=== PATIENT | male | born 1960 | race Caucasian/White ===

== ENCOUNTER → 2017-12-04 09:18 | Outpatient (CLI) | payer OTHER, SELFPAY ==
--- NOTE | 2017-12-04 09:29 | RAD_ITS ---
PROCEDURE: Fluoroscopic guided right shoulder Injection DATE: December 04, 2017. INDICATION: Male, 57 years old. Right shoulder pain. PHYSICIAN: Vaibhav Archer M.D. MEDICATIONS: 12 mg of betamethasone and 4 cc of 1% lidocaine. 2% Lidocaine administered subcutaneously for local anesthesia. ACCESS SITE: Right shoulder. NEEDLE: 22-gauge spinal needle. FLUOROSCOPY TIME (if supplied): (0:29) minutes/seconds FINDINGS: The risks, benefits, and alternatives to the procedure were explained to the patient. The specific risks of bleeding, infection, and neurovascular injury were detailed and accepted. Witnessed informed consent was obtained. A 22-gauge spinal needle was positioned under radiographic fluoroscopic localization. Approximately 2 cc of Isovue-300 instilled for localization purposes. Medication was then injected. The patient tolerated the procedure well without any immediate complications. The patient was placed supine with head elevated and returned to the floor in stable condition. RAD/Inj/Asp Augustin Jt Should/Hip/Knee IMPRESSION: 1. Successful fluoroscopic guided right shoulder injection. Electronically Signed: Vaibhav Archer MD at 10:38 EST Tel [phone], Service support ,
== END ==
PROVIDERS: Family Provider Internal Medicine; PCP Internal Medicine; Visit Provider Specialist
DX: M25.511 Pain in right shoulder (principal)
CPT/HCPCS: 20610; 77002; J0702

== ENCOUNTER → 2021-02-14 08:25 | Outpatient (CLI) | payer OTHER, SELFPAY ==
--- NOTE | 2021-02-14 08:50 | RAD_ITS ---
PROCEDURE: Fluoroscopic guided right shoulder injection. DATE: 02/14/2021 INDICATION: Male, 60 years old. Right shoulder pain. PHYSICIAN: Vaibhav Archer M.D. MEDICATIONS: 12 mg of BETAMETHASONE and 4 cc of 1% LIDOCAINE. 2% lidocaine administered subcutaneously for local anesthesia. ACCESS SITE: Right shoulder. NEEDLE: 22-gauge spinal needle. FLUOROSCOPY TIME (if supplied): (0:42) minutes/seconds. One image was submitted. FINDINGS: The risks, benefits, and alternatives to the procedure were explained to the patient. The specific risks of bleeding, infection, and neurovascular injury were detailed and accepted. Witnessed informed consent was obtained. A 22-gauge spinal needle was positioned under radiographic fluoroscopic localization. Approximately 2 cc of ISOVUE-300 instilled for localization purposes. Medication was then injected. The patient tolerated the procedure well without any immediate complications. RAD/Inj/Asp Augustin Jt Should/Hip/Knee IMPRESSION: 1. Successful fluoroscopic guided right shoulder injection. Electronically Signed: Vaibhav Archer MD at 9:34 EDT , Service support ,
== END ==
PROVIDERS: PCP Internal Medicine; Referring Provider Specialist; Visit Provider Specialist
DX: M19.011 Primary osteoarthritis, right shoulder (principal)
CPT/HCPCS: 20610; 77002; J0702

== ENCOUNTER → 2021-04-12 08:37 | Outpatient (CLI) | payer OTHER, SELFPAY ==
--- NOTE | 2021-04-13 09:35 | PFT ---
INTRODUCTION: The patient is a 60-year-old male that presents for pulmonary function studies secondary to a diagnosis of abnormal chest x-ray. Respiratory therapy reports good patient effort. Bronchodilators were used during testing. INTERPRETATION: Forced expiration spirometry demonstrates no evidence of a large airways obstructive ventilatory defect. There was no significant response to aerosolized bronchodilators. Spirograms are of good quality and plateau gradually indicating slow emptying of the lungs. Body plethysmography was performed and reveals lung volumes to be within normal limits. Diffusing capacity by single breath CO is also within normal limits. IMPRESSION: Grossly normal pulmonary function studies.
== END ==
PROVIDERS: PCP Internal Medicine; Referring Provider Internal Medicine; Visit Provider Internal Medicine
DX: R93.89 Abnormal findings on diagnostic imaging of other specified body structures (principal)
CPT/HCPCS: 94060; 94726; 94729

== ENCOUNTER → 2021-05-18 08:50 | Outpatient (CLI) | payer OTHER, SELFPAY ==
--- NOTE | 2021-05-18 09:01 | EKG12_ITS ---
Test Reason : REOP Blood Pressure : / mmHG Vent. Rate : 057 BPM Atrial Rate : 057 BPM P-R Int : 164 ms QRS Dur : 102 ms QT Int : 396 ms P-R-T Axes : 065 087 048 degrees QTc Int : 385 ms Sinus bradycardia Otherwise normal ECG Confirmed by ZACH FONSECA, SANTA ([id number]), job superintendent JUDY WOOTEN ([id number]) on 05/19/2021 1:35:25 PM Referred By: Moahn Pagan Confirmed By:SANTA SERRANO MD
[2021-05-18 10:00] LABS: Hematocrit 43.8 % (40-54); Hemoglobin 14.1 g/dL (13.0-16.5); Mean Corp Hgb Conc 32.2 g/dL (32-36); Mean Corpuscular Hgb 29.2 pg (27.0-32.0); Mean Corpuscular Volume 90.7 fL (80-94); Mean Platelet Vol. 9.8 fl (6.2-12.0); Platelet Count 268 K/mm3 (150-450); RBC Distribution Width CV 12.2 % (11.6-14.6); RBC Distribution Width SD 40.4 fl (35.1-43.9); Red Blood Count 4.83 M/mm3 (4.6-6.2); White Blood Count 4.6 K/mm3 (4.4-11.0)
[2021-05-18 10:37] LABS: Anion Gap 3 (5-15); BUN 12 mg/dL (7-18); BUN/Creat Ratio 14.1 RATIO (10-20); Calcium,Total 8.9 mg/dL (8.5-10.1); Chloride 108 mmol/L (98-107); Creatinine, Serum 0.85 mg/dL (0.70-1.30); EST Glomerular Filtration Rate 97 mL/min (>60); Est Glom Filt Rate - Afr Amer 117 mL/min (>60); Glucose 95 mg/dL (74-106); Potassium 3.8 mmol/L (3.5-5.1); Sodium Level 142 mmol/L (136-145)
== END ==
PROVIDERS: PCP Internal Medicine; Referring Provider Physician Assistant; Visit Provider Physician Assistant
DX: Z01.818 Encounter for other preprocedural examination (principal); Z01.810 Encounter for preprocedural cardiovascular examination
CPT/HCPCS: 36415; 80048; 85027; 93005

== ENCOUNTER → 2022-03-28 | Outpatient (CLI) | payer OTHER, SELFPAY ==
--- NOTE | 2022-03-28 07:55 | RAD_ITS ---
STUDY: X-RAY - ESOPHAGUS (BARIUM SWALLOW) WITH FLUOROSCOPY REASON FOR EXAM: Male, 61 years old. DYSPHAGIA TECHNIQUE: 15 view(s) of the esophagus were obtained following swallowing of barium. FLUOROSCOPY TIME (if supplied): (36 seconds) minutes/seconds COMPARISON: None. FINDINGS: There is no demonstrated esophageal foreign body. There is no demonstrated stricture or mucosal abnormality. Normal gastroesophageal junction, without a demonstrated hiatal hernia. The patient ingested a 12 mm tablet of barium without any difficulty. Normal visualized aortic arch and descending thoracic aorta. Normal visualized pulmonary parenchyma. Normal visualized osseous structures of the thorax. RAD/Esophagus Dual Contrast IMPRESSION: Normal plain film x-ray examination (barium swallow) of the esophagus. Electronically Signed: Vaibhav Archer MD at 8:21 EDT ,
== END | disposition home or self-care (01) ==
LOC: RAD 07:42
PROVIDERS: PCP Internal Medicine; Referring Provider Internal Medicine Gastroenterology; Visit Provider Internal Medicine Gastroenterology
DX: R13.10 Dysphagia, unspecified (principal)
CPT/HCPCS: 74221

== ENCOUNTER 2022-11-02 07:51 | Outpatient (CLI) | payer OTHER, SELFPAY ==
[2022-11-02 10:27] LABS: Anion Gap 5 (5-15); BUN 20 mg/dL (7-18); BUN/Creat Ratio 14.9 RATIO (10-20); Calcium,Total 9.1 mg/dL (8.5-10.1); Chloride 105 mmol/L (98-107); Creatinine, Serum 1.34 mg/dL (0.70-1.30); EST Glomerular Filtration Rate 57 mL/min (>60); Est Glom Filt Rate - Afr Amer 70 mL/min (>60); Glucose 113 mg/dL (74-106); Potassium 4.5 mmol/L (3.5-5.1); Sodium Level 138 mmol/L (136-145)
== END 2022-11-02 23:59 | disposition home or self-care (01) ==
LOC: MTLAB 07:53
PROVIDERS: PCP Internal Medicine; Referring Provider Anesthesiology Pain Medicine; Visit Provider Anesthesiology Pain Medicine
DX: M51.37 Other intervertebral disc degeneration, lumbosacral region (principal); Z79.1 Long term (current) use of non-steroidal anti-inflammatories (NSAID)
CPT/HCPCS: 36415; 80048

== ENCOUNTER → 2023-09-26 | Outpatient (CLI) | payer OTHER, SELFPAY ==
[2023-09-26 10:22] LABS: Hematocrit 46.3 % (40-54); Hemoglobin 14.8 g/dL (13.0-16.5); Mean Corpuscular Hgb 28.7 pg (27.0-32.0); Mean Corpuscular Volume 89.7 fL (80-94); Mean Platelet Vol. 9.5 fl (6.2-12.0); Platelet Count 302 K/mm3 (150-450); RBC Distribution Width CV 12.2 % (11.6-14.6); RBC Distribution Width SD 40.5 fl (35.1-43.9); Red Blood Count 5.16 M/mm3 (4.6-6.2); White Blood Count 5.9 K/mm3 (4.4-11.0)
[2023-09-26 10:34] LABS: Erythrocyte Sedimentation Rate < 1 mm/hr (0-20)
[2023-09-26 10:59] LABS: Vitamin B12 343 pg/mL (211-911)
[2023-09-26 11:20] LABS: ALB/GLOB Ratio 1.2 RATIO (0.9-2.4); AST(SGOT) 17 U/L (15-37); Alanine Aminotransfer ALT/SGPT 39 U/L (16-61); Albumin, Serum 3.8 g/dL (3.2-5.0); Alkaline Phosphatase 68 U/L (45-117); Anion Gap 3 (5-15); BUN 14 mg/dL (7-18); BUN/Creat Ratio 13.1 RATIO (10-20); CRP < 2.90 mg/L (0.0-3.0); Calcium,Total 8.8 mg/dL (8.5-10.1); Chloride 104 mmol/L (98-107); Creatinine, Serum 1.07 mg/dL (0.70-1.30); EST Glomerular Filtration Rate 74 mL/min (>60); Est Glom Filt Rate - Afr Amer 90 mL/min (>60); Globulin 3.3 g/dL (2.2-4.2); Glucose 96 mg/dL (74-106); Protein, Total 7.1 g/dL (6.4-8.2); Sodium Level 138 mmol/L (136-145); Thyroid Stim Hormone (TSH) 1.23 uIU/mL (0.358-3.74)
[2023-10-03 09:08] LABS: Albumin 3.9 g/dL (2.9-4.4); Alpha-1-Globulins 0.2 g/dL (0.0-0.4); Alpha-2-Globulins 0.6 g/dL (0.4-1.0); Arsenic 7245 2 ug/L (0-9); Gamma Globulin 0.9 g/dL (0.4-1.8); Immunoglobulin A 205 mg/dL (61-437); Immunoglobulin G 919 mg/dL (603-1613); Immunoglobulin M 103 mg/dL (20-172); Lead, Blood < 1.0 ug/dL (0.0-3.4); Mercury, Blood 85324 < 1.0 ug/L (0.0-14.9); PROEL- TOTAL PROTEIN 6.5 g/dL (6.0-8.5); PROELU- Albumin, Urine 37.5 % (.); PROELU- Alpha-1-Globulin,Ur 10.3 % (.); PROELU- Alpha-2-Globulin,Ur 17.8 % (.); PROELU- Beta Globulin, Ur 22.5 % (.); PROELU- Gamma Globulin, Ur 11.8 % (.); Total Protein, Ur 10.1 mg/dL (Not Estab.)
== END | disposition home or self-care (01) ==
PROVIDERS: PCP Internal Medicine; Referring Provider Nurse Practitioner Family; Visit Provider Nurse Practitioner Family
DX: R20.2 Paresthesia of skin (principal)
CPT/HCPCS: 36415; 80053; 82175; 82607; 82784; 83655; 83825; 84156; 84165; 84166; 84443; 85027; 85652; 86140; 86334

== ENCOUNTER → 2023-12-18 | Outpatient (CLI) | payer OTHER, SELFPAY ==
[2023-12-18 10:10] LABS: PSA,Total - Annual Screen 0.39 ng/mL (0.00-4.00)
== END | disposition home or self-care (01) ==
LOC: LAB 09:01
PROVIDERS: PCP Internal Medicine; Referring Provider Urology; Visit Provider Urology
DX: Z12.5 Encounter for screening for malignant neoplasm of prostate (principal)
CPT/HCPCS: 36415; 84153; G0103

== ENCOUNTER 2024-12-29 06:32 | Day surgery (SDC) | payer OTHER, SELFPAY ==
[2024-12-29] VITALS (8 sets, daily range): BP systolic 118–132; BP diastolic 73–93; PULSE 73–82; RESP 14–18; TEMP 36.1–36.6; O2SAT 93–99; BMI 27.5
--- NOTE | 2024-12-29 07:40 | PRE.ANES_ITS ---
ASA Classification* ASA Classification ASA Classification: 2 Assessment & Plan Anesthesia* Anesthesia Assessment Anesthesia Assessment: Discussed sedation and/or anesthesia options, risks, benefits, and alternatives with patient/parents/legal guardian/POA. Questions invited. The patient/parents/legal guardian/POA seems to understand and agrees to proceed with anesthesia plan. Reviewed the physical assessment, medical history, allergy history and patient home medications list prior to surgery/procedure/anesthetic and documented any changes. Performed airway and anesthesia risk assessments. Anesthesia Type Anesthesia Type: MAC History Source History Obtained from:: Patient and Chart Anesthesia Focused Assessment* Temperature: 97.9 F Pulse Rate: 76 Blood Pressure: 123/73 Respiratory Rate: 18 Pulse Ox: 99 Oxygen Delivery Method: Room Air Airway Assessment Mouth opens: >3 cm Mallampati Score: III Teeth Condition: Caps/Crowns (Left lower molar has a crown. It is tight.) and Missing (Right lower molar is missing. Rest of the teeth are tight.) Neck Range of motion (ROM): Limited ROM Focused Labs Anesthesia Preop lab: CBC WBC 5.9 K/mm3 (4.4-11.0) 09/26/23 08:24 09/26/23 RBC 5.16 M/mm3 (4.6-6.2) 09/26/23 08:24 09/26/23 Hgb 14.8 g/dL (13.0-16.5) 09/26/23 08:24 09/26/23 Hct 46.3 % (40-54) 09/26/23 08:24 09/26/23 Plt Count 302 K/mm3 (150-450) 09/26/23 08:24 09/26/23 CHEMISTRY Potassium 4.0 mmol/L (3.5-5.1) 09/26/23 08:24 09/26/23 Sodium 138 mmol/L (136-145) 09/26/23 08:24 09/26/23 BUN 14 mg/dL (7-18) 09/26/23 08:24 09/26/23 Creatinine 1.07 mg/dL (0.70-1.30) 09/26/23 08:24 09/26/23 Glucose 96 mg/dL (74-106) 09/26/23 08:24 09/26/23 TSH 1.23 uIU/mL (0.358-3.74) 09/26/23 08:24 COAG Pre-Assessment Diagnosis/Proposed Procedure Planned Operative Procedure(s): LEFT LUMBAR RFA AT MEDIAL BRANCH OF L4-L5 AND S1 UNDER FLUOROSCOPY Anesthesia History 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 When Was Last Pacemaker Check QUESTION #4 FULL TEXT: You/Your Family Experience fever (hyperthermia) with Anesthesia Last Oral Intake Last Oral intake: Last Oral Intake NPO since 21:00 12/29/24 07:02 Meds taken in AM with sips of Yes 12/29/24 07:02 water? 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 operator: PONV - gum scoring machine operator Female No 12/17/24 13:55 HX of Motion Sickness No 12/17/24 13:55 HX of N/V After Surgery No 12/17/24 13:55 Non-Smoker Yes 12/17/24 13:55 Duration of Surgery greater No 12/17/24 13:55 than 60 minutes Number of Risk Factors 1 12/17/24 13:55 PONV Score Low Risk 12/17/24 13:55 Height & Weight Height & Weight: Anesthesia: Height & Weight Height 5 ft 11 in 12/29/24 07:02 Weight: 89.448 kg 12/29/24 07:02 Body Mass Index (BMI) 27.5 12/29/24 07:02 Respiratory Assessment Respiratory Assessment - gum scoring machine operator: Respiratory Tract Infection Hx - gum scoring machine operator Hx Respiratory Tract Infection No 12/17/24 13:55 STOP Sleep Apnea STOP Sleep Apnea - gum scoring machine operator: STOP Sleep Apnea - gum scoring machine operator Hx Hypertension No 12/17/24 13:55 Hx Sleep Apnea Yes 03/05/25 13:55 CPAP Yes 12/17/24 13:55 BIPAP No 12/17/24 13:55 Do you snore loudly (louder than talking or can be heard Do you often feel tired/ fatigued/ sleepy during daytime? Has anyone observed you stop breathing during sleep? STOP Results Positive 12/17/24 13:55 QUESTION #5 FULL TEXT : Do you snore loudly (louder than talking or can be heard through closed doors)? 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 Specify any problems Hx of Preganancy in last 3 N/A 12/17/24 13:55 Months Nurse Filling Out Transfusion [email or web address] 12/17/24 13:55 & Questions: Date: 12/17/24 12/17/24 13:55 Time: 13:57 12/17/24 13:55 Patient unable to answer at this time (ie. 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: /Reproductive Hx- gum scoring machine operator Hx Now Gestational Age (in weeks): EDC: Hx Hx Para Hx Section SAB PFSH Medical History Wears glasses History of steroid therapy Prostate disease Back pain Trigger middle finger Rotator cuff arthropathy of left shoulder Gastric reflux COPD (chronic obstructive pulmonary disease) Home Medications ?Medication ?Instructions ?Recorded ?Last Taken ?Type cholecalciferol (vitamin D3) 125 125 mcg PO DAILY 03/0812/28/24 History mcg (5,000 unit) tablet (Vitamin D3) finasteride 5 mg tablet 5 mg PO DAILY 12/17/2412/28 History gabapentin 300 mg capsule 300 mg PO QHS 12/17/2412/28 History glucosamine sulfate 500 mg tablet 1,000 mg PO QDAY 03/0812/28/24 History (Glucosamine) pantoprazole 40 mg tablet,delayed 40 mg PO DAILY 12/1712/29/24 04:30 History release pravastatin 20 mg tablet 20 mg PO DAILY 12/17/2412/13 History tamsulosin 0.4 mg capsule (Flomax) 0.4 mg PO DAILY 03/0812/28/24 History Allergy/AdvReac Type Severity Reaction Status Date / Time No Known Allergies Allergy Verified 12/29/24 06:57 Surgical History (Updated 12/29/24 @ 07:[address] Hunter Guevara MD) H/O radiofrequency ablation (RFA) of nerve of lumbar spine Trigger finger, right middle finger S/P left rotator cuff repair Social History Smoking Status: Former smoker Review of Systems (Anesthesia) ROS Narrative System reviewed and no additional complaints, except as documented.
--- NOTE | 2024-12-29 08:03 | RAD_ITS ---
PROCEDURE: L/S SPINE WITH MOBILE C-ARM IN THE OPERATING ROOM REASON FOR EXAM: LT SIDE LUMBAR RADIOFREQUENCY ABLATION L4 L5 S1 TECHNIQUE: EIGHT (8) images of the lumbar spine were obtained in the operating room with mobile C-arm. COMPARISON: None. FINDINGS: Multiple images were obtained with the mobile C-arm with radiofrequency ablation leads in place at different stages of the procedure. For further detail please see operative report. Fluoroscopy: 25.7 sec Dose: 10.25 mGy RAD/L/S Spine Min 4 Views IMPRESSION: Multiple imaging obtained during radiofrequency ablation of L4 through S1. Reading Location: [facility]
[2024-12-29] MEDS: Lidocaine 1% (30 ml sdv) 30 ML Vial ×2 (08:13→08:14)
[2024-12-29] MEDS: Bupivacaine 0.25% 30 ML Vial (08:14)
[2024-12-29] MEDS: MethylPREDNISolone Acetate 40 MG/ML Vial (08:15)
--- NOTE | 2024-12-29 08:20 | OP.PCM_ITS ---
Operative Report (Standard) Operative Information Date of Procedure: 12/29/24 Pre-Operative Diagnosis: Lumbosacral spondylosis, lumbosacral degenerative disc disease, lumbar facet arthropathy Post-Operative Diagnosis: Lumbosacral spondylosis, lumbosacral degenerative disc disease, lumbar facet arthropathy Surgery/Procedure Performed: Left-sided lumbar radiofrequency ablation of the medial branch at L4, L5, S1 under fluoroscopy death surveys coder: No Type of Anesthesia: Local MAC RN Documented Start/Stop Times: Operation Date: 12/29/24 08:00 Case Time Into Pre-Op 12/29/24 06:41 Anesthesia Start 12/29/24 08:03 Into Room 12/29/24 08:03 Procedure Start 12/29/24 08:09 Procedure Start Time: 08:21 Procedure Stop Time: 08:21 Select all DRAINS/GRAFTS/IMPLANTS that apply: None Estimated Blood Loss: 1 Specimen collected: No Description of surgery: ANESTHESIA: MAC. BLOOD LOSS: Minimal. COMPLICATIONS: None. DESCRIPTION OF PROCEDURE: History and physical of today was reviewed. Risks and benefits of the procedure were explained. The patient understood and agreed to proceed. Informed consent was obtained. IV inserted per routine protocol. The patient was taken to the operating room and placed in the prone position with a pillow positioned underneath the abdomen. The left side of her lower back was prepped and draped in a sterile fashion using iodine x3. Under fluoroscopy guidance in an oblique view, the L3 through S1 vertebral bodies were visualized. The skin and subcutaneous tissue was anesthetized with approximatel y 10 mL of 1% lidocaine using a 25-gauge regular needle. Under direct visualization on fluoroscopy at approximately 25-degree angle, starting on the left L3, ending on the left S1, passing through the L4 and L5, using a 20-gauge 15-cm with a 10-mm curved active-tip radiofrequency ablation needle, the needle was passed through the skin. The tip of the needle was maneuvered and directed towards the superior medial gutter of the transverse process at the vicinity of the medial branch. Once the tip of the needle was in contact with the bone, the needle was pulled approximately 2 mm off the bone. The stylette of each needle was then removed. After negative aspiration of blood or CSF and confirmation on AP, oblique as well as lateral view, the radiofrequency ablation probe was then inserted at each level. Impedance was then recorded at L3 to be 287 ohm, at L4 to be 297 ohm, at L5 to be 289 ohm, and at S1 to be 372 ohm. Motor evoked potential was then initiated to 1.5 volt without any motor response at each corresponding level. The probe was then removed intact and a total of 6 mL of preservative-free 1% lidocaine was injected in divided doses between those four levels after negative aspiration of blood or CSF. The radiofrequency ablation probe was then reinserted. After confirmation on AP, oblique as well as lateral view, radiofrequency ablation was then initiated to 80 degree Celsius for 90 second at each level. Once concluded, the probe was then removed intact. A total of 6 mL of preservative-free 0.25% Marcaine with 40 mg of Depo-Medrol was injected in divided doses between those four levels. The needles were then removed intact. The patient experienced no sign or symptoms of intrathecal or intravascular injection. The patient experienced no paresthesia. The procedure was completed without any apparent difficulty or any complications. The patient appeared to tolerate it well. Sensory as well as motor exam was unchanged from prior to the procedure. ASSESSMENT AND PLAN: This is a 64-year-old male with lumbosacral spondylosis, lumbosacral degenerative disc disease, lumbar facet arthropathy status post left-sided lumbar radiofrequency ablation of the medial branch at L4-S1, patient will continue with his current medications, patient will follow-up in approximately 1 to 2 weeks for reevaluation. Surgical Findings: 1 Complications Complications: No Admit VTE Documentation VTE Present on Admission: No VTE Pharm Prophylaxis ordered?: No
--- NOTE | 2024-12-29 08:26 | PCM.POST.ANE ---
Anesthesia: Postop Eval I Current Vital Signs Temperature: 97 F Pulse Rate: 78 Blood Pressure: 132/93 Respiratory Rate: 14 Pulse Ox: 98 Assessment Airway patent: Yes Spontaneous unlabored respirations: Yes Mental status: Awake nausea: No Vomiting: No Anesthesia Complication: No Fluid Hydration Crystalloid volume administer (ml): 10 Total IV fluid infused: 10 Progress Note Anesthesia document: Postop Eval 1 completed: Yes
--- NOTE | 2024-12-29 10:02 | POSTOPAN2_ITS ---
Anesthesia Postop Eval I Sum Postop Eval Completion status Anesthesia document: Postop Eval 1 completed: Yes Anesthesia Postop Eval I Summary Anesthesia Postop Eval I Summary: Anesthesia Postop Eval I: Assessment Summary Airway patent Yes 12/29/24 08:27 [email or web address] Spontaneous unlabored Yes 12/29/24 08:27 PICTURE [email or web address] respirations Mental status Awake 12/29/24 08:27 PICTURE [email or web address] nausea No 12/29/24 08:27 PICTURE [email or web address] Vomiting No 12/29/24 08:27 PICTURE [email or web address] Anesthesia Postop Eval I: Fluid Summary Crystalloid volume administer 10 12/29/24 08:27 PICTURE [email or web address] (ml) Colloids volume administered ( ml) Blood Product volume administered (ml) Total IV fluid infused 10 12/29/24 08:27 PICTURE [email or web address] Anesthesia Postop Eval I: Summary Notes Anesthesia Complication No 12/29/24 08:27 [email or web address] Anesthesia Complication Comment: Post-operative progress note Anesthesia: Postop Eval II Evaluation Mental status: Awake Pain Level: 2 nausea: No Vomiting: No
--- NOTE | 2024-12-29 10:02 | PCM.POSTANE2 ---
Anesthesia Postop Eval I Sum Postop Eval Completion status Anesthesia document: Postop Eval 1 completed: Yes Anesthesia Postop Eval I Summary Anesthesia Postop Eval I Summary: Anesthesia Postop Eval I: Assessment Summary Airway patent Yes 12/29/24 08:27 WATER METER [email or web address] Spontaneous unlabored Yes 12/29/24 08:27 WATER METER [email or web address] respirations Mental status Awake 12/29/24 08:27 WATER METER [email or web address] nausea No 12/29/24 08:27 WATER METER [email or web address] Vomiting No 12/29/24 08:27 WATER METER [email or web address] Anesthesia Postop Eval I: Fluid Summary Crystalloid volume administer 10 12/29/24 08:27 WATER METER [email or web address] (ml) Colloids volume administered ( ml) Blood Product volume administered (ml) Total IV fluid infused 10 12/29/24 08:27 WATER METER [email or web address] Anesthesia Postop Eval I: Summary Notes Anesthesia Complication No 12/29/24 08:27 WATER METER [email or web address] Anesthesia Complication Comment: Post-operative progress note Anesthesia: Postop Eval II Evaluation Mental status: Awake Pain Level: 2 nausea: No Vomiting: No
== END 2024-12-29 09:06 | disposition home or self-care (01) ==
LOC: SDC 06:32 → AC 06:33
PROVIDERS: PCP Internal Medicine; Referring Provider Anesthesiology Pain Medicine; Visit Provider Anesthesiology Pain Medicine
PROC: (CPT 64635; principal; 2024-12-29 07:55)
DX: M51.379 Other intervertebral disc degeneration, lumbosacral region without mention of lumbar back pain or lower extremity pain (principal); J44.9 Chronic obstructive pulmonary disease, unspecified; M47.816 Spondylosis without myelopathy or radiculopathy, lumbar region; M47.817 Spondylosis without myelopathy or radiculopathy, lumbosacral region; K21.9 Gastro-esophageal reflux disease without esophagitis; Z79.899 Other long term (current) drug therapy; Z87.891 Personal history of nicotine dependence
CPT/HCPCS: 64635; 64636; 01992; 72110; 76000; A4216

== ENCOUNTER → 2025-01-05 | Outpatient (CLI) | payer OTHER, SELFPAY ==
[2025-01-05 23:50] LABS: PSA,Total - Annual Screen 0.21 ng/mL (0.02-4.00)
== END | disposition home or self-care (01) ==
LOC: LAB 08:10
PROVIDERS: PCP Internal Medicine; Referring Provider Nurse Practitioner; Visit Provider Nurse Practitioner
DX: Z12.5 Encounter for screening for malignant neoplasm of prostate (principal)
CPT/HCPCS: 36415; 84153; G0103

== ENCOUNTER 2025-05-04 06:58 | Day surgery (SDC) | payer OTHER, SELFPAY ==
[2025-05-04] VITALS (8 sets, daily range): BP systolic 104–119; BP diastolic 65–87; PULSE 60–83; RESP 15–16; TEMP 36.3–36.8; O2SAT 98–100; BMI 27.6
--- OUTSIDE RECORDS SUMMARY | 2025-05-04 07:05 | XMS RPT_ITS | CCD ---
Author Organization [facility] Care Team Providers Care Rotating Equipment Engineer Name Role Phone Shyam, Heather Unavailable Jesus Cox Unavailable DelanocedrickNadia white Unavailable Unavailable Unavailable Unavailable Jesus Cox Unavailable Gravius, Licha Unavailable Unavailable Shyam, Heather Unavailable Jesus Cox Unavailable Gravius, Licha Unavailable Unavailable Unavailable Unavailable Charlie Dhillon Unavailable Unavailable Unavailable Unavailable Eze Mckeon Unavailable Bethanie Watson Unavailable Unavailable Gravius, Licha Unavailable Unavailable oJsefa Reinoso Unavailable Unavailable Shyam DO, Heather Unavailable Kenny FONSECA, Dr. Jesus Workman Unavailable Mary Mejia Unavailable Eze Mckeon Unavailable Gravedgardo DAMICO, Licha Unavailable Unavailable Charlie Dhillon LPN Unavailable Unavailable Unavailable Unavailable Carri Feng MD Unavailable Bethanie Watson LPN Unavailable Unavailable Shyam DO, Heather Unavailable [phone] Crescencio Tyler Unavailable Shyam DO Heather Attending Unavailable Fast DO, Bonnie A Referring Unavailable Shyam DO, Heather Consulting Unavailable Knapic DO , Dr. Farhan Bryant Unavailab le Marlon RN INTERVENTIONAL, Kayela Unavailable Unavailable Shyam DO, Heather Primary Care Provider KWAKU SINGLETON Attending Unavailable MARIAH ESTEBAN Attending Unavailable Shyam DE LA FUENTE, Dr. Romero Primary Care Provider Dr. Carlos Santo MD Attending Provider Dr. Carlos Santo MD Referring Provider [phone] [place], Laura Attending Provider [phone] [place], Laura Referring Provider [phone] Heather Howe Primary Care Unavailable Carlos Santo Attending Unavailable Carlos Santo Referring Unavailable Dilcia, Laura Referring Unavailable Heather Howe Primary Care Unavailable [place], Laura Attending Unavailable Heather Howe Primary Care Unavailable Carlos Santo Attending Unavailable Carlos Santo Referring Unavailable Medications Current Medications Medication Drug Class(es) Dates Sig (Normalized) Sig (Original) cholecalciferol 0.125 mg oral tablet (12 sources) Vitamin D Start: 12-17-2024 take 1 tablet by mouth once daily Cholecalciferol (Vitamin D3) (Vitamin D3) 125 mcg (5,000 unit) tablet Active 125 ug PO DAILY December 17, 2024 1:00am take 1 capsule by mouth once musa ly Vitamin D 30395 UNIT Oral Capsule 1 daily (06639 U) Active finasteride 5 mg oral tablet (11 sources) 5-alpha Reductase Inhibitor Start: 12-17-2024 take 1 tablet by mouth once daily Finasteride 5 mg tablet Active 5 mg PO DAILY December 17, 2024 1:00am Start: 01-29-2023 take 1 tablet by helen th once daily finasteride 5 mg oral tablet 1 (one) tablet Once a day. for 0 days Quantity: 30 {Tablet} Refills: 0 Ordered: 29-Jan-2023 Heather Howe DO, DO, Kathleen Start : 29-Jan-2023 Active gabapentin 300 mg oral capsule (20 sources) Anti-epileptic Agent Start: 12-17-2024 take 1 capsule by mouth at bedtime Gabapentin 300 mg capsule Active 300 mg PO AT BEDTIME December 17, 2024 1:00am Start: 09-25-2023 End: 09-18-2025 take 4 capsules by mouth at bedtime gabapentin (Neurontin) 300 MG capsule Indications: RLS (restless legs syndrome) Take 4 capsules (1,200 mg) by mouth at bedtime 360 capsule 3 09/23/2024 09/18/2025 Active Start: 11-12-2019 take 3 mg by mouth o nce at bedtime Gabapentin 300 MG Oral Capsule 3 (three) Milligram q hs for 90 days Quantity: 270 {Capsule} Refills: 0 Ordered: 12-Nov-2019 Heather Howe DO, DO, Kathleen Start : 12-Nov-2019 Active Comments: Mail order. two hundred and [id number] Start: 03-28-2018 take 3 mg by mouth o nce at bedtime Gabapentin 300 MG Oral Capsule 3 (three) Milligram q hs for 90 days Quantity: 270 {Capsule} Refills: 0 Ordered: 28-Mar-2018 Heather Howe DO, DO, Kathleen Start : 28-Mar-2018 Active Comments: Mail order. [id number] End: 09-23-2024 take 3 capsules by mouth at bedtime gabapentin (Neurontin) 300 MG capsule take 3 capsules by mouth at bedtime 09/23/2024 Discontinued Comment on above: [id number] Mail order. [id number] 5.81 Mail order. two hund red and [id number] glucosamine sulfate 500 mg oral tablet (2 sources) Start: 12-18-19 25 take 2 tablets by mouth once daily Glucosamine Sulfate (Glucosamine) 500 mg tablet Active 1000 mg PO daily December 17, 2024 1:00am administer with a meal pantoprazole 40 mg delayed release oral tablet (20 sources) Proton Pump Inhibitor Start: 12-18-19 25 take 1 tablet by mouth once daily Pantoprazole 40 mg tablet,delayed release (DR/EC) Active 40 mg PO DAILY December 17, 2024 1:00am Start: 06-05-2023 pantoprazole 4 0 mg oral tablet, delayed release (enteric coated) [address] daily for 90 days Quantity: 90 {Tablet} Refills: 2 Ordered: 05-Jun-2023 Kasie Tanner CNP Start : 05-Jun-2023 Active Comments: Mail order. Start: 06-05-2023 pantoprazole 4 0 mg oral tablet, delayed release (enteric coated) [address] daily for 30 days Quantity: 30 {Tablet} Refills: 3 Ordered: 05-Jun-2023 Ciro TAY Kasie Start : 05-Jun-2023 Active Start: 04-09-2023 pantoprazole 4 0 mg oral tablet, delayed release (enteric coated) [address] daily for 90 days Quantity: 90 {Tablet} Refills: 2 Ordered: 09-Apr-2023 Ciro Kasie CROSS Start : 09-Apr-2023 Active Comments: Mail order. Start: 04-09-2023 pantoprazole 4 0 mg oral tablet, delayed release (enteric coated) [address] daily for 30 days Quantity: 30 {Tablet} Refills: 0 Ordered: 09-Apr-2023 Ciro Kasie CROSS Start : 09-Apr-2023 Active Start: 08-02-2018 take 1 tablet by helen th once daily pantoprazole 40 mg oral tablet, delayed release (enteric coated) 1 tab daily (40 mg) Start : 11-Dec-2022 Active Comment on above: Mail order. [facility] Mail order. pravastatin sodium 20 mg oral tablet (20 sources) HMG-CoA Reductase Inhibitor Start: 12-17-2024 take 1 tablet by mouth once daily Pravastatin 20 mg tablet Active 20 mg PO DAILY December 17, 2024 1:00am Start: 04-07-2021 take 1 tablet by helen th once daily pravastatin 20 mg oral tablet 1 (one) Tablet daily for 90 days Quantity: 90 {Tablet} Refills: 3 Ordered: 26-Oct-2022 Heather Howe DO, DO, Kathleen Start : 26-Oct-2022 Active Comments: E78.00 Comment on above: E78.00 Mail order. tamsulosin hydrochloride 0.4 mg oral capsule (16 sources) alpha-Adrenergic Stephon Start: 12-17-2024 take 1 capsule by mouth once daily Tamsulosin (Flomax) 0.4 mg capsule Active 0.4 mg PO DAILY December 17, 2024 1:00am Tamsulosin HCl 0 .4 MG Oral Capsule (0.4 MG) Active Comments: urology Comment on above: urology vitamin B12 (2 sources) Vitamin B12 take 1000 ug by mout h once daily Cyanocobalamin (VITAMIN B 12 PO) Take 1,000 mcg by mouth Daily Active Completed/Discontinued Medications Medication Drug Class(es) Dates Sig (Normalized) Sig (Original) aspirin 500 mg / caffeine 32.5 mg oral tablet (20 sources) Platelet Aggregation Inhibitor, Nonsteroidal Anti-inflammatory Drug, Central Nervous System Stimulant, Methylxanthine Start: 02-07-2016 End: 03-27-2016 take 1 tablet by mouth every eight hours as needed YESSY BACK & BODY PAIN EX ST, 500-32.5MG (Oral Tablet) 1 (one) Tablet q8hrs prn for 0 days Quantity: 30 {Tablet} Refills: 0 Ordered: 27-Mar-2016 Josefa Reinoso RN Start : 07-Feb-2016 End : 27-Mar-2016 Inactive calcium carbonate 750 mg chewable tablet (20 sources) End: 07-06-2014 TUMS SMOOTHIES, 750MG (Oral Tablet Chewable) 2 to 3 tabs prn (750 MG) End : 06-Jul-2014 Discontinued chromium picolinate 0.2 mg / gamboge 500 mg oral tablet (10 sources) End: 03-12-2015 take 1 tablet by mouth three times daily GARCINIA CAMBOGIA-CHROMIUM, [id number] (Oral Tablet) 1 tab tid (500-200 MG-MCG) End : 12-Mar-2015 Discontinued Florify (20 sources) End: 11-17-2015 Florify 1 cap daily End : 17-Nov-2015 Discontinued Comments: Probiotic Comment on above: Probiotic Garcinia Cambogia-Chromium (4 sources) End: 03-12-2015 take 1 tablet by mouth three times daily GARCINIA CAMBOGIA-CHROMIUM, [id number] (Oral Tablet) 1 tab tid (500-200 MG-MCG) End : 12-Mar-2015 Discontinued GARCINIA CAMBOGIA-CHROMIUM, [id number] (Oral Tablet) (20 sources) End: 03-12-2015 take 1 tablet by mouth three times daily GARCINIA CAMBOGIA-CHROMIUM, [id number] (Oral Tablet) 1 tab tid (500-200 MG-MCG) End : 12-Mar-2015 Discontinued Glucosamine Chondr 500 Complex Oral Capsule (14 sources) Glucosamine Ramy dr 500 Complex Oral Capsule Active Glucosamine Chondroitin Complx Oral Capsule (20 sources) take 2 capsules by mouth once daily Glucosamine Chondroitin Complx Oral Capsule 2 daily Active Comments: 1500glu 1103 chondro Comment on above: 1500glu 1103 chondro hydrocortisone acetate 25 mg rectal suppository (20 sources) Corticosteroid Start: 08-24-2014 End: 03-27-2016 ANUSOL-HC, 25MG (Rectal Suppository) 1 (one) Suppository Suppository qhs prn for 0 days Quantity: 30 {Suppository} Refills: 0 Ordered: 27-Mar-2016 Josefa Reinoso RN Start : 24-Aug-2014 End : 27-Mar-2016 Inactive meloxicam 15 mg oral tablet (20 sources) Nonsteroidal Anti-inflammatory Drug Start: 11-17-2015 End: 03-27-2016 take 1 tablet by mouth once daily at mealtime MELOXICAM, 15MG (Oral Tablet) 1 (one) Tablet Tablet qd for 0 days Quantity: 30 {Tablet} Refills: 1 Ordered: 27-Mar-2016 Josefa Reinoso RN Start : 17-Nov-2015 End : 27-Mar-2016 Inactive Comments: take with food Comment on above: take with food Mens 50+ Advanced Oral Capsule (20 sources) take 1 capsule by mouth once daily Mens 50+ Advanced Oral Capsule 1 daily Active multivitamin (20 sources) End: 07-06-2014 take 1 tablet by mouth once daily MULTIVITAMIN (PO Tab) 1 tab qd End : 06-Jul-2014 Discontinued Osteo Bi-Flex Adv Joint Shield (4 sources) End: 07-06-2014 take 1 tablet by mouth once daily OSTEO BI-FLEX ADV JOINT SHIELD (Oral Tablet) 1 tab qd End : 06-Jul-2014 Discontinued OSTEO BI-FLEX ADV JOINT SHIELD (Oral Tablet) (20 sources) End: 07-06-2014 take 1 tablet by mouth once daily OSTEO BI-FLEX ADV JOINT SHIELD (Oral Tablet) 1 tab qd End : 06-Jul-2014 Discontinued Potassium (20 sources) Potassium daily Active predniSONE 20 mg oral tablet (20 sources) Start: 12-22-2011 End: 12-25-2011 take 1 tablet by mouth once daily at mealtime PREDNISONE, 20MG (Oral Tablet) 1 Tablet daily for 3 days Quantity: 3 {Tablet} Refills: 0 Ordered: 22-Dec-2011 Josefina Meraz Start : 22-Dec-2011 End : 25-Dec-2011 Inactive Comments: with food Comment on above: with food Replenex (20 sources) End: 11-17-2015 Replenex 1 tab tid End : 17-Nov-2015 Discontinued Comments: joint health vitamin Comment on above: joint health vitamin rosuvastatin calcium 10 mg oral tablet (20 sources) HMG-CoA Reductase Inhibitor Start: 11-17-2019 End: 08-24-2020 take 1 tablet by mouth once daily Crestor 10 MG Oral Tablet 1 (one) Tablet qd for 90 days Quantity: 90 {Tablet} Refills: 1 Ordered: 24-Aug-2020 Charlie Dhillon LPN Start : 17-Nov-2019 End : 24-Aug-2020 Inactive tiZANidine 4 mg oral tablet (20 sources) Central alpha-2 Adrenergic Agonist Start: 10-01-2018 End: 11-12-2019 take 1 tablet by mouth twice daily as needed for headache tiZANidine HCl 4 MG Oral Tablet 1 (one) Tablet bid prn muscle tension headache for 0 days Quantity: 40 {Tablet} Refills: 0 Ordered: 12-Nov-2019 Licha Nur CMA Start : 01-Oct-2018 End : 12-Nov-2019 Inactive triamcinolone acetonide 1 mg/ml topical cream (20 sources) Corticosteroid Start: 06-24-2013 End: 06-24-2013 TRIAMCINOLONE ACETONIDE, 0.1% (External Cream) 1 Cream bid for 0 days Quantity: 1 {Cream} Refills: 0 Ordered: 24-Jun-2013 Bonnie Torres DO Start : 24-Jun-2013 End : 24-Jun-2013 Discontinued Vitality (20 sources) End: 11-17-2015 Vitality 1 tab bid End : 17-Nov-2015 Discontinued Comments: Mtv Comment on above: Mtv Vitamin D 58497 UNIT Oral Capsule (19 sources) take 1 capsule by mouth once daily Vitamin D 85362 UNIT Oral Capsule 1 daily (39327 U) Active Problems Active Problems Problem Classification Problem Date Documented Date Episodic/Chronic Abdominal pain (20 sources) Right lower quadrant pain; Translations: [Abdominal pain, acute, right lower quadrant] Resolved: 3 08-30-2015 Episodic Comment on above: get scope Allergic reactions (20 sources) Contact dermatitis and other eczema due to drugs and medicines in contact with skin; Translations: [DERMATITIS, CONTACT, D/T TOPICAL DRUGS/MEDS] Resolved: 3 08-03-2015 Episodic Comment on above: likely from neospori n to site of burn non healing will try prednisone po short term Chronic obstructive pulmonary disease and bronchiectasis (20 sources) Chronic obstructive lung disease; Translations: [Chronic obstructive pulmonary disease] 08-01-2017 Chronic Comment on above: followed adn asx carias snt want meds yetquit smoking 20 yrs ago -- long history of smoking prior to that in [employer] - 25 histroy of 1pack a day clinically asxfollow ed adn asx doesnt want meds yetquit smoking 20 yrs ago -- long history of smoking prior to that in [employer] - 25 histroy of 1pack a day Diabetes mellitus without complication (20 sources) Impaired fasting glucose; Translations: [Impaired fasting glycaemia] 08-01-2017 Episodic Comment on above: better betterHAIC normal fo r >1yr now HAIC normal for >1yr now Disorders of lipid metabolism (20 sources) Hypercholesterolemia; Translations: [Hypercholesterolemia] 08-24-2020 Chronic Esophageal disorders (20 sources) Gastroesophageal reflux disease; Translations: [GERD (gastroesophageal reflux disease)] 08-01-2017 Chronic Comment on above: stable on rx Genitourinary symptoms and ill-defined conditions (20 sources) Increased frequency of urination; Translations: [Urinary frequency] 04-06-2021 Episodic Headache; including migraine (20 sources) Muscular headache ; Translations: [Muscle tension headache] 10-01-2018 Chronic Hemorrhoids (20 sources) Hemorrhoids; Translations: [Hemorrhoids, unspecified hemorrhoid type] Resolved: 8 08-01-2017 Episodic Malaise and fatigue (20 sources) Fatigue; Translations: [Fatigue, unspecified type] 10-01-2018 Episodic Nonspecific chest pain (20 sources) Chest pain; Translations: [Chest pain] Resolved: 3 08-03-2015 Episodic Nutritional deficiencies (20 sources) Vitamin D deficiency; Translations: [Vitamin D deficiency] 08-24-2020 Chronic Open wounds of extremities (20 sources) Multiple and unspecified open wound of upper limb, complicated; Translations: [Arm/Upper Limb] Resolved: 3 08-03-2015 Episodic Other circulatory disease (20 sources) Elevated blood-pressure reading without diagnosis of hypertension; Translations: [Elevated blood-pressure reading without diagnosis of hypertension] Resolved: 6 03-27-2016 Episodic Comment on above: better with diet and ex Other circulatory disease (20 sources) Other specified symptoms and signs involving the circulatory and respiratory systems; Translations: [Suspected SARS (severe acute respiratory syndrome)] 08-25-2020 Episodic Comment on above: Day #4, had fever UR I symptoms, 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 Other connective tissue disease (20 sources) Plantar fasciitis; Translations: [Plantar fasciitis] Resolved: 6 03-27-2016 Episodic Other connective tissue disease (12 sources) Trigger finger; Translations: [Trigger finger] 01-31-2021 Episodic Other connective tissue disease (20 sources) Cramp in lower limb; Translations: [Leg cramps] 04-06-2021 Episodic Other connective tissue disease (20 sources) Triggering of digit; Translations: [Trigger finger] 01-23-2022 Episodic Comment on above: middle finger Right hand Other hereditary and degenerative nervous system conditions (20 sources) Restless legs; Translations: [Restless leg syndrome] Onset: 4 08-01-2017 Chronic Comment on above: stable Other inflammatory condition of skin (20 sources) Itching of skin; Translations: [Pruritus, unspecified] Resolved: 6 03-27-2016 Episodic Other inflammatory condition of skin (20 sources) Unspecified pruritic disorder; Translations: [Pruritus, unspecified] Episodic Other lower respiratory disease (20 sources) Apnea; Translations: [Apnea] 08-01-2017 Episodic Other nervous system disorders (2 sources) Neuropathy; Translations: [Polyneuropathy, unspecified] 09-23-2024 Chronic Other non-traumatic joint disorders (20 sources) Pain in right shoulder; Translations: [Chronic pain of right upper limb] 08-01-2017 Episodic Comment on above: slap lesions and s ees ortho - dr stephen PT / cortisone injections etc nad no surgical requirement Other non-traumatic joint disorders (20 sources) Pain in wrist; Translations: [Wrist pain, acute, right] Resolved: 6 03-27-2016 Episodic Other non-traumatic joint disorders (20 sources) Shoulder pain; Translations: [Left shoulder pain, unspecified chronicity] 11-25-2020 Episodic Other non-traumatic joint disorders (4 sources) Pain in left shoulder; Translations: [Left shoulder pain, unspecified chronicity] 04-06-2021 Episodic Other nutritional; endocrine; and metabolic disorders (19 sources) Body mass index 25-29 - overweight; Translations: [BMI 28.0-28.9,adult] 08-01-2017 Chronic Other nutritional; endocrine; and metabolic disorders (20 sources) Body mass index 25-29 - overweight; Translations: [BMI 28.0-28.9,adult] 01-31-2021 Episodic Other nutritional; endocrine; and metabolic disorders (20 sources) Overweight in adulthood with body mass index of 25 or more but less than 30; Translations: [BMI 28.0-28.9,adult] 01-23-2022 Episodic Other screening for suspected conditions (not mental disorders or infectious disease) (20 sources) Imaging of thorax abnormal; Translations: [Abnormal chest x-ray] Resolved: 8 10-01-2018 Chronic Comment on above: [place] [employer] [place] of scar-- follow up once yearly- last one 11/30 Other skin disorders (20 sources) Eruption; Translations: [Rash] Resolved: 3 08-03-2015 Episodic Comment on above: really llok like con tact dermatitis think related to bandaid and neosporin. will use start steriod cream told what infection barry like Other skin disorders (20 sources) Actinic keratosis; Translations: [AK (actinic keratosis)] Resolved: 8 08-01-2017 Episodic Comment on above: left thigh Residual codes; unclassified (20 sources) Obstructive sleep apnea of adult; Translations: [Obstructive sleep apnea, adult] 08-01-2017 Chronic Comment on above: wears cpap mask neuro in [place] Residual codes; unclassified (20 sources) Influenza vaccination declined; Translations: [Influenza vaccination declined (Renamed from Refused influenza vaccine)] 01-31-2021 Episodic Residual codes; unclassified (20 sources) Non-smoker; Translations: [Nonsmoker] 01-31-2021 Episodic Spondylosis; intervertebral disc disorders; other back problems (20 sources) Low back pain; Translations: [Thoracic back pain] Resolved: 6 03-27-2016 Episodic Unclassified (20 sources) Obstructive sleep apnea syndrome; Translations: [Obstructive sleep apnea of adult] 08-01-2017 Chronic Comment on above: wears cpap mask Unclassified (20 sources) Wrist pain, acute, right Unclassified (20 sources) Chronic right shoulder pain Unclassified (20 sources) Abnormal chest x-ray Unclassified (20 sources) Unclassified (20 sources) Obstructive sleep apnea, adult Unclassified (20 sources) Restless leg syndrome Unclassified (20 sources) Elevated Blood Pressure without diagnosis of Hypertension (796.2) Unclassified (20 sources) AK (actinic keratosis) Unclassified (20 sources) Screening for prostate cancer; Translations: [Screening status] 08-01-2017 Unclassified (20 sources) Influenza vaccination declined (Renamed from Refused influenza vaccine); Translations: [Influenza vaccination declined] 08-01-2017 Unclassified (20 sources) SCREENING FOR CANCER OF THE PROSTATE (V76.44) Unclassified (20 sources) Nonsmoker; Translations: [Non-smoker] 08-01-2017 Unclassified (20 sources) BMI 28.0-28.9,adult Unclassified (20 sources) Fatigue, unspecified type Unclassified (20 sources) Trigger finger Unclassified (14 sources) Left shoulder pain, unspecified chronicity Unclassified (7 sources) Leg cramps Unclassified (7 sources) Shoulder pain, left Unclassified (7 sources) Abnormal CXR Unclassified (6 sources) Hypercholesteremia Unclassified (1 source) Colon cancer screening (Renamed from Encounter for screening for malignant neoplasm of colon) Unclassified (1 source) Other intervertebral disc degeneration, lumbosacral region without mention of lumbar back pain or lower extremity pain; Translations: [Other intervertebral disc degeneration, lumbosacral region without mention of lumbar back pain or lower extremity pain] Onset: 5 Viral infection (20 sources) Plantar wart of right foot; Translations: [Plantar wart of right foot] 01-31-2021 Episodic Past or Other Problems Problem Classification Problem Date Documented Date Episodic/Chronic Chronic obstructive pulmonary disease and bronchiectasis (18 sources) Chronic obstructive pulmonary disease and bronchiectasis Headache, including migraine (20 sources) Headache, including migraine Other connective tissue disease (4 sources) Trigger finger; Translations: [Trigger finger] 08-24-2020 Other inflammatory condition of skin (1 source) Pruritus, unspecified; Translations: [Pruritus, unspecified] Resolved: 03-27-2016 10-01-2018 Episodic Other nervous system disorders (20 sources) Paresthesia; Translations: [Paresthesias] Onset: 11-06-2023 Resolved: 03-27-2016 03-27-2016 Episodic Unclassified (20 sources) Imaging of thorax abnormal; Translations: [Screening status] Onset: 01-10-2025 Resolved: 10-01-2018 08-01-2017 Episodic Comment on above: [place] of [employer] [place] lots of scar-- follow up once yearly- last one 11/30 Unclassified (20 sources) Paresthesias Unclassified (20 sources) Unspecified Diagnosis Resolved: 11-12-2019 08-01-2017 Unclassified (20 sources) Plantar Fascititis (728.71) Unclassified (20 sources) Back pain, thoracic Unclassified (20 sources) screen Resolved: 08-03-2015 08-03-2015 Unclassified (20 sources) screening Resolved: 06-24-2013 06-24-2013 Unclassified (20 sources) Arm/Upper Limb (884.1) Unclassified (20 sources) DERMATITIS, CONTACT, D/T TOPICAL DRUGS/MEDS (692.3) Unclassified (20 sources) Rash (782.1) Unclassified (20 sources) Abdominal Pain,RLQ (789.03) Unclassified (20 sources) Abnormal Chest X-Ray (793.99) Unclassified (8 sources) Influenza vaccination declined; Translations: [Influenza vaccination declined (Renamed from Refused influenza vaccine)] 08-01-2017 Unclassified (7 sources) Non-smoker; Translations: [Nonsmoker] 08-01-2017 Unclassified (8 sources) Screening status; Translations: [Screening for prostate cancer] 08-01-2017 Unclassified (5 sources) Chronic pain of right upper limb; Translations: [Chronic right shoulder pain] 10-01-2018 Comment on above: slap lesions and s ees ortho - dr camid PT / cortisone injections etc nad no surgical requirement Unclassified (20 sources) Suspected SARS Unclassified (13 sources) Plantar wart of right foot Viral infection (20 sources) Disease caused by 2019-nCoV Results Test Name Value Interpretation Reference Range Facility PSA, total screeningOrdered By: Laura Ha on 01-05-2025 Prostate Specific Antigen Screen 0.21 ng/mL 0.02-4.[address] [facility] Comment on above: This test was perfor med using the [employer] tPSA method. Measured values of a patient sample can vary depending on the testing procedure used. PSA values determined on patient samples by different testing procedures cannot be used interchangeably. If there is a change in PSA assays while monitoring therapy, sequential testing should be performed to confirm baseline values. PSA,Total - Annual Screenon 01-05-2025 PSA,TOT SCREEN 0.21 ng/mL Normal 0.02-4.[address] [facility] Comment on above: Result Comment: This test was performed using the [employer] tPSA method. Measured values of a patient??sample can vary depending on the testing procedure used. PSA values determined on patient samples by different testing procedures cannot be used interchangeably. If there is a change in PSA assays while monitoring therapy, sequential testing should be performed to confirm baseline values. Performed By: #### L [phone] #### [facility] [address] [place], [address] L/S Spine Min 4 Viewson 12-13 L/S Spine Min 4 Views [facility] [address] [place] [address] L/S Spine Min 4 Views MR#: [id number] Acct: [id number] Name: ITA EMERY Rep #: [id number] : 1960 M 64 From: Derick Mckenzie MD PCP: Dr. Heather Howe, DO Status: [facility] Study: L/S Spine Min 4 Views Date of Exam: 12/29/24 Exam# [id number] Ordering Dr: Carlos Santo MD PROCEDURE: L/S SPINE WITH MOBILE C-ARM IN THE OPERATING ROOM REASON FOR EXAM: LT SIDE LUMBAR RADIOFREQUENCY ABLATION L4 L5 S1 TECHNIQUE: EIGHT (8) images of the lumbar spine were obtained in the operating room with mobile C-arm. COMPARISON: None. FINDINGS: Multiple images were obtained with the mobile C-arm with radiofrequency ablation leads in place at different stages of the procedure. For further detail please see operative report. Fluoroscopy: 25.7 sec Dose: 10.25 mGy RAD/L/S Spine Min 4 Views IMPRESSION: Multiple imaging obtained during radiofrequency ablation of L4 through S1. Reading Location: [facility] CC: Dr. Carlos Santo MD; Dr. Heather Howe DO Roller Engraver: Signed [facility] MR/POSTOP.ANEon 12-29-2024 MR/POSTOP.[facility] Medical Records Department [address] [place] [address] Anesthesia Postop Eval I 12/29/24 08 MR#: [id number] Acct: [id number] Name: ALBINAITACATARINO RICHARDSON Rep #: [id number] : 1960 64 From: Latanya Granda CRNA PCP: Dr. Heather Howe, DO Status:REG [facility] Y Race: C Location: [place] [address] Anesthesia: Postop Eval I Current Vital Signs Temperature: 97 F Pulse Rate: 78 Blood Pressure: 132/93 Respiratory Rate: 14 Pulse Ox: 98 Assessment Airway patent: Yes Spontaneous unlabored respirations: Yes Mental status: Awake nausea: No Vomiting: No Anesthesia Complication: No Fluid Hydration Crystalloid volume administer (ml): 10 Total IV fluid infused: 10 Progress Note Anesthesia document: Postop Eval 1 completed: Yes 12/29/24826 Date Latanya Granda COMMUNICATIONS CONTROLLER Cosigner Signature: Date CC: Signed [facility] MR/[id number] 12-29-2024 MR/POSTOPAN2 [facility] Medical Records Department [address] [place] [address] Anesthesia Postop Eval II 12/29/241001 MR#: [id number] Acct: [id number] Name: ITA EMERY Rep #: [id number] : 1960 64 From: Alysha Ventura PCP: Dr. Heather Howe, DO Status:DEP [facility] Y Race: C Location: [facility] Anesthesia Postop Eval I Sum Postop Eval Completion status Anesthesia document: Postop Eval 1 completed: Yes Anesthesia Postop Eval I Summary Anesthesia Postop Eval I Summary: Anesthesia Postop Eval I: Assessment Summary Airway patent Yes 12/29/24 08:27 COMMUNICATIONS CONTROLLER.LMIL Spontaneous unlabored Yes 12/29/24 08:27 COMMUNICATIONS CONTROLLER.LMIL respirations Mental status Awake 12/29/24 08:27 COMMUNICATIONS CONTROLLER.LMIL nausea No 12/29/24 08:27 COMMUNICATIONS CONTROLLER.LMIL Vomiting No 12/29/24 08:27 COMMUNICATIONS CONTROLLER.LMIL Anesthesia Postop Eval I: Fluid Summary Crystalloid volume administer 10 12/29/24 08:27 COMMUNICATIONS CONTROLLER.LMIL (ml) Colloids volume administered ( ml) Blood Product volume administered (ml) Total IV fluid infused 10 12/29/24 08:27 COMMUNICATIONS CONTROLLER.LMIL Anesthesia Postop Eval I: Summary Notes Anesthesia Complication No 12/29/24 08:27 COMMUNICATIONS CONTROLLER.LMIL Anesthesia Complication Comment: Post-operative progress note Anesthesia: Postop Eval II Evaluation Mental status: Awake Pain Level: 2 nausea: No Vomiting: No 12/29/24 1003 Date Alysha Gunderson Signature: Date CC: Signed Normal [facility] Operative Reporton 5 Operative Report [facility] Medical Records Department [address] [place] [address] Operative Report 12/29/24 0820 MR#: [id number] Acct: [id number] Name: AVEDenaITA Rep #: [id number] : 1960 64 From: Carlos Santo MD PCP: Dr. Heather Howe, DO Status:REG [facility] Location: [place] [address] Operative Report (Standard) Operative Information Date of Procedure: 12/29/24 Pre-Operative Diagnosis: Lumbosacral spondylosis, lumbosacral degenerative disc disease, lumbar facet arthropathy Post-Operative Diagnosis: Lumbosacral spondylosis, lumbosacral degenerative disc disease, lumbar facet arthropathy Surgery/Procedure Performed: Left-sided lumbar radiofrequency ablation of the medial branch at L4, L5, S1 under fluoroscopy alterations workroom clerk: No Type of Anesthesia: Local MAC RN Documented Start/Stop Times: Operation Date: 12/29/24 08:00 Case Time Into Pre-Op 12/29/24 06:41 Anesthesia Start 12/29/24 08:03 Into Room 12/29/24 08:03 Procedure Start 12/29/24 08:09 Procedure Start Time: 08:21 Procedure Stop Time: 08:21 Select all DRAINS/GRAFTS/IMPLANTS that apply: None Estimated Blood Loss: 1 Specimen collected: No Description of surgery: ANESTHESIA: MAC. BLOOD LOSS: Minimal. COMPLICATIONS: None. DESCRIPTION OF PROCEDURE: History and physical of today was reviewed. Risks and benefits of the procedure were explained. The patient understood and agreed to proceed. Informed consent was obtained. IV inserted per routine protocol. The patient was taken to the operating room and placed in the prone position with a pillow positioned underneath the abdomen. The left side of her lower back was prepped and draped in a sterile fashion using iodine x3. Under fluoroscopy guidance in an oblique view, the L3 through S1 vertebral bodies were visualized. The skin and subcutaneous tissue was anesthetized with approximately 10 mL of 1% lidocaine using a 25-gauge regular needle. Under direct visualization on fluoroscopy at approximately 25-degree angle, starting on the left L3, ending on the left S1, passing through the L4 and L5, using a 20-gauge 15-cm with a 10-mm curved active-tip radiofrequency ablation needle, the needle was passed through the skin. The tip of the needle was maneuvered and directed towards the superior medial gutter of the transverse process at the vicinity of the medial branch. Once the tip of the needle was in contact with the bone, the needle was pulled approximately 2 mm off the bone. The stylette of each needle was then removed. After negative aspiration of blood or CSF and confirmation on AP, oblique as well as lateral view, the radiofrequency ablation probe was then inserted at each level. Impedance was then recorded at L3 to be 287 ohm, at L4 to be 297 ohm, at L5 to be 289 ohm, and at S1 to be 372 ohm. Motor evoked potential was then initiated to 1.5 volt without any motor response at each corresponding level. The probe was then removed intact and a total of 6 mL of preservative-free 1% lidocaine was injected in divided doses between those four levels after negative aspiration of blood or CSF. The radiofrequency ablation probe was then reinserted. After confirmation on AP, oblique as well as lateral view, radiofrequency ablation was then initiated to 80 degree Celsius for 90 second at each level. Once concluded, the probe was then removed intact. A total of 6 mL of preservative-free 0.25% Marcaine with 40 mg of Depo-Medrol was injected in divided doses between those four levels. The needles were then removed intact. The patient experienced no sign or symptoms of intrathecal or intravascular injection. The patient experienced no paresthesia. The procedure was completed without any apparent difficulty or any complications. The patient appeared to tolerate it well. Sensory as well as motor exam was unchanged from prior to the procedure. ASSESSMENT AND PLAN: This is a 64-year-old male with lumbosacral spondylosis, lumbosacral degenerative disc disease, lumbar facet arthropathy status post left-sided lumbar radiofrequency ablation of the medial branch at L4-S1, patient will continue with his current medications, patient will follow-up in approximately 1 to 2 weeks for reevaluation. Surgical Findings: 1 Complications Complications: No Admit VTE Documentation VTE Present on Admission: No VTE Pharm Prophylaxis ordered?: No 12/29/24 1375 Cosigner Signature (if applicable): CC: Dr. Carlos Santo MD; Dr. Heather Howe DO Signed Normal [facility] No Panel InformationOrdered By: Johann Meyers on 12-18-2023 Prostate Specific Antigen Screen 0.39 ng/mL 0.00-4.[address] [facility] Comment on above: This test was perfor med using the TPSA assay method for the[employer] chemistry system. Values obtained with differentassay methods cannot be used interchangably.When changing PSA assays in the course of monitoring apatient, additional sequential testing should be carriedout to confirm baseline values. 24 hour urine alpha 2 globul in/total protein ratio by electrophoresis (mass fraction)Ordered By: Mariah Esteban on 09-26-2023 Alpha 2 globulin Elph (24H U) [Mass fraction] 17.8 % . [facility] 24 hour urine beta globulin/ total protein ratio by electrophoresis (mass fraction)Ordered By: Mariah Esteban on 09-26-2023 Beta globulin Elph (24H U) [Mass fraction] 22.5 % . [facility] 24 hour urine gamma globulin /total protein ratio by electrophoresis (mass fraction)Ordered By: Mariah Esteban on 09-26-2023 Gamma globulin Elph (24H U) [Mass fraction] 11.8 % . [facility] Albumin Elph [Mass/Vol]Order ed By: Mariah Esteban on 09-26-2023 Albumin [Mass/Vol] 3.9 g/dL 2.9-4.4 [facility] Basophil percentageOrdered B y: Mariah Esteban on 09-26-2023 Basophil percentage 2 ug/L 0-9 [facility] Comment on above: Detection Limit = 1 Bilirubin [Mass/Vol] 0.60 mg/dL 0.20-1.00 [facility] Comment on above: For patients on eltr ombopag therapy, use of Dimension [place] TBIL is not recommended. Chloride [Moles/Vol] 104 mmol/L 98-107 [facility] Glucose [Mass/Vol] 96 mg/dL 74-106 [facility] Potassium [Moles/Vol] 4.0 mmol/L 3.5-5.1 [facility] Protein [Mass/Vol] 7.1 g/dL 6.4-8.2 [facility] Sodium [Moles/Vol] 138 mmol/L 136-145 [facility] WBC (Bld) [#/Vol] 5.9 10*3/uL 4.4-11.0 [facility] Blood erythrocytes count (nu mber/volume)Ordered By: Mariah Esteban on 09-26-2023 RBC (Bld) [#/Vol] 5.16 10*6/uL 4.6-6.2 [facility] Blood hemoglobin measurement (mass/volume)Ordered By: Mariah Esteban on 09-26-2023 Hemoglobin (Bld) [Mass/Vol] 14.8 g/dL 13.0-16.[address] [facility] Blood mercury measurement (m ass/volume)Ordered By: Mariah Esteban on 09-26-2023 Mercury (Bld) [Mass/Vol] < 1.0 ug/L 0.0-14.[address] [facility] Comment on above: Environmental Exposu re: <15.0 Occupational Exposure: YANICK - Inorganic Mercury: 15.0 Detection Limit = 1.0Performed at: [facility] [id number] Director: Crescencio Fisher PhD, Phone: [phone] at: [facility] [id number] Director: Oswaldo Feldman MD, Phone: [phone] Blood platelet mean volumeOr dered By: Mariah Esteban on 09-26-2023 Platelet mean volume (Bld) [Entitic vol] 9.5 fL 6.2-12.[address] [facility] Determination of erythrocyte mean corpuscular volume (MCV)Ordered By: Mariah Esteban on 09-26-2023 MCV (RBC) [Entitic vol] 89.7 fL 80-94 [facility] Erythrocyte sedimentation ra teOrdered By: Mariah Esteban on 09-26-2023 ESR (Bld) [Velocity] mm/h 0-20 [facility] Hematocrit Auto (Bld) [Volum e fraction]Ordered By: Mariah Esteban on 09-26-2023 Hematocrit (Bld) [Volume fraction] 46.3 % 40-[address] [facility] Interpretation of serum or p lasma protein pattern by immunofixation (narrative resultOrdered By: Mariah Esteban on 09-26-2023 Protein Fractions Immunofixation Missael [Interp] Not Observed g/dL Not Observed [facility] Laboratory - Chemistry and C hemistry - challengeOrdered By: Mariah Esteban on 09-26-2023 ALP [Catalytic activity/Vol] 68 U/L 45-[address] [facility] ALT [Catalytic activity/Vol] 39 U/L 16-[address] [facility] CO2 [Moles/Vol] 31.0 mmol/L 21.0-32.[address] [facility] Cobalamin (Vitamin B12) [Mass/Vol] 343 pg/mL 211-[address] [facility] Globulin (S) [Mass/Vol] 3.3 g/dL 2.2-4.2 [facility] Urea nitrogen/Creatinine [Mass ratio] 13.1 mg/mg 10-[address] [facility] Laboratory - Hematology and Cell countsOrdered By: Mariah Esteban on 09-26-2023 Erythrocyte distribution width (RBC) [Entitic vol] 40.5 fL 35.1-43.[address] [facility] Erythrocyte distribution width (RBC) [Ratio] 12.2 % 11.6-14.[address] [facility] MCH (RBC) [Entitic mass] 28.7 pg 27.0-32.[address] [facility] MCHC Auto (RBC) [Mass/Vol]Or dered By: Mariah Esteban on 09-26-2023 MCHC (RBC) [Mass/Vol] 32.0 g/dL 32-36 [facility] No Panel InformationOrdered By: Mariah Esteban on 09-26-2023 Addendum Document Comment . [facility] Comment on above: Protein electrophore sis scan will follow via computer,mail, or preschool assistant principal delivery. Estimated GFR (MDRD) Amer 90 mL/min >[address] [facility] Comment on above: GFR Calc Estimated GFR (MDRD) Non-Af Amer 74 mL/min >[address] [facility] Comment on above: Non- GFR Calc Lead < 1.0 ug/dL 0.0-3.[address] [facility] Comment on above: Testing performed by Inductively coupled plasma/MassSpectrometry. Environmental Exposure: WHO Recommendation <5.0 Occupational Exposure: OSHA Lead Std 40.0 YANICK 30.0 Detection Limit = 1.0 Thyroid Stimulating Hormone (TSH) 1.23 uIU/mL 0.358-3.[address] [facility] Urine Immunofixation PEP Note Comment . [facility] Comment on above: Protein electrophore sis scan will follow via computer,mail, or preschool assistant principal delivery. Platelets bldOrdered By: Rhonda Esteban on 09-26-2023 Platelets (Bld) [#/Vol] 302 10*3/uL 150-[address] [facility] Serum nadax-9-yicjrwtc measu rement by electrophoresisOrdered By: Mariah Esteban on 09-26-2023 Alpha 1 globulin Elph [Mass/Vol] 0.2 g/dL 0.0-0.[address] [facility] Alpha 1 globulin Elph [Mass/Vol] 0.6 g/dL 0.4-1.[address] [facility] Serum globulin measurement ( mass/volume)Ordered By: Mariah Esteban on 09-26-2023 Globulin (S) [Mass/Vol] 2.6 g/dL 2.2-3.9 [facility] Serum or plasma C reactive p rotein measurement (mass/volume)Ordered By: Mariah Esteban on 09-26-2023 CRP [Mass/Vol] mg/L 0.0-3.[address] [facility] Comment on above: C-Reactive Protein ( CRP) provides useful information for thediagnosis, therapy and monitoring of inflammatory processesand associated diseases. For the evaluation of Relative Riskfor Cardiovascular Disease, a High Sensitivity CRP (HSCRP)should be ordered. Serum or plasma IgA measurem ent (mass/volume)Ordered By: Mariah Esteban on 09-26-2023 IgA [Mass/Vol] 205 mg/dL 61-[address] [facility] Serum or plasma IgG measurem ent (mass/volume)Ordered By: Mariah Esteban on 09-26-2023 IgG [Mass/Vol] 919 mg/dL 603-[address] [facility] Serum or plasma IgM measurem ent (mass/volume)Ordered By: Mariah Esteban on 09-26-2023 IgM [Mass/Vol] 103 mg/dL 20-[address] [facility] Serum or plasma albumin kiet urement (mass/volume)Ordered By: Mariah Esteban on 09-26-2023 Albumin [Mass/Vol] 3.8 g/dL 3.2-5.0 [facility] Serum or plasma albumin/glob ulin mass ratioOrdered By: Mariah Esteban on 09-26-2023 Albumin/Globulin [Mass ratio] 1.2 {ratio} 0.9-2.[address] [facility] Serum or plasma beta globuli n measurement by electrophoresis (mass/volume)Ordered By: Mariah Esteban on 09-26-2023 Beta globulin Elph [Mass/Vol] 0.9 g/dL 0.7-1.[address] [facility] Serum or plasma calcium kiet urement (mass/volume)Ordered By: Mariah Esteban on 09-26-2023 Calcium [Mass/Vol] 8.8 mg/dL 8.5-10.1 [facility] Serum or plasma creatinine m easurement (mass/volume)Ordered By: Mariah Esteban on 09-26-2023 Creatinine [Mass/Vol] 1.07 mg/dL 0.70-1.30 [facility] Comment on above: The validity of the calculated GFR & GFRAA in patients over 70 years has not been determined. Clinical correlation is essential. Serum or plasma gamma globul in measurement by electrophoresis (mass/volume)Ordered By: Mariah Esteban on 09-26-2023 Gamma globulin Elph [Mass/Vol] 0.9 g/dL 0.4-1.[address] [facility] Serum or plasma immunoelectr ophoresis interpretation (nominal result)Ordered By: Mariah Esteban on 09-26-2023 Interpretation IEP [Interp] Comment . [facility] Comment on above: No monoclonality det ected. Serum or plasma urea nitroge n measurement (mass/volume)Ordered By: Mariah Esteban on 09-26-2023 Urea nitrogen [Mass/Vol] 14 mg/dL 7-[address] [facility] Thin prep Papanicolaou smear with manual screeningOrdered By: Mariah Esteban on 09-26-2023 Thin prep Papanicolaou smear with manual screening 17 U/L 15-[address] [facility] Thin prep Papanicolaou smear with manual screening 3 5-[address] [facility] Thin prep Papanicolaou smear with manual screening 1.6 0.7-1.[address] [facility] Total protein bloodOrdered B y: Mariah Esteban on 09-26-2023 Protein [Mass/Vol] 6.5 g/dL 6.0-8.5 [facility] Urine albumin/total protein mass ratio by electrophoresisOrdered By: Mariah Esteban on 09-26-2023 Albumin Elph (U) [Mass fraction] 37.5 % . [facility] Urine alpha 1 globulin/total protein ratio by electrophoresis (mass fraction)Ordered By: Mariah Esteban on 09-26-2023 Alpha 1 globulin Elph (U) [Mass fraction] 10.3 % . [facility] Urine monoclonal protein/tot al protein mass ratio by electrophoresisOrdered By: Mariah Esteban on 09-26-2023 Protein.monoclonal Elph (U) [Mass fraction] See comment [facility] Comment on above: Result: Not Observed Urine protein measurement (m ass/volume)Ordered By: Mariah Esteban on 09-26-2023 Protein (U) [Mass/Vol] 10.1 mg/dL Not Estab. [facility] CALCIFIDIOL (36557) VIT D 25 Ordered By: Inspector Crystal on 01-29-2023 25-hydroxyvitamin D [Mass/Vol] 88.3 ng/mL Normal 30.0-100.0 [facility]; [facility] Work Phone: Comment on above: Vitamin D deficiency has been defined by the [place] of[place] and an Endocrine Society practice guideline as alevel of serum 25-OH vitamin D less than 20 ng/mL (1,2).The Endocrine Society went on to further define vitamin Dinsufficiency as a level between 21 and 29 ng/mL (2).1. IOM ([place] [employer] [place]). 2010. Dietary reference intakes for calcium and D. [place]: The National Academies Press.2. Abraham MF, Robert NC, Seamus JOYNER, et al. Evaluation, treatment, and prevention of vitamin D deficiency: an Endocrine Society clinical practice guideline. JCEM. 2010; 96(7):1911-30. PATIENT WAS FASTINGP ERFORMED BY: [employer] [place] [id number] CBC W/AUTO DIFF WBC (48994)O rdered By: Inspector Crystal on 01-29-2023 Basophils (Bld) [#/Vol] 0.1 10*3/uL Normal 0.0-0.2 [facility]; [facility] Work Phone: Comment on above: PATIENT WAS FASTINGP ERFORMED BY: [employer] [place] [id number] Basophils/100 WBC (Bld) 2 % Normal C [facility]; [facility] Work Phone: Comment on above: PATIENT WAS FASTINGP ERFORMED BY: BIANCA Lab[facility] SequeiraLdlzag66[address] RoadDublin [place] [id number] Eosinophils (Bld) [#/Vol] 0.3 10*3/uL Normal 0.0-0.4 [facility]; [facility] Work Phone: Comment on above: PATIENT WAS FASTINGP ERFORMED BY: [facility] Ijicim35[address] RoadDuin [place] [id number] Eosinophils/100 WBC (Bld) 6 % Normal [facility]; [facility] Work Phone: Comment on above: PATIENT WAS FASTINGP ERFORMED BY: BIANCA Maximinoco Zciyyx[address] [facility] [id number] Erythrocyte distribution width (RBC) [Ratio] 12.5 % Normal 11.6-15.4 [facility]; [facility] Work Phone: Comment on above: PATIENT WAS FASTINGP ERFORMED BY: BIANCA [facility] Nxbyoh[address] [facility] [id number] Hematocrit (Bld) [Volume fraction] 42.9 % Normal 37.5-51.0 [facility]; [facility] Work Phone: Comment on above: PATIENT WAS FASTINGP ERFORMED BY: BIANCA [facility] [id number] [facility] [id number] Hemoglobin (Bld) [Mass/Vol] 13.6 g/dL Normal 13.0-17.7 [facility]; [facility] Work Phone: Comment on above: PATIENT WAS FASTINGP ERFORMED BY: CB [facility] Zvlwbi1364 [address]blin [place] [id number] Immature granulocytes (Bld) [#/Vol] 0.0 10*3/uL Normal 0.0-0.1 [facility]; [facility] Work Phone: Comment on above: PATIENT WAS FASTINGP ERFORMED BY: BIANCA Rocío Sequeira6370 [facility] [id number] Immature granulocytes/100 WBC (Bld) 0 % Normal [facility]; [facility] Work Phone: Comment on above: PATIENT WAS FASTINGP ERFORMED BY: BIANCA Morganlin6370 [facility] [id number] Lymphocytes (Bld) [#/Vol] 1.0 10*3/uL Normal 0.7-3.1 [facility]; [facility] Work Phone: Comment on above: PATIENT WAS FASTINGP ERFORMED BY: [facility] Dwdklr1519 [facility] [id number] Lymphocytes/100 WBC (Bld) 20 % Normal [facility]; [facility] Work Phone: Comment on above: PATIENT WAS FASTINGP ERFORMED BY: [facility] [id number] [id number] MCH (RBC) [Entitic mass] 28.2 pg Normal 26.6-33.0 [facility]; [facility] Work Phone: Comment on above: PATIENT WAS FASTINGP ERFORMED BY: [facility] Yzdezk2427 [facility] [id number] MCHC (RBC) [Mass/Vol] 31.7 g/dL Normal 31.5-35.7 [facility] prehensive [facility]; [facility] Work Phone: Comment on above: PATIENT WAS FASTINGP ERFORMED BY: MaximinoHenry [facility]6370 [facility] [id number] MCV (RBC) [Entitic vol] 89 fL Normal 79-97 C [facility]; [facility] Work Phone: Comment on above: PATIENT WAS FASTINGP ERFORMED BY: [facility] Ssdaig5110 [facility] [id number] Monocytes (Bld) [#/Vol] 0.3 10*3/uL Normal 0.1-0.9 [facility]; [facility] Work Phone: Comment on above: PATIENT WAS FASTINGP ERFORMED BY: CB [facility] Jlhbom2204 [address]Dublin [place] [id number] Monocytes/100 WBC (Bld) 6 % Normal [facility]; [facility] Work Phone: Comment on above: PATIENT WAS FASTINGP ERFORMED BY: CB [facility] Lmjkfw2836 [address]Dublin [place] [id number] Neutrophils (Bld) [#/Vol] 3.2 10*3/uL Normal 1.4-7.0 [facility]; [facility] Work Phone: Comment on above: PATIENT WAS FASTINGP ERFORMED BY: CB [facility] Fuckso4250 [address] RoadDublin [place] [id number] Neutrophils/100 WBC (Bld) 66 % Normal [facility]; [facility] Work Phone: Comment on above: PATIENT WAS FASTINGP ERFORMED BY: CB [facility] [id number] [address] RoadDublin [place] [id number] Platelets (Bld) [#/Vol] 250 10*3/uL Normal 150-450 [facility]; [facility] Work Phone: Comment on above: PATIENT WAS FASTINGP ERFORMED BY: CB [facility] Zanosf5192 [address] RoadDublin [place] [id number] RBC (Bld) [#/Vol] 4.82 10*6/uL Normal 4.14-5.80 Compr [facility]; [facility] Work Phone: Comment on above: PATIENT WAS FASTINGP ERFORMED BY: CB [facility] Cfapfs[address]Dublin [place] [id number] WBC (Bld) [#/Vol] 4.9 10*3/uL Normal 3.4-10.8 Compre [facility]; [facility] Work Phone: Comment on above: PATIENT WAS FASTINGP ERFORMED BY: CB [facility] Yeywbi9696 [address]Dublin [place] [id number] HGB A1C ([id number])Ordered By: Annette ystem Collection Systems Technician on 01-29-2023 HbA1c (Bld) [Mass fraction] 5.6 % Normal 4.8-5.6 [facility]; [facility] Work Phone: Comment on above: . Prediabetes: 5.7 - 6.4 Diabetes: >6.4 Glycemic control for adults with diabetes: <7.0 PATIENT WAS FASTINGP ERFORMED BY: BIANCA [facility] Bokqrr4813 [address] RoadDublin [place] [id number] LIPID PANEL ([id number])Ordered B y: Inspector Crystal on 01-29-2023 Cholesterol [Mass/Vol] 197 mg/dL Normal 100-199 [facility]eren[facility]; [facility] Work Phone: Comment on above: PATIENT WAS FASTINGP ERFORMED BY: BIANCA [facility] Kxaugd2219 [address] RoadDublin [place] [id number] Cholesterol in HDL [Mass/Vol] 65 mg/dL Normal [facility]; [facility] Work Phone: Comment on above: PATIENT WAS FASTINGP ERFORMED BY: BIANCA [facility] Rsvphx[address] [facility]in [place] [id number] Triglyceride [Mass/Vol] 75 mg/dL Normal 0-[address] [facility] hospitalensive [facility]; [facility] Work Phone: Comment on above: PATIENT WAS FASTINGP ERFORMED BY: BIANCA [facility] Ignoqi[address] [facility] HospitalDublin [place] [id number] LIPID PANEL ([id number]) 14 mg/dL Normal 5-40 Compr ensive Internal Medicine; [facility] Work Phone: Comment on above: PATIENT WAS FASTINGP ERFORMED BY: [facility] Wtytkj[address] [facility] HospitalDublin [place] [id number] LIPID PANEL (55582) 118 mg/dL Abnormal 0-99 Compr ensive Internal Medicine; [facility] Work Phone: Comment on above: PATIENT WAS FASTINGP ERFORMED BY: BIANCA [facility] Zcoyhf[address] [facility] HospitalDublin [place] [id number] LIPID PANEL (74400) 1.8 {ratio} Normal 0.0-3.[address] [facility]ensive [facility]; [facility] Work Phone: Comment on above: LDL/HDL Ratio Men Wo men 1/2 Avg.Risk 1.0 1.5 Avg.Risk 3.6 3.2 2X Avg.Risk 6.2 5.0 3X Avg.Risk 8.0 6.1 PATIENT WAS FASTINGP ERFORMED BY: [facility] Thmkzr0302 [address] RoadDublin [place] [id number] METABOLIC PANEL, COMPREHENSI VE ([id number])Ordered By: Inspector Crystal on 01-29-2023 Albumin [Mass/Vol] 4.4 g/dL Normal 3.8-4.8 [facility]; [facility] Work Phone: Comment on above: PATIENT WAS FASTINGP ERFORMED BY: [facility] Jitjyx2198 [address] RoadDublin [place] [id number] Albumin/Globulin [Mass ratio] 2.0 {ratio} Normal 1.2-2.2 [facility]; [facility] Work Phone: Comment on above: PATIENT WAS FASTINGP ERFORMED BY: [facility] Gsmaus0518 [address] RoadDublin [place] [id number] ALP [Catalytic activity/Vol] 59 U/L Normal 44-121 [facility]; [facility] Work Phone: Comment on above: PATIENT WAS FASTINGP ERFORMED BY: [facility] Asajcw9774 [address] RoadDublin [place] [id number] ALT [Catalytic activity/Vol] 24 U/L Normal 0-44 [facility]; [facility] Work Phone: Comment on above: PATIENT WAS FASTINGP ERFORMED BY: [facility] Byatcv0676 [address] RoadDublin [place] [id number] AST [Catalytic activity/Vol] 17 U/L Normal 0-40 [facility]; [facility] Work Phone: Comment on above: PATIENT WAS FASTINGP ERFORMED BY: [facility] Rboulx1150 [address] RoadDublin [place] [id number] Bilirubin [Mass/Vol] 0.4 mg/dL Normal 0.0-1.2 [facility]; [facility] Work Phone: Comment on above: PATIENT WAS FASTINGP ERFORMED BY: BIANCA [facility] Qhhbji5323 [address] RoadDublin [place] [id number] Calcium [Mass/Vol] 9.3 mg/dL Normal 8.6-10.2 Compre [facility]ive [facility]; [facility] Work Phone: Comment on above: PATIENT WAS FASTINGP ERFORMED BY: CB [facility] Aquhwd2279 [address] RoadNovant Healthin [place] [id number] Chloride [Moles/Vol] 104 mmol/L Normal 96-106 Comp rehensive Internal Medicine; [facility] Work Phone: Comment on above: PATIENT WAS FASTINGP ERFORMED BY: [facility] Dukzew2750 [address] RoadCaroMont Regional Medical [facility] [id number] CO2 [Moles/Vol] 26 mmol/L Normal 20-29 Comprehen [facility]ale Internal [facility]; [facility] Work Phone: Comment on above: PATIENT WAS FASTINGP ERFORMED BY: [facility] Nfzwxr[address] [facility] [id number] Creatinine [Mass/Vol] 0.84 mg/dL Normal 0.76-1.27 Com prehensive Internal Medicine; [facility] Work Phone: Comment on above: PATIENT WAS FASTINGP ERFORMED BY: BIANCA [facility] Ycgkdb[address] [facility] [id number] GFR/1.73 sq M.predicted among non-blacks MDRD (S/P/Bld) [Vol rate/Area] 99 mL/min/{1.73_m2} Normal Comprehensiv e Internal Medicine; [facility] Work Phone: Comment on above: PATIENT WAS FASTINGP ERFORMED BY: BIANCA [facility] Fzhxtv8[address] [facility] Centerblin [place] [id number] Globulin (S) [Mass/Vol] 2.2 g/dL Normal 1.5-4.5 C omprehensive Internal Medicine; [facility] Work Phone: Comment on above: PATIENT WAS FASTINGP ERFORMED BY: [facility] Cknssm[address] [facility] [place] [id number] Glucose [Mass/Vol] 90 mg/dL Normal 70-99 [facility] Internal [facility]; [facility] Work Phone: Comment on above: PATIENT WAS FASTINGP ERFORMED BY: BIANCA Labeltonpaolo Bbnzhq5762 [address] RoadDublin [place] [id number] Potassium [Moles/Vol] 4.6 mmol/L Normal 3.5-5.2 [facility] Internal Medicine; [facility] Work Phone: Comment on above: PATIENT WAS FASTINGP ERFORMED BY: BIANCA Labcopaolo Edwhrs4844 [address] RoadDublin [place] [id number] Protein [Mass/Vol] 6.6 g/dL Normal 6.0-8.5 [facility]; [facility] Work Phone: Comment on above: PATIENT WAS FASTINGP ERFORMED BY: BIANCA Lablee MorganYifixm8045 [address] RoadDuin [place] [id number] Sodium [Moles/Vol] 140 mmol/L Normal 134-144 [facility] Internal [facility]; [facility] Work Phone: Comment on above: PATIENT WAS FASTINGP ERFORMED BY: BIANCA Lablee Odsvvd[address] [facility]blin [place] [id number] Urea nitrogen [Mass/Vol] 17 mg/dL Normal 8-27 [facility]; [facility] Work Phone: Comment on above: PATIENT WAS FASTINGP ERFORMED BY: BIANCA [facility] Rlktis[address] [facility]in [place] [id number] Urea nitrogen/Creatinine [Mass ratio] 20 mg/mg Normal 10-24 [facility]; [facility] Work Phone: Comment on above: PATIENT WAS FASTINGP ERFORMED BY: BIANCA [facility] Nunkfc[address] [facility]bl[facility] [place] [id number] MICROALBUMINOrdered By: Syst em Collection Systems Technician on 01-29-2023 Albumin DL <= 20 mg/L (U) [Mass/Vol] mg/dL Normal [facility]; [facility] Work Phone: Comment on above: Verified by repeat analysis PATIENT WAS FASTINGP ERFORMED BY: BIANCA [facility] Hgwfon6501 [address] RoadDublin [place] [id number] Albumin/Creatinine (U) [Mass ratio] <11 Normal 0-29 [facility]; [facility] Work Phone: Comment on above: Normal: 0 - 29 Moder ately increased: 30 - 300 Severely increased: >300 PATIENT WAS FASTINGP ERFORMED BY: BIANCA [facility] Lnovhd9853 [address] RoadDublin [place] [id number] Creatinine (U) [Mass/Vol] 27.2 mg/dL Normal [facility]; [facility] Work Phone: Comment on above: PATIENT WAS FASTINGP ERFORMED BY: BIANCA Labeltonpaolo Qjbcvw7641 [address] RoadDublin [place] [id number] TSH ([id number])Ordered By: [employer] m Collection Systems Technician on 01-29-2023 TSH Qn 1.360 {uIU/mL} Normal 0.450-4.50 0 [facility]; [facility] Work Phone: Comment on above: PATIENT WAS FASTINGP ERFORMED BY: BIANCA [facility] Yvseep6021 [address] RoadDublin [place] [id number] URINALYSIS, W/ MICRO ([id number]) Ordered By: Inspector Crystal on 01-29-2023 Appearance (U) Clear Normal Comprehens linh Internal Medicine; [facility] Work Phone: Comment on above: PATIENT WAS FASTINGP ERFORMED BY: BIANCA Labcopaolo Kijqvh6437 [address] RoadDublin [place] [id number] Bilirubin Ql (U) Negative Normal Comprehe nsive Internal Medicine; [facility] Work Phone: Comment on above: PATIENT WAS FASTINGP ERFORMED BY: BIANCA [facility] Yjsovi8997 [address] RoadDublin [place] [id number] Color (U) Yellow Normal [facility]; [facility] Work Phone: Comment on above: PATIENT WAS FASTINGP ERFORMED BY: BIANCA [facility] Msnnsb8075 [address] RoadDublin [place] [id number] Glucose Ql (U) Negative Normal Comprehens linh Internal Medicine; [facility] Work Phone: Comment on above: PATIENT WAS FASTINGP ERFORMED BY: BIANCA Sequeira[address] [facility]blin [place] [id number] Hemoglobin Ql (U) Negative Normal Compreh ensive Internal Medicine; [facility] Work Phone: Comment on above: PATIENT WAS FASTINGP ERFORMED BY: BIANCA Sequeira[address] [facility]blin [place] [id number] Ketones Ql (U) Negative Normal Comprehens linh Internal Medicine; [facility] Work Phone: Comment on above: PATIENT WAS FASTINGP ERFORMED BY: BIANCA Sequeira[address] [facility] Centerblin [place] [id number] Leukocyte esterase Test strip Ql (U) Negative Normal [facility]; [facility] Work Phone: Comment on above: PATIENT WAS FASTINGP ERFORMED BY: BIANCA Sequeira[address] [facility] [id number] Microscopic observation LM Nom (Urine sed) MICRON Normal [facility]; [facility] Work Phone: Comment on above: Microscopic follows if indicated. PATIENT WAS FASTINGP ERFORMED BY: BIANAC Morganlin[address] [facility] HospitalDublin [place] [id number] Microscopic observation LM Nom (Urine sed) See below: Normal [facility]; [facility] Work Phone: Comment on above: Microscopic was nathaniel cated and was performed. PATIENT WAS FASTINGP ERFORMED BY: BIANCA Morganlin6370 [address] RoadDublin [place] [id number] Nitrite Ql (U) Negative Normal Comprehens linh Internal Medicine; [facility] Work Phone: Comment on above: PATIENT WAS FASTINGP ERFORMED BY: BIANCA Morganlin[address] [facility] HospitalD[place] [id number] pH (U) 7.5 [pH] Normal 5.0-7.5 [facility]; [facility] Work Phone: Comment on above: PATIENT WAS FASTINGP ERFORMED BY: BIANCA Stantonco Xdopmy7241 [facility] [id number] Protein Ql (U) Negative Normal Comprehens linh Internal Medicine; [facility] Work Phone: Comment on above: PATIENT WAS FASTINGP ERFORMED BY: [facility] FoundationHenry [facility]6370 [facility] [id number] Specific gravity (U) [Rel density] 1.010 1 Normal 1.005-1.03 0 [facility]; [facility] Work Phone: Comment on above: PATIENT WAS FASTINGP ERFORMED BY: [facility] Dpbosw0881 [facility] [id number] Urobilinogen (U) [Mass/Vol] 0.2 mg/dL Normal 0.2-1.0 [facility]; [facility] Work Phone: Comment on above: PATIENT WAS FASTINGP ERFORMED BY: Agendize Lhuscm4302 [facility] [id number] Basophil percentageOrdered B y: Dr. Santo on 11-02-2022 Chloride [Moles/Vol] 105 mmol/L 98-107 [facility] Glucose [Mass/Vol] 113 mg/dL 74-106 [facility] Comment on above: Fasting Glucose resu lt from 100 to 125 mg/dL suggests IMPAIRED HOMEOSTASIS per A.D.A. criteria. Potassium [Moles/Vol] 4.5 mmol/L 3.5-5.1 [facility] Sodium [Moles/Vol] 138 mmol/L 136-145 [facility] Laboratory - Chemistry and C hemistry - challengeOrdered By: Dr. Santo on 11-02-2022 CO2 [Moles/Vol] 28.0 mmol/L 21.0-32.[address] [facility] Urea nitrogen/Creatinine [Mass ratio] 14.9 mg/mg - [facility] No Panel InformationOrdered By: Dr. Santo on 11-02-2022 Estimated GFR (MDRD) Amer 70 mL/min >[address] [facility] Comment on above: GFR Calc Estimated GFR (MDRD) Non-Af Amer 57 mL/min >[address] [facility] Comment on above: Non- GFR Calc Serum or plasma calcium kiet urement (mass/volume)Ordered By: Dr. Santo on 11-02-2022 Calcium [Mass/Vol] 9.1 mg/dL 8.5-10.1 [facility] Serum or plasma creatinine m easurement (mass/volume)Ordered By: Dr. Santo on 11-02-2022 Creatinine [Mass/Vol] 1.34 mg/dL 0.70-1.30 [facility] Comment on above: The validity of the calculated GFR & GFRAA in patients over 70 years has not been determined. Clinical correlation is essential. Serum or plasma urea nitroge n measurement (mass/volume)Ordered By: Dr. Santo on 11-02-2022 Urea nitrogen [Mass/Vol] 20 mg/dL 7-[address] [facility] Thin prep Papanicolaou smear with manual screeningOrdered By: Dr. Santo on 11-02-2022 Thin prep Papanicolaou smear with manual screening 5 5-[address] [facility] CALCIFIDIOL ([id number]) VIT D 25 Ordered By: Inspector Crystal on 04-21-2022 25-hydroxyvitamin D [Mass/Vol] 81.2 ng/mL Normal 30.0-100.0 [facility]; [facility] Work Phone: Comment on above: Vitamin D deficiency has been defined by the [place] of[place]icine and an Endocrine Society practice guideline as alevel of serum 25-OH vitamin D less than 20 ng/mL (1,2).The Endocrine Society went on to further define vitamin Dinsufficiency as a level between 21 and 29 ng/mL (2).1. IOM ([place] of Medicine). 2010. Dietary reference intakes for calcium and D. [place]: The National Academies Press.2. Abraham MF, Robert NC, Seamus JOYNER, et al. Evaluation, treatment, and prevention of vitamin D deficiency: an Endocrine Society clinical practice guideline. JCEM. 2010; 96(7):1911-30. PATIENT WAS FASTINGP ERFORMED BY: [facility] Fgddnh3591 [facility] [id number] LIPID PANEL ([id number])Ordered B y: Inspector Crystal on 04-21-2022 Cholesterol [Mass/Vol] 226 mg/dL Abnormal 100-199 [facility]erens[facility]; [facility] Work Phone: Comment on above: PATIENT WAS FASTINGP ERFORMED BY: BIANCA [facility] Fdlzuf1139 [address] RoadDublin [place] [id number] Cholesterol in HDL [Mass/Vol] 67 mg/dL Normal [facility]; [facility] Work Phone: Comment on above: PATIENT WAS FASTINGP ERFORMED BY: BIANCA [facility] Rsnlnc8920 [address] RoadDublin [place] [id number] Triglyceride [Mass/Vol] 78 mg/dL Normal 0-149 C bothwell [facility] health centerensive Internal Medicine; [facility] Work Phone: Comment on above: PATIENT WAS FASTINGP ERFORMED BY: BIANCA Labcopaolo Ipdeec1315 [address] RoadDublin [place] [id number] LIPID PANEL ([id number]) 14 mg/dL Normal 5-40 Compr ensive Internal Medicine; [facility] Work Phone: Comment on above: PATIENT WAS FASTINGP ERFORMED BY: BIANCA [facility] Eneabq0034 [address] RoadDublin [place] [id number] LIPID PANEL (36287) 145 mg/dL Abnormal 0-99 [facility]; [facility] Work Phone: Comment on above: PATIENT WAS FASTINGP ERFORMED BY: BIANCA [facility] Taoezj7936 [address] RoadDublin [place] [id number] LIPID PANEL (81651) 2.2 {ratio} Normal 0.0-3.[address] [facility]ensive [facility]; [facility] Work Phone: Comment on above: LDL/HDL Ratio Men Wo men 1/2 Avg.Risk 1.0 1.5 Avg.Risk 3.6 3.2 2X Avg.Risk 6.2 5.0 3X Avg.Risk 8.0 6.1 PATIENT WAS FASTINGP ERFORMED BY: BIANCA [facility] Jltkrg7853 [address] RoadDublin [place] [id number] PSA (PROSTATE SPECIFIC ANTIG EN) (V76.44)Ordered By: Inspector Crystal on 04-21-2022 Prostate specific Ag [Mass/Vol] 0.9 ng/mL Normal 0.0-4.0 [facility]; [facility] Work Phone: Comment on above: Rupinder ECLIA methodol ogy. .According to the [place] [employer], Serum PSA shoulddecrease and remain at undetectable levels after radicalprostatectomy. The AUA defines biochemical recurrence as an initialPSA value 0.2 ng/mL or greater followed by a subsequent confirmatoryPSA value 0.2 ng/mL or greater.Values obtained with different assay methods or kits cannot be usedinterchangeably. Results cannot be interpreted as absolute evidenceof the presence or absence of malignant disease. PATIENT WAS FASTINGP ERFORMED BY: LabHenry [facility]6370 [facility] [id number] Blood Glucose , Office ([phone])Ordered By: Licha Nur on 01-23-2022 Glucose Glucometer (BldC) [Moles/Vol] 98 1 Normal [facility]; [facility] Work Phone: HgA1C , Office ([phone])Ordere d By: Licha Nur on 01-23-2022 HbA1c (Bld) [Mass fraction] 5.3 % Normal 4.6 - 7.1 [facility]; [facility] Work Phone: Blood Glucose , Office ([phone])on 04-06-2021 Glucose Glucometer (BldC) [Moles/Vol] 88 1 Normal [facility]; [facility] Work Phone: CALCIFIDIOL (05651) VIT D 25 Ordered By: Inspector Crystal on 04-06-2021 25-hydroxyvitamin D [Mass/Vol] 69.7 ng/mL Normal 30.0-100.0 [facility]; [facility] Work Phone: Comment on above: Vitamin D deficiency has been defined by the [place] of[place]icine and an Endocrine Society practice guideline as alevel of serum 25-OH vitamin D less than 20 ng/mL (1,2).The Endocrine Society went on to further define vitamin Dinsufficiency as a level between 21 and 29 ng/mL (2).1. IOM ([place] of [place]). 2010. Dietary reference intakes for calcium and D. [place]: The National Academies Press.2. Abraham MF, Robert NC, Seamus JOYNER, et al. Evaluation, treatment, and prevention of vitamin D deficiency: an Endocrine Society clinical practice guideline. JCEM. 2010; 96(7):1911-30. PATIENT WAS FASTINGP ERFORMED BY: CB [facility] Ashizx1335 [address] RoadDublin [place] [id number] CBC W/AUTO DIFF WBC ([id number])O rdered By: Inspector Crystal on 04-06-2021 Basophils (Bld) [#/Vol] 0.1 10*3/uL Normal 0.0-0.2 [facility]; [facility] Work Phone: Comment on above: PATIENT WAS FASTINGP ERFORMED BY: CB [facility] Yiwoyf4323 [address] RoadDublin [place] [id number] Basophils/100 WBC (Bld) 1 % Normal C omprehensive Internal Medicine; [facility] Work Phone: Comment on above: PATIENT WAS FASTINGP ERFORMED BY: CB [facility] Urmuhk2205 [address] RoadDublin [place] [id number] Eosinophils (Bld) [#/Vol] 0.2 10*3/uL Normal 0.0-0.4 [facility]; [facility] Work Phone: Comment on above: PATIENT WAS FASTINGP ERFORMED BY: [facility] Hbpyki3584 [address] RoadDublin [place] [id number] Eosinophils/100 WBC (Bld) 3 % Normal [facility]; [facility] Work Phone: Comment on above: PATIENT WAS FASTINGP ERFORMED BY: CB [facility] Vckcbz8075 [address] RoadDublin [place] [id number] Erythrocyte distribution width (RBC) [Ratio] 12.8 % Normal 11.6-15.4 [facility]; [facility] Work Phone: Comment on above: PATIENT WAS FASTINGP ERFORMED BY: CB [facility] Uqoovt9389 [address] RoadDublin [place] [id number] Hematocrit (Bld) [Volume fraction] 44.5 % Normal 37.5-51.0 [facility]; [facility] Work Phone: Comment on above: PATIENT WAS FASTINGP ERFORMED BY: BIANCA Sequeira6[address]bl[address] [place] [id number] Hemoglobin (Bld) [Mass/Vol] 14.5 g/dL Normal 13.0-17.7 [facility]; [facility] Work Phone: Comment on above: PATIENT WAS FASTINGP ERFORMED BY: BIANCA Vicky Plfeow11[address]bl[address] [place] [id number] Immature granulocytes (Bld) [#/Vol] 0.0 10*3/uL Normal 0.0-0.1 [facility]; [facility] Work Phone: Comment on above: PATIENT WAS FASTINGP ERFORMED BY: BIANCA Vicky Cksfqk9771 [address] Roadblin [place] [id number] Immature granulocytes/100 WBC (Bld) 1 % Normal [facility]; [facility] Work Phone: Comment on above: PATIENT WAS FASTINGP ERFORMED BY: BIANCA [facility] Neesdv[address] [facility]bl[facility] [place] [id number] Lymphocytes (Bld) [#/Vol] 1.1 10*3/uL Normal 0.7-3.1 [facility]; [facility] Work Phone: Comment on above: PATIENT WAS FASTINGP ERFORMED BY: Vicky Gyinjs4440 [address] RoadNovant Healthin [place] [id number] Lymphocytes/100 WBC (Bld) 19 % Normal [facility]; [facility] Work Phone: Comment on above: PATIENT WAS FASTINGP ERFORMED BY: BIANCA [facility] Bdizil4101 [address] RoadDublin [place] [id number] MCH (RBC) [Entitic mass] 29.5 pg Normal 26.6-33.0 [facility]; [facility] Work Phone: Comment on above: PATIENT WAS FASTINGP ERFORMED BY: [facility] Rupvob[address] [facility]bl[facility] [place] [id number] MCHC (RBC) [Mass/Vol] 32.6 g/dL Normal 31.5-35.7 [facility] prehensive Internal Medicine; [facility] Work Phone: Comment on above: PATIENT WAS FASTINGP ERFORMED BY: BIANCA MaximinoEltonpaolo SequeiraDcntbr3487 [address] RoadAngelitoblin [place] [id number] MCV (RBC) [Entitic vol] 91 fL Normal 79-97 C omprehensive Internal Medicine; [facility] Work Phone: Comment on above: PATIENT WAS FASTINGP ERFORMED BY: BIANCA LabCopaolo MorganVotnob1356 [address] RoadAngelitoblin [place] [id number] Monocytes (Bld) [#/Vol] 0.5 10*3/uL Normal 0.1-0.9 [facility]; [facility] Work Phone: Comment on above: PATIENT WAS FASTINGP ERFORMED BY: BIANCA LabLee MorganLlatlr1024 [address] RoadDublin [place] [id number] Monocytes/100 WBC (Bld) 7 % Normal C omprehensive Internal Medicine; [facility] Work Phone: Comment on above: PATIENT WAS FASTINGP ERFORMED BY: BIANCA LabLee MorganMnwpzp9261 [address] Roadblin [place] [id number] Neutrophils (Bld) [#/Vol] 4.2 10*3/uL Normal 1.4-7.0 [facility]; [facility] Work Phone: Comment on above: PATIENT WAS FASTINGP ERFORMED BY: BIANCA [facility] Osunxm9240 [address] RoadDublin [place] [id number] Neutrophils/100 WBC (Bld) 69 % Normal [facility]; [facility] Work Phone: Comment on above: PATIENT WAS FASTINGP ERFORMED BY: BIANCA [facility] Ilasng2763 [address] RoadDublin [place] [id number] Platelets (Bld) [#/Vol] 252 10*3/uL Normal 150-450 [facility]; [facility] Work Phone: Comment on above: PATIENT WAS FASTINGP ERFORMED BY: BIANCA [facility] Lrnnjk0723 [address] RoadDublin [place] [id number] RBC (Bld) [#/Vol] 4.91 10*6/uL Normal 4.14-5.80 [facility]ensive [facility]; [facility] Work Phone: Comment on above: PATIENT WAS FASTINGP ERFORMED BY: CB [facility] Yopook1209 [address]Dublin [place] [id number] WBC (Bld) [#/Vol] 6.1 10*3/uL Normal 3.4-10.8 [facility]; [facility] Work Phone: Comment on above: PATIENT WAS FASTINGP ERFORMED BY: BIANCA [facility] Yvraxr9029 [address] RoadDublin [place] [id number] HgA1C , Office ([id number])Ordere d By: Charlie Dhillon on 04-06-2021 HbA1c (Bld) [Mass fraction] 5.2 % Normal 4.6 - 7.1 [facility]; [facility] Work Phone: LIPID PANEL (02275)Ordered B y: Inspector Crystal on 04-06-2021 Cholesterol [Mass/Vol] 255 mg/dL Abnormal 100-199 [facility]; [facility] Work Phone: Comment on above: PATIENT WAS FASTINGP ERFORMED BY: BIANCA [facility] Eaqswe95[address] RoadDublin [place] [id number] Cholesterol in HDL [Mass/Vol] 70 mg/dL Normal [facility]; [facility] Work Phone: Comment on above: PATIENT WAS FASTINGP ERFORMED BY: CB [facility] Uogbld9142 [address] RoadDublin [place] [id number] Triglyceride [Mass/Vol] 93 mg/dL Normal 0-[address] [facility]ensive [facility]; [facility] Work Phone: Comment on above: PATIENT WAS FASTINGP ERFORMED BY: CB [facility] Mlcyrp0484 [address] RoadDublin [place] [id number] LIPID PANEL (85015) 16 mg/dL Normal 5-40 Compr ensive Internal Medicine; [facility] Work Phone: Comment on above: PATIENT WAS FASTINGP ERFORMED BY: BIANCA [facility] Mpvdgb2297 [address] Roadblin [place] [id number] LIPID PANEL (38687) 169 mg/dL Abnormal 0-99 [facility] Internal Medicine; [facility] Work Phone: Comment on above: PATIENT WAS FASTINGP ERFORMED BY: BIANCA [facility] Imowuj7463 [address] Roadblin [place] [id number] LIPID PANEL (69372) 2.4 {ratio} Normal 0.0-3.6 [facility]; [facility] Work Phone: Comment on above: LDL/HDL Ratio Men Wo men 1/2 Avg.Risk 1.0 1.5 Avg.Risk 3.6 3.2 2X Avg.Risk 6.2 5.0 3X Avg.Risk 8.0 6.1 PATIENT WAS FASTINGP ERFORMED BY: BIANCA [facility] Cwsntc[address] [facility] [id number] MAGNESIUM (85336)Ordered By: Inspector Crystal on 04-06-2021 Magnesium [Mass/Vol] 2.1 mg/dL Normal 1.6-2.3 [facility] Internal Medicine; [facility] Work Phone: Comment on above: PATIENT WAS FASTINGP ERFORMED BY: BIANCA [facility] Prfuga[address] [facility] [place] [id number] METABOLIC PANEL, COMPREHENSI VE (36887)Ordered By: Inspector Crystal on 04-06-2021 Albumin [Mass/Vol] 3.9 g/dL Normal 3.8-4.9 [facility] Internal Medicine; [facility] Work Phone: Comment on above: PATIENT WAS FASTINGP ERFORMED BY: BIANCA [facility] Ddhgmp[address] [facility] HospitalDublin [place] [id number] Albumin/Globulin [Mass ratio] 1.3 {ratio} Normal 1.2-2.2 [facility]; [facility] Work Phone: Comment on above: PATIENT WAS FASTINGP ERFORMED BY: BIANCA [facility] Mogsmi[address] [facility] [place] [id number] ALP [Catalytic activity/Vol] 64 U/L Normal 48-121 [facility]; [facility] Work Phone: Comment on above: PATIENT WAS FASTINGP ERFORMED BY: CB [facility] Mmtrlc2651 [address] RoadDublin [place] [id number] ALT [Catalytic activity/Vol] 27 U/L Normal 0-44 [facility]; [facility] Work Phone: Comment on above: PATIENT WAS FASTINGP ERFORMED BY: CB [facility] Wugkjd5613 [address] RoadDublin [place] [id number] AST [Catalytic activity/Vol] 17 U/L Normal 0-40 [facility]; [facility] Work Phone: Comment on above: PATIENT WAS FASTINGP ERFORMED BY: CB [facility] Mcvtos7117 [address] RoadDublin [place] [id number] Bilirubin [Mass/Vol] 0.4 mg/dL Normal 0.0-1.2 [facility]; [facility] Work Phone: Comment on above: PATIENT WAS FASTINGP ERFORMED BY: [facility] Nrrhok8976 [address] RoadDublin [place] [id number] Calcium [Mass/Vol] 9.7 mg/dL Normal 8.6-10.2 [facility] Internal Medicine; [facility] Work Phone: Comment on above: PATIENT WAS FASTINGP ERFORMED BY: [facility] Vmqhrr5866 [address] RoadDublin [place] [id number] Chloride [Moles/Vol] 102 mmol/L Normal 96-106 [facility]; [facility] Work Phone: Comment on above: PATIENT WAS FASTINGP ERFORMED BY: CB [facility] Szionw5130 [address] RoadDublin [place] [id number] CO2 [Moles/Vol] 26 mmol/L Normal 20-29 [facility] Internal Medicine; [facility] Work Phone: Comment on above: PATIENT WAS FASTINGP ERFORMED BY: CB [facility] Rlwxdz6817 [address] RoadDublin [place] [id number] Creatinine [Mass/Vol] 0.89 mg/dL Normal 0.76-1.27 [facility] prehensive Internal Medicine; [facility] Work Phone: Comment on above: PATIENT WAS FASTINGP ERFORMED BY: [facility] Qsszmv4416 [facility] [id number] GFR/1.73 sq M.predicted among blacks CKD-EPI (S/P/Bld) [Vol rate/Area] 107 mL/min/1.73 Normal [facility]; [facility] Work Phone: Comment on above: [facility] currently reports eGFR in compliance with the current recommendations of the National Kidney Foundation. Cystin[facility] Research Foundationbarn[facility] will update reporting as new guidelines are published from the NKF-ASN Task force. PATIENT WAS FASTINGP ERFORMED BY: [facility] Xgaete6070 [facility] [id number] GFR/1.73 sq M.predicted among non-blacks CKD-EPI (S/P/Bld) [Vol rate/Area] 93 mL/min/1.73 Normal [facility]; [facility] Work Phone: Comment on above: PATIENT WAS FASTINGP ERFORMED BY: [facility]6370 [facility] [id number] Globulin (S) [Mass/Vol] 2.9 g/dL Normal 1.5-4.5 [facility]rehens[facility] Internal [facility]; [facility] Work Phone: Comment on above: PATIENT WAS FASTINGP ERFORMED BY: [facility]6370 [facility] [id number] Glucose [Mass/Vol] 92 mg/dL Normal 65-99 [facility] Internal Medicine; [facility] Work Phone: Comment on above: PATIENT WAS FASTINGP ERFORMED BY: [facility]6370 [facility] [id number] Potassium [Moles/Vol] 4.6 mmol/L Normal 3.5-5.2 [facility] prehensive Internal Medicine; [facility] Work Phone: Comment on above: PATIENT WAS FASTINGP ERFORMED BY: [facility]6[address]Dublin [place] [id number] Protein [Mass/Vol] 6.8 g/dL Normal 6.0-8.5 [facility] Internal Medicine; [facility] Work Phone: Comment on above: PATIENT WAS FASTINGP ERFORMED BY: BIANCA [facility] Wkjzwj6967 [address] RoadDublin [place] [id number] Sodium [Moles/Vol] 140 mmol/L Normal 134-144 [facility] Internal Medicine; [facility] Work Phone: Comment on above: PATIENT WAS FASTINGP ERFORMED BY: BIANCA [facility] Dsikhd8022 [address] RoadDublin [place] [id number] Urea nitrogen [Mass/Vol] 17 mg/dL Normal 8-27 [facility]; [facility] Work Phone: Comment on above: PATIENT WAS FASTINGP ERFORMED BY: BIANCA [facility] Ncvfjy1026 [address] RoadDublin [place] [id number] Urea nitrogen/Creatinine [Mass ratio] 19 mg/mg Normal 10-24 [facility]; [facility] Work Phone: Comment on above: PATIENT WAS FASTINGP ERFORMED BY: BIANCA [facility] Otzmaw[address] [facility]bl[facility] [place] [id number] PSA (PROSTATE SPECIFIC ANTIG EN) (V76.44)Ordered By: Inspector Crystal on 04-06-2021 Prostate specific Ag [Mass/Vol] 0.7 ng/mL Normal 0.0-4.0 [facility]; [facility] Work Phone: Comment on above: [employer] ECLIA methodol ogy. .According to the [place] [employer], Serum PSA shoulddecrease and remain at undetectable levels after radicalprostatectomy. The AUA defines biochemical recurrence as an initialPSA value 0.2 ng/mL or greater followed by a subsequent confirmatoryPSA value 0.2 ng/mL or greater.Values obtained with different assay methods or kits cannot be usedinterchangeably. Results cannot be interpreted as absolute evidenceof the presence or absence of malignant disease. PATIENT WAS FASTINGP ERFORMED BY: CB [facility] Cmeekn2664 [address] RoadDublin [place] [id number] TSH ([id number])Ordered By: BITAKA Cards [employer] Solutionse m Collection Systems Technician on 04-06-2021 TSH Qn 1.420 {uIU/mL} Normal 0.450-4.50 0 [facility]; [facility] Work Phone: Comment on above: PATIENT WAS FASTINGP ERFORMED BY: BIANCA Sequeira6[address] RoadDublin [place] [id number] URINALYSIS ([id number])Ordered By : Inspector Crystal on 04-06-2021 Appearance (U) Clear Normal Comprehens linh Internal Medicine; [facility] Work Phone: Comment on above: PATIENT WAS FASTINGP ERFORMED BY: BIANCA Sequeira6[address] RoadDublin [place] [id number] Bilirubin Ql (U) Negative Normal Comprehe nsive Internal Medicine; [facility] Work Phone: Comment on above: PATIENT WAS FASTINGP ERFORMED BY: BIANCA Sequeira6[address] RoadDublin [place] [id number] Color (U) Yellow Normal [facility]; [facility] Work Phone: Comment on above: PATIENT WAS FASTINGP ERFORMED BY: BIANCA Sequeira6[address]Dublin [place] [id number] Glucose Ql (U) Negative Normal Comprehens linh Internal Medicine; [facility] Work Phone: Comment on above: PATIENT WAS FASTINGP ERFORMED BY: BIANCA Sequeira6[address] RoadDublin [place] [id number] Hemoglobin Ql (U) Negative Normal Compreh ensive Internal Medicine; [facility] Work Phone: Comment on above: PATIENT WAS FASTINGP ERFORMED BY: BIANAC Morganlin6[address] RoadDublin [place] [id number] Ketones Ql (U) Negative Normal Comprehens linh Internal Medicine; [facility] Work Phone: Comment on above: PATIENT WAS FASTINGP ERFORMED BY: BIANCA Morganlin6[address]Dublin [place] [id number] Leukocyte esterase Test strip Ql (U) Negative Normal [facility]; [facility] Work Phone: Comment on above: PATIENT WAS FASTINGP ERFORMED BY: BIANCA Rocío Sequeira[address] [facility]blin [place] [id number] Microscopic observation LM Nom (Urine sed) MICNIP Normal [facility]; [facility] Work Phone: Comment on above: Microscopic not nathaniel cated and not performed. PATIENT WAS FASTINGP ERFORMED BY: BIANCA Vikcy Xpbvzb[address] [facility]blin [place] [id number] Nitrite Ql (U) Negative Normal Comprehens linh Internal Medicine; [facility] Work Phone: Comment on above: PATIENT WAS FASTINGP ERFORMED BY: BIANCA Vicky Suadhs[address] [facility] [id number] pH (U) 6.5 [pH] Normal 5.0-7.5 [facility]; [facility] Work Phone: Comment on above: PATIENT WAS FASTINGP ERFORMED BY: BIANCA [facility] Ihgtoc[address] [facility]in [place] [id number] Protein Ql (U) Negative Normal Comprehens linh Internal Medicine; [facility] Work Phone: Comment on above: PATIENT WAS FASTINGP ERFORMED BY: BIANCA Vicky Vwmlct6918 [facility] [id number] Specific gravity (U) [Rel density] 1.022 1 Normal 1.005-1.03 0 [facility]; [facility] Work Phone: Comment on above: PATIENT WAS FASTINGP ERFORMED BY: [facility] Yeppiu[address] [facility]in [place] [id number] Urobilinogen (U) [Mass/Vol] 0.2 mg/dL Normal 0.2-1.0 [facility]; [facility] Work Phone: Comment on above: PATIENT WAS FASTINGP ERFORMED BY: BIANCA [facility] Cjwnzi[address] [facility]in [place] [id number] CALCIFEDIOL (77170)Ordered B y: Inspector Crystal on 11-22-2020 25-Hydroxyvitamin D2+25-Hydroxyvitamin D3 [Mass/Vol] 64.8 ng/mL Normal 30.0-100.0 [facility]; [facility] Work Phone: Comment on above: Vitamin D deficiency has been defined by the [place] ofMedicine and an Endocrine Society practice guideline as alevel of serum 25-OH vitamin D less than 20 ng/mL (1,2).The Endocrine Society went on to further define vitamin Dinsufficiency as a level between 21 and 29 ng/mL (2).1. IOM ([place] of Medicine). 2010. Dietary reference intakes for calcium and D. [place]: The National Academies Press.2. Abraham MF, Robert MOREIRA, Seamus JOYNER, et al. Evaluation, treatment, and prevention of vitamin D deficiency: an Endocrine Society clinical practice guideline. JCEM. 2010; 96(7):1911-30. Test(s) 611514-QZJ-H ; 125533-HGQ-K; 246989-Xsrmjybflygnb; 401810-Bqfobobjkqr, Total; 725169-HNF-E (Total); 818293-Wxlws LDL-P; 241065-CKY Size; 130227-BI-CY Scorewas developed and its performance characteristics determinedby [employer]. It has not been cleared or approved by the Foodand Drug Administration.PATIENT WAS FASTINGPERFORMED BY: [facility] [address] [id number] BY: [facility] Wakqyh8137 [facility] [id number] CBC with auto diff (64118)Or dered By: Inspector Crystal on 11-22-2020 Basophils (Bld) [#/Vol] 0.1 {x10E3/uL} Normal 0.0-0.2 [facility]; [facility] Work Phone: Comment on above: Test(s) 908864-BNY-L ; 671579-WTY-Z; 528938-Xhqpkgaaqbahj; 955273-Tojajiugzfq, Total; 050441-OBA-B (Total); 824354-Cnbqf LDL-P; 102786-AAK Size; 164802-PP-DX Scorewas developed and its performance characteristics determinedby [employer]. It has not been cleared or approved by the Foodand Drug Administration.PATIENT WAS FASTINGPERFORMED BY: CodeSquare[address] [id number] BY: [employer] Cqmzfg[address] [facility] [id number] Basophils (Bld) [#/Vol] 0.1 10*3/uL Normal 0.0-0.2 [facility]; [facility] Work Phone: Comment on above: Test(s) 182881-VEL-X ; 251929-TZZ-P; 400201-Ecqqteoneecyr; 455532-Qanivxfomfx, Total; 235831-VEZ-E (Total); 991922-Sqwxy LDL-P; 154876-QSI Size; 689487-IP-DH Scorewas developed and its performance characteristics determinedby [employer]. It has not been cleared or approved by the Foodand Drug Administration.PATIENT WAS FASTINGPERFORMED BY: [employer] [address] [id number] BY: Answerology[address] [facility] [id number] Basophils/100 WBC (Bld) 2 % Normal C [facility] hospitalensive Internal [facility]; [facility] Work Phone: Comment on above: Test(s) 484099-XQX-O ; 935108-BMT-K; 927597-Bxcliogcahrbj; 246015-Rwynrtjycpo, Total; 936154-AUC-P (Total); 648787-Dyjjw LDL-P; 424374-GNV Size; 318877-RH-ZO Scorewas developed and its performance characteristics determinedby [employer]. It has not been cleared or approved by the Foodand Drug Administration.PATIENT WAS FASTINGPERFORMED BY: CodeSquare[address] [id number] BY: Jinko Solar HoldingRobert Wood Johnson University HospitalYqrqlg3603 [facility] [id number] Eosinophils (Bld) [#/Vol] 0.4 {x10E3/uL} Normal 0.0-0.4 [facility]; [facility] Work Phone: Comment on above: Test(s) 069337-XNF-O ; 322381-HQV-V; 842649-Buqpjvtscwixq; 632760-Rtwmcpfjzbi, Total; 365279-POU-T (Total); 169854-Fmywa LDL-P; 707086-PME Size; 638283-IY-PV Scorewas developed and its performance characteristics determinedby [employer]. It has not been cleared or approved by the Foodand Drug Administration.PATIENT WAS FASTINGPERFORMED BY: [employer] [address] [id number] BY: [email or web address] Kcdljj4406 [facility] [id number] Eosinophils (Bld) [#/Vol] 0.4 10*3/uL Normal 0.0-0.4 [facility]; [facility] Work Phone: Comment on above: Test(s) 351322-VDD-V ; 748583-LDC-D; 177702-Rhzjjxpxljfgu; 718749-Wptozurorqg, Total; 946607-UHU-V (Total); 193324-Tfrtv LDL-P; 823681-EFB Size; 720147-EA-FC Scorewas developed and its performance characteristics determinedby [employer]. It has not been cleared or approved by the Foodand Drug Administration.PATIENT WAS FASTINGPERFORMED BY: [employer] [address] [id number] BY: ImmuRx6[address] [place] Platform9 SystemsCaroMont Regional [facility] Center [facility] [id number] Eosinophils/100 WBC (Bld) 9 % Normal [facility]; [facility] Work Phone: Comment on above: Test(s) 468378-DTN-C ; 375695-PSZ-R; 553431-Irqeiedcoeazz; 338254-Uvkjtuqnnqa, Total; 315579-GFO-X (Total); 725578-Jxlvj LDL-P; 281241-CQG Size; 018995-DL-QG Scorewas developed and its performance characteristics determinedby [employer]. It has not been cleared or approved by the Foodand Drug Administration.PATIENT WAS FASTINGPERFORMED BY: Azonia[address] [id number] BY: [employer] Gmljkl9323 [facility] [id number] Erythrocyte distribution width (RBC) [Ratio] 12.4 % Normal 11.6-15.4 [facility]; [facility] Work Phone: Comment on above: Test(s) 620385-NDB-Y ; 780188-EZQ-S; 511384-Oqtydtoelutdp; 960842-Ilcweeytpiz, Total; 485102-KFH-R (Total); 730990-Fpvfd LDL-P; 482977-AUJ Size; 827067-MT-OD Scorewas developed and its performance characteristics determinedby [employer]. It has not been cleared or approved by the Foodand Drug Administration.PATIENT WAS FASTINGPERFORMED BY: Azonia[address] [id number] BY: ImmuRx6370 [facility] [id number] Hematocrit (Bld) [Volume fraction] 43.3 % Normal 37.5-51.0 [facility]; [facility] Work Phone: Comment on above: Test(s) 378462-REL-S ; 747445-ELE-B; 318782-Ifjxovneergub; 074765-Itmywtoygne, Total; 143932-XNY-B (Total); 660390-Clipb LDL-P; 840425-CTA Size; 941083-WF-KT Scorewas developed and its performance characteristics determinedby [employer]. It has not been cleared or approved by the Foodand Drug Administration.PATIENT WAS FASTINGPERFORMED BY: [employer] [address] [id number] BY: CiiNOW Bpdmpb1720 [facility] [id number] Hemoglobin (Bld) [Mass/Vol] 14.4 g/dL Normal 13.0-17.7 [facility]; [facility] Work Phone: Comment on above: Test(s) 689757-PVS-R ; 420248-APD-L; 982047-Gvwbssmkwoezm; 683302-Mwquehcbgbe, Total; 679577-XVX-C (Total); 532722-Dquzd LDL-P; 832593-NWG Size; 356381-OA-EC Scorewas developed and its performance characteristics determinedby [employer]. It has not been cleared or approved by the Foodand Drug Administration.PATIENT WAS FASTINGPERFORMED BY: CodeSquare[address] [id number] BY: CodeSquare[address] [id number] Immature granulocytes (Bld) [#/Vol] 0.0 {x10E3/uL} Normal 0.0-0.1 [facility]; [facility] Work Phone: Comment on above: Test(s) 018944-EVN-Q ; 899812-MZJ-C; 150305-Lnrerbpegyaze; 487930-Brovcypgrso, Total; 581700-ZVQ-U (Total); 485811-Cloxq LDL-P; 338728-ZYP Size; 681336-ND-VI Scorewas developed and its performance characteristics determinedby [employer]. It has not been cleared or approved by the Foodand Drug Administration.PATIENT WAS FASTINGPERFORMED BY: CodeSquare[address] [id number] BY: CodeSquareRobert Wood Johnson University HospitalVwqbqb8086 [facility] [id number] Immature granulocytes (Bld) [#/Vol] 0.0 10*3/uL Normal 0.0-0.1 [facility]; [facility] Work Phone: Comment on above: Test(s) 463109-BRJ-Q ; 953260-VRW-O; 242999-Olynraguqdlwy; 491424-Dnswseiqdoj, Total; 791488-JAI-C (Total); 170173-Frudn LDL-P; 213615-RRI Size; 430897-VV-OZ Scorewas developed and its performance characteristics determinedby [employer]. It has not been cleared or approved by the Foodand Drug Administration.PATIENT WAS FASTINGPERFORMED BY: iWarda[address] [id number] BY: [employer] Cllnof4205 [facility] [id number] Immature granulocytes/100 WBC (Bld) 0 % Normal [facility]; [facility] Work Phone: Comment on above: Test(s) 809812-CQO-P ; 734536-XUJ-M; 733958-Nztnkwuvkqwej; 839086-Umjhcxjyieo, Total; 791074-SNB-B (Total); 280156-Vcufb LDL-P; 499368-BEB Size; 181183-QC-MN Scorewas developed and its performance characteristics determinedby [employer]. It has not been cleared or approved by the Foodand Drug Administration.PATIENT WAS FASTINGPERFORMED BY: [employer] [address] [id number] BY: ImmuRx6370 [facility] [id number] Lymphocytes (Bld) [#/Vol] 1.3 {x10E3/uL} Normal 0.7-3.1 [facility]; [facility] Work Phone: Comment on above: Test(s) 587830-QQP-J ; 354167-APE-N; 200693-Wlrzrzaboyirl; 778858-Ydglilaaemp, Total; 337252-SCJ-T (Total); 811553-Blfet LDL-P; 637378-PXD Size; 091852-KA-LC Scorewas developed and its performance characteristics determinedby [employer]. It has not been cleared or approved by the Foodand Drug Administration.PATIENT WAS FASTINGPERFORMED BY: [employer] [address] [id number] BY: Jinko Solar HoldingRobert Wood Johnson University HospitalPaqdfk0310 [facility] [id number] Lymphocytes (Bld) [#/Vol] 1.3 10*3/uL Normal 0.7-3.1 [facility]; [facility] Work Phone: Comment on above: Test(s) 011558-CBG-W ; 722758-KZW-N; 600526-Fmltetyhwrikm; 634166-Eqdtilbujat, Total; 345765-RCQ-T (Total); 878567-Badrh LDL-P; 824446-BKO Size; 595711-KQ-LJ Scorewas developed and its performance characteristics determinedby [employer]. It has not been cleared or approved by the Foodand Drug Administration.PATIENT WAS FASTINGPERFORMED BY: [employer] [address] [id number] BY: [employer]70 [facility] [id number] Lymphocytes/100 WBC (Bld) 30 % Normal [facility]; [facility] Work Phone: Comment on above: Test(s) 390245-IUB-H ; 246386-NMZ-T; 583591-Uakbmhdndlnve; 504830-Rtedubswdgv, Total; 104634-KZT-J (Total); 707267-Wovhg LDL-P; 780957-RUH Size; 164332-BJ-QM Scorewas developed and its performance characteristics determinedby [employer]. It has not been cleared or approved by the Foodand Drug Administration.PATIENT WAS FASTINGPERFORMED BY: [employer] [address] [id number] BY: [email or web address] Chibvx5524 [facility] [id number] MCH (RBC) [Entitic mass] 29.3 pg Normal 26.6-33.0 [facility]; [facility] Work Phone: Comment on above: Test(s) 362407-PQR-T ; 156269-AFZ-W; 119295-Hqiaxdfbvghhj; 091779-Cxfzmtjxrrl, Total; 185117-FFB-P (Total); 557757-Gaper LDL-P; 752523-CQF Size; 847135-UO-AB Scorewas developed and its performance characteristics determinedby [employer]. It has not been cleared or approved by the Foodand Drug Administration.PATIENT WAS FASTINGPERFORMED BY: [employer] [address] [id number] BY: [employer]70 [facility] [id number] MCHC (RBC) [Mass/Vol] 33.3 g/dL Normal 31.5-35.7 [facility]; [facility] Work Phone: Comment on above: Test(s) 848730-JHZ-E ; 971070-CCO-L; 651652-Nlddhjuvzmaev; 082225-Jwyvvkjcffi, Total; 644049-DOD-R (Total); 610821-Mbuby LDL-P; 057281-BSA Size; 579327-TU-PZ Scorewas developed and its performance characteristics determinedby [employer]. It has not been cleared or approved by the Foodand Drug Administration.PATIENT WAS FASTINGPERFORMED BY: Azonia[address] [id number] BY: ImmuRx6370 [facility] [id number] MCV (RBC) [Entitic vol] 88 fL Normal 79-97 C [facility] Internal Medicine; [facility] Work Phone: Comment on above: Test(s) 028728-GNF-Z ; 437013-LVS-L; 803283-Yzluvtbsohweb; 895508-Zjpwlbiviez, Total; 023767-YGD-I (Total); 396268-Uqolt LDL-P; 386986-MZV Size; 019129-PQ-CL Scorewas developed and its performance characteristics determinedby [employer]. It has not been cleared or approved by the Foodand Drug Administration.PATIENT WAS FASTINGPERFORMED BY: Azonia[address] [id number] BY: Feedjitlin6370 [facility] [id number] Monocytes (Bld) [#/Vol] 0.3 {x10E3/uL} Normal 0.1-0.9 [facility]; [facility] Work Phone: Comment on above: Test(s) 020991-TSQ-J ; 090631-GEW-L; 605068-Lzmdvhkvzpami; 723586-Dpiaijeghly, Total; 405278-ZRO-F (Total); 518837-Xuhra LDL-P; 549449-UCN Size; 184284-KF-WL Scorewas developed and its performance characteristics determinedby [employer]. It has not been cleared or approved by the Foodand Drug Administration.PATIENT WAS FASTINGPERFORMED BY: iWarda[address] [id number] BY: CodeSquare Zyzxgm0738 [facility] [id number] Monocytes (Bld) [#/Vol] 0.3 10*3/uL Normal 0.1-0.9 [facility]; [facility] Work Phone: Comment on above: Test(s) 599770-NTP-Y ; 757487-YUS-R; 432309-Rznfpgurrnjev; 646905-Qrmgzptyfyu, Total; 546546-AJC-L (Total); 245694-Vyegg LDL-P; 022820-ZXX Size; 662831-ZG-OA Scorewas developed and its performance characteristics determinedby [employer]. It has not been cleared or approved by the Foodand Drug Administration.PATIENT WAS FASTINGPERFORMED BY: [employer] [address] [id number] BY: [employer]70 [employer] Platform9 SystemsCaroMont Regional Medical Center [facility] [place] [id number] Monocytes/100 WBC (Bld) 7 % Normal C [facility]; [facility] Work Phone: Comment on above: Test(s) 319137-QEO-K ; 072341-SRL-I; 808927-Fdqaigfufddhm; 890303-Nlzqgeqvjyy, Total; 568671-OYQ-Y (Total); 614135-Ytpem LDL-P; 546510-GEX Size; 601882-HP-QQ Scorewas developed and its performance characteristics determinedby [employer]. It has not been cleared or approved by the Foodand Drug Administration.PATIENT WAS FASTINGPERFORMED BY: [employer] [address] [id number] BY: Feedjitlin6370 [facility] [id number] Neutrophils (Bld) [#/Vol] 2.4 {x10E3/uL} Normal 1.4-7.0 [facility]; [facility] Work Phone: Comment on above: Test(s) 571703-SBC-U ; 764566-CEZ-L; 763040-Xvwwinpqjuhsb; 342787-Qfdjdmsjoqu, Total; 418809-GQT-O (Total); 181350-Orpzb LDL-P; 192509-XLV Size; 469747-YI-LG Scorewas developed and its performance characteristics determinedby [employer]. It has not been cleared or approved by the Foodand Drug Administration.PATIENT WAS FASTINGPERFORMED BY: Azonia[address] [id number] BY: [employer]70 [facility] [id number] Neutrophils (Bld) [#/Vol] 2.4 10*3/uL Normal 1.4-7.0 [facility]; [facility] Work Phone: Comment on above: Test(s) 882167-RYX-W ; 486100-BTG-Q; 222266-Gcqgmmfpyjtwn; 990376-Djdpgweufaf, Total; 040026-ICA-U (Total); 039877-Emryj LDL-P; 656151-MFJ Size; 111422-TY-OL Scorewas developed and its performance characteristics determinedby [employer]. It has not been cleared or approved by the Foodand Drug Administration.PATIENT WAS FASTINGPERFORMED BY: Azonia[address] [id number] BY: ImmuRx6370 [facility] [id number] Neutrophils/100 WBC (Bld) 52 % Normal [facility]; [facility] Work Phone: Comment on above: Test(s) 422348-HEC-Q ; 293174-BPQ-O; 125481-Sxsozkjofxhuh; 044581-Jkeyppnllpq, Total; 094856-UZH-J (Total); 601578-Drvdc LDL-P; 608730-CZT Size; 092455-ZX-IU Scorewas developed and its performance characteristics determinedby [employer]. It has not been cleared or approved by the Foodand Drug Administration.PATIENT WAS FASTINGPERFORMED BY: [employer] [address] [id number] BY: Code[employer] Bfpxzo4008 [place] [facility] 911[facility] [place] [id number] Platelets (Bld) [#/Vol] 263 {x10E3/uL} Normal 150-450 [facility]; [facility] Work Phone: Comment on above: Test(s) 183169-TDF-J ; 352585-SWN-X; 215336-Ugbaunpwpnyva; 495124-Kthpmnuwihi, Total; 650487-MZV-W (Total); 641397-Whlbu LDL-P; 752479-IZV Size; 667590-CE-RB Scorewas developed and its performance characteristics determinedby [employer]. It has not been cleared or approved by the Foodand Drug Administration.PATIENT WAS FASTINGPERFORMED BY: [employer] [address] [id number] BY: ImmuRx6370 [employer] Platform9 SystemsCaroMont Regional Medical Center [facility] [place] [id number] Platelets (Bld) [#/Vol] 263 10*3/uL Normal 150-450 [facility]; [facility] Work Phone: Comment on above: Test(s) 807702-KDX-S ; 002270-RNP-Y; 488317-Ocfepophazevp; 068689-Uinjtuazolj, Total; 967968-CDH-C (Total); 769407-Aztlw LDL-P; 983031-XLO Size; 826261-HG-HY Scorewas developed and its performance characteristics determinedby [employer]. It has not been cleared or approved by the Foodand Drug Administration.PATIENT WAS FASTINGPERFORMED BY: [employer] [address] [id number] BY: [email or web address] Ixgksr8889 [facility] [id number] RBC (Bld) [#/Vol] 4.92 {x10E6/uL} Normal 4.14-5.80 Co mprehensive Internal Medicine; [facility] Work Phone: Comment on above: Test(s) 776580-XYU-N ; 760798-GEW-Y; 477971-Eyvdapamkmmaa; 206428-Mkujoztemmy, Total; 779536-HWU-S (Total); 184685-Ssjsr LDL-P; 313939-KLT Size; 427537-XE-CA Scorewas developed and its performance characteristics determinedby [employer]. It has not been cleared or approved by the Foodand Drug Administration.PATIENT WAS FASTINGPERFORMED BY: Azonia[address] [id number] BY: [employer]70 [facility] [id number] RBC (Bld) [#/Vol] 4.92 10*6/uL Normal 4.14-5.80 [facility] Internal [facility]; [facility] Work Phone: Comment on above: Test(s) 515091-TGM-O ; 636877-RPP-K; 719935-Ydvpsdwvsubvj; 171457-Igledodnybr, Total; 068275-QMU-B (Total); 139656-Kcwtk LDL-P; 993502-UWW Size; 970376-JL-ZY Scorewas developed and its performance characteristics determinedby [employer]. It has not been cleared or approved by the Foodand Drug Administration.PATIENT WAS FASTINGPERFORMED BY: Azonia[address] [id number] BY: ImmuRx6370 [facility] [id number] WBC (Bld) [#/Vol] 4.5 {x10E3/uL} Normal 3.4-10.8 [facility] Internal Medicine; [facility] Work Phone: Comment on above: Test(s) 559558-POC-Y ; 466733-KNX-I; 309956-Eshbctmdqpxnn; 251271-Qjygfhggwfp, Total; 612982-RWS-F (Total); 099834-Tonor LDL-P; 358235-FBE Size; 026813-TR-OI Scorewas developed and its performance characteristics determinedby [employer]. It has not been cleared or approved by the Foodand Drug Administration.PATIENT WAS FASTINGPERFORMED BY: [employer] [address] [id number] BY: CodeSquareRobert Wood Johnson University HospitalPfsuxl9215 [facility] [id number] WBC (Bld) [#/Vol] 4.5 10*3/uL Normal 3.4-10.8 [facility] Internal Medicine; [facility] Work Phone: Comment on above: Test(s) 175692-PRX-C ; 964172-POS-P; 110817-Jqccndjfxnmeb; 848098-Hyzkdqfcfnp, Total; 569858-TNJ-M (Total); 726916-Amkrn LDL-P; 866466-ZQO Size; 007400-ZE-SM Scorewas developed and its performance characteristics determinedby [employer]urch. It has not been cleared or approved by the Foodand Drug Administration.PATIENT WAS FASTINGPERFORMED BY: [employer] [address] [id number] BY: CiiNOW Yjpqbf3194 [facility] [id number] HGB A1C (09249)Ordered By: Annette ystem Collection Systems Technician on 11-22-2020 HbA1c (Bld) [Mass fraction] 5.7 % Abnormal 4.8-5.6 [facility]; [facility] Work Phone: Comment on above: . Prediabetes: 5.7 - 6.4 Diabetes: >6.4 Glycemic control for adults with diabetes: <7.0 Test(s) 857211-SMF-C ; 238307-PQT-U; 116411-Eosuvpfjuhibz; 696424-Gzeahulodhl, Total; 446673-LSM-W (Total); 586767-Noxtl LDL-P; 924695-XBY Size; 176820-ON-LK Scorewas developed and its performance characteristics determinedby [employer]urch. It has not been cleared or approved by the Foodand Drug Administration.PATIENT WAS FASTINGPERFORMED BY: [employer] [address] [id number] BY: ImmuRx6370 [facility] [id number] METABOLIC PANEL, COMPREHENSI VE (58450)Ordered By: Inspector Crystal on 11-22-2020 Albumin [Mass/Vol] 4.4 g/dL Normal 3.8-4.9 [facility]; [facility] Work Phone: Comment on above: Test(s) 785791-CJX-Q ; 479206-QCL-U; 173877-Bfmwpvlycdwmg; 146890-Awamurhdytq, Total; 020497-EVK-W (Total); 668906-Jlzqp LDL-P; 197973-XKD Size; 928225-CO-XJ Scorewas developed and its performance characteristics determinedby [employer]. It has not been cleared or approved by the Foodand Drug Administration.PATIENT WAS FASTINGPERFORMED BY: [employer] [address] [id number] BY: ImmuRx6370 [facility] [id number] Albumin/Globulin [Mass ratio] 1.8 {ratio} Normal 1.2-2.2 [facility]; [facility] Work Phone: Comment on above: Test(s) 108199-RVD-I ; 339636-PCT-P; 793846-Sggzdvihlsdzg; 615717-Wzcsjxbuuyt, Total; 705429-XLC-L (Total); 200828-Ejich LDL-P; 906698-BSP Size; 663619-XM-LQ Scorewas developed and its performance characteristics determinedby [employer]. It has not been cleared or approved by the Foodand Drug Administration.PATIENT WAS FASTINGPERFORMED BY: [employer] Veeyxmgzdk6359 [facility] [id number] BY: ImmuRx6370 [facility] [id number] ALP [Catalytic activity/Vol] 64 [iU]/L Normal 39-117 [facility]; [facility] Work Phone: Comment on above: Test(s) 108930-CWK-D ; 029953-VZG-Q; 549141-Jrzpvaptmjqbe; 651392-Ooqdhcyqeyv, Total; 600148-NQJ-J (Total); 454670-Vchly LDL-P; 433839-YFD Size; 658013-WU-AU Scorewas developed and its performance characteristics determinedby [employer]. It has not been cleared or approved by the Foodand Drug Administration.PATIENT WAS FASTINGPERFORMED BY: [employer] [address] [id number] BY: Colppylin6370 [facility] [id number] ALP [Catalytic activity/Vol] 64 U/L Normal 39-117 [facility]; [facility] Work Phone: Comment on above: Test(s) 464232-XWL-K ; 666961-ONX-I; 335058-Jjvslntafbwij; 251047-Zdscmjobzub, Total; 177629-SPU-Y (Total); 917319-Dvxtx LDL-P; 692168-SQE Size; 434440-KV-XU Scorewas developed and its performance characteristics determinedby [employer]. It has not been cleared or approved by the Foodand Drug Administration.PATIENT WAS FASTINGPERFORMED BY: [employer] [address] [id number] BY: [email or web address] Jycxvt4086 [facility] [id number] ALT [Catalytic activity/Vol] 26 [iU]/L Normal 0-44 [facility]; [facility] Work Phone: Comment on above: Test(s) 850776-USW-X ; 544345-QQG-Q; 387113-Slsioxtfxihjc; 621458-Hitubidpbwn, Total; 043518-TUT-C (Total); 375030-Kowtk LDL-P; 448669-UMQ Size; 217739-IK-RL Scorewas developed and its performance characteristics determinedby [employer]. It has not been cleared or approved by the Foodand Drug Administration.PATIENT WAS FASTINGPERFORMED BY: [employer] [address] [id number] BY: Feedjitlin6370 [facility] [id number] ALT [Catalytic activity/Vol] 26 U/L Normal 0-44 [facility]; [facility] Work Phone: Comment on above: Test(s) 946518-CJS-W ; 810054-CMX-P; 926096-Fpzwaszshlhds; 369954-Kkxqzymfltf, Total; 022650-YTS-Q (Total); 214057-Vwuyp LDL-P; 614953-LCS Size; 976034-MH-RY Scorewas developed and its performance characteristics determinedby [employer]. It has not been cleared or approved by the Foodand Drug Administration.PATIENT WAS FASTINGPERFORMED BY: [employer] [address] [id number] BY: [email or web address] Dlxmbh1108 [facility] [id number] AST [Catalytic activity/Vol] 19 [iU]/L Normal 0-40 [facility]; [facility] Work Phone: Comment on above: Test(s) 051609-HWS-P ; 041787-GFI-A; 813681-Odjryypudzidq; 475247-Vbuarbnkiea, Total; 889439-FYE-D (Total); 683706-Bhcur LDL-P; 463497-ZBR Size; 555996-LM-TU Scorewas developed and its performance characteristics determinedby [employer]. It has not been cleared or approved by the Foodand Drug Administration.PATIENT WAS FASTINGPERFORMED BY: CodeSquare[address] [id number] BY: CodeSquareRobert Wood Johnson University HospitalQttcos5970 [facility] [id number] AST [Catalytic activity/Vol] 19 U/L Normal 0-40 [facility]; [facility] Work Phone: Comment on above: Test(s) 663987-UWH-C ; 012729-VCG-Z; 247588-Turpgnwmvkgje; 210966-Bbtxztmcsiz, Total; 568102-VUZ-E (Total); 375024-Knmpm LDL-P; 580831-YNX Size; 609459-CS-ND Scorewas developed and its performance characteristics determinedby [employer]. It has not been cleared or approved by the Foodand Drug Administration.PATIENT WAS FASTINGPERFORMED BY: CodeSquare[address] [id number] BY: [employer] Gdmrsc9556 [facility] [id number] Bilirubin [Mass/Vol] 0.4 mg/dL Normal 0.0-1.2 [facility] Internal Medicine; [facility] Medicine Work Phone: Comment on above: Test(s) 993384-GCN-X ; 313564-FLS-Y; 003695-Jawbopgucvhrk; 968148-Fyjdnflcjai, Total; 979621-UQM-M (Total); 905443-Ambah LDL-P; 113448-IIQ Size; 426559-HE-OC Scorewas developed and its performance characteristics determinedby [employer]. It has not been cleared or approved by the Foodand Drug Administration.PATIENT WAS FASTINGPERFORMED BY: [employer] [address] [id number] BY: Code[employer] Ramwel8169 [facility] [id number] Calcium [Mass/Vol] 9.5 mg/dL Normal 8.6-10.2 [facility] Internal Medicine; [facility] Work Phone: Comment on above: Test(s) 695997-ZHL-G ; 559031-EDH-K; 669127-Luconoetubtnw; 538022-Wnbtisswbcq, Total; 499969-PVO-H (Total); 971550-Bdcmo LDL-P; 438485-VJL Size; 763288-KO-VC Scorewas developed and its performance characteristics determinedby [employer]. It has not been cleared or approved by the Foodand Drug Administration.PATIENT WAS FASTINGPERFORMED BY: CodeSquare[address] [id number] BY: CodeSquareRobert Wood Johnson University HospitalUwtpyv5836 [facility] [id number] Chloride [Moles/Vol] 103 mmol/L Normal 96-106 Comp rehensive Internal Medicine; [facility] Work Phone: Comment on above: Test(s) 621476-PAS-E ; 031813-OOH-Z; 864815-Ewbjszorjzkcn; 864729-Usqssrrmwbs, Total; 450181-IWH-B (Total); 282219-Kuydx LDL-P; 400153-OMK Size; 260551-OM-VW Scorewas developed and its performance characteristics determinedby [employer]. It has not been cleared or approved by the Foodand Drug Administration.PATIENT WAS FASTINGPERFORMED BY: [employer] [address] [id number] BY: [employer]70 [place] [facility] 911[facility] [id number] CO2 [Moles/Vol] 27 mmol/L Normal 20-29 [facility] Internal Medicine; [facility] Work Phone: Comment on above: Test(s) 925152-BHQ-W ; 098937-XDL-A; 816689-Jtnuafhixtrbr; 188672-Yluyyomvofr, Total; 358044-JMM-L (Total); 447125-Xfpqw LDL-P; 154225-EPE Size; 746612-BY-NR Scorewas developed and its performance characteristics determinedby [employer]. It has not been cleared or approved by the Foodand Drug Administration.PATIENT WAS FASTINGPERFORMED BY: [employer] [address] [id number] BY: ImmuRx6370 [facility] [id number] Creatinine [Mass/Vol] 0.92 mg/dL Normal 0.76-1.27 [facility] Internal Medicine; [facility] Work Phone: Comment on above: Test(s) 028961-WXL-J ; 052829-CFY-V; 300367-Duxlyrkznqmpl; 384371-Keplimagwjg, Total; 725652-OUS-F (Total); 491409-Llsmb LDL-P; 859684-KKR Size; 245687-FF-NX Scorewas developed and its performance characteristics determinedby [employer]. It has not been cleared or approved by the Foodand Drug Administration.PATIENT WAS FASTINGPERFORMED BY: [employer] [address] [id number] BY: [employer] Irzxaj9307 [facility] [id number] GFR/1.73 sq M predicted among blacks CKD-EPI (S/P/Bld) [Vol rate/Area] 104 mL/min/1.73 Normal [facility]; [facility] Work Phone: Comment on above: Test(s) 814879-GZX-A ; 631910-MXW-X; 732827-Jmehlunjxgywq; 514030-Raferjjjozy, Total; 983396-PYT-Y (Total); 930609-Mmuuv LDL-P; 618029-TZN Size; 731528-YP-RF Scorewas developed and its performance characteristics determinedby [employer]. It has not been cleared or approved by the Foodand Drug Administration.PATIENT WAS FASTINGPERFORMED BY: [employer] [address] [id number] BY: ImmuRx6370 [facility] [id number] GFR/1.73 sq M predicted among non-blacks CKD-EPI (S/P/Bld) [Vol rate/Area] 90 mL/min/1.73 Normal [facility]; [facility] Work Phone: Comment on above: Test(s) 501042-GSH-B ; 574909-QRV-Y; 953480-Mzwqaucibpydy; 639901-Akkzddwyxpp, Total; 233157-JSW-Q (Total); 740653-Jkcpn LDL-P; 188340-SFZ Size; 154407-UH-EE Scorewas developed and its performance characteristics determinedby [employer]. It has not been cleared or approved by the Foodand Drug Administration.PATIENT WAS FASTINGPERFORMED BY: [employer] [address] [id number] BY: [employer] Vfenmk5441 [facility] [id number] Globulin (S) [Mass/Vol] 2.4 g/dL Normal 1.5-4.5 [facility] Internal Medicine; [facility] Work Phone: Comment on above: Test(s) 347515-IMB-I ; 249743-SDX-B; 958141-Xewxjrodbzddx; 666698-Cymxidgtmlu, Total; 571875-AGV-J (Total); 532229-Qdovr LDL-P; 633795-BRW Size; 177602-IP-AW Scorewas developed and its performance characteristics determinedby [employer]. It has not been cleared or approved by the Foodand Drug Administration.PATIENT WAS FASTINGPERFORMED BY: [employer] [address] [id number] BY: [employer]70 KODALifeCare Hospitals [facility] [id number] Glucose [Mass/Vol] 96 mg/dL Normal 65-99 [facility] Internal Medicine; [facility] Work Phone: Comment on above: Test(s) 586830-GQL-C ; 352865-ZPS-I; 116243-Rhsoxoizzdohi; 034210-Fhhjtvycytz, Total; 343680-HOX-C (Total); 439047-Afcss LDL-P; 695838-KTE Size; 042317-IA-XL Scorewas developed and its performance characteristics determinedby [employer]. It has not been cleared or approved by the Foodand Drug Administration.PATIENT WAS FASTINGPERFORMED BY: [employer] [address] [id number] BY: ImmuRx6370 [facility] [id number] Potassium [Moles/Vol] 4.6 mmol/L Normal 3.5-5.2 [facility]; [facility] Work Phone: Comment on above: Test(s) 221739-QDS-U ; 415831-ZYN-A; 307572-Tmtgbwzpbdisb; 570282-Powmhfbccgz, Total; 273751-NJZ-P (Total); 165104-Mzcjr LDL-P; 543307-XRK Size; 981576-IH-SZ Scorewas developed and its performance characteristics determinedby [employer]. It has not been cleared or approved by the Foodand Drug Administration.PATIENT WAS FASTINGPERFORMED BY: iWarda[address] [id number] BY: CodeSquareSan Juan Regional Medical CenterOtscmq0919 [employer] Platform9 SystemsCaroMont Regional Medical [facility] [id number] Protein [Mass/Vol] 6.8 g/dL Normal 6.0-8.5 [facility] Internal Medicine; [facility] Work Phone: Comment on above: Test(s) 469431-JZV-M ; 421943-OBO-Q; 802692-Fogntxienewfo; 088913-Ptzfzvwitdi, Total; 608917-GWL-K (Total); 888133-Yrtvd LDL-P; 282257-GDW Size; 513678-VB-ZC Scorewas developed and its performance characteristics determinedby [employer]. It has not been cleared or approved by the Foodand Drug Administration.PATIENT WAS FASTINGPERFORMED BY: [employer] [address] [id number] BY: [employer] Fajfge0101 [facility] [id number] Sodium [Moles/Vol] 140 mmol/L Normal 134-144 [facility] Internal Medicine; [facility] Work Phone: Comment on above: Test(s) 025088-PXA-I ; 228513-BUA-C; 223661-Dqtdxaixsoyxy; 382724-Plvozscartn, Total; 909430-UDX-Y (Total); 742600-Cecic LDL-P; 188799-EDR Size; 464923-IB-FC Scorewas developed and its performance characteristics determinedby [employer]. It has not been cleared or approved by the Foodand Drug Administration.PATIENT WAS FASTINGPERFORMED BY: iWarda[address] [id number] BY: CodeSquareRobert Wood Johnson University HospitalQjxxbr8365 [facility] [id number] Urea nitrogen [Mass/Vol] 16 mg/dL Normal 8-27 [facility]; [facility] Work Phone: Comment on above: Test(s) 694420-SGT-V ; 153847-VOG-L; 149091-Hkwvvcjfpanps; 709910-Mvppyvdvale, Total; 818864-FEO-W (Total); 657670-Qhcsc LDL-P; 099481-DTJ Size; 218694-KU-SX Scorewas developed and its performance characteristics determinedby [employer]. It has not been cleared or approved by the Foodand Drug Administration.PATIENT WAS FASTINGPERFORMED BY: [employer] [address] [id number] BY: [employer]70 [facility] [id number] Urea nitrogen/Creatinine [Mass ratio] 17 mg/mg Normal 10-24 [facility]; [facility] Work Phone: Comment on above: Test(s) 171897-HBD-F ; 669114-SUD-O; 221050-Omsmomvntxzxq; 211032-Pvymixwsumq, Total; 174607-OPL-A (Total); 191146-Eplel LDL-P; 325094-MDP Size; 385679-ZK-GV Scorewas developed and its performance characteristics determinedby [employer]. It has not been cleared or approved by the Foodand Drug Administration.PATIENT WAS FASTINGPERFORMED BY: [employer] [address] [id number] BY: ImmuRx6370 [facility] [id number] MICROALBUMINOrdered By: Syst em Collection Systems Technician on 11-22-2020 Albumin DL <= 20 mg/L (U) [Mass/Vol] mg/dL Normal [facility]; [facility] Work Phone: Comment on above: Test(s) 800361-XVD-Q ; 361876-IFX-O; 084312-Ngsnohwoniebr; 979542-Xglypopyldg, Total; 378070-LXL-E (Total); 858405-Uqvyh LDL-P; 138386-UEZ Size; 861835-ZO-IV Scorewas developed and its performance characteristics determinedby [employer]urch. It has not been cleared or approved by the Foodand Drug Administration.PATIENT WAS FASTINGPERFORMED BY: [employer] [address] [id number] BY: [employer] Rwcpsa7784 [employer] Platform9 SystemsCaroMont Regional Medical Center [facility] [place] [id number] Albumin DL <= 20 mg/L (U) [Mass/Vol] mg/dL Normal [facility]; [facility] Work Phone: Comment on above: Test(s) 579199-TRC-C ; 687007-BFF-E; 626765-Sbisxhtmyqgik; 445510-Lzonujhpqoa, Total; 285185-AWC-T (Total); 281549-Asjip LDL-P; 271232-CTG Size; 978276-ZO-TP Scorewas developed and its performance characteristics determinedby [employer]. It has not been cleared or approved by the Foodand Drug Administration.PATIENT WAS FASTINGPERFORMED BY: [employer] [address] [id number] BY: [employer]70 [facility] [id number] Albumin/Creatinine (U) [Mass ratio] <6 Normal 0-29 [facility]; [facility] Work Phone: Comment on above: Normal: 0 - 29 Moder ately increased: 30 - 300 Severely increased: >300 Test(s) 309506-PEH-K ; 549423-BAE-B; 917868-Hhdyqhydfvnfi; 569279-Feppsgalebu, Total; 007778-VHZ-Z (Total); 857014-Iypvb LDL-P; 098081-UMM Size; 407795-RX-RM Scorewas developed and its performance characteristics determinedby [employer]. It has not been cleared or approved by the Foodand Drug Administration.PATIENT WAS FASTINGPERFORMED BY: [employer] [address] [id number] BY: Feedjitlin6370 [facility] [id number] Creatinine (U) [Mass/Vol] 47.2 mg/dL Normal [facility]; [facility] Work Phone: Comment on above: Test(s) 421932-QDO-C ; 336138-OIP-Z; 597602-Vfawgvdrkynyu; 020466-Qzsextqaitn, Total; 581369-LEW-N (Total); 625771-Rgjjs LDL-P; 269470-GCU Size; 656319-LG-TV Scorewas developed and its performance characteristics determinedby [employer]. It has not been cleared or approved by the Foodand Drug Administration.PATIENT WAS FASTINGPERFORMED BY: [employer] [address] [id number] BY: CiiNOW Zxurej3569 [facility] [id number] NMR Profile (06230)Ordered B y: Inspector Crystal on 11-22-2020 Cholesterol [Mass/Vol] 235 mg/dL Abnormal 100-199 Co [facility] Internal Medicine; [facility] Work Phone: Comment on above: Test(s) 986808-RLV-O ; 447339-PEG-E; 528086-Uoprfobfltdbu; 748029-Xmksvkjngsc, Total; 447195-RQI-R (Total); 459338-Kokpx LDL-P; 992911-DAM Size; 719385-UF-BS Scorewas developed and its performance characteristics determinedby [employer]. It has not been cleared or approved by the Foodand Drug Administration.PATIENT WAS FASTINGPERFORMED BY: [employer] [address] [id number] BY: ImmuRx6370 [facility] [id number] Lipoprotein.alpha [Moles/Vol] 37.5 umol/L Normal [facility]; [facility] Work Phone: Comment on above: Test(s) 437381-UNO-Z ; 633582-JTU-P; 924382-Mzyoibnimqwlh; 236910-Xclpkwzhedx, Total; 869196-CQS-I (Total); 213003-Irluc LDL-P; 892025-WFZ Size; 047687-KH-PT Scorewas developed and its performance characteristics determinedby [employer]. It has not been cleared or approved by the Foodand Drug Administration.PATIENT WAS FASTINGPERFORMED BY: BN LabCo[address] [id number] BY: CodeSquareRobert Wood Johnson University HospitalEtklnr2661 [facility] [id number] Lipoprotein.beta.subpar ticle [Entitic length] 21.3 nm Normal Courtneyen roselyn Internal Medicine; [facility] Work Phone: Comment on above: INTERPRETATIVE INFORMATION PARTICLE CONCENTRATION AND SIZE <--Lower CVD Risk Higher CVD Risk--> LDL AND HDL PARTICLES Percentile in Reference Population HDL-P (total) High 75th 50th 25th Low >34.9 34.9 30.5 26.7 <26.7 . Small LDL-P Low 25th 50th 75th High <117 117 527 839 >839 . LDL Size <-Large (Pattern A)-> <-Small (Pattern B)-> 23.0 20.6 20.5 19.0 Smal l LDL-P and LDL Size are associated with CVD risk, but not afterLDL-P is taken into account. Test(s) 622844-QCZ-G ; 642137-GHU-R; 174504-Nuelwoyzewugz; 264328-Jcnobvqqtlf, Total; 435053-RSK-X (Total); 016991-Smpoj LDL-P; 889190-CMX Size; 131578-SY-PX Scorewas developed and its performance characteristics determinedby [employer]. It has not been cleared or approved by the Foodand Drug Administration.PATIENT WAS FASTINGPERFORMED BY: CiiNOW [address] [id number] BY: CodeSquareRobert Wood Johnson University HospitalLtgstg1307 [facility] [id number] Lipoprotein.beta.subpar ticle [Moles/Vol] 1803 nmol/L Abnormal [facility]; [facility] Work Phone: Comment on above: Low < 1000 Moderate 1000 - 1299 Borderline-High 1300 - 1599 High 1600 - 2000 Very High > 2000 Test(s) 363998-ITY-Z ; 332046-ENL-W; 504571-Gvwgyiprbrxji; 082994-Mucwxwyckfg, Total; 003621-CUU-T (Total); 422426-Jybok LDL-P; 852685-EYN Size; 218845-SK-YG Scorewas developed and its performance characteristics determinedby [employer]. It has not been cleared or approved by the Foodand Drug Administration.PATIENT WAS FASTINGPERFORMED BY: Azonia[address] [id number] BY: [employer]70 [facility]ALifeCare [facility] [id number] Lipoprotein.beta.subpar ticle.small [Moles/Vol] 534 nmol/L Abnormal [facility]; [facility] Work Phone: Comment on above: Test(s) 087789-DVS-V ; 141270-XLY-F; 461870-Sffhqcmjwtffb; 724553-Flpedsddlnd, Total; 152777-MZP-L (Total); 900142-Ifqfe LDL-P; 306388-QKX Size; 113003-PI-AT Scorewas developed and its performance characteristics determinedby [employer]. It has not been cleared or approved by the Foodand Drug Administration.PATIENT WAS FASTINGPERFORMED BY: Azonia[address] [id number] BY: ImmuRx6370 [place] [facility] 911[facility] [place] [id number] Triglyceride [Mass/Vol] 92 mg/dL Normal 0-149 C omprehensive [facility]; [facility] Work Phone: Comment on above: Test(s) 585033-WQM-X ; 002725-CNE-H; 871724-Jxisthzjqawjv; 640147-Qlzkvnazzqw, Total; 617026-HBU-O (Total); 288922-Aurtc LDL-P; 656166-EHU Size; 105477-ZP-PJ Scorewas developed and its performance characteristics determinedby [employer]. It has not been cleared or approved by the Foodand Drug Administration.PATIENT WAS FASTINGPERFORMED BY: iWarda[address] [id number] BY: CodeSquare Imtdsl1339 [place] [facility] 911[facility] [place] [id number] NMR Profile (33167) 59 mg/dL Normal [facility]; [facility] Work Phone: Comment on above: Test(s) 276517-XYA-E ; 379163-DUW-L; 349349-Vrikqvfyxsurn; 715943-Pthsbeiyscw, Total; 429442-SIH-Z (Total); 475178-Djqpx LDL-P; 789071-QHX Size; 584880-NX-GW Scorewas developed and its performance characteristics determinedby [employer]. It has not been cleared or approved by the Foodand Drug Administration.PATIENT WAS FASTINGPERFORMED BY: [employer] [address] [id number] BY: [employer]70 [place] [facility] 911[facility] [place] [id number] NMR Profile (84398) 160 mg/dL Abnormal 0-99 [facility] Internal Medicine; [facility] Work Phone: Comment on above: . Optimal < 100 Abov e optimal 100 - 129 Borderline 130 - 159 High 160 - 189 Very high > 189 . Test(s) 674888-EQF-Y ; 755078-WAG-N; 950489-Wnbrusnmwmyot; 879410-Fpkhcsznuce, Total; 667989-GQU-U (Total); 793524-Qkrkt LDL-P; 449968-RDP Size; 563086-VR-TA Scorewas developed and its performance characteristics determinedby [employer]. It has not been cleared or approved by the Foodand Drug Administration.PATIENT WAS FASTINGPERFORMED BY: iWarda[address] [id number] BY: [employer] Fgvjye2608 [facility] [id number] 2019 Novel Coronavirus (COVI D-19), TRISTAN ([id number])Ordered By: Inspector Crystal on 08-25-2020 2019 Novel Coronavirus (COVID-19), TRISTAN ([id number]) Detected Abnormal Comprehe nsive Internal Medicine; [facility] Work Phone: Comment on above: Client Requested Fla gThis nucleic acid amplification test was developed and its performancecharacteristics determined by mYwindow. Nucleic acidamplification tests include PCR and TMA. This test has not been FDAcleared or approved. This test has been authorized by FDA under anEmergency Use Authorization (EUA). This test is only authorized forthe duration of time the declaration that circumstances existjustifying the authorization of the emergency use of in vitrodiagnostic tests for detection of SARS-CoV-2 virus and/or diagnosisof COVID-19 infection under section 564(b)(1) of the Act, 21 U.S.C.360bbb-3(b) (1), unless the authorization is terminated or revokedsooner.When diagnostic testing is negative, the possibility of a falsenegative result should be considered in the context of a patient'srecent exposures and the presence of clinical signs and symptomsconsistent with COVID-19. An individual without symptoms of COVID-19and who is not shedding SARS-CoV-2 virus would expect to have anegative (not detected) result in this assay. PATIENT NOT FASTINGP ERFORMED BY: ALEX [facility] XAI6540 [facility] [id number] 2019 Novel Coronavirus (COVID-19), TRISTAN ([id number]) Detected Abnormal Comprehe nsive Internal Medicine; [facility] Work Phone: Comment on above: Client Requested Fla gThis nucleic acid amplification test was developed and its performancecharacteristics determined by mYwindow. Nucleic acidamplification tests include PCR and TMA. This test has not been FDAcleared or approved. This test has been authorized by FDA under anEmergency Use Authorization (EUA). This test is only authorized forthe duration of time the declaration that circumstances existjustifying the authorization of the emergency use of in vitrodiagnostic tests for detection of SARS-CoV-2 virus and/or diagnosisof COVID-19 infection under section 564(b)(1) of the Act, 21 U.S.C.360bbb-3(b) (1), unless the authorization is terminated or revokedsooner.When diagnostic testing is negative, the possibility of a falsenegative result should be considered in the context of a patient'srecent exposures and the presence of clinical signs and symptomsconsistent with COVID-19. An individual without symptoms of COVID-19and who is not shedding SARS-CoV-2 virus would expect to have anegative (not detected) result in this assay. PATIENT NOT FASTINGP ERFORMED BY: CodeSquare GJK2796 [facility] [id number] Inhouse FLU A+B DIRECT AG, ( RAPID) ([id number])on 08-25-2020 FLUAV+FLUBV Ag Ql (Unsp spec) Negative Normal [facility] Work Phone: Inhouse FLU A+B DIRECT AG, ( RAPID) ([id number])Ordered By: Bethanie Watson on 08-25-2020 FLUAV+FLUBV Ag Ql (Unsp spec) Negative Normal [facility]; [facility] Work Phone: NMR Profile (68061)Ordered B y: Inspector Crystal on 02-27-2020 Cholesterol [Mass/Vol] 157 mg/dL Normal 100-199 Co mprehensive [facility] Work Phone: Comment on above: Test(s) 754223-OKV-K ; 655266-KGY-K; 073458-GDJ-U; 584714-Jkcnroxzmpmvo; 311762-Cololhxqtbj, Total; 591752-IQX-H (Total);916364-Yljwp LDL-P; 070608-SWW Size; 721200-CI-LZ Scorewas developed and its performance characteristics determinedby CiiNOW. It has not been cleared or approved by the Foodand Drug Administration.PATIENT WAS FASTINGPERFORMED BY: LabKevin Ville [address] [facility] [id number] Lipoprotein.alpha [Moles/Vol] 33.0 umol/L Normal [facility] Work Phone: Comment on above: Test(s) 841210-IBL-Q ; 677163-FFZ-E; 167949-AVL-K; 961407-Fiwdaeiddraeo; 703509-Utfblyuackn, Total; 135434-THW-N (Total);440785-Neeqz LDL-P; 983311-FTO Size; 214074-CZ-YC Scorewas developed and its performance characteristics determinedby LabCo. It has not been cleared or approved by the Foodand Drug Administration.PATIENT WAS FASTINGPERFORMED BY: LabKevin V[place] [address] [facility] [id number] Lipoprotein.beta.subpar ticle [Entitic length] 20.9 nm Normal [facility] Internal Medicine Work Phone: Comment on above: INTERPRETATIVE INFORMATION PARTICLE CONCENTRATION AND SIZE <--Lower CVD Risk Higher CVD Risk--> LDL AND HDL PARTICLES Percentile in Reference Population HDL-P (total) High 75th 50th 25th Low >34.9 34.9 30.5 26.7 <26.7 . Small LDL-P Low 25th 50th 75th High <117 117 527 839 >839 . LDL Size <-Large (Pattern A)-> <-Small (Pattern B)-> 23.0 20.6 20.5 19.0 Smal l LDL-P and LDL Size are associated with CVD risk, but not afterLDL-P is taken into account. Test(s) 246163-QCQ-O ; 903009-VBO-K; 738394-MOB-X; 470351-Nomohfswbeftu; 904810-Cfwpbhsfyxq, Total; 215242-HTS-E (Total);266662-Nulvz LDL-P; 129707-ATK Size; 093583-MW-EQ Scorewas developed and its performance characteristics determinedby CiiNOW. It has not been cleared or approved by the Foodand Drug Administration.PATIENT WAS FASTINGPERFORMED BY: [employer] [address] [id number] Lipoprotein.beta.subpar ticle [Moles/Vol] 912 nmol/L Normal [facility] Work Phone: Comment on above: Low < 1000 Moderate 1000 - 1299 Borderline-High 1300 - 1599 High 1600 - 2000 Very High > 2000 Test(s) 197189-LKO-X ; 705916-RFZ-Y; 016546-VNL-S; 638313-Fdwysvcddfdms; 459435-Eguzfpejfph, Total; 582546-GPF-X (Total);421541-Slpgy LDL-P; 982656-OZK Size; 847691-WQ-WJ Scorewas developed and its performance characteristics determinedby CiiNOW. It has not been cleared or approved by the Foodand Drug Administration.PATIENT WAS FASTINGPERFORMED BY: [employer] [address] [id number] Lipoprotein.beta.subpar ticle.small [Moles/Vol] 337 nmol/L Normal Comprehe nsive Internal Medicine Work Phone: Comment on above: Test(s) 365712-LCY-E ; 482021-ROV-S; 006738-ZYR-N; 808102-Mpfkgjsdssaiy; 717998-Sjjrvfgrwhe, Total; 823631-HVV-Q (Total);121048-Fzbjk LDL-P; 262678-DXR Size; 241257-VD-EG Scorewas developed and its performance characteristics determinedby CiiNOW. It has not been cleared or approved by the Foodand Drug Administration.PATIENT WAS FASTINGPERFORMED BY: [employer] [address] [id number] Triglyceride [Mass/Vol] 85 mg/dL Normal 0-149 C [facility] Work Phone: Comment on above: Test(s) 734052-OKX-B ; 589316-YCV-V; 292370-XKU-C; 308107-Sherrghbkyiqd; 271980-Ebgkumoqhpc, Total; 652958-TGK-D (Total);299518-Dkpag LDL-P; 336123-FTN Size; 545468-QP-GZ Scorewas developed and its performance characteristics determinedby CiiNOW. It has not been cleared or approved by the Foodand Drug Administration.PATIENT WAS FASTINGPERFORMED BY: Azonia[address] [id number] NMR Profile (19906) 82 mg/dL Normal 0-99 [facility] Internal [facility] Work Phone: Comment on above: . Optimal < 100 Abov e optimal 100 - 129 Borderline 130 - 159 High 160 - 189 Very high > 189 .LDL-C is inaccurate if patient is non-fasting. Test(s) 090860-KAS-V ; 423869-QZX-P; 294162-AJN-Y; 219470-Yvdtbinhyxsoq; 264737-Zqhomsqcsgv, Total; 135225-HTU-D (Total);427883-Kctep LDL-P; 941943-KYP Size; 470621-SM-QP Scorewas developed and its performance characteristics determinedby CiiNOW. It has not been cleared or approved by the Foodand Drug Administration.PATIENT WAS FASTINGPERFORMED BY: Azonia[address] [id number] NMR Profile (82235) 58 mg/dL Normal [facility] Work Phone: Comment on above: Test(s) 172932-KBB-U ; 533458-OCG-M; 711875-TVO-X; 485291-Nfcyogxqwktdl; 166857-Vehjdtmhrsq, Total; 398977-TUG-R (Total);151051-Befdv LDL-P; 042478-ZXE Size; 058653-LS-JQ Scorewas developed and its performance characteristics determinedby CiiNOW. It has not been cleared or approved by the Foodand Drug Administration.PATIENT WAS FASTINGPERFORMED BY: Azoniaton1447 [facility] [id number] CALCIFIDIOL (73529) VIT D 25 Ordered By: Inspector Crystal on 11-12-2019 25-Hydroxyvitamin D2+25-Hydroxyvitamin D3 [Mass/Vol] 72.8 ng/mL Normal 30.0-100.0 [facility] Work Phone: Comment on above: Vitamin D deficiency has been defined by the [place] of[place] and an Endocrine Society practice guideline as alevel of serum 25-OH vitamin D less than 20 ng/mL (1,2).The Endocrine Society went on to further define vitamin Dinsufficiency as a level between 21 and 29 ng/mL (2).1. IOM ([place] [employer]). 2010. Dietary reference intakes for calcium and D. [place]: The National Academies Press.2. Abraham MF, Robert MOREIRA, Seamus JOYNER, et al. Evaluation, treatment, and prevention of vitamin D deficiency: an Endocrine Society clinical practice guideline. JCEM. 2010; 96(7):1911-30. Test(s) 309880-XNU-N ; 034019-MFU-I; 022529-EGO-J; 177595-Tkqnpixmyqbae; 819846-Cjbjplslcor, Total; 442079-GWO-P (Total);683347-Baffv LDL-P; 423838-YOP Size; 902852-QP-GK Scorewas developed and its performance characteristics determinedby CiiNOW. It has not been cleared or approved by the Foodand Drug Administration.PATIENT WAS FASTINGPERFORMED BY: LabKedzohrp Etrzztiedf7771 [facility] [id number] BY: LabKedzohrp Wpojbf2350 [facility] [id number] CBC with auto diff (14321)Or dered By: Inspector Crystal on 11-12-2019 Basophils (Bld) [#/Vol] 0.1 {x10E3/uL} Normal 0.0-0.2 [facility] Work Phone: Comment on above: Test(s) 851524-MYU-H ; 948532-GBK-N; 817681-VVM-E; 569179-Vomnjqqvpcjpz; 287405-Qfvlqijcdfk, Total; 241610-YCT-Y (Total);343728-Cpkil LDL-P; 190380-WBN Size; 355433-UZ-WP Scorewas developed and its performance characteristics determinedby CiiNOW. It has not been cleared or approved by the Foodand Drug Administration.PATIENT WAS FASTINGPERFORMED BY: CodeSquare[address] [id number] BY: CodeSquareRobert Wood Johnson University HospitalPrtexb1102 [facility] [id number] Basophils (Bld) [#/Vol] 0.1 10*3/uL Normal 0.0-0.2 [facility]; [facility] Work Phone: Comment on above: Test(s) 178078-MTI-E ; 880839-LPM-U; 064613-BTV-U; 847280-Udvtbkvblzvfh; 678353-Roaewlhvkal, Total; 263946-EWZ-J (Total);969481-Qbatr LDL-P; 974503-ANM Size; 093472-FJ-XE Scorewas developed and its performance characteristics determinedby CiiNOW. It has not been cleared or approved by the Foodand Drug Administration.PATIENT WAS FASTINGPERFORMED BY: [employer] [address] [id number] BY: ioSafe70 [facility] [id number] Basophils/100 WBC (Bld) 1 % Normal [facility] Internal Medicine Work Phone: Comment on above: Test(s) 604586-BIL-S ; 138348-KDX-N; 862951-EBS-S; 003066-Igkpynkflsnui; 742750-Iaxwhzftwmt, Total; 560553-AKH-H (Total);552613-Wqozf LDL-P; 560762-XCT Size; 399678-FC-KD Scorewas developed and its performance characteristics determinedby CiiNOW. It has not been cleared or approved by the Foodand Drug Administration.PATIENT WAS FASTINGPERFORMED BY: CodeSquare[address] [id number] BY: CodeSquareRobert Wood Johnson University HospitalXekxza7633 [facility] [id number] Eosinophils (Bld) [#/Vol] 0.3 {x10E3/uL} Normal 0.0-0.4 [facility] Work Phone: Comment on above: Test(s) 482366-WZY-D ; 445186-LHM-L; 068663-FEH-J; 147107-Rhcaddizxtjzc; 964985-Pnisslfxrkm, Total; 052732-IIB-M (Total);578271-Omgch LDL-P; 355115-RVI Size; 141312-QS-SQ Scorewas developed and its performance characteristics determinedby CiiNOW. It has not been cleared or approved by the Foodand Drug Administration.PATIENT WAS FASTINGPERFORMED BY: Azonia[address] [id number] BY: Practice IgnitionLifeCare Hospitals [facility] [id number] Eosinophils (Bld) [#/Vol] 0.3 10*3/uL Normal 0.0-0.4 [facility]; [facility] Work Phone: Comment on above: Test(s) 889292-VML-S ; 081051-TMY-H; 428350-ZJU-P; 273006-Rnwyjivbgtntb; 475395-Flasvpcsvoq, Total; 109434-KQM-S (Total);747504-Jdqzz LDL-P; 830537-PIT Size; 547288-LJ-NF Scorewas developed and its performance characteristics determinedby CiiNOW. It has not been cleared or approved by the Foodand Drug Administration.PATIENT WAS FASTINGPERFORMED BY: Azonia[address] [id number] BY: ImmuRx6370 [facility]BrandsOur [facility] of [facility] [id number] Eosinophils/100 WBC (Bld) 5 % Normal [facility] Work Phone: Comment on above: Test(s) 172395-OHS-P ; 450610-DRZ-K; 566006-LSU-U; 792121-Qenqfvizvmukd; 276483-Cperxucifmt, Total; 048377-PGC-F (Total);782090-Nztcy LDL-P; 790712-YRV Size; 968292-QY-DZ Scorewas developed and its performance characteristics determinedby CiiNOW. It has not been cleared or approved by the Foodand Drug Administration.PATIENT WAS FASTINGPERFORMED BY: CodeSquare[address] [id number] BY: CodeSquareSan Juan Regional Medical CenterZprmme5191 [facility] [id number] Erythrocyte distribution width (RBC) [Ratio] 12.2 % Normal 11.6-15.4 [facility] Work Phone: Comment on above: Test(s) 051560-EIU-L ; 522885-GEF-R; 094201-LBK-H; 176349-Tdvdyuyovkieq; 310417-Xixvsqezmjv, Total; 943330-HDV-D (Total);402834-Axogf LDL-P; 598543-JDJ Size; 133657-PU-BN Scorewas developed and its performance characteristics determinedby CiiNOW. It has not been cleared or approved by the Foodand Drug Administration.PATIENT WAS FASTINGPERFORMED BY: [employer] [address] [id number] BY: CodeSquare Frvbqg5856 [facility] [id number] Hematocrit (Bld) [Volume fraction] 45.4 % Normal 37.5-51.0 [facility] Work Phone: Comment on above: Test(s) 570480-ETI-X ; 095042-JRM-G; 552675-KEK-O; 206604-Pqbursjbaisyc; 168350-Rgymwycdxqm, Total; 808451-HZH-A (Total);899423-Tbeew LDL-P; 830935-HPH Size; 085423-XN-YJ Scorewas developed and its performance characteristics determinedby CiiNOW. It has not been cleared or approved by the Foodand Drug Administration.PATIENT WAS FASTINGPERFORMED BY: CodeSquare[address] [id number] BY: CodeSquareRobert Wood Johnson University HospitalBcfwhw1835 [facility] [id number] Hemoglobin (Bld) [Mass/Vol] 14.6 g/dL Normal 13.0-17.7 [facility] Work Phone: Comment on above: Test(s) 128991-CNN-L ; 447560-MZF-K; 252026-XHE-H; 697251-Azuisslxvwwoi; 084603-Dnloyupjlrr, Total; 770865-HBM-C (Total);227724-Wwvmm LDL-P; 841570-SAG Size; 723777-XC-VS Scorewas developed and its performance characteristics determinedby CiiNOW. It has not been cleared or approved by the Foodand Drug Administration.PATIENT WAS FASTINGPERFORMED BY: [employer] [address] [id number] BY: [employer] Systems70 [facility] [id number] Immature granulocytes (Bld) [#/Vol] 0.0 {x10E3/uL} Normal 0.0-0.1 [facility] Work Phone: Comment on above: Test(s) 406247-SCA-N ; 164241-OTI-C; 420499-NVE-P; 983862-Lsidmdcbegwtp; 116460-Ylcvgcteqgi, Total; 571814-QNO-W (Total);862162-Kgawm LDL-P; 682134-HIM Size; 023994-CG-GP Scorewas developed and its performance characteristics determinedby CiiNOW. It has not been cleared or approved by the Foodand Drug Administration.PATIENT WAS FASTINGPERFORMED BY: CiiNOW [address] [id number] BY: ImmuRx6370 [facility] [facility] [id number] Immature granulocytes (Bld) [#/Vol] 0.0 10*3/uL Normal 0.0-0.1 [facility]; [facility] Work Phone: Comment on above: Test(s) 430280-RQA-Z ; 575697-LVE-R; 681887-WHX-K; 040744-Cwvlcedhotzdn; 185798-Ngsbhhrjhio, Total; 873855-XRF-C (Total);039071-Edjsa LDL-P; 239876-FBS Size; 733615-NQ-RS Scorewas developed and its performance characteristics determinedby CiiNOW. It has not been cleared or approved by the Foodand Drug Administration.PATIENT WAS FASTINGPERFORMED BY: iWarda[address] [id number] BY: CodeSquareSan Juan Regional Medical CenterJtvwru0400 [facility] [id number] Immature granulocytes/100 WBC (Bld) 0 % Normal [facility] Work Phone: Comment on above: Test(s) 468500-PRV-B ; 897780-POX-M; 581811-RWP-D; 743417-Toeohowurlysj; 130833-Fvhcslufefy, Total; 649550-VZE-L (Total);632192-Iihmg LDL-P; 972462-FXO Size; 264334-XA-PH Scorewas developed and its performance characteristics determinedby CiiNOW. It has not been cleared or approved by the Foodand Drug Administration.PATIENT WAS FASTINGPERFORMED BY: [employer] [address] [id number] BY: ImmuRx6370 [facility] [id number] Lymphocytes (Bld) [#/Vol] 1.3 {x10E3/uL} Normal 0.7-3.1 [facility] Work Phone: Comment on above: Test(s) 578124-LLE-X ; 956388-NIJ-T; 560487-DVF-H; 641566-Djttfmcfqifzr; 090540-Mwazciqrawk, Total; 823808-SHJ-G (Total);671188-Rgwcq LDL-P; 316440-AOG Size; 726253-JQ-UR Scorewas developed and its performance characteristics determinedby CiiNOW. It has not been cleared or approved by the Foodand Drug Administration.PATIENT WAS FASTINGPERFORMED BY: CodeSquare[address] [id number] BY: J[employer] Solar HoldingRobert Wood Johnson University HospitalRadbjc8206 [facility] [id number] Lymphocytes (Bld) [#/Vol] 1.3 10*3/uL Normal 0.7-3.1 [facility]; [facility] Work Phone: Comment on above: Test(s) 171680-QHN-K ; 484830-YPN-G; 722359-GGK-F; 250913-Shobkcqusstwd; 324261-Lclwytsojtu, Total; 402288-SND-F (Total);585730-Jqnle LDL-P; 795193-VCE Size; 159795-WO-GX Scorewas developed and its performance characteristics determinedby CiiNOW. It has not been cleared or approved by the Foodand Drug Administration.PATIENT WAS FASTINGPERFORMED BY: Azonia[address] [id number] BY: [employer] Systems70 [facility] [id number] Lymphocytes/100 WBC (Bld) 23 % Normal [facility] Work Phone: Comment on above: Test(s) 711044-BXT-M ; 004640-GAA-G; 072205-UTN-D; 341810-Jyvebecqvccdl; 826810-Lhbbygxdvjv, Total; 513868-JPK-E (Total);397994-Iubhw LDL-P; 267553-DFW Size; 081499-KQ-RR Scorewas developed and its performance characteristics determinedby CiiNOW. It has not been cleared or approved by the [employer] Drug Administration.PATIENT WAS FASTINGPERFORMED BY: [employer] [address] [id number] BY: ImmuRx6370 [facility] [id number] MCH (RBC) [Entitic mass] 28.2 pg Normal 26.6-33.0 [facility] Work Phone: Comment on above: Test(s) 098792-XKK-V ; 610900-VCM-Q; 125993-MCE-Q; 637988-Popsuontlykpf; 214552-Tnkxysravkq, Total; 685297-PYX-K (Total);860696-Hvagm LDL-P; 120648-MFX Size; 943701-ME-DJ Scorewas developed and its performance characteristics determinedby CiiNOW. It has not been cleared or approved by the Foodand Drug Administration.PATIENT WAS FASTINGPERFORMED BY: [employer] [address] [id number] BY: CodeSquareSan Juan Regional Medical CenterYkakhr2977 [facility] [id number] MCHC (RBC) [Mass/Vol] 32.2 g/dL Normal 31.5-35.7 [facility] Work Phone: Comment on above: Test(s) 151879-EMX-V ; 842846-QJZ-N; 895534-AQV-Y; 106911-Onbachkubvmjf; 579408-Wbohcdurtcr, Total; 222855-QIV-U (Total);641142-Jdmxc LDL-P; 001895-MQV Size; 301427-NX-PO Scorewas developed and its performance characteristics determinedby CiiNOW. It has not been cleared or approved by the Foodand Drug Administration.PATIENT WAS FASTINGPERFORMED BY: [employer] [address] [id number] BY: Answerology6370 [facility] [id number] MCV (RBC) [Entitic vol] 88 fL Normal 79-97 [facility] Internal Medicine Work Phone: Comment on above: Test(s) 513149-CNQ-T ; 842649-XGV-Z; 221266-PDS-T; 243547-Dyddeeqxsgxdm; 342388-Tgldctdxwvg, Total; 638626-XEE-V (Total);339432-Czyxl LDL-P; 370068-KBJ Size; 625176-YK-EL Scorewas developed and its performance characteristics determinedby CiiNOW. It has not been cleared or approved by the Foodand Drug Administration.PATIENT WAS FASTINGPERFORMED BY: [employer] [address] [id number] BY: CiiNOW Cqpkmd3735 [facility] [id number] Monocytes (Bld) [#/Vol] 0.4 {x10E3/uL} Normal 0.1-0.9 [facility] Work Phone: Comment on above: Test(s) 374684-CLC-Z ; 199379-NOF-L; 176095-LVY-I; 237515-Vwdxvjhymbrrc; 568931-Ycnhfkcfehh, Total; 902857-AML-C (Total);626685-Ylelo LDL-P; 479235-PNA Size; 983317-TQ-AE Scorewas developed and its performance characteristics determinedby CiiNOW. It has not been cleared or approved by the Foodand Drug Administration.PATIENT WAS FASTINGPERFORMED BY: Azonia[address] [id number] BY: Practice IgnitionLifeCare Hospitals of [facility] [id number] Monocytes (Bld) [#/Vol] 0.4 10*3/uL Normal 0.1-0.9 [facility]; [facility] Work Phone: Comment on above: Test(s) 408647-JVP-Q ; 567041-EFX-Y; 366692-DWS-S; 728225-Cboubohxrrjws; 657916-Pyodrgqhest, Total; 824677-FRK-G (Total);239808-Jtppg LDL-P; 328697-JAS Size; 758532-SA-ND Scorewas developed and its performance characteristics determinedby CiiNOW. It has not been cleared or approved by the [employer] Drug Administration.PATIENT WAS FASTINGPERFORMED BY: [employer] [address] [id number] BY: ImmuRx6370 [address] [facility]Life[facility] [place] [id number] Monocytes/100 WBC (Bld) 7 % Normal [facility] Work Phone: Comment on above: Test(s) 113327-IZL-A ; 326552-HTB-J; 463769-GQY-A; 988174-Hmqzistxhveez; 443968-Ttqvljaxpmd, Total; 304265-EJC-H (Total);111750-Djawn LDL-P; 549894-WIR Size; 615268-BA-JZ Scorewas developed and its performance characteristics determinedby CiiNOW. It has not been cleared or approved by the Foodand Drug Administration.PATIENT WAS FASTINGPERFORMED BY: CodeSquare[address] [id number] BY: CodeS[employer] Bxrnda9190 [facility] [id number] Neutrophils (Bld) [#/Vol] 3.5 {x10E3/uL} Normal 1.4-7.0 [facility] Work Phone: Comment on above: Test(s) 626936-EJZ-Z ; 575807-IJY-J; 459095-MYU-H; 622078-Qjrzyrbyspixh; 545122-Eluekcrymfp, Total; 118660-MMM-Z (Total);067543-Psxqw LDL-P; 458682-FGA Size; 892908-UW-UF Scorewas developed and its performance characteristics determinedby CiiNOW. It has not been cleared or approved by the Foodand Drug Administration.PATIENT WAS FASTINGPERFORMED BY: [employer] [address] [id number] BY: CodeS[employer] Dtpysj4981 [facility] [id number] Neutrophils (Bld) [#/Vol] 3.5 10*3/uL Normal 1.4-7.0 [facility]; [facility] Work Phone: Comment on above: Test(s) 773772-OLG-T ; 542446-YNP-C; 926002-NWX-E; 863785-Adkhtrhvvpmfb; 183089-Nejvwkpbytb, Total; 564520-ZBJ-L (Total);218777-Dyhwd LDL-P; 476941-WPU Size; 413010-AE-QI Scorewas developed and its performance characteristics determinedby CiiNOW. It has not been cleared or approved by the Foodand Drug Administration.PATIENT WAS FASTINGPERFORMED BY: CodeSquare[address] [id number] BY: CodeSquareRobert Wood Johnson University HospitalBmcotx2894 [facility] [id number] Neutrophils/100 WBC (Bld) 64 % Normal [facility] Work Phone: Comment on above: Test(s) 867527-DVI-N ; 184198-LSJ-A; 624956-VZO-B; 430770-Utkdlqsbxipjw; 975416-Dzqedrwzzrj, Total; 500718-QDK-L (Total);640877-Fgpfb LDL-P; 224095-VGU Size; 576815-KQ-MP Scorewas developed and its performance characteristics determinedby CiiNOW. It has not been cleared or approved by the Foodand Drug Administration.PATIENT WAS FASTINGPERFORMED BY: [employer] [address] [id number] BY: [employer]70 KODALifeCare Hospitals [facility] [id number] Platelets (d) [#/Vol] 281 {x10E3/uL} Normal 150-450 [facility] Work Phone: Comment on above: Test(s) 472311-ZOK-F ; 832177-ULF-J; 479031-GLZ-U; 534946-Edpqzkovmfznp; 713071-Aroamarwvpg, Total; 224700-WDB-A (Total);171629-Asoce LDL-P; 366344-SYB Size; 633941-ZC-CT Scorewas developed and its performance characteristics determinedby CiiNOW. It has not been cleared or approved by the Foodand Drug Administration.PATIENT WAS FASTINGPERFORMED BY: [employer] [address] [id number] BY: [employer] [place] [address] 911[facility] [id number] Platelets (Bld) [#/Vol] 281 10*3/uL Normal 150-450 [facility]; [facility] Work Phone: Comment on above: Test(s) 140277-LNI-P ; 489706-QQN-H; 442904-ZLO-S; 687507-Zzaygihzzerwa; 772554-Zjccinjgqtq, Total; 757801-GZT-A (Total);082108-Wpyqz LDL-P; 567348-KGA Size; 151337-DG-FL Scorewas developed and its performance characteristics determinedby CiiNOW. It has not been cleared or approved by the Foodand Drug Administration.PATIENT WAS FASTINGPERFORMED BY: [employer] [facility] [address] [id number] BY: [employer] Pxyrge0079 [facility] [id number] RBC (Bld) [#/Vol] 5.18 {x10E6/uL} Normal 4.14-5.80 [facility] Internal [facility] Work Phone: Comment on above: Test(s) 460555-SHA-Z ; 569152-GJZ-M; 357197-ZAW-U; 773122-Xjnwccxcruxlc; 585699-Pnmqkcvtwla, Total; 818027-HIM-H (Total);627432-Dhfjx LDL-P; 733820-JKY Size; 710535-UB-ZK Scorewas developed and its performance characteristics determinedby LabPfefferm[employer]. It has not been cleared or approved by the Foodand Drug Administration.PATIENT WAS FASTINGPERFORMED BY: iWardarp [address] [id number] BY: CodeSquareSan Juan Regional Medical CenterJmwhfm6710 [facility] [id number] RBC (Bld) [#/Vol] 5.18 10*6/uL Normal 4.14-5.80 [facility] Internal [facility]; [facility] Work Phone: Comment on above: Test(s) 886292-UIS-I ; 308048-DYM-F; 047079-MHB-W; 848185-Gzztkegclihqb; 964946-Uyfgedhymde, Total; 817928-QSA-G (Total);154655-Sxnvj LDL-P; 078712-OQE Size; 112370-UT-HY Scorewas developed and its performance characteristics determinedby CiiNOW. It has not been cleared or approved by the Foodand Drug Administration.PATIENT WAS FASTINGPERFORMED BY: [employer] [facility] [address] [id number] BY: LabKedzoh Xzduno2138 [facility] [id number] WBC (Bld) [#/Vol] 5.5 {x10E3/uL} Normal 3.4-10.8 [facility] Internal Medicine Work Phone: Comment on above: Test(s) 448430-KKN-W ; 157565-JIC-A; 410167-EVC-J; 730236-Hqklicinvqsbk; 952443-Excltmfwkgn, Total; 512498-FBU-L (Total);456195-Rqodt LDL-P; 663999-GJH Size; 783079-RS-TJ Scorewas developed and its performance characteristics determinedby CiiNOW. It has not been cleared or approved by the Foodand Drug Administration.PATIENT WAS FASTINGPERFORMED BY: IntY[address] [place] [address] [id number] BY: [employer]70 KODALifeCare Hospitals [facility] [id number] WBC (Bld) [#/Vol] 5.5 10*3/uL Normal 3.4-10.8 [facility] Internal [facility]; [facility] Work Phone: Comment on above: Test(s) 193981-LIM-C ; 272692-TVR-E; 648787-ZWK-D; 844137-Sydzeuwgatnmv; 947320-Jrlacagfjoi, Total; 329410-FJN-W (Total);435010-Csexg LDL-P; 390803-JKH Size; 367697-DA-CJ Scorewas developed and its performance characteristics determinedby CiiNOW. It has not been cleared or approved by the Foodand Drug Administration.PATIENT WAS FASTINGPERFORMED BY: [employer] [address] [id number] BY: ImmuRx6370 [facility] [id number] HgA1C , Office ([id number])Ordere d By: Licha Nur on 11-12-2019 HbA1c (Bld) [Mass fraction] 5.3 % Normal 4.6 - 7.1 [facility] Work Phone: METABOLIC PANEL, COMPREHENSI VE ([id number])Ordered By: Inspector Crystal on 11-12-2019 Albumin [Mass/Vol] 4.7 g/dL Normal 3.8-4.9 [facility] Internal [facility] Work Phone: Comment on above: Please note refere nce interval change Test(s) 297259-WKW-A ; 145643-DUP-L; 226686-KKV-C; 472774-Lnrhdfxkgqmfm; 308752-Vkbrrozoqie, Total; 398036-LKO-H (Total);017232-Cwghd LDL-P; 890485-ZMI Size; 067780-GI-HY Scorewas developed and its performance characteristics determinedby CiiNOW. It has not been cleared or approved by the Foodand Drug Administration.PATIENT WAS FASTINGPERFORMED BY: IntY[address] [place] [address] [id number] BY: [employer]70 KODALifeCare Hospitals of [facility] [place] [id number] Albumin/Globulin [Mass ratio] 2.1 {ratio} Normal 1.2-2.2 [facility] Work Phone: Comment on above: Test(s) 134139-ZTY-G ; 915269-HAD-T; 960155-XCH-C; 221982-Ngefdpmkfiroc; 329708-Zpuhnkscsvs, Total; 953109-DPU-N (Total);466138-Rcufk LDL-P; 556376-UDN Size; 435175-NG-XO Scorewas developed and its performance characteristics determinedby CiiNOW. It has not been cleared or approved by the Foodand Drug Administration.PATIENT WAS FASTINGPERFORMED BY: Azonia[address] [id number] BY: ImmuRx6370 [facility] [id number] ALP [Catalytic activity/Vol] 51 [iU]/L Normal 39-117 [facility] Work Phone: Comment on above: Test(s) 869868-XPU-U ; 014321-BCE-K; 706780-MWT-N; 489986-Nklardjnjrfrv; 526884-Qbyysjqfldt, Total; 894358-NVZ-Y (Total);612286-Oczap LDL-P; 990463-ASF Size; 165009-UJ-FX Scorewas developed and its performance characteristics determinedby CiiNOW. It has not been cleared or approved by the Foodand Drug Administration.PATIENT WAS FASTINGPERFORMED BY: CodeSquare[address] [id number] BY: CodeSquareRobert Wood Johnson University HospitalBwaxlq9494 [facility] [id number] ALP [Catalytic activity/Vol] 51 U/L Normal 39-117 [facility]; [facility] Work Phone: Comment on above: Test(s) 368560-DWL-J ; 539723-COL-S; 432369-SHU-J; 813353-Udxkmshrjcrxe; 737225-Ojxutggfchj, Total; 023210-YLO-M (Total);161433-Ugbhl LDL-P; 456671-UMU Size; 701990-GE-MK Scorewas developed and its performance characteristics determinedby CiiNOW. It has not been cleared or approved by the Foodand Drug Administration.PATIENT WAS FASTINGPERFORMED BY: CodeSquare[address] [id number] BY: CodeSquareOscar [place] 4023270 [facility] [id number] ALT [Catalytic activity/Vol] 24 [iU]/L Normal 0-44 [facility] Work Phone: Comment on above: Test(s) 253236-VOV-J ; 888741-CQI-Z; 800148-NWZ-E; 097812-Waaeuklijtwqi; 580330-Hxttgdozuum, Total; 319005-IPE-I (Total);460299-Rlmqs LDL-P; 646499-OYP Size; 773360-RV-WH Scorewas developed and its performance characteristics determinedby CiiNOW. It has not been cleared or approved by the Foodand Drug Administration.PATIENT WAS FASTINGPERFORMED BY: CodeSquare[address] [id number] BY: CodeSquareRobert Wood Johnson University HospitalDjewqg9818 [facility] [id number] ALT [Catalytic activity/Vol] 24 U/L Normal 0-44 [facility]; [facility] Work Phone: Comment on above: Test(s) 484524-YXX-G ; 109361-ZMM-J; 015384-PBU-Z; 828719-Hrfqxiuaoqrpr; 242477-Xneumeswark, Total; 609972-QOZ-T (Total);519040-Xujcl LDL-P; 256707-DBZ Size; 865116-NU-EW Scorewas developed and its performance characteristics determinedby CiiNOW. It has not been cleared or approved by the Foodand Drug Administration.PATIENT WAS FASTINGPERFORMED BY: [employer] [address] [id number] BY: [employer]70 [facility] [id number] AST [Catalytic activity/Vol] 15 [iU]/L Normal 0-40 [facility] Work Phone: Comment on above: Test(s) 906505-YJA-G ; 831577-LFQ-R; 469963-UXM-J; 399571-Fnqwkwbsnhzhl; 292815-Sohhehgqtok, Total; 420264-GSS-O (Total);145853-Hnqlo LDL-P; 798573-TPC Size; 460903-LW-KM Scorewas developed and its performance characteristics determinedby CiiNOW. It has not been cleared or approved by the Foodand Drug Administration.PATIENT WAS FASTINGPERFORMED BY: [employer] [address] [id number] BY: [email or web address] Uxdvgt3207 [facility] [id number] AST [Catalytic activity/Vol] 15 U/L Normal 0-40 [facility]; [facility] Work Phone: Comment on above: Test(s) 780523-TEB-J ; 530697-SVS-W; 931679-AFL-W; 182753-Hbsppghitarav; 683617-Zwcemlorcqc, Total; 723039-DML-R (Total);028870-Tbttk LDL-P; 587513-JMP Size; 226729-KB-YS Scorewas developed and its performance characteristics determinedby CiiNOW. It has not been cleared or approved by the Foodand Drug Administration.PATIENT WAS FASTINGPERFORMED BY: [employer] [address] [id number] BY: CodeSquare Karloe5791 [facility] [id number] Bilirubin [Mass/Vol] 0.5 mg/dL Normal 0.0-1.2 [facility] Internal Medicine Work Phone: Comment on above: Test(s) 559449-TGO-B ; 260108-IRO-E; 015360-DWS-Y; 999337-Tteliuqbzmkeh; 422111-Xlslsvsckmi, Total; 053465-TMD-X (Total);649247-Ixfgf LDL-P; 417303-FOW Size; 326300-WY-XQ Scorewas developed and its performance characteristics determinedby CiiNOW. It has not been cleared or approved by the Foodand Drug Administration.PATIENT WAS FASTINGPERFORMED BY: Azonia[address] [id number] BY: ImmuRx6370 [facility] [id number] Calcium [Mass/Vol] 9.8 mg/dL Normal 8.7-10.2 [facility] Internal [facility] Work Phone: Comment on above: Test(s) 642151-HAQ-P ; 309192-BAW-E; 290402-LTJ-G; 816777-Burwlklomjobq; 110826-Lquxxeutnrs, Total; 978904-QXD-S (Total);563154-Pfwtx LDL-P; 790831-ZLZ Size; 564079-EM-WD Scorewas developed and its performance characteristics determinedby CiiNOW. It has not been cleared or approved by the Foodand Drug Administration.PATIENT WAS FASTINGPERFORMED BY: [employer] [address] [id number] BY: CodeSquare Rjejma2255 [facility] [id number] Chloride [Moles/Vol] 104 mmol/L Normal 96-106 [facility] Internal Medicine Work Phone: Comment on above: Test(s) 390898-REF-A ; 377426-EIY-F; 272589-QRD-L; 729628-Ttyuueqhianqu; 393603-Wprllxaszdy, Total; 866622-WQH-S (Total);468261-Vxbge LDL-P; 039076-NGD Size; 333791-GO-KJ Scorewas developed and its performance characteristics determinedby CiiNOW. It has not been cleared or approved by the Foodand Drug Administration.PATIENT WAS FASTINGPERFORMED BY: [employer] [address] [id number] BY: [employer]70 [employer]9 SystemsCaroMont Regional Medical Center [facility] [id number] CO2 [Moles/Vol] 24 mmol/L Normal 20-29 [facility] Internal Medicine Work Phone: Comment on above: Test(s) 652862-SLN-M ; 310151-HQT-T; 331738-GOM-Z; 523395-Lcukpfesvynfy; 433025-Stqnoaenyhr, Total; 037716-IDF-T (Total);441211-Tmlkd LDL-P; 491816-WJA Size; 750624-ID-LF Scorewas developed and its performance characteristics determinedby CiiNOW. It has not been cleared or approved by the Foodand Drug Administration.PATIENT WAS FASTINGPERFORMED BY: [employer] [address] [id number] BY: ImmuRx6370 [facility] [id number] Creatinine [Mass/Vol] 0.95 mg/dL Normal 0.76-1.27 [facility] Internal Medicine Work Phone: Comment on above: Test(s) 599357-FWI-D ; 002275-JYZ-Z; 080481-XLZ-I; 543412-Vjoagdmodaxtm; 899746-Xmznhkwxuwc, Total; 492084-JTN-F (Total);646483-Qrlte LDL-P; 425542-JXD Size; 333163-HR-BR Scorewas developed and its performance characteristics determinedby CiiNOW. It has not been cleared or approved by the Foodand Drug Administration.PATIENT WAS FASTINGPERFORMED BY: [employer] [address] [id number] BY: [employer]70 [place] [employer] 911[facility] [id number] GFR/1.73 sq M predicted among blacks CKD-EPI (S/P/Bld) [Vol rate/Area] 101 mL/min/1.73 Normal [facility] Work Phone: Comment on above: Test(s) 515300-REH-V ; 564150-VWA-U; 115232-BQU-B; 080940-Dahesiibrxder; 923416-Sneqebpwgci, Total; 759902-PME-P (Total);709412-Hxgpv LDL-P; 619172-IGL Size; 827142-OG-IY Scorewas developed and its performance characteristics determinedby CiiNOW. It has not been cleared or approved by the Foodand Drug Administration.PATIENT WAS FASTINGPERFORMED BY: [employer] [address] [id number] BY: [employer]70 [employer] Platform9 SystemsCaroMont Regional Medical Center [facility] [place] [id number] GFR/1.73 sq M predicted among non-blacks CKD-EPI (S/P/Bld) [Vol rate/Area] 87 mL/min/1.73 Normal [facility] Work Phone: Comment on above: Test(s) 351067-KDD-Q ; 645258-VRO-X; 046257-SSD-I; 350665-Esbmqpcmqpcbe; 719632-Hedhknbtoht, Total; 205623-QDK-W (Total);572185-Wpzqs LDL-P; 782537-KJO Size; 824969-UV-EN Scorewas developed and its performance characteristics determinedby CiiNOW. It has not been cleared or approved by the Foodand Drug Administration.PATIENT WAS FASTINGPERFORMED BY: [employer] [address] [id number] BY: Feedjitlin6370 [employer]9 SystemsCaroMont Regional Medical Center [facility] [id number] Globulin (S) [Mass/Vol] 2.2 g/dL Normal 1.5-4.5 [facility] Internal Medicine Work Phone: Comment on above: Test(s) 938763-QPG-R ; 058383-EUD-E; 762070-WVQ-S; 038955-Xrkciegdidrng; 798844-Uoppejcqcvo, Total; 934125-YRE-K (Total);829698-Cygju LDL-P; 394587-ZBG Size; 951458-QM-BE Scorewas developed and its performance characteristics determinedby CiiNOW. It has not been cleared or approved by the Foodand Drug Administration.PATIENT WAS FASTINGPERFORMED BY: Azonia[address] [id number] BY: [employer]70 [facility] [id number] Glucose [Mass/Vol] 86 mg/dL Normal 65-99 [facility] Internal Medicine Work Phone: Comment on above: Test(s) 214011-JWU-P ; 626714-FZE-Q; 276540-LDT-M; 767044-Uqcvtazneahve; 345063-Ehsoxqkgukh, Total; 240029-WAJ-O (Total);201581-Vkgkx LDL-P; 747850-YJM Size; 985001-LB-NW Scorewas developed and its performance characteristics determinedby CiiNOW. It has not been cleared or approved by the Foodand Drug Administration.PATIENT WAS FASTINGPERFORMED BY: Azonia[address] [id number] BY: ImmuRx6370 [facility] [id number] Potassium [Moles/Vol] 4.6 mmol/L Normal 3.5-5.2 [facility] Internal Medicine Work Phone: Comment on above: Test(s) 213578-XQB-U ; 093140-AHZ-R; 649461-HQW-S; 140511-Amqnprfbnofin; 119882-Rnpyyodrzlj, Total; 152332-WMT-R (Total);731687-Sibck LDL-P; 393561-RQE Size; 225121-AR-RX Scorewas developed and its performance characteristics determinedby CiiNOW. It has not been cleared or approved by the Foodand Drug Administration.PATIENT WAS FASTINGPERFORMED BY: CodeSquare[address] [id number] BY: CodeSquareSan Juan Regional Medical CenterOxkght2580 [facility] [id number] Protein [Mass/Vol] 6.9 g/dL Normal 6.0-8.5 [facility] Internal Medicine Work Phone: Comment on above: Test(s) 466841-HHC-E ; 123253-HAF-R; 259550-ASS-V; 243809-Gfawofotuinqn; 516205-Zvniwllqvss, Total; 719419-FRC-B (Total);499802-Uhqxp LDL-P; 901698-FBF Size; 099762-RO-AO Scorewas developed and its performance characteristics determinedby CiiNOW. It has not been cleared or approved by the Foodand Drug Administration.PATIENT WAS FASTINGPERFORMED BY: CiiNOW [address] [id number] BY: Answerology6370 [facility] [id number] Sodium [Moles/Vol] 144 mmol/L Normal 134-144 [facility] Internal Medicine Work Phone: Comment on above: Test(s) 129402-GTI-I ; 691909-HNI-U; 326602-LDE-I; 478269-Gorwlfsgzrxjw; 109923-Dzmescekcic, Total; 163863-OCS-I (Total);006026-Tgpvt LDL-P; 834120-DRB Size; 264254-IS-RB Scorewas developed and its performance characteristics determinedby CiiNOW. It has not been cleared or approved by the Foodand Drug Administration.PATIENT WAS FASTINGPERFORMED BY: CodeSquare[address] [id number] BY: CodeSquareRobert Wood Johnson University HospitalCxzjbd3385 [facility] [id number] Urea nitrogen [Mass/Vol] 12 mg/dL Normal 6-24 [facility] Work Phone: Comment on above: Test(s) 493864-TJN-P ; 478418-NPX-W; 548604-YMT-U; 138376-Oumvoghkudsja; 560802-Sksmvsnngdd, Total; 704576-ZYX-U (Total);406486-Yiwaq LDL-P; 340565-XBR Size; 911482-HC-MC Scorewas developed and its performance characteristics determinedby CiiNOW. It has not been cleared or approved by the Foodand Drug Administration.PATIENT WAS FASTINGPERFORMED BY: [employer] [address] [id number] BY: [employer]line Systems70 [facility] [id number] Urea nitrogen/Creatinine [Mass ratio] 13 mg/mg Normal 9- [facility] Work Phone: Comment on above: Test(s) 846376-EFM-L ; 701888-URY-T; 344646-KEJ-Q; 368354-Ulxrfnjamoney; 350995-Urxwvgssudw, Total; 027139-QKU-G (Total);708064-Iddvh LDL-P; 277030-DAK Size; 546699-ZC-KE Scorewas developed and its performance characteristics determinedby CiiNOW. It has not been cleared or approved by the Foodand Drug Administration.PATIENT WAS FASTINGPERFORMED BY: [employer] [address] [id number] BY: ImmuRx6370 [facility] [id number] MICROALBUMINOrdered By: Syst em Collection Systems Technician on 11-12-2019 Albumin DL <= 20 mg/L (U) [Mass/Vol] mg/dL Normal [facility] Work Phone: Comment on above: Test(s) 036844-PFW-V ; 278191-TRH-K; 729998-IVM-B; 789410-Smrigmsbpsruq; 997133-Ifagtmwetmf, Total; 488495-VTY-M (Total);681541-Zpyir LDL-P; 460130-IOL Size; 784448-SY-GS Scorewas developed and its performance characteristics determinedby CiiNOW. It has not been cleared or approved by the Foodand Drug Administration.PATIENT WAS FASTINGPERFORMED BY: [employer] [address] [id number] BY: CodeSquare Uxhihi0821 [facility] [id number] Albumin DL <= 20 mg/L (U) [Mass/Vol] mg/dL Normal [facility]; [facility] Work Phone: Comment on above: Test(s) 788754-FUA-H ; 884990-QTZ-N; 330200-QWG-W; 605821-Jsdkwokcnkeob; 269172-Iosicggzjre, Total; 595557-XIX-K (Total);243726-Sjofz LDL-P; 941326-QLA Size; 384743-OW-SR Scorewas developed and its performance characteristics determinedby CiiNOW. It has not been cleared or approved by the Foodand Drug Administration.PATIENT WAS FASTINGPERFORMED BY: [employer] [address] [id number] BY: ImmuRx6370 [facility] [id number] Albumin/Creatinine (U) [Mass ratio] <2 Normal 0-29 [facility] Work Phone: Comment on above: Normal: 0 - 29 Moder ately increased: 30 - 300 Severely increased: >300 Please note reference interval change Test(s) 211990-DTF-U ; 870623-ZIE-V; 201601-MJI-X; 696150-Nnmnutzlubasz; 840170-Tjrgujdatbz, Total; 807106-XHH-J (Total);465298-Kauef LDL-P; 072328-FNV Size; 089960-EX-RU Scorewas developed and its performance characteristics determinedby CiiNOW. It has not been cleared or approved by the Foodand Drug Administration.PATIENT WAS FASTINGPERFORMED BY: [employer] [address] [id number] BY: Answerology6370 [facility] [id number] Creatinine (U) [Mass/Vol] 135.6 mg/dL Normal [facility] Work Phone: Comment on above: Test(s) 472192-COA-T ; 363137-HKB-K; 442371-KHT-H; 380566-Npyddlhxteyvc; 311831-Yowfpiauwbt, Total; 199382-KZC-Z (Total);018925-Zsdcp LDL-P; 568739-WRB Size; 619500-XD-IM Scorewas developed and its performance characteristics determinedby CiiNOW. It has not been cleared or approved by the Foodand Drug Administration.PATIENT WAS FASTINGPERFORMED BY: Between Digital[address] [place] [address] [id number] BY: Sureline Systems70 [facility] [id number] NMR Profile (93820)Ordered B y: Inspector Crystal on 11-12-2019 Cholesterol [Mass/Vol] 233 mg/dL Abnormal 100-199 [facility] Internal Medicine Work Phone: Comment on above: Test(s) 376108-PBQ-B ; 054612-WHR-Z; 000146-TTP-N; 541412-Ieidzdxkccqta; 805053-Ikphikfqtch, Total; 438329-TBP-C (Total);911481-Sezax LDL-P; 342315-MHG Size; 924563-QW-YT Scorewas developed and its performance characteristics determinedby CiiNOW. It has not been cleared or approved by the Foodand Drug Administration.PATIENT WAS FASTINGPERFORMED BY: IntY[address] [place] [address] [id number] BY: ImmuRx6370 [facility] [id number] Lipoprotein.alpha [Moles/Vol] 33.1 umol/L Normal [facility] Work Phone: Comment on above: Test(s) 411902-NUH-L ; 439259-SKN-D; 888831-EDD-V; 257197-Yvvvwgtcxcpct; 750690-Qwhdtvunnnv, Total; 691746-CFH-K (Total);782183-Muzgk LDL-P; 945721-KIY Size; 725304-SH-SM Scorewas developed and its performance characteristics determinedby CiiNOW. It has not been cleared or approved by the Foodand Drug Administration.PATIENT WAS FASTINGPERFORMED BY: [facility] Ujggykexkb8352 [facility] [id number] BY: CB [facility] Jcfqvp9600 [facility] [id number] Lipoprotein.beta.subpar ticle [Entitic length] 20.9 nm Normal [facility] Internal [facility] Work Phone: Comment on above: INTERPRETATIVE INFORMATION PARTICLE CONCENTRATION AND SIZE <--Lower CVD Risk Higher CVD Risk--> LDL AND HDL PARTICLES Percentile in Reference Population HDL-P (total) High 75th 50th 25th Low >34.9 34.9 30.5 26.7 <26.7 . Small LDL-P Low 25th 50th 75th High <117 117 527 839 >839 . LDL Size <-Large (Pattern A)-> <-Small (Pattern B)-> 23.0 20.6 20.5 19.0 Smal l LDL-P and LDL Size are associated with CVD risk, but not afterLDL-P is taken into account. Test(s) 979042-JRD-G ; 378270-NIS-E; 579545-HDK-C; 646705-Meurwzqoqwlmm; 763420-Zbgraoonjbu, Total; 227377-SRM-E (Total);444679-Zvqtl LDL-P; 863663-XOU Size; 059408-ZK-BD Scorewas developed and its performance characteristics determinedby CiiNOW. It has not been cleared or approved by the Foodand Drug Administration.PATIENT WAS FASTINGPERFORMED BY: Azoniaton1447 [facility] [id number] BY: [email or web address] Hlgoys2783 [place] [facility] 911[facility] [id number] Lipoprotein.beta.subpar ticle [Moles/Vol] 1809 nmol/L Abnormal [facility] Work Phone: Comment on above: Low < 1000 Moderate 1000 - 1299 Borderline-High 1300 - 1599 High 1600 - 2000 Very High > 2000 Test(s) 469321-KLE-M ; 104720-CJZ-S; 107241-GLD-R; 213166-Kpqvyrhfjyzix; 154848-Adkpzeysbqb, Total; 959761-UTK-X (Total);304190-Yhegl LDL-P; 160855-YOM Size; 532743-QA-NH Scorewas developed and its performance characteristics determinedby CiiNOW. It has not been cleared or approved by the Foodand Drug Administration.PATIENT WAS FASTINGPERFORMED BY: Azonia[address] [id number] BY: ImmuRx6370 [facility] [id number] Lipoprotein.beta.subpar ticle.small [Moles/Vol] 737 nmol/L Abnormal [facility] Internal Medicine Work Phone: Comment on above: Test(s) 499055-VUJ-J ; 850608-GSB-T; 591075-WAV-H; 419405-Ccgdhoqiqtsvj; 438254-Knuflcmcfxp, Total; 919616-VFJ-Q (Total);334851-Jnmij LDL-P; 292674-TPI Size; 685896-YE-JX Scorewas developed and its performance characteristics determinedby CiiNOW. It has not been cleared or approved by the Foodand Drug Administration.PATIENT WAS FASTINGPERFORMED BY: Azoniaton1447 [facility] [id number] BY: [employer] Sjwciv1760 [employer] Platform9 SystemsCaroMont Regional Medical [facility] [id number] Triglyceride [Mass/Vol] 114 mg/dL Normal 0-149 C [facility] Internal Medicine Work Phone: Comment on above: Test(s) 392838-QYP-Q ; 408714-CNW-L; 045815-UOM-C; 136813-Tnjpttzzdieqv; 108434-Tjxexwqddld, Total; 534582-EXK-O (Total);425253-Hyowa LDL-P; 257740-ZGD Size; 490999-MD-XR Scorewas developed and its performance characteristics determinedby CiiNOW. It has not been cleared or approved by the [employer] Drug Administration.PATIENT WAS FASTINGPERFORMED BY: Azonia[address] [id number] BY: [employer]line Systems[address] [facility] [id number] NMR Profile (60733) 158 mg/dL Abnormal 0-99 [facility] Internal Medicine Work Phone: Comment on above: . Optimal < 100 Abov e optimal 100 - 129 Borderline 130 - 159 High 160 - 189 Very high > 189 .LDL-C is inaccurate if patient is non-fasting. Test(s) 040408-YML-P ; 218471-PMM-U; 929352-SAB-K; 527052-Jtsptsecdgvcl; 304628-Xetgbjkikwr, Total; 963628-BPX-Q (Total);989108-Oytfz LDL-P; 975753-RZZ Size; 886675-NK-FW Scorewas developed and its performance characteristics determinedby CiiNOW. It has not been cleared or approved by the [employer] Drug Administration.PATIENT WAS FASTINGPERFORMED BY: Azonia[address] [id number] BY: ImmuRx6370 [facility] [id number] NMR Profile (55250) 52 mg/dL Normal [facility] Internal Medicine Work Phone: Comment on above: Test(s) 808008-KKE-Z ; 649072-HZS-U; 115015-WJZ-Z; 893441-Tnlznhuqyfkhz; 906907-Iosjwihleil, Total; 173563-ONC-O (Total);962337-Pzqgw LDL-P; 259866-BXJ Size; 834037-HY-NZ Scorewas developed and its performance characteristics determinedby CiiNOW. It has not been cleared or approved by the Foodand Drug Administration.PATIENT WAS FASTINGPERFORMED BY: iWarda[address] [id number] BY: CodeSquareRobert Wood Johnson University HospitalKiquus2179 [facility] [id number] TSH (THYROID STIMULATING HOR LEATHA) (73320)Ordered By: Inspector Crystal on 11-12-2019 TSH Qn 0.805 {uIU/mL} Normal 0.450-4.50 0 [facility] Work Phone: Comment on above: Test(s) 115783-KWR-N ; 194249-DKD-T; 842068-NMV-Q; 877823-Zxcrylvefnjtj; 647240-Nzshljcbgct, Total; 774020-XXB-J (Total);907217-Rmreg LDL-P; 166488-UIV Size; 445160-AR-VF Scorewas developed and its performance characteristics determinedby CiiNOW. It has not been cleared or approved by the Foodand Drug Administration.PATIENT WAS FASTINGPERFORMED BY: [employer] [address] [id number] BY: CodeSquareSan Juan Regional Medical CenterZkqooo3599 [facility] [id number] ESTEPHANIE (ANTINUCLEAR ANTIBODY) ( 98350)Ordered By: Inspector Crystal on 10-04-2018 Nuclear Ab Ql (S) Negative Normal Compreh ensive Internal Medicine Work Phone: Comment on above: PATIENT WAS FASTINGP ERFORMED BY: [employer] [address] [id number] BY: CiiNOW Epxrhz0120 [facility] [id number] Nuclear Ab Ql (S) Negative Normal Compreh ensive Internal Medicine; [facility] Work Phone: Comment on above: PATIENT WAS FASTINGP ERFORMED BY: [employer] [address] [id number] BY: Feedjitlin6370 [facility] [id number] C-REACTIVE PROTEIN (35040)Or dered By: Inspector Crystal on 10-04-2018 CRP [Mass/Vol] 0.6 mg/L Normal 0.0-4.9 [facility] Internal Medicine Work Phone: Comment on above: PATIENT WAS FASTINGP ERFORMED BY: AssetAvenue[address] [id number] BY: CodeSquare Zpwdor7941 [facility] [id number] CALCIFIDIOL (05662) VIT D 25 Ordered By: Inspector Crystal on 10-04-2018 25-Hydroxyvitamin D2+25-Hydroxyvitamin D3 [Mass/Vol] 29.6 ng/mL Abnormal 30.0-100.0 [facility] Work Phone: Comment on above: Vitamin D deficiency has been defined by the [place] ofC[facility] Cliniccine and an Endocrine Society practice guideline as alevel of serum 25-OH vitamin D less than 20 ng/mL (1,2).The Endocrine Society went on to further define vitamin Dinsufficiency as a level between 21 and 29 ng/mL (2).1. IOM ([place] of Medicine). 2010. Dietary reference intakes for calcium and D. [place]: The National Academies Press.2. Abraham MF, Robert MOREIRA, Seamus JOYNER, et al. Evaluation, treatment, and prevention of vitamin D deficiency: an Endocrine Society clinical practice guideline. JCEM. 2010; 96(7):1911-30. PATIENT WAS FASTINGP ERFORMED BY: AssetAvenue[address] [id number] BY: CodeSquareRobert Wood Johnson University HospitalYtmtve2827 [facility] [id number] CBC (AUTO) (66162)Ordered By : Inspector Crystal on 10-04-2018 Erythrocyte distribution width (RBC) [Ratio] 12.9 % Normal 12.3-15.4 [facility] Work Phone: Comment on above: PATIENT WAS FASTINGP ERFORMED BY: CodeSquare Fvlvoffqow0012[address] [id number] BY: CodeSquareRobert Wood Johnson University HospitalOykymu0813 [address]ero RoadDublin [place] [id number] Hematocrit (Bld) [Volume fraction] 45.0 % Normal 37.5-51.0 [facility] Work Phone: Comment on above: PATIENT WAS FASTINGP ERFORMED BY: [address] [id number] BY: BIANCA [facility] Mmddwg6084 Valero RoadDublin [place] [id number] Hemoglobin (Bld) [Mass/Vol] 14.8 g/dL Normal 13.0-17.7 [facility] Work Phone: Comment on above: PATIENT WAS FASTINGP ERFORMED BY: [address] [id number] BY: BIANCA [facility] Zrpoyd7775 [address] RoadDublin [place] [id number] MCH (RBC) [Entitic mass] 29.1 pg Normal 26.6-33.0 [facility] Internal [facility] Work Phone: Comment on above: PATIENT WAS FASTINGP ERFORMED BY: [address] [id number] BY: BIANCA LabChristian [facility] Ourizo5492 [address]ero RoadDublin [place] [id number] MCHC (RBC) [Mass/Vol] 32.9 g/dL Normal 31.5-35.7 [facility] Internal Medicine Work Phone: Comment on above: PATIENT WAS FASTINGP ERFORMED BY: Lab[address] [id number] BY: BIANCA [facility] Mdoujo1970 [address] RoadDublin [place] [id number] MCV (RBC) [Entitic vol] 89 fL Normal 79-97 [facility] Internal Medicine Work Phone: Comment on above: PATIENT WAS FASTINGP ERFORMED BY: [address] [id number] BY: BIANCA Lab[facility] Ydwfwl5213 [address] RoadDublin [place] [id number] Platelets (Bld) [#/Vol] 277 {x10E3/uL} Normal 150-379 [facility] Work Phone: Comment on above: PATIENT WAS FASTINGP ERFORMED BY: [facility] Kfirdgbize70[address] [id number] BY: BIANCA [facility] Aefbxf8097 [address] RoadDublin [place] [id number] Platelets (Bld) [#/Vol] 277 10*3/uL Normal 150-379 [facility]; [facility] Work Phone: Comment on above: PATIENT WAS FASTINGP ERFORMED BY: [facility] [address] [id number] BY: BIANCA [facility] Gaungz5523 [address] RoadDublin [place] [id number] RBC (Bld) [#/Vol] 5.08 {x10E6/uL} Normal 4.14-5.80 [facility] Internal Medicine Work Phone: Comment on above: PATIENT WAS FASTINGP ERFORMED BY: [facility] [address] [id number] BY: BIANCA [facility] Vlspom5831 [address] RoadDublin [place] [id number] RBC (Bld) [#/Vol] 5.08 10*6/uL Normal 4.14-5.80 [facility] Internal Medicine; [facility] Internal [facility] Work Phone: Comment on above: PATIENT WAS FASTINGP ERFORMED BY: [facility] [address] [id number] BY: BIANCA [facility] Dhtepy9193 [address] RoadDublin [place] [id number] WBC (Bld) [#/Vol] 4.6 {x10E3/uL} Normal 3.4-10.8 [facility] Internal Medicine Work Phone: Comment on above: PATIENT WAS FASTINGP ERFORMED BY: [facility] [address] [id number] BY: BIANCA [facility] Nicvrh5449 [facility] [id number] WBC (Bld) [#/Vol] 4.6 10*3/uL Normal 3.4-10.8 [facility] Internal Medicine; [facility] Work Phone: Comment on above: PATIENT WAS FASTINGP ERFORMED BY: CodeSquare[address] [id number] BY: LabKedzohRobert Wood Johnson University HospitalOhrewu1892 [facility] [id number] LIPOPROTEIN, BLD, BY NMR (76 624)Ordered By: Inspector Crystal on 10-04-2018 Cholesterol [Mass/Vol] 250 mg/dL Abnormal 100-199 [facility] Internal Medicine Work Phone: Comment on above: PATIENT WAS FASTINGP ERFORMED BY: CodeSquare Yzusrxotfo[address] [id number] BY: CodeSquare Hcuvln1488 [facility] [id number] Cholesterol in HDL [Mass/Vol] 54 mg/dL Normal [facility] Work Phone: Comment on above: PATIENT WAS FASTINGP ERFORMED BY: CodeSquare Uekbwyatpy34[address] [id number] BY: CodeSquareRobert Wood Johnson University HospitalZxaord0939 [facility] [id number] Cholesterol in LDL [Mass/Vol] 177 mg/dL Abnormal 0-99 [facility] Work Phone: Comment on above: . Optimal < 100 Abov e optimal 100 - 129 Borderline 130 - 159 High 160 - 189 Very high > 189 .LDL-C is inaccurate if patient is non-fasting. PATIENT WAS FASTINGP ERFORMED BY: CodeSquare Ivbgnmexii9339[address] [id number] BY: CodeSquareRobert Wood Johnson University HospitalNsxkbb9709 [facility] [id number] Lipoprotein.alpha [Moles/Vol] 33.0 umol/L Normal [facility] Work Phone: Comment on above: PATIENT WAS FASTINGP ERFORMED BY: [employer] [address] [id number] BY: CodeSquare Kwjhep6602 [facility] [id number] Lipoprotein.beta.subpar ticle [Entitic length] 21.2 nm Normal [facility] Internal Medicine Work Phone: Comment on above: INTERPRETATIVE INFORMATION PARTICLE CONCENTRATION AND SIZE <--Lower CVD Risk Higher CVD Risk--> LDL AND HDL PARTICLES Percentile in Reference Population HDL-P (total) High 75th 50th 25th Low >34.9 34.9 30.5 26.7 <26.7 . Small LDL-P Low 25th 50th 75th High <117 117 527 839 >839 . LDL Size <-Large (Pattern A)-> <-Small (Pattern B)-> 23.0 20.6 20.5 19.0 Smal l LDL-P and LDL Size are associated with CVD risk, but not afterLDL-P is taken into account. .These assays were developed and their performance characteristicsdetermined by [employer]. These assays have not been cleared by [place] Food and Drug Administration. The clinical utility of theselaboratory values have not been fully established. PATIENT WAS FASTINGP ERFORMED BY: [employer] [address] [id number] BY: Answerology6370 [facility] [id number] Lipoprotein.beta.subpar ticle [Moles/Vol] 2113 nmol/L Abnormal [facility] Internal [facility] Work Phone: Comment on above: Low < 1000 Moderate 1000 - 1299 Borderline-High 1300 - 1599 High 1600 - 2000 Very High > 2000 PATIENT WAS FASTINGP ERFORMED BY: LabCo[address] [id number] BY: [facility] Pvqywx[address] [facility] Hospitalin [place] [id number] Lipoprotein.beta.subpar ticle.small [Moles/Vol] 818 nmol/L Abnormal [facility] Internal Medicine Work Phone: Comment on above: PATIENT WAS FASTINGP ERFORMED BY: [facility] [address] [id number] BY: [facility] Biyrlo[address] [facility] [id number] Triglyceride [Mass/Vol] 97 mg/dL Normal 0-149 C [facility] Internal Medicine Work Phone: Comment on above: PATIENT WAS FASTINGP ERFORMED BY: CodeSquare[address] [id number] BY: [facility] Jrbalr7696 [facility] [id number] METABOLIC PANEL, COMPREHENSI VE (31428)Ordered By: Inspector Crystal on 10-04-2018 Albumin [Mass/Vol] 4.6 g/dL Normal 3.5-5.5 [facility] Internal Medicine Work Phone: Comment on above: PATIENT WAS FASTINGP ERFORMED BY: CodeSquare[address] [id number] BY: [facility] Ulkqee1039 [facility] [id number] Albumin/Globulin [Mass ratio] 1.9 {ratio} Normal 1.2-2.2 [facility] Work Phone: Comment on above: PATIENT WAS FASTINGP ERFORMED BY: Lab[address] [id number] BY: [facility] Hmgifc8[address] [facility] [id number] ALP [Catalytic activity/Vol] 54 [iU]/L Normal 39-117 [facility] Work Phone: Comment on above: PATIENT WAS FASTINGP ERFORMED BY: LabCo[address] [id number] BY: BIANCA [facility] Amxueh1547 [address] RoadDublin [place] [id number] ALP [Catalytic activity/Vol] 54 U/L Normal 39-117 [facility]; [facility] Work Phone: Comment on above: PATIENT WAS FASTINGP ERFORMED BY: [facility] [address] [id number] BY: BIANCA [facility] Xiexid8300 [address] RoadDublin [place] [id number] ALT [Catalytic activity/Vol] 24 [iU]/L Normal 0-44 [facility] Work Phone: Comment on above: PATIENT WAS FASTINGP ERFORMED BY: Lab[address] [id number] BY: BIANCA [facility] Zobpgi9506 [address] RoadDublin [place] [id number] ALT [Catalytic activity/Vol] 24 U/L Normal 0-44 [facility]; [facility] Work Phone: Comment on above: PATIENT WAS FASTINGP ERFORMED BY: Lab[address] [id number] BY: [facility] Coluwk7190 [address] RoadDublin [place] [id number] AST [Catalytic activity/Vol] 16 [iU]/L Normal 0-40 [facility] Work Phone: Comment on above: PATIENT WAS FASTINGP ERFORMED BY: Lab[address] [id number] BY: [facility] Gkvxos9376 [address]ero RoadDublin [place] [id number] AST [Catalytic activity/Vol] 16 U/L Normal 0-40 [facility]; [facility] Work Phone: Comment on above: PATIENT WAS FASTINGP ERFORMED BY: Lab[address] [id number] BY: BIANCA [facility] Vnvrqi2927 Valero RoadDublin [place] [id number] Bilirubin [Mass/Vol] 0.3 mg/dL Normal 0.0-1.2 [facility] Work Phone: Comment on above: PATIENT WAS FASTINGP ERFORMED BY: LabCo[address] [id number] BY: BIANCA [facility] Dxfcvd8875 Valero RoadDublin [place] [id number] Calcium [Mass/Vol] 9.9 mg/dL Normal 8.7-10.2 [facility] Internal Medicine Work Phone: Comment on above: PATIENT WAS FASTINGP ERFORMED BY: LabCo[address] [id number] BY: BIANCA [facility] Iyhhxi7021 [address] RoadDublin [place] [id number] Chloride [Moles/Vol] 102 mmol/L Normal 96-106 [facility] Work Phone: Comment on above: PATIENT WAS FASTINGP ERFORMED BY: Lab[address] [id number] BY: BIANCA [facility] Wuicvc4049 [address] RoadDublin [place] [id number] CO2 [Moles/Vol] 24 mmol/L Normal 20-29 [facility] Internal Medicine Work Phone: Comment on above: PATIENT WAS FASTINGP ERFORMED BY: LabCoHeather [place] [address] [facility] [id number] BY: BIANCA [facility] Bmnutr6989 [address] RoadDublin [place] [id number] Creatinine [Mass/Vol] 1.01 mg/dL Normal 0.76-1.27 [facility] Internal Medicine Work Phone: Comment on above: PATIENT WAS FASTINGP ERFORMED BY: LabCo[address] [id number] BY: BIANCA [facility] Pbiekd5803 [address] RoadDublin [place] [id number] GFR/1.73 sq M predicted among blacks CKD-EPI (S/P/Bld) [Vol rate/Area] 95 mL/min/1.73 Normal [facility] Work Phone: Comment on above: PATIENT WAS FASTINGP ERFORMED BY: [facility] [address] [id number] BY: BIANCA [facility] Zqfhku[address] [facility] [id number] GFR/1.73 sq M predicted among non-blacks CKD-EPI (S/P/Bld) [Vol rate/Area] 82 mL/min/1.73 Normal [facility] Work Phone: Comment on above: PATIENT WAS FASTINGP ERFORMED BY: LEXII LabCo[address] [id number] BY: BIANCA [facility] Xjgkrj9729 [facility] [id number] Globulin (S) [Mass/Vol] 2.4 g/dL Normal 1.5-4.5 C omprehensive Internal Medicine Work Phone: Comment on above: PATIENT WAS FASTINGP ERFORMED BY: LEXII [facility] [address] [id number] BY: BIANCA [facility] Djelcn5340 [facility] [id number] Glucose [Mass/Vol] 99 mg/dL Normal 65-99 Compre [facility] Internal Medicine Work Phone: Comment on above: PATIENT WAS FASTINGP ERFORMED BY: [facility] [address] [id number] BY: BIANCA [facility] Sguyzn7358 [facility] [id number] Potassium [Moles/Vol] 4.8 mmol/L Normal 3.5-5.2 Com prehensive Internal Medicine Work Phone: Comment on above: PATIENT WAS FASTINGP ERFORMED BY: [facility] [address] [id number] BY: CB [facility] Spjpgh6118 [address] RoadDublin [place] [id number] Protein [Mass/Vol] 7.0 g/dL Normal 6.0-8.5 [facility] Internal Medicine Work Phone: Comment on above: PATIENT WAS FASTINGP ERFORMED BY: [facility] [address] [id number] BY: CB [facility] Tentkb5771 [address] RoadDublin [place] [id number] Sodium [Moles/Vol] 143 mmol/L Normal 134-144 [facility] Internal Medicine Work Phone: Comment on above: PATIENT WAS FASTINGP ERFORMED BY: [facility] [address] [id number] BY: BIANCA [facility] Jgpneu4265 [address] RoadDublin [place] [id number] Urea nitrogen [Mass/Vol] 12 mg/dL Normal 6-24 [facility] Work Phone: Comment on above: PATIENT WAS FASTINGP ERFORMED BY: LabCo[address] [id number] BY: BIANCA [facility] Hnkxyi3027 [address] RoadDublin [place] [id number] Urea nitrogen/Creatinine [Mass ratio] 12 mg/mg Normal 9-20 [facility] Work Phone: Comment on above: PATIENT WAS FASTINGP ERFORMED BY: LabCo[address] [id number] BY: [facility] Rmvxjl0367 Valero RoadDublin [place] [id number] SED RATE ERYTHROCYTE (81905) Ordered By: Inspector Crystal on 10-04-2018 ESR (Bld) [Velocity] 2 mm/h Normal 0-30 [facility] Work Phone: Comment on above: PATIENT WAS FASTINGP ERFORMED BY: LabCo[address] [id number] BY: [facility] Zdwusy1020 [facility] [id number] TSH (22488)Ordered By: Goran m Collection Systems Technician on 10-04-2018 TSH Qn 1.330 {uIU/mL} Normal 0.450-4.50 0 [facility] Work Phone: Comment on above: PATIENT WAS FASTINGP ERFORMED BY: AssetAvenueton1447 [facility] [id number] BY: BIANCA [employer] Ayvzsz5230 [facility] [id number] VITAMIN B-12 (CYANOCOBALAMIN ) (64732)Ordered By: Inspector Crystal on 10-04-2018 Cobalamin (Vitamin B12) [Mass/Vol] 499 pg/mL Normal 232-1245 [facility] Work Phone: Comment on above: PATIENT WAS FASTINGP ERFORMED BY: AssetAvenue[address] [id number] BY: BIANCA Colppylin6370 [facility] [id number] Blood Glucose , Office ([phone])Ordered By: Josefa Reinoso on 10-01-2018 Glucose Glucometer molar conc (BldC) 84 1 Normal [facility] Work Phone: HgA1C , Office ([phone])Ordere d By: Josefa Reinoso on 10-01-2018 Hemoglobin A1c/Hemoglobin.total mass fraction (Bld) 5.5 % Normal 4.6 - 7.1 Comprehensiv e Internal Medicine Work Phone: Blood Glucose , Office ([phone])Ordered By: Nadia Valerio on 08-01-2017 Glucose Glucometer molar conc (BldC) 88 1 Normal [facility] Work Phone: CBC W/AUTO DIFF WBC (53975)O rdered By: Inspector Crystal on 08-01-2017 Basophils (Bld) [#/Vol] 0.1 {x10E3/uL} Normal 0.0-0.2 [facility] Work Phone: Comment on above: PATIENT WAS FASTINGP ERFORMED BY: Colppylin6370 [facility] [id number] Basophils (Bld) [#/Vol] 0.1 10*3/uL Normal 0.0-0.2 [facility]; [facility] Work Phone: Comment on above: PATIENT WAS FASTINGP ERFORMED BY: [place] 7358370 [facility] [id number] Basophils Auto #/vol (Bld) 0.1 {x10E3/uL} Normal 0.0-0.2 [facility] Work Phone: Basophils/100 WBC (Bld) 2 % Normal C omprehensive Internal Medicine Work Phone: Comment on above: PATIENT WAS FASTINGP ERFORMED BY: [address] [id number] Basophils/100 WBC Auto (Bld) 2 % Normal [facility] Work Phone: Eosinophils (Bld) [#/Vol] 0.3 {x10E3/uL} Normal 0.0-0.4 [facility] Work Phone: Comment on above: PATIENT WAS FASTINGP ERFORMED BY: [address] [id number] Eosinophils (Bld) [#/Vol] 0.3 10*3/uL Normal 0.0-0.4 [facility]; [facility] Work Phone: Comment on above: PATIENT WAS FASTINGP ERFORMED BY: [address] [id number] Eosinophils Auto #/vol (Bld) 0.3 {x10E3/uL} Normal 0.0-0.4 [facility] Work Phone: Eosinophils/100 WBC (Bld) 6 % Normal [facility] Work Phone: Comment on above: PATIENT WAS FASTINGP ERFORMED BY: [address] [id number] Eosinophils/100 WBC Auto (Bld) 6 % Normal [facility] Work Phone: Erythrocyte distribution width (RBC) [Ratio] 13.2 % Normal 12.3-15.4 [facility] Work Phone: Comment on above: PATIENT WAS FASTINGP ERFORMED BY: BIANCA [facility] Wxfqsa6147 Val[address] Roadblin [place] [id number] Erythrocyte distribution width Auto Ratio (RBC) 13.2 % Normal 12.3-15.4 [facility] Work Phone: Hematocrit (Bld) [Volume fraction] 43.8 % Normal 37.5-51.0 [facility] Work Phone: Comment on above: PATIENT WAS FASTINGP ERFORMED BY: BIANCA [facility] Gyuaur4600 Valero RoadNovant Healthin [place] [id number] Hematocrit Auto Volume Fraction (Bld) 43.8 % Normal 37.5-51.0 [facility] Work Phone: Hemoglobin mass conc (Bld) 14.9 g/dL Normal 12.6-17.7 [facility] Work Phone: Comment on above: PATIENT WAS FASTINGP ERFORMED BY: BIANCA [facility] Bvssoo[address] [facility]in [place] [id number] Immature granulocytes #/vol (Bld) 0.0 {x10E3/uL} Normal 0.0-0.1 [facility] Work Phone: Comment on above: PATIENT WAS FASTINGP ERFORMED BY: BIANCA [facility] Utjwub39[address] [facility]in [place] [id number] Immature granulocytes (Bld) [#/Vol] 0.0 10*3/uL Normal 0.0-0.1 [facility]; [facility] Work Phone: Comment on above: PATIENT WAS FASTINGP ERFORMED BY: BIANCA [facility] Mpeosy[address] [facility] Centerblin [place] [id number] Immature granulocytes/100 WBC (Bld) 0 % Normal [facility] Work Phone: Comment on above: PATIENT WAS FASTINGP ERFORMED BY: [facility] Gyejww5987 [address] Roadblin [place] [id number] Lymphocytes (Bld) [#/Vol] 1.4 {x10E3/uL} Normal 0.7-3.1 [facility] Work Phone: Comment on above: PATIENT WAS FASTINGP ERFORMED BY: [facility]6370 [facility] [id number] Lymphocytes (Bld) [#/Vol] 1.4 10*3/uL Normal 0.7-3.1 [facility]; [facility] Work Phone: Comment on above: PATIENT WAS FASTINGP ERFORMED BY: [place] 7358370 [facility] [id number] Lymphocytes Auto #/vol (Bld) 1.4 {x10E3/uL} Normal 0.7-3.1 [facility] Work Phone: Lymphocytes/100 WBC (Bld) 31 % Normal [facility] Work Phone: Comment on above: PATIENT WAS FASTINGP ERFORMED BY: [place] 7358370 [facility] [id number] Lymphocytes/100 WBC Auto (Bld) 31 % Normal [facility] Work Phone: MCH (RBC) [Entitic mass] 29.0 pg Normal 26.6-33.0 [facility] Work Phone: Comment on above: PATIENT WAS FASTINGP ERFORMED BY: [place] 7358370 [facility] [id number] MCH Auto Entitic mass (RBC) 29.0 pg Normal 26.6-33.0 [facility] Internal [facility] Work Phone: MCHC (RBC) [Mass/Vol] 34.0 g/dL Normal 31.5-35.7 [facility] Internal Medicine Work Phone: Comment on above: PATIENT WAS FASTINGP ERFORMED BY: [place] 7358370 [facility] [id number] MCHC Auto mass conc (RBC) 34.0 g/dL Normal 31.5-35.7 [facility] Work Phone: MCV (RBC) [Entitic vol] 85 fL Normal 79-97 C omprehensive Internal Medicine Work Phone: Comment on above: PATIENT WAS FASTINGP ERFORMED BY: BIANCA Morganlin6370 [facility] [id number] MCV Auto Entitic volume (RBC) 85 fL Normal 79-97 [facility] Work Phone: Monocytes (Bld) [#/Vol] 0.3 {x10E3/uL} Normal 0.1-0.9 [facility] Work Phone: Comment on above: PATIENT WAS FASTINGP ERFORMED BY: BIANCA Morganlin6370 [facility] [id number] Monocytes (Bld) [#/Vol] 0.3 10*3/uL Normal 0.1-0.9 [facility]; [facility] Work Phone: Comment on above: PATIENT WAS FASTINGP ERFORMED BY: BIANCA Morganlin6370 [facility] [id number] Monocytes Auto #/vol (Bld) 0.3 {x10E3/uL} Normal 0.1-0.9 [facility] Work Phone: Monocytes/100 WBC (Bld) 6 % Normal C omprehensive Internal Medicine Work Phone: Comment on above: PATIENT WAS FASTINGP ERFORMED BY: BIANCA Morganlin6370 [facility] [id number] Monocytes/100 WBC Auto (Bld) 6 % Normal [facility] Work Phone: Neutrophils (Bld) [#/Vol] 2.5 {x10E3/uL} Normal 1.4-7.0 [facility] Work Phone: Comment on above: PATIENT WAS FASTINGP ERFORMED BY: BIANCA [facility]Lee MorganCnmmie3222 [facility] [id number] Neutrophils (Bld) [#/Vol] 2.5 10*3/uL Normal 1.4-7.0 [facility]; [facility] Work Phone: Comment on above: PATIENT WAS FASTINGP ERFORMED BY: BIANCA LabCopaolo MorganLnypxm9198 Val[address] RoadDublin [place] [id number] Neutrophils Auto #/vol (Bld) 2.5 {x10E3/uL} Normal 1.4-7.0 [facility] Work Phone: Neutrophils/100 WBC (Bld) 55 % Normal [facility] Work Phone: Comment on above: PATIENT WAS FASTINGP ERFORMED BY: BIANCA [facility] Varryl8494 [address] RoadDublin [place] [id number] Neutrophils/100 WBC Auto (Bld) 55 % Normal [facility] Work Phone: Platelets (Bld) [#/Vol] 241 {x10E3/uL} Normal 150-379 [facility] Work Phone: Comment on above: PATIENT WAS FASTINGP ERFORMED BY: BIANCA [facility] Dfmmue3509 [address] RoadDublin [place] [id number] Platelets (Bld) [#/Vol] 241 10*3/uL Normal 150-379 [facility]; [facility] Work Phone: Comment on above: PATIENT WAS FASTINGP ERFORMED BY: BIANCA [facility] Sqotnx9755 [address] RoadDublin [place] [id number] Platelets Auto #/vol (Bld) 241 {x10E3/uL} Normal 150-379 [facility] Work Phone: RBC (Bld) [#/Vol] 5.13 {x10E6/uL} Normal 4.14-5.80 [facility] Internal Medicine Work Phone: Comment on above: PATIENT WAS FASTINGP ERFORMED BY: BIANCA [facility] Phauaf6406 [address] RoadDublin [place] [id number] RBC (Bld) [#/Vol] 5.13 10*6/uL Normal 4.14-5.80 [facility] Internal Medicine; [facility] Work Phone: Comment on above: PATIENT WAS FASTINGP ERFORMED BY: BIANCA [facility] Lksfwq8479 [address] RoadDublin [place] [id number] RBC Auto #/vol (Bld) 5.13 {x10E6/uL} Normal 4.14-5.80 [facility] Work Phone: WBC (Bld) [#/Vol] 4.5 {x10E3/uL} Normal 3.4-10.8 [facility] prehensive Internal Medicine Work Phone: Comment on above: PATIENT WAS FASTINGP ERFORMED BY: BIANCA [facility] Zevvyr9349 [facility] [id number] WBC (Bld) [#/Vol] 4.5 10*3/uL Normal 3.4-10.8 [facility] Internal Medicine; [facility] Work Phone: Comment on above: PATIENT WAS FASTINGP ERFORMED BY: BIANCA LabCopaolo Swbawz2063 [facility] [id number] WBC Auto #/vol (Bld) 4.5 {x10E3/uL} Normal 3.4-10.8 [facility] Work Phone: HgA1C , Office ([phone])Ordere d By: Nadia Valerio on 08-01-2017 Hemoglobin A1c/Hemoglobin.total mass fraction (Bld) 5.4 % Normal 4.6 - 7.1 Comprehensiv e Internal Medicine Work Phone: LIPID PANEL ([phone])Ordered B y: Inspector Crystal on 08-01-2017 Cholesterol in HDL mass conc 58 mg/dL Normal [facility] Work Phone: Comment on above: PATIENT WAS FASTINGP ERFORMED BY: BIANCA [facility] Etrnka6339 [facility] [id number] Cholesterol in LDL mass conc 150 mg/dL Abnormal 0-99 [facility] Work Phone: Comment on above: PATIENT WAS FASTINGP ERFORMED BY: BIANCA [facility] Hwvdml1239 [facility] [id number] Cholesterol in LDL/Cholesterol in HDL mass ratio 2.6 {ratio_units} Normal 0.0-3.6 [facility] Work Phone: Comment on above: LDL/HDL Ratio Men Wo men 1/2 Avg.Risk 1.0 1.5 Avg.Risk 3.6 3.2 2X Avg.Risk 6.2 5.0 3X Avg.Risk 8.0 6.1 PATIENT WAS FASTINGP ERFORMED BY: BIANCA MaximinoLee MorganHkljbx9780 [facility] [id number] Cholesterol in VLDL mass conc 18 mg/dL Normal 5-40 [facility] Work Phone: Comment on above: PATIENT WAS FASTINGP ERFORMED BY: BIANCA Morganlin6370 [facility] [id number] Cholesterol mass conc 226 mg/dL Abnormal 100-199 Com prehensive Internal Medicine Work Phone: Comment on above: PATIENT WAS FASTINGP ERFORMED BY: BIANCA Morganlin6370 [facility] [id number] Triglyceride mass conc 89 mg/dL Normal 0-149 Co mprehensive Internal Medicine Work Phone: Comment on above: PATIENT WAS FASTINGP ERFORMED BY: BIANCA Morganlin6370 [facility] [id number] METABOLIC PANEL, COMPREHENSI VE (29726)Ordered By: Inspector Crystal on 08-01-2017 Albumin mass conc 4.4 g/dL Normal 3.5-5.5 Compreh [facility] Internal Medicine Work Phone: Comment on above: PATIENT WAS FASTINGP ERFORMED BY: BIANCA Alvarez Vtdgbu8058 [facility] [id number] Albumin/Globulin mass ratio 1.8 {ratio} Normal 1.2-2.2 [facility] Work Phone: Comment on above: PATIENT WAS FASTINGP ERFORMED BY: BIANCA LabLee MorganYweqvh6608 [facility] [id number] ALP [Catalytic activity/Vol] 60 U/L Normal 39-117 [facility]; [facility] Work Phone: Comment on above: PATIENT WAS FASTINGP ERFORMED BY: BIANCA LabLee MorganKpnqqp8271 [facility] [id number] ALP enzyme act/vol 60 [iU]/L Normal 39-117 Compre [facility] Internal Medicine Work Phone: Comment on above: PATIENT WAS FASTINGP ERFORMED BY: BIANCA LabLee Sequeira6370 [address]Dublin [place] [id number] ALT [Catalytic activity/Vol] 21 U/L Normal 0-44 [facility]; [facility] Work Phone: Comment on above: PATIENT WAS FASTINGP ERFORMED BY: BIANCA LabLee MorganMmtpol8310 [address] RoadDublin [place] [id number] ALT enzyme act/vol 21 [iU]/L Normal 0-44 [facility] Internal Medicine Work Phone: Comment on above: PATIENT WAS FASTINGP ERFORMED BY: BIANCA Morganlin6370 [address]Dublin [place] [id number] AST [Catalytic activity/Vol] 18 U/L Normal 0-40 [facility]; [facility] Work Phone: Comment on above: PATIENT WAS FASTINGP ERFORMED BY: BIANCA Morganlin6370 [address]Dublin [place] [id number] AST enzyme act/vol 18 [iU]/L Normal 0-40 [facility] Internal Medicine Work Phone: Comment on above: PATIENT WAS FASTINGP ERFORMED BY: BIANCA Morganlin[address] [facility]in [place] [id number] Bilirubin mass conc 0.3 mg/dL Normal 0.0-1.2 [facility] Internal Medicine Work Phone: Comment on above: PATIENT WAS FASTINGP ERFORMED BY: BIANCA Morganlin6370 [address] [place] [id number] Calcium mass conc 9.4 mg/dL Normal 8.7-10.2 [facility] Internal Medicine Work Phone: Comment on above: PATIENT WAS FASTINGP ERFORMED BY: BIANCA LabCopaolo MorganBzqaem1728 [address] RoadDublin [place] [id number] Chloride molar conc 100 mmol/L Normal 96-106 [facility] Internal Medicine Work Phone: Comment on above: PATIENT WAS FASTINGP ERFORMED BY: BIANCA Morganlin[address] [facility] [id number] CO2 molar conc 24 mmol/L Normal 18-29 Comprehens linh Internal Medicine Work Phone: Comment on above: PATIENT WAS FASTINGP ERFORMED BY: BIANCA LabCopaolo MorganTqkwyw6364 [address] [facility] [id number] Creatinine mass conc 0.97 mg/dL Normal 0.76-1.27 Comp rehensive Internal Medicine Work Phone: Comment on above: PATIENT WAS FASTINGP ERFORMED BY: LabCoRobert Wood Johnson University HospitalFvqgcr2463 [facility] [id number] GFR/1.73 sq M predicted among blacks CKD-EPI vol rate/area (S/P/Bld) 100 mL/min/1.73 Normal Comprehe nsive Internal Medicine Work Phone: Comment on above: PATIENT WAS FASTINGP ERFORMED BY: [facility]6370 [facility] [id number] GFR/1.73 sq M predicted among non-blacks CKD-EPI vol rate/area (S/P/Bld) 87 mL/min/1.73 Normal [facility] Work Phone: Comment on above: PATIENT WAS FASTINGP ERFORMED BY: BIANCA LabElton Zifxxx2621 [facility] [id number] Globulin (S) [Mass/Vol] 2.5 g/dL Normal 1.5-4.5 C omprehensive Internal Medicine Work Phone: Comment on above: PATIENT WAS FASTINGP ERFORMED BY: LabCo Stvgjr5486 [facility] [id number] Globulin Calculated mass conc (S) 2.5 g/dL Normal 1.5-4.5 [facility] Work Phone: Glucose mass conc 93 mg/dL Normal 65-99 Compreh ensive Internal Medicine Work Phone: Comment on above: PATIENT WAS FASTINGP ERFORMED BY: [facility]Christian [facility] Swfiqy7765 [facility] [id number] Potassium molar conc 4.5 mmol/L Normal 3.5-5.2 Comp rehensive Internal Medicine Work Phone: Comment on above: PATIENT WAS FASTINGP ERFORMED BY: BIANCA Vickypaolo MorganAfiymd7785 [address] [facility] [id number] Protein mass conc 6.9 g/dL Normal 6.0-8.5 Compreh ensive Internal Medicine Work Phone: Comment on above: PATIENT WAS FASTINGP ERFORMED BY: BIANCA LabLee MorganPlwica47[address] [facility] [id number] Sodium molar conc 141 mmol/L Normal 134-144 Compreh ensive Internal Medicine Work Phone: Comment on above: PATIENT WAS FASTINGP ERFORMED BY: BIANCA MaximinoLee MorganCoidhq4656 [address] [facility] [id number] Urea nitrogen mass conc 11 mg/dL Normal 6-24 C omprehensive Internal Medicine Work Phone: Comment on above: PATIENT WAS FASTINGP ERFORMED BY: BIANCA Morganlin6370 [facility] [id number] Urea nitrogen/Creatinine mass ratio 11 mg/mg Normal 9-20 [facility] Work Phone: Comment on above: PATIENT WAS FASTINGP ERFORMED BY: BIANCA Morganlin6370 [facility] [id number] MICROALBUMINOrdered By: Syst em Collection Systems Technician on 08-01-2017 Albumin DL <= 20 mg/L (U) [Mass/Vol] mg/dL Normal [facility]; [facility] Work Phone: Comment on above: PATIENT WAS FASTINGP ERFORMED BY: BIANCA LabLee MorganDfunjm99[address] [facility] [id number] Albumin DL <= 20 mg/L mass conc (U) mg/dL Normal [facility] Work Phone: Comment on above: PATIENT WAS FASTINGP ERFORMED BY: BIANCA LabLee MorganOqiqxe49[address] [facility] [id number] Albumin/Creatinine mass ratio (U) MALD Abnormal 0.0-30.0 [facility] Work Phone: Comment on above: This result is below the assay's limit of quantitation indicating adilute specimen, potentially due to diurnal variation. Considerrecollection at a time likely to provide a more concentrated urine. PATIENT WAS FASTINGP ERFORMED BY: [employer]6370 [facility] [id number] Creatinine mass conc (U) 100.7 mg/dL Normal [facility] Work Phone: Comment on above: PATIENT WAS FASTINGP ERFORMED BY: [employer]6370 [facility] [id number] Microscopic ExaminationOrder ed By: Inspector Crystal on 08-01-2017 Bacteria LM.HPF #/area (Urine sed) None seen Normal [facility] Work Phone: Epithelial cells LM.HPF #/area (Urine sed) None seen Normal 0 - 10 [facility] Work Phone: Mucus LM Ql (Urine sed) Present Normal C omprehensive Internal Medicine Work Phone: RBC LM.HPF #/area (Urine sed) None seen Normal 0 - 2 [facility] Work Phone: WBC LM.HPF #/area (Urine sed) 0-5 Normal 0 - 5 [facility] Work Phone: PSA (PROSTATE SPECIFIC ANTIG EN) (V76.44)Ordered By: Inspector Crystal on 08-01-2017 Prostate specific Ag mass conc 0.6 ng/mL Normal 0.0-4.0 [facility] Work Phone: Comment on above: Rupinder ECLIA methodol ogy. .According to the [employer], Serum PSA shoulddecrease and remain at undetectable levels after radicalprostatectomy. The AUA defines biochemical recurrence as an initialPSA value 0.2 ng/mL or greater followed by a subsequent confirmatoryPSA value 0.2 ng/mL or greater.Values obtained with different assay methods or kits cannot be usedinterchangeably. Results cannot be interpreted as absolute evidenceof the presence or absence of malignant disease. PATIENT WAS FASTINGP ERFORMED BY: [facility]6370 [facility] [id number] TSH ([id number])Ordered By: BITAKA Cards & Solutionse m Collection Systems Technician on 08-01-2017 Thyrotropin Qn 1.870 {uIU/mL} Normal 0.450-4.50 0 [facility] Work Phone: Comment on above: PATIENT WAS FASTINGP ERFORMED BY: BIANCA [facility] Frtxkx6264 [address] RoadDublin [place] [id number] URINALYSIS, W/ MICRO ([id number]) Ordered By: Inspector Crystal on 08-01-2017 Appearance Nom (U) Clear Normal Compre hensive Internal Medicine Work Phone: Comment on above: PATIENT WAS FASTINGP ERFORMED BY: BIANCA [facility] Tzutco8770 [address] RoadDublin [place] [id number] Bilirubin Ql (U) Negative Normal Comprehe nsive Internal Medicine Work Phone: Comment on above: PATIENT WAS FASTINGP ERFORMED BY: BIANCA [facility] Azuwnu5436 [address] RoadDublin [place] [id number] Bilirubin Ql (U) Negative Normal Comprehe nsive Internal Medicine; [facility] Work Phone: Comment on above: PATIENT WAS FASTINGP ERFORMED BY: BIANCA [facility] Kjjfkw4790 [address] RoadDublin [place] [id number] Color Nom (U) Yellow Normal Comprehensi ve Internal Medicine Work Phone: Comment on above: PATIENT WAS FASTINGP ERFORMED BY: BIANCA [facility] Djoqum5023 [address] RoadDublin [place] [id number] Glucose Ql (U) Negative Normal Comprehens linh Internal Medicine Work Phone: Comment on above: PATIENT WAS FASTINGP ERFORMED BY: BIANCA [facility] Pgusig0986 [address] RoadDublin [place] [id number] Glucose Ql (U) Negative Normal Comprehens linh Internal Medicine; [facility] Work Phone: Comment on above: PATIENT WAS FASTINGP ERFORMED BY: BIANCA [facility] Sviqly0561 [address]Dublin [place] [id number] Hemoglobin Ql (U) Negative Normal Compreh ensive Internal Medicine Work Phone: Comment on above: PATIENT WAS FASTINGP ERFORMED BY: BIANCA [facility] Oatcfl1580 [address] RoadDublin [place] [id number] Hemoglobin Ql (U) Negative Normal Compreh ensive Internal Medicine; [facility] Work Phone: Comment on above: PATIENT WAS FASTINGP ERFORMED BY: BIANCA [facility] MorganLqbmad1190 [address] RoadDublin [place] [id number] Hemoglobin Test strip Ql (U) Negative Normal [facility] Work Phone: Ketones Ql (U) Negative Normal Comprehens linh Internal Medicine Work Phone: Comment on above: PATIENT WAS FASTINGP ERFORMED BY: BIANCA LabC[facility] MorganEmqswd3702 [address] RoadDublin [place] [id number] Ketones Ql (U) Negative Normal Comprehens linh Internal Medicine; [facility] Work Phone: Comment on above: PATIENT WAS FASTINGP ERFORMED BY: BIANCA LabLee MorganRplljh7743 [address] RoadDublin [place] [id number] Leukocyte esterase Test strip Ql (U) Negative Normal [facility] Work Phone: Comment on above: PATIENT WAS FASTINGP ERFORMED BY: BIANCA LabC[facility] MorganCbvzox9330 [address] RoadDublin [place] [id number] Leukocyte esterase Test strip Ql (U) Negative Normal [facility]; [facility] Work Phone: Comment on above: PATIENT WAS FASTINGP ERFORMED BY: BIANCA Morganlin6370 [address]Dublin [place] [id number] Microscopic observation LM Nom (Urine sed) See below: Normal [facility] Work Phone: Comment on above: Microscopic was nathaniel cated and was performed. PATIENT WAS FASTINGP ERFORMED BY: BIANCA [facility] Rxeguh7808 [address] RoadDublin [place] [id number] Microscopic observation LM Nom (Urine sed) MICRON Normal [facility] Work Phone: Comment on above: Microscopic follows if indicated. PATIENT WAS FASTINGP ERFORMED BY: BAINCA [facility] Cctxac6285 [address] RoadDublin [place] [id number] Nitrite Ql (U) Negative Normal Comprehens linh Internal Medicine Work Phone: Comment on above: PATIENT WAS FASTINGP ERFORMED BY: BIANCA Sequeira6[address]Dublin [place] [id number] Nitrite Ql (U) Negative Normal Comprehens linh Internal Medicine; [facility] Work Phone: Comment on above: PATIENT WAS FASTINGP ERFORMED BY: BIANCA Sequeira6370 [address]Dublin [place] [id number] Nitrite Test strip Ql (U) Negative Normal [facility] Work Phone: pH (U) 6.5 [pH] Normal 5.0-7.5 [facility] Work Phone: Comment on above: PATIENT WAS FASTINGP ERFORMED BY: BIANCA Sequeira6[address]Dublin [place] [id number] pH Test strip (U) 6.5 [pH] Normal 5.0-7.5 Compreh ensive Internal Medicine Work Phone: Protein Ql (U) Negative Normal Comprehens linh Internal Medicine Work Phone: Comment on above: PATIENT WAS FASTINGP ERFORMED BY: BIANCA Peterson70 [address] RoadDublin [place] [id number] Protein Ql (U) Negative Normal Comprehens linh Internal Medicine; [facility] Work Phone: Comment on above: PATIENT WAS FASTINGP ERFORMED BY: BIANCA Sequeira6[address]ublin [place] [id number] Protein Test strip Ql (U) Negative Normal [facility] Work Phone: Specific gravity Relative Density (U) 1.017 1 Normal 1.005-1.03 0 [facility] Work Phone: Comment on above: PATIENT WAS FASTINGP ERFORMED BY: BIANCA Morganlin6[address]ublin [place] [id number] Urobilinogen (U) [Mass/Vol] 0.2 mg/dL Normal 0.2-1.0 [facility]; [facility] Work Phone: Comment on above: PATIENT WAS FASTINGP ERFORMED BY: [facility]6370 [facility] [id number] Urobilinogen Test strip mass conc (U) 0.2 mg/dL Normal 0.2-1.0 [facility] Work Phone: Comment on above: PATIENT WAS FASTINGP ERFORMED BY: [facility]6370 [facility] [id number] Blood Glucose , Office ([phone])Ordered By: Josefa Reinoso on 03-27-2016 Glucose Glucometer molar conc (BldC) 108 1 Normal [facility] Work Phone: CBC W/AUTO DIFF WBC (49989)O rdered By: Inspector Crystal on 03-27-2016 Basophils (Bld) [#/Vol] 0.0 {x10E3/uL} Normal 0.0-0.2 [facility] Work Phone: Comment on above: PATIENT WAS FASTINGP ERFORMED BY: [facility]6370 [facility] [id number] Information: [id number] Basophils (Bld) [#/Vol] 0.0 10*3/uL Normal 0.0-0.2 [facility]; [facility] Work Phone: Comment on above: PATIENT WAS FASTINGP ERFORMED BY: [facility]6370 [facility] [id number] Information: [id number] Basophils Auto #/vol (Bld) 0.0 {x10E3/uL} Normal 0.0-0.2 [facility] Work Phone: Basophils/100 WBC (Bld) 1 % Normal C omprehensive Internal Medicine Work Phone: Comment on above: PATIENT WAS FASTINGP ERFORMED BY: [facility]6370 [facility] [id number] Information: [id number] Basophils/100 WBC Auto (Bld) 1 % Normal [facility] Work Phone: Eosinophils (Bld) [#/Vol] 0.2 {x10E3/uL} Normal 0.0-0.4 [facility] Work Phone: Comment on above: PATIENT WAS FASTINGP ERFORMED BY: [place] 7358370 [facility] [id number] Information: [id number] Eosinophils (Bld) [#/Vol] 0.2 10*3/uL Normal 0.0-0.4 [facility]; [facility] Work Phone: Comment on above: PATIENT WAS FASTINGP ERFORMED BY: [address] [id number] Information: [id number] Eosinophils Auto #/vol (Bld) 0.2 {x10E3/uL} Normal 0.0-0.4 [facility] Work Phone: Eosinophils/100 WBC (Bld) 3 % Normal [facility] Work Phone: Comment on above: PATIENT WAS FASTINGP ERFORMED BY: [address] [id number] Information: [id number] Eosinophils/100 WBC Auto (Bld) 3 % Normal [facility] Work Phone: Erythrocyte distribution width (RBC) [Ratio] 13.1 % Normal 12.3-15.4 [facility] Work Phone: Comment on above: PATIENT WAS FASTINGP ERFORMED BY: [address] [id number] Information: [id number] Erythrocyte distribution width Auto Ratio (RBC) 13.1 % Normal 12.3-15.4 [facility] Work Phone: Hematocrit (Bld) [Volume fraction] 43.9 % Normal 37.5-51.0 [facility] Work Phone: Comment on above: PATIENT WAS FASTINGP ERFORMED BY: [address] [id number] Information: [id number] Hematocrit Auto Volume Fraction (Bld) 43.9 % Normal 37.5-51.0 [facility] Work Phone: Hemoglobin mass conc (Bld) 14.4 g/dL Normal 12.6-17.7 [facility] Work Phone: Comment on above: PATIENT WAS FASTINGP ERFORMED BY: [address] [id number] Information: [id number] Immature granulocytes #/vol (Bld) 0.0 {x10E3/uL} Normal 0.0-0.1 [facility] Work Phone: Comment on above: PATIENT WAS FASTINGP ERFORMED BY: [address] [id number] Information: [id number] Immature granulocytes (Bld) [#/Vol] 0.0 10*3/uL Normal 0.0-0.1 [facility]; [facility] Work Phone: Comment on above: PATIENT WAS FASTINGP ERFORMED BY: [address] [id number] Information: [id number] Immature granulocytes/100 WBC (Bld) 0 % Normal [facility] Work Phone: Comment on above: PATIENT WAS FASTINGP ERFORMED BY: [address] [id number] Information: [id number] Lymphocytes (Bld) [#/Vol] 1.2 {x10E3/uL} Normal 0.7-3.1 [facility] Work Phone: Comment on above: PATIENT WAS FASTINGP ERFORMED BY: [address] [id number] Information: [id number] Lymphocytes (Bld) [#/Vol] 1.2 10*3/uL Normal 0.7-3.1 [facility]; [facility] Work Phone: Comment on above: PATIENT WAS FASTINGP ERFORMED BY: BIANCA [place] [id number] [facility] [id number] Information: [id number] Lymphocytes Auto #/vol (Bld) 1.2 {x10E3/uL} Normal 0.7-3.1 [facility] Work Phone: Lymphocytes/100 WBC (Bld) 20 % Normal [facility] Work Phone: Comment on above: PATIENT WAS FASTINGP ERFORMED BY: BIANCA [place] 6669670 [facility] [id number] Information: [id number] Lymphocytes/100 WBC Auto (Bld) 20 % Normal [facility] Work Phone: MCH (RBC) [Entitic mass] 28.6 pg Normal 26.6-33.0 [facility] Work Phone: Comment on above: PATIENT WAS FASTINGP ERFORMED BY: BIANCA [place] 6669670 [facility] [id number] Information: [id number] MCH Auto Entitic mass (RBC) 28.6 pg Normal 26.6-33.0 [facility] Work Phone: MCHC (RBC) [Mass/Vol] 32.8 g/dL Normal 31.5-35.7 [facility] prehensive Internal Medicine Work Phone: Comment on above: PATIENT WAS FASTINGP ERFORMED BY: [place] 7358370 [facility] [id number] Information: [id number] MCHC Auto mass conc (RBC) 32.8 g/dL Normal 31.5-35.7 [facility] Work Phone: MCV (RBC) [Entitic vol] 87 fL Normal 79-97 C omprehensive Internal Medicine Work Phone: Comment on above: PATIENT WAS FASTINGP ERFORMED BY: BIANCA [address] [place] [id number] Information: [id number] MCV Auto Entitic volume (RBC) 87 fL Normal 79-97 [facility] Work Phone: Monocytes (Bld) [#/Vol] 0.4 {x10E3/uL} Normal 0.1-0.9 [facility] Work Phone: Comment on above: PATIENT WAS FASTINGP ERFORMED BY: [address] [id number] Information: [id number] Monocytes (Bld) [#/Vol] 0.4 10*3/uL Normal 0.1-0.9 [facility]; [facility] Work Phone: Comment on above: PATIENT WAS FASTINGP ERFORMED BY: [place] 7358370 [facility] [id number] Information: [id number] Monocytes Auto #/vol (Bld) 0.4 {x10E3/uL} Normal 0.1-0.9 [facility] Work Phone: Monocytes/100 WBC (Bld) 7 % Normal C omprehensive Internal Medicine Work Phone: Comment on above: PATIENT WAS FASTINGP ERFORMED BY: [facility] [id number] Information: [id number] Monocytes/100 WBC Auto (Bld) 7 % Normal [facility] Work Phone: Neutrophils (Bld) [#/Vol] 4.3 {x10E3/uL} Normal 1.4-7.0 [facility] Work Phone: Comment on above: PATIENT WAS FASTINGP ERFORMED BY: [place] 7358370 [facility] [id number] Information: [id number] Neutrophils (Bld) [#/Vol] 4.3 10*3/uL Normal 1.4-7.0 [facility]; [facility] Work Phone: Comment on above: PATIENT WAS FASTINGP ERFORMED BY: BIANCA [facility]6370 [facility] [id number] Information: [id number] Neutrophils Auto #/vol (Bld) 4.3 {x10E3/uL} Normal 1.4-7.0 [facility] Work Phone: Neutrophils/100 WBC (Bld) 69 % Normal [facility] Work Phone: Comment on above: PATIENT WAS FASTINGP ERFORMED BY: BIANCA [place] 6669670 [facility] [id number] Information: [id number] Neutrophils/100 WBC Auto (Bld) 69 % Normal [facility] Work Phone: Platelets (Bld) [#/Vol] 252 {x10E3/uL} Normal 150-379 [facility] Work Phone: Comment on above: PATIENT WAS FASTINGP ERFORMED BY: [place] 7358370 [facility] [id number] Information: [id number] Platelets (Bld) [#/Vol] 252 10*3/uL Normal 150-379 [facility]; [facility] Work Phone: Comment on above: PATIENT WAS FASTINGP ERFORMED BY: [place] 7358370 [facility] [id number] Information: [id number] Platelets Auto #/vol (Bld) 252 {x10E3/uL} Normal 150-379 [facility] Work Phone: RBC (Bld) [#/Vol] 5.04 {x10E6/uL} Normal 4.14-5.80 [facility] Internal Medicine Work Phone: Comment on above: PATIENT WAS FASTINGP ERFORMED BY: [facility]6370 [facility] [id number] Information: [id number] RBC (Bld) [#/Vol] 5.04 10*6/uL Normal 4.14-5.80 [facility]; [facility] Work Phone: Comment on above: PATIENT WAS FASTINGP ERFORMED BY: BIANCA MaximinoLee Btkceg1389 [facility] [id number] Information: [id number] RBC Auto #/vol (Bld) 5.04 {x10E6/uL} Normal 4.14-5.80 [facility] Work Phone: WBC (Bld) [#/Vol] 6.2 {x10E3/uL} Normal 3.4-10.8 [facility] Internal Medicine Work Phone: Comment on above: PATIENT WAS FASTINGP ERFORMED BY: BIANCA [employer] [id number] Information: [id number] WBC (Bld) [#/Vol] 6.2 10*3/uL Normal 3.4-10.8 [facility]; [facility] Work Phone: Comment on above: PATIENT WAS FASTINGP ERFORMED BY: BIANCA CodeSquareOscar [place] 4023270 [facility] [id number] Information: [id number] WBC Auto #/vol (Bld) 6.2 {x10E3/uL} Normal 3.4-10.8 [facility] Work Phone: HgA1C , Office ([id number])Ordere d By: Josefa Reinoso on 03-27-2016 Hemoglobin A1c/Hemoglobin.total mass fraction (Bld) 5.5 % Normal 4.6 - 7.1 Comprehensiv e Internal Medicine Work Phone: LIPID PANEL ([id number])Ordered B y: Inspector Crystal on 03-27-2016 Cholesterol in HDL mass conc 61 mg/dL Normal [facility] Work Phone: Comment on above: According to ATP-III Guidelines, HDL-C >59 mg/dL is considered anegative risk factor for CHD. PATIENT WAS FASTINGP ERFORMED BY: BIANCA [employer]06 Young StreetDublin [place] [id number] Cholesterol in LDL mass conc 133 mg/dL Abnormal 0-99 [facility] Work Phone: Comment on above: PATIENT WAS FASTINGP ERFORMED BY: BIANCA Rocío Morganlin6370 [facility] [id number] Cholesterol in LDL/Cholesterol in HDL mass ratio 2.2 {ratio_units} Normal 0.0-3.6 [facility] Work Phone: Comment on above: LDL/HDL Ratio Men Wo men 1/2 Avg.Risk 1.0 1.5 Avg.Risk 3.6 3.2 2X Avg.Risk 6.2 5.0 3X Avg.Risk 8.0 6.1 PATIENT WAS FASTINGP ERFORMED BY: BIANCA Vickypaolo Esvtak7323 [facility] [id number] Cholesterol in VLDL mass conc 20 mg/dL Normal 5-40 [facility] Work Phone: Comment on above: PATIENT WAS FASTINGP ERFORMED BY: BIANCA VickyOscar [place] 4023270 [facility] [id number] Cholesterol mass conc 214 mg/dL Abnormal 100-199 Com prehensive Internal Medicine Work Phone: Comment on above: PATIENT WAS FASTINGP ERFORMED BY: BIANCA Vickypaolo Lwjbzq1279 [facility] [id number] Triglyceride mass conc 99 mg/dL Normal 0-149 Co mprehensive Internal Medicine Work Phone: Comment on above: PATIENT WAS FASTINGP ERFORMED BY: BIANCA [facility]inoH[facility]6370 [facility] [id number] METABOLIC PANEL, COMPREHENSI VE (22663)Ordered By: Inspector Crystal on 03-27-2016 Albumin mass conc 4.2 g/dL Normal 3.5-5.5 Compreh ensive Internal Medicine Work Phone: Comment on above: PATIENT WAS FASTINGP ERFORMED BY: BIANCA [facility]6370 [facility] [id number] Albumin/Globulin mass ratio 1.8 {ratio} Normal 1.1-2.5 [facility] Work Phone: Comment on above: PATIENT WAS FASTINGP ERFORMED BY: BIANCA MaximinoLee MorganIbeqkj9707 [address] RoadDublin [place] [id number] ALP [Catalytic activity/Vol] 55 U/L Normal 39-117 [facility]; [facility] Work Phone: Comment on above: PATIENT WAS FASTINGP ERFORMED BY: BIANCA Vickypaolo MorganIwwcpj5907 [address] RoadDublin [place] [id number] ALP enzyme act/vol 55 [iU]/L Normal 39-117 [facility] Internal Medicine Work Phone: Comment on above: PATIENT WAS FASTINGP ERFORMED BY: BIANCA Morganlin[address]Dublin [place] [id number] ALT [Catalytic activity/Vol] 21 U/L Normal 0-44 [facility]; [facility] Work Phone: Comment on above: PATIENT WAS FASTINGP ERFORMED BY: BIANCA Morganlin[address] RoadNovant Healthin [place] [id number] ALT enzyme act/vol 21 [iU]/L Normal 0-44 [facility] Internal Medicine Work Phone: Comment on above: PATIENT WAS FASTINGP ERFORMED BY: BIANCA Morganlin[address] [facility]in [place] [id number] AST [Catalytic activity/Vol] 19 U/L Normal 0-40 [facility]; [facility] Work Phone: Comment on above: PATIENT WAS FASTINGP ERFORMED BY: BIANCA Morganlin6[address] RoadNovant Healthin [place] [id number] AST enzyme act/vol 19 [iU]/L Normal 0-40 [facility] Internal Medicine Work Phone: Comment on above: PATIENT WAS FASTINGP ERFORMED BY: BIANCA MaximinoLee MorganOofmgr9898 [address] RoadDublin [place] [id number] Bilirubin mass conc 0.5 mg/dL Normal 0.0-1.2 [facility] Internal Medicine Work Phone: Comment on above: PATIENT WAS FASTINGP ERFORMED BY: BIANCA Morganlin[address]Dublin [place] [id number] Calcium mass conc 9.2 mg/dL Normal 8.7-10.2 Compreh ensive Internal Medicine Work Phone: Comment on above: PATIENT WAS FASTINGP ERFORMED BY: [facility] Mfpdbl2930 [address] RoadDublin [place] [id number] Chloride molar conc 103 mmol/L Normal 97-108 Compr ehensive Internal Medicine Work Phone: Comment on above: PATIENT WAS FASTINGP ERFORMED BY: [facility] Ljmamr9190 [address] RoadNovant Healthin [place] [id number] CO2 molar conc 25 mmol/L Normal 18-29 Comprehens linh Internal Medicine Work Phone: Comment on above: PATIENT WAS FASTINGP ERFORMED BY: [facility] Jakyul[address] [facility]in [place] [id number] Creatinine mass conc 0.83 mg/dL Normal 0.76-1.27 Comp rehensive Internal Medicine Work Phone: Comment on above: PATIENT WAS FASTINGP ERFORMED BY: [facility] Aulzdx9084 Valero RoadNovant Healthin [place] [id number] GFR/1.73 sq M predicted among blacks CKD-EPI vol rate/area (S/P/Bld) 115 mL/min/1.73 Normal Comprehe nsive Internal Medicine Work Phone: Comment on above: PATIENT WAS FASTINGP ERFORMED BY: [facility] Zavpur8596 Valeor RoadCaroMont Regional [facility] Center [facility] [id number] GFR/1.73 sq M predicted among non-blacks CKD-EPI vol rate/area (S/P/Bld) 99 mL/min/1.73 Normal [facility] Work Phone: Comment on above: PATIENT WAS FASTINGP ERFORMED BY: CB [facility] Cgwmor3623 Val[address] Roadblin [place] [id number] Globulin (S) [Mass/Vol] 2.4 g/dL Normal 1.5-4.5 C omprehensive Internal Medicine Work Phone: Comment on above: PATIENT WAS FASTINGP ERFORMED BY: BIANCA Perry Fxtvnc5636 [facility] [id number] Globulin Calculated mass conc (S) 2.4 g/dL Normal 1.5-4.5 [facility] Work Phone: Glucose mass conc 94 mg/dL Normal 65-99 Compreh ensive Internal Medicine Work Phone: Comment on above: PATIENT WAS FASTINGP ERFORMED BY: BIANCA Perry Tltsth2763 [facility] [id number] Potassium molar conc 4.5 mmol/L Normal 3.5-5.2 Comp rehensive Internal Medicine Work Phone: Comment on above: PATIENT WAS FASTINGP ERFORMED BY: BIANCA Perry Jprpan2384 [facility] [id number] Protein mass conc 6.6 g/dL Normal 6.0-8.5 Compreh ensive Internal Medicine Work Phone: Comment on above: PATIENT WAS FASTINGP ERFORMED BY: BIANCA Vicky Zialzi1121 [facility] [id number] Sodium molar conc 143 mmol/L Normal 134-144 Compreh ensive Internal Medicine Work Phone: Comment on above: PATIENT WAS FASTINGP ERFORMED BY: BIANCA Perry Enhkqc6528 [facility] [id number] Urea nitrogen mass conc 14 mg/dL Normal 6-24 C omprehensive Internal Medicine Work Phone: Comment on above: PATIENT WAS FASTINGP ERFORMED BY: [facility] Yzevbe6886 [facility] [id number] Urea nitrogen/Creatinine mass ratio 17 mg/mg Normal 9-20 [facility] Work Phone: Comment on above: PATIENT WAS FASTINGP ERFORMED BY: BIANCA LabElton Iodeau7965 [facility] [id number] MICROALBUMINOrdered By: Syst em Collection Systems Technician on 03-27-2016 Albumin DL <= 20 mg/L (U) [Mass/Vol] mg/dL Normal [facility]; [facility] Work Phone: Comment on above: PATIENT WAS FASTINGP ERFORMED BY: CB [facility] Gfepmb[address]4 [address] SystemsDublin [place] [id number] Albumin DL <= 20 mg/L mass conc (U) mg/dL Normal [facility] Work Phone: Comment on above: PATIENT WAS FASTINGP ERFORMED BY: CB [facility] Zfyhjz2070 [address] Systemsblin [place] [id number] Albumin/Creatinine mass ratio (U) <3.1 Normal 0.0-30.0 [facility] Work Phone: Comment on above: PATIENT WAS FASTINGP ERFORMED BY: CB [facility] Igwsxt0322 [address] RoadDublin [place] [id number] Creatinine mass conc (U) 96.2 mg/dL Normal [facility] Work Phone: Comment on above: PATIENT WAS FASTINGP ERFORMED BY: CB [facility] Rwwgmp2602 [address] Platform9 SystemsCaroMont Regional [facility] [id number] Microscopic ExaminationOrder ed By: Inspector Crystal on 03-27-2016 Bacteria LM.HPF #/area (Urine sed) Few Normal [facility] Work Phone: Epithelial cells LM.HPF #/area (Urine sed) 0-10 Normal 0 - 10 [facility] Work Phone: Mucus LM Ql (Urine sed) Present Normal C omprehensive Internal Medicine Work Phone: RBC LM.HPF #/area (Urine sed) 0-2 Normal 0 - 2 [facility] Work Phone: WBC LM.HPF #/area (Urine sed) 0-5 Normal 0 - 5 [facility] Work Phone: PSA (PROSTATE SPECIFIC ANTIG EN) ([id number])Ordered By: Inspector Crystal on 03-27-2016 Prostate specific Ag mass conc 0.7 ng/mL Normal 0.0-4.0 [facility] Work Phone: Comment on above: Rupinder ECLIA methodol ogy. .According to the [place] [employer], Serum PSA shoulddecrease and remain at undetectable levels after radicalprostatectomy. The AUA defines biochemical recurrence as an initialPSA value 0.2 ng/mL or greater followed by a subsequent confirmatoryPSA value 0.2 ng/mL or greater.Values obtained with different assay methods or kits cannot be usedinterchangeably. Results cannot be interpreted as absolute evidenceof the presence or absence of malignant disease. PATIENT WAS FASTINGP ERFORMED BY: BIANCA [facility] Rjwyrz2823 Valero RoadDublin [place] [id number] TSH ([id number])Ordered By: BITAKA Cards [employer] Solutionse m Collection Systems Technician on 03-27-2016 Thyrotropin Qn 0.867 {uIU/mL} Normal 0.450-4.50 0 [facility] Work Phone: Comment on above: PATIENT WAS FASTINGP ERFORMED BY: [facility] Dznrjf5460 Val[address] RoadDublin [place] [id number] URINALYSIS, W/ MICRO ([id number]) Ordered By: Inspector Crystal on 03-27-2016 Appearance Nom (U) Clear Normal Compre hensive [facility] Medicine Work Phone: Comment on above: PATIENT WAS FASTINGP ERFORMED BY: [facility] Bbsvmv9113 Valero RoadDublin [place] [id number] Bilirubin Ql (U) Negative Normal Comprehe nsive Internal Medicine Work Phone: Comment on above: PATIENT WAS FASTINGP ERFORMED BY: [facility] Wjqjkx2005 [address] RoadDublin [place] [id number] Bilirubin Ql (U) Negative Normal Comprehe nsive [facility] Medicine; [facility] Work Phone: Comment on above: PATIENT WAS FASTINGP ERFORMED BY: [facility] Ylbjjw1898 [address] RoadDublin [place] [id number] Color Nom (U) Yellow Normal Comprehensi ve Internal Medicine Work Phone: Comment on above: PATIENT WAS FASTINGP ERFORMED BY: [facility] Vkvxuf3831 [address] RoadDublin [place] [id number] Glucose Ql (U) Negative Normal Comprehens linh [facility] Medicine Work Phone: Comment on above: PATIENT WAS FASTINGP ERFORMED BY: [facility] Mjofmj8474 [address] RoadDublin [place] [id number] Glucose Ql (U) Negative Normal Comprehens linh [facility]; [facility] Work Phone: Comment on above: PATIENT WAS FASTINGP ERFORMED BY: BIANCA Sequeira6370 [address] RoadDublin [place] [id number] Hemoglobin Ql (U) Negative Normal Compreh ensive [facility] Medicine Work Phone: Comment on above: PATIENT WAS FASTINGP ERFORMED BY: BIANCA Morganlin6370 [address]Dublin [place] [id number] Hemoglobin Ql (U) Negative Normal Compreh ensive [facility] Medicine; [facility] Work Phone: Comment on above: PATIENT WAS FASTINGP ERFORMED BY: BIANCA Sequeira6[address]Dublin [place] [id number] Hemoglobin Test strip Ql (U) Negative Normal [facility] Work Phone: Ketones Ql (U) Negative Normal Comprehens linh [facility] Work Phone: Comment on above: PATIENT WAS FASTINGP ERFORMED BY: BIANCA Morganlin6370 [address]Dublin [place] [id number] Ketones Ql (U) Negative Normal Comprehens linh [facility] Medicine; [facility] Work Phone: Comment on above: PATIENT WAS FASTINGP ERFORMED BY: BIANCA Sequeira6370 [address]Dublin [place] [id number] Leukocyte esterase Test strip Ql (U) Negative Normal [facility] Work Phone: Comment on above: PATIENT WAS FASTINGP ERFORMED BY: BIANCA Morganlin6370 [address] RoadDublin [place] [id number] Leukocyte esterase Test strip Ql (U) Negative Normal [facility]; [facility] Work Phone: Comment on above: PATIENT WAS FASTINGP ERFORMED BY: BIANCA Morganlin6370 [address]Dublin [place] [id number] Microscopic observation LM Nom (Urine sed) MICRON Normal [facility] Work Phone: Comment on above: Microscopic follows if indicated. PATIENT WAS FASTINGP ERFORMED BY: BIANCA Alvarez Kbobzw7157 [address] RoadDublin [place] [id number] Microscopic observation LM Nom (Urine sed) See below: Normal [facility] Work Phone: Comment on above: Microscopic was nathaniel cated and was performed. PATIENT WAS FASTINGP ERFORMED BY: BIANCA [facility] MorganIddltv3978 Val[address] RoadDublin [place] [id number] Nitrite Ql (U) Negative Normal Comprehens linh [facility] Work Phone: Comment on above: PATIENT WAS FASTINGP ERFORMED BY: BIANCA [facility] Mtpymg2164 [address] RoadDublin [place] [id number] Nitrite Ql (U) Negative Normal Comprehens linh [facility] Medicine; [facility] Work Phone: Comment on above: PATIENT WAS FASTINGP ERFORMED BY: BIANCA [facility] Ddnnwd4585 [address] RoadDublin [place] [id number] Nitrite Test strip Ql (U) Negative Normal [facility] Work Phone: pH (U) 7.0 [pH] Normal 5.0-7.5 [facility] Work Phone: Comment on above: PATIENT WAS FASTINGP ERFORMED BY: BIANCA [facility] Llewln9144 [address] RoadDublin [place] [id number] pH Test strip (U) 7.0 [pH] Normal 5.0-7.5 Compreh ensive [facility] Medicine Work Phone: Protein Ql (U) Negative Normal Comprehens linh [facility] Work Phone: Comment on above: PATIENT WAS FASTINGP ERFORMED BY: BIANCA [facility] Ywjqrh8990 [address] RoadDublin [place] [id number] Protein Ql (U) Negative Normal Comprehens linh [facility]; [facility] Work Phone: Comment on above: PATIENT WAS FASTINGP ERFORMED BY: BIANCA [facility] Gxjcnl8269 [address] RoadDublin [place] [id number] Protein Test strip Ql (U) Negative Normal [facility] Work Phone: Specific gravity Relative Density (U) 1.019 1 Normal 1.005-1.03 0 [facility] Work Phone: Comment on above: PATIENT WAS FASTINGP ERFORMED BY: [employer] Tvhhqr4892 [facility]ALifeCare [facility] [id number] Urobilinogen (U) [Mass/Vol] 0.2 mg/dL Normal 0.2-1.0 [facility]; [facility] Work Phone: Comment on above: PATIENT WAS FASTINGP ERFORMED BY: [facility] Jmuyub1698 ValeroCertiRxLifeCare Hospitals [facility] [place] [id number] Urobilinogen Test strip mass conc (U) 0.2 mg/dL Normal 0.2-1.0 [facility] Work Phone: Comment on above: PATIENT WAS FASTINGP ERFORMED BY: [employer] Rmznmk8873 [facility]ALifeCare [facility] [id number] Comp. Metabolic Panel (14)Or dered By: Inspector Crystal on 03-04-2015 Albumin mass conc 4.2 g/dL Normal 3.5-5.5 [facility] Work Phone: Albumin/Globulin mass ratio 2.0 {ratio} Normal 1.1-2.5 [facility] Work Phone: ALP enzyme act/vol 51 [iU]/L Normal 39-117 [facility] Work Phone: ALT enzyme act/vol 26 [iU]/L Normal 0-44 [facility] Work Phone: AST enzyme act/vol 25 [iU]/L Normal 0-40 [facility] Internal [facility] Work Phone: Bilirubin mass conc 0.2 mg/dL Normal 0.0-1.2 [facility] Work Phone: Calcium mass conc 9.4 mg/dL Normal 8.7-10.2 [facility] Work Phone: Chloride molar conc 102 mmol/L Normal 97-108 Compr ensive Internal Medicine Work Phone: CO2 molar conc 26 mmol/L Normal 18-29 Comprehens linh Internal Medicine Work Phone: Creatinine mass conc 1.10 mg/dL Normal 0.76-1.27 Comp rehensive Internal Medicine Work Phone: GFR/1.73 sq M predicted among blacks CKD-EPI vol rate/area (S/P/Bld) 88 mL/min/1.73 Normal Comprehe nsive Internal Medicine Work Phone: GFR/1.73 sq M predicted among non-blacks CKD-EPI vol rate/area (S/P/Bld) 76 mL/min/1.73 Normal [facility] Work Phone: Globulin Calculated mass conc (S) 2.1 g/dL Normal 1.5-4.5 [facility] Work Phone: Glucose mass conc 96 mg/dL Normal 65-99 Compreh ensive Internal Medicine Work Phone: Potassium molar conc 4.4 mmol/L Normal 3.5-5.2 Comp rehensive Internal Medicine Work Phone: Protein mass conc 6.3 g/dL Normal 6.0-8.5 Compreh ensive [facility] Medicine Work Phone: Sodium molar conc 140 mmol/L Normal 134-144 Compreh ensive [facility] Medicine Work Phone: Urea nitrogen mass conc 15 mg/dL Normal 6-24 C omprehensive Internal Medicine Work Phone: Urea nitrogen/Creatinine mass ratio 14 mg/mg Normal 9-20 [facility] Work Phone: Hemoglobin G0bTxiyxuf By: Rafter stem Collection Systems Technician on 03-04-2015 Hemoglobin A1c/Hemoglobin.total mass fraction (Bld) 5.4 % Normal 4.8-5.6 Comprehensiv e Internal Medicine Work Phone: Comment on above: . Increased risk for diabetes: 5.7 - 6.4 Diabetes: >6.4 Glycemic control for adults with diabetes: <7.0 Lipid Panel With LDL/HDL Rat ioOrdered By: Inspector Crystal on 03-04-2015 Cholesterol in HDL mass conc 54 mg/dL Normal [facility] Work Phone: Comment on above: According to ATP-III Guidelines, HDL-C >59 mg/dL is considered anegative risk factor for CHD. Cholesterol in LDL mass conc 107 mg/dL Abnormal 0-99 [facility] Work Phone: Cholesterol in LDL/Cholesterol in HDL mass ratio 2.0 {ratio_units} Normal 0.0-3.6 [facility] Work Phone: Comment on above: LDL/HDL Ratio Men Wo men 1/2 Avg.Risk 1.0 1.5 Avg.Risk 3.6 3.2 2X Avg.Risk 6.2 5.0 3X Avg.Risk 8.0 6.1 Cholesterol in VLDL mass conc 15 mg/dL Normal 5-40 [facility] Work Phone: Cholesterol mass conc 176 mg/dL Normal 100-199 Com prehensive Internal Medicine Work Phone: Triglyceride mass conc 74 mg/dL Normal 0-149 Co mprehensive [facility] Work Phone: HgA1C , Office ([phone])Ordere d By: Laure Faith on 11-11-2014 Hemoglobin A1c/Hemoglobin.total mass fraction (Bld) 5.7 % Normal 4.6 - 7.1 Comprehensiv e Internal Medicine Work Phone: ESTEPHANIE (ANTINUCLEAR ANTIBODY) ( [id number])Ordered By: Inspector Crystal on 07-06-2014 Nuclear Ab Ql (S) Negative Normal Compreh ensive [facility] Medicine Work Phone: Comment on above: PATIENT WAS FASTINGP ERFORMED BY: BIANCA ioSafe70 [facility]ALifeCare [facility] [id number] Nuclear Ab Ql (S) Negative Normal Compreh ensive Internal Medicine; [facility] Work Phone: Comment on above: PATIENT WAS FASTINGP ERFORMED BY: TetraLogic PharmaceuticalsOur Lady of Bellefonte Hospital [id number] C-REACTIVE PROTEIN ([id number])Or dered By: Inspector Crystal on 07-06-2014 CRP mass conc 0.3 mg/L Normal 0.0-4.9 Comprehensi ve Internal Medicine Work Phone: Comment on above: PATIENT WAS FASTINGP ERFORMED BY: [facility]6370 [facility] [id number] CBC W/AUTO DIFF WBC ([id number])O rdered By: Inspector Crystal on 07-06-2014 Basophils (Bld) [#/Vol] 0.1 {x10E3/uL} Normal 0.0-0.2 [facility] Work Phone: Comment on above: PATIENT WAS FASTINGP ERFORMED BY: [address] [id number] Information: [id number] Basophils (Bld) [#/Vol] 0.1 10*3/uL Normal 0.0-0.2 [facility]; [facility] Work Phone: Comment on above: PATIENT WAS FASTINGP ERFORMED BY: [address] [id number] Information: [id number] Basophils Auto #/vol (Bld) 0.1 {x10E3/uL} Normal 0.0-0.2 [facility] Work Phone: Basophils/100 WBC (Bld) 1 % Normal C omprehensive Internal Medicine Work Phone: Comment on above: PATIENT WAS FASTINGP ERFORMED BY: [facility]6[address] [facility] [id number] Information: [id number] Basophils/100 WBC Auto (Bld) 1 % Normal [facility] Work Phone: Eosinophils (Bld) [#/Vol] 0.1 {x10E3/uL} Normal 0.0-0.4 [facility] Work Phone: Comment on above: PATIENT WAS FASTINGP ERFORMED BY: [address] [id number] Information: [id number] Eosinophils (Bld) [#/Vol] 0.1 10*3/uL Normal 0.0-0.4 [facility]; [facility] Work Phone: Comment on above: PATIENT WAS FASTINGP ERFORMED BY: [place] 7358370 [facility] [id number] Information: [id number] Eosinophils Auto #/vol (Bld) 0.1 {x10E3/uL} Normal 0.0-0.4 [facility] Work Phone: Eosinophils/100 WBC (Bld) 2 % Normal [facility] Work Phone: Comment on above: PATIENT WAS FASTINGP ERFORMED BY: [address] [id number] Information: [id number] Eosinophils/100 WBC Auto (Bld) 2 % Normal [facility] Work Phone: Erythrocyte distribution width (RBC) [Ratio] 13.4 % Normal 12.3-15.4 [facility] Work Phone: Comment on above: PATIENT WAS FASTINGP ERFORMED BY: [address] [id number] Information: [id number] Erythrocyte distribution width Auto Ratio (RBC) 13.4 % Normal 12.3-15.4 [facility] Work Phone: Hematocrit (Bld) [Volume fraction] 45.8 % Normal 37.5-51.0 [facility] Work Phone: Comment on above: PATIENT WAS FASTINGP ERFORMED BY: [address] [id number] Information: [id number] Hematocrit Auto Volume Fraction (Bld) 45.8 % Normal 37.5-51.0 [facility] Work Phone: Hemoglobin mass conc (Bld) 14.7 g/dL Normal 12.6-17.7 [facility] Work Phone: Comment on above: PATIENT WAS FASTINGP ERFORMED BY: [place] 7358370 [facility] [id number] Information: [id number] Immature granulocytes #/vol (Bld) 0.0 {x10E3/uL} Normal 0.0-0.1 [facility] Work Phone: Comment on above: PATIENT WAS FASTINGP ERFORMED BY: [place] 7358370 [facility] [id number] Information: [id number] Immature granulocytes (Bld) [#/Vol] 0.0 10*3/uL Normal 0.0-0.1 [facility]; [facility] Work Phone: Comment on above: PATIENT WAS FASTINGP ERFORMED BY: [address] [id number] Information: [id number] Immature granulocytes/100 WBC (Bld) 0 % Normal [facility] Work Phone: Comment on above: PATIENT WAS FASTINGP ERFORMED BY: [address] [id number] Information: [id number] Lymphocytes (Bld) [#/Vol] 1.2 {x10E3/uL} Normal 0.7-3.1 [facility] Work Phone: Comment on above: PATIENT WAS FASTINGP ERFORMED BY: [address] [id number] Information: [id number] Lymphocytes (Bld) [#/Vol] 1.2 10*3/uL Normal 0.7-3.1 [facility]; [facility] Work Phone: Comment on above: PATIENT WAS FASTINGP ERFORMED BY: [address] [id number] Information: [id number] Lymphocytes Auto #/vol (Bld) 1.2 {x10E3/uL} Normal 0.7-3.1 [facility] Work Phone: Lymphocytes/100 WBC (Bld) 21 % Normal [facility] Work Phone: Comment on above: PATIENT WAS FASTINGP ERFORMED BY: [place] 7358370 [facility] [id number] Information: [id number] Lymphocytes/100 WBC Auto (Bld) 21 % Normal [facility] Work Phone: MCH (RBC) [Entitic mass] 27.4 pg Normal 26.6-33.0 [facility] Work Phone: Comment on above: PATIENT WAS FASTINGP ERFORMED BY: [place] 7358370 [facility] [id number] Information: [id number] MCH Auto Entitic mass (RBC) 27.4 pg Normal 26.6-33.0 [facility] Work Phone: MCHC (RBC) [Mass/Vol] 32.1 g/dL Normal 31.5-35.7 [facility] Internal Medicine Work Phone: Comment on above: PATIENT WAS FASTINGP ERFORMED BY: [address] [id number] Information: [id number] MCHC Auto mass conc (RBC) 32.1 g/dL Normal 31.5-35.7 [facility] Work Phone: MCV (RBC) [Entitic vol] 85 fL Normal 79-97 [facility] Internal Medicine Work Phone: Comment on above: PATIENT WAS FASTINGP ERFORMED BY: [address] [id number] Information: [id number] MCV Auto Entitic volume (RBC) 85 fL Normal 79-97 [facility] Work Phone: Monocytes (Bld) [#/Vol] 0.3 {x10E3/uL} Normal 0.1-0.9 [facility] Work Phone: Comment on above: PATIENT WAS FASTINGP ERFORMED BY: [address] [id number] Information: [id number] Monocytes (Bld) [#/Vol] 0.3 10*3/uL Normal 0.1-0.9 [facility]; [facility] Work Phone: Comment on above: PATIENT WAS FASTINGP ERFORMED BY: BIANCA [facility]6370 [facility] [id number] Information: [id number] Monocytes Auto #/vol (Bld) 0.3 {x10E3/uL} Normal 0.1-0.9 [facility] Work Phone: Monocytes/100 WBC (Bld) 6 % Normal C omprehensive Internal Medicine Work Phone: Comment on above: PATIENT WAS FASTINGP ERFORMED BY: BIANCA [address] [id number] Information: [id number] Monocytes/100 WBC Auto (Bld) 6 % Normal [facility] Work Phone: Neutrophils (Bld) [#/Vol] 4.0 {x10E3/uL} Normal 1.4-7.0 [facility] Work Phone: Comment on above: PATIENT WAS FASTINGP ERFORMED BY: BIANCA Morganlin6370 [facility] [id number] Information: [id number] Neutrophils (Bld) [#/Vol] 4.0 10*3/uL Normal 1.4-7.0 [facility]; [facility] Work Phone: Comment on above: PATIENT WAS FASTINGP ERFORMED BY: BIANCA [place] [id number] [facility] [id number] Information: [id number] Neutrophils Auto #/vol (Bld) 4.0 {x10E3/uL} Normal 1.4-7.0 [facility] Work Phone: Neutrophils/100 WBC (Bld) 70 % Normal [facility] Work Phone: Comment on above: PATIENT WAS FASTINGP ERFORMED BY: CB [facility]6370 [facility] [id number] Information: [id number] Neutrophils/100 WBC Auto (Bld) 70 % Normal [facility] Work Phone: Platelets (Bld) [#/Vol] 285 {x10E3/uL} Normal 150-379 [facility] Work Phone: Comment on above: PATIENT WAS FASTINGP ERFORMED BY: [address] [id number] Information: [id number] Platelets (Bld) [#/Vol] 285 10*3/uL Normal 150-379 [facility]; [facility] Work Phone: Comment on above: PATIENT WAS FASTINGP ERFORMED BY: BIANCA [address] [id number] Information: [id number] Platelets Auto #/vol (Bld) 285 {x10E3/uL} Normal 150-379 [facility] Work Phone: RBC (Bld) [#/Vol] 5.37 {x10E6/uL} Normal 4.14-5.80 [facility] Internal Medicine Work Phone: Comment on above: PATIENT WAS FASTINGP ERFORMED BY: BIANCA [place] [id number] [facility] [id number] Information: [id number] RBC (Bld) [#/Vol] 5.37 10*6/uL Normal 4.14-5.80 [facility] Internal Medicine; [facility] Work Phone: Comment on above: PATIENT WAS FASTINGP ERFORMED BY: [address] [id number] Information: [id number] RBC Auto #/vol (Bld) 5.37 {x10E6/uL} Normal 4.14-5.80 [facility] Work Phone: WBC (Bld) [#/Vol] 5.7 {x10E3/uL} Normal 3.4-10.8 [facility] prehensive Internal Medicine Work Phone: Comment on above: PATIENT WAS FASTINGP ERFORMED BY: BIANCA Sequeira6370 [facility] [id number] Information: [id number] WBC (Bld) [#/Vol] 5.7 10*3/uL Normal 3.4-10.8 [facility]; [facility] Work Phone: Comment on above: PATIENT WAS FASTINGP ERFORMED BY: BIANCA Morganlin6370 [facility] [id number] Information: [id number] WBC Auto #/vol (Bld) 5.7 {x10E3/uL} Normal 3.4-10.8 [facility] Work Phone: LIPID PANEL ([id number])Ordered B y: Inspector Crystal on 07-06-2014 Cholesterol in HDL mass conc 60 mg/dL Normal [facility] Work Phone: Comment on above: According to ATP-III Guidelines, HDL-C >59 mg/dL is considered anegative risk factor for CHD. PATIENT WAS FASTINGP ERFORMED BY: BIANCA Morganlin6370 [facility] [id number] Cholesterol in LDL mass conc 118 mg/dL Abnormal 0-99 [facility] Work Phone: Comment on above: PATIENT WAS FASTINGP ERFORMED BY: BIANCA Morganlin6370 [facility] [id number] Cholesterol in LDL/Cholesterol in HDL mass ratio 2.0 {ratio_units} Normal 0.0-3.6 [facility] Work Phone: Comment on above: PATIENT WAS FASTINGP ERFORMED BY: BIANCA MaximinoEltonOscar [place] [id number] [facility] [id number] Cholesterol in VLDL mass conc 13 mg/dL Normal 5-40 [facility] Work Phone: Comment on above: PATIENT WAS FASTINGP ERFORMED BY: BIANCA Alvarez Jaekgt[address] [facility] [id number] Cholesterol mass conc 191 mg/dL Normal 100-199 Com prehensive Internal Medicine Work Phone: Comment on above: PATIENT WAS FASTINGP ERFORMED BY: BIANCA Sequeira[address] [facility] [id number] Triglyceride mass conc 66 mg/dL Normal 0-149 Co mprehensive Internal Medicine Work Phone: Comment on above: PATIENT WAS FASTINGP ERFORMED BY: BIANCA Vicky Axxgqf[address] [facility] [id number] METABOLIC PANEL, COMPREHENSI VE ([id number])Ordered By: Inspector Crystal on 07-06-2014 Albumin mass conc 4.5 g/dL Normal 3.5-5.5 Compreh ensive Internal Medicine Work Phone: Comment on above: PATIENT WAS FASTINGP ERFORMED BY: BIANCA Vickypaolo Vqqdwu2719 [facility] [id number] Albumin/Globulin mass ratio 2.1 {ratio} Normal 1.1-2.5 [facility] Work Phone: Comment on above: PATIENT WAS FASTINGP ERFORMED BY: BIANCA Rocío Sequeira6370 [facility] [id number] ALP [Catalytic activity/Vol] 57 U/L Normal 39-117 [facility]; [facility] Work Phone: Comment on above: PATIENT WAS FASTINGP ERFORMED BY: BIANCA Vicky Dprqkt9271 [facility] [id number] ALP enzyme act/vol 57 [iU]/L Normal 39-117 [facility]pre [facility] Internal [facility] Work Phone: Comment on above: PATIENT WAS FASTINGP ERFORMED BY: BIANCA LabElton Ezleow4925 [facility] [id number] ALT [Catalytic activity/Vol] 24 U/L Normal 0-44 [facility]; [facility] Work Phone: Comment on above: PATIENT WAS FASTINGP ERFORMED BY: BIANCA LabElton Mzkocv3917 [facility] [id number] ALT enzyme act/vol 24 [iU]/L Normal 0-44 [facility] Internal Medicine Work Phone: Comment on above: PATIENT WAS FASTINGP ERFORMED BY: CB [facility] Mcntfi9939 [address]ero RoadDublin [place] [id number] AST [Catalytic activity/Vol] 18 U/L Normal 0-40 [facility]; [facility] Work Phone: Comment on above: PATIENT WAS FASTINGP ERFORMED BY: CB [facility] Oatpei[address]Dublin [place] [id number] AST enzyme act/vol 18 [iU]/L Normal 0-40 [facility] Internal Medicine Work Phone: Comment on above: PATIENT WAS FASTINGP ERFORMED BY: BIANCA [facility] Funkko4[address]Dublin [place] [id number] Bilirubin mass conc 0.3 mg/dL Normal 0.0-1.2 Compr ensive Internal Medicine Work Phone: Comment on above: PATIENT WAS FASTINGP ERFORMED BY: BIANCA [facility] Yvcbmv2192 [address] RoadDublin [place] [id number] Calcium mass conc 9.9 mg/dL Normal 8.7-10.2 Compreh ensive Internal Medicine Work Phone: Comment on above: PATIENT WAS FASTINGP ERFORMED BY: BIANCA [facility] Qvmbcn6579 [address] RoadDublin [place] [id number] Chloride molar conc 99 mmol/L Normal 97-108 Compr ensive Internal Medicine Work Phone: Comment on above: PATIENT WAS FASTINGP ERFORMED BY: CB [facility] Yzdqbf4564 [address] RoadDublin [place] [id number] CO2 molar conc 26 mmol/L Normal 18-29 Comprehens linh Internal Medicine Work Phone: Comment on above: PATIENT WAS FASTINGP ERFORMED BY: CB [facility] Hwulxs86[address] RoadDublin [place] [id number] Creatinine mass conc 0.97 mg/dL Normal 0.76-1.[address] [facility] Work Phone: Comment on above: PATIENT WAS FASTINGP ERFORMED BY: BIANCA [facility] Qyjpfx9[address] RoadDublin [place] [id number] GFR/1.73 sq M predicted among blacks CKD-EPI vol rate/area (S/P/Bld) 103 mL/min/1.73 Normal Comprehe nsive Internal Medicine Work Phone: Comment on above: PATIENT WAS FASTINGP ERFORMED BY: CB [facility] Fgioih5[address]Dublin [place] [id number] GFR/1.73 sq M predicted among non-blacks CKD-EPI vol rate/area (S/P/Bld) 89 mL/min/1.73 Normal [facility] Work Phone: Comment on above: PATIENT WAS FASTINGP ERFORMED BY: BIANCA [facility] Iyiypv0412 [address] RoadNovant Healthin [place] [id number] Globulin (S) [Mass/Vol] 2.1 g/dL Normal 1.5-4.5 C omprehensive Internal Medicine Work Phone: Comment on above: PATIENT WAS FASTINGP ERFORMED BY: BIANCA [facility] Vqspyl0743 [address] RoadNovant Healthin [place] [id number] Globulin Calculated mass conc (S) 2.1 g/dL Normal 1.5-4.5 [facility] Work Phone: Glucose mass conc 100 mg/dL Abnormal 65-99 Compreh ensive Internal Medicine Work Phone: Comment on above: PATIENT WAS FASTINGP ERFORMED BY: CB [facility] Lzqvkx4214 [address] Roadblin [place] [id number] Potassium molar conc 5.0 mmol/L Normal 3.5-5.2 Comp rehensive Internal Medicine Work Phone: Comment on above: PATIENT WAS FASTINGP ERFORMED BY: CB [facility] Xoxsgt2220 [address] Roadblin [place] [id number] Protein mass conc 6.6 g/dL Normal 6.0-8.5 Compreh ensive Internal Medicine Work Phone: Comment on above: PATIENT WAS FASTINGP ERFORMED BY: CB [facility] Fthwhi0481 [address] RoadDublin [place] [id number] Sodium molar conc 140 mmol/L Normal 134-144 [facility] Internal [facility] Work Phone: Comment on above: PATIENT WAS FASTINGP ERFORMED BY: [facility] Iwrqtk0227 [facility] [id number] Urea nitrogen mass conc 12 mg/dL Normal 6-[address] anne hospitalensive Internal Medicine Work Phone: Comment on above: PATIENT WAS FASTINGP ERFORMED BY: [facility]6370 [facility] [id number] Urea nitrogen/Creatinine mass ratio 12 mg/mg Normal 9-20 [facility] Work Phone: Comment on above: PATIENT WAS FASTINGP ERFORMED BY: [facility] FoundationH[facility]6370 [facility] [id number] PSA (PROSTATE SPECIFIC ANTIG EN) (V76.44)Ordered By: Inspector Crystal on 07-06-2014 Prostate specific Ag mass conc 0.7 ng/mL Normal 0.0-4.0 [facility] Work Phone: Comment on above: [employer] ECLIA methodol ogy. .According to the [place] [employer], Serum PSA shoulddecrease and remain at undetectable levels after radicalprostatectomy. The AUA defines biochemical recurrence as an initialPSA value 0.2 ng/mL or greater followed by a subsequent confirmatoryPSA value 0.2 ng/mL or greater.Values obtained with different assay methods or kits cannot be usedinterchangeably. Results cannot be interpreted as absolute evidenceof the presence or absence of malignant disease. PATIENT WAS FASTINGP ERFORMED BY: [facility] FoundationH[facility]6370 [facility] [id number] RHEUMATOID FACTOR-QUANT (514 31)Ordered By: Inspector Crystal on 07-06-2014 Rheumatoid factor Qn 9.5 {IU/mL} Normal 0.0-13.9 [facility] Internal Medicine Work Phone: Comment on above: PATIENT WAS FASTINGP ERFORMED BY: [facility] FoundationH[facility]6370 [facility] [id number] Rheumatoid factor Qn 9.5 [IU]/mL Normal 0.0-13.9 [facility] prehensive Internal Medicine; [facility] Work Phone: Comment on above: PATIENT WAS FASTINGP ERFORMED BY: BIANCA LabKedzohpaolo MorganXfzwvi2590 [address] RoadDublin [place] [id number] SED RATE ERYTHROCYTE ([id number]) Ordered By: Inspector Crystal on 07-06-2014 ESR Velocity (Bld) 2 mm/h Normal 0-30 [facility] Internal Medicine Work Phone: Comment on above: PATIENT WAS FASTINGP ERFORMED BY: BIANCA LabPfefferm[employer] Cxeobo[address]blin [place] [id number] TSH ([id number])Ordered By: Goran m Collection Systems Technician on 07-06-2014 Thyrotropin Qn 1.120 {uIU/mL} Normal 0.450-4.50 0 [facility] Work Phone: Comment on above: PATIENT WAS FASTINGP ERFORMED BY: BIANCA ioSafe[address] [facility]in [place] [id number] VITAMIN B-12 (CYANOCOBALAMIN ) (03094)Ordered By: Inspector Crystal on 07-06-2014 Cobalamin (Vitamin B12) mass conc 522 pg/mL Normal 211-946 [facility] Work Phone: Comment on above: PATIENT WAS FASTINGP ERFORMED BY: BIANCA CodeSquarepaolo MorganIcmkfi0689 [address] RoadDublin [place] [id number] CBC WITH MANUAL DIFF ([id number]) Ordered By: Inspector Crystal on 06-24-2013 Basophils (Bld) [#/Vol] 0.1 {x10E3/uL} Normal 0.0-0.2 [facility] Work Phone: Comment on above: PATIENT WAS FASTINGP ERFORMED BY: BIANCA LabKedzoh Qtokax[address] [facility] Centerblin [place] [id number] Information: [id number] Basophils (Bld) [#/Vol] 0.1 10*3/uL Normal 0.0-0.2 [facility]; [facility] Work Phone: Comment on above: PATIENT WAS FASTINGP ERFORMED BY: [facility] [id number] Information: [id number] Basophils Auto #/vol (Bld) 0.1 {x10E3/uL} Normal 0.0-0.2 [facility] Work Phone: Basophils/100 WBC (Bld) 1 % Normal 0-3 C omprehensive Internal Medicine Work Phone: Comment on above: PATIENT WAS FASTINGP ERFORMED BY: [place] 7358370 [facility] [id number] Information: [id number] Basophils/100 WBC Auto (Bld) 1 % Normal 0-3 [facility] Work Phone: Eosinophils (Bld) [#/Vol] 0.2 {x10E3/uL} Normal 0.0-0.4 [facility] Work Phone: Comment on above: Please note refere nce interval change PATIENT WAS FASTINGP ERFORMED BY: [place] 7358370 [facility] [id number] Information: [id number] Eosinophils (Bld) [#/Vol] 0.2 10*3/uL Normal 0.0-0.4 [facility]; [facility] Work Phone: Comment on above: Please note refere nce interval change PATIENT WAS FASTINGP ERFORMED BY: [place] 7358370 [facility] [id number] Information: [id number] Eosinophils Auto #/vol (Bld) 0.2 {x10E3/uL} Normal 0.0-0.4 [facility] Work Phone: Comment on above: Please note refere nce interval change Eosinophils/100 WBC (Bld) 4 % Normal 0-5 [facility] Work Phone: Comment on above: Please note refere nce interval change PATIENT WAS FASTINGP ERFORMED BY: [place] 7358370 [facility] [id number] Information: [id number] Eosinophils/100 WBC Auto (Bld) 4 % Normal 0-5 [facility] Work Phone: Comment on above: Please note refere nce interval change Erythrocyte distribution width (RBC) [Ratio] 13.2 % Normal 12.3-15.4 [facility] Work Phone: Comment on above: PATIENT WAS FASTINGP ERFORMED BY: [address] [id number] Information: [id number] Erythrocyte distribution width Auto Ratio (RBC) 13.2 % Normal 12.3-15.4 [facility] Work Phone: Hematocrit (Bld) [Volume fraction] 44.2 % Normal 37.5-51.0 [facility] Work Phone: Comment on above: PATIENT WAS FASTINGP ERFORMED BY: [place] 7358370 [facility] [id number] Information: [id number] Hematocrit Auto Volume Fraction (Bld) 44.2 % Normal 37.5-51.0 [facility] Work Phone: Hemoglobin mass conc (Bld) 15.2 g/dL Normal 12.6-17.7 [facility] Work Phone: Comment on above: PATIENT WAS FASTINGP ERFORMED BY: [place] 7358370 [facility] [id number] Information: [id number] Immature granulocytes #/vol (Bld) 0.0 {x10E3/uL} Normal 0.0-0.1 [facility] Work Phone: Comment on above: PATIENT WAS FASTINGP ERFORMED BY: [place] 7358370 [facility] [id number] Information: [id number] Immature granulocytes (Bld) [#/Vol] 0.0 10*3/uL Normal 0.0-0.1 [facility]; [facility] Work Phone: Comment on above: PATIENT WAS FASTINGP ERFORMED BY: BIANCA Teran [facility] [id number] Information: [id number] Immature granulocytes/100 WBC (Bld) 0 % Normal 0-2 [facility] Work Phone: Comment on above: PATIENT WAS FASTINGP ERFORMED BY: BIANCA [facility] Lisrox[address] [id number] Information: [id number] Lymphocytes (Bld) [#/Vol] 1.2 {x10E3/uL} Normal 0.7-3.1 [facility] Work Phone: Comment on above: Please note refere nce interval change PATIENT WAS FASTINGP ERFORMED BY: [place] 7358370 [facility] [id number] Information: [id number] Lymphocytes (Bld) [#/Vol] 1.2 10*3/uL Normal 0.7-3.1 [facility]; [facility] Work Phone: Comment on above: Please note refere nce interval change PATIENT WAS FASTINGP ERFORMED BY: BIANCA [facility] Gwtqdg9840 [facility] [id number] Information: [id number] Lymphocytes Auto #/vol (Bld) 1.2 {x10E3/uL} Normal 0.7-3.1 [facility] Work Phone: Comment on above: Please note refere nce interval change Lymphocytes/100 WBC (Bld) 20 % Normal 14-46 [facility] Work Phone: Comment on above: Please note refere nce interval change PATIENT WAS FASTINGP ERFORMED BY: [place] 7358370 [facility] [id number] Information: [id number] Lymphocytes/100 WBC Auto (Bld) 20 % Normal 14-46 [facility] Work Phone: Comment on above: Please note refere nce interval change MCH (RBC) [Entitic mass] 29.5 pg Normal 26.6-33.0 [facility] Work Phone: Comment on above: PATIENT WAS FASTINGP ERFORMED BY: [address] [id number] Information: [id number] MCH Auto Entitic mass (RBC) 29.5 pg Normal 26.6-33.0 [facility] Work Phone: MCHC (RBC) [Mass/Vol] 34.4 g/dL Normal 31.5-35.7 [facility] Internal Medicine Work Phone: Comment on above: PATIENT WAS FASTINGP ERFORMED BY: [address] [id number] Information: [id number] MCHC Auto mass conc (RBC) 34.4 g/dL Normal 31.5-35.7 [facility] Work Phone: MCV (RBC) [Entitic vol] 86 fL Normal 79-97 C [facility] Internal Medicine Work Phone: Comment on above: PATIENT WAS FASTINGP ERFORMED BY: [address] [id number] Information: [id number] MCV Auto Entitic volume (RBC) 86 fL Normal 79-97 [facility] Work Phone: Monocytes (Bld) [#/Vol] 0.4 {x10E3/uL} Normal 0.1-0.9 [facility] Work Phone: Comment on above: Please note refere nce interval change PATIENT WAS FASTINGP ERFORMED BY: [address] [id number] Information: [id number] Monocytes (Bld) [#/Vol] 0.4 10*3/uL Normal 0.1-0.9 [facility]; [facility] Work Phone: Comment on above: Please note refere nce interval change PATIENT WAS FASTINGP ERFORMED BY: BIANCA Sequeira6370 [facility] [id number] Information: [id number] Monocytes Auto #/vol (Bld) 0.4 {x10E3/uL} Normal 0.1-0.9 [facility] Work Phone: Comment on above: Please note refere nce interval change Monocytes/100 WBC (Bld) 6 % Normal 4-12 [facility] Internal Medicine Work Phone: Comment on above: Please note refere nce interval change PATIENT WAS FASTINGP ERFORMED BY: [address] [id number] Information: [id number] Monocytes/100 WBC Auto (Bld) 6 % Normal 4-12 [facility] Work Phone: Comment on above: Please note refere nce interval change Neutrophils (Bld) [#/Vol] 4.2 {x10E3/uL} Normal 1.4-7.0 [facility] Work Phone: Comment on above: Please note refere nce interval change PATIENT WAS FASTINGP ERFORMED BY: [facility]6370 [facility] [id number] Information: [id number] Neutrophils (Bld) [#/Vol] 4.2 10*3/uL Normal 1.4-7.0 [facility]; [facility] Work Phone: Comment on above: Please note refere nce interval change PATIENT WAS FASTINGP ERFORMED BY: [facility]6[address] [facility] [id number] Information: [id number] Neutrophils Auto #/vol (Bld) 4.2 {x10E3/uL} Normal 1.4-7.0 [facility] Work Phone: Comment on above: Please note refere nce interval change Neutrophils/100 WBC (Bld) 69 % Normal 40-74 [facility] Work Phone: Comment on above: Please note refere nce interval change PATIENT WAS FASTINGP ERFORMED BY: BIANCA [facility] Kidhre8919 [facility] [id number] Information: [id number] Neutrophils/100 WBC Auto (Bld) 69 % Normal 40-74 [facility] Work Phone: Comment on above: Please note refere nce interval change Platelets (Bld) [#/Vol] 263 {x10E3/uL} Normal 155-379 [facility] Work Phone: Comment on above: Please note refere nce interval change PATIENT WAS FASTINGP ERFORMED BY: BIANCA [facility] Ffheqc4582 [facility] [id number] Information: [id number] Platelets (Bld) [#/Vol] 263 10*3/uL Normal 155-379 [facility]; [facility] Work Phone: Comment on above: Please note refere nce interval change PATIENT WAS FASTINGP ERFORMED BY: BIANCA [facility] Ajruoi2811 [facility] [id number] Information: [id number] Platelets Auto #/vol (Bld) 263 {x10E3/uL} Normal 155-379 [facility] Work Phone: Comment on above: Please note refere nce interval change RBC (Bld) [#/Vol] 5.16 {x10E6/uL} Normal 4.14-5.80 [facility] Internal Medicine Work Phone: Comment on above: PATIENT WAS FASTINGP ERFORMED BY: BIANCA [facility] Dwbdsh1876 [facility] [id number] Information: [id number] RBC (Bld) [#/Vol] 5.16 10*6/uL Normal 4.14-5.80 [facility] Internal Medicine; [facility] Work Phone: Comment on above: PATIENT WAS FASTINGP ERFORMED BY: [facility] [id number] Information: [id number] RBC Auto #/vol (Bld) 5.16 {x10E6/uL} Normal 4.14-5.80 [facility] Work Phone: WBC (Bld) [#/Vol] 6.0 {x10E3/uL} Normal 3.4-10.8 [facility] Internal Medicine Work Phone: Comment on above: Please note refere nce interval change PATIENT WAS FASTINGP ERFORMED BY: [place] 7358370 [facility] [id number] Information: [id number] WBC (Bld) [#/Vol] 6.0 10*3/uL Normal 3.4-10.8 [facility] Internal Medicine; [facility] Work Phone: Comment on above: Please note refere nce interval change PATIENT WAS FASTINGP ERFORMED BY: [place] 7358370 [facility] [id number] Information: [id number] WBC Auto #/vol (Bld) 6.0 {x10E3/uL} Normal 3.4-10.8 [facility] Work Phone: Comment on above: Please note refere nce interval change LIPID PANEL ([id number])Ordered B y: Inspector Crystal on 06-24-2013 Cholesterol in HDL mass conc 67 mg/dL Normal [facility] Internal [facility] Work Phone: Comment on above: According to ATP-III Guidelines, HDL-C >59 mg/dL is considered anegative risk factor for CHD. PATIENT WAS FASTINGP ERFORMED BY: [address] [id number] Cholesterol in LDL mass conc 128 mg/dL Abnormal 0-99 [facility] Work Phone: Comment on above: PATIENT WAS FASTINGP ERFORMED BY: BIANCA LabCopaolo Bshzkc8[address]Dublin [place] [id number] Cholesterol in LDL/Cholesterol in HDL mass ratio 1.9 {ratio_units} Normal 0.0-3.6 [facility] Work Phone: Comment on above: PATIENT WAS FASTINGP ERFORMED BY: BIANCA LabCopaolo Xquonf6899 [address] RoadDublin [place] [id number] Cholesterol in VLDL mass conc 25 mg/dL Normal 5-40 [facility] Work Phone: Comment on above: PATIENT WAS FASTINGP ERFORMED BY: BIANCA LabLee MorganWeoklq7500 Valero RoadNovant Healthin [place] [id number] Cholesterol mass conc 220 mg/dL Abnormal 100-199 [facility] prehensive Internal Medicine Work Phone: Comment on above: PATIENT WAS FASTINGP ERFORMED BY: BIANCA LabLee MorganQopxrd[address] [facility]in [place] [id number] Triglyceride mass conc 124 mg/dL Normal 0-149 [facility] centerensive Internal Medicine Work Phone: Comment on above: PATIENT WAS FASTINGP ERFORMED BY: BIANCA LabLee MorganUpixhc[address] [facility]in [place] [id number] METABOLIC PANEL, COMPREHENSI VE ([id number])Ordered By: Inspector Crystal on 06-24-2013 Albumin mass conc 4.5 g/dL Normal 3.5-5.5 Compreh ensive Internal Medicine Work Phone: Comment on above: PATIENT WAS FASTINGP ERFORMED BY: BIANCA [facility] Ivxpjr5442 [address] RoadDublin [place] [id number] Albumin/Globulin mass ratio 1.7 {ratio} Normal 1.1-2.5 [facility] Work Phone: Comment on above: PATIENT WAS FASTINGP ERFORMED BY: BIANCA [facility] Nstftg7409 [address] RoadDublin [place] [id number] ALP [Catalytic activity/Vol] 61 U/L Normal 44-102 [facility]; [facility] Work Phone: Comment on above: PATIENT WAS FASTINGP ERFORMED BY: BIANCA [facility] Xdysld1344 [address] RoadDublin [place] [id number] ALP enzyme act/vol 61 [iU]/L Normal 44-102 [facility] Internal Medicine Work Phone: Comment on above: PATIENT WAS FASTINGP ERFORMED BY: CB [facility] Pbglxn1742 [address] RoadDublin [place] [id number] ALT [Catalytic activity/Vol] 27 U/L Normal 0-44 [facility]; [facility] Work Phone: Comment on above: PATIENT WAS FASTINGP ERFORMED BY: [facility] Kxprib4797 [address] RoadDublin [place] [id number] ALT enzyme act/vol 27 [iU]/L Normal 0-44 [facility] Internal Medicine Work Phone: Comment on above: PATIENT WAS FASTINGP ERFORMED BY: [facility] Azfqfa0691 [address] RoadDublin [place] [id number] AST [Catalytic activity/Vol] 22 U/L Normal 0-40 [facility]; [facility] Work Phone: Comment on above: PATIENT WAS FASTINGP ERFORMED BY: [facility] Iaqgmk2661 [address] RoadDublin [place] [id number] AST enzyme act/vol 22 [iU]/L Normal 0-40 [facility] Internal Medicine Work Phone: Comment on above: PATIENT WAS FASTINGP ERFORMED BY: [facility] Jlnkrf8486 [address] RoadDublin [place] [id number] Bilirubin mass conc 0.5 mg/dL Normal 0.0-1.2 [facility] Internal Medicine Work Phone: Comment on above: PATIENT WAS FASTINGP ERFORMED BY: [facility] Gpbwzj2563 [address] RoadDublin [place] [id number] Calcium mass conc 9.4 mg/dL Normal 8.7-10.2 [facility] Internal Medicine Work Phone: Comment on above: PATIENT WAS FASTINGP ERFORMED BY: CB [facility] Dyiyaj0[address] RoadDublin [place] [id number] Chloride molar conc 100 mmol/L Normal 97-108 Compr ehensive Internal Medicine Work Phone: Comment on above: PATIENT WAS FASTINGP ERFORMED BY: CB [facility] Iafnpj2856 [address] RoadDublin [place] [id number] CO2 molar conc 24 mmol/L Normal 19-28 Comprehens linh Internal Medicine Work Phone: Comment on above: PATIENT WAS FASTINGP ERFORMED BY: CB [facility] Cywbih2833 [address] RoadDublin [place] [id number] Creatinine mass conc 0.93 mg/dL Normal 0.76-1.[address] [facility] Internal [facility] Work Phone: Comment on above: PATIENT WAS FASTINGP ERFORMED BY: CB [facility] Nvjzke4314 [address] RoadDublin [place] [id number] GFR/1.73 sq M predicted among blacks CKD-EPI vol rate/area (S/P/Bld) 109 mL/min/1.73 Normal Com[facility]he [facility] Internal Medicine Work Phone: Comment on above: PATIENT WAS FASTINGP ERFORMED BY: CB [facility] Nranga20[address]Dublin [place] [id number] GFR/1.73 sq M predicted among non-blacks CKD-EPI vol rate/area (S/P/Bld) 94 mL/min/1.73 Normal [facility] Work Phone: Comment on above: PATIENT WAS FASTINGP ERFORMED BY: CB [facility] Ujaxbg7427 [address] RoadDublin [place] [id number] Globulin (S) [Mass/Vol] 2.6 g/dL Normal 1.5-4.5 C omprehensive Internal Medicine Work Phone: Comment on above: PATIENT WAS FASTINGP ERFORMED BY: CB [facility] Tcfwwv6391 [address]Dublin [place] [id number] Globulin Calculated mass conc (S) 2.6 g/dL Normal 1.5-4.5 [facility] Work Phone: Glucose mass conc 88 mg/dL Normal 65-99 Compreh ensive Internal Medicine Work Phone: Comment on above: PATIENT WAS FASTINGP ERFORMED BY: [facility]6370 [facility] [id number] Potassium molar conc 4.4 mmol/L Normal 3.5-5.2 Comp rehensive Internal Medicine Work Phone: Comment on above: PATIENT WAS FASTINGP ERFORMED BY: [facility]6370 [facility] [id number] Protein mass conc 7.1 g/dL Normal 6.0-8.5 Compreh ensive Internal Medicine Work Phone: Comment on above: PATIENT WAS FASTINGP ERFORMED BY: [facility]6370 [facility] [id number] Sodium molar conc 139 mmol/L Normal 134-144 Compreh ensive Internal Medicine Work Phone: Comment on above: PATIENT WAS FASTINGP ERFORMED BY: [facility]6370 [facility] [id number] Urea nitrogen mass conc 11 mg/dL Normal 6-24 C omprehensive Internal Medicine Work Phone: Comment on above: PATIENT WAS FASTINGP ERFORMED BY: [facility] [id number] Urea nitrogen/Creatinine mass ratio 12 mg/mg Normal 9-20 [facility] Work Phone: Comment on above: PATIENT WAS FASTINGP ERFORMED BY: [facility]6[address] [facility] [id number] Microscopic ExaminationOrder ed By: Inspector Crystal on 06-24-2013 Bacteria LM.HPF #/area (Urine sed) Few Normal [facility] Work Phone: Epithelial cells LM.HPF #/area (Urine sed) None seen Normal 0 - 10 [facility] Work Phone: Mucus LM Ql (Urine sed) Present Normal C omprehensive Internal Medicine Work Phone: RBC LM.HPF #/area (Urine sed) 0-3 Normal 0 - 3 [facility] Work Phone: WBC LM.HPF #/area (Urine sed) 0-5 Normal 0 - 5 [facility] Work Phone: PSA (PROSTATE SPECIFIC ANTIG EN) (V76.44)Ordered By: Inspector Crystal on 06-24-2013 Prostate specific Ag mass conc 0.6 ng/mL Normal 0.0-4.0 [facility] Work Phone: Comment on above: [employer] ECLIA methodol ogy. .According to the [place] [employer], Serum PSA shoulddecrease and remain at undetectable levels after radicalprostatectomy. The AUA defines biochemical recurrence as an initialPSA value 0.2 ng/mL or greater followed by a subsequent confirmatoryPSA value 0.2 ng/mL or greater.Values obtained with different assay methods or kits cannot be usedinterchangeably. Results cannot be interpreted as absolute evidenceof the presence or absence of malignant disease. PATIENT WAS FASTINGP ERFORMED BY: [employer]70 PureBrandsOur Lady of Belle[facility] [id number] URINALYSIS, W/ MICRO ([id number]) Ordered By: Inspector Crystal on 06-24-2013 Appearance Nom (U) Clear Normal Compre hensive Internal Medicine Work Phone: Comment on above: PATIENT WAS FASTINGP ERFORMED BY: [employer]70 [facility]ALifeCare [facility] [id number] Bilirubin Ql (U) Negative Normal Comprehe nsive Internal Medicine Work Phone: Comment on above: PATIENT WAS FASTINGP ERFORMED BY: [employer] Jnebno[address] [facility] [place] [id number] Bilirubin Ql (U) Negative Normal Comprehe nsive Internal Medicine; [facility] Work Phone: Comment on above: PATIENT WAS FASTINGP ERFORMED BY: [employer]70 PureBrandsOur Lady of Bellef[facility] [id number] Color Nom (U) Yellow Normal Comprehensi ve Internal Medicine Work Phone: Comment on above: PATIENT WAS FASTINGP ERFORMED BY: GAIN FitnessDublin [place] [id number] Glucose Ql (U) Negative Normal Comprehens linh Internal Medicine Work Phone: Comment on above: PATIENT WAS FASTINGP ERFORMED BY: BIANCA Sequeira[address] RoadDublin [place] [id number] Glucose Ql (U) Negative Normal Comprehens linh Internal Medicine; [facility] Work Phone: Comment on above: PATIENT WAS FASTINGP ERFORMED BY: BIANCA Sequeira[address] RoadDublin [place] [id number] Hemoglobin Ql (U) Negative Normal Compreh ensive Internal Medicine Work Phone: Comment on above: PATIENT WAS FASTINGP ERFORMED BY: BIANCA Sequeira[address] RoadDublin [place] [id number] Hemoglobin Ql (U) Negative Normal Compreh ensive Internal Medicine; [facility] Work Phone: Comment on above: PATIENT WAS FASTINGP ERFORMED BY: BIANCA Sequeira[address]Dublin [place] [id number] Hemoglobin Test strip Ql (U) Negative Normal [facility] Work Phone: Ketones Ql (U) Negative Normal Comprehens linh [facility] Medicine Work Phone: Comment on above: PATIENT WAS FASTINGP ERFORMED BY: BIANCA Sequeira[address] RoadDublin [place] [id number] Ketones Ql (U) Negative Normal Comprehens linh Internal Medicine; [facility] Work Phone: Comment on above: PATIENT WAS FASTINGP ERFORMED BY: BIANCA Morganlin[address]Dublin [place] [id number] Leukocyte esterase Test strip Ql (U) Negative Normal [facility] Work Phone: Comment on above: PATIENT WAS FASTINGP ERFORMED BY: BIANCA Morganlin[address]Dublin [place] [id number] Leukocyte esterase Test strip Ql (U) Negative Normal [facility]; [facility] Work Phone: Comment on above: PATIENT WAS FASTINGP ERFORMED BY: BIANCA Sequeira[address]Dublin [place] [id number] Microscopic observation LM Nom (Urine sed) See below: Normal [facility] Work Phone: Comment on above: PATIENT WAS FASTINGP ERFORMED BY: BIANCA Morganlin[address]ublin [place] [id number] Microscopic observation LM Nom (Urine sed) MICRON Normal [facility] Work Phone: Comment on above: Microscopic follows if indicated. PATIENT WAS FASTINGP ERFORMED BY: BIANCA Sequeira[address]Dublin [place] [id number] Nitrite Ql (U) Negative Normal Comprehens linh [facility] Medicine Work Phone: Comment on above: PATIENT WAS FASTINGP ERFORMED BY: BIANCA Sequeira[address]ublin [place] [id number] Nitrite Ql (U) Negative Normal Comprehens linh [facility] Medicine; [facility] Work Phone: Comment on above: PATIENT WAS FASTINGP ERFORMED BY: BIANCA Sequeira[address]ublin [place] [id number] Nitrite Test strip Ql (U) Negative Normal [facility] Work Phone: pH (U) 7.0 [pH] Normal 5.0-7.5 [facility] Work Phone: Comment on above: PATIENT WAS FASTINGP ERFORMED BY: BIANCA Morganlin[address]ublin [place] [id number] pH Test strip (U) 7.0 [pH] Normal 5.0-7.5 Compreh ensive Internal Medicine Work Phone: Protein Ql (U) Negative Normal Comprehens linh [facility] Medicine Work Phone: Comment on above: PATIENT WAS FASTINGP ERFORMED BY: BIANCA Morganlin[address]Dublin [place] [id number] Protein Ql (U) Negative Normal Comprehens linh [facility] Medicine; [facility] Work Phone: Comment on above: PATIENT WAS FASTINGP ERFORMED BY: BIANCA Morganlin6370 [facility]ALifeCare [facility] [id number] Protein Test strip Ql (U) Negative Normal [facility] Work Phone: Specific gravity Relative Density (U) 1.022 1 Normal 1.005-1.03 0 [facility] Work Phone: Comment on above: PATIENT WAS FASTINGP ERFORMED BY: [employer] Haiya Technology DevelopmentCaroMont Regional [facility] [id number] Urobilinogen (U) [Mass/Vol] 0.2 mg/dL Normal 0.0-1.9 [facility]; [facility] Work Phone: Comment on above: PATIENT WAS FASTINGP ERFORMED BY: [employer]6370 [facility]ALifeCare [facility] [place] [id number] Urobilinogen Test strip mass conc (U) 0.2 mg/dL Normal 0.0-1.9 [facility] Work Phone: Comment on above: PATIENT WAS FASTINGP ERFORMED BY: [employer] Platform9 SystemsCaroMont Regional Medical Center [facility] [id number] MYOCARD PERF STRESS/REST MUL TOrdered By: Inspector Crystal on 02-28-2011 MYOCARD PERF STRESS/REST MULT See Note Normal [facility] Work Phone: Comment on above: MYOCARDIAL PERFUSION SCAN TECHNIQUEThe patient was injected with 10 mCi of Tc99m Cardiolite and subsequentlyrest SPECT Cardiolite nuclear imaging was obtained in the horizontal long, vertical long, and short axes views. The patient exercised on a Bruceprotocol for 15 minutes achieving a peak heart rate of 164 beats perminute (96% predicted maximumheart rate) with a peak blood pressure of 140/80 mmHg and a peak METcapacity of approximately 17 METs. The patient was injected with 35.0mCi of Tc99m Cardiolite and subsequently stress SPECT Cardiolite nuclearimaging was obtained in the horizontal long, vertical long, and shortaxes views. Gated Cardiolite study at peak stress was obtained. INTERPRETATIONRest SPECT Cardiolite nuclear imaging demonstrates extracardiac/gastrointestinal tracer uptake near the inferior and inferolateral areas.This is not appreciated following stress. Rest and stress SPECTCardiolite nuclear imaging both demonstrate areas of subtle diminishedtracer uptake in portions of the basal inferior septal/basal inferiorsegments. At rest there is also notation of an element of diminishedtracer uptake in portions of the basal to mid inferior segments whichappear to improve and/or normalize following stress. There appear to besimilar type findings on the resting and stress Polar Map images. Thereis notation of end systolic thickening and brightening and on the gatedCardiolite study demonstrated myocardial thickening and inward wallmotion. The reported LVEF is 58%. The aforementioned changes appearcompatible with the effects of soft tissue attenuation/artifact and/orthe effects of gastrointestinal tracer uptake. There are nomyocardial perfusion changes considered diagnostic for previousmyocardial injury/infarct or stress-induced myocardial ischemia. IMPRESSION1) Rest and stress SPECT Cardiolite nuclear imaging demonstratemyocardial perfusion changes compatible with the effects of soft tissueattenuation/artifact and/or the effects of gastrointestinal tracer uptakebut no myocardial perfusion changes considered diagnostic for previousmyocardial injury/infarction or stress-induced myocardial ischemia.2) A gated Cardiolite study reports an LVEF of 58%. Dictated on 02/28/11 0947 by Blu Casiano MDTranscribed on 02/28/11 1046 by VIPINPATSign by Blu Casiano MD on 02/28/11 1302 Sign by: Blu Casiano MD C-REACTIVE PROTEIN ([id number])Or dered By: Inspector Crystal on 02-17-2011 CRP mass conc 1.4 mg/L Normal 0.0-4.9 Comprehensi ve Internal Medicine Work Phone: Comment on above: PATIENT WAS FASTINGP ERFORMED BY: BIANCA [employer]6370 [employer] [place] [id number] CBC WITH MANUAL DIFF ([id number]) Ordered By: Inspector Crystal on 02-17-2011 Basophils (Bld) [#/Vol] 0.1 {x10E3/uL} Normal 0.0-0.2 [facility] Work Phone: Comment on above: PATIENT WAS FASTINGP ERFORMED BY: [employer]70 [facility] [id number] Information: [id number] Basophils (Bld) [#/Vol] 0.1 10*3/uL Normal 0.0-0.2 [facility]; [facility] Work Phone: Comment on above: PATIENT WAS FASTINGP ERFORMED BY: [place] [address]358[address] [facility] [id number] Information: [id number] Basophils Auto #/vol (Bld) 0.1 {x10E3/uL} Normal 0.0-0.2 [facility] Work Phone: Basophils/100 WBC (Bld) 1 % Normal 0-3 C omprehensive Internal Medicine Work Phone: Comment on above: PATIENT WAS FASTINGP ERFORMED BY: [place] [address]358370 [facility] [id number] Information: [id number] Basophils/100 WBC Auto (Bld) 1 % Normal 0-3 [facility] Work Phone: Eosinophils (Bld) [#/Vol] 0.2 {x10E3/uL} Normal 0.0-0.4 [facility] Work Phone: Comment on above: PATIENT WAS FASTINGP ERFORMED BY: [place] [address]358370 [facility] [id number] Information: [id number] Eosinophils (Bld) [#/Vol] 0.2 10*3/uL Normal 0.0-0.4 [facility]; [facility] Work Phone: Comment on above: PATIENT WAS FASTINGP ERFORMED BY: [place] [address]358370 [facility] [id number] Information: [id number] Eosinophils Auto #/vol (Bld) 0.2 {x10E3/uL} Normal 0.0-0.4 [facility] Work Phone: Eosinophils/100 WBC (Bld) 4 % Normal 0-7 [facility] Work Phone: Comment on above: PATIENT WAS FASTINGP ERFORMED BY: [facility]6370 [facility] [id number] Information: [id number] Eosinophils/100 WBC Auto (Bld) 4 % Normal 0-7 [facility] Work Phone: Erythrocyte distribution width (RBC) [Ratio] 13.3 % Normal 11.7-15.0 [facility] Work Phone: Comment on above: PATIENT WAS FASTINGP ERFORMED BY: [place] [address]358370 [facility] [id number] Information: [id number] Erythrocyte distribution width Auto Ratio (RBC) 13.3 % Normal 11.7-15.0 [facility] Work Phone: Hematocrit (Bld) [Volume fraction] 43.2 % Normal 36.0-50.0 [facility] Work Phone: Comment on above: PATIENT WAS FASTINGP ERFORMED BY: [place] [address]358370 [facility] [id number] Information: [id number] Hematocrit Auto Volume Fraction (Bld) 43.2 % Normal 36.0-50.0 [facility] Work Phone: Hemoglobin mass conc (Bld) 14.4 g/dL Normal 12.5-17.0 [facility] Work Phone: Comment on above: PATIENT WAS FASTINGP ERFORMED BY: [place] [address]358370 [facility] [id number] Information: [id number] Immature granulocytes #/vol (Bld) 0.0 {x10E3/uL} Normal 0.0-0.1 [facility] Work Phone: Comment on above: PATIENT WAS FASTINGP ERFORMED BY: [place] [address]358370 [facility] [id number] Information: [id number] Immature granulocytes (Bld) [#/Vol] 0.0 10*3/uL Normal 0.0-0.1 [facility]; [facility] Work Phone: Comment on above: PATIENT WAS FASTINGP ERFORMED BY: BIANCA [facility] Bjllsq4531 [facility] [id number] Information: [id number] Immature granulocytes/100 WBC (Bld) 0 % Normal 0-1 [facility] Work Phone: Comment on above: PATIENT WAS FASTINGP ERFORMED BY: [address] [id number] Information: [id number] Lymphocytes (Bld) [#/Vol] 1.2 {x10E3/uL} Normal 0.7-4.5 [facility] Work Phone: Comment on above: PATIENT WAS FASTINGP ERFORMED BY: [address] [id number] Information: [id number] Lymphocytes (Bld) [#/Vol] 1.2 10*3/uL Normal 0.7-4.5 [facility]; [facility] Work Phone: Comment on above: PATIENT WAS FASTINGP ERFORMED BY: [place] [address]370 [facility] [id number] Information: [id number] Lymphocytes Auto #/vol (Bld) 1.2 {x10E3/uL} Normal 0.7-4.5 [facility] Work Phone: Lymphocytes/100 WBC (Bld) 24 % Normal 14-46 [facility] Work Phone: Comment on above: PATIENT WAS FASTINGP ERFORMED BY: [place] [address]358370 [facility] [id number] Information: [id number] Lymphocytes/100 WBC Auto (Bld) 24 % Normal 14-46 [facility] Work Phone: MCH (RBC) [Entitic mass] 28.5 pg Normal 27.0-34.0 [facility] Work Phone: Comment on above: PATIENT WAS FASTINGP ERFORMED BY: BIANCA [facility] Hospitalpaolo Pwxhce0343 [facility] [id number] Information: [id number] MCH Auto Entitic mass (RBC) 28.5 pg Normal 27.0-34.0 [facility] Work Phone: MCHC (RBC) [Mass/Vol] 33.3 g/dL Normal 32.0-36.0 [facility] Internal Medicine Work Phone: Comment on above: PATIENT WAS FASTINGP ERFORMED BY: BIANCA [place] [id number] [facility] [id number] Information: [id number] MCHC Auto mass conc (RBC) 33.3 g/dL Normal 32.0-36.0 [facility] Work Phone: MCV (RBC) [Entitic vol] 86 fL Normal 80-98 [facility] Internal Medicine Work Phone: Comment on above: PATIENT WAS FASTINGP ERFORMED BY: BIANCA [place] [id number] [facility] [id number] Information: [id number] MCV Auto Entitic volume (RBC) 86 fL Normal 80-98 [facility] Work Phone: Monocytes (Bld) [#/Vol] 0.4 {x10E3/uL} Normal 0.1-1.0 [facility] Work Phone: Comment on above: PATIENT WAS FASTINGP ERFORMED BY: BIANCA [place] [id number] [facility] [id number] Information: [id number] Monocytes (Bld) [#/Vol] 0.4 10*3/uL Normal 0.1-1.0 [facility]; [facility] Work Phone: Comment on above: PATIENT WAS FASTINGP ERFORMED BY: BIANCA [place] [address]69670 [facility] [id number] Information: [id number] Monocytes Auto #/vol (Bld) 0.4 {x10E3/uL} Normal 0.1-1.0 [facility] Work Phone: Monocytes/100 WBC (Bld) 7 % Normal 4-13 C omprehensive Internal Medicine Work Phone: Comment on above: PATIENT WAS FASTINGP ERFORMED BY: BIANCA [facility] Rsyfym9307 [facility] [id number] Information: [id number] Monocytes/100 WBC Auto (Bld) 7 % Normal 4-13 [facility] Work Phone: Neutrophils (Bld) [#/Vol] 3.3 {x10E3/uL} Normal 1.8-7.8 [facility] Work Phone: Comment on above: PATIENT WAS FASTINGP ERFORMED BY: BIANCA [facility] Qmfcmn7125 [facility] [id number] Information: [id number] Neutrophils (Bld) [#/Vol] 3.3 10*3/uL Normal 1.8-7.8 [facility]; [facility] Work Phone: Comment on above: PATIENT WAS FASTINGP ERFORMED BY: BIANCA [facility]6370 [facility] [id number] Information: [id number] Neutrophils Auto #/vol (Bld) 3.3 {x10E3/uL} Normal 1.8-7.8 [facility] Work Phone: Neutrophils/100 WBC (Bld) 64 % Normal 40-74 [facility] Work Phone: Comment on above: PATIENT WAS FASTINGP ERFORMED BY: BIANCA [place] [id number] [facility] [id number] Information: [id number] Neutrophils/100 WBC Auto (Bld) 64 % Normal 40-74 [facility] Work Phone: Platelets (Bld) [#/Vol] 244 {x10E3/uL} Normal 140-415 [facility] Work Phone: Comment on above: PATIENT WAS FASTINGP ERFORMED BY: BIANCA Vickypaolo Lxxvxw0147 [facility] [id number] Information: [id number] Platelets (Bld) [#/Vol] 244 10*3/uL Normal 140-415 [facility]; [facility] Work Phone: Comment on above: PATIENT WAS FASTINGP ERFORMED BY: BIANCA MaximinoLee MorganSunnze0914 [facility] [id number] Information: [id number] Platelets Auto #/vol (Bld) 244 {x10E3/uL} Normal 140-415 [facility] Work Phone: RBC (Bld) [#/Vol] 5.05 {x10E6/uL} Normal 4.10-5.60 [facility] Internal Medicine Work Phone: Comment on above: PATIENT WAS FASTINGP ERFORMED BY: BIANCA [facility] Zvndgv6354 [facility] [id number] Information: [id number] RBC (Bld) [#/Vol] 5.05 10*6/uL Normal 4.10-5.60 [facility] Internal Medicine; [facility] Work Phone: Comment on above: PATIENT WAS FASTINGP ERFORMED BY: BIANCA [facility] Mokpkp0592 [facility] [id number] Information: [id number] RBC Auto #/vol (Bld) 5.05 {x10E6/uL} Normal 4.10-5.60 [facility] Work Phone: WBC (Bld) [#/Vol] 5.2 {x10E3/uL} Normal 4.0-10.5 [facility] Internal Medicine Work Phone: Comment on above: PATIENT WAS FASTINGP ERFORMED BY: BIANCA [facility]6370 [facility] [id number] Information: [id number] WBC (Bld) [#/Vol] 5.2 10*3/uL Normal 4.0-10.5 Compre hensive Internal Medicine; [facility] Work Phone: Comment on above: PATIENT WAS FASTINGP ERFORMED BY: BIANCA [facility] Rlbpju9403 [address] [place] [id number] Information: [id number] WBC Auto #/vol (Bld) 5.2 {x10E3/uL} Normal 4.0-10.5 [facility] Work Phone: CHEST, PA AND LATERALOrdered By: Inspector Crystal on 02-17-2011 CHEST, PA AND LATERAL See Note Normal Com prehensive Internal Medicine Work Phone: Comment on above: CLINICAL:Male, 50 ye ars old. Physical. Patient has known scar tissue in lungs.Doctor heard rattles in chest and wanted it evaluated. X-RAY EXAMINATION - CHEST TECHNIQUE:PA and lateral views of the chest. COMPARISON:None. FINDINGS:The diaphragm is low and relatively flattened. These findings are mostcompatible with chronic obstructive pulmonary disease. There is diffuse mild interstitial disease. This is most likely chronic. There is increased density in the lung apices most likely representingchronic apical pleural thickening. The heart is normal in size and morphology. Normal mediastinum and ha. Normal visualized pulmonary arteries. There is mild prominence of theaortic arch. This likely represents early atherosclerotic disease .There are diffuse degenerative changes of the visualized thoracic spine. IMPRESSION:There are findings compatible with chronic obstructive pulmonary diseaseand mild chronic interstitial disease. No focal infiltrate is identified. Dictated on 02/17/11 1115 by BETTIE GOODWIN MDTranscribed on 02/20/11 1125 by ITS IMPORTSign by BETTIE GOODWIN MD on 02/20/11 1126 Sign by: BETTIE GOODWIN MD LIPID PANEL ([id number])Ordered B y: Inspector Crystal on 02-17-2011 Cholesterol in HDL mass conc 56 mg/dL Normal [facility] Work Phone: Comment on above: According to ATP-III Guidelines, HDL-C >59 mg/dL is considered anegative risk factor for CHD. PATIENT WAS FASTINGP ERFORMED BY: BIANCA Morganlin[address] RoadDuin [place] [id number] Cholesterol in LDL mass conc 123 mg/dL Abnormal 0-99 [facility] Work Phone: Comment on above: PATIENT WAS FASTINGP ERFORMED BY: BIANCA oMrganlin[address] RoadNovant Healthin [place] [id number] Cholesterol in LDL/Cholesterol in HDL mass ratio 2.2 {ratio_units} Normal 0.0-3.6 [facility] Work Phone: Comment on above: PATIENT WAS FASTINGP ERFORMED BY: BIANCA Sequeira[address] RoadNovant Healthin [place] [id number] Cholesterol in VLDL mass conc 16 mg/dL Normal 5-40 [facility] Work Phone: Comment on above: PATIENT WAS FASTINGP ERFORMED BY: BIANCA Sequeira[address] [facility] [id number] Cholesterol mass conc 195 mg/dL Normal 100-199 Com prehensive Internal Medicine Work Phone: Comment on above: PATIENT WAS FASTINGP ERFORMED BY: BIANCA Sequeira[address] [facility]in [place] [id number] Triglyceride mass conc 80 mg/dL Normal 0-149 [facility] centerensive [facility] Work Phone: Comment on above: PATIENT WAS FASTINGP ERFORMED BY: BIANCA Sequeira6370 [facility] [id number] METABOLIC PANEL, COMPREHENSI VE ([id number])Ordered By: Inspector Crystal on 02-17-2011 Albumin mass conc 4.2 g/dL Normal 3.5-5.5 Compreh ensive Internal Medicine Work Phone: Comment on above: PATIENT WAS FASTINGP ERFORMED BY: BIANCA Morganlin[address] [facility]in [place] [id number] Albumin/Globulin mass ratio 1.8 {ratio} Normal 1.1-2.5 [facility] Work Phone: Comment on above: PATIENT WAS FASTINGP ERFORMED BY: BIANCA Sequeira[address] RoadDublin [place] [id number] ALP [Catalytic activity/Vol] 59 U/L Normal 25-150 [facility]; [facility] Work Phone: Comment on above: PATIENT WAS FASTINGP ERFORMED BY: CB [facility] Yhvasz5[address] RoadDublin [place] [id number] ALP enzyme act/vol 59 [iU]/L Normal 25-150 [facility] Internal Medicine Work Phone: Comment on above: PATIENT WAS FASTINGP ERFORMED BY: CB [facility] Warmgz95[address] RoadDublin [place] [id number] ALT [Catalytic activity/Vol] 23 U/L Normal 0-55 [facility]; [facility] Work Phone: Comment on above: PATIENT WAS FASTINGP ERFORMED BY: [facility] Joiinj3668 [address] Road[address]ublin [place] [id number] ALT enzyme act/vol 23 [iU]/L Normal 0-55 [facility] Internal Medicine Work Phone: Comment on above: PATIENT WAS FASTINGP ERFORMED BY: [facility] [id number] [address] RoadDublin [place] [id number] AST [Catalytic activity/Vol] 20 U/L Normal 0-40 [facility]; [facility] Work Phone: Comment on above: PATIENT WAS FASTINGP ERFORMED BY: CB [facility] Emojan7377 [address] RoadDublin [place] [id number] AST enzyme act/vol 20 [iU]/L Normal 0-40 [facility] Internal Medicine Work Phone: Comment on above: PATIENT WAS FASTINGP ERFORMED BY: CB [facility] [id number] [address] RoadDublin [place] [id number] Bilirubin mass conc 0.5 mg/dL Normal 0.0-1.2 [facility] Internal Medicine Work Phone: Comment on above: PATIENT WAS FASTINGP ERFORMED BY: CB [facility] Ijrqut2645 [address] RoadDublin [place] [id number] Calcium mass conc 9.3 mg/dL Normal 8.7-10.2 Compreh ensive Internal Medicine Work Phone: Comment on above: PATIENT WAS FASTINGP ERFORMED BY: BIANCA [facility] MorganAtbftm1005 [address] Platform9 SystemsCaroMont [facility] [id number] Chloride molar conc 101 mmol/L Normal 97-108 Compr ehensive Internal Medicine Work Phone: Comment on above: PATIENT WAS FASTINGP ERFORMED BY: BIANCA [facility] Ogfecq7654 [address] Platform9 SystemsCaroMont Regional [facility] [id number] CO2 molar conc 25 mmol/L Normal 20-32 Comprehens linh Internal Medicine Work Phone: Comment on above: PATIENT WAS FASTINGP ERFORMED BY: BIANCA [facility] [id number] [address] Platform9 SystemsCaroMont Regional [facility] [id number] Creatinine mass conc 1.11 mg/dL Normal 0.76-1.27 Comp rehensive Internal Medicine Work Phone: Comment on above: PATIENT WAS FASTINGP ERFORMED BY: BIANCA [facility] [id number] [facility] [id number] GFR/1.73 sq M predicted among blacks MDRD vol rate/area (S/P/Bld) 89 mL/min/{1.73_m2} Normal Comprehe nsive Internal Medicine Work Phone: Comment on above: Note: A persistent e GFR <60 mL/min/1.73 m2 (3 months or more) mayindicate chronic kidney disease. An eGFR >59 mL/min/1.73 m2 with anelevated urine protein also may indicate chronic kidney disease.Calculated using CKD-EPI formula. PATIENT WAS FASTINGP ERFORMED BY: BIANCA [facility] [id number] [address] Platform9 SystemsCaroMont Regional [facility] [id number] GFR/1.73 sq M predicted among non-blacks CKD-EPI vol rate/area (S/P/Bld) 77 mL/min/1.73 Normal [facility] Work Phone: Comment on above: PATIENT WAS FASTINGP ERFORMED BY: BIANCA [facility] [id number] [address] [facility] [id number] Globulin (S) [Mass/Vol] 2.4 g/dL Normal 1.5-4.5 C omprehensive Internal Medicine Work Phone: Comment on above: PATIENT WAS FASTINGP ERFORMED BY: BIANCA [facility] MorganIpkdoz7014 [address] Roadblin [place] [id number] Globulin Calculated mass conc (S) 2.4 g/dL Normal 1.5-4.5 [facility] Work Phone: Glucose mass conc 93 mg/dL Normal 65-99 Compreh ensive Internal Medicine Work Phone: Comment on above: PATIENT WAS FASTINGP ERFORMED BY: BIANCA [facility] Texbys0699 [address] [facility] [place] [id number] Potassium molar conc 4.2 mmol/L Normal 3.5-5.2 Comp rehensive Internal Medicine Work Phone: Comment on above: PATIENT WAS FASTINGP ERFORMED BY: BIANCA LabLee MorganElyftk8588 [address] [facility]in [place] [id number] Protein mass conc 6.6 g/dL Normal 6.0-8.5 Compreh ensive Internal Medicine Work Phone: Comment on above: PATIENT WAS FASTINGP ERFORMED BY: BIANCA [facility] MorganEzyqgd4651 [address] [facility]in [place] [id number] Sodium molar conc 137 mmol/L Normal 135-145 Compreh ensive Internal Medicine Work Phone: Comment on above: PATIENT WAS FASTINGP ERFORMED BY: BIANCA [facility] Maltdr5124 [address] [facility] [id number] Urea nitrogen mass conc 14 mg/dL Normal 6-24 C omprehensive Internal Medicine Work Phone: Comment on above: PATIENT WAS FASTINGP ERFORMED BY: BIANCA [facility] Ttovbq7894 [address] [facility] Centerblin [place] [id number] Urea nitrogen/Creatinine mass ratio 13 mg/mg Normal 9-20 [facility] Work Phone: Comment on above: PATIENT WAS FASTINGP ERFORMED BY: BIANCA [facility] Cgcwtq5072 [address] [facility]in [place] [id number] Microscopic ExaminationOrder ed By: Inspector Crystal on 02-17-2011 Bacteria LM.HPF #/area (Urine sed) None seen Normal [facility] Work Phone: Epithelial cells LM.HPF #/area (Urine sed) 0-10 Normal 0 - 10 [facility] Work Phone: Mucus LM Ql (Urine sed) Present Normal C omprehensive Internal Medicine Work Phone: RBC LM.HPF #/area (Urine sed) 0-3 Normal 0 - 3 [facility] Work Phone: WBC LM.HPF #/area (Urine sed) 0-5 Normal 0 - 5 [facility] Work Phone: PSA (PROSTATE SPECIFIC ANTIG EN) (V76.44)Ordered By: Inspector Crystal on 02-17-2011 Prostate specific Ag mass conc 0.5 ng/mL Normal 0.0-4.0 [facility] Work Phone: Comment on above: [employer] ECLIA methodol ogy. .According to the [place] [employer], Serum PSA shoulddecrease and remain at undetectable levels after radicalprostatectomy. The AUA defines biochemical recurrence as an initialPSA value 0.2 ng/mL or greater followed by a subsequent confirmatoryPSA value 0.2 ng/mL or greater.Values obtained with different assay methods or kits cannot be usedinterchangeably. Results cannot be interpreted as absolute evidenceof the presence or absence of malignant disease. PATIENT WAS FASTINGP ERFORMED BY: [employer] [place] [id number] SED RATE ERYTHROCYTE ([id number]) Ordered By: Inspector Crystal on 02-17-2011 ESR Velocity (Bld) 2 mm/h Normal 0-20 [facility] Internal Medicine Work Phone: Comment on above: PATIENT WAS FASTINGP ERFORMED BY: [employer] [place] [id number] URINALYSIS, W/ MICRO ([id number]) Ordered By: Inspector Crystal on 02-17-2011 Appearance Nom (U) Clear Normal [facility] Internal Medicine Work Phone: Comment on above: PATIENT WAS FASTINGP ERFORMED BY: Practice Ignitionblin [place] [id number] Bilirubin Ql (U) Negative Normal Comprehe nsive Internal Medicine Work Phone: Comment on above: PATIENT WAS FASTINGP ERFORMED BY: BIANCA Sequeira6370 [address] [facility] [id number] Bilirubin Ql (U) Negative Normal Comprehe nsive Internal Medicine; [facility] Work Phone: Comment on above: PATIENT WAS FASTINGP ERFORMED BY: BIANCA Peterson70 [address] [facility] [id number] Color Nom (U) Yellow Normal Comprehensi ve Internal Medicine Work Phone: Comment on above: PATIENT WAS FASTINGP ERFORMED BY: BIANCA Peterson70 [facility] [id number] Glucose Ql (U) Negative Normal Comprehens linh Internal Medicine Work Phone: Comment on above: PATIENT WAS FASTINGP ERFORMED BY: BIANCA Peterson70 [address] [facility] [id number] Glucose Ql (U) Negative Normal Comprehens linh Internal Medicine; [facility] Work Phone: Comment on above: PATIENT WAS FASTINGP ERFORMED BY: BIANCA Peterson70 [facility] [id number] Hemoglobin Ql (U) Negative Normal Compreh ensive Internal Medicine Work Phone: Comment on above: PATIENT WAS FASTINGP ERFORMED BY: BIANCA Peterson70 [address] [facility] [id number] Hemoglobin Ql (U) Negative Normal Compreh ensive Internal Medicine; [facility] Work Phone: Comment on above: PATIENT WAS FASTINGP ERFORMED BY: BIANCA Sequeira6370 [address] [facility] [id number] Hemoglobin Test strip Ql (U) Negative Normal [facility] Work Phone: Ketones Ql (U) Negative Normal Comprehens linh Internal Medicine Work Phone: Comment on above: PATIENT WAS FASTINGP ERFORMED BY: BIANCA Sequeira6370 [address] RoadDublin [place] [id number] Ketones Ql (U) Negative Normal Comprehens linh Internal Medicine; [facility] Work Phone: Comment on above: PATIENT WAS FASTINGP ERFORMED BY: BIANCA Vicky Ctzpiu1280 [address] RoadDublin [place] [id number] Leukocyte esterase Test strip Ql (U) Negative Normal [facility] Work Phone: Comment on above: PATIENT WAS FASTINGP ERFORMED BY: BIANCA [facility]6[address] [place] [id number] Leukocyte esterase Test strip Ql (U) Negative Normal [facility]; [facility] Work Phone: Comment on above: PATIENT WAS FASTINGP ERFORMED BY: BIANCA [facility] Cyclft7800 [address] RoadDublin [place] [id number] Microscopic observation LM Nom (Urine sed) MICRON Normal [facility] Work Phone: Comment on above: Microscopic follows if indicated. PATIENT WAS FASTINGP ERFORMED BY: BIANCA [facility]6370 [address] RoadNovant Healthin [place] [id number] Microscopic observation LM Nom (Urine sed) See below: Normal [facility] Work Phone: Comment on above: PATIENT WAS FASTINGP ERFORMED BY: BIANCA [facility] Haokfl8629 [address] RoadDublin [place] [id number] Nitrite Ql (U) Negative Normal Comprehens linh Internal Medicine Work Phone: Comment on above: PATIENT WAS FASTINGP ERFORMED BY: [facility]6370 [address]Dublin [place] [id number] Nitrite Ql (U) Negative Normal Comprehens linh Internal Medicine; [facility] Work Phone: Comment on above: PATIENT WAS FASTINGP ERFORMED BY: BIANCA [facility]6[address]Dublin [place] [id number] Nitrite Test strip Ql (U) Negative Normal [facility] Work Phone: pH (U) 7.0 [pH] Normal 5.0-7.5 [facility] Work Phone: Comment on above: PATIENT WAS FASTINGP ERFORMED BY: CB [facility] Nunwsr4112 [address] RoadDublin [place] [id number] pH Test strip (U) 7.0 [pH] Normal 5.0-7.5 Compreh ensive Internal Medicine Work Phone: Protein Ql (U) Negative Normal Comprehens linh Internal Medicine Work Phone: Comment on above: PATIENT WAS FASTINGP ERFORMED BY: CB [facility] Qyhddf8481 [address] RoadDublin [place] [id number] Protein Ql (U) Negative Normal Comprehens linh Internal Medicine; [facility] Work Phone: Comment on above: PATIENT WAS FASTINGP ERFORMED BY: CB [facility] Qrllgn6252 [address] RoadDublin [place] [id number] Protein Test strip Ql (U) Negative Normal [facility] Work Phone: Specific gravity Relative Density (U) 1.026 1 Normal 1.005-1.03 0 [facility] Work Phone: Comment on above: PATIENT WAS FASTINGP ERFORMED BY: CB [facility] Klubxa4787 [address]ero RoadDublin [place] [id number] Urobilinogen (U) [Mass/Vol] 0.2 mg/dL Normal 0.0-1.9 [facility]; [facility] Work Phone: Comment on above: PATIENT WAS FASTINGP ERFORMED BY: CB [facility] Jiahip7544 [address] RoadDublin [place] [id number] Urobilinogen Test strip mass conc (U) 0.2 mg/dL Normal 0.0-1.9 [facility] Work Phone: Comment on above: PATIENT WAS FASTINGP ERFORMED BY: CB [facility] Dqtrvg3212 [address] RoadDublin [place] [id number] Vital Signs Date Time Vital Sign Value Performing Clinician Facility 12-29-2024 08:41-0400 Body temperature 97.1 [degF] Dr. Heather Howe DO Work Phone: [facility] 12-29-2024 08:41-0400 Diastolic blood pressure 89 mm[Hg] Dr. Heather Howe DO Work Phone: [facility] 12-29-2024 08:41-0400 Heart rate 73 /min Dr. Heather Howe DO Work Phone: [facility] 12-29-2024 08:41-0400 Respiratory rate 16 /min Dr. Heather Howe DO Work Phone: [facility] 12-29-2024 08:41-0400 SaO2% (BldA) [Mass fraction] 98 % Dr. Heather Howe DO Work Phone: [facility] 12-29-2024 08:41-0400 Systolic blood pressure 124 mm[Hg] Dr. Heather Howe DO Work Phone: [facility] 12-29-2024 07:02-0400 Body height 180.[address] Heather Howe DO Work Phone: [facility] 12-29-2024 07:02-0400 Body mass index (BMI) [Ratio] 27.5 kg/m2 Dr. Heather Howe DO Work Phone: [facility] 12-29-2024 07:02-0400 Body weight 89.[address] Heather Howe DO Work Phone: [facility] 09-23-2024 09:01-0500 Body height 177.8 cm Mariah Esteban GOLDSMITH APPRENTICE Work Phone: [facility] 09-23-2024 09:01-0500 Body mass index (BMI) [Ratio] 27.62 kg/m2 Mariah Wejeffersont GOLDSMITH APPRENTICE Work Phone: [facility] 09-23-2024 09:01-0500 Body weight 87.32 kg Mariah Larkint GOLDSMITH APPRENTICE Work Phone: [facility] 09-23-2024 09:01-0500 Diastolic blood pressure 78 mm[Hg] Mariah Esteban GOLDSMITH APPRENTICE Work Phone: [facility] 09-23-2024 09:01-0500 Heart rate 70 /min Mariah Esteban GOLDSMITH APPRENTICE Work Phone: [facility] 09-23-2024 09:01-0500 SaO2% (BldA) [Mass fraction] 98 % Mariah Esteban GOLDSMITH APPRENTICE Work Phone: [facility] 09-23-2024 09:01-0500 Systolic blood pressure 120 mm[Hg] Mariah Esteban GOLDSMITH APPRENTICE Work Phone: [facility] 01-29-2023 09:43-0400 Body height 175.9 cm [facility]; [facility] Work Phone: 01-29-2023 09:43-0400 Body mass index (BMI) [Ratio] 28.04 kg/m2 [facility]; [facility] Work Phone: 01-29-2023 09:43-0400 Body surface area Derived from formula 2.03 m2 [facility]; [facility] Work Phone: 01-29-2023 09:43-0400 Body temperature 97.6 [degF] [facility] Comprehensiv e Internal Medicine; [facility] Work Phone: 01-29-2023 09:43-0400 Body weight 86.75 kg [facility]; [facility] Work Phone: 01-29-2023 09:43-0400 Diastolic blood pressure 70 mm[Hg] [facility]; [facility] Work Phone: Comment on above: Patient Position: Sitting; Cuff Location : Left Arm; Cuff Size: Standard 01-29-2023 09:43-0400 Heart rate 63 /min [facility]; [facility] Work Phone: Comment on above: Pattern: Regular 01-29-2023 09:43-0400 Respiratory rate 16 /min Jayant Mason [facility] Comprehensiv e Internal Medicine; [facility] Work Phone: Comment on above: Pattern: Unlabored 01-29-2023 09:43-0400 SaO2% (BldA) [Mass fraction] 99 % Jayant Mason [facility]; [facility] Work Phone: Comment on above: Room air 01-29-2023 09:43-0400 Systolic blood pressure 120 mm[Hg] Jayant Mason [facility]; [facility] Work Phone: Comment on above: Patient Position: Sitting; Cuff Location : Left Arm; Cuff Size: Standard 01-23-2022 11:51-0400 Body height 175.9 cm Licha Nur [facility]; [facility] Work Phone: 01-23-2022 11:51-0400 Body mass index (BMI) [Ratio] 28.66 kg/m2 Licha Nur [facility]; [facility] Work Phone: 01-23-2022 11:51-0400 Body surface area Derived from formula 2.05 m2 Licha Nur [facility]; [facility] Work Phone: 01-23-2022 11:51-0400 Body temperature 97.3 [degF] Licha Nur [facility] Comprehensiv e Internal Medicine; [facility] Work Phone: Comment on above: Method: Infrared 01-23-2022 11:51-0400 Body weight 88.68 kg Licha Nur [facility]; [facility] Work Phone: 01-23-2022 11:51-0400 Diastolic blood pressure 80 mm[Hg] Licha Nur [facility]; [facility] Work Phone: Comment on above: Patient Position: Sitting; Cuff Location : Left Arm; Cuff Size: Standard 01-23-2022 11:51-0400 Heart rate 64 /min Licha Nur [facility]; [facility] Work Phone: Comment on above: Pattern: Regular 01-23-2022 11:51-0400 Respiratory rate 16 /min Licha Nur [facility] Comprehensiv e Internal Medicine; [facility] Work Phone: Comment on above: Pattern: Unlabored 01-23-2022 11:51-0400 SaO2% (BldA) [Mass fraction] 99 % Licha Nur [facility]; [facility] Work Phone: Comment on above: Room air 01-23-2022 11:51-0400 Systolic blood pressure 118 mm[Hg] Licha Nur [facility]; [facility] Work Phone: Comment on above: Patient Position: Sitting; Cuff Location : Left Arm; Cuff Size: Standard 04-06-2021 08:00-0400 Body height 175.9 cm Heather Howe DO Work Phone: [facility]; [facility] Work Phone: 04-06-2021 08:00-0400 Body mass index (BMI) [Ratio] 27.64 kg/m2 Heather Locketton DO Work Phone: [facility]; [facility] Work Phone: 04-06-2021 08:00-0400 Body surface area Derived from formula 2.02 m2 Heather Locketton DO Work Phone: [facility]; [facility] Work Phone: 04-06-2021 08:00-0400 Body temperature 97.2 [degF] Heather Howe DO Work Phone: [facility]; [facility] Work Phone: Comment on above: Method: Infrared 04-06-2021 08:00-0400 Body weight 85.5 kg Heather Locketton DO Work Phone: [facility]; [facility] Work Phone: 04-06-2021 08:00-0400 Diastolic blood pressure 78 mm[Hg] Heather Locketton DO Work Phone: [facility]; [facility] Work Phone: Comment on above: Patient Position: Sitting; Cuff Location : Left Arm; Cuff Size: Standard 04-06-2021 08:00-0400 Heart rate 88 /min Heather Howe DO Work Phone: [facility]; [facility] Work Phone: Comment on above: Pattern: Regular 04-06-2021 08:00-0400 Respiratory rate 16 /min Heather Howe DO Work Phone: [facility]; [facility] Work Phone: Comment on above: Pattern: Unlabored 04-06-2021 08:00-0400 SaO2% (BldA) [Mass fraction] 99 % Heather Howe DO Work Phone: [facility]; [facility] Work Phone: Comment on above: Room air 04-06-2021 08:00-0400 Systolic blood pressure 138 mm[Hg] Heather Howe DO Work Phone: [facility]; [facility] Work Phone: Comment on above: Patient Position: Sitting; Cuff Location : Left Arm; Cuff Size: Standard 01-31-2021 09:29-0400 Body height 175.9 cm Licha Nur [facility]; [facility] Work Phone: 01-31-2021 09:29-0400 Body mass index (BMI) [Ratio] 28.08 kg/m2 Licha Nur [facility]; [facility] Work Phone: 01-31-2021 09:29-0400 Body surface area Derived from formula 2.03 m2 Licha Nur [facility]; [facility] Work Phone: 01-31-2021 09:29-0400 Body temperature 97.1 [degF] Licha Nur [facility] Comprehensiv e Internal Medicine; [facility] Work Phone: Comment on above: Method: Infrared 01-31-2021 09:29-0400 Body weight 86.86 kg Licha Nur [facility]; [facility] Work Phone: 01-31-2021 09:29-0400 Diastolic blood pressure 88 mm[Hg] Licha Nur [facility]; [facility] Work Phone: Comment on above: Patient Position: Sitting; Cuff Location : Left Arm; Cuff Size: Standard 01-31-2021 09:29-0400 Heart rate 72 /min Licha Nur [facility]; [facility] Work Phone: Comment on above: Pattern: Regular 01-31-2021 09:29-0400 Respiratory rate 16 /min Licha Nur [facility] Comprehensiv e Internal Medicine; [facility] Work Phone: Comment on above: Pattern: Unlabored 01-31-2021 09:29-0400 SaO2% (BldA) [Mass fraction] 96 % Licha Nur [facility]; [facility] Work Phone: Comment on above: Room air 01-31-2021 09:29-0400 Systolic blood pressure 122 mm[Hg] Licha Nur [facility]; [facility] Work Phone: Comment on above: Patient Position: Sitting; Cuff Location : Left Arm; Cuff Size: Standard 11-25-2020 06:56-0500 BMI (Body Mass Index) 28.08 kg/m2 [facility]; [facility] Work Phone: 11-25-2020 06:56-0500 Body weight 86.86 kg [facility]; [facility] Work Phone: 11-25-2020 06:56-0500 BSA (Body Surface Area) 2.03 m2 [facility]; [facility] Work Phone: 11-25-2020 06:56-0500 Height 175.9 cm [facility]; [facility] Work Phone: 11-22-2020 08:29-0500 BMI (Body Mass Index) 28.08 kg/m2 [facility]; [facility] Work Phone: 11-22-2020 08:29-0500 Body Temperature 97.1 [degF] [facility]; [facility] Work Phone: Comment on above: Method: Thermal Scan 11-22-2020 08:29-0500 Body weight 86.86 kg [facility]; [facility] Work Phone: 11-22-2020 08:29-0500 BP Diastolic 70 mm[Hg] [facility]; [facility] Work Phone: Comment on above: Patient Position: Sitting; Cuff Location : Left Arm; Cuff Size: Standard 11-22-2020 08:29-0500 BP Systolic 116 mm[Hg] [facility]; [facility] Work Phone: Comment on above: Patient Position: Sitting; Cuff Location : Left Arm; Cuff Size: Standard 11-22-2020 08:29-0500 BSA (Body Surface Area) 2.03 m2 [facility]; [facility] Work Phone: 11-22-2020 08:29-0500 Height 175.9 cm [facility]; [facility] Work Phone: 11-22-2020 08:29-0500 Pulse (Heart Rate) 62 /min [facility] Comprehensiv e Internal Medicine; [facility] Work Phone: Comment on above: Pattern: Regular 11-22-2020 08:29-0500 Pulse Oximetry 100 % Heather Howe [facility]; [facility] Work Phone: Comment on above: Room air 11-22-2020 08:29-0500 Respiratory Rate 16 /min [facility]; [facility] Work Phone: Comment on above: Pattern: Unlabored 11-22-2020 08:29-0500 SaO2% (BldA) [Mass fraction] 100 % [facility]; [facility] Work Phone: Comment on above: Room air 11-17-2020 08:04-0500 BMI (Body Mass Index) 28.08 kg/m2 Licha Nur [facility]; [facility] Work Phone: Comment on above: no vs taken as this is phone encounter d ue to covid 11-17-2020 08:04-0500 Body weight 86.86 kg Licha Nur [facility]; [facility] Work Phone: Comment on above: no vs taken as this is phone encounter d ue to covid 11-17-2020 08:04-0500 BSA (Body Surface Area) 2.03 m2 Licha Nur [facility] [facility]; [facility] Work Phone: Comment on above: no vs taken as this is phone encounter d ue to covid 11-17-2020 08:04-0500 Height 175.9 cm Licha Nur [facility]; [facility] Work Phone: Comment on above: no vs taken as this is phone encounter d ue to covid 08-24-2020 15:51-0500 BMI (Body Mass Index) 28.08 kg/m2 LizethMing Meraz RADIATION ONCOLOGY NURSE Work Phone: [facility] Work Phone: 08-24-2020 15:51-0500 Body Temperature 98.4 [degF] LizethMing Meraz RADIATION ONCOLOGY NURSE Work Phone: [facility] Work Phone: 08-24-2020 15:51-0500 Body weight 86.86 kg LizethMing Meraz RADIATION ONCOLOGY NURSE Work Phone: [facility] Work Phone: 08-24-2020 15:51-0500 BP Diastolic 79 mm[Hg] LizethMing Meraz RADIATION ONCOLOGY NURSE Work Phone: [facility] Work Phone: Comment on above: Patient Position: Supine; Cuff Location: Right Arm; Cuff Size: Standard 08-24-2020 15:51-0500 BP Systolic 122 mm[Hg] Josefina Meraz RADIATION ONCOLOGY NURSE Work Phone: [facility] Work Phone: Comment on above: Patient Position: Supine; Cuff Location: Right Arm; Cuff Size: Standard 08-24-2020 15:51-0500 BSA (Body Surface Area) 2.03 m2 Josefina Meraz RADIATION ONCOLOGY NURSE Work Phone: [facility] Work Phone: 08-24-2020 15:51-0500 Height 175.9 cm Josefina Meraz RADIATION ONCOLOGY NURSE Work Phone: [facility] Work Phone: 08-24-2020 15:51-0500 Pulse (Heart Rate) 75 /min Josefina Meraz RADIATION ONCOLOGY NURSE Work Phone: [facility] Work Phone: Comment on above: Pattern: Regular 08-24-2020 15:51-0500 Pulse Oximetry 96 % Heather Howe [facility] Work Phone: Comment on above: Room air 08-24-2020 15:51-0500 SaO2% (BldA) [Mass fraction] 96 % Josefina Meraz RADIATION ONCOLOGY NURSE Work Phone: [facility]; [facility] Work Phone: Comment on above: Room air 11-12-2019 10:05-0500 BMI (Body Mass Index) 28.08 kg/m2 Licha Nur [facility] Work Phone: 11-12-2019 10:05-0500 Body Temperature 97 [degF] Licha Nur [facility] Comprehensiv e Internal Medicine Work Phone: Comment on above: Method: Temporal 11-12-2019 10:05-0500 Body weight 86.86 kg Licha Nur [facility] Work Phone: 11-12-2019 10:05-0500 BP Diastolic 74 mm[Hg] Licha Nur [facility] Work Phone: Comment on above: Patient Position: Sitting; Cuff Location : Left Arm; Cuff Size: Standard 11-12-2019 10:05-0500 BP Systolic 120 mm[Hg] Licha Nur CMA [facility] Work Phone: Comment on above: Patient Position: Sitting; Cuff Location : Left Arm; Cuff Size: Standard 11-12-2019 10:05-0500 BSA (Body Surface Area) 2.03 m2 Licha Nur CMA [facility] Work Phone: 11-12-2019 10:05-0500 Height 175.9 cm Licha Nur CMA [facility] Work Phone: 11-12-2019 10:05-0500 Pulse (Heart Rate) 69 /min Licha Nur CMA Comprehens linh Internal Medicine Work Phone: Comment on above: Pattern: Regular 11-12-2019 10:05-0500 Pulse Oximetry 99 % [facility] Work Phone: Comment on above: Room air 11-12-2019 10:05-0500 Respiratory Rate 16 /min Licha Nur CMA Comprehensiv e Internal Medicine Work Phone: Comment on above: Pattern: Unlabored 11-12-2019 10:05-0500 SaO2% (BldA) [Mass fraction] 99 % Licha Nur RN INTERVENTIONAL [facility]; [facility] Work Phone: Comment on above: Room air 10-01-2018 11:52-0500 BMI (Body Mass Index) 28.22 kg/m2 Licha Nur CMA [facility] Work Phone: 10-01-2018 11:52-0500 Body Temperature 97.5 [degF] Licha Nur CMA Comprehens[facility] e [facility] Medicine Work Phone: Comment on above: Method: Temporal 10-01-2018 11:52-0500 Body weight 87.32 kg Licha Nur CMA [facility] Work Phone: 10-01-2018 11:52-0500 BP Diastolic 90 mm[Hg] Licha Nur CMA [facility] Work Phone: Comment on above: Patient Position: Sitting; Cuff Location : Left Arm; Cuff Size: Standard 10-01-2018 11:52-0500 BP Systolic 122 mm[Hg] Licha Nur CMA [facility] Work Phone: Comment on above: Patient Position: Sitting; Cuff Location : Left Arm; Cuff Size: Standard 10-01-2018 11:52-0500 BSA (Body Surface Area) 2.04 m2 Licha Nur CMA [facility] Work Phone: 10-01-2018 11:52-0500 Height 175.9 cm Licha Nur CMA [facility] Work Phone: 10-01-2018 11:52-0500 Pulse (Heart Rate) 74 /min Licha Nur CMA Comprehens linh Internal Medicine Work Phone: Comment on above: Pattern: Regular 10-01-2018 11:52-0500 Pulse Oximetry 97 % [facility] Howe [facility] Work Phone: Comment on above: Room air 10-01-2018 11:52-0500 Respiratory Rate 18 /min Licha Nur CMA Comprehensiv e Internal Medicine Work Phone: Comment on above: Pattern: Unlabored 10-01-2018 11:52-0500 SaO2% (BldA) [Mass fraction] 97 % Licha Nur [facility] Internal Medicine; [facility] Work Phone: Comment on above: Room air 10-01-2018 11:52-0500 Weight 87.32 kg Heather Howe [facility] Work Phone: 08-01-2017 08:02-0400 BMI (Body Mass Index) 28.22 kg/m2 Nadia Valerio [facility] Work Phone: 08-01-2017 08:02-0400 Body Temperature 98.1 [degF] Nadia Valerio [facility] Internal Medicine Work Phone: Comment on above: Method: Temporal 08-01-2017 08:02-0400 Body weight 87.32 kg Nadia Valerio [facility] Internal Medicine Work Phone: 08-01-2017 08:02-0400 BP Diastolic 74 mm[Hg] Nadia Valerio [facility] Internal Medicine Work Phone: Comment on above: Patient Position: Sitting; Cuff Location : Left Arm; Cuff Size: Standard 08-01-2017 08:02-0400 BP Systolic 124 mm[Hg] Nadia Valerio [facility] Internal Medicine Work Phone: Comment on above: Patient Position: Sitting; Cuff Location : Left Arm; Cuff Size: Standard 08-01-2017 08:02-0400 BSA (Body Surface Area) 2.04 m2 Nadia Valerio [facility] Internal Medicine Work Phone: 08-01-2017 08:02-0400 Height 175.9 cm Nadia Valerio [facility] Internal Medicine Work Phone: 08-01-2017 08:02-0400 Pulse (Heart Rate) 77 /min Nadia Valerio [facility] Internal Medicine Work Phone: Comment on above: Pattern: Regular 08-01-2017 08:02-0400 Pulse Oximetry 98 % Heather Howe [facility] Work Phone: Comment on above: Room air 08-01-2017 08:02-0400 Respiratory Rate 16 /min Nadia Valerio [facility] Internal Medicine Work Phone: Comment on above: Pattern: Unlabored 08-01-2017 08:02-0400 SaO2% (BldA) [Mass fraction] 98 % Nadia Valerio [facility] Internal Medicine; [facility] Work Phone: Comment on above: Room air 08-01-2017 08:02-0400 Weight 87.32 kg Heather Howe [facility] Work Phone: 03-27-2016 08:54-0400 BMI (Body Mass Index) 28.52 kg/m2 Josefa Reinoso RN [facility] Work Phone: 03-27-2016 08:54-0400 Body weight 88.23 kg Josefa Reinoso RN [facility] Work Phone: 03-27-2016 08:54-0400 BP Diastolic 80 mm[Hg] Josefa Reinoso RN [facility] Work Phone: Comment on above: Patient Position: Sitting; Cuff Location : Left Arm; Cuff Size: Large 03-27-2016 08:54-0400 BP Systolic 120 mm[Hg] Josefa Reinoso RN [facility] Work Phone: Comment on above: Patient Position: Sitting; Cuff Location : Left Arm; Cuff Size: Large 03-27-2016 08:54-0400 BSA (Body Surface Area) 2.05 m2 Josefa Reinoso RN [facility] Work Phone: 03-27-2016 08:54-0400 Height 175.9 cm Josefa Reinoso RN [facility] Work Phone: 03-27-2016 08:54-0400 Pulse (Heart Rate) 74 /min Josefa Reinoso RN Comprehens linh Internal Medicine Work Phone: Comment on above: Pattern: Regular 03-27-2016 08:54-0400 Pulse Oximetry 98 % Heather Howe [facility] Work Phone: Comment on above: Room air 03-27-2016 08:54-0400 Respiratory Rate 18 /min Josefa Reinoso RN Comprehensiv e [facility] Medicine Work Phone: Comment on above: Pattern: Unlabored 03-27-2016 08:54-0400 SaO2% (BldA) [Mass fraction] 98 % Josefa Reinoso RN [facility]; [facility] Work Phone: Comment on above: Room air 03-27-2016 08:54-0400 Weight 88.23 kg Heather Howe [facility] Work Phone: 02-07-2016 13:20-0400 BMI (Body Mass Index) 28.44 kg/m2 Iliana Slarb RETA [facility] Work Phone: 02-07-2016 13:20-0400 Body Temperature 98.2 [degF] Iliana Slarb [employer]ED [employer] SUPERVISOR [facility] Work Phone: 02-07-2016 13:20-0400 Body weight 88 kg Iliana Slarb [employer]AL SUPERVISOR [facility] Work Phone: 02-07-2016 13:20-0400 BP Diastolic 80 mm[Hg] Iliana Slarb [employer]ED METAL SUPERVISOR [facility] Work Phone: Comment on above: Patient Position: Sitting; Cuff Location : Left Arm; Cuff Size: Standard 02-07-2016 13:20-0400 BP Systolic 118 mm[Hg] Iliana Slarb [employer]ED METAL SUPERVISOR [facility] Work Phone: Comment on above: Patient Position: Sitting; Cuff Location : Left Arm; Cuff Size: Standard 02-07-2016 13:20-0400 BSA (Body Surface Area) 2.04 m2 Iliana Slarb [employer]ED METAL SUPERVISOR [facility] Work Phone: 02-07-2016 13:20-0400 Height 175.9 cm Iliana Slarb [employer]ED METAL SUPERVISOR [facility] Work Phone: 02-07-2016 13:20-0400 Pulse (Heart Rate) 67 /min Iliana Slarb [employer]AL SUPERVISOR Comprehensiv e Internal Medicine Work Phone: Comment on above: Pattern: Regular 02-07-2016 13:20-0400 Pulse Oximetry 99 % Heather Shyam [facility] Work Phone: Comment on above: Room air 02-07-2016 13:20-0400 Respiratory Rate 17 /min Iliana Slarb [employer] SUPERVISOR [facility] Work Phone: Comment on above: Pattern: Unlabored 02-07-2016 13:20-0400 SaO2% (BldA) [Mass fraction] 99 % Iliana Slarb [employer]ED METAL SUPERVISOR [facility]; [facility] Work Phone: Comment on above: Room air 02-07-2016 13:20-0400 Weight 88 kg Heather Locketton [facility] Work Phone: 11-17-2015 11:03-0500 BMI (Body Mass Index) 28 kg/m2 Laure Faith [facility] Work Phone: 11-17-2015 11:03-0500 Body Temperature 99 [degF] Laure Faith [facility] Work Phone: Comment on above: Method: Temporal 11-17-2015 11:03-0500 Body weight 86.64 kg Laure Faith [facility] Work Phone: 11-17-2015 11:03-0500 BP Diastolic 74 mm[Hg] Laure Forbesshellylucas [facility] Work Phone: Comment on above: Patient Position: Sitting; Cuff Location : Left Arm; Cuff Size: Standard 11-17-2015 11:03-0500 BP Systolic 116 mm[Hg] Laure Faith [facility] Work Phone: Comment on above: Patient Position: Sitting; Cuff Location : Left Arm; Cuff Size: Standard 11-17-2015 11:03-0500 BSA (Body Surface Area) 2.03 m2 Laure Forbesralph [facility] Work Phone: 11-17-2015 11:03-0500 Height 175.9 cm Laure Marcell [facility] Work Phone: 11-17-2015 11:03-0500 Pulse (Heart Rate) 72 /min Laure Faith [facility] Internal Medicine Work Phone: Comment on above: Pattern: Regular 11-17-2015 11:03-0500 Pulse Oximetry 98 % Heather Howe [facility] Work Phone: Comment on above: Room air 11-17-2015 11:03-0500 Respiratory Rate 16 /min Laure Forbesralph [facility] Work Phone: Comment on above: Pattern: Unlabored 11-17-2015 11:03-0500 SaO2% (BldA) [Mass fraction] 98 % Laure Marcell [facility]; [facility] Work Phone: Comment on above: Room air 11-17-2015 11:03-0500 Weight 86.64 kg Heather Howe [facility] Work Phone: 03-12-2015 08:25-0400 BMI (Body Mass Index) 27.71 kg/m2 Laure Forbesralph [facility] Work Phone: 03-12-2015 08:25-0400 Body Temperature 98.1 [degF] Laurenathan Faith [facility] Work Phone: Comment on above: Method: Oral 03-12-2015 08:25-0400 Body weight 85.73 kg Laure Faith [facility] Work Phone: 03-12-2015 08:25-0400 BP Diastolic 68 mm[Hg] Laure Faith [facility] Work Phone: Comment on above: Patient Position: Sitting; Cuff Location : Left Arm; Cuff Size: Standard 03-12-2015 08:25-0400 BP Systolic 100 mm[Hg] Laure Faith [facility] Work Phone: Comment on above: Patient Position: Sitting; Cuff Location : Left Arm; Cuff Size: Standard 03-12-2015 08:25-0400 BSA (Body Surface Area) 2.02 m2 Laure Faith [facility] Work Phone: 03-12-2015 08:25-0400 Height 175.9 cm Laure Faith [facility] Work Phone: 03-12-2015 08:25-0400 Pulse (Heart Rate) 74 /min Laure Faith [facility] Internal Medicine Work Phone: Comment on above: Pattern: Regular 03-12-2015 08:25-0400 Respiratory Rate 16 /min Laure Faith [facility] Work Phone: Comment on above: Pattern: Unlabored 03-12-2015 08:25-0400 Weight 85.73 kg Heather Howe [facility] Work Phone: 11-11-2014 14:13-0500 BMI (Body Mass Index) 27.12 kg/m2 Laure Faith [facility] Work Phone: 11-11-2014 14:13-0500 Body Temperature 99.7 [degF] Laure Faith [facility] Work Phone: 11-11-2014 14:13-0500 Body weight 83.92 kg Laure Faith [facility] Work Phone: 11-11-2014 14:13-0500 BP Diastolic 62 mm[Hg] Laure Faith [facility] Work Phone: Comment on above: Patient Position: Sitting; Cuff Location : Left Arm; Cuff Size: Standard 11-11-2014 14:13-0500 BP Systolic 122 mm[Hg] Laure Fatih [facility] Work Phone: Comment on above: Patient Position: Sitting; Cuff Location : Left Arm; Cuff Size: Standard 11-11-2014 14:13-0500 BSA (Body Surface Area) 2 m2 Laure Faith [facility] Work Phone: 11-11-2014 14:13-0500 Height 175.9 cm Laure Faith [facility] Work Phone: 11-11-2014 14:13-0500 Pulse (Heart Rate) 96 /min Laure Allenlucas [facility] Internal Medicine Work Phone: Comment on above: Pattern: Regular 11-11-2014 14:13-0500 Respiratory Rate 16 /min Laure Allenlucas [facility] Work Phone: Comment on above: Pattern: Unlabored 11-11-2014 14:13-0500 Weight 83.92 kg Heather Howe [facility] Work Phone: 08-24-2014 10:50-0500 BMI (Body Mass Index) 26.98 kg/m2 Laure Allenlucas [facility] Work Phone: 08-24-2014 10:50-0500 Body Temperature 98.5 [degF] Laure Allenlucas [facility] Work Phone: 08-24-2014 10:50-0500 Body weight 83.46 kg Laure Faith [facility] Work Phone: 08-24-2014 10:50-0500 BP Diastolic 70 mm[Hg] Laure Faith [facility] Work Phone: Comment on above: Patient Position: Sitting; Cuff Location : Left Arm; Cuff Size: Standard 08-24-2014 10:50-0500 BP Systolic 104 mm[Hg] Laure Faith [facility] Work Phone: Comment on above: Patient Position: Sitting; Cuff Location : Left Arm; Cuff Size: Standard 08-24-2014 10:50-0500 BSA (Body Surface Area) 2 m2 Laure Faith [facility] Work Phone: 08-24-2014 10:50-0500 Height 175.9 cm Laure Forbesralph [facility] Work Phone: 08-24-2014 10:50-0500 Pulse (Heart Rate) 72 /min Laure Faith [facility] Internal Medicine Work Phone: Comment on above: Pattern: Regular 08-24-2014 10:50-0500 Respiratory Rate 16 /min Laure Allenlucas [facility] Work Phone: Comment on above: Pattern: Unlabored 08-24-2014 10:50-0500 Weight 83.46 kg Heather Howe [facility] Work Phone: 07-09-2014 09:03-0400 BMI (Body Mass Index) 26.68 kg/m2 Janny Milliganchris MCDUFFIE [facility] Work Phone: 07-09-2014 09:03-0400 Body weight 82.56 kg Janny North RETA [facility] Work Phone: 07-09-2014 09:03-0400 BP Diastolic 78 mm[Hg] Janny North RETA [facility] Work Phone: Comment on above: Patient Position: Sitting; Cuff Location : Left Arm; Cuff Size: Standard 07-09-2014 09:03-0400 BP Systolic 110 mm[Hg] Janny Milliganchris MCDUFFIE [facility] Work Phone: Comment on above: Patient Position: Sitting; Cuff Location : Left Arm; Cuff Size: Standard 07-09-2014 09:03-0400 BSA (Body Surface Area) 1.99 m2 Janny Milliganchris MCDUFFIE [facility] Work Phone: 07-09-2014 09:03-0400 Height 175.9 cm Janny North RETA [facility] Work Phone: 07-09-2014 09:03-0400 Pulse (Heart Rate) 80 /min Janny North LPN Comprehens linh Internal Medicine Work Phone: Comment on above: Pattern: Regular 07-09-2014 09:03-0400 Pulse Oximetry 98 % Heather Howe [facility] Work Phone: Comment on above: Room air 07-09-2014 09:03-0400 Respiratory Rate 16 /min Janny North LPN Comprehensiv e Internal Medicine Work Phone: 07-09-2014 09:03-0400 SaO2% (BldA) [Mass fraction] 98 % Janny North RETA [facility]; [facility] Work Phone: Comment on above: Room air 07-09-2014 09:03-0400 Weight 82.56 kg Heather Howe [facility] Work Phone: 07-06-2014 08:55-0400 BMI (Body Mass Index) 26.68 kg/m2 Laure Faith [facility] Work Phone: 07-06-2014 08:55-0400 Body Temperature 97.6 [degF] Laure Faith [facility] Work Phone: 07-06-2014 08:55-0400 Body weight 82.56 kg Laure Faith [facility] Work Phone: 07-06-2014 08:55-0400 BP Diastolic 76 mm[Hg] Laure Faith [facility] Work Phone: Comment on above: Patient Position: Sitting; Cuff Location : Left Arm; Cuff Size: Large 07-06-2014 08:55-0400 BP Systolic 114 mm[Hg] Laure Faith [facility] Work Phone: Comment on above: Patient Position: Sitting; Cuff Location : Left Arm; Cuff Size: Large 07-06-2014 08:55-0400 BSA (Body Surface Area) 1.99 m2 Laure Faith [facility] Work Phone: 07-06-2014 08:55-0400 Height 175.9 cm Laure Faith [facility] Work Phone: 07-06-2014 08:55-0400 Pulse (Heart Rate) 74 /min Laure Faith [facility] Internal Medicine Work Phone: Comment on above: Pattern: Regular 07-06-2014 08:55-0400 Respiratory Rate 16 /min Laure Faith [facility] Work Phone: Comment on above: Pattern: Unlabored 07-06-2014 08:55-0400 Weight 82.56 kg Heather Howe [facility] Work Phone: 06-24-2013 10:30-0400 BMI (Body Mass Index) 28.44 kg/m2 Laure Faith [facility] Work Phone: 06-24-2013 10:30-0400 Body Temperature 97.5 [degF] Laure Faith [facility] Work Phone: 06-24-2013 10:30-0400 Body weight 88 kg Laure Faith [facility] Work Phone: 06-24-2013 10:30-0400 BP Diastolic 82 mm[Hg] Laure Faith [facility] Work Phone: Comment on above: Patient Position: Sitting; Cuff Location : Left Arm; Cuff Size: Large 06-24-2013 10:30-0400 BP Systolic 110 mm[Hg] Laure Faith [facility] Work Phone: Comment on above: Patient Position: Sitting; Cuff Location : Left Arm; Cuff Size: Large 06-24-2013 10:30-0400 BSA (Body Surface Area) 2.04 m2 Laure Faith [facility] Work Phone: 06-24-2013 10:30-0400 Height 175.9 cm Laure Faith [facility] Work Phone: 06-24-2013 10:30-0400 Pulse (Heart Rate) 76 /min Laure Forbesralph Comprehensiv e Internal Medicine Work Phone: Comment on above: Pattern: Regular 06-24-2013 10:30-0400 Respiratory Rate 16 /min Laure Forbesralph [facility] Work Phone: Comment on above: Pattern: Unlabored 06-24-2013 10:30-0400 Weight 88 kg Heather Howe [facility] Work Phone: 12-22-2011 07:50-0500 BMI (Body Mass Index) 27.71 kg/m2 Janny North RETA [facility] Work Phone: 12-22-2011 07:50-0500 Body Temperature 98 [degF] Janny North [employer] SUPERVISOR Comprehensiv e Internal Medicine Work Phone: Comment on above: Method: Oral 12-22-2011 07:50-0500 Body weight 85.73 kg Janny North RETA [facility] Work Phone: 12-22-2011 07:50-0500 BP Diastolic 72 mm[Hg] Janny North RETA [facility] Work Phone: Comment on above: Patient Position: Sitting; Cuff Location : Left Arm; Cuff Size: Standard 12-22-2011 07:50-0500 BP Systolic 122 mm[Hg] Janny North RETA [facility] Work Phone: Comment on above: Patient Position: Sitting; Cuff Location : Left Arm; Cuff Size: Standard 12-22-2011 07:50-0500 BSA (Body Surface Area) 2.02 m2 Janny North RETA [facility] Work Phone: 12-22-2011 07:50-0500 Height 175.9 cm Janny North RETA [facility] Work Phone: 12-22-2011 07:50-0500 Pulse (Heart Rate) 72 /min Janny North P[employer]AL SUPERVISOR Comprehens linh Internal Medicine Work Phone: Comment on above: Pattern: Regular 12-22-2011 07:50-0500 Respiratory Rate 17 /min Janny North POWDERED METAL [facility] Work Phone: 12-22-2011 07:50-0500 Weight 85.73 kg Heather Howe [facility] Work Phone: 12-01-2011 07:46-0500 BMI (Body Mass Index) 27.71 kg/m2 Aida Holland RN [facility] Work Phone: 12-01-2011 07:46-0500 Body Temperature 98.6 [degF] Aida Holland RN [facility] Work Phone: Comment on above: Method: Oral 12-01-2011 07:46-0500 Body weight 85.73 kg Aida Holland RN [facility] Work Phone: 12-01-2011 07:46-0500 BP Diastolic 72 mm[Hg] Aida Holland RN [facility] Work Phone: Comment on above: Patient Position: Sitting; Cuff Location : Left Arm; Cuff Size: Standard 12-01-2011 07:46-0500 BP Systolic 128 mm[Hg] Aida Holland RN [facility] Work Phone: Comment on above: Patient Position: Sitting; Cuff Location : Left Arm; Cuff Size: Standard 12-01-2011 07:46-0500 BSA (Body Surface Area) 2.02 m2 Aida Holland RN [facility] Work Phone: 12-01-2011 07:46-0500 Height 175.9 cm Aida Holland RN [facility] Work Phone: 12-01-2011 07:46-0500 Pulse (Heart Rate) 72 /min Aida Holland RN [facility] Work Phone: Comment on above: Pattern: Regular 12-01-2011 07:46-0500 Respiratory Rate 16 /min Aida Holland RN [facility] Work Phone: Comment on above: Pattern: Unlabored 12-01-2011 07:46-0500 Weight 85.73 kg Heather Howe [facility] Work Phone: 03-07-2011 11:47-0400 BMI (Body Mass Index) 27.71 kg/m2 Laure [facility] Work Phone: 03-07-2011 11:47-0400 Body Temperature 97.4 [degF] [facility] Work Phone: 03-07-2011 11:47-0400 Body weight 85.73 kg Laure [facility] Work Phone: 03-07-2011 11:47-0400 BP Diastolic 76 mm[Hg] La[facility] Work Phone: Comment on above: Patient Position: Sitting; Cuff Location : Left Arm; Cuff Size: Standard 03-07-2011 11:47-0400 BP Systolic 116 mm[Hg] [facility] Work Phone: Comment on above: Patient Position: Sitting; Cuff Location : Left Arm; Cuff Size: Standard 03-07-2011 11:47-0400 BSA (Body Surface Area) 2.02 m2 La[facility] Work Phone: 03-07-2011 11:47-0400 Height 175.9 cm Laure [facility] Work Phone: 03-07-2011 11:47-0400 Pulse (Heart Rate) 64 /min Laure Faith [facility] Work Phone: Comment on above: Pattern: Regular 03-07-2011 11:47-0400 Respiratory Rate 16 /min [facility] Work Phone: Comment on above: Pattern: Unlabored 03-07-2011 11:47-0400 Weight 85.73 kg Heather Howe [facility] Work Phone: 02-14-2011 15:23-0400 BMI (Body Mass Index) 27.27 kg/m2 Laure Faith [facility] Work Phone: 02-14-2011 15:23-0400 Body Temperature 98.1 [degF] La[facility] Work Phone: 02-14-2011 15:23-0400 Body weight 84.37 kg Laure Faith [facility] Work Phone: 02-14-2011 15:23-0400 BP Diastolic 70 mm[Hg] Laure Forbesralph [facility] Work Phone: Comment on above: Patient Position: Sitting; Cuff Location : Left Arm; Cuff Size: Large 02-14-2011 15:23-0400 BP Systolic 104 mm[Hg] La[facility] Work Phone: Comment on above: Patient Position: Sitting; Cuff Location : Left Arm; Cuff Size: Large 02-14-2011 15:23-0400 BSA (Body Surface Area) 2.01 m2 Laure Forbesralph [facility] Work Phone: 02-14-2011 15:23-0400 Height 175.9 cm Laure Forbesralph [facility] Work Phone: 02-14-2011 15:23-0400 Pulse (Heart Rate) 60 /min Laure Faith [facility] Work Phone: Comment on above: Pattern: Regular 02-14-2011 15:23-0400 Respiratory Rate 16 /min Laure Forbesralph [facility] Work Phone: Comment on above: Pattern: Unlabored 02-14-2011 15:23-0400 Weight 84.37 kg Heather Howe [facility] Work Phone: Encounters Encounter Date Encounter Type Care Provider Facility Start: 05-04-2025 ambulatory Heather Howe Facilit y:[facility] Start: 01-05-2025 End: 01-05-[address] Heather Howe DO Work Phone: [facility] Work Phone: Start: 01-05-2025 End: 01-05-2025 Patient encounter procedure Laura Ha -Laboratory Work Phone: Start: 01-05-2025 End: 01-05-2025 ambulatory Laura [place] Facility:[facility] Start: 12-29-2024 End: 12-29-2024 Admission to same day surgery center Dr. Carlos Santo MD -Surgical Day Care Start: 12-29-2024 End: 12-29-[address] Heather Howe DO Work Phone: [facility] Work Phone: Start: 09-23-2024 End: 09-23-2024 Bamboo flowsheet Mariah S Weygandt GOLDSMITH APPRENTICE Work Phone: [facility] Start: 09-23-2024 End: 09-23-2024 Bamboo flowsheet Mariah S Weygandt GOLDSMITH APPRENTICE Work Phone: [facility] Start: 09-23-2024 End: 09-23-2024 Office outpatient visit 25 minutes Mariah S Weygandt GOLDSMITH APPRENTICE Work Phone: [facility] Comment on above: Neuropathy (Primary Dx); RLS (restless legs syndrome) Start: 09-23-2024 End: 09-23-2024 ambulatory MARIAH S WEYGANDT Not Available Start: 06-24-2024 End: 06-25-2024 Refill Kwaku Singleton MD Work Phone: [facility] Comment on above: RLS (restless legs s yndrome) (Primary Dx) Start: 06-24-2024 End: 06-25-2024 Refill Mariah S Weygandt GOLDSMITH APPRENTICE Work Phone: [facility] Comment on above: RLS (restless legs s yndrome) Start: 12-18-2023 End: 12-18-[address] [facility] Work Phone: Start: 12-18-2023 End: 12-18-[address] [facility]-Laboratory Work Phone: Start: 11-06-2023 End: 11-06-2023 ambulatory KWAKU SINGLETON Not Available Start: 10-24-2023 End: 10-24-2023 ambulatory KWAKU ARELI Not Available Start: 09-26-2023 End: 09-26-[address] [facility] Work Phone: Start: 09-26-2023 End: 09-26-[address] [facility] Work Phone: Start: 01-29-2023 End: 01-29-2023 Office outpatient visit 25 minutes Heather Shyam DO Work Phone: [facility] Start: 12-19-2022 ambulatory Heather Shyam DO [facility] Start: 11-02-2022 End: 11-02-[address] [facility] Work Phone: Start: 11-02-2022 End: 11-02-2022 Patient encounter procedure [facility] Start: 03-28-2022 End: 03-28-[address] [facility]-Radiology, [facility] Start: 01-23-2022 End: 01-23-2022 Office outpatient visit 25 minutes Heather Shyam DO Work Phone: [facility] Start: 04-07-2021 End: 04-07-2021 Annotation/Addendum Heather Shyam DO Work Phone: [facility] Start: 04-06-2021 End: 04-06-2021 Office outpatient visit 40 minutes Heather Shyam DO Work Phone: [facility] Start: 04-06-2021 Review Heather Fearo n DO Work Phone: [facility] Start: 01-31-2021 End: 01-31-2021 Office outpatient visit 10 minutes Heather Shyam DO Work Phone: [facility] Start: 11-25-2020 End: 11-25-2020 Office outpatient visit 15 minutes Heather Shyam [facility] Start: 11-22-2020 End: 11-22-2020 Office outpatient visit 10 minutes Heather Shyam [facility] Start: 11-17-2020 End: 11-18-2020 Office outpatient visit 25 minutes Heather Theodore [facility] Start: 08-25-2020 End: 08-25-2020 Annotation/Addendum Heather Theodore Manager [employer] [facility] Medicine Start: 08-25-2020 End: 08-25-2020 Office outpatient visit 15 minutes Heather Theodore [facility] Start: 11-17-2019 End: 11-17-2019 Phone Encounter Heather Theodore Manager [employer] [facility] Start: 11-12-2019 End: 11-12-2019 Office outpatient visit 25 minutes Heather Theodore [facility] Start: 10-01-2018 End: 10-02-2018 Office outpatient visit 25 minutes Heather Howe [facility] Start: 10-01-2018 Review Heather Howe [facility] Start: 08-01-2017 End: 08-01-2017 Office outpatient visit 25 minutes Heather Howe [facility] Start: 07-16-2017 End: 07-16-2017 Phone Encounter Heather Theodore [employer] [facility] Start: 03-27-2016 End: 03-27-2016 Office outpatient visit 25 minutes Heather Theodore [facility] Start: 02-07-2016 End: 02-07-2016 Office outpatient visit 15 minutes Heather Theodore [facility] Start: 01-12-2016 End: 01-12-2016 Phone Encounter Heather Theodore [employer] [facility] Start: 11-19-2015 End: 11-19-2015 Phone Encounter Heather Theodore [employer] [facility] Start: 11-17-2015 End: 11-18-2015 Office outpatient visit 15 minutes Heather Theodore [facility] Start: 03-12-2015 End: 03-12-2015 Office outpatient visit 25 minutes Heather Howe [facility] Start: 11-11-2014 End: 11-12-2014 Office outpatient visit 15 minutes Heather Theodore [facility] Start: 08-24-2014 End: 08-24-2014 Office outpatient visit 15 minutes Heather Theodore [facility] Start: 07-09-2014 End: 07-09-2014 Office outpatient visit 5 minutes Heather Howe [facility] Start: 07-06-2014 End: 07-06-2014 Office outpatient visit 25 minutes Heather Howe [facility] Start: 06-08-2014 End: 06-08-2014 Office outpatient visit 5 minutes Heather Howe [facility] Start: 06-24-2013 End: 06-24-2013 Patient encounter [facility] [employer] [facility] Start: 12-22-2011 End: 12-22-2011 Office outpatient visit 15 minutes Heather Howe [facility] Start: 12-01-2011 End: 12-01-2011 Patient encounter [facility] [employer] [facility] Start: 03-07-2011 End: 03-07-2011 Patient encounter Heather Howe [facility] [employer] [facility] Start: 02-14-2011 End: 02-14-2011 Patient encounter Heather Howe [facility] [employer] [facility] Procedures Date Procedure Procedure Detail Performing Clinician Start: 12-29-[address] Heather wheeler DO Work Phone: Start: 12-29-2024 X-ray of lumbosacral spine Dr. Heather Howe DO Work Phone: Start: 12-29-2024 Destructive procedure of nerve Dr. Heather Howe DO Work Phone: Start: 03-28-2022 End: 03-28-2022 Esophagus Dual Contrast Procedure Note: See Note; NOTES: [facility] Imaging Services [address] [place] [address] Esophagus Dual Contrast MR#: [id number] Acct: [id number] Name: ITA EMERY Rep #: [id number] : 1960 M 61 From: Vaibhav shafer MD PCP: Dr. Heather Howe, DO Status: REG CLI Study: Esophagus Dual Contrast Date of Exam: 03/28/22 Exam# [id number] Ordering Dr: Crescencio Tyler MD STUDY: X-RAY - ESOPHAGUS (BARIUM SWALLOW) WITH FLUOROSCOPY REASON FOR EXAM: Male, 61 years old. DYSPHAGIA TECHNIQUE: 15 view(s) of the esophagus were obtained following swallowing of barium. FLUOROSCOPY TIME (if supplied): (36 seconds) minutes/seconds COMPARISON: None. FINDINGS: There is no demonstrated esophageal foreign body. There is no demonstrated stricture or mucosal abnormality. Normal gastroesophageal junction, without a demonstrated hiatal hernia. The patient ingested a 12 mm tablet of barium without any difficulty. Normal visualized aortic arch and descending thoracic aorta. Normal visualized pulmonary parenchyma. Normal visualized osseous structures of the thorax. RAD/Esophagus Dual Contrast IMPRESSION: Normal plain film x-ray examination (barium swallow) of the esophagus. Electronically Signed: Vaibhav Archer MD at 8:21 EDT , CC: Dr. Heather Howe DO; Dr. Crescencio Tyler MD Roller Engraver: Signed Shira Bragg MD Work Phone: Start: 03-28-2022 Radiography of esophagus Start: 05-18-2021 End: 05-19-2021 12 Lead EKG Comments: See Note; NOTES: [facility] Cardiovascular Services [address] [place] [address] 12 Lead EKG 05/18/21 0907 MR#: [id number] Acct: [id number] Name: ITA EMERY Rep #: [id number] : 1960 60 From: Blu Casiano MD Attending Dr: Mohan Pagan PA-C Status: REG CL I Ordering Dr: Mohan Pagan PA-C Date: 05/18/21 Location: [facility] Sex: M C Admitted: Test Reason : REOP Blood Pressure : / mmHG Vent. Rate : 057 BPM Atrial Rate : 057 BPM P-R Int : 164 ms QRS Dur : 102 ms QT Int : 396 ms P-R-T Axes : 065 087 048 degrees QTc Int : 385 ms Sinus bradycardia Otherwise normal ECG Confirmed by ZACH FONSECA, BLU ([id number]), script editor JUDY WOOTEN ([id number]) on 05/19/2021 1:35:25 PM Referred By: Mohan Pagan Confirmed By:BLU CASIANO MD 05/19/21 1335 Date Blu Casiano MD CC: GIANNA Pagan; Dr. Heather Howe DO Signed Heather Howe DO Work Phone: Start: 04-13-2021 End: 04-13-2021 Pulmonary Function Test Comments: See Note; NOTES: [facility] Pulmonary Services/Neurology [address] [place] [address] MR#: [id number] Acct: [id number] Name: ITA EMERY Rep #: [id number] : 1960 60 From: Abdulaziz Huizar DO Referring Dr: Heather Howe DO Status: REG CL I Location: [facility] Date: 04/12/21 Sex: M C INTRODUCTION: The patient is a 60-year-old male that presents for pulmonary function studies secondary to a diagnosis of abnormal chest x-ray. Respiratory therapy reports good patient effort. Bronchodilators were used during testing. INTERPRETATION: Forced expiration spirometry demonstrates no evidence of a large airways obstructive ventilatory defect. There was no significant response to aerosolized bronchodilators. Spirograms are of good quality and plateau gradually indicating slow emptying of the lungs. Body plethysmography was performed and reveals lung volumes to be within normal limits. Diffusing capacity by single breath CO is also within normal limits. IMPRESSION: Grossly normal pulmonary function studies. 04/13/21936 <Electronically signed by Abdulaziz Huizar DO> Date Abdulaziz Huizar DO CC: Dr. Heather Howe DO Date Dictated: 04/13/21934 Date Transcribed: 04/13/21934 Roller Engraver: HYUN Signed Heather Howe DO Work Phone: Start: 04-06-2021 End: 04-06-2021 Chest PA and Lateral Comments: See Note; NOTES: [facility] Radiology [address] [place] [address] Chest PA and Lateral MR#: [id number] Acct: [id number] Name: ITA EMERY Rep #: [id number] : 1960 M 60 From: Kathy Adrian MD PCP: Dr. Heather Howe DO Status: DEP AMB Study: Chest PA and Lateral Date of Exam: 04/06/21 Exam# [id number] Ordering Dr: Heather Howe DO STUDY: X-RAY CHEST REASON FOR EXAM: Male, 60 years old. ABNORMAL CXR TECHNIQUE: 2 Views COMPARISON: 11/24/2015. FINDINGS: The lungs are clear and expanded. There is no demonstrated pleural abnormality. Normal size heart. Normal mediastinum and ha. Normal visualized pulmonary arteries. Normal visualized aortic arch and descending thoracic aorta. Normal visualized thoracic spine. Normal visualized ribs, clavicles, and shoulders. There is no demonstrated abnormality of the visualized soft tissue structures of the upper abdomen. RAD/Chest PA and Lateral IMPRESSION: Normal x-ray examination of the chest unchanged since 11/17/2015. Electronically Signed: Kathy Adrian, at 11:06 EDT Tel , Service support , CC: Dr. Heather Howe DO Roller Engraver: Signed Heather Howe DO Work Phone: Start: 02-14-2021 End: 02-14-2021 Inj/Asp Augustin Jt Should/Hip/Knee Comments: See Note; NOTES: [facility] Imaging Services [address] [place] [address] Inj/Asp Augustin Jt Should/Hip/Knee MR#: [id number] Acct: [id number] Name: CARLOS EMERY Rep #: [id number] : 1960 M 60 From: Vaibhav shafer MD PCP: Dr. Heather Howe DO Status: REG CLI Study: Inj/Asp Augustin Jt Should/Hip/Knee Date of Exam: 0 02/14/21 Exam# [id number] Ordering Dr: Eze Mckeon MD PROCEDURE: Fluoroscopic guided right shoulder injection. DATE: 02/14/2021 INDICATION: Male, 60 years old. Right shoulder pain. PHYSICIAN: Vaibhav Archer M.D. MEDICATIONS: 12 mg of BETAMETHASONE and 4 cc of 1% LIDOCAINE. 2% lidocaine administered subcutaneously for local anesthesia. ACCESS SITE: Right shoulder. NEEDLE: 22-gauge spinal needle. FLUOROSCOPY TIME (if supplied): (0:42) minutes/seconds. One image was submitted. FINDINGS: The risks, benefits, and alternatives to the procedure were explained to the patient. The specific risks of bleeding, infection, and neurovascular injury were detailed and accepted. Witnessed informed consent was obtained. A 22-gauge spinal needle was positioned under radiographic fluoroscopic localization. Approximately 2 cc of ISOVUE-300 instilled for localization purposes. Medication was then injected. The patient tolerated the procedure well without any immediate complications. RAD/Inj/Asp Augustin Jt Should/Hip/Knee IMPRESSION: 1. Successful fluoroscopic guided right shoulder injection. Electronically Signed: Vaibhav Archer MD at 9:34 EDT , Service support , CC: Dr. Heather Howe DO; Dr. Eze Mckeon MD Roller Engraver: Signed Eze Mckeon Work Phone: Start: 12-04-2017 End: 12-04-2017 Inj/Asp Augustin Jt Should/Hip/Knee Comments: See Note; NOTES: [facility] Imaging Services [address] [place] [address] Inj/Asp Augustin Jt Should/Hip/Knee MR#: [id number] Acct: [id number] Name: CARLOS EMERY Rep #: [id number] : 1960 M 57 From: Vaibhav Archer MD PCP: Heather Howe DO Status: REG CLI Study: Inj/Asp Augustin Jt Should/Hip/Knee Date of Exam: 12/04/17 Exam# [id number] Ordering Dr: Eze Mckeon MD PROCEDURE: Fluoroscopic guided right shoulder Injection DATE: December 04, 2017. INDICATION: Male, 57 years old. Right shoulder pain. PHYSICIAN: Vaibhav Archer M.D. MEDICATIONS: 12 mg of betamethasone and 4 cc of 1% lidocaine. 2% Lidocaine administered subcutaneously for local anesthesia. ACCESS SITE: Right shoulder. NEEDLE: 22-gauge spinal needle. FLUOROSCOPY TIME (if supplied): (0:29) minutes/seconds FINDINGS: The risks, benefits, and alternatives to the procedure were explained to the patient. The specific risks of bleeding, infection, and neurovascular injury were detailed and accepted. Witnessed informed consent was obtained. A 22-gauge spinal needle was positioned under radiographic fluoroscopic localization. Approximately 2 cc of Isovue-300 instilled for localization purposes. Medication was then injected. The patient tolerated the procedure well without any immediate complications. The patient was placed supine with head elevated and returned to the floor in stable condition. RAD/Inj/Asp Augustin Jt Should/Hip/Knee IMPRESSION: 1. Successful fluoroscopic guided right shoulder injection. Electronically Signed: Vaibhav Archer MD at 10:38 EST Tel [phone], Service support , CC: Heather Howe DO; Eze Mckeon MD Roller Engraver: Signed Eze Mckeon Work Phone: Start: 03-15-2016 End: 03-15-2016 PT D/C Summary (1) Comments: See Note; NOTES: [facility] Physical Therapy [facility] [address] [place] [address] Fax REHABILITATION SERVICES DISCHARGE SUMMARY MR#: [id number] Acct: [id number] Name: CARLOS EMERY Rep #: [id number] : 1960 55 From: Jamshid Veras PT, ATC Referring Dr.: Bonnie Torres DO Status: REG RCR Insurance: [employer] - PT D/C Summary It has been my pleasure to treat CARLOS EMERY under orders from Bonnie Torres DO, for the diagnosis of R shoulder pain for a total of 12 visit(s). Discharge Date: Please see the following information for a summary of their discharge status. - Subjective Subjective: Pt reports no sig changes at this time - Pain R shoulder Pain Intensity (Out of 10): 2 - Objective Objective/Function: R shoulder ROM: flex= 114, abd= 92, ER= 14, IR= min jenkins. R shoulder MMT: flex and IR= 5/5, abd and ER= 4-/5. Pain ranges from 2-10/10. Pt is not progressing toward Rx goals at this time - Goals Goal 1:: Decrease R shoulder pain x 50% to aid with sleep Goal 2:: Increase R shoulder ROM flex and abd x 30 degrees to aid with IADL's Goal 3:: Increase R shoulder strength to aid with RT exercise Goal 4:: I with HEP - Plan Plan: discontinue - D/C Information If there are questions or concerns regarding this patient's physical therapy, please feel free to call me at [phone]. Thank you for the referral of this patient. Sincerely, Jamshid Veras <Electronically signed by Jamshid Veras PT, ATC> 03/15/16 8670 CC: Bonnie Torres DO [facility] Signed Heather Howe Start: 02-07-2016 End: 02-07-2016 Forearm 2 Views Comments: See Note; NOTES: [facility] Imaging Services [address] [place] [address] Verdana 4d Forearm 2 Views MR#: [id number] Acct: [id number] Name: CARLOS EMERY Rep #: [id number] : 1960 M 55 From: Jamshid Liriano MD PCP: Bonnie Torres DO Status: REG CLI Study: Forearm 2 Views Date of Exam: 02/07/16 Exam# [id number] Ordering Dr: Bonnie Torres DO STUDY: X-RAY - RIGHT RADIUS AND ULNA REASON FOR EXAM: Male, 55 years old. PAIN AND SWELLING DISTAL THIRD OF ARM. OVER USE INJURY TECHNIQUE: 2 view(s) of the forearm. COMPARISON: None. FINDINGS: There is no demonstrated soft tissue swelling. Normal visualized radius. Normal visualized ulna. IMPRESSION: Normal x-ray examination of the radius and ulna. Electronically Signed: Jamshid Liriano MD at 16:49 EDT , Service support [phone], RAD/Forearm 2 Views IMPRESSION: Normal x-ray examination of the radius and ulna. Electronically Signed: Jamshid Liriano MD at 16:49 EDT , Service support [phone], CC: Bonnie Torres DO Roller Engraver: Signed Bonnie Torres Work Phone: Start: 02-07-2016 End: 02-07-2016 Wrist min 3 Views Comments: See Note; NOTES: [facility] Imaging Services [address] [place] [address] Verdana 4d Wrist min 3 Views MR#: [id number] Acct: [id number] Name: CARLOS EMERY Rep #: [id number] : 1960 M 55 From: Jamshid Liriano MD PCP: Bonnie Torres DO Status: REG CLI Study: Wrist min 3 Views Date of Exam: 02/07/16 Exam# [id number] Ordering Dr: Bonnie Torres DO STUDY: X-RAY - RIGHT WRIST REASON FOR EXAM: Male, 55 years old. PAIN AND SWELLING DISTAL THIRD OF ARM FROM OVER USE TECHNIQUE: 3 view(s) of the wrist were obtained. COMPARISON: None. FINDINGS: Normal visualized distal radius and ulna. Normal radiocarpal articulation. Normal distal radioulnar articulation. Normal carpal bones. Normal carpal articulations. Normal carpometacarpal articulation of the thumb. Normal second through fifth carpometacarpal articulations. Normal visualized metacarpal bones. The soft tissue structures are unremarkable. IMPRESSION: Normal x-ray examination of the wrist. Electronically Signed: Jamshid Liriano MD at 16:53 EDT , Service support [phone], RAD/Wrist min 3 Views IMPRESSION: Normal x-ray examination of the wrist. Electronically Signed: Jamshid Liriano MD at 16:53 EDT , Service support [phone], CC: Bonnie Torres DO Roller Engraver: Signed Bonnie Bear Phone: Start: 02-04-2016 End: 02-04-2016 Upper Ext Joint Only(Routine) Comments: See Note; NOTES: [facility] Imaging Services [address] [place] [address] Verdana 4d Upper Ext Joint Only(Routine) MR#: [id number] Acct: [id number] Name: CARLOS EMERY Rep #: [id number] : 1960 M 55 From: Osman Stover MD PCP: Bonnie Torres DO Status: REG CLI Study: Upper Ext Joint Only(Routine) Date of Exam: 02/04/16 Exam# [id number] Ordering Dr: Bonnie Torres DO STUDY: MRI RIGHT SHOULDER REASON FOR EXAM: Male, 55 years old. Right shoulder pain during movement. Reaching injury 5 months ago TECHNIQUE: Standardized fat and water weighted pulse sequences were obtained in all 3 orthogonal planes. COMPARISON: None. FINDINGS: There is tendinosis of the supraspinatus and infraspinatus tendons without tear. Normal subscapularis tendon. Normal teres minor tendon. Normal supraspinatus muscle. Normal infraspinatus muscle. Normal subscapularis muscle. Normal teres minor muscle. Normal glenohumeral articulation. There are small cystic changes and bone marrow edema in the greater tuberosity the humerus Normal biceps labral complex. Normal intracapsular long biceps tendon. There is a SLAP lesion (coronal proton density series 4 image 14) Normal capsulo- ligamentous complex. Normal rotator interval. There is moderate arthrosis of the acromioclavicular articulation. There is a Type II morphology (curved), with a neutral orientation. There is no subacromial-subdeltoid bursal fluid. Normal visualized coracohumeral and coracoacromial ligaments. Normal quadrilateral space. Normal axillary space. Normal deltoid muscle. Normal trapezius muscle. IMPRESSION: Supraspinatus and infraspinatus tendinosis without tear. SLAP lesion. Moderate arthrosis of the acromioclavicular joint. Electronically Signed: Osman Stover MD, FACR at 10:15 EDT , Service support [phone], CC: Bonnie Torres DO Roller Engraver: Signed Bonnie Torres Work Phone: Start: 11-24-2015 End: 11-25-2015 Chest PA and Lateral Comments: See Note; NOTES: [facility] Imaging Services [address] [place] [address] Sh[place]ana 4d Chest PA and Lateral MR#: [id number] Acct: [id number] Name: CARLOS EMERY Rep #: [id number] : 1960 M 55 From: Osman Stover MD PCP: Bonnie Torres DO Status: REG CLI Study: Chest PA and Lateral Date of Exam: 11/24/15 Exam# [id number] Ordering Dr: Bonnie Torres DO STUDY: X-RAY CHEST REASON FOR EXAM: Male, 55 years old. Abdominal findings in the lungs on recent shoulder x-rays TECHNIQUE: PA and lateral views of the chest. COMPARISON: None. FINDINGS: The lungs are clear and expanded. There is minimal right pleural apical thickening Normal size heart. Normal mediastinum and ha. Normal visualized pulmonary arteries. Normal visualized aortic arch and descending thoracic aorta. There are diffuse degenerative changes of the visualized thoracic spine. Normal visualized ribs, clavicles, and shoulders. There is no demonstrated abnormality of the visualized soft tissue structures of the upper abdomen. IMPRESSION: No signs of acute cardiopulmonary disease. Minimal right pleural apical thickening. Electronically Signed: Osman Stover MD, FACR at 11:39 EST , Service support [phone], RAD/Chest PA and Lateral IMPRESSION: No signs of acute cardiopulmonary disease. Minimal right pleural apical thickening. Electronically Signed: Osman Stover MD, FACR at 11:39 EST , Service support [phone], CC: Bonnie Torres DO Roller Engraver: Signed Bonnie Torres Work Phone: Start: 11-17-2015 End: 11-18-2015 A/C Jts Wilfrid w or w/o Wts Comments: See Note; NOTES: [facility] Imaging Services [address] [place] [address] Verdana 4d A/C Jts Wilfrid w or w/o Wts MR#: [id number] Acct: [id number] Name: CARLOS EMERY Rep #: [id number] : 1960 M 55 From: Omar Glez MD PCP: Bonnie Torres DO Status: REG CLI Study: A/C Jts Wilfrid w or w/o Wts Date of Exam: 11/17/15 Exam# [id number] Ordering Dr: Bonnie Torres DO Study: Bilateral acromioclavicular joints. Clinical history: Chronic pain over right acromioclavicular region. Procedure: Bilateral acromioclavicular joints with and without weightbearing 3 views. Previous study: None. Findings: There are minimal degenerative changes of the left and right acromioclavicular joints. There is no evidence of a.c. joint separation or fracture. There is right apical pleural thickening. No abnormal soft tissue calcifications are noted about either a acromioclavicular joint. IMPRESSION: Minimal degenerative changes of the left and right acromioclavicular joints. Right apical pleural thickening. Electronically Signed: Omar Glez MD at 23:53 EST , Service support [phone], RAD/A/C Jts Wilfrid w or w/o Wts IMPRESSION: Minimal degenerative changes of the left and right acromioclavicular joints. Right apical pleural thickening. Electronically Signed: Omar Glez MD at 23:53 EST , Service support [phone], CC: Bonnie Torres DO Roller Engraver: Signed Bonnie Torres Work Phone: Start: 09-29-2014 End: 10-01-2014 Sleep Study Report Comments: See Note; NOTES: [facility] [place] [place] [address] Polysomnography with NCPAP MR#: [id number] Acct: [id number] Name: CARLOS EMERY Rep #: [id number] : 1960 53 From: Kwaku Singleton MD PCP: Bonnie Torres DO Status: REG CLI Ordering Dr.: Bonnie Torres DO Date: 09/16/14 Sex: M C REFERRING PHYSICIAN: Dr. Torres. SLEEP HISTORY: This is a CPAP titration study performed on this 53-year-old male with a body mass index of 26.1 and an Clarkia Sleepiness Scale score of 14. There is a history of hypertension, gastroesophageal reflux disease, and a previous diagnosis of obstructive sleep apnea with a supine AHI of 29, an overall AHI of 5.7/13. The patient did not experience REM sleep during the diagnostic study. MEDICATIONS AT THE TIME OF STUDY: Include Tums, multivitamin, pantoprazole. MASK USED DURING THIS STUDY: Olea and Paykel Simplus large mask with with heated humidity. SCORING RULES: Respiratory events were acquired and scored in accordance with the Recommended Standards and Specifications as outlined in the AASM Manual for the Scoring of Sleep and Associated Events (most recent version). Please note that a reference to [facility] AHI in this report is consistent with the current Hypopnea definition according to Medicare Criteria and an AASM AHI reference is consistent with the current Hypopnea definition according to the AASM criteria. PROCEDURE: The study was attended continuously by a large animal husbandry technician. Monitored parameters included left and right EOG, frontal, central, and occipital EEG, mental and submental EMG, left and right anterior tibialis EMG, signal ECG waveform, snore, continuous airflow with PAP device flow signal, chest and abdominal plethysmography efforts, oxygen saturation with heart rate, and body positioning with video monitoring. SLEEP SUMMARY: Lights off occurred at 10:19 p.m. and lights on at 5:03 a.m. for a total recording time of 404 minutes and a total sleep time of 159 minutes. Sleep efficiency was 39.3% and sleep latency was 10.1 minutes. There was 1 REM period with a REM latency of 109 minutes. All sleep stages are identified during this study. The total AHI for the study was 7.2 by CMS criteria and 17.4 by AASM criteria. The REM index was 4.4. The supine index was 52.3. The patient was supine for 50 minutes and 30 seconds of sleep. Pulse rate ranged from 52-88 beats per minute with a mean of 62 beats per minute. No arrhythmias were identified. Oxygen saturation ranged from 100% to 90% during sleep with a mean of 96.4%. No desaturations were identified. PLM index was 25.7 during the study, all of which were not associated with arousals. Nasal CPAP was initiated at 7 cm. This was titrated to 11 cm. Then, due to inadequate control of events, was changed to BiPAP. At BiPAP settings, however, the AHI was unacceptably high. REM sleep was not recorded while in BiPAP. IMPRESSION: 1. Obstructive sleep apnea. 2. Periodic leg movements of sleep. RECOMMENDATIONS: 1. The patient should be acclimatized to a nasal CPAP setting of 7 cm with an EPR of 3 and the above documented mask size. This is an inadequate titration. After the patient has acclimatized for approximately 1 month, repeat CPAP titration should be performed. 2. Periodic leg movements of sleep are of unclear clinical significance and may improve with adequate CPAP therapy, if not and they are associated with excessive daytime somnolence despite adequate CPAP compliance, dopaminergic agents may be of benefit. INTERPRETING PHYSICIAN: Kwaku Singleton MD CC: Kwaku Singleton MD [id number] 09/29/14 1643 <Electronically signed by Kwaku Singleton MD > Date Kwaku Singleton MD Co-signature (if applicable) Date Signed Bonnie Cotter [employer] Work Phone: Start: 08-08-2014 End: 08-08-2014 Sleep Study Report Comments: See Note; NOTES: [facility] [address] [place] [address] Polysomnography MR#: [id number] Acct: [id number] Name: CARLOS EMERY Rep #: [id number] : 1960 53 From: Kwaku Singleton MD PCP: Bonnie Torres DO Status: REG CLI Ordering Dr.: Bonnie Torres DO Date: 08/04/14 Sex: M C REFERRING PHYSICIAN: Dr. Torres. SLEEP HISTORY: This is a diagnostic polysomnogram performed on this 53-year-old male with a body mass index of 26.1 and a history of snoring, witnessed apneas, and COPD. SCORING RULES: Respiratory events were acquired and scored in accordance with the Recommended Standards and Specifications as outlined in the AASM Manual for the Scoring of Sleep and Associated Events (most recent version). Please note that a reference to [facility] AHI in this report is consistent with the current Hypopnea definition according to Medicare Criteria and an AASM AHI reference is consistent with the current Hypopnea definition according to the AASM criteria. PROCEDURE: The study was attended continuously by a large animal husbandry technician. Monitored parameters included left and right EOG, frontal, central, and occipital EEG, mental and submental EMG, left and right anterior tibialis EMG, signal ECG waveform, snore, continuous airflow with thermistor and nasal pressure transducer, chest and abdominal plethysmography efforts, oxygen saturation with heart rate, and body positioning with video monitoring. SLEEP SUMMARY: Lights off occurred at 10:28 p.m. and lights on at 5:04 a.m. for a total recording time of 396.2 minutes and a total sleep time of 350.3 minutes. Sleep efficiency was 88.4% and sleep latency was 14.9 minutes. REM latency was 93.5 minutes. There were 3 REM periods, all sleep stages are identified during this study. The AHI was 5.7 by CMS criteria and 13.0 by AASM criteria, there were similar numbers during REM sleep; however, during supine sleep during which the patient was supine for 2 hours and 6 minutes, the AHI walter to 29. Pulse rate ranged from 57-97 beats per minute with a mean of 92 beats per minute during sleep. Oxygen saturation ranged from 86% to 98% with a mean of 94.6%. Desaturations below 88% occurred for 1.2 minutes of sleep time. The total leg movement index was 22.6, 4.6 per hour were associated with arousals, but none with wakefulness. IMPRESSION: 1. Mild obstructive sleep apnea with a moderate component in the supine position. 2. Periodic leg movements of sleep. RECOMMENDATIONS: 1. CPAP titration study. 2. Periodic leg movements of sleep may improve with adequate CPAP therapy, if they persist and are associated with sleep disruptions, dopaminergic agents maybe effective. INTERPRETING PHYSICIAN: Kwaku Singleton MD CC: Kwaku Singleton MD [id number] 08/08/14 1225 <Electronically signed by Kwaku Singleton MD > JOYNER Date Kwaku Singleton MD Co-signature (if applicable) Date Signed Heather Howe Start: 07-09-2014 End: 07-09-2014 Spmtry w/vc expiratory fred w/wo mxml vol vntj _ Bonnie Torres Work Phone: Start: 07-06-2014 End: 07-06-2014 Foot min 3 Views Comments: See Note; NOTES: [facility] Imaging Services [address] [place] [address] Radiology Report MR#: [id number] Acct: [id number] Name: ALBINACARLOS Yehuda Rep #: [id number] : 1960 M 53 From: Vaibhav Archer MD PCP: Bonnie Torres DO Status: REG CLI Study: Foot min 3 Views Date of Exam: 07/06/14 Exam# [id number] Ordering Dr: Bonnie Torres DO STUDY: X-RAY - LEFT FOOT CLINICAL: Male, 53 years old. Pain. TECHNIQUE: 3 view(s) of the foot. COMPARISON: None. FINDINGS: Normal talus, calcaneus, and tarsal bones. Normal visualized subtalar, talonavicular, calcaneocuboid, tarsal and tarsometatarsal articulations. Normal metatarsi. Normal metatarsophalangeal joint of the great toe. Normal tibial and fibular sesamoid bones. Normal interphalangeal joint of the great toe. Normal phalanges of the great toe. Normal second through fifth metatarsophalangeal joints. Normal interphalangeal joints and phalanges of the lesser toes. The soft tissue structures are unremarkable. IMPRESSION: Normal x-ray examination of the foot. Electronically Signed: Vaibhav Archer MD at 16:11 EDT Tel [phone], Service support [phone], CC: Bonnie Torres DO Roller Engraver: Signed Bonnie Torres Work Phone: Start: 07-06-2014 End: 07-07-2014 L/S Spine Min 4 Views Comments: See Note; NOTES: [facility] Imaging Services [address] [place] [address] Radiology Report MR#: [id number] Acct: [id number] Name: CARLOS EMERY Rep #: [id number] : 1960 53 From: Ghazal Espinal MD PCP: Bonnie Torres DO Status: REG CLI Study: L/S Spine Min 4 Views Date of Exam: 07/06/14 Exam# [id number] Ordering Dr: Bonnie Torres DO STUDY: X-RAY - LUMBAR SPINE REASON FOR EXAM: Male, 53 years old pain no injury. TECHNIQUE: 5 view(s) of the lumbar spine were obtained. COMPARISON: None FINDINGS: There is straightening of the normal lumbar lordosis. There is no substantial scoliosis. There is a normal alignment of the vertebrae. Normal vertebral bodies and endplates. Normal disc space heights. The soft tissue structures are unremarkable. IMPRESSION: No acute fracture or subluxation in the lumbar spine. If symptoms persist, followup exam is suggested. Electronically Signed: Ghazal Espinal MD at 6:01 EDT Tel , Service support [phone], CC: Bonnie Torres DO Roller Engraver: Signed Bonnie Torres Work Phone: Start: 07-06-2014 End: 07-06-2014 Thoracic Spine 3 Views Comments: See Note; NOTES: [facility] Imaging Services [address] [address] Radiology Report MR#: [id number] Acct: [id number] Name: CARLOS EMERY Rep #: [id number] : 1960 53 From: Ghazal Espinal MD PCP: Bonnie Torres DO Status: REG CLI Study: Thoracic Spine 3 Views Date of Exam: 07/06/14 Exam# [id number] Ordering Dr: Bonnie Torres DO STUDY: X-RAY - THORACIC SPINE REASON FOR EXAM: Male, 53 years old pain no injury. TECHNIQUE: 3 view(s) of the thoracic spine were obtained. COMPARISON: None. FINDINGS: Normal kyphosis of the thoracic spine. There is no substantial scoliosis. There is osteopenia with mild chronic appearing deformity of the midthoracic vertebral endplates. There is multilevel endplate spondylosis of the thoracic vertebrae. There is multilevel disc space narrowing of the thoracic spine. The soft tissue structures are unremarkable. IMPRESSION: Multilevel degenerative changes in the thoracic spine without acute fracture. If symptoms persist, followup exam is suggested. Electronically Signed: Ghazal Espinal MD at 22:26 EDT Tel , Service support [phone], CC: Bonnie Torres DO Roller Engraver: Signed Bonnie Vahe Brian Work Phone: Start: 05-05-2014 End: 05-05-2014 Operative Report Comments: See Note; NOTES: [facility] Medical Records Department [address] [place] [address] Operative Report MR#: [id number] Acct: [id number] Name: CARLOS EMERY Rep #: [id number] : 1960 53 From: Crescencio Tyler MD PCP: Bonnie Torres DO Status: REG CLI DATE OF SERVICE: PROCEDURE PERFORMED: EGD with removal of foreign body from the esophagus PREOPERATIVE DIAGNOSIS: The patient with dysphagia and foreign body in the esophagus. POSTOPERATIVE DIAGNOSIS: Large piece of meat dislodged from the esophageal wing and hiatal hernia. The patient's stomach full of food. MEDICATIONS GIVEN: Fentanyl 50 mcg, Versed 3 mg, topical Cetacaine spray to retropharynx. INSTRUMENT: Olympus upper endoscope. DESCRIPTION OF PROCEDURE: Informed consent was obtained prior to the procedure. The patient was brought to procedure room, placed shoulder down and given the above medications. Fentanyl and Versed were titrated. The endoscope was passed under direct vision down the esophagus, proximal esophagus appeared normal. Toward the distal esophagus, there was a large piece of meat ____ at the GE junction. The patient was coughing and with some pressure with the scope, the piece of meat was pushed directly down into the stomach. There was a hiatal hernia, the stomach was completely full of food. I did not visualize any ulcer disease. The pylorus was noted and there were no other abnormalities. The scope was withdrawn from the stomach. Examination of the GE junction showed no evidence of any lacerations or bleeding. At this point, the scope was slowly withdrawn from the esophagus and the patient tolerated the procedure well. IMPRESSION: Foreign body in the esophagus with esophageal ring and hiatal hernia. PLAN: The patient should avoid eating meat. He needs to go on a PPI daily. We will arrange for an outpatient endoscopy with dilatation. MD Savage Carlos C: Bonnie Torres DO T: NTS JOB: [id number] 05/05/14 0827 <Electronically signed by Crescencio Tyler MD> Date Crescencio Tyler MD CC: Bonnie Torres DO; Crescencio Tyler Date Dictated: 05/04/142150 Date Transcribed: 05/04/142150 Roller Engraver: Signed Dr. Crescencio Tyler Work Phone: Start: 05-04-2014 End: 05-05-2014 Emergency Department Summary Comments: See Note; NOTES: [facility] Medical Records Department [address] [place] [address] Emergency Department Summary MR#: [id number] Acct: [id number] Name: CARLOS EMERY Rep #: [id number] : 1960 53 From: Carlos Sagastume MD PCP: Bonnie Torres DO Status: REG CLI DATE OF SERVICE: 05/04/2014 CHIEF COMPLAINT: Meat stuck in his throat. HISTORY OF PRESENT ILLNESS: This is a 53-year-old gentleman who has had a history of recent swallowing difficulties. He has had a history of reflux in the past, has had prior upper and lower endoscopy. Basically, he was at dinner night with one of the cardiologists here from the hospital, when he get it, what they think is a piece of meat stuck in his throat. He is unable to swallow his own saliva. Denies any trouble breathing. PHYSICAL EXAMINATION: GENERAL: A well-appearing, middle-aged white gentleman. VITAL SIGNS: Stable and afebrile. He does not look septic or toxic. HEENT: Unremarkable. He is unable to swallow his own saliva, he is spitting in a bag. NECK: Nontender, no masses. LUNGS: Clear to auscultation bilaterally. HEART: Regular rate and rhythm. No murmur. ABDOMEN: Soft, nontender, nondistended. No organomegaly or masses. EXTREMITIES: Moves all 4. NEUROLOGICAL: Normal. EMERGENCY DEPARTMENT COURSE: The patient most likely has esophageal obstruction secondary to meat bolus, he will be given IV glucagon, I already have GI on page, if the glucagon does not work and he is still able to swallow. PLAN: I will have GI come in to do upper endoscopy. IMPRESSION: Esophageal obstruction secondary to meat bolus. MD Savage Vargas C: Bonnie Tyler MD T: [facility] JOB: [id number] 05/04/142226 <Electronically signed by Carlos Sagastume MD> Date Carlos Sagastume MD CC: Bonnie Torres DO; Blu Casiano MD Date Dictated: 05/04/142038 Date Transcribed: 05/04/142038 Roller Engraver: Signed Heather Howe Start: 05-05-2011 Colonoscopy Kwaku Singleton MD Work Phone: Left shoulder re attachment with orthopedics -- dr paco Nur RN INTERVENTIONAL Left shoulder re attachment with orthopedics -- dr paco Mason CMA no signifcant surgeries Nadia Manalanna no signifcant surgeries Licha Gravius no signifcant surgeries Charlie Dhillon no signifcant surgeries Bethanie Watson no signifcant surgeries Licha Gravius MARGAUX no signifcant surgeries Charlie Dhillon LPN no signifcant surgeries Licha Nur CMA no signifcant surgeries Jayant Mason CMA Plan of Treatment Date Care Activity Detail Author Start: 09-22-2025 End: 09-22-2025 Patient encounter procedure 09/22/2025 9:00 AM EST Office Visit [facility] [address] [place] [id number] Mariah Esteban NP [address] [place] [address] [facility] Start: 12-29-2024 Anes dx/ther nerve block/injection prone pos ANESTH N BLOCK/INJ PRONE [facility] Start: 12-29-2024 Dstr nrolytc agnt parverteb fct addl lmbr/sacral DESTROY L/S FACET JNT ADDL [facility] Start: 12-29-2024 Dstr nrolytc agnt parverteb fct sngl lmbr/sacral DESTROY LUMB/SAC FACET JNT [facility] Start: 12-29-2024 X-ray of lumbosacral spine L/S Spine Min [address] [facility] Start: 12-29-2024 XR Spine Lumbar and Sacrum GE [address] [facility] Start: 12-29-2024 [facility] Start: 09-23-2024 End: 09-23-2024 Patient encounter procedure [facility] Comment on above: Arrived Start: 06-15-2024 Influenza vaccination Influenza Vacc ine (#1) [facility] Start: 09-26-[address] [facility] Start: 09-26-2023 Serum immunofixation [facility] Start: 09-26-2023 Urine protein [address] [facility] Start: 01-29-2023 Procedure Education Eprescribe d prescriptions (G8877) [facility]; [facility] Work Phone: Start: 01-29-2023 Provider Instruction s for Treatment Reviewed Garment Form Assembler Letter [facility]; [facility] Work Phone: Start: 01-29-2023 Hemoglobin glycosyla satnam a1c HGB A1C (46756) [facility]; [facility] Work Phone: Start: 01-29-2023 25 hydroxy includes fractions if performed CALCIFIDIOL (85339) VIT D 25 [facility]; [facility] Work Phone: Start: 01-29-2023 Assay of thyroid stimulating hormone tsh TSH (21551) [facility]; [facility] Work Phone: Start: 01-29-2023 Urnls dip stick/tabl et reagent auto microscopy URINALYSIS, W/ MICRO (54244) [facility]; [facility] Work Phone: Start: 01-29-2023 Urine albumin quantitative MICROALBUMIN: CREATININE RATIO (03934) AND (80959) [facility]; [facility] Work Phone: Start: 01-29-2023 Comprehensive metabo lic panel METABOLIC PANEL, COMPREHENSIVE (17847) [facility]; [facility] Work Phone: Start: 01-29-2023 Lipid panel LIPID PANEL (84880) [facility]; [facility] Work Phone: Start: 01-29-2023 Blood count complete auto&auto difrntl wbc CBC W/AUTO DIFF WBC (97007) [facility]; [facility] Work Phone: Start: 01-23-2022 Procedure Education Eprescribe d prescriptions (G8553) [facility]; [facility] Work Phone: Start: 01-23-2022 Provider Instruction s for Treatment [facility]; [facility] Work Phone: Start: 01-23-2022 Assay of prostate specific antigen total PSA (PROSTATE SPECIFIC ANTIGEN) (V76.44) [facility]; [facility] Work Phone: Start: 01-23-2022 25 hydroxy includes fractions if performed CALCIFIDIOL (22388) VIT D 25 [facility]; [facility] Work Phone: Start: 01-23-2022 Lipid panel LIPID PANEL (95836) [facility]; [facility] Work Phone: Start: 05-05-2021 Screening for malign ant neoplasm of colon [facility] Start: 04-06-2021 Procedure Education Eprescribe d prescriptions (G8553) [facility]; [facility] Work Phone: Start: 04-06-2021 Provider Instruction s for Treatment [facility]; [facility] Work Phone: Start: 04-06-2021 Assay of prostate specific antigen total PSA (PROSTATE SPECIFIC ANTIGEN) (V76.44) [facility]; [facility] Work Phone: Start: 04-06-2021 Assay of thyroid stimulating hormone tsh TSH (25862) [facility]; [facility] Work Phone: Start: 04-06-2021 Lipid panel LIPID PANEL (76878) [facility]; [facility] Work Phone: Start: 04-06-2021 Blood count complete auto&auto difrntl wbc CBC W/AUTO DIFF WBC (28830) [facility]; [facility] Work Phone: Start: 04-06-2021 25 hydroxy includes fractions if performed CALCIFIDIOL (44886) VIT D 25 [facility]; [facility] Work Phone: Start: 04-06-2021 Assay of magnesium MAGNESIUM (17920) [facility]; [facility] Work Phone: Start: 04-06-2021 Comprehensive metabo lic panel METABOLIC PANEL, COMPREHENSIVE (65814) [facility]; [facility] Work Phone: Start: 04-06-2021 Urinalysis qual/semiquant except immunoassays URINALYSIS (65942) [facility] Work Phone: Start: 01-31-2021 Procedure Education Eprescribe d prescriptions (G8553) [facility]; [facility] Work Phone: Start: 11-25-2020 Procedure Education Eprescribe d prescriptions (G8553) [facility] Work Phone: Start: 11-25-2020 Provider Instruction s for Treatment [facility]; [facility] Work Phone: Start: 11-25-2020 Lipid panel LIPID PANEL (02599) [facility] Work Phone: Start: 11-25-2020 HbA1c (Bld) [Mass fraction] HGB A1C (14311) [facility]; [facility] Work Phone: Start: 11-25-2020 Hemoglobin glycosyla satnam a1c HGB A1C (14658) [facility]; [facility] Work Phone: Start: 11-22-2020 Procedure Education Eprescribe d prescriptions (G8553) [facility]; [facility] Work Phone: Start: 11-22-2020 Provider Instruction s for Treatment *Trigger Point Injections [facility]; [facility] Work Phone: Start: 11-17-2020 Patient Education EFUDEX INSTRUCTION S [facility]; [facility] Work Phone: Start: 11-17-2020 Procedure Education Eprescribe d prescriptions (G8553) [facility]; [facility] Work Phone: Start: 11-17-2020 Provider Instruction s for Treatment [facility]; [facility] Work Phone: Start: 08-25-2020 Procedure Education Eprescribe d prescriptions (G8553) [facility] Work Phone: Start: 08-25-2020 Iaadiadoo influenza [facility] Work Phone: Start: 11-12-2019 Procedure Education Eprescribe d prescriptions (G8553) [facility] Work Phone: Start: 11-12-2019 Provider Instruction s for Treatment [facility] Work Phone: Start: 10-01-2018 Procedure Education Eprescribe d prescriptions (G8553) [facility] Work Phone: Start: 10-01-2018 Provider Instruction s for Treatment [facility] Work Phone: Start: 10-01-2018 Protein mass conc LIPOPROTEIN, BLD, BY NMR (46599) [facility] Work Phone: Start: 10-01-2018 25 hydroxy includes fractions if performed CALCIFIDIOL (41087) VIT D 25 [facility] Work Phone: Start: 10-01-2018 Cobalamin (Vitamin B 12) mass conc VITAMIN B-12 (CYANOCOBALAMIN) (52374) [facility] Work Phone: Start: 10-01-2018 Thyrotropin Qn TSH (77417) [facility] Work Phone: Start: 10-01-2018 Sedimentation rate r bc non-automated SED RATE ERYTHROCYTE (38675) [facility] Work Phone: Start: 10-01-2018 Comprehensive metabo lic panel METABOLIC PANEL, COMPREHENSIVE (87982) [facility] Work Phone: Start: 10-01-2018 CRP mass conc C-REACTIVE PRO TEIN (68228) [facility] Work Phone: Start: 10-01-2018 Blood count complete automated CBC (AUTO) (05016) [facility] Work Phone: Start: 10-01-2018 Nuclear Ab IF titer (S) ESTEPHANIE (A NTINUCLEAR ANTIBODY) (96651) [facility] Work Phone: Start: 08-01-2017 Procedure Education Eprescribe d prescriptions (G8553) [facility] Work Phone: Start: 08-01-2017 Provider Instruction s for Treatment Follow up in 6 months [facility] Work Phone: Start: 03-27-2016 Patient Education Heartburn *: gerd [facility] Work Phone: Start: 03-27-2016 Procedure Education Eprescribe d prescriptions (G8553) [facility] Work Phone: Start: 03-27-2016 Provider Instruction s for Treatment [facility] Work Phone: Start: 02-07-2016 Provider Instruction s for Treatment [facility] Work Phone: Start: 11-17-2015 Procedure Education Eprescribe d prescriptions (G8553) [facility] Work Phone: Start: 11-11-2014 Comprehensive metabo lic panel METABOLIC PANEL, COMPREHENSIVE (05912) [facility] Work Phone: Start: 11-11-2014 Hemoglobin A1c/Hemoglobin.total mass fraction (Bld) Hemoglobin Glyclated (HGB A1C) (37011) [facility] Work Phone: Start: 11-11-2014 Hemoglobin glycosyla satnam a1c Hemoglobin Glyclated (HGB A1C) (87522) [facility]; [facility] Work Phone: Start: 11-11-2014 Lipid panel LIPID PANEL (04951) [facility] Work Phone: Start: 11-11-2014 Procedure Education Eprescribe d prescriptions (G8553) [facility] Work Phone: Start: 08-24-2014 Patient Education Hemorrhoids: Brief Version *: hemorrhoids [facility] Work Phone: Start: 08-24-2014 Procedure Education Eprescribe d prescriptions (G8553) [facility] Work Phone: Start: 07-06-2014 Patient Education Plantar Fasc iitis *: foot pain [facility] Work Phone: Start: 07-06-2014 Procedure Education Eprescribe d prescriptions (G8553) [facility] Work Phone: Start: 06-24-2013 Provider Instruction s for Treatment Diet, Exercise, and Wt loss [facility] Work Phone: Start: 1960 Screening for malign ant neoplasm of colon [facility] Albumin [Moles/volum e] in Serum or Plasma [facility] Albumin/Globulin ratio [facility] Arsenic measurement [facility] Electrophoresis: urysr-5-cpmlolhg [facility] Electrophoresis: jolene ma globulin [facility] Fluid sample globuli n level [facility] Globulin measurement [facility] IgA [Mass/volume] in Serum or Plasma [facility] IgG [Mass/volume] in Serum or Plasma [facility] IgM [Mass/volume] in Serum or Plasma [facility] Lead measurement [facility] Measurement of monoclonal protein concentration [facility] Mercury measurement, blood [facility] Patient referral [facility] Work Phone: Protein [Mass/volume ] in Urine [facility] Protein electrophore sis panel - Serum or Plasma [facility] Protein measurement, urine [facility] Urine albumin measurement [facility] Work Phone[facility] Work Phone: [facility] Work Phone: [facility] Work Phone[facility] Work Phone: [facility] Work Phone[facility] Work Phone: [facility] Work Phone: [facility] Work Phone: [facility] Work Phone: [facility] Work Phone: [facility] Work Phone: [facility] Work Phone: [facility] Work Phone: [facility] Work Phone: [facility] Work Phone: [facility]; [facility] Work Phone: [facility]; [facility] Work Phone: [facility]; [facility] Work Phone[facility]; [facility] Work Phone: [facility] Work Phone: [facility] Immunizations Immunization Date Immunization Notes Care Provider [facility] 10-03-2022 influenza virus vaccine, unspecified formulation Kwaku Singleton MD Work Phone: [facility] 01-14-2021 COVID-19 (Moderna) Heather Shyam DO Work Phone: [facility]; [facility] Work Phone: 01-13-2021 COVID-Moderna (100 MCG/0.5 ML) Heather Shyam DO Work Phone: [facility]; [facility] Work Phone: 10-15-2020 COVID-Moderna (100 MCG/0.5 ML) Heather Shyam DO Work Phone: [facility]; [facility] Work Phone: Payers Date Payer Category Payer [employer] ( [employer] others) [id number] 2024 Self-pay [id number] 2019 [employer] others) FOR LIFE [id number] 2019-Present [address] [place] [id number] 2019 () [id number] 2019 Department of [facility] e ( and others) [id number] 1960 Unknown [id number] 1960 Unknown [id number] 1960 Unknown [id number] 1960 Unknown [id number] Unknown Unknown [id number] Unknown [id number] Unknown [id number] Social History Date Type Detail Facility Alcohol Use: Former smoker [facility] Work Phone: Comment on above: very rarely Start: 11-06-2023 End: 09-23-2024 Caffeine Use [facility] [employer] [facility] Work Phone: Comment on above: quit 10 years ago- s moked for 30 years- 1-2 ppd Tobacco use: Former smoker. [facility] Work Phone: Alcohol Use: Alcohol Use: [facility] Work Phone: Comment on above: very rarely Tobacco use: Tobacco use: [facility] Work Phone: Start: 05-04-2014 End: 05-04-2014 Tobacco smoking status [facility] Unknown if ever smoked [facility] Start: 1960 Sex Assigned At Male [facility] Start: 11-06-2023 End: 12-17-2024 Tobacco smoking status [facility] Ex-smoker [facility] Start: 08-24-1986 End: 08-24-2001 History of tobacco use Current smoker [facility] Start: 08-24-1986 End: 08-24-2001 History of tobacco use Cigarette Smoker [facility] Start: 11-06-2023 End: 09-23-2024 Tobacco use and exposure Smokeless tobacco non-user [facility] Start: 11-06-2023 End: 09-23-2024 Alcoholic beverage intake Current drinker of alcohol (finding) [facility] Start: 09-11-2023 End: 09-23-2024 Alcohol Use Disorder Identification Test - Consumption [AUDIT-C] [facility] How often to you hav e a drink containing alcohol? 4 or more times a week [facility] How many standard dr inks containing alcohol do you have on a typical day? 1 or 2 [facility] How often do you hav e 6 or more drinks on 1 occasion? Never [facility] Start: 09-11-2023 Alcohol Comment caffeine: 32 o z coffee [facility] Start: 1960 Sex assigned at Not on file [facility] Start: 12-29-2024 End: 01-10-2025 Sex Male (finding) [facility] Goals Date Patient Goal Desired Activity /State Functional Status Date Assessment Result Facility 11-22-2020 LP-IR Score LP-IR Score 26 [facility]; [facility] Work Phone: Comment on above: INSULIN RESISTANCE M CESAR <--Insulin Sensitive Insulin Resistant--> Percentile in Reference PopulationInsulin Resistance ScoreLP-IR Score Low 25th 50th 75th High <27 27 45 63 >63LP-IR Score is inaccurate if patient is non-fasting. .The LP-IR score is a laboratory developed index that has beenassociated with insulin resistance and diabetes risk and should beused as one component of a physician's clinical assessment. Test(s) 206992-XBM-H ; 359245-AFZ-M; 354466-Xirpiaesbfpsh; 285760-Dnapgfzdauy, Total; 487268-HLM-U (Total); 903489-Bfqcs LDL-P; 991385-VAR Size; 681765-DB-RO Scorewas developed and its performance characteristics determinedby [employer]. It has not been cleared or approved by the Foodand Drug Administration.PATIENT WAS FASTINGPERFORMED BY: [employer] [id number] [facility] [id number] BY: [employer] [id number] [facility] [id number] 02-27-2020 LP-IR Score LP-IR Score 36 [facility] Work Phone: Comment on above: INSULIN RESISTANCE M CESAR <--Insulin Sensitive Insulin Resistant--> Percentile in Reference PopulationInsulin Resistance ScoreLP-IR Score Low 25th 50th 75th High <27 27 45 63 >63LP-IR Score is inaccurate if patient is non-fasting. .The LP-IR score is a laboratory developed index that has beenassociated with insulin resistance and diabetes risk and should beused as one component of a physician's clinical assessment. Test(s) 822482-VKK-Q ; 488019-TDN-Z; 810008-UTC-F; 023011-Fjqneaduqzwqw; 813411-Rotzfzrqauv, Total; 980832-NHB-H (Total);386473-Yxlup LDL-P; 535246-IXC Size; 174174-SQ-CL Scorewas developed and its performance characteristics determinedby [employer]. It has not been cleared or approved by the Foodand Drug Administration.PATIENT WAS FASTINGPERFORMED BY: [employer] [id number] [facility] [id number] 11-12-2019 LP-IR Score LP-IR Score 33 [facility] Work Phone: Comment on above: INSULIN RESISTANCE M ARKER <--Insulin Sensitive Insulin Resistant--> Percentile in Reference PopulationInsulin Resistance ScoreLP-IR Score Low 25th 50th 75th High <27 27 45 63 >63LP-IR Score is inaccurate if patient is non-fasting. .The LP-IR score is a laboratory developed index that has beenassociated with insulin resistance and diabetes risk and should beused as one component of a physician's clinical assessment. Test(s) 669835-NVX-Q ; 651373-MCY-Y; 704990-XVO-X; 709954-Zwyvwiaqlnsgh; 251923-Kclkolchnht, Total; 197183-LGC-M (Total);275486-Lyuea LDL-P; 429695-NCC Size; 101274-YW-WG Scorewas developed and its performance characteristics determinedby [employer]. It has not been cleared or approved by the Foodand Drug Administration.PATIENT WAS FASTINGPERFORMED BY: [employer] [address] [id number] BY: [employer] [id number] [facility] [id number] 10-04-2018 LP-IR Score LP-IR Score 27 [facility] Work Phone: Comment on above: INSULIN RESISTANCE M ARKER <--Insulin Sensitive Insulin Resistant--> Percentile in Reference PopulationInsulin Resistance ScoreLP-IR Score Low 25th 50th 75th High <27 27 45 63 >63LP-IR Score is inaccurate if patient is non-fasting. .The LP-IR score is a laboratory developed index that has beenassociated with insulin resistance and diabetes risk and should beused as one component of a physician's clinical assessment. TheLP-IR score listed above has not been cleared by the [place] Food andDrug Administration. PATIENT WAS FASTINGP ERFORMED BY: [employer] [address] [id number] BY: BIANCA [facility]6370 [facility] [id number] Mental Status Date Assessment Result Facility 12-29-2024 Cognitive function Voice/Name [facility] Work Phone: Clinical Notes 06-25-2024 to 12-29-2024 Mariah Esteban, GOLDSMITH APPRENTICE - 09/23/2024 9:00 AM ESTTelephone Encounter - Josefina Guerra - 06/25/2024 1:35 PM EDTTelephone Encounter - Josefina Guerra - 06/25/2024 1:35 PM EDT Note Date & Type Note Facility 12-29-[address] [facility] 12-29-[address] [facility] 12-29-[address] [facility] 09-23-2024 History of Presen t illness Narrative Images from the original note were not included. CHIEF COMPLAINT: Rls neuropathy HISTORY OF PRESENT ILLNESS: 63 year old male presented to office to follow up on rls and neuropathy. GBN at bedtime remains effective for rls, sleeps well at night. Last visit recommended to take vitamin b 12, tolerates well. Denies n/t/burning sensation to bilateral lower legs. No falls, denies gait instability, stays active daily. Denies further questions or concerns. Current Outpatient Medications on File Prior to Visit Medication Sig Dispense Refill finasteride (Proscar) 5 MG tablet 1 (one) time each day at the same time gabapentin (Neurontin) 300 MG capsule Take 4 capsules (1,200 mg) by mouth at bedtime 360 capsule 1 pantoprazole (ProtoNix) 40 MG EC tablet Take 40 mg by mouth in the morning. pravastatin (Pravachol) 20 MG tablet Take 20 mg by mouth in the morning. Cyanocobalamin (VITAMIN B 12 PO) Take 1,000 mcg by mouth Daily [DISCONTINUED] gabapentin (Neurontin) 300 MG capsule take 3 capsules by mouth at bedtime [DISCONTINUED] gabapentin (Neurontin) 300 MG capsule Take 4 capsules (1,200 mg) by mouth at bedtime 360 capsule 1 [DISCONTINUED] gabapentin (Neurontin) 300 MG capsule take 4 capsules by mouth at bedtime 360 capsule 1 No current facility-administered medications on file prior to visit. Past Medical History: Diagnosis Date High cholesterol (CMS/HCC) MAGGIE (obstructive sleep apnea) RLS (restless legs syndrome) Past Surgical History: Procedure Laterality Date ROTATOR CUFF REPAIR Left TRIGGER FINGER RELEASE right hand middle finger Family History Problem Relation Name Age of Onset No Known Problems Mother No Known Problems Father Social History Tobacco Use Smoking status: Former Current packs/day: 0.00 Average packs/day: 0.5 packs/day for 15.0 years (7.5 ttl pk-yrs) Types: Cigarettes Start date: 08/24/1986 Quit date: 08/24/2001 Years since quittin.0 Smokeless tobacco: Never Substance Use Topics Alcohol use: Yes Alcohol/week: 3.0 standard drinks of alcohol Types: 3 Standard drinks or equivalent per week Comment: caffeine: 32 oz coffee ALLERGIES: Patient has no known allergies. REVIEW OF SYSTEMS: General: Appetite change: denies. Chills: denies. Fever: denies. Allergy/Immunology: Unusual rection to medications, food, animals or insects reaction: denies. Ophthalmologic: Visual acuity change: denies. ENT: Decreased hearing: denies. Endocrine: Weight loss: denies. Respiratory: Cough: denies. Wheezing: denies. Cardiovascular: Chest pain: denies. Palpitations: denies. Gastrointestinal: Abdominal pain: denies. Difficulty swallowing: denies Hematology: Bleeding problems: denies. Genitourinary: Painful urination: denies. Musculoskeletal: Joint pain: denies. Joint edema: denies. Skin: Rash: denies. Neurologic: Ataxia: denies, Tremor: denies. Psychiatric Anxiety: denies. Depression: denies. Insomnia: denies. Suicidal thoughts: denies. Also see HPI for elements of ROS documented therein and for details of positive findings, which shall supersede the foregoing. OBJECTIVE: Objective Vitals: 09/23/24 0901 BP: 120/78 Pulse: 70 SpO2: 98% Weight: 192 lb 8 oz Height: 5' 10 Body mass index is 27.62 kg/m . Examination: General Exam: pleasant, well nourished, well developed, in no acute distress Head: normocephalic, atraumatic Eyes: extraocular movement intact (EOMI), pupils equal, round, reactive to light, upper eyelids normal , lower eyelids normal Ears: no obvious hearing deficit Nose: Nares patent Neck/Throat: neck supple, full range of motion Oral Cavity: mucosa moist Skin: warm and dry Heart: no murmurs, regular rate and rhythm, S1, S2 normal Lungs: clear to auscultation bilaterally, good air movement, no wheezes, rales, rhonci, speaks in full sentences Chest: normal shape and expansion Abdomen: bowel sounds present, soft, nontender, nondistended, no guarding or rigidity Extremities: no edema, no cyanosis Musculoskeletal: no swelling or deformity Neurologic: nonfocal, alert and oriented, cognitive exam grossly normal, cranial nerves 2-12 grossly intact, motor strength 5/5 bilateral symmetrically, no drift, coordination intact, sensory exam intact, gait normal Psych: pleasant, cooperative, good eye contact, speech clear, judgement and insight good ASSESSMENT/PLAN: 1. RLS (restless legs syndrome) Stable, continue gbn 1200 mg at bedtime- denies need to adjust dosage - gabapentin (Neurontin) 300 MG capsule; Take 4 capsules (1,200 mg) by mouth at bedtime Dispense: 360 capsule; Refill: 3 2. Neuropathy (Primary) 10/24/23 EMG/NCS: mild peripheral neuropathy Stable, continue Vitamin b 12 1000 mcg daily, currently on gbn Pt has been fully educated on their diagnosis, treatment options, follow up plan, and return instructions. documented in this encounter [facility] 06-25-2024 Telephone encount er Note The following refill is being requested Medication: Gabapentin Dosage: 300mg Frequency: 4 tablets at night Day supply requested: Pharmacy: [facility] Next scheduled appt: 09/23/2024 Is pt out of medication? Not yet Patient's [facility] closed, this is a new pharmacy [facility] 06-25-2024 Miscellaneous Notes Formattin g of this note might be different from the original. The following refill is being requested Medication: Gabapentin Dosage: 300mg Frequency: 4 tablets at night Day supply requested: Pharmacy: [facility] Next scheduled appt: 09/23/2024 Is pt out of medication? Not yet Patient's [facility] closed, this is a new pharmacy documented in this encounter [facility] Consult note Note Date/Time December 29, 2024 7:47am [facility] Medical Records Department [address] [place] [address] Pre-Anesthesia Evaluation 12/29/24 0740 MR#: [id number] Acct: [id number] Name: ITA EMERY Rep #:[id number] : 1960 64 From: Hunter Guevara MD PCP: Dr. Heather Howe, DO Status:RE G SDC Y Race: C Location: [place] [address] ASA Classification* ASA Classification ASA Classification: 2 Assessment & Plan Anesthesia* Anesthesia Assessment Anesthesia Assessment: Discussed sedation and/or anesthesia options, risks, benefits, and alternatives with patient/parents/legal guardian/POA. Questions invited. The patient/parents/legal guardian/POA seems to understand and agrees to proceedwith anesthesia plan. Reviewed the physical assessment, medical history, allergy history and patient home medications list prior to surgery/procedure/anesthetic and documented any changes. Performed airway and anesthesia risk assessments. Anesthesia Type Anesthesia Type: MAC History Source History Obtained from:: Patient and Chart Anesthesia Focused Assessment* Temperature: 97.9 F Pulse Rate: 76 Blood Pressure: 123/73 Respiratory Rate: 18 Pulse Ox: 99 Oxygen Delivery Method: Room Air Airway Assessment Mouth opens: >3 cm Mallampati Score: III Teeth Condition: Caps/Crowns (Left lower molar has a crown. It is tight.) and Missing (Right lower molar is missing. Rest of the teeth are tight.) Neck Range of motion (ROM): Limited ROM Focused Labs Anesthesia Preop lab: CBC WBC 5.9 K/mm3 (4.4-11.0) 09/26/23 08:24 09/26/23 RBC 5.16 M/mm3 (4.6-6.2) 09/26/23 08:24 09/26/23 Hgb 14.8 g/dL (13.0-16.5) 09/26/23 08:24 09/26/23 Hct 46.3 % (40-54) 09/26/23 08:24 09/26/23 Plt Count 302 K/mm3 (150-450) 09/26/23 08:24 09/26/23 CHEMISTRY Potassium 4.0 mmol/L (3.5-5.1) 09/26/23 08:24 09/26/23 Sodium 138 mmol/L (136-145) 09/26/23 08:24 09/26/23 BUN 14 mg/dL (7-18) 09/26/23 08:24 09/26/23 Creatinine 1.07 mg/dL (0.70-1.30) 09/26/23 08:24 09/26/23 Glucose 96 mg/dL (74-106) 09/26/23 08:24 09/26/23 TSH 1.23 uIU/mL (0.358-3.74) 09/26/23 08:24 COAG Pre-Assessment Diagnosis/Proposed Procedure Planned Operative Procedure(s): LEFT LUMBAR RFA AT MEDIAL BRANCH OF L4-L5 AND [id number] FLUOROSCOPY Anesthesia History 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 When Was Last Pacemaker Check QUESTION #4 FULL TEXT: You/Your Family Experience fever (hyperthermia) with Anesthesia Last Oral Intake Last Oral intake: Last Oral Intake NPO since 21:00 12/29/24 07:02 Meds taken in AM with sips of Yes 12/29/24 07:02 water? 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 Female No 12/17/24 13:55 HX of Motion Sickness No 12/17/24 13:55 HX of N/V After Surgery No 12/17/24 13:55 Non-Smoker Yes 12/17/24 13:55 Duration of Surgery greater No 12/17/24 13:55 than 60 minutes Number of Risk Factors 1 12/17/24 13:55 PONV Score Low Risk 12/17/24 13:55 Height & Weight Height & Weight: Anesthesia: Height & Weight Height 5 ft 11 in 12/29/24 07:02 Weight: 89.448 kg 12/29/24 07:02 Body Mass Index (BMI) 27.5 12/29/24 07:02 Respiratory Assessment Respiratory Assessment - collection systems technician: Respiratory Tract Infection Hx - collection systems technician Hx Respiratory Tract Infection No 12/17/24 13:55 STOP Sleep Apnea STOP Sleep Apnea - collection systems technician: STOP Sleep Apnea - collection systems technician Hx Hypertension No 12/17/24 13:55 Hx Sleep Apnea Yes 12/17/24 13:55 CPAP Yes 12/17/24 13:55 BIPAP No 12/17/24 13:55 Do you snore loudly (louder than talking or can be heard Do you often feel tired/ fatigued/ sleepy during daytime? Has anyone observed you stop breathing during sleep? STOP Results Positive 12/17/24 13:55 QUESTION #5 FULL TEXT : Do you snore loudly (louder than talking or can be heard through closed doors)? 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 Specify any problems Hx of Preganancy in last 3 N/A 12/17/24 13:55 Months Nurse Filling Out Transfusion [id number] 12/17/24 13:55 & Questions: Date: 12/17/24 12/17/24 13:55 Time: 13:57 12/17/24 13:55 Patient unable to answer at this time (ie. confused, unrespo /Reproduction History /Reproductive History - collection systems technician: /Reproductive Hx- collection systems technician Hx Now Gestational Age (in weeks): EDC: Hx Hx Para Hx Section [facility] Medical History Wears glasses History of steroid therapy Prostate disease Back pain Trigger middle finger Rotator cuff arthropathy of left shoulder Gastric reflux COPD (chronic obstructive pulmonary disease) Home Medications ?Medication ?Instructions ?Recorded ?Last Taken ?Type cholecalciferol (vitamin D3) 125 125 mcg PO DAILY 03/0812/28/24 History mcg (5,000 unit) tablet (Vitamin D3) finasteride 5 mg tablet 5 mg PO DAILY 12/17/2412/28 History gabapentin 300 mg capsule 300 mg PO QHS 12/17/2412/28 History glucosamine sulfate 500 mg tablet 1,000 mg PO QDAY 03/0812/28/24 History (Glucosamine) pantoprazole 40 mg tablet,delayed 40 mg PO DAILY 12/1712/29/24 04:30 History release pravastatin 20 mg tablet 20 mg PO DAILY 12/17/2412/13 History tamsulosin 0.4 mg capsule (Flomax) 0.4 mg PO DAILY 03/0812/28/24 History Allergy/AdvReac Type Severity Reaction Status Date / Time No Known Allergies Allergy Verified 12/29/24 06:57 Surgical History (Updated 12/29/24 @ 07:[address] Hunter Guevara MD) H/O radiofrequency ablation (RFA) of nerve of lumbar spine Trigger finger, right middle finger S/P left rotator cuff repair Social History Smoking Status: Former smoker Review of Systems (Anesthesia) ROS Narrative System reviewed and no additional complaints, except as documented. 12/29/24 0747 <Electronically signed by Hunter kraus MD> Date _ Hunter Guevara MD Cosigner Signature: Date CC: ~ Signed [facility] Work Phone: Consult note Author Latanya Granda [facility] Note Date/Time December 29, 2024 8:2 7am [facility] Medical Records Department [address] [place] [address] Anesthesia Postop Eval I 12/29/24825 MR#: [id number] Acct: [id number] Name: ITA EMERY Rep #:[id number] : 1960 64 From: Latanya Granda CRNA PCP: Dr. Heather Howe, DO Status:RE G [facility] [place] Y Race: C Location: [place] [address] Anesthesia: Postop Eval I Current Vital Signs Temperature: 97 F Pulse Rate: 78 Blood Pressure: 132/93 Respiratory Rate: 14 Pulse Ox: 98 Assessment Airway patent: Yes Spontaneous unlabored respirations: Yes Mental status: Awake nausea: No Vomiting: No Anesthesia Complication: No Fluid Hydration Crystalloid volume administer (ml): 10 Total IV fluid infused: 10 Progress Note Anesthesia document: Postop Eval 1 completed: Yes 12/29/24826 <Electronically signed by Latanya torres COMMUNICATIONS CONTROLLER> Date _ Latanya Granda CRNA Cosigner Signature: Date CC: ~ Signed [facility] Work Phone: Evaluation noteNo assessment information available [facility] Work Phone: Evaluation note* Diagnosis RLS (restless legs syndrome)- Primary Restless legs syndrome (RLS) documented in this encounter [facility] HealthcareEvaluation [facility]* Diagnosis RLS (restless legs syndrome) Restless legs syndrome (RLS) documented in this encounter [facility] HealthcareEvaluation note* Diagnosis Neuropathy- Primary Mononeuritis of unspecified site RLS (restless legs syndrome) Restless legs syndrome (RLS) documented in this encounter [facility] HealthcareInstructions* Name Dates Details Patient Instructions Indication:Nonsmoker Start:31-Jan-2021 Instruction Type:Provider Instructions for Treatment How to Access Health Informa tion Online using Patient Portal and 3rd Republican Apps Indication:Nonsmoker Start:31-Jan-2021 Instruction Type:Patient Education How to Access Health Informa tion Online using Patient Portal and 3rd [employer] Apps Indication:Nonsmoker Start:25-Nov-2020 Instruction Type:Patient Education Patient Instructions Indication:Nonsmoker Start:25-Nov-2020 Instruction Type:Provider Instructions for Treatment How to Access Health Informa tion Online using Patient Portal and 3rd [employer] Apps Indication:Nonsmoker Start:22-Nov-2020 Instruction Type:Patient Education Patient Instructions Indication:Nonsmoker Start:22-Nov-2020 Instruction Type:Provider Instructions for Treatment Patient Instructions Indication:Nonsmoker Start:17-Nov-2020 Instruction Type:Provider Instructions for Treatment How to Access Health Informa tion Online using Patient Portal and 3rd [employer] Apps Indication:Nonsmoker Start:17-Nov-2020 Instruction Type:Patient Education How to access health informa tion online Indication:BMI 28.0-28.9,adult Start:25-Aug-2020 Instruction Type:Patient Education How to access health informa tion online - Detail Indication:BMI 28.0-28.9,adult Start:25-Aug-2020 Instruction Type:Patient Education Patient Instructions Indication:BMI 28.0-28.9,adult Start:25-Aug-2020 Instruction Type:Provider Instructions for Treatment How to access health informa tion online Indication:Nonsmoker Start:12-Nov-2019 Instruction Type:Patient Education How to access health informa tion online Indication:Nonsmoker Start:12-Nov-2019 Instruction Type:Patient Education Patient Instructions Indication:Nonsmoker Start:12-Nov-2019 Instruction Type:Provider Instructions for Treatment How to access health informa tion online Indication:Nonsmoker Start:01-Oct-2018 Instruction Type:Patient Education How to access health informa tion online - Detail Indication:Nonsmoker Start:01-Oct-2018 Instruction Type:Patient Education Patient Instructions Indication:Nonsmoker Start:01-Oct-2018 Instruction Type:Provider Instructions for Treatment How to access health informa tion online Indication:Impaired Fasting Glucose (Renamed from Elevated fasting blood sugar) Start:01-Aug-2017 Instruction Type:Patient Education How to access health informa tion online - Detail Indication:Impaired Fasting Glucose (Renamed from Elevated fasting blood sugar) Start:01-Aug-2017 Instruction Type:Patient Education Patient Instructions Indication:Impaired Fasting Glucose (Renamed from Elevated fasting blood sugar) Start:01-Aug-2017 Instruction Type:Provider Instructions for Treatment How to access health informa tion online Indication:GERD (gastroesophageal reflux disease) Start:27-Mar-2016 Instruction Type:Patient Education How to access health informa tion online - Detail Indication:GERD (gastroesophageal reflux disease) Start:27-Mar-2016 Instruction Type:Patient Education Patient Instructions Indication:GERD (gastroesophageal reflux disease) Start:27-Mar-2016 Instruction Type:Provider Instructions for Treatment How to access health informa tion online Indication:Chronic right shoulder pain Start:17-Nov-2015 Instruction Type:Patient Education How to access health informa tion online - Detail Indication:Chronic right shoulder pain Start:17-Nov-2015 Instruction Type:Patient Education Patient Instructions Indication:Chronic right shoulder pain Start:17-Nov-2015 Instruction Type:Provider Instructions for Treatment Patient Instructions Indication:Impaired Fasting Glucose (Renamed from Elevated fasting blood sugar) Start:12-Mar-2015 Instruction Type:Provider Instructions for Treatment Patient Instructions Indication:Impaired Fasting Glucose (Renamed from Elevated fasting blood sugar) Start:11-Nov-2014 Instruction Type:Provider Instructions for Treatment Patient Instructions Indication:Hemorrhoids, unspecified hemorrhoid type Start:24-Aug-2014 Instruction Type:Provider Instructions for Treatment Patient Instructions Indication:GERD (gastroesophageal reflux disease) Start:06-Jul-2014 Instruction Type:Provider Instructions for Treatment Patient Instructions Indication:Chronic obstructive pulmonary disease Start:24-Jun-2013 Instruction Type:Provider Instructions for Treatment [facility] Work Phone: Instructions* Name Dates Details Patient Instructions Indication:Nonsmoker Start:31-Jan-2021 Instruction Type:Provider Instructions for Treatment How to Access Health Informa tion Online using Patient Portal and [employer] Apps Indication:Nonsmoker Start:31-Jan-2021 Instruction Type:Patient Education How to Access Health Informa tion Online using Patient Portal and 3rd [employer] Apps Indication:Nonsmoker Start:25-Nov-2020 Instruction Type:Patient Education Patient Instructions Indication:Nonsmoker Start:25-Nov-2020 Instruction Type:Provider Instructions for Treatment How to Access Health Informa tion Online using Patient Portal and 3rd [employer] Apps Indication:Nonsmoker Start:22-Nov-2020 Instruction Type:Patient Education Patient Instructions Indication:Nonsmoker Start:22-Nov-2020 Instruction Type:Provider Instructions for Treatment Patient Instructions Indication:Nonsmoker Start:17-Nov-2020 Instruction Type:Provider Instructions for Treatment How to Access Health Informa tion Online using Patient Portal and 3rd [employer] Apps Indication:Nonsmoker Start:17-Nov-2020 Instruction Type:Patient Education How to access health informa tion online Indication:BMI 28.0-28.9,adult Start:25-Aug-2020 Instruction Type:Patient Education How to access health informa tion online - Detail Indication:BMI 28.0-28.9,adult Start:25-Aug-2020 Instruction Type:Patient Education Patient Instructions Indication:BMI 28.0-28.9,adult Start:25-Aug-2020 Instruction Type:Provider Instructions for Treatment How to access health informa tion online Indication:Nonsmoker Start:12-Nov-2019 Instruction Type:Patient Education How to access health informa tion online Indication:Nonsmoker Start:12-Nov-2019 Instruction Type:Patient Education Patient Instructions Indication:Nonsmoker Start:12-Nov-2019 Instruction Type:Provider Instructions for Treatment How to access health informa tion online Indication:Nonsmoker Start:01-Oct-2018 Instruction Type:Patient Education How to access health informa tion online - Detail Indication:Nonsmoker Start:01-Oct-2018 Instruction Type:Patient Education Patient Instructions Indication:Nonsmoker Start:01-Oct-2018 Instruction Type:Provider Instructions for Treatment How to access health informa tion online Indication:Impaired Fasting Glucose (Renamed from Elevated fasting blood sugar) Start:01-Aug-2017 Instruction Type:Patient Education How to access health informa tion online - Detail Indication:Impaired Fasting Glucose (Renamed from Elevated fasting blood sugar) Start:01-Aug-2017 Instruction Type:Patient Education Patient Instructions Indication:Impaired Fasting Glucose (Renamed from Elevated fasting blood sugar) Start:01-Aug-2017 Instruction Type:Provider Instructions for Treatment How to access health informa tion online Indication:GERD (gastroesophageal reflux disease) Start:27-Mar-2016 Instruction Type:Patient Education How to access health informa tion online - Detail Indication:GERD (gastroesophageal reflux disease) Start:27-Mar-2016 Instruction Type:Patient Education Patient Instructions Indication:GERD (gastroesophageal reflux disease) Start:27-Mar-2016 Instruction Type:Provider Instructions for Treatment How to access health informa tion online Indication:Chronic right shoulder pain Start:17-Nov-2015 Instruction Type:Patient Education How to access health informa tion online - Detail Indication:Chronic right shoulder pain Start:17-Nov-2015 Instruction Type:Patient Education Patient Instructions Indication:Chronic right shoulder pain Start:17-Nov-2015 Instruction Type:Provider Instructions for Treatment Patient Instructions Indication:Impaired Fasting Glucose (Renamed from Elevated fasting blood sugar) Start:12-Mar-2015 Instruction Type:Provider Instructions for Treatment Patient Instructions Indication:Impaired Fasting Glucose (Renamed from Elevated fasting blood sugar) Start:11-Nov-2014 Instruction Type:Provider Instructions for Treatment Patient Instructions Indication:Hemorrhoids, unspecified hemorrhoid type Start:24-Aug-2014 Instruction Type:Provider Instructions for Treatment Patient Instructions Indication:GERD (gastroesophageal reflux disease) Start:06-Jul-2014 Instruction Type:Provider Instructions for Treatment Patient Instructions Indication:Chronic obstructive pulmonary disease Start:24-Jun-2013 Instruction Type:Provider Instructions for Treatment [facility] Work Phone: Instructions* Name Dates Details Patient Instructions Indication:Impaired Fasting Glucose (Renamed from Elevated fasting blood sugar) Start:06-Apr-2021 Instruction Type:Provider Instructions for Treatment How to Access Health Informa tion Online using Patient Portal and 3rd Republican Apps Indication:Impaired Fasting Glucose (Renamed from Elevated fasting blood sugar) Start:06-Apr-2021 Instruction Type:Patient Education Patient Instructions Indication:Nonsmoker Start:31-Jan-2021 Instruction Type:Provider Instructions for Treatment How to Access Health Informa tion Online using Patient Portal and 3rd Republican Apps Indication:Nonsmoker Start:31-Jan-2021 Instruction Type:Patient Education How to Access Health Informa tion Online using Patient Portal and 3rd Republican Apps Indication:Nonsmoker Start:25-Nov-2020 Instruction Type:Patient Education Patient Instructions Indication:Nonsmoker Start:25-Nov-2020 Instruction Type:Provider Instructions for Treatment How to Access Health Informa tion Online using Patient Portal and 3rd [employer] Apps Indication:Nonsmoker Start:22-Nov-2020 Instruction Type:Patient Education Patient Instructions Indication:Nonsmoker Start:22-Nov-2020 Instruction Type:Provider Instructions for Treatment Patient Instructions Indication:Nonsmoker Start:17-Nov-2020 Instruction Type:Provider Instructions for Treatment How to Access Health Informa tion Online using Patient Portal and 3rd Republican Apps Indication:Nonsmoker Start:17-Nov-2020 Instruction Type:Patient Education How to access health informa tion online Indication:BMI 28.0-28.9,adult Start:25-Aug-2020 Instruction Type:Patient Education How to access health informa tion online - Detail Indication:BMI 28.0-28.9,adult Start:25-Aug-2020 Instruction Type:Patient Education Patient Instructions Indication:BMI 28.0-28.9,adult Start:25-Aug-2020 Instruction Type:Provider Instructions for Treatment How to access health informa tion online Indication:Nonsmoker Start:12-Nov-2019 Instruction Type:Patient Education How to access health informa tion online Indication:Nonsmoker Start:12-Nov-2019 Instruction Type:Patient Education Patient Instructions Indication:Nonsmoker Start:12-Nov-2019 Instruction Type:Provider Instructions for Treatment How to access health informa tion online Indication:Nonsmoker Start:01-Oct-2018 Instruction Type:Patient Education How to access health informa tion online - Detail Indication:Nonsmoker Start:01-Oct-2018 Instruction Type:Patient Education Patient Instructions Indication:Nonsmoker Start:01-Oct-2018 Instruction Type:Provider Instructions for Treatment How to access health informa tion online Indication:Impaired Fasting Glucose (Renamed from Elevated fasting blood sugar) Start:01-Aug-2017 Instruction Type:Patient Education How to access health informa tion online - Detail Indication:Impaired Fasting Glucose (Renamed from Elevated fasting blood sugar) Start:01-Aug-2017 Instruction Type:Patient Education Patient Instructions Indication:Impaired Fasting Glucose (Renamed from Elevated fasting blood sugar) Start:01-Aug-2017 Instruction Type:Provider Instructions for Treatment How to access health informa tion online Indication:GERD (gastroesophageal reflux disease) Start:27-Mar-2016 Instruction Type:Patient Education How to access health informa tion online - Detail Indication:GERD (gastroesophageal reflux disease) Start:27-Mar-2016 Instruction Type:Patient Education Patient Instructions Indication:GERD (gastroesophageal reflux disease) Start:27-Mar-2016 Instruction Type:Provider Instructions for Treatment How to access health informa tion online Indication:Chronic right shoulder pain Start:17-Nov-2015 Instruction Type:Patient Education How to access health informa tion online - Detail Indication:Chronic right shoulder pain Start:17-Nov-2015 Instruction Type:Patient Education Patient Instructions Indication:Chronic right shoulder pain Start:17-Nov-2015 Instruction Type:Provider Instructions for Treatment Patient Instructions Indication:Impaired Fasting Glucose (Renamed from Elevated fasting blood sugar) Start:12-Mar-2015 Instruction Type:Provider Instructions for Treatment Patient Instructions Indication:Impaired Fasting Glucose (Renamed from Elevated fasting blood sugar) Start:11-Nov-2014 Instruction Type:Provider Instructions for Treatment Patient Instructions Indication:Hemorrhoids, unspecified hemorrhoid type Start:24-Aug-2014 Instruction Type:Provider Instructions for Treatment Patient Instructions Indication:GERD (gastroesophageal reflux disease) Start:06-Jul-2014 Instruction Type:Provider Instructions for Treatment Patient Instructions Indication:Chronic obstructive pulmonary disease Start:24-Jun-2013 Instruction Type:Provider Instructions for Treatment [facility] Work Phone: Instructions* Name Dates Details Patient Instructions Indication:Impaired Fasting Glucose (Renamed from Elevated fasting blood sugar) Start:06-Apr-2021 Instruction Type:Provider Instructions for Treatment How to Access Health Informa tion Online using Patient Portal and [employer] Apps Indication:Impaired Fasting Glucose (Renamed from Elevated fasting blood sugar) Start:06-Apr-2021 Instruction Type:Patient Education Patient Instructions Indication:Nonsmoker Start:31-Jan-2021 Instruction Type:Provider Instructions for Treatment How to Access Health Informa tion Online using Patient Portal and [employer] Republican Apps Indication:Nonsmoker Start:31-Jan-2021 Instruction Type:Patient Education How to Access Health Informa tion Online using Patient Portal and [place] Republican Apps Indication:Nonsmoker Start:25-Nov-2020 Instruction Type:Patient Education Patient Instructions Indication:Nonsmoker Start:25-Nov-2020 Instruction Type:Provider Instructions for Treatment How to Access Health Informa tion Online using Patient Portal and [place] Republican Apps Indication:Nonsmoker Start:22-Nov-2020 Instruction Type:Patient Education Patient Instructions Indication:Nonsmoker Start:22-Nov-2020 Instruction Type:Provider Instructions for Treatment Patient Instructions Indication:Nonsmoker Start:17-Nov-2020 Instruction Type:Provider Instructions for Treatment How to Access Health Informa tion Online using Patient Portal and [employer]rd [employer] Apps Indication:Nonsmoker Start:17-Nov-2020 Instruction Type:Patient Education How to access health informa tion online Indication:BMI 28.0-28.9,adult Start:25-Aug-2020 Instruction Type:Patient Education How to access health informa tion online - Detail Indication:BMI 28.0-28.9,adult Start:25-Aug-2020 Instruction Type:Patient Education Patient Instructions Indication:BMI 28.0-28.9,adult Start:25-Aug-2020 Instruction Type:Provider Instructions for Treatment How to access health informa tion online Indication:Nonsmoker Start:12-Nov-2019 Instruction Type:Patient Education How to access health informa tion online Indication:Nonsmoker Start:12-Nov-2019 Instruction Type:Patient Education Patient Instructions Indication:Nonsmoker Start:12-Nov-2019 Instruction Type:Provider Instructions for Treatment How to access health informa tion online Indication:Nonsmoker Start:01-Oct-2018 Instruction Type:Patient Education How to access health informa tion online - Detail Indication:Nonsmoker Start:01-Oct-2018 Instruction Type:Patient Education Patient Instructions Indication:Nonsmoker Start:01-Oct-2018 Instruction Type:Provider Instructions for Treatment How to access health informa tion online Indication:Impaired Fasting Glucose (Renamed from Elevated fasting blood sugar) Start:01-Aug-2017 Instruction Type:Patient Education How to access health informa tion online - Detail Indication:Impaired Fasting Glucose (Renamed from Elevated fasting blood sugar) Start:01-Aug-2017 Instruction Type:Patient Education Patient Instructions Indication:Impaired Fasting Glucose (Renamed from Elevated fasting blood sugar) Start:01-Aug-2017 Instruction Type:Provider Instructions for Treatment How to access health informa tion online Indication:GERD (gastroesophageal reflux disease) Start:27-Mar-2016 Instruction Type:Patient Education How to access health informa tion online - Detail Indication:GERD (gastroesophageal reflux disease) Start:27-Mar-2016 Instruction Type:Patient Education Patient Instructions Indication:GERD (gastroesophageal reflux disease) Start:27-Mar-2016 Instruction Type:Provider Instructions for Treatment How to access health informa tion online Indication:Chronic right shoulder pain Start:17-Nov-2015 Instruction Type:Patient Education How to access health informa tion online - Detail Indication:Chronic right shoulder pain Start:17-Nov-2015 Instruction Type:Patient Education Patient Instructions Indication:Chronic right shoulder pain Start:17-Nov-2015 Instruction Type:Provider Instructions for Treatment Patient Instructions Indication:Impaired Fasting Glucose (Renamed from Elevated fasting blood sugar) Start:12-Mar-2015 Instruction Type:Provider Instructions for Treatment Patient Instructions Indication:Impaired Fasting Glucose (Renamed from Elevated fasting blood sugar) Start:11-Nov-2014 Instruction Type:Provider Instructions for Treatment Patient Instructions Indication:Hemorrhoids, unspecified hemorrhoid type Start:24-Aug-2014 Instruction Type:Provider Instructions for Treatment Patient Instructions Indication:GERD (gastroesophageal reflux disease) Start:06-Jul-2014 Instruction Type:Provider Instructions for Treatment Patient Instructions Indication:Chronic obstructive pulmonary disease Start:24-Jun-2013 Instruction Type:Provider Instructions for Treatment [facility] Work Phone: Instructions* Name Dates Details Patient Instructions Indication:Impaired Fasting Glucose (Renamed from Elevated fasting blood sugar) Start:06-Apr-2021 Instruction Type:Provider Instructions for Treatment How to Access Health Informa tion Online using Patient Portal and [employer]rd [employer] Apps Indication:Impaired Fasting Glucose (Renamed from Elevated fasting blood sugar) Start:06-Apr-2021 Instruction Type:Patient Education Patient Instructions Indication:Nonsmoker Start:31-Jan-2021 Instruction Type:Provider Instructions for Treatment How to Access Health Informa tion Online using Patient Portal and [employer]rd [employer] Apps Indication:Nonsmoker Start:31-Jan-2021 Instruction Type:Patient Education How to Access Health Informa tion Online using Patient Portal and [employer] Apps Indication:Nonsmoker Start:25-Nov-2020 Instruction Type:Patient Education Patient Instructions Indication:Nonsmoker Start:25-Nov-2020 Instruction Type:Provider Instructions for Treatment How to Access Health Informa tion Online using Patient Portal and [employer] Apps Indication:Nonsmoker Start:22-Nov-2020 Instruction Type:Patient Education Patient Instructions Indication:Nonsmoker Start:22-Nov-2020 Instruction Type:Provider Instructions for Treatment Patient Instructions Indication:Nonsmoker Start:17-Nov-2020 Instruction Type:Provider Instructions for Treatment How to Access Health Informa tion Online using Patient Portal and [employer]rd [employer] Apps Indication:Nonsmoker Start:17-Nov-2020 Instruction Type:Patient Education How to access health informa tion online Indication:BMI 28.0-28.9,adult Start:25-Aug-2020 Instruction Type:Patient Education How to access health informa tion online - Detail Indication:BMI 28.0-28.9,adult Start:25-Aug-2020 Instruction Type:Patient Education Patient Instructions Indication:BMI 28.0-28.9,adult Start:25-Aug-2020 Instruction Type:Provider Instructions for Treatment How to access health informa tion online Indication:Nonsmoker Start:12-Nov-2019 Instruction Type:Patient Education How to access health informa tion online Indication:Nonsmoker Start:12-Nov-2019 Instruction Type:Patient Education Patient Instructions Indication:Nonsmoker Start:12-Nov-2019 Instruction Type:Provider Instructions for Treatment How to access health informa tion online Indication:Nonsmoker Start:01-Oct-2018 Instruction Type:Patient Education How to access health informa tion online - Detail Indication:Nonsmoker Start:01-Oct-2018 Instruction Type:Patient Education Patient Instructions Indication:Nonsmoker Start:01-Oct-2018 Instruction Type:Provider Instructions for Treatment How to access health informa tion online Indication:Impaired Fasting Glucose (Renamed from Elevated fasting blood sugar) Start:01-Aug-2017 Instruction Type:Patient Education How to access health informa tion online - Detail Indication:Impaired Fasting Glucose (Renamed from Elevated fasting blood sugar) Start:01-Aug-2017 Instruction Type:Patient Education Patient Instructions Indication:Impaired Fasting Glucose (Renamed from Elevated fasting blood sugar) Start:01-Aug-2017 Instruction Type:Provider Instructions for Treatment How to access health informa tion online Indication:GERD (gastroesophageal reflux disease) Start:27-Mar-2016 Instruction Type:Patient Education How to access health informa tion online - Detail Indication:GERD (gastroesophageal reflux disease) Start:27-Mar-2016 Instruction Type:Patient Education Patient Instructions Indication:GERD (gastroesophageal reflux disease) Start:27-Mar-2016 Instruction Type:Provider Instructions for Treatment How to access health informa tion online Indication:Chronic right shoulder pain Start:17-Nov-2015 Instruction Type:Patient Education How to access health informa tion online - Detail Indication:Chronic right shoulder pain Start:17-Nov-2015 Instruction Type:Patient Education Patient Instructions Indication:Chronic right shoulder pain Start:17-Nov-2015 Instruction Type:Provider Instructions for Treatment Patient Instructions Indication:Impaired Fasting Glucose (Renamed from Elevated fasting blood sugar) Start:12-Mar-2015 Instruction Type:Provider Instructions for Treatment Patient Instructions Indication:Impaired Fasting Glucose (Renamed from Elevated fasting blood sugar) Start:11-Nov-2014 Instruction Type:Provider Instructions for Treatment Patient Instructions Indication:Hemorrhoids, unspecified hemorrhoid type Start:24-Aug-2014 Instruction Type:Provider Instructions for Treatment Patient Instructions Indication:GERD (gastroesophageal reflux disease) Start:06-Jul-2014 Instruction Type:Provider Instructions for Treatment Patient Instructions Indication:Chronic obstructive pulmonary disease Start:24-Jun-2013 Instruction Type:Provider Instructions for Treatment [facility] Work Phone: Instructions* Name Dates Details Patient Instructions Indication:Impaired Fasting Glucose (Renamed from Elevated fasting blood sugar) Start:06-Apr-2021 Instruction Type:Provider Instructions for Treatment How to Access Health Informa tion Online using Patient Portal and [employer]rd [employer] Apps Indication:Impaired Fasting Glucose (Renamed from Elevated fasting blood sugar) Start:06-Apr-2021 Instruction Type:Patient Education Patient Instructions Indication:Nonsmoker Start:31-Jan-2021 Instruction Type:Provider Instructions for Treatment How to Access Health Informa tion Online using Patient Portal and [employer]rd [employer] Apps Indication:Nonsmoker Start:31-Jan-2021 Instruction Type:Patient Education How to Access Health Informa tion Online using Patient Portal and [employer] Apps Indication:Nonsmoker Start:25-Nov-2020 Instruction Type:Patient Education Patient Instructions Indication:Nonsmoker Start:25-Nov-2020 Instruction Type:Provider Instructions for Treatment How to Access Health Informa tion Online using Patient Portal and [employer]rd [employer] Apps Indication:Nonsmoker Start:22-Nov-2020 Instruction Type:Patient Education Patient Instructions Indication:Nonsmoker Start:22-Nov-2020 Instruction Type:Provider Instructions for Treatment Patient Instructions Indication:Nonsmoker Start:17-Nov-2020 Instruction Type:Provider Instructions for Treatment How to Access Health Informa tion Online using Patient Portal and [employer]rd [employer] Apps Indication:Nonsmoker Start:17-Nov-2020 Instruction Type:Patient Education How to access health informa tion online Indication:BMI 28.0-28.9,adult Start:25-Aug-2020 Instruction Type:Patient Education How to access health informa tion online - Detail Indication:BMI 28.0-28.9,adult Start:25-Aug-2020 Instruction Type:Patient Education Patient Instructions Indication:BMI 28.0-28.9,adult Start:25-Aug-2020 Instruction Type:Provider Instructions for Treatment How to access health informa tion online Indication:Nonsmoker Start:12-Nov-2019 Instruction Type:Patient Education How to access health informa tion online Indication:Nonsmoker Start:12-Nov-2019 Instruction Type:Patient Education Patient Instructions Indication:Nonsmoker Start:12-Nov-2019 Instruction Type:Provider Instructions for Treatment How to access health informa tion online Indication:Nonsmoker Start:01-Oct-2018 Instruction Type:Patient Education How to access health informa tion online - Detail Indication:Nonsmoker Start:01-Oct-2018 Instruction Type:Patient Education Patient Instructions Indication:Nonsmoker Start:01-Oct-2018 Instruction Type:Provider Instructions for Treatment How to access health informa tion online Indication:Impaired Fasting Glucose (Renamed from Elevated fasting blood sugar) Start:01-Aug-2017 Instruction Type:Patient Education How to access health informa tion online - Detail Indication:Impaired Fasting Glucose (Renamed from Elevated fasting blood sugar) Start:01-Aug-2017 Instruction Type:Patient Education Patient Instructions Indication:Impaired Fasting Glucose (Renamed from Elevated fasting blood sugar) Start:01-Aug-2017 Instruction Type:Provider Instructions for Treatment How to access health informa tion online Indication:GERD (gastroesophageal reflux disease) Start:27-Mar-2016 Instruction Type:Patient Education How to access health informa tion online - Detail Indication:GERD (gastroesophageal reflux disease) Start:27-Mar-2016 Instruction Type:Patient Education Patient Instructions Indication:GERD (gastroesophageal reflux disease) Start:27-Mar-2016 Instruction Type:Provider Instructions for Treatment How to access health informa tion online Indication:Chronic right shoulder pain Start:17-Nov-2015 Instruction Type:Patient Education How to access health informa tion online - Detail Indication:Chronic right shoulder pain Start:17-Nov-2015 Instruction Type:Patient Education Patient Instructions Indication:Chronic right shoulder pain Start:17-Nov-2015 Instruction Type:Provider Instructions for Treatment Patient Instructions Indication:Impaired Fasting Glucose (Renamed from Elevated fasting blood sugar) Start:12-Mar-2015 Instruction Type:Provider Instructions for Treatment Patient Instructions Indication:Impaired Fasting Glucose (Renamed from Elevated fasting blood sugar) Start:11-Nov-2014 Instruction Type:Provider Instructions for Treatment Patient Instructions Indication:Hemorrhoids, unspecified hemorrhoid type Start:24-Aug-2014 Instruction Type:Provider Instructions for Treatment Patient Instructions Indication:GERD (gastroesophageal reflux disease) Start:06-Jul-2014 Instruction Type:Provider Instructions for Treatment Patient Instructions Indication:Chronic obstructive pulmonary disease Start:24-Jun-2013 Instruction Type:Provider Instructions for Treatment [facility] Work Phone: Instructions* Name Dates Details Patient Instructions Indication:Impaired Fasting Glucose (Renamed from Elevated fasting blood sugar) Start:06-Apr-2021 Instruction Type:Provider Instructions for Treatment How to Access Health Informa tion Online using Patient Portal and [employer] Apps Indication:Impaired Fasting Glucose (Renamed from Elevated fasting blood sugar) Start:06-Apr-2021 Instruction Type:Patient Education Patient Instructions Indication:Nonsmoker Start:31-Jan-2021 Instruction Type:Provider Instructions for Treatment How to Access Health Informa tion Online using Patient Portal and [employer] Apps Indication:Nonsmoker Start:31-Jan-2021 Instruction Type:Patient Education How to Access Health Informa tion Online using Patient Portal and [place] Republican Apps Indication:Nonsmoker Start:25-Nov-2020 Instruction Type:Patient Education Patient Instructions Indication:Nonsmoker Start:25-Nov-2020 Instruction Type:Provider Instructions for Treatment How to Access Health Informa tion Online using Patient Portal and [place] Republican Apps Indication:Nonsmoker Start:22-Nov-2020 Instruction Type:Patient Education Patient Instructions Indication:Nonsmoker Start:22-Nov-2020 Instruction Type:Provider Instructions for Treatment Patient Instructions Indication:Nonsmoker Start:17-Nov-2020 Instruction Type:Provider Instructions for Treatment How to Access Health Informa tion Online using Patient Portal and [employer] Apps Indication:Nonsmoker Start:17-Nov-2020 Instruction Type:Patient Education How to access health informa tion online Indication:BMI 28.0-28.9,adult Start:25-Aug-2020 Instruction Type:Patient Education How to access health informa tion online - Detail Indication:BMI 28.0-28.9,adult Start:25-Aug-2020 Instruction Type:Patient Education Patient Instructions Indication:BMI 28.0-28.9,adult Start:25-Aug-2020 Instruction Type:Provider Instructions for Treatment How to access health informa tion online Indication:Nonsmoker Start:12-Nov-2019 Instruction Type:Patient Education How to access health informa tion online Indication:Nonsmoker Start:12-Nov-2019 Instruction Type:Patient Education Patient Instructions Indication:Nonsmoker Start:12-Nov-2019 Instruction Type:Provider Instructions for Treatment How to access health informa tion online Indication:Nonsmoker Start:01-Oct-2018 Instruction Type:Patient Education How to access health informa tion online - Detail Indication:Nonsmoker Start:01-Oct-2018 Instruction Type:Patient Education Patient Instructions Indication:Nonsmoker Start:01-Oct-2018 Instruction Type:Provider Instructions for Treatment How to access health informa tion online Indication:Impaired Fasting Glucose (Renamed from Elevated fasting blood sugar) Start:01-Aug-2017 Instruction Type:Patient Education How to access health informa tion online - Detail Indication:Impaired Fasting Glucose (Renamed from Elevated fasting blood sugar) Start:01-Aug-2017 Instruction Type:Patient Education Patient Instructions Indication:Impaired Fasting Glucose (Renamed from Elevated fasting blood sugar) Start:01-Aug-2017 Instruction Type:Provider Instructions for Treatment How to access health informa tion online Indication:GERD (gastroesophageal reflux disease) Start:27-Mar-2016 Instruction Type:Patient Education How to access health informa tion online - Detail Indication:GERD (gastroesophageal reflux disease) Start:27-Mar-2016 Instruction Type:Patient Education Patient Instructions Indication:GERD (gastroesophageal reflux disease) Start:27-Mar-2016 Instruction Type:Provider Instructions for Treatment How to access health informa tion online Indication:Chronic right shoulder pain Start:17-Nov-2015 Instruction Type:Patient Education How to access health informa tion online - Detail Indication:Chronic right shoulder pain Start:17-Nov-2015 Instruction Type:Patient Education Patient Instructions Indication:Chronic right shoulder pain Start:17-Nov-2015 Instruction Type:Provider Instructions for Treatment Patient Instructions Indication:Impaired Fasting Glucose (Renamed from Elevated fasting blood sugar) Start:12-Mar-2015 Instruction Type:Provider Instructions for Treatment Patient Instructions Indication:Impaired Fasting Glucose (Renamed from Elevated fasting blood sugar) Start:11-Nov-2014 Instruction Type:Provider Instructions for Treatment Patient Instructions Indication:Hemorrhoids, unspecified hemorrhoid type Start:24-Aug-2014 Instruction Type:Provider Instructions for Treatment Patient Instructions Indication:GERD (gastroesophageal reflux disease) Start:06-Jul-2014 Instruction Type:Provider Instructions for Treatment Patient Instructions Indication:Chronic obstructive pulmonary disease Start:24-Jun-2013 Instruction Type:Provider Instructions for Treatment [facility] Work Phone: Instructions* Name Dates Details Patient Instructions Indication:Impaired Fasting Glucose (Renamed from Elevated fasting blood sugar) Start:06-Apr-2021 Instruction Type:Provider Instructions for Treatment How to Access Health Informa tion Online using Patient Portal and [employer] Apps Indication:Impaired Fasting Glucose (Renamed from Elevated fasting blood sugar) Start:06-Apr-2021 Instruction Type:Patient Education Patient Instructions Indication:Nonsmoker Start:31-Jan-2021 Instruction Type:Provider Instructions for Treatment How to Access Health Informa tion Online using Patient Portal and [employer] Apps Indication:Nonsmoker Start:31-Jan-2021 Instruction Type:Patient Education How to Access Health Informa tion Online using Patient Portal and [employer] Apps Indication:Nonsmoker Start:25-Nov-2020 Instruction Type:Patient Education Patient Instructions Indication:Nonsmoker Start:25-Nov-2020 Instruction Type:Provider Instructions for Treatment How to Access Health Informa tion Online using Patient Portal and [employer] Apps Indication:Nonsmoker Start:22-Nov-2020 Instruction Type:Patient Education Patient Instructions Indication:Nonsmoker Start:22-Nov-2020 Instruction Type:Provider Instructions for Treatment Patient Instructions Indication:Nonsmoker Start:17-Nov-2020 Instruction Type:Provider Instructions for Treatment How to Access Health Informa tion Online using Patient Portal and [employer] Apps Indication:Nonsmoker Start:17-Nov-2020 Instruction Type:Patient Education How to access health informa tion online Indication:BMI 28.0-28.9,adult Start:25-Aug-2020 Instruction Type:Patient Education How to access health informa tion online - Detail Indication:BMI 28.0-28.9,adult Start:25-Aug-2020 Instruction Type:Patient Education Patient Instructions Indication:BMI 28.0-28.9,adult Start:25-Aug-2020 Instruction Type:Provider Instructions for Treatment How to access health informa tion online Indication:Nonsmoker Start:12-Nov-2019 Instruction Type:Patient Education How to access health informa tion online Indication:Nonsmoker Start:12-Nov-2019 Instruction Type:Patient Education Patient Instructions Indication:Nonsmoker Start:12-Nov-2019 Instruction Type:Provider Instructions for Treatment How to access health informa tion online Indication:Nonsmoker Start:01-Oct-2018 Instruction Type:Patient Education How to access health informa tion online - Detail Indication:Nonsmoker Start:01-Oct-2018 Instruction Type:Patient Education Patient Instructions Indication:Nonsmoker Start:01-Oct-2018 Instruction Type:Provider Instructions for Treatment How to access health informa tion online Indication:Impaired Fasting Glucose (Renamed from Elevated fasting blood sugar) Start:01-Aug-2017 Instruction Type:Patient Education How to access health informa tion online - Detail Indication:Impaired Fasting Glucose (Renamed from Elevated fasting blood sugar) Start:01-Aug-2017 Instruction Type:Patient Education Patient Instructions Indication:Impaired Fasting Glucose (Renamed from Elevated fasting blood sugar) Start:01-Aug-2017 Instruction Type:Provider Instructions for Treatment How to access health informa tion online Indication:GERD (gastroesophageal reflux disease) Start:27-Mar-2016 Instruction Type:Patient Education How to access health informa tion online - Detail Indication:GERD (gastroesophageal reflux disease) Start:27-Mar-2016 Instruction Type:Patient Education Patient Instructions Indication:GERD (gastroesophageal reflux disease) Start:27-Mar-2016 Instruction Type:Provider Instructions for Treatment How to access health informa tion online Indication:Chronic right shoulder pain Start:17-Nov-2015 Instruction Type:Patient Education How to access health informa tion online - Detail Indication:Chronic right shoulder pain Start:17-Nov-2015 Instruction Type:Patient Education Patient Instructions Indication:Chronic right shoulder pain Start:17-Nov-2015 Instruction Type:Provider Instructions for Treatment Patient Instructions Indication:Impaired Fasting Glucose (Renamed from Elevated fasting blood sugar) Start:12-Mar-2015 Instruction Type:Provider Instructions for Treatment Patient Instructions Indication:Impaired Fasting Glucose (Renamed from Elevated fasting blood sugar) Start:11-Nov-2014 Instruction Type:Provider Instructions for Treatment Patient Instructions Indication:Hemorrhoids, unspecified hemorrhoid type Start:24-Aug-2014 Instruction Type:Provider Instructions for Treatment Patient Instructions Indication:GERD (gastroesophageal reflux disease) Start:06-Jul-2014 Instruction Type:Provider Instructions for Treatment Patient Instructions Indication:Chronic obstructive pulmonary disease Start:24-Jun-2013 Instruction Type:Provider Instructions for Treatment [facility]; [facility] Work Phone: Instructions* Name Dates Details Patient Instructions Indication:BMI 28.0-28.9,adult Start:23-Jan-2022 Instruction Type:Provider Instructions for Treatment How to Access Health Informa tion Online using Patient Portal and [employer] Apps Indication:BMI 28.0-28.9,adult Start:23-Jan-2022 Instruction Type:Patient Education Patient Instructions Indication:Impaired Fasting Glucose (Renamed from Elevated fasting blood sugar) Start:06-Apr-2021 Instruction Type:Provider Instructions for Treatment How to Access Health Informa tion Online using Patient Portal and [employer] Apps Indication:Impaired Fasting Glucose (Renamed from Elevated fasting blood sugar) Start:06-Apr-2021 Instruction Type:Patient Education Patient Instructions Indication:Nonsmoker Start:31-Jan-2021 Instruction Type:Provider Instructions for Treatment How to Access Health Informa tion Online using Patient Portal and [employer] Apps Indication:Nonsmoker Start:31-Jan-2021 Instruction Type:Patient Education How to Access Health Informa tion Online using Patient Portal and [employer] Apps Indication:Nonsmoker Start:25-Nov-2020 Instruction Type:Patient Education Patient Instructions Indication:Nonsmoker Start:25-Nov-2020 Instruction Type:Provider Instructions for Treatment How to Access Health Informa tion Online using Patient Portal and [employer] Apps Indication:Nonsmoker Start:22-Nov-2020 Instruction Type:Patient Education Patient Instructions Indication:Nonsmoker Start:22-Nov-2020 Instruction Type:Provider Instructions for Treatment Patient Instructions Indication:Nonsmoker Start:17-Nov-2020 Instruction Type:Provider Instructions for Treatment How to Access Health Informa tion Online using Patient Portal and [employer] Apps Indication:Nonsmoker Start:17-Nov-2020 Instruction Type:Patient Education How to access health informa tion online Indication:BMI 28.0-28.9,adult Start:25-Aug-2020 Instruction Type:Patient Education How to access health informa tion online - Detail Indication:BMI 28.0-28.9,adult Start:25-Aug-2020 Instruction Type:Patient Education Patient Instructions Indication:BMI 28.0-28.9,adult Start:25-Aug-2020 Instruction Type:Provider Instructions for Treatment How to access health informa tion online Indication:Nonsmoker Start:12-Nov-2019 Instruction Type:Patient Education How to access health informa tion online Indication:Nonsmoker Start:12-Nov-2019 Instruction Type:Patient Education Patient Instructions Indication:Nonsmoker Start:12-Nov-2019 Instruction Type:Provider Instructions for Treatment How to access health informa tion online Indication:Nonsmoker Start:01-Oct-2018 Instruction Type:Patient Education How to access health informa tion online - Detail Indication:Nonsmoker Start:01-Oct-2018 Instruction Type:Patient Education Patient Instructions Indication:Nonsmoker Start:01-Oct-2018 Instruction Type:Provider Instructions for Treatment How to access health informa tion online Indication:Impaired Fasting Glucose (Renamed from Elevated fasting blood sugar) Start:01-Aug-2017 Instruction Type:Patient Education How to access health informa tion online - Detail Indication:Impaired Fasting Glucose (Renamed from Elevated fasting blood sugar) Start:01-Aug-2017 Instruction Type:Patient Education Patient Instructions Indication:Impaired Fasting Glucose (Renamed from Elevated fasting blood sugar) Start:01-Aug-2017 Instruction Type:Provider Instructions for Treatment How to access health informa tion online Indication:GERD (gastroesophageal reflux disease) Start:27-Mar-2016 Instruction Type:Patient Education How to access health informa tion online - Detail Indication:GERD (gastroesophageal reflux disease) Start:27-Mar-2016 Instruction Type:Patient Education Patient Instructions Indication:GERD (gastroesophageal reflux disease) Start:27-Mar-2016 Instruction Type:Provider Instructions for Treatment How to access health informa tion online Indication:Chronic right shoulder pain Start:17-Nov-2015 Instruction Type:Patient Education How to access health informa tion online - Detail Indication:Chronic right shoulder pain Start:17-Nov-2015 Instruction Type:Patient Education Patient Instructions Indication:Chronic right shoulder pain Start:17-Nov-2015 Instruction Type:Provider Instructions for Treatment Patient Instructions Indication:Impaired Fasting Glucose (Renamed from Elevated fasting blood sugar) Start:12-Mar-2015 Instruction Type:Provider Instructions for Treatment Patient Instructions Indication:Impaired Fasting Glucose (Renamed from Elevated fasting blood sugar) Start:11-Nov-2014 Instruction Type:Provider Instructions for Treatment Patient Instructions Indication:Hemorrhoids, unspecified hemorrhoid type Start:24-Aug-2014 Instruction Type:Provider Instructions for Treatment Patient Instructions Indication:GERD (gastroesophageal reflux disease) Start:06-Jul-2014 Instruction Type:Provider Instructions for Treatment Patient Instructions Indication:Chronic obstructive pulmonary disease Start:24-Jun-2013 Instruction Type:Provider Instructions for Treatment [facility] Work Phone: Instructions* Name Dates Details Patient Instructions Indication:BMI 28.0-28.9,adult Start:23-Jan-2022 Instruction Type:Provider Instructions for Treatment How to Access Health Informa tion Online using Patient Portal and [employer]rd [employer] Apps Indication:BMI 28.0-28.9,adult Start:23-Jan-2022 Instruction Type:Patient Education Patient Instructions Indication:Impaired Fasting Glucose (Renamed from Elevated fasting blood sugar) Start:06-Apr-2021 Instruction Type:Provider Instructions for Treatment How to Access Health Informa tion Online using Patient Portal and [employer] Apps Indication:Impaired Fasting Glucose (Renamed from Elevated fasting blood sugar) Start:06-Apr-2021 Instruction Type:Patient Education Patient Instructions Indication:Nonsmoker Start:31-Jan-2021 Instruction Type:Provider Instructions for Treatment How to Access Health Informa tion Online using Patient Portal and [employer]rd [employer] Apps Indication:Nonsmoker Start:31-Jan-2021 Instruction Type:Patient Education How to Access Health Informa tion Online using Patient Portal and [employer] Apps Indication:Nonsmoker Start:25-Nov-2020 Instruction Type:Patient Education Patient Instructions Indication:Nonsmoker Start:25-Nov-2020 Instruction Type:Provider Instructions for Treatment How to Access Health Informa tion Online using Patient Portal and [employer] Apps Indication:Nonsmoker Start:22-Nov-2020 Instruction Type:Patient Education Patient Instructions Indication:Nonsmoker Start:22-Nov-2020 Instruction Type:Provider Instructions for Treatment Patient Instructions Indication:Nonsmoker Start:17-Nov-2020 Instruction Type:Provider Instructions for Treatment How to Access Health Informa tion Online using Patient Portal and [employer] Apps Indication:Nonsmoker Start:17-Nov-2020 Instruction Type:Patient Education How to access health informa tion online Indication:BMI 28.0-28.9,adult Start:25-Aug-2020 Instruction Type:Patient Education How to access health informa tion online - Detail Indication:BMI 28.0-28.9,adult Start:25-Aug-2020 Instruction Type:Patient Education Patient Instructions Indication:BMI 28.0-28.9,adult Start:25-Aug-2020 Instruction Type:Provider Instructions for Treatment How to access health informa tion online Indication:Nonsmoker Start:12-Nov-2019 Instruction Type:Patient Education How to access health informa tion online Indication:Nonsmoker Start:12-Nov-2019 Instruction Type:Patient Education Patient Instructions Indication:Nonsmoker Start:12-Nov-2019 Instruction Type:Provider Instructions for Treatment How to access health informa tion online Indication:Nonsmoker Start:01-Oct-2018 Instruction Type:Patient Education How to access health informa tion online - Detail Indication:Nonsmoker Start:01-Oct-2018 Instruction Type:Patient Education Patient Instructions Indication:Nonsmoker Start:01-Oct-2018 Instruction Type:Provider Instructions for Treatment How to access health informa tion online Indication:Impaired Fasting Glucose (Renamed from Elevated fasting blood sugar) Start:01-Aug-2017 Instruction Type:Patient Education How to access health informa tion online - Detail Indication:Impaired Fasting Glucose (Renamed from Elevated fasting blood sugar) Start:01-Aug-2017 Instruction Type:Patient Education Patient Instructions Indication:Impaired Fasting Glucose (Renamed from Elevated fasting blood sugar) Start:01-Aug-2017 Instruction Type:Provider Instructions for Treatment How to access health informa tion online Indication:GERD (gastroesophageal reflux disease) Start:27-Mar-2016 Instruction Type:Patient Education How to access health informa tion online - Detail Indication:GERD (gastroesophageal reflux disease) Start:27-Mar-2016 Instruction Type:Patient Education Patient Instructions Indication:GERD (gastroesophageal reflux disease) Start:27-Mar-2016 Instruction Type:Provider Instructions for Treatment How to access health informa tion online Indication:Chronic right shoulder pain Start:17-Nov-2015 Instruction Type:Patient Education How to access health informa tion online - Detail Indication:Chronic right shoulder pain Start:17-Nov-2015 Instruction Type:Patient Education Patient Instructions Indication:Chronic right shoulder pain Start:17-Nov-2015 Instruction Type:Provider Instructions for Treatment Patient Instructions Indication:Impaired Fasting Glucose (Renamed from Elevated fasting blood sugar) Start:12-Mar-2015 Instruction Type:Provider Instructions for Treatment Patient Instructions Indication:Impaired Fasting Glucose (Renamed from Elevated fasting blood sugar) Start:11-Nov-2014 Instruction Type:Provider Instructions for Treatment Patient Instructions Indication:Hemorrhoids, unspecified hemorrhoid type Start:24-Aug-2014 Instruction Type:Provider Instructions for Treatment Patient Instructions Indication:GERD (gastroesophageal reflux disease) Start:06-Jul-2014 Instruction Type:Provider Instructions for Treatment Patient Instructions Indication:Chronic obstructive pulmonary disease Start:24-Jun-2013 Instruction Type:Provider Instructions for Treatment [facility] Work Phone: Instructions* Name Dates Details Patient Instructions Indication:BMI 28.0-28.9,adult Start:23-Jan-2022 Instruction Type:Provider Instructions for Treatment How to Access Health Informa tion Online using Patient Portal and [employer] Apps Indication:BMI 28.0-28.9,adult Start:23-Jan-2022 Instruction Type:Patient Education Patient Instructions Indication:Impaired Fasting Glucose (Renamed from Elevated fasting blood sugar) Start:06-Apr-2021 Instruction Type:Provider Instructions for Treatment How to Access Health Informa tion Online using Patient Portal and [employer] Apps Indication:Impaired Fasting Glucose (Renamed from Elevated fasting blood sugar) Start:06-Apr-2021 Instruction Type:Patient Education Patient Instructions Indication:Nonsmoker Start:31-Jan-2021 Instruction Type:Provider Instructions for Treatment How to Access Health Informa tion Online using Patient Portal and [employer] Apps Indication:Nonsmoker Start:31-Jan-2021 Instruction Type:Patient Education How to Access Health Informa tion Online using Patient Portal and [employer] Apps Indication:Nonsmoker Start:25-Nov-2020 Instruction Type:Patient Education Patient Instructions Indication:Nonsmoker Start:25-Nov-2020 Instruction Type:Provider Instructions for Treatment How to Access Health Informa tion Online using Patient Portal and [employer] Apps Indication:Nonsmoker Start:22-Nov-2020 Instruction Type:Patient Education Patient Instructions Indication:Nonsmoker Start:22-Nov-2020 Instruction Type:Provider Instructions for Treatment Patient Instructions Indication:Nonsmoker Start:17-Nov-2020 Instruction Type:Provider Instructions for Treatment How to Access Health Informa tion Online using Patient Portal and [employer] Apps Indication:Nonsmoker Start:17-Nov-2020 Instruction Type:Patient Education How to access health informa tion online Indication:BMI 28.0-28.9,adult Start:25-Aug-2020 Instruction Type:Patient Education How to access health informa tion online - Detail Indication:BMI 28.0-28.9,adult Start:25-Aug-2020 Instruction Type:Patient Education Patient Instructions Indication:BMI 28.0-28.9,adult Start:25-Aug-2020 Instruction Type:Provider Instructions for Treatment How to access health informa tion online Indication:Nonsmoker Start:12-Nov-2019 Instruction Type:Patient Education How to access health informa tion online Indication:Nonsmoker Start:12-Nov-2019 Instruction Type:Patient Education Patient Instructions Indication:Nonsmoker Start:12-Nov-2019 Instruction Type:Provider Instructions for Treatment How to access health informa tion online Indication:Nonsmoker Start:01-Oct-2018 Instruction Type:Patient Education How to access health informa tion online - Detail Indication:Nonsmoker Start:01-Oct-2018 Instruction Type:Patient Education Patient Instructions Indication:Nonsmoker Start:01-Oct-2018 Instruction Type:Provider Instructions for Treatment How to access health informa tion online Indication:Impaired Fasting Glucose (Renamed from Elevated fasting blood sugar) Start:01-Aug-2017 Instruction Type:Patient Education How to access health informa tion online - Detail Indication:Impaired Fasting Glucose (Renamed from Elevated fasting blood sugar) Start:01-Aug-2017 Instruction Type:Patient Education Patient Instructions Indication:Impaired Fasting Glucose (Renamed from Elevated fasting blood sugar) Start:01-Aug-2017 Instruction Type:Provider Instructions for Treatment How to access health informa tion online Indication:GERD (gastroesophageal reflux disease) Start:27-Mar-2016 Instruction Type:Patient Education How to access health informa tion online - Detail Indication:GERD (gastroesophageal reflux disease) Start:27-Mar-2016 Instruction Type:Patient Education Patient Instructions Indication:GERD (gastroesophageal reflux disease) Start:27-Mar-2016 Instruction Type:Provider Instructions for Treatment How to access health informa tion online Indication:Chronic right shoulder pain Start:17-Nov-2015 Instruction Type:Patient Education How to access health informa tion online - Detail Indication:Chronic right shoulder pain Start:17-Nov-2015 Instruction Type:Patient Education Patient Instructions Indication:Chronic right shoulder pain Start:17-Nov-2015 Instruction Type:Provider Instructions for Treatment Patient Instructions Indication:Impaired Fasting Glucose (Renamed from Elevated fasting blood sugar) Start:12-Mar-2015 Instruction Type:Provider Instructions for Treatment Patient Instructions Indication:Impaired Fasting Glucose (Renamed from Elevated fasting blood sugar) Start:11-Nov-2014 Instruction Type:Provider Instructions for Treatment Patient Instructions Indication:Hemorrhoids, unspecified hemorrhoid type Start:24-Aug-2014 Instruction Type:Provider Instructions for Treatment Patient Instructions Indication:GERD (gastroesophageal reflux disease) Start:06-Jul-2014 Instruction Type:Provider Instructions for Treatment Patient Instructions Indication:Chronic obstructive pulmonary disease Start:24-Jun-2013 Instruction Type:Provider Instructions for Treatment [facility] Work Phone: Instructions* Name Dates Details Patient Instructions Indication:BMI 28.0-28.9,adult Start:23-Jan-2022 Instruction Type:Provider Instructions for Treatment How to Access Health Informa tion Online using Patient Portal and [employer] Apps Indication:BMI 28.0-28.9,adult Start:23-Jan-2022 Instruction Type:Patient Education Patient Instructions Indication:Impaired Fasting Glucose (Renamed from Elevated fasting blood sugar) Start:06-Apr-2021 Instruction Type:Provider Instructions for Treatment How to Access Health Informa tion Online using Patient Portal and [employer] Apps Indication:Impaired Fasting Glucose (Renamed from Elevated fasting blood sugar) Start:06-Apr-2021 Instruction Type:Patient Education Patient Instructions Indication:Nonsmoker Start:31-Jan-2021 Instruction Type:Provider Instructions for Treatment How to Access Health Informa tion Online using Patient Portal and [employer] Apps Indication:Nonsmoker Start:31-Jan-2021 Instruction Type:Patient Education How to Access Health Informa tion Online using Patient Portal and [employer] Apps Indication:Nonsmoker Start:25-Nov-2020 Instruction Type:Patient Education Patient Instructions Indication:Nonsmoker Start:25-Nov-2020 Instruction Type:Provider Instructions for Treatment How to Access Health Informa tion Online using Patient Portal and [employer] Apps Indication:Nonsmoker Start:22-Nov-2020 Instruction Type:Patient Education Patient Instructions Indication:Nonsmoker Start:22-Nov-2020 Instruction Type:Provider Instructions for Treatment Patient Instructions Indication:Nonsmoker Start:17-Nov-2020 Instruction Type:Provider Instructions for Treatment How to Access Health Informa tion Online using Patient Portal and [employer] Apps Indication:Nonsmoker Start:17-Nov-2020 Instruction Type:Patient Education How to access health informa tion online Indication:BMI 28.0-28.9,adult Start:25-Aug-2020 Instruction Type:Patient Education How to access health informa tion online - Detail Indication:BMI 28.0-28.9,adult Start:25-Aug-2020 Instruction Type:Patient Education Patient Instructions Indication:BMI 28.0-28.9,adult Start:25-Aug-2020 Instruction Type:Provider Instructions for Treatment How to access health informa tion online Indication:Nonsmoker Start:12-Nov-2019 Instruction Type:Patient Education How to access health informa tion online Indication:Nonsmoker Start:12-Nov-2019 Instruction Type:Patient Education Patient Instructions Indication:Nonsmoker Start:12-Nov-2019 Instruction Type:Provider Instructions for Treatment How to access health informa tion online Indication:Nonsmoker Start:01-Oct-2018 Instruction Type:Patient Education How to access health informa tion online - Detail Indication:Nonsmoker Start:01-Oct-2018 Instruction Type:Patient Education Patient Instructions Indication:Nonsmoker Start:01-Oct-2018 Instruction Type:Provider Instructions for Treatment How to access health informa tion online Indication:Impaired Fasting Glucose (Renamed from Elevated fasting blood sugar) Start:01-Aug-2017 Instruction Type:Patient Education How to access health informa tion online - Detail Indication:Impaired Fasting Glucose (Renamed from Elevated fasting blood sugar) Start:01-Aug-2017 Instruction Type:Patient Education Patient Instructions Indication:Impaired Fasting Glucose (Renamed from Elevated fasting blood sugar) Start:01-Aug-2017 Instruction Type:Provider Instructions for Treatment How to access health informa tion online Indication:GERD (gastroesophageal reflux disease) Start:27-Mar-2016 Instruction Type:Patient Education How to access health informa tion online - Detail Indication:GERD (gastroesophageal reflux disease) Start:27-Mar-2016 Instruction Type:Patient Education Patient Instructions Indication:GERD (gastroesophageal reflux disease) Start:27-Mar-2016 Instruction Type:Provider Instructions for Treatment How to access health informa tion online Indication:Chronic right shoulder pain Start:17-Nov-2015 Instruction Type:Patient Education How to access health informa tion online - Detail Indication:Chronic right shoulder pain Start:17-Nov-2015 Instruction Type:Patient Education Patient Instructions Indication:Chronic right shoulder pain Start:17-Nov-2015 Instruction Type:Provider Instructions for Treatment Patient Instructions Indication:Impaired Fasting Glucose (Renamed from Elevated fasting blood sugar) Start:12-Mar-2015 Instruction Type:Provider Instructions for Treatment Patient Instructions Indication:Impaired Fasting Glucose (Renamed from Elevated fasting blood sugar) Start:11-Nov-2014 Instruction Type:Provider Instructions for Treatment Patient Instructions Indication:Hemorrhoids, unspecified hemorrhoid type Start:24-Aug-2014 Instruction Type:Provider Instructions for Treatment Patient Instructions Indication:GERD (gastroesophageal reflux disease) Start:06-Jul-2014 Instruction Type:Provider Instructions for Treatment Patient Instructions Indication:Chronic obstructive pulmonary disease Start:24-Jun-2013 Instruction Type:Provider Instructions for Treatment [facility] Work Phone: Instructions* Name Dates Details Patient Instructions Indication:BMI 28.0-28.9,adult Start:23-Jan-2022 Instruction Type:Provider Instructions for Treatment How to Access Health Informa tion Online using Patient Portal and [employer] Apps Indication:BMI 28.0-28.9,adult Start:23-Jan-2022 Instruction Type:Patient Education Patient Instructions Indication:Impaired Fasting Glucose (Renamed from Elevated fasting blood sugar) Start:06-Apr-2021 Instruction Type:Provider Instructions for Treatment How to Access Health Informa tion Online using Patient Portal and [employer] Apps Indication:Impaired Fasting Glucose (Renamed from Elevated fasting blood sugar) Start:06-Apr-2021 Instruction Type:Patient Education Patient Instructions Indication:Nonsmoker Start:31-Jan-2021 Instruction Type:Provider Instructions for Treatment How to Access Health Informa tion Online using Patient Portal and [employer] Apps Indication:Nonsmoker Start:31-Jan-2021 Instruction Type:Patient Education How to Access Health Informa tion Online using Patient Portal and [employer] Apps Indication:Nonsmoker Start:25-Nov-2020 Instruction Type:Patient Education Patient Instructions Indication:Nonsmoker Start:25-Nov-2020 Instruction Type:Provider Instructions for Treatment How to Access Health Informa tion Online using Patient Portal and [employer] Apps Indication:Nonsmoker Start:22-Nov-2020 Instruction Type:Patient Education Patient Instructions Indication:Nonsmoker Start:22-Nov-2020 Instruction Type:Provider Instructions for Treatment Patient Instructions Indication:Nonsmoker Start:17-Nov-2020 Instruction Type:Provider Instructions for Treatment How to Access Health Informa tion Online using Patient Portal and [employer] Apps Indication:Nonsmoker Start:17-Nov-2020 Instruction Type:Patient Education How to access health informa tion online Indication:BMI 28.0-28.9,adult Start:25-Aug-2020 Instruction Type:Patient Education How to access health informa tion online - Detail Indication:BMI 28.0-28.9,adult Start:25-Aug-2020 Instruction Type:Patient Education Patient Instructions Indication:BMI 28.0-28.9,adult Start:25-Aug-2020 Instruction Type:Provider Instructions for Treatment How to access health informa tion online Indication:Nonsmoker Start:12-Nov-2019 Instruction Type:Patient Education How to access health informa tion online Indication:Nonsmoker Start:12-Nov-2019 Instruction Type:Patient Education Patient Instructions Indication:Nonsmoker Start:12-Nov-2019 Instruction Type:Provider Instructions for Treatment How to access health informa tion online Indication:Nonsmoker Start:01-Oct-2018 Instruction Type:Patient Education How to access health informa tion online - Detail Indication:Nonsmoker Start:01-Oct-2018 Instruction Type:Patient Education Patient Instructions Indication:Nonsmoker Start:01-Oct-2018 Instruction Type:Provider Instructions for Treatment How to access health informa tion online Indication:Impaired Fasting Glucose (Renamed from Elevated fasting blood sugar) Start:01-Aug-2017 Instruction Type:Patient Education How to access health informa tion online - Detail Indication:Impaired Fasting Glucose (Renamed from Elevated fasting blood sugar) Start:01-Aug-2017 Instruction Type:Patient Education Patient Instructions Indication:Impaired Fasting Glucose (Renamed from Elevated fasting blood sugar) Start:01-Aug-2017 Instruction Type:Provider Instructions for Treatment How to access health informa tion online Indication:GERD (gastroesophageal reflux disease) Start:27-Mar-2016 Instruction Type:Patient Education How to access health informa tion online - Detail Indication:GERD (gastroesophageal reflux disease) Start:27-Mar-2016 Instruction Type:Patient Education Patient Instructions Indication:GERD (gastroesophageal reflux disease) Start:27-Mar-2016 Instruction Type:Provider Instructions for Treatment How to access health informa tion online Indication:Chronic right shoulder pain Start:17-Nov-2015 Instruction Type:Patient Education How to access health informa tion online - Detail Indication:Chronic right shoulder pain Start:17-Nov-2015 Instruction Type:Patient Education Patient Instructions Indication:Chronic right shoulder pain Start:17-Nov-2015 Instruction Type:Provider Instructions for Treatment Patient Instructions Indication:Impaired Fasting Glucose (Renamed from Elevated fasting blood sugar) Start:12-Mar-2015 Instruction Type:Provider Instructions for Treatment Patient Instructions Indication:Impaired Fasting Glucose (Renamed from Elevated fasting blood sugar) Start:11-Nov-2014 Instruction Type:Provider Instructions for Treatment Patient Instructions Indication:Hemorrhoids, unspecified hemorrhoid type Start:24-Aug-2014 Instruction Type:Provider Instructions for Treatment Patient Instructions Indication:GERD (gastroesophageal reflux disease) Start:06-Jul-2014 Instruction Type:Provider Instructions for Treatment Patient Instructions Indication:Chronic obstructive pulmonary disease Start:24-Jun-2013 Instruction Type:Provider Instructions for Treatment [facility] Work Phone: Instructions* Name Dates Details Patient Instructions Indication:BMI 28.0-28.9,adult Start:29-Jan-2023 Instruction Type:Provider Instructions for Treatment How to Access Health Informa tion Online using Patient Portal and [employer] Apps Indication:BMI 28.0-28.9,adult Start:29-Jan-2023 Instruction Type:Patient Education Patient Instructions Indication:BMI 28.0-28.9,adult Start:23-Jan-2022 Instruction Type:Provider Instructions for Treatment How to Access Health Informa tion Online using Patient Portal and [employer] Apps Indication:BMI 28.0-28.9,adult Start:23-Jan-2022 Instruction Type:Patient Education Patient Instructions Indication:Impaired Fasting Glucose (Renamed from Elevated fasting blood sugar) Start:06-Apr-2021 Instruction Type:Provider Instructions for Treatment How to Access Health Informa tion Online using Patient Portal and [employer] Apps Indication:Impaired Fasting Glucose (Renamed from Elevated fasting blood sugar) Start:06-Apr-2021 Instruction Type:Patient Education Patient Instructions Indication:Nonsmoker Start:31-Jan-2021 Instruction Type:Provider Instructions for Treatment How to Access Health Informa tion Online using Patient Portal and [employer] Apps Indication:Nonsmoker Start:31-Jan-2021 Instruction Type:Patient Education How to Access Health Informa tion Online using Patient Portal and [employer] Apps Indication:Nonsmoker Start:25-Nov-2020 Instruction Type:Patient Education Patient Instructions Indication:Nonsmoker Start:25-Nov-2020 Instruction Type:Provider Instructions for Treatment How to Access Health Informa tion Online using Patient Portal and [employer] Apps Indication:Nonsmoker Start:22-Nov-2020 Instruction Type:Patient Education Patient Instructions Indication:Nonsmoker Start:22-Nov-2020 Instruction Type:Provider Instructions for Treatment Patient Instructions Indication:Nonsmoker Start:17-Nov-2020 Instruction Type:Provider Instructions for Treatment How to Access Health Informa tion Online using Patient Portal and [employer] Apps Indication:Nonsmoker Start:17-Nov-2020 Instruction Type:Patient Education How to access health informa tion online Indication:BMI 28.0-28.9,adult Start:25-Aug-2020 Instruction Type:Patient Education How to access health informa tion online - Detail Indication:BMI 28.0-28.9,adult Start:25-Aug-2020 Instruction Type:Patient Education Patient Instructions Indication:BMI 28.0-28.9,adult Start:25-Aug-2020 Instruction Type:Provider Instructions for Treatment How to access health informa tion online Indication:Nonsmoker Start:12-Nov-2019 Instruction Type:Patient Education How to access health informa tion online Indication:Nonsmoker Start:12-Nov-2019 Instruction Type:Patient Education Patient Instructions Indication:Nonsmoker Start:12-Nov-2019 Instruction Type:Provider Instructions for Treatment How to access health informa tion online Indication:Nonsmoker Start:01-Oct-2018 Instruction Type:Patient Education How to access health informa tion online - Detail Indication:Nonsmoker Start:01-Oct-2018 Instruction Type:Patient Education Patient Instructions Indication:Nonsmoker Start:01-Oct-2018 Instruction Type:Provider Instructions for Treatment How to access health informa tion online Indication:Impaired Fasting Glucose (Renamed from Elevated fasting blood sugar) Start:01-Aug-2017 Instruction Type:Patient Education How to access health informa tion online - Detail Indication:Impaired Fasting Glucose (Renamed from Elevated fasting blood sugar) Start:01-Aug-2017 Instruction Type:Patient Education Patient Instructions Indication:Impaired Fasting Glucose (Renamed from Elevated fasting blood sugar) Start:01-Aug-2017 Instruction Type:Provider Instructions for Treatment How to access health informa tion online Indication:GERD (gastroesophageal reflux disease) Start:27-Mar-2016 Instruction Type:Patient Education How to access health informa tion online - Detail Indication:GERD (gastroesophageal reflux disease) Start:27-Mar-2016 Instruction Type:Patient Education Patient Instructions Indication:GERD (gastroesophageal reflux disease) Start:27-Mar-2016 Instruction Type:Provider Instructions for Treatment How to access health informa tion online Indication:Chronic right shoulder pain Start:17-Nov-2015 Instruction Type:Patient Education How to access health informa tion online - Detail Indication:Chronic right shoulder pain Start:17-Nov-2015 Instruction Type:Patient Education Patient Instructions Indication:Chronic right shoulder pain Start:17-Nov-2015 Instruction Type:Provider Instructions for Treatment Patient Instructions Indication:Impaired Fasting Glucose (Renamed from Elevated fasting blood sugar) Start:12-Mar-2015 Instruction Type:Provider Instructions for Treatment Patient Instructions Indication:Impaired Fasting Glucose (Renamed from Elevated fasting blood sugar) Start:11-Nov-2014 Instruction Type:Provider Instructions for Treatment Patient Instructions Indication:Hemorrhoids, unspecified hemorrhoid type Start:24-Aug-2014 Instruction Type:Provider Instructions for Treatment Patient Instructions Indication:GERD (gastroesophageal reflux disease) Start:06-Jul-2014 Instruction Type:Provider Instructions for Treatment Patient Instructions Indication:Chronic obstructive pulmonary disease Start:24-Jun-2013 Instruction Type:Provider Instructions for Treatment [facility] Work Phone: Instructions* Name Dates Details Patient Instructions Indication:BMI 28.0-28.9,adult Start:29-Jan-2023 Instruction Type:Provider Instructions for Treatment How to Access Health Informa tion Online using Patient Portal and [employer]rd [employer] Apps Indication:BMI 28.0-28.9,adult Start:29-Jan-2023 Instruction Type:Patient Education Patient Instructions Indication:BMI 28.0-28.9,adult Start:23-Jan-2022 Instruction Type:Provider Instructions for Treatment How to Access Health Informa tion Online using Patient Portal and 3rd [employer] Apps Indication:BMI 28.0-28.9,adult Start:23-Jan-2022 Instruction Type:Patient Education Patient Instructions Indication:Impaired Fasting Glucose (Renamed from Elevated fasting blood sugar) Start:06-Apr-2021 Instruction Type:Provider Instructions for Treatment How to Access Health Informa tion Online using Patient Portal and [employer]rd [employer] Apps Indication:Impaired Fasting Glucose (Renamed from Elevated fasting blood sugar) Start:06-Apr-2021 Instruction Type:Patient Education Patient Instructions Indication:Nonsmoker Start:31-Jan-2021 Instruction Type:Provider Instructions for Treatment How to Access Health Informa tion Online using Patient Portal and [employer]rd [employer] Apps Indication:Nonsmoker Start:31-Jan-2021 Instruction Type:Patient Education How to Access Health Informa tion Online using Patient Portal and [employer]rd [employer] Apps Indication:Nonsmoker Start:25-Nov-2020 Instruction Type:Patient Education Patient Instructions Indication:Nonsmoker Start:25-Nov-2020 Instruction Type:Provider Instructions for Treatment How to Access Health Informa tion Online using Patient Portal and [employer]rd [employer] Apps Indication:Nonsmoker Start:22-Nov-2020 Instruction Type:Patient Education Patient Instructions Indication:Nonsmoker Start:22-Nov-2020 Instruction Type:Provider Instructions for Treatment Patient Instructions Indication:Nonsmoker Start:17-Nov-2020 Instruction Type:Provider Instructions for Treatment How to Access Health Informa tion Online using Patient Portal and [employer]rd [employer] Apps Indication:Nonsmoker Start:17-Nov-2020 Instruction Type:Patient Education How to access health informa tion online Indication:BMI 28.0-28.9,adult Start:25-Aug-2020 Instruction Type:Patient Education How to access health informa tion online - Detail Indication:BMI 28.0-28.9,adult Start:25-Aug-2020 Instruction Type:Patient Education Patient Instructions Indication:BMI 28.0-28.9,adult Start:25-Aug-2020 Instruction Type:Provider Instructions for Treatment How to access health informa tion online Indication:Nonsmoker Start:12-Nov-2019 Instruction Type:Patient Education How to access health informa tion online Indication:Nonsmoker Start:12-Nov-2019 Instruction Type:Patient Education Patient Instructions Indication:Nonsmoker Start:12-Nov-2019 Instruction Type:Provider Instructions for Treatment How to access health informa tion online Indication:Nonsmoker Start:01-Oct-2018 Instruction Type:Patient Education How to access health informa tion online - Detail Indication:Nonsmoker Start:01-Oct-2018 Instruction Type:Patient Education Patient Instructions Indication:Nonsmoker Start:01-Oct-2018 Instruction Type:Provider Instructions for Treatment How to access health informa tion online Indication:Impaired Fasting Glucose (Renamed from Elevated fasting blood sugar) Start:01-Aug-2017 Instruction Type:Patient Education How to access health informa tion online - Detail Indication:Impaired Fasting Glucose (Renamed from Elevated fasting blood sugar) Start:01-Aug-2017 Instruction Type:Patient Education Patient Instructions Indication:Impaired Fasting Glucose (Renamed from Elevated fasting blood sugar) Start:01-Aug-2017 Instruction Type:Provider Instructions for Treatment How to access health informa tion online Indication:GERD (gastroesophageal reflux disease) Start:27-Mar-2016 Instruction Type:Patient Education How to access health informa tion online - Detail Indication:GERD (gastroesophageal reflux disease) Start:27-Mar-2016 Instruction Type:Patient Education Patient Instructions Indication:GERD (gastroesophageal reflux disease) Start:27-Mar-2016 Instruction Type:Provider Instructions for Treatment How to access health informa tion online Indication:Chronic right shoulder pain Start:17-Nov-2015 Instruction Type:Patient Education How to access health informa tion online - Detail Indication:Chronic right shoulder pain Start:17-Nov-2015 Instruction Type:Patient Education Patient Instructions Indication:Chronic right shoulder pain Start:17-Nov-2015 Instruction Type:Provider Instructions for Treatment Patient Instructions Indication:Impaired Fasting Glucose (Renamed from Elevated fasting blood sugar) Start:12-Mar-2015 Instruction Type:Provider Instructions for Treatment Patient Instructions Indication:Impaired Fasting Glucose (Renamed from Elevated fasting blood sugar) Start:11-Nov-2014 Instruction Type:Provider Instructions for Treatment Patient Instructions Indication:Hemorrhoids, unspecified hemorrhoid type Start:24-Aug-2014 Instruction Type:Provider Instructions for Treatment Patient Instructions Indication:GERD (gastroesophageal reflux disease) Start:06-Jul-2014 Instruction Type:Provider Instructions for Treatment Patient Instructions Indication:Chronic obstructive pulmonary disease Start:24-Jun-2013 Instruction Type:Provider Instructions for Treatment [facility] Work Phone: Instructions* Name Dates Details Patient Instructions Indication:BMI 28.0-28.9,adult Start:29-Jan-2023 Instruction Type:Provider Instructions for Treatment How to Access Health Informa tion Online using Patient Portal and [employer]rd [employer] Apps Indication:BMI 28.0-28.9,adult Start:29-Jan-2023 Instruction Type:Patient Education Patient Instructions Indication:BMI 28.0-28.9,adult Start:23-Jan-2022 Instruction Type:Provider Instructions for Treatment How to Access Health Informa tion Online using Patient Portal and [employer]rd [employer] Apps Indication:BMI 28.0-28.9,adult Start:23-Jan-2022 Instruction Type:Patient Education Patient Instructions Indication:Impaired Fasting Glucose (Renamed from Elevated fasting blood sugar) Start:06-Apr-2021 Instruction Type:Provider Instructions for Treatment How to Access Health Informa tion Online using Patient Portal and [employer]rd [employer] Apps Indication:Impaired Fasting Glucose (Renamed from Elevated fasting blood sugar) Start:06-Apr-2021 Instruction Type:Patient Education Patient Instructions Indication:Nonsmoker Start:31-Jan-2021 Instruction Type:Provider Instructions for Treatment How to Access Health Informa tion Online using Patient Portal and [employer]rd [employer] Apps Indication:Nonsmoker Start:31-Jan-2021 Instruction Type:Patient Education How to Access Health Informa tion Online using Patient Portal and [employer]rd [employer] Apps Indication:Nonsmoker Start:25-Nov-2020 Instruction Type:Patient Education Patient Instructions Indication:Nonsmoker Start:25-Nov-2020 Instruction Type:Provider Instructions for Treatment How to Access Health Informa tion Online using Patient Portal and [employer]rd [employer] Apps Indication:Nonsmoker Start:22-Nov-2020 Instruction Type:Patient Education Patient Instructions Indication:Nonsmoker Start:22-Nov-2020 Instruction Type:Provider Instructions for Treatment Patient Instructions Indication:Nonsmoker Start:17-Nov-2020 Instruction Type:Provider Instructions for Treatment How to Access Health Informa tion Online using Patient Portal and [employer]rd [employer] Apps Indication:Nonsmoker Start:17-Nov-2020 Instruction Type:Patient Education How to access health informa tion online Indication:BMI 28.0-28.9,adult Start:25-Aug-2020 Instruction Type:Patient Education How to access health informa tion online - Detail Indication:BMI 28.0-28.9,adult Start:25-Aug-2020 Instruction Type:Patient Education Patient Instructions Indication:BMI 28.0-28.9,adult Start:25-Aug-2020 Instruction Type:Provider Instructions for Treatment How to access health informa tion online Indication:Nonsmoker Start:12-Nov-2019 Instruction Type:Patient Education How to access health informa tion online Indication:Nonsmoker Start:12-Nov-2019 Instruction Type:Patient Education Patient Instructions Indication:Nonsmoker Start:12-Nov-2019 Instruction Type:Provider Instructions for Treatment How to access health informa tion online Indication:Nonsmoker Start:01-Oct-2018 Instruction Type:Patient Education How to access health informa tion online - Detail Indication:Nonsmoker Start:01-Oct-2018 Instruction Type:Patient Education Patient Instructions Indication:Nonsmoker Start:01-Oct-2018 Instruction Type:Provider Instructions for Treatment How to access health informa tion online Indication:Impaired Fasting Glucose (Renamed from Elevated fasting blood sugar) Start:01-Aug-2017 Instruction Type:Patient Education How to access health informa tion online - Detail Indication:Impaired Fasting Glucose (Renamed from Elevated fasting blood sugar) Start:01-Aug-2017 Instruction Type:Patient Education Patient Instructions Indication:Impaired Fasting Glucose (Renamed from Elevated fasting blood sugar) Start:01-Aug-2017 Instruction Type:Provider Instructions for Treatment How to access health informa tion online Indication:GERD (gastroesophageal reflux disease) Start:27-Mar-2016 Instruction Type:Patient Education How to access health informa tion online - Detail Indication:GERD (gastroesophageal reflux disease) Start:27-Mar-2016 Instruction Type:Patient Education Patient Instructions Indication:GERD (gastroesophageal reflux disease) Start:27-Mar-2016 Instruction Type:Provider Instructions for Treatment How to access health informa tion online Indication:Chronic right shoulder pain Start:17-Nov-2015 Instruction Type:Patient Education How to access health informa tion online - Detail Indication:Chronic right shoulder pain Start:17-Nov-2015 Instruction Type:Patient Education Patient Instructions Indication:Chronic right shoulder pain Start:17-Nov-2015 Instruction Type:Provider Instructions for Treatment Patient Instructions Indication:Impaired Fasting Glucose (Renamed from Elevated fasting blood sugar) Start:12-Mar-2015 Instruction Type:Provider Instructions for Treatment Patient Instructions Indication:Impaired Fasting Glucose (Renamed from Elevated fasting blood sugar) Start:11-Nov-2014 Instruction Type:Provider Instructions for Treatment Patient Instructions Indication:Hemorrhoids, unspecified hemorrhoid type Start:24-Aug-2014 Instruction Type:Provider Instructions for Treatment Patient Instructions Indication:GERD (gastroesophageal reflux disease) Start:06-Jul-2014 Instruction Type:Provider Instructions for Treatment Patient Instructions Indication:Chronic obstructive pulmonary disease Start:24-Jun-2013 Instruction Type:Provider Instructions for Treatment [facility] Work Phone: reason for referral (narrative)No reason for referral information available[facility] Work [facility]: Family History No Family History Records FoundUnknown Family Member Name Dates Details Brother 1 Comments:living and back iss ues Status:Active Father Comments:living and healthy Status:Active Maternal Grandmother Comments: - dm- Status:Active Mother Comments:living and healthy- no major medical problems Status:Active Unknown Family Member Name Dates Details Brother 1 Comments:living and back iss ues Status:Active Father Comments:living and healthy Status:Active Maternal Grandmother Comments: - dm- Status:Active Mother Comments:living and healthy- no major medical problems Status:Active Unknown Family Member Name Dates Details Brother 1 Comments:living and back iss ues Status:Active Father Comments:living and healthy Status:Active Maternal Grandmother Comments: - dm- Status:Active Mother Comments:living and healthy- no major medical problems Status:Active Unknown Family Member Name Dates Details Brother 1 Comments:living and back iss ues Status:Active Father Comments:living and healthy Status:Active Maternal Grandmother Comments: - dm- Status:Active Mother Comments:living and healthy- no major medical problems Status:Active Unknown Family Member Name Dates Details Brother 1 Comments:living and back iss ues Status:Active Father Comments:living and healthy Status:Active Maternal Grandmother Comments: - dm- Status:Active Mother Comments:living and healthy- no major medical problems Status:Active Unknown Family Member Name Dates Details Brother 1 Comments:living and back iss ues Status:Active Father Comments:living and healthy Status:Active Maternal Grandmother Comments: - dm- Status:Active Mother Comments:living and healthy- no major medical problems Status:Active Unknown Family Member Name Dates Details Brother 1 Comments:living and back iss ues Status:Active Father Comments:living and healthy Status:Active Maternal Grandmother Comments: - dm- Status:Active Mother Comments:living and healthy- no major medical problems Status:Active Unknown Family Member Name Dates Details Brother 1 Comments:living and back iss ues Status:Active Father Comments:living and healthy Status:Active Maternal Grandmother Comments: - dm- Status:Active Mother Comments:living and healthy- no major medical problems Status:Active Unknown Family Member Name Dates Details Brother 1 Comments:living and back iss ues Status:Active Father Comments:living and healthy Status:Active Maternal Grandmother Comments: - dm- Status:Active Mother Comments:living and healthy- no major medical problems Status:Active Unknown Family Member Name Dates Details Brother 1 Comments:living and back iss ues Status:Active Father Comments:living and healthy Status:Active Maternal Grandmother Comments: - dm- Status:Active Mother Comments:living and healthy- no major medical problems Status:Active Unknown Family Member Name Dates Details Brother 1 Comments:living and back iss ues Status:Active Father Comments:living and healthy Status:Active Maternal Grandmother Comments: - dm- Status:Active Mother Comments:living and healthy- no major medical problems Status:Active Unknown Family Member Name Dates Details Brother 1 Comments:living and back iss ues Status:Active Father Comments:living and healthy Status:Active Maternal Grandmother Comments: - dm- Status:Active Mother Comments:living and healthy- no major medical problems Status:Active Unknown Family Member Name Dates Details Brother 1 Comments:living and back iss ues Status:Active Father Comments:living and healthy Status:Active Maternal Grandmother Comments: - dm- Status:Active Mother Comments:living and healthy- no major medical problems Status:Active Unknown Family Member Name Dates Details Brother 1 Comments:living and back iss ues Status:Active Father Comments:living and healthy Status:Active Maternal Grandmother Comments: - dm- Status:Active Mother Comments:living and healthy- no major medical problems Status:Active Unknown Family Member Name Dates Details Brother 1 Comments:living and back iss ues Status:Active Father Comments:living and healthy Status:Active Maternal Grandmother Comments: - dm- Status:Active Mother Comments:living and healthy- no major medical problems Status:Active Unknown Family Member Name Dates Details Brother 1 Comments:living and back iss ues Status:Active Father Comments:living and healthy Status:Active Maternal Grandmother Comments: - dm- Status:Active Mother Comments:living and healthy- no major medical problems Status:Active Unknown Family Member Name Dates Details Brother 1 Comments:living and back iss ues Status:Active Father Comments:living and healthy Status:Active Maternal Grandmother Comments: - dm- Status:Active Mother Comments:living and healthy- no major medical problems Status:Active Unknown Family Member Name Dates Details Brother 1 Comments:living and back iss ues Status:Active Father Comments:living and healthy Status:Active Maternal Grandmother Comments: - dm- Status:Active Mother Comments:living and healthy- no major medical problems Status:Active Unknown Family Member Name Dates Details Brother 1 Comments:living and back iss ues Status:Active Father Comments:living and healthy Status:Active Maternal Grandmother Comments: - dm- Status:Active Mother Comments:living and healthy- no major medical problems Status:Active Unknown Family Member Name Dates Details Brother 1 Comments:living and back iss ues Status:Active Father Comments:living and healthy Status:Active Maternal Grandmother Comments: - dm- Status:Active Mother Comments:living and healthy- no major medical problems Status:Active Unknown Family Member Name Dates Details Brother 1 Comments:living and back iss ues Status:Active Father Comments:living and healthy Status:Active Maternal Grandmother Comments: - dm- Status:Active Mother Comments:living and healthy- no major medical problems Status:Active Unknown Family Member Name Dates Details Brother 1 Comments:living and back iss ues Status:Active Father Comments:living and healthy Status:Active Maternal Grandmother Comments: - dm- Status:Active Mother Comments:living and healthy- no major medical problems Status:Active Unknown Family Member Name Dates Details Brother 1 Comments:living and back iss ues Status:Active Father Comments:living and healthy Status:Active Maternal Grandmother Comments: - dm- Status:Active Mother Comments:living and healthy- no major medical problems Status:Active Instructions Name Dates Details Impaired Fasting Glucose (Re named from Elevated fasting blood sugar) : How to access health information online Indication:Impaired Fasting Glucose (Renamed from Elevated fasting blood sugar) Impaired Fasting Glucose (Re named from Elevated fasting blood sugar) : How to access health information online - Detail Indication:Impaired Fasting Glucose (Renamed from Elevated fasting blood sugar) Impaired Fasting Glucose (Re named from Elevated fasting blood sugar) : Patient Instructions Indication:Impaired Fasting Glucose (Renamed from Elevated fasting blood sugar) GERD (gastroesophageal reflu x disease) : How to access health information online Indication:GERD (gastroesophageal reflux disease) GERD (gastroesophageal reflu x disease) : How to access health information online - Detail Indication:GERD (gastroesophageal reflux disease) GERD (gastroesophageal reflu x disease) : Patient Instructions Indication:GERD (gastroesophageal reflux disease) Chronic right shoulder pain : How to access health information online Indication:Chronic right shoulder pain Chronic right shoulder pain : How to access health information online - Detail Indication:Chronic right shoulder pain Chronic right shoulder pain : Patient Instructions Indication:Chronic right shoulder pain Hemorrhoids, unspecified hem orrhoid type : Patient Instructions Indication:Hemorrhoids, unspecified hemorrhoid type Chronic obstructive pulmonar y disease : Patient Instructions Indication:Chronic obstructive pulmonary disease Name Dates Details Nonsmoker : How to access he alth information online Indication:Nonsmoker Nonsmoker : How to access he alth information online - Detail Indication:Nonsmoker Nonsmoker : Patient Instruct ions Indication:Nonsmoker Impaired Fasting Glucose (Re named from Elevated fasting blood sugar) : How to access health information online Indication:Impaired Fasting Glucose (Renamed from Elevated fasting blood sugar) Impaired Fasting Glucose (Re named from Elevated fasting blood sugar) : How to access health information online - Detail Indication:Impaired Fasting Glucose (Renamed from Elevated fasting blood sugar) Impaired Fasting Glucose (Re named from Elevated fasting blood sugar) : Patient Instructions Indication:Impaired Fasting Glucose (Renamed from Elevated fasting blood sugar) GERD (gastroesophageal reflu x disease) : How to access health information online Indication:GERD (gastroesophageal reflux disease) GERD (gastroesophageal reflu x disease) : How to access health information online - Detail Indication:GERD (gastroesophageal reflux disease) GERD (gastroesophageal reflu x disease) : Patient Instructions Indication:GERD (gastroesophageal reflux disease) Chronic right shoulder pain : How to access health information online Indication:Chronic right shoulder pain Chronic right shoulder pain : How to access health information online - Detail Indication:Chronic right shoulder pain Chronic right shoulder pain : Patient Instructions Indication:Chronic right shoulder pain Hemorrhoids, unspecified hem orrhoid type : Patient Instructions Indication:Hemorrhoids, unspecified hemorrhoid type Chronic obstructive pulmonar y disease : Patient Instructions Indication:Chronic obstructive pulmonary disease Name Dates Details Nonsmoker : How to access he alth information online Indication:Nonsmoker Nonsmoker : How to access he alth information online - Detail Indication:Nonsmoker Nonsmoker : Patient Instruct ions Indication:Nonsmoker Impaired Fasting Glucose (Re named from Elevated fasting blood sugar) : How to access health information online Indication:Impaired Fasting Glucose (Renamed from Elevated fasting blood sugar) Impaired Fasting Glucose (Re named from Elevated fasting blood sugar) : How to access health information online - Detail Indication:Impaired Fasting Glucose (Renamed from Elevated fasting blood sugar) Impaired Fasting Glucose (Re named from Elevated fasting blood sugar) : Patient Instructions Indication:Impaired Fasting Glucose (Renamed from Elevated fasting blood sugar) GERD (gastroesophageal reflu x disease) : How to access health information online Indication:GERD (gastroesophageal reflux disease) GERD (gastroesophageal reflu x disease) : How to access health information online - Detail Indication:GERD (gastroesophageal reflux disease) GERD (gastroesophageal reflu x disease) : Patient Instructions Indication:GERD (gastroesophageal reflux disease) Chronic right shoulder pain : How to access health information online Indication:Chronic right shoulder pain Chronic right shoulder pain : How to access health information online - Detail Indication:Chronic right shoulder pain Chronic right shoulder pain : Patient Instructions Indication:Chronic right shoulder pain Hemorrhoids, unspecified hem orrhoid type : Patient Instructions Indication:Hemorrhoids, unspecified hemorrhoid type Chronic obstructive pulmonar y disease : Patient Instructions Indication:Chronic obstructive pulmonary disease Name Dates Details How to access health informa tion online Indication:Nonsmoker Start:01-Oct-2018 Instruction Type:Patient Education How to access health informa tion online - Detail Indication:Nonsmoker Start:01-Oct-2018 Instruction Type:Patient Education Patient Instructions Indication:Nonsmoker Start:01-Oct-2018 Instruction Type:Provider Instructions for Treatment How to access health informa tion online Indication:Impaired Fasting Glucose (Renamed from Elevated fasting blood sugar) Start:01-Aug-2017 Instruction Type:Patient Education How to access health informa tion online - Detail Indication:Impaired Fasting Glucose (Renamed from Elevated fasting blood sugar) Start:01-Aug-2017 Instruction Type:Patient Education Patient Instructions Indication:Impaired Fasting Glucose (Renamed from Elevated fasting blood sugar) Start:01-Aug-2017 Instruction Type:Provider Instructions for Treatment How to access health informa tion online Indication:GERD (gastroesophageal reflux disease) Start:27-Mar-2016 Instruction Type:Patient Education How to access health informa tion online - Detail Indication:GERD (gastroesophageal reflux disease) Start:27-Mar-2016 Instruction Type:Patient Education Patient Instructions Indication:GERD (gastroesophageal reflux disease) Start:27-Mar-2016 Instruction Type:Provider Instructions for Treatment How to access health informa tion online Indication:Chronic right shoulder pain Start:17-Nov-2015 Instruction Type:Patient Education How to access health informa tion online - Detail Indication:Chronic right shoulder pain Start:17-Nov-2015 Instruction Type:Patient Education Patient Instructions Indication:Chronic right shoulder pain Start:17-Nov-2015 Instruction Type:Provider Instructions for Treatment Patient Instructions Indication:Impaired Fasting Glucose (Renamed from Elevated fasting blood sugar) Start:12-Mar-2015 Instruction Type:Provider Instructions for Treatment Patient Instructions Indication:Impaired Fasting Glucose (Renamed from Elevated fasting blood sugar) Start:11-Nov-2014 Instruction Type:Provider Instructions for Treatment Patient Instructions Indication:Hemorrhoids, unspecified hemorrhoid type Start:24-Aug-2014 Instruction Type:Provider Instructions for Treatment Patient Instructions Indication:GERD (gastroesophageal reflux disease) Start:06-Jul-2014 Instruction Type:Provider Instructions for Treatment Patient Instructions Indication:Chronic obstructive pulmonary disease Start:24-Jun-2013 Instruction Type:Provider Instructions for Treatment Name Dates Details How to access health informa tion online Indication:BMI 28.0-28.9,adult Start:25-Aug-2020 Instruction Type:Patient Education How to access health informa tion online - Detail Indication:BMI 28.0-28.9,adult Start:25-Aug-2020 Instruction Type:Patient Education Patient Instructions Indication:BMI 28.0-28.9,adult Start:25-Aug-2020 Instruction Type:Provider Instructions for Treatment How to access health informa tion online Indication:Nonsmoker Start:12-Nov-2019 Instruction Type:Patient Education Patient Instructions Indication:Nonsmoker Start:12-Nov-2019 Instruction Type:Provider Instructions for Treatment How to access health informa tion online Indication:Nonsmoker Start:01-Oct-2018 Instruction Type:Patient Education How to access health informa tion online - Detail Indication:Nonsmoker Start:01-Oct-2018 Instruction Type:Patient Education Patient Instructions Indication:Nonsmoker Start:01-Oct-2018 Instruction Type:Provider Instructions for Treatment How to access health informa tion online Indication:Impaired Fasting Glucose (Renamed from Elevated fasting blood sugar) Start:01-Aug-2017 Instruction Type:Patient Education How to access health informa tion online - Detail Indication:Impaired Fasting Glucose (Renamed from Elevated fasting blood sugar) Start:01-Aug-2017 Instruction Type:Patient Education Patient Instructions Indication:Impaired Fasting Glucose (Renamed from Elevated fasting blood sugar) Start:01-Aug-2017 Instruction Type:Provider Instructions for Treatment How to access health informa tion online Indication:GERD (gastroesophageal reflux disease) Start:27-Mar-2016 Instruction Type:Patient Education How to access health informa tion online - Detail Indication:GERD (gastroesophageal reflux disease) Start:27-Mar-2016 Instruction Type:Patient Education Patient Instructions Indication:GERD (gastroesophageal reflux disease) Start:27-Mar-2016 Instruction Type:Provider Instructions for Treatment How to access health informa tion online Indication:Chronic right shoulder pain Start:17-Nov-2015 Instruction Type:Patient Education How to access health informa tion online - Detail Indication:Chronic right shoulder pain Start:17-Nov-2015 Instruction Type:Patient Education Patient Instructions Indication:Chronic right shoulder pain Start:17-Nov-2015 Instruction Type:Provider Instructions for Treatment Patient Instructions Indication:Impaired Fasting Glucose (Renamed from Elevated fasting blood sugar) Start:12-Mar-2015 Instruction Type:Provider Instructions for Treatment Patient Instructions Indication:Impaired Fasting Glucose (Renamed from Elevated fasting blood sugar) Start:11-Nov-2014 Instruction Type:Provider Instructions for Treatment Patient Instructions Indication:Hemorrhoids, unspecified hemorrhoid type Start:24-Aug-2014 Instruction Type:Provider Instructions for Treatment Patient Instructions Indication:GERD (gastroesophageal reflux disease) Start:06-Jul-2014 Instruction Type:Provider Instructions for Treatment Patient Instructions Indication:Chronic obstructive pulmonary disease Start:24-Jun-2013 Instruction Type:Provider Instructions for Treatment Name Dates Details How to Access Health Informa tion Online using Patient Portal and [employer] Apps Indication:Nonsmoker Start:25-Nov-2020 Instruction Type:Patient Education Patient Instructions Indication:Nonsmoker Start:25-Nov-2020 Instruction Type:Provider Instructions for Treatment How to Access Health Informa tion Online using Patient Portal and [employer] Apps Indication:Nonsmoker Start:22-Nov-2020 Instruction Type:Patient Education Patient Instructions Indication:Nonsmoker Start:22-Nov-2020 Instruction Type:Provider Instructions for Treatment Patient Instructions Indication:Nonsmoker Start:17-Nov-2020 Instruction Type:Provider Instructions for Treatment How to Access Health Informa tion Online using Patient Portal and [employer] Apps Indication:Nonsmoker Start:17-Nov-2020 Instruction Type:Patient Education How to access health informa tion online Indication:BMI 28.0-28.9,adult Start:25-Aug-2020 Instruction Type:Patient Education How to access health informa tion online - Detail Indication:BMI 28.0-28.9,adult Start:25-Aug-2020 Instruction Type:Patient Education Patient Instructions Indication:BMI 28.0-28.9,adult Start:25-Aug-2020 Instruction Type:Provider Instructions for Treatment How to access health informa tion online Indication:Nonsmoker Start:12-Nov-2019 Instruction Type:Patient Education Patient Instructions Indication:Nonsmoker Start:12-Nov-2019 Instruction Type:Provider Instructions for Treatment How to access health informa tion online Indication:Nonsmoker Start:01-Oct-2018 Instruction Type:Patient Education How to access health informa tion online - Detail Indication:Nonsmoker Start:01-Oct-2018 Instruction Type:Patient Education Patient Instructions Indication:Nonsmoker Start:01-Oct-2018 Instruction Type:Provider Instructions for Treatment How to access health informa tion online Indication:Impaired Fasting Glucose (Renamed from Elevated fasting blood sugar) Start:01-Aug-2017 Instruction Type:Patient Education How to access health informa tion online - Detail Indication:Impaired Fasting Glucose (Renamed from Elevated fasting blood sugar) Start:01-Aug-2017 Instruction Type:Patient Education Patient Instructions Indication:Impaired Fasting Glucose (Renamed from Elevated fasting blood sugar) Start:01-Aug-2017 Instruction Type:Provider Instructions for Treatment How to access health informa tion online Indication:GERD (gastroesophageal reflux disease) Start:27-Mar-2016 Instruction Type:Patient Education How to access health informa tion online - Detail Indication:GERD (gastroesophageal reflux disease) Start:27-Mar-2016 Instruction Type:Patient Education Patient Instructions Indication:GERD (gastroesophageal reflux disease) Start:27-Mar-2016 Instruction Type:Provider Instructions for Treatment How to access health informa tion online Indication:Chronic right shoulder pain Start:17-Nov-2015 Instruction Type:Patient Education How to access health informa tion online - Detail Indication:Chronic right shoulder pain Start:17-Nov-2015 Instruction Type:Patient Education Patient Instructions Indication:Chronic right shoulder pain Start:17-Nov-2015 Instruction Type:Provider Instructions for Treatment Patient Instructions Indication:Impaired Fasting Glucose (Renamed from Elevated fasting blood sugar) Start:12-Mar-2015 Instruction Type:Provider Instructions for Treatment Patient Instructions Indication:Impaired Fasting Glucose (Renamed from Elevated fasting blood sugar) Start:11-Nov-2014 Instruction Type:Provider Instructions for Treatment Patient Instructions Indication:Hemorrhoids, unspecified hemorrhoid type Start:24-Aug-2014 Instruction Type:Provider Instructions for Treatment Patient Instructions Indication:GERD (gastroesophageal reflux disease) Start:06-Jul-2014 Instruction Type:Provider Instructions for Treatment Patient Instructions Indication:Chronic obstructive pulmonary disease Start:24-Jun-2013 Instruction Type:Provider Instructions for Treatment Name Dates Details How to access health informa tion online Start:12-Nov-2019 Instruction Type:Patient Education Patient Instructions Start:12-Nov-2019 Instruction Type:Provider Instructions for Treatment How to access health informa tion online Start:01-Oct-2018 Instruction Type:Patient Education How to access health informa tion online - Detail Start:01-Oct-2018 Instruction Type:Patient Education Patient Instructions Start:01-Oct-2018 Instruction Type:Provider Instructions for Treatment How to access health informa tion online Indication:Impaired Fasting Glucose (Renamed from Elevated fasting blood sugar) Start:01-Aug-2017 Instruction Type:Patient Education How to access health informa tion online - Detail Indication:Impaired Fasting Glucose (Renamed from Elevated fasting blood sugar) Start:01-Aug-2017 Instruction Type:Patient Education Patient Instructions Indication:Impaired Fasting Glucose (Renamed from Elevated fasting blood sugar) Start:01-Aug-2017 Instruction Type:Provider Instructions for Treatment How to access health informa tion online Indication:GERD (gastroesophageal reflux disease) Start:27-Mar-2016 Instruction Type:Patient Education How to access health informa tion online - Detail Indication:GERD (gastroesophageal reflux disease) Start:27-Mar-2016 Instruction Type:Patient Education Patient Instructions Indication:GERD (gastroesophageal reflux disease) Start:27-Mar-2016 Instruction Type:Provider Instructions for Treatment How to access health informa tion online Indication:Chronic right shoulder pain Start:17-Nov-2015 Instruction Type:Patient Education How to access health informa tion online - Detail Indication:Chronic right shoulder pain Start:17-Nov-2015 Instruction Type:Patient Education Patient Instructions Indication:Chronic right shoulder pain Start:17-Nov-2015 Instruction Type:Provider Instructions for Treatment Patient Instructions Indication:Impaired Fasting Glucose (Renamed from Elevated fasting blood sugar) Start:12-Mar-2015 Instruction Type:Provider Instructions for Treatment Patient Instructions Indication:Impaired Fasting Glucose (Renamed from Elevated fasting blood sugar) Start:11-Nov-2014 Instruction Type:Provider Instructions for Treatment Patient Instructions Indication:Hemorrhoids, unspecified hemorrhoid type Start:24-Aug-2014 Instruction Type:Provider Instructions for Treatment Patient Instructions Indication:GERD (gastroesophageal reflux disease) Start:06-Jul-2014 Instruction Type:Provider Instructions for Treatment Patient Instructions Indication:Chronic obstructive pulmonary disease Start:24-Jun-2013 Instruction Type:Provider Instructions for Treatment Advance Directives No Advanced Directives Records Found Name Dates Details Immunization Registry [place] - Effective on 01/17/2021. Expiration date unspecified Effective:17-Jan-2021 Name Dates Details Immunization Registry [place] - Effective on 01/17/2021. Expiration date unspecified Effective:17-Jan-2021 Name Dates Details Immunization Registry [place] - Effective on 01/17/2021. Expiration date unspecified Effective:17-Jan-2021 Name Dates Details Immunization Registry [place] - Effective on 01/17/2021. Expiration date unspecified Effective:17-Jan-2021 Name Dates Details Immunization Registry [place] - Effective on 01/17/2021. Expiration date unspecified Effective:17-Jan-2021 Name Dates Details Immunization Registry [place] - Effective on 01/17/2021. Expiration date unspecified Effective:17-Jan-2021 Name Dates Details Immunization Registry [place] - Effective on 01/17/2021. Expiration date unspecified Effective:17-Jan-2021 Name Dates Details Immunization Registry [place] - Effective on 01/17/2021. Expiration date unspecified Effective:17-Jan-2021 Name Dates Details Immunization Registry [place] - Effective on 01/17/2021. Expiration date unspecified Effective:17-Jan-2021 Name Dates Details Immunization Registry [place] - Effective on 01/17/2021. Expiration date unspecified Effective:17-Jan-2021 Name Dates Details Immunization Registry [place] - Effective on 01/17/2021. Expiration date unspecified Effective:17-Jan-2021 Name Dates Details Immunization Registry [place] - Effective on 01/17/2021. Expiration date unspecified Effective:17-Jan-2021 Name Dates Details Immunization Registry [place] - Effective on 01/17/2021. Expiration date unspecified Effective:17-Jan-2021 Advance Directive Response Recorded Date/ Time Living Will No December 17, 2024 2:55pm Power of Compliance Advisor No December 17 2:55pm Advance Directive Response Recorded Date/ Time Living Will No December 17, 2024 2:55pm Do you have a Healthcare Power of Compliance Advisor? No December 17, 2024 2:55pm Chief Complaint and Reason for Visit Chief Complaint DYSPHAGIA 12 MM TABL ET Chief Complaint BMP Summary Purpose Additional Source Comments Goals (unrecognized section and content) Goals may be documented in a n alternate sectionGoals may be documented in an alternate sectionGoals may be documented in an alternate sectionGoals may be documented in an alternate section Care Teams (unrecognized sec tion and content) Team Status: Active Member Role Status Dates Dr. Bonnie Torres , Family Provider Active Dr. Heather Howe DO Primary Care Provider Active Team Status: Inactive Member Role Status Dates Dr. Heather Howe DO Primary Care Provider Active Dr. Carlos Santo MD Attending Provider, Referring Provider Active Team Status: Inactive Member Role Status Dates Dr. Heather Howe DO Primary Care Provider Active Mariah Esteban GOLDSMITH APPRENTICE, GOLDSMITH APPRENTICE-C Attending Provider, Referr ing Provider Active Team Status: Inactive Member Role Status Dates Dr. Heather Howe DO Primary Care Provider Active Dr. 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 [address] [place] [address] PCP - General Internal Medicine 09/25/23 Team Status: Active Member Role Status Dates Dr. Heather Howe DO Primary Care Provider Active Team Status: Inactive Member Role Status Dates Dr. Heather Howe DO Primary Care Provider Active Start: December 29, 2024 End: December 29, 2024 Dr. Carlos Santo MD Attending Provider Active Start: December 29, 2024 End: December 29, 2024 Dr. Carlos Santo MD Referring Provider Active Start: December 29, 2024 End: December 29, 2024 Team Status: Inactive Member Role Status Dates Dr. Heather Howe DO Primary Care Provider Active Start: January 05, 2025 End: January 05, 2025 Laura Dineroing Attending Provider Active Start : January 05, 2025 End: January 05, 2025 Laura Dineroing Referring Provider Active Start : January 05, 2025 End: January 05, 2025 (unrecognized sect ion and content) No Status Records FoundNo Status Records FoundNo Status Records Found INFORMATION SOURCE (unrecogn ized section and content) DATE CREATED AUTHOR 12/21/2022 [facility] DATE CREATED AUTHOR AUTHOR'S ORGANIZ ATION 09/26/2024 [facility] EPIC DATE CREATED AUTHOR AUTHOR'S ORGANIZ ATION 04/30/2025 [facility] Reason for Visit (unrecogniz ed section and content) Reason Comments New Med Request Reason Onset Date Comments Med Refill 06/24/2024 Reason Comments Numbness FOR RECORDS PERTAINING TO PATIENTS WHO ARE OR HAVE BEEN ENROLLED IN A CHEMICAL DEPENDENCY/SUBSTANCEABUSE PROGRAM, SOME INFORMATION MAY BE OMITTED. This clinical summary was aggregated from multiple sources. Caution should be exercised in using it in the provision of clinical care. This summary normalizes information from multiple sources, and as a consequence, information in this document may materially change the coding, format and clinical context of patient data. In addition, data may be omitted in some cases. CLINICAL DECISIONS SHOULD BE BASED ON THE PRIMARY CLINICAL RECORDS. [employer] [facility]. provides no warranty or guarantee of the accuracy or completeness of information in this document.
[2025-05-04] MEDS: Lactated Ringers 1,000 ML 15 ML IV (07:20)
--- NOTE | 2025-05-04 07:43 | PCM.PRE.AN2 ---
ASA Classification* ASA Classification ASA Classification: 2 Assessment & Plan Anesthesia* Anesthesia Assessment Anesthesia Assessment: Discussed sedation and/or anesthesia options, risks, benefits, and alternatives with patient/parents/legal guardian/POA. Questions invited. The patient/parents/legal guardian/POA seems to understand and agrees to proceed with anesthesia plan. Reviewed the physical assessment, medical history, allergy history and patient home medications list prior to surgery/procedure/anesthetic and documented any changes. Performed airway and anesthesia risk assessments. Anesthesia Type Anesthesia Type: MAC History Source History Obtained from:: Patient and Chart Anesthesia Focused Assessment* Temperature: 97.3 F Pulse Rate: 64 Blood Pressure: 111/87 Respiratory Rate: 16 Pulse Ox: 100 Oxygen Delivery Method: Room Air Airway Assessment Mouth opens: >3 cm Mallampati Score: IV Teeth Condition: Caps/Crowns ([place] left lower molar. It is tight.) Neck Range of motion (ROM): Limited ROM (Somewhat Decreased) Labs Anesthesia Preop lab: CBC WBC 5.9 K/mm3 (4.4-11.0) 09/26/23 08:24 09/26/23 RBC 5.16 M/mm3 (4.6-6.2) 09/26/23 08:24 09/26/23 Hgb 14.8 g/dL (13.0-16.5) 09/26/23 08:24 09/26/23 Hct 46.3 % (40-54) 09/26/23 08:24 09/26/23 Plt Count 302 K/mm3 (150-450) 09/26/23 08:24 09/26/23 CHEMISTRY Potassium 4.0 mmol/L (3.5-5.1) 09/26/23 08:24 09/26/23 Sodium 138 mmol/L (136-145) 09/26/23 08:24 09/26/23 BUN 14 mg/dL (7-18) 09/26/23 08:24 09/26/23 Creatinine 1.07 mg/dL (0.70-1.30) 09/26/23 08:24 09/26/23 Glucose 96 mg/dL (74-106) 09/26/23 08:24 09/26/23 TSH 1.23 uIU/mL (0.358-3.74) 09/26/23 08:24 09/26/23 COAG Pre-Assessment Diagnosis/Proposed Procedure Planned Operative Procedure(s): (R) RIGHT LUMBAR RADIOFREQUENCY ABLATION AT MEDIAL BRANCH AT L4 L5 S1 UNDER FLUOROSCOPY Anesthesia History 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 When Was Last Pacemaker Check QUESTION #4 FULL TEXT: You/Your Family Experience fever (hyperthermia) with Anesthesia Last Oral Intake Last Oral intake: Last Oral Intake NPO since 21:00 05/04/25 07:20 Meds taken in AM with sips of Yes 05/04/25 07:20 water? 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 Female No 04/29/25 10:14 HX of Motion Sickness No 04/29/25 10:14 HX of N/V After Surgery No 04/29/25 10:14 Non-Smoker Yes 04/29/25 10:14 Duration of Surgery greater No 04/29/25 10:14 than 60 minutes Number of Risk Factors 1 04/29/25 10:14 PONV Score Low Risk 04/29/25 10:14 Height & Weight Height & Weight: Anesthesia: Height & Weight Height 5 ft 11 in 05/04/25 07:20 Weight: 89.8 kg 05/04/25 07:20 Body Mass Index (BMI) 27.6 05/04/25 07:20 Respiratory Assessment Respiratory Assessment - boat outfitting supervisor: Respiratory Tract Infection Hx - boat outfitting supervisor Hx Respiratory Tract Infection No 04/29/25 10:14 STOP Sleep Apnea STOP Sleep Apnea - boat outfitting supervisor: STOP Sleep Apnea - boat outfitting supervisor Hx Hypertension No 04/29/25 10:14 Hx Sleep Apnea Yes 04/29/25 10:14 CPAP Yes 04/29/25 10:14 BIPAP No 04/29/25 10:14 Do you snore loudly (louder than talking or can be heard Do you often feel tired/ fatigued/ sleepy during daytime? Has anyone observed you stop breathing during sleep? STOP Results Positive 04/29/25 10:14 QUESTION #5 FULL TEXT : Do you snore loudly (louder than talking or can be heard through closed doors)? 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 Specify any problems Hx of Preganancy in last 3 N/A 04/29/25 10:14 Months Nurse Filling Out Transfusion [facility] 04/29/25 10:14 & Questions: Date: 04/29/25 04/29/25 10:14 Time: 10:16 04/29/25 10:14 Patient unable to answer at this time (ie. 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: /Reproductive Hx- boat outfitting supervisor Hx Now No 04/29/25 10:14 Gestational Age (in weeks): EDC: Hx Hx Para Hx Section SAB No 04/29/25 10:14 Active Medications Active Medications: Current Medications Generic Name Dose Route Start Last Admin Trade Name Freq PRN Reason Stop Dose Admin Lactated Ringer's 1,000 mls @ 15 mls/hr 05/04/25 07:15 05/04/25 07:20 IV 15 mls/hr .Q48H ATTILA Administration PFSH Medical History CPAP (continuous positive airway pressure) dependence Sleep apnea Wears glasses History of steroid therapy Prostate disease Back pain Trigger middle finger Rotator cuff arthropathy of left shoulder Gastric reflux COPD (chronic obstructive pulmonary disease) Home Medications ?Medication ?Instructions ?Recorded ?Last Taken ?Type cholecalciferol (vitamin D3) 125 125 mcg PO DAILY 12/17/24 12/28/24 History mcg (5,000 unit) tablet (Vitamin D3) finasteride 5 mg tablet 5 mg PO DAILY 12/17/24 12/28/24 History gabapentin 300 mg capsule 300 mg PO QHS 12/17/24 12/28/24 History glucosamine sulfate 500 mg tablet 1,000 mg PO QDAY 12/17/24 12/28/24 History (Glucosamine) pantoprazole 40 mg tablet,delayed 40 mg PO DAILY 12/17/24 05/04/25 History release pravastatin 20 mg tablet 20 mg PO DAILY 12/17/24 12/28/24 History tamsulosin 0.4 mg capsule (Flomax) 0.4 mg PO DAILY 12/17/24 12/28/24 History Allergy/AdvReac Type Severity Reaction Status Date / Time No Known Allergies Allergy Verified 05/04/25 07:14 Surgical History H/O radiofrequency ablation (RFA) of nerve of lumbar spine Trigger finger, right middle finger S/P left rotator cuff repair Social History Smoking Status: Former smoker Review of Systems (Anesthesia) ROS Narrative System reviewed and no additional complaints, except as documented.
[2025-05-04] MEDS: Lidocaine 1% (30 ml sdv) 30 ML Vial (08:24)
--- NOTE | 2025-05-04 08:30 | RAD_ITS ---
EXAM: XR Lumbosacral Spine, 2 or 3 Views CLINICAL INDICATION: RT LUMBAR RADIOFREQUENCY ABLATION L4 L5 S1 TECHNIQUE: Frontal and lateral views of the lumbar spine and sacrum. COMPARISON: No relevant prior studies available. FINDINGS: Total fluoroscopic spot image 9. Total fluoroscopy time 31.2 seconds. Total radiation dose 6.52 mGy. RAD/Lumbar Spine 2 or 3 Views IMPRESSION: Fluoroscopic guidance was used intraoperatively. Please refer to the operative note for further details. Reading Location: [place] [facility] BEDS AT [facility]
--- NOTE | 2025-05-04 08:40 | PCM.POST.ANE ---
Anesthesia: Postop Eval I Current Vital Signs Temperature: 98.3 F Pulse Rate: 83 Blood Pressure: 119/71 Respiratory Rate: 15 Pulse Ox: 98 Oxygen Delivery Method: Room Air Assessment Airway patent: Yes Spontaneous unlabored respirations: Yes Mental status: Awake and Calm nausea: No Vomiting: No Anesthesia Complication: No Fluid Hydration Crystalloid volume administer (ml): 300 Total IV fluid infused: 300 Progress Note Anesthesia document: Postop Eval 1 completed: Yes
--- NOTE | 2025-05-04 09:11 | PCM.OPRPT ---
Operative Report (Standard) Operative Information Date of Procedure: 05/04/25 Pre-Operative Diagnosis: 1 Post-Operative Diagnosis: 1 Surgery/Procedure Performed: 1 mems integration engineer: No Type of Anesthesia: Local MAC RN Documented Start/Stop Times: Operation Date: 05/04/25 08:30 Case Time Into Pre-Op 05/04/25 07:02 Anesthesia Start 05/04/25 08:14 Into Room 05/04/25 08:14 Procedure Start 05/04/25 08:21 Procedure End 05/04/25 08:32 Anesthesia End 05/04/25 08:34 Out of Room 05/04/25 08:34 Into Recovery 05/04/25 08:36 Into Phase II Recovery 05/04/25 08:52 Out of Recovery 05/04/25 08:52 Out of Phase II 05/04/25 09:09 Procedure Start Time: 09:12 Procedure Stop Time: 09:12 Select all DRAINS/GRAFTS/IMPLANTS that apply: None Estimated Blood Loss: 1 Specimen collected: No Description of surgery: PREOPERATIVE DIAGNOSIS: Lumbosacral spondylosis, lumbosacral degenerative disc disease, lumbar facet arthropathy POSTOPERATIVE DIAGNOSIS: Lumbosacral spondylosis, lumbosacral degenerative disc disease, lumbar facet arthropathy PROCEDURE PERFORMED: Right-sided radiofrequency ablation of the medial branch at L4, L5, and S1. ANESTHESIA: MAC. BLOOD LOSS: Minimal. COMPLICATIONS: None. DESCRIPTION OF PROCEDURE: History and physical of today was reviewed. Risks and benefits of the procedure were explained. The patient understood and agreed to proceed. Informed consent was obtained. IV inserted per routine protocol. The patient was taken to the operating room and placed in the prone position with a pillow positioned underneath the abdomen. The right side of her lower back was prepped and draped in a sterile fashion using iodine x3. Under fluoroscopy guidance in an oblique view, the L3 through S1 vertebral bodies were visualized. The skin and subcutaneous tissue was anesthetized with approximately 10 mL of 1% lidocaine using a 25-gauge regular needle. Under direct visualization on fluoroscopy at approximately 25-degree angle, starting on the right L3, ending on the right S1, passing through the L4 and L5, using a 20-gauge 15-cm with a 10-mm curved active-tip radiofrequency ablation needle, the needle was passed through the skin. The tip of the needle was maneuvered and directed towards the superior medial gutter of the transverse process at the vicinity of the medial branch. Once the tip of the needle was in contact with the bone, the needle was pulled approximately 2 mm off the bone. The stylette of each needle was then removed. After negative aspiration of blood or CSF and confirmation on AP, oblique as well as lateral view, the radiofrequency ablation probe was then inserted at each level. Impedance was then recorded at L3 to be 289 ohm, at L4 to be 208 ohm, at L5 to be 298 ohm, and at S1 to be 237 ohm. Motor evoked potential was then initiated to 1.5 volt without any motor response at each corresponding level. The probe was then removed intact and a total of 6 mL of preservative-free 1% lidocaine was injected in divided doses between those four levels after negative aspiration of blood or CSF. The radiofrequency ablation probe was then reinserted. After confirmation on AP, oblique as well as lateral view, radiofrequency ablation was then initiated to 80 degree Celsius for 90 second at each level. Once concluded, the probe was then removed intact. A total of 6 mL of preservative-free 0.25% Marcaine with 40 mg of Depo-Medrol was injected in divided doses between those four levels. The needles were then removed intact. The patient experienced no sign or symptoms of intrathecal or intravascular injection. The patient experienced no paresthesia. The procedure was completed without any apparent difficulty or any complications. The patient appeared to tolerate it well. Sensory as well as motor exam was unchanged from prior to the procedure. ASSESSMENT AND PLAN: This is a 64-year-old male with lumbosacral spondylosis, lumbosacral degenerative disc disease, lumbar facet arthropathy status post right-sided lumbar radiofrequency ablation of the medial branch L4-S1, patient will continue his current medications, patient will follow-up in approximately 2 weeks for reevaluation. Surgical Findings: 1 Complications Complications: No Admit VTE Documentation VTE Present on Admission: No VTE Mechan Device Prophylaxis: None VTE Pharm Prophylaxis ordered?: No
--- NOTE | 2025-05-04 13:57 | POSTOPAN2_ITS ---
Anesthesia Postop Eval I Sum Postop Eval Completion status Anesthesia document: Postop Eval 1 completed: Yes Anesthesia Postop Eval I Summary Anesthesia Postop Eval I Summary: Anesthesia Postop Eval I: Assessment Summary Airway patent Yes 05/04/25 08:41 DERRICK [email or web address] [email or web address] Spontaneous unlabored Yes 05/04/25 08:41 DERRICK BOAT [email or web address] respirations Mental status Awake,Calm 05/04/25 08:41 [email or web address] [email or web address] nausea No 05/04/25 08:41 DERRICK BOAT [email or web address] Vomiting No 05/04/25 08:41 DERRICK [email or web address] [email or web address] Anesthesia Postop Eval I: Fluid Summary Crystalloid volume administer 300 05/04/25 08:41 DERRICK [email or web address] [email or web address] (ml) Colloids volume administered ( ml) Blood Product volume administered (ml) Total IV fluid infused 300 05/04/25 08:41 DERRICK BOAT [email or web address] Anesthesia Postop Eval I: Summary Notes Anesthesia Complication No 05/04/25 08:41 DERRICK [email or web address] [email or web address] Anesthesia Complication Comment: Post-operative progress note Anesthesia: Postop Eval II Evaluation Mental status: Awake and Calm Pain Level: 2 nausea: No Vomiting: No Complications Anesthesia Complication: No
--- NOTE | 2025-05-04 13:57 | PCM.POSTANE2 ---
Anesthesia Postop Eval I Sum Postop Eval Completion status Anesthesia document: Postop Eval 1 completed: Yes Anesthesia Postop Eval I Summary Anesthesia Postop Eval I Summary: Anesthesia Postop Eval I: Assessment Summary Airway patent Yes 05/04/25 08:41 [email or web address] [email or web address] Spontaneous unlabored Yes 05/04/25 08:41 LOAN [email or web address] respirations Mental status Awake,Calm 05/04/25 08:41 [email or web address] [email or web address] nausea No 05/04/25 08:41 [email or web address] [email or web address] Vomiting No 05/04/25 08:41 [email or web address] [email or web address] Anesthesia Postop Eval I: Fluid Summary Crystalloid volume administer 300 05/04/25 08:41 [email or web address] [email or web address] (ml) Colloids volume administered ( ml) Blood Product volume administered (ml) Total IV fluid infused 300 05/04/25 08:41 LOAN [email or web address] Anesthesia Postop Eval I: Summary Notes Anesthesia Complication No 05/04/25 08:41 LOAN [email or web address] Anesthesia Complication Comment: Post-operative progress note Anesthesia: Postop Eval II Evaluation Mental status: Awake and Calm Pain Level: 2 nausea: No Vomiting: No Complications Anesthesia Complication: No
== END 2025-05-04 09:10 | disposition home or self-care (01) ==
LOC: SDC 06:59 → AC 07:00
PROVIDERS: PCP Internal Medicine; Referring Provider Anesthesiology Pain Medicine; Visit Provider Anesthesiology Pain Medicine
PROC: (CPT 64635; principal; 2025-05-04 08:25)
DX: M51.370 Other intervertebral disc degeneration, 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 (principal); J44.9 Chronic obstructive pulmonary disease, unspecified; M47.816 Spondylosis without myelopathy or radiculopathy, lumbar region; M47.817 Spondylosis without myelopathy or radiculopathy, lumbosacral region; G47.30 Sleep apnea, unspecified; K21.9 Gastro-esophageal reflux disease without esophagitis; Z79.899 Other long term (current) drug therapy
CPT/HCPCS: 64635; 64636; 01992; 72100; 76000

== ENCOUNTER 2025-07-20 06:39 | Day surgery (SDC) | payer OTHER, SELFPAY ==
[2025-07-20] VITALS (7 sets, daily range): BP systolic 109–124; BP diastolic 72–89; PULSE 67–74; RESP 14–18; TEMP 36.3–36.5; O2SAT 96–100; BMI 26.4
--- OUTSIDE RECORDS SUMMARY | 2025-07-20 06:43 | XMS RPT_ITS | CCD ---
Author Organization [facility] Care Team Providers Care Room Service Manager Name Role Phone Shyam, Heather Unavailable Jesus Cox Unavailable DelanoalannaNadia Unavailable Unavailable Unavailable Unavailable Jesus Cox Unavailable Gravius, Licha Unavailable Unavailable Shyam, Heather Unavailable Jesus Cox Unavailable Gravius, Licha Unavailable Unavailable Unavailable Unavailable Charlie Dhillon Unavailable Unavailable Unavailable Unavailable Eze Mckeon Unavailable Bethanie Watson Unavailable Unavailable Gravius, Licha Unavailable Unavailable Josefa Reinoso Unavailable Unavailable Shyam DO, Heather Unavailable Dr. Jesus Cox MD Unavailable Mary Mejia Unavailable Eze Mckeon Unavailable Gravedgardo DAMICO, Licha Unavailable Unavailable Charlie Dhillon LPN Unavailable Unavailable Unavailable Unavailable Carri Feng MD Unavailable [phone] Bethanie Watson LPN Unavailable Unavailable Shyam DO, Heather Unavailable Dr. Crescencio Tyler Unavailable Shyam DO Heather Attending Unavailable Fast DO, Bonnie A Referring Unavailable Shyam DO, Heather Consulting Unavailable Knapic DO , Dr. Farhan Bryant Unavailab le Buchanan BEAM MACHINE OPERATOR, Kayela Unavailable Unavailable Shyam DO, Heather Primary Care Provider KWAKU SINGLETON Attending Unavailable MARIAH ESTEBAN Attending Unavailable Shyam DE LA FUENTE, Dr. Romero Primary Care Provider Gal FONSECA, Dr. Gonzalez Attending Provider Gal FONSECA, Dr. Gonzalez Referring Provider [phone] Alvord, Laura Attending Provider Alvord, Laura Referring Provider Shyam DE LA FUENTE, Dr. Romero Primary Care Provider Gal FONSECA, Dr. Gonzalez Attending Provider [phone] Gal FONSECA, Dr. Gonzalez Referring Provider Heather Howe Primary Care Unavailable Carlos Santo Attending Unavailable Carlos Santo Referring Unavailable Heather Howe Primary Care Unavailable Alvord, Laura Attending Unavailable Alvord, Laura Referring Unavailable Carlos Santo Attending Unavailable Carlos Santo Referring Unavailable Heather Howe Primary Care Unavailable Heather Howe Primary Care Unavailable Carlos Santo Attending Unavailable Carlos Santo Referring Unavailable Medications Current Medications Medication Drug Class(es) Dates Sig (Normalized) Sig (Original) cholecalciferol 0.125 mg oral tablet (13 sources) Vitamin D Start: 12-17-2024 take 1 tablet by mouth once daily Cholecalciferol (Vitamin D3) (Vitamin D3) 125 mcg (5,000 unit) tablet Active 125 ug PO DAILY December 17, 2024 1:00am take 1 capsule by mouth once musa ly Vitamin D 72961 UNIT Oral Capsule 1 daily (01539 U) Active finasteride 5 mg oral tablet (12 sources) 5-alpha Reductase Inhibitor Start: 12-17-2024 take 1 tablet by mouth once daily Finasteride 5 mg tablet Active 5 mg PO DAILY December 17, 2024 1:00am Start: 01-29-2023 take 1 tablet by helen once daily finasteride 5 mg oral tablet [...] Active Comments: Mail order. two hundred and fadlbeoH69.81 Start: 03-28-2018 take 3 mg by mouth o nce at bedtime Gabapentin 300 MG Oral Capsule 3 (three) Milligram q hs for 90 days Quantity: 270 {Capsule} Refills: 0 Ordered: 28-Mar-2018 Heather Howe DO, DO, Kathleen Start : 28-Mar-2018 Active Comments: Mail order. pxqrvuN96.81 End: 09-23-2024 take 3 capsules by mouth at bedtime gabapentin (Neurontin) 300 MG capsule take 3 capsules by mouth at bedtime 09/23/2024 Discontinued Comment on above: drjrgfY25.81 [facility] two hund red and nhhfoknW16.81 glucosamine sulfate 500 mg oral tablet (3 sources) Start: 12-18-19 25 take 2 tablets [...] Quantity: 90 {Tablet} Refills: 2 Ordered: 05-Jun-2023 Ciro TAY Kasie Start : 05-Jun-2023 Active Comments: Mail order. Start: 06-05-2023 pantoprazole 4 0 mg oral tablet, delayed release (enteric coated) [address] daily for 30 days Quantity: 30 {Tablet} Refills: 3 Ordered: 05-Jun-2023 Ciro Kasie CROSS Start : 05-Jun-2023 Active Start: 04-09-2023 pantoprazole [...] 30 {Tablet} Refills: 0 Ordered: 09-Apr-2023 Ciro TAY Kasie Start : 09-Apr-2023 Active Start: 08-02-2018 take 1 tablet by helen th once daily pantoprazole 40 mg oral tablet, delayed release (enteric coated) 1 tab daily (40 mg) Start : 11-Dec-2022 Active Comment on above: Mail order. [facility] Mail order. pravastatin sodium 20 mg oral [...] order. tamsulosin hydrochloride 0.4 mg oral capsule (17 sources) alpha-Adrenergic Stephon Start: 12-17-2024 take 1 [...] by mouth three times daily GARCINIA CAMBOGIA-CHROMIUM, [id number] (Oral Tablet) 1 tab tid (500-200 MG-MCG) End : 12-Mar-2015 Discontinued Florify (20 sources) End: 11-17-2015 Florify 1 cap daily End : 17-Nov-2015 Discontinued Comments: Probiotic Comment on above: Probiotic Garcinia Cambogia-Chromium (4 sources) End: 03-12-2015 take 1 tablet by mouth three times daily GARCINIA CAMBOGIA-CHROMIUM, [id number] (Oral Tablet) 1 tab tid (500-200 MG-MCG) End : 12-Mar-2015 Discontinued GARCINIA CAMBOGIA-CHROMIUM, [id number] (Oral Tablet) (20 sources) End: 03-12-2015 take 1 tablet by mouth three times daily GARCINIA CAMBOGIA-CHROMIUM, [id number] (Oral Tablet) 1 tab tid (500-200 MG-MCG) [...] Mtv Comment on above: Mtv Vitamin D 56138 UNIT Oral Capsule (19 sources) take 1 capsule by mouth once daily Vitamin D 96596 UNIT Oral Capsule 1 daily (96732 U) Active Problems Active Problems Problem Classification [...] lesions and s ees ortho - dr widmeredid PT / cortisone injections etc nad no [...] above: wears cpap mask Unclassified (20 sources) Imaging of thorax abnormal; Translations: [Screening status] Onset: 5 Resolved: 8 08-01-2017 Episodic Comment on above: ho of [employer] and [employer] d lots of scar-- follow up once yearly- last one 11/30 Unclassified (20 sources) Wrist pain, acute, right [...] source) Other intervertebral disc degeneration, 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; Translations: [Other intervertebral disc degeneration, 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 Heather Howe DO Status: [facility] Study: Lumbar Spine 2 or 3 Views Date of Exam: Exam# [id number] Ordering Dr: Carlos Santo MD EXAM: XR Lumbosacral Spine, 2 or 3 Views CLINICAL INDICATION: RT LUMBAR RADIOFREQUENCY ABLATION L4 L5 S1 TECHNIQUE: Frontal and lateral views of the lumbar spine and sacrum. COMPARISON: No relevant prior studies available. FINDINGS: Total fluoroscopic spot image 9. Total fluoroscopy time 31.2 seconds. Total radiation dose 6.52 mGy. RAD/Lumbar Spine 2 or 3 Views IMPRESSION: Fluoroscopic guidance was used intraoperatively. Please refer to the operative note for further details. Reading [facility] CC: Dr. Carlos Santo MD; Dr. Heather Howe DO Agricultural Research Director: Signed Normal [facility] MR/POSTOP.ANE 05-04-2025 MR/POSTOP.[facility] Medical Records Department [address] [place] [address] Anesthesia Postop Eval I 05/04/25 0840 MR#: [id number] Acct: [id number] Name: ITA EMERYNE Rep #: [id number] : 1960 64 From: Sonido Mcarthur CRNA PCP: Dr. Heather Howe, DO [place] [place] Race: C Location: [place] [address] Anesthesia: Postop Eval I Current Vital Signs Temperature: 98.3 F Pulse Rate: 83 Blood Pressure: 119/71 Respiratory Rate: 15 Pulse Ox: 98 Oxygen Delivery Method: Room Air Assessment Airway patent: Yes Spontaneous unlabored respirations: Yes Mental status: Awake and Calm nausea: No Vomiting: No Anesthesia Complication: No Fluid Hydration Crystalloid volume administer (ml): 300 Total IV fluid infused: 300 Progress Note Anesthesia document: Postop Eval 1 completed: Yes 05/04/25 08 Date Sonido [place] FERRY OPERATOR Josefinaigner Signature: Date CC: Signed Normal [facility] MR/IAKVEGVR7is 05-04-2025 [facility] Medical Records Department [address] [place] [address] Anesthesia Postop Eval II 05/04/25 1357 MR#: [id number] Acct: [id number] Name: ITA EMERY Rep #: [id number] : 1960 64 From: Mimi Anaya FERRY OPERATOR PCP: Dr. Heather Howe, DO Status:[facility] Y Race: C [place] [facility] [place]esthesia Postop Eval I Sum Postop Eval Completion status Anesthesia document: Postop Eval 1 completed: Yes Anesthesia Postop Eval I Summary Anesthesia Postop Eval I Summary: Anesthesia Postop Eval I: Assessment Summary Airway patent Yes 05/04/25 08:41 FERRY OPERATOR.ABAR Spontaneous unlabored Yes 05/04/25 08:41 FERRY OPERATOR.ABAR respirations Mental status Awake,Calm 05/04/25 08:41 FERRY OPERATOR.ABAR nausea No 05/04/25 08:41 FERRY OPERATOR.ABAR Vomiting No 05/04/25 08:41 FERRY OPERATOR.ABAR Anesthesia Postop Eval I: Fluid Summary Crystalloid volume administer 300 05/04/25 08:41 FERRY OPERATOR.ABAR (ml) Colloids volume administered ( ml) Blood Product volume administered (ml) Total IV fluid infused 300 05/04/25 08:41 FERRY OPERATOR.ABAR Anesthesia Postop Eval I: Summary Notes Anesthesia Complication No 05/04/25 08:41 FERRY OPERATOR.ABAR Anesthesia Complication Comment: Post-operative progress note Anesthesia: Postop Eval II Evaluation Mental status: Awake and Calm Pain Level: 2 nausea: No Vomiting: No Complications Anesthesia Complication: No 05/04/25 1357 Date Mimi Anaya FERRY OPERATOR Cosigner Signature: Date CC: Signed Normal [facility] Operative Reporton 5 Operative Report [facility] Medical Records Department [address] [place] [address] Operative Report 05/04/25 0911 MR#: [id number] Acct: [id number] Name: ITA EMERY Rep #: [id number] : 1960 64 From: Carlos Santo MD PCP: Dr. Heather Howe, DO Status:[facility] Location[place] [facility] Operative Report (Standard) Operative Information Date of Procedure: 05/04/25 Pre-Operative Diagnosis: 1 Post-Operative Diagnosis: 1 Surgery/Procedure Performed: 1 animal hospital office supervisor: No Type of Anesthesia: Local MAC RN Documented Start/Stop Times: Operation Date: 05/04/25 08:30 Case Time Into Pre-Op 05/04/25 07:02 Anesthesia Start 05/04/25 08:14 Into Room 05/04/25 08:14 Procedure Start 05/04/25 08:21 Procedure End 05/04/25 08:32 Anesthesia End 05/04/25 08:34 Out of Room 05/04/25 08:34 Into Recovery 05/04/25 08:36 Into Phase II Recovery 05/04/25 08:52 Out of Recovery 05/04/25 08:52 Out of Phase II 05/04/25 09:09 Procedure Start Time: 09:12 Procedure Stop Time: 09:12 Select all DRAINS/GRAFTS/IMPLANTS that apply: None Estimated Blood Loss: 1 Specimen collected: No Description of surgery: PREOPERATIVE DIAGNOSIS: Lumbosacral spondylosis, lumbosacral degenerative disc disease, lumbar facet arthropathy POSTOPERATIVE DIAGNOSIS: Lumbosacral spondylosis, lumbosacral degenerative disc disease, lumbar facet arthropathy PROCEDURE PERFORMED: Right-sided radiofrequency ablation of the medial branch at L4, L5, and S1. ANESTHESIA: MAC. BLOOD LOSS: Minimal. COMPLICATIONS: None. DESCRIPTION OF PROCEDURE: History and physical of today was reviewed. Risks and benefits of the procedure were explained. The patient understood and agreed to proceed. Informed consent was obtained. IV inserted per routine protocol. The patient was taken to the operating room and placed in the prone position with a pillow positioned underneath the abdomen. The right side of her lower back was prepped and draped in a sterile fashion using iodine x3. Under fluoroscopy guidance in an oblique view, the L3 through S1 vertebral bodies were visualized. The skin and subcutaneous tissue was anesthetized with approximately 10 mL of 1% lidocaine using a 25-gauge regular needle. Under direct visualization on fluoroscopy at approximately 25-degree angle, starting on the right L3, ending on the right S1, passing through the L4 and L5, [...] was then recorded at L3 to be 289 ohm, at L4 to be 208 ohm, at L5 to be 298 ohm, and at S1 to be 237 ohm. Motor evoked potential was then initiated [...] disc disease, lumbar facet arthropathy status post right-sided lumbar radiofrequency ablation of the medial branch L4-S1, patient will continue his current medications, patient will follow-up in approximately 2 weeks for reevaluation. Surgical Findings: 1 Complications Complications: No Admit VTE Documentation VTE Present on Admission: No VTE Mechan Device Prophylaxis: None VTE Pharm Prophylaxis ordered?: No 05/04/25 0913 Cosigner Signature (if applicable): CC: Dr. Carlos Santo MD; Dr. Heather Howe DO Signed Normal [facility] PSA, total screeningOrdered By: Laura Ha on 01-05-2025 Prostate Specific Antigen Screen 0.21 ng/mL 0.02-4.00 [facility] Comment on above: This test was [...] 01-05-2025 PSA,TOT SCREEN 0.21 ng/mL Normal 0.02-4.00 [facility] Comment on above: Result Comment: This [...] values. Performed By: #### L [id number] #### [facility] Laboratory [address] [place], [address] L/S Spine Min 4 Viewson 12-13 L/S Spine Min 4 Views [facility] Imaging Services [address] [place] [address] L/S Spine Min 4 Views MR#: [id number] Acct: [id number] Name: ITA EMERY Rep #: [id number] : 1960 M 64 From: Derick Mckenzie MD PCP: Dr. Heather Howe DO Status: [facility] Study: L/S Spine Min 4 Views Date of Exam: 12/29/24 Exam# [id number] Ordering Dr: Carlos Santo MD PROCEDURE: L/S [...] Carlos Santo MD; Dr. Heather Howe DO Agricultural Research Director: Signed Normal [facility] MR/POSTOP.ANE 12-29-2024 MR/POSTOP.ANE [facility] Medical Records Department [address] [place] [address] Anesthesia Postop Eval I 12/29/24 0826 MR#: [id number] Acct: [id number] Name: ITA EMERY Rep #: [id number] : 1960 64 From: Latanya Granda FERRY OPERATOR PCP: Dr. Heather Howe, DO Status:[facility] [place] Race: C Location: [place] [address] Anesthesia: Postop Eval I Current Vital Signs Temperature: 97 F Pulse Rate: 78 Blood Pressure: 132/93 Respiratory Rate: 14 Pulse Ox: 98 Assessment Airway patent: Yes Spontaneous unlabored respirations: Yes Mental status: Awake nausea: No Vomiting: No Anesthesia Complication: No Fluid Hydration Crystalloid volume administer (ml): 10 Total IV fluid infused: 10 Progress Note Anesthesia document: Postop Eval 1 completed: Yes 12/29/24826 Latanya Granda FERRY OPERATOR Cosigner Signature: Date CC: Signed Normal [facility] MR/[id number] 12-29-2024 [facility] Medical Records Department [address] [place] [address] Anesthesia Postop Eval II 12/29/24 1002 MR#: [id number] Acct: [id number] Name: ITA EMERY Rep #: [id number] : 1960 64 From: Alysha Ventura PCP: Dr. Heather Howe, DO Status:[facility] [place] Race: C [place] [facility] Anesthesia Postop Eval I Sum Postop Eval Completion status Anesthesia document: Postop Eval 1 completed: Yes Anesthesia Postop Eval I Summary Anesthesia Postop Eval I Summary: Anesthesia Postop Eval I: Assessment Summary Airway patent Yes 12/29/24 08:27 FERRY OPERATOR.LMIL Spontaneous unlabored Yes 12/29/24 08:27 FERRY OPERATOR.LMIL respirations Mental status Awake 12/29/24 08:27 FERRY OPERATOR.LMIL nausea No 12/29/24 08:27 FERRY OPERATOR.LMIL Vomiting No 12/29/24 08:27 FERRY OPERATOR.LMIL Anesthesia Postop Eval I: Fluid Summary Crystalloid volume administer 10 12/29/24 08:27 FERRY OPERATOR.LMIL (ml) Colloids volume administered ( ml) Blood Product volume administered (ml) Total IV fluid infused 10 12/29/24 08:27 FERRY OPERATOR.LMIL Anesthesia Postop Eval I: Summary Notes Anesthesia Complication No 12/29/24 08:27 FERRY OPERATOR.LMIL Anesthesia Complication Comment: Post-operative progress note Anesthesia: Postop Eval II Evaluation Mental status: Awake Pain Level: 2 nausea: No Vomiting: No 12/29/24 1003 Date Alyshatimothy Rochasherrychris Signature: Date CC: Signed Normal [facility] Operative Reporton 5 Operative Report [facility] Medical Records Department [address] [place] [address] Operative Report 12/29/24819 MR#: [id number] Acct: [id number] Name: ITA EMERY Rep #: [id number] : 1960 64 From: Carlos Santo MD PCP: Dr. Heather Howe, DO Status:[facility] Location: [place] [address] Operative Report (Standard) Operative Information Date of Procedure: 12/29/24 Pre-Operative Diagnosis: Lumbosacral spondylosis, lumbosacral degenerative disc disease, lumbar facet arthropathy Post-Operative Diagnosis: Lumbosacral spondylosis, lumbosacral degenerative disc disease, lumbar facet arthropathy Surgery/Procedure Performed: Left-sided lumbar radiofrequency ablation of the medial branch at L4, L5, S1 under fluoroscopy animal hospital office supervisor: No Type of Anesthesia: Local MAC RN Documented Start/Stop Times: Operation Date: 12/29/24 08:00 Case Time Into Pre-Op 12/29/24 06:41 Anesthesia Start 12/29/24 08:03 Into Room 12/29/24 08:03 Procedure Start 12/29/24 08:09 Procedure Start Time: 08:21 Procedure Stop Time: : Select all DRAINS/GRAFTS/IMPLANTS that apply: None Estimated [...] No VTE Pharm Prophylaxis ordered?: No 12/29/24 0823 Cosigner Signature (if applicable): CC: Dr. Carlos Santo MD; Dr. Heather Howe DO Signed Normal [facility] No Panel InformationOrdered By: Johann Meyers on 12-18-2023 Prostate Specific Antigen Screen 0.39 ng/mL 0.00-4.00 [facility] Comment on above: This test was perfor med using the TPSA assay method for thesetObject chemistry system. Values obtained with differentassay methods cannot be used interchangably.When changing PSA assays in the course of monitoring apatient, additional sequential testing should be carriedout to confirm baseline values. 24 hour urine alpha 2 globul in/total protein ratio by electrophoresis (mass fraction)Ordered By: Mariah Esteban on 09-26-2023 Alpha 2 globulin Elph (24H U) [Mass fraction] 17.8 % . [facility] 24 hour urine beta globulin/ total protein ratio by electrophoresis (mass fraction)Ordered By: Mariah Esteban on 09-26-2023 Beta globulin Elph (24H U) [Mass fraction] 22.5 % . [facility] 24 hour urine gamma globulin /total protein ratio by electrophoresis (mass fraction)Ordered By: Mariah Esteban on 09-26-2023 Gamma globulin Elph (24H U) [Mass fraction] 11.8 % . [facility] Albumin Elph [Mass/Vol]Order ed By: Mariah Esteban on 09-26-2023 Albumin [Mass/Vol] 3.9 g/dL 2.9-4.4 [facility] Basophil percentageOrdered B y: Mariah Esteban on 09-26-2023 Basophil percentage 2 ug/L 0-9 [facility] Comment on above: Detection Limit = 1 Bilirubin [Mass/Vol] 0.60 mg/dL 0.20-1.00 [facility] Comment on above: For patients on eltr ombopag therapy, use of Dimension [place] TBIL is not recommended. Chloride [Moles/Vol] 104 mmol/L 98-107 [facility] Glucose [Mass/Vol] 96 mg/dL 74-106 [facility] Potassium [Moles/Vol] 4.0 mmol/L 3.5-5.1 [facility] Protein [Mass/Vol] 7.1 g/dL 6.4-8.2 [facility] Sodium [Moles/Vol] 138 mmol/L 136-145 [facility] WBC (Bld) [#/Vol] 5.9 10*3/uL 4.4-11.0 [facility] Blood erythrocytes count (nu mber/volume)Ordered By: Mariahdenzel Esteban on 09-26-2023 RBC (Bld) [#/Vol] 5.16 10*6/uL 4.6-6.2 [facility] Blood hemoglobin measurement (mass/volume)Ordered By: Mariahdenzel Esteban on 09-26-2023 Hemoglobin (Bld) [Mass/Vol] 14.8 g/dL 13.0-16.5 [facility] Blood mercury measurement (m ass/volume)Ordered By: Mariahdenzel Esteban on 09-26-2023 Mercury (Bld) [Mass/Vol] < 1.0 ug/L 0.0-14.9 [facility] Comment on above: Environmental Exposu re: <15.0 Occupational Exposure: YANICK - Inorganic Mercury: 15.0 Detection Limit = 1.0Performed at: [employer] [id number] Director: Crescencio Fisher PhD, Phone: [phone] at: [facility] [id number] [place], [place] [id number] Director: Oswaldo Feldman MD, Phone: [phone] Blood platelet mean volumeOr dered By: Mariah Esteban on 09-26-2023 Platelet mean volume (Bld) [Entitic vol] 9.5 fL 6.2-12.0 [facility] Determination of erythrocyte mean corpuscular volume (MCV)Ordered By: Mariah Esteban on 09-26-2023 MCV (RBC) [Entitic vol] 89.7 fL 80-[address] [facility] Erythrocyte sedimentation ra teOrdered By: Mariah Esteban on 09-26-2023 ESR (Bld) [Velocity] mm/h 0-20 [facility] Hematocrit Auto (Bld) [Volum e fraction]Ordered By: Mariah Esteban on 09-26-2023 Hematocrit (Bld) [Volume fraction] 46.3 % 40-54 [facility] Interpretation of serum or p lasma protein pattern by immunofixation (narrative resultOrdered By: Mariah Esteban on 09-26-2023 Protein Fractions Immunofixation Missael [Interp] Not Observed g/dL Not Observed [facility] Laboratory - Chemistry and C hemistry - challengeOrdered By: Mariah Esteban on 09-26-2023 ALP [Catalytic activity/Vol] 68 U/L 45-117 [facility] ALT [Catalytic activity/Vol] 39 U/L 16-61 [facility] CO2 [Moles/Vol] 31.0 mmol/L 21.0-32.0 [facility] Cobalamin (Vitamin B12) [Mass/Vol] 343 pg/mL 211-911 [facility] Globulin (S) [Mass/Vol] 3.3 g/dL 2.2-4.[address] [facility] Urea nitrogen/Creatinine [Mass ratio] 13.1 mg/mg 10-20 [facility] Laboratory - Hematology and Cell countsOrdered By: Mariah Esteban on 09-26-2023 Erythrocyte distribution width (RBC) [Entitic vol] 40.5 fL 35.1-43.9 [facility] Erythrocyte distribution width (RBC) [Ratio] 12.2 % 11.6-14.6 [facility] MCH (RBC) [Entitic mass] 28.7 pg 27.0-32.0 [facility] MCHC Auto (RBC) [Mass/Vol]Or dered By: Mariah Esteban on 09-26-2023 MCHC (RBC) [Mass/Vol] 32.0 g/dL 32-36 [facility] No Panel InformationOrdered By: Mariah Esteban on 09-26-2023 Addendum Document Comment . [facility] Comment on above: Protein electrophore sis scan will follow via computer,mail, or program checker delivery. Estimated GFR (MDRD) Amer 90 mL/min >60 [facility] Comment on above: GFR Calc Estimated GFR (MDRD) Non-Af Amer 74 mL/min >60 [facility] Comment on above: Non- GFR Calc Lead < 1.0 ug/dL 0.0-3.4 [facility] Comment on above: Testing performed by Inductively coupled plasma/MassSpectrometry. Environmental Exposure: WHO Recommendation <5.0 Occupational Exposure: OSHA Lead Std 40.0 YANICK 30.0 Detection Limit = 1.0 Thyroid Stimulating Hormone (TSH) 1.23 uIU/mL 0.358-3.74 [facility] Urine Immunofixation PEP Note Comment . [facility] Comment on above: Protein electrophore sis scan will follow via computer,mail, or program checker delivery. Platelets bldOrdered By: Rhonda Esteban on 09-26-2023 Platelets (Bld) [#/Vol] 302 10*3/uL 150-450 [facility] Serum [id number] measu rement by electrophoresisOrdered By: Mariah Esteban on 09-26-2023 Alpha 1 globulin Elph [Mass/Vol] 0.2 g/dL 0.0-0.4 [facility] Alpha 1 globulin Elph [Mass/Vol] 0.6 g/dL 0.4-1.0 [facility] Serum globulin measurement ( mass/volume)Ordered By: Mariah Esteban on 09-26-2023 Globulin (S) [Mass/Vol] 2.6 g/dL 2.2-3.[address] [facility] Serum or plasma C reactive p rotein measurement (mass/volume)Ordered By: Mariah Esteban on 09-26-2023 CRP [Mass/Vol] mg/L 0.0-3.0 [facility] Comment on above: C-Reactive Protein ( CRP) provides useful information for thediagnosis, therapy and monitoring of inflammatory processesand associated diseases. For the evaluation of Relative Riskfor Cardiovascular Disease, a High Sensitivity CRP (HSCRP)should be ordered. Serum or plasma IgA measurem ent (mass/volume)Ordered By: Mariah Esteban on 09-26-2023 IgA [Mass/Vol] 205 mg/dL 61-437 [facility] Serum or plasma IgG measurem ent (mass/volume)Ordered By: Mariah Esteban on 09-26-2023 IgG [Mass/Vol] 919 mg/dL 603-1613 [facility] Serum or plasma IgM measurem ent (mass/volume)Ordered By: Mariahdenzel Esteban on 09-26-2023 IgM [Mass/Vol] 103 mg/dL 20-172 [facility] Serum or plasma albumin kiet urement (mass/volume)Ordered By: Mariah Esteban on 09-26-2023 Albumin [Mass/Vol] 3.8 g/dL 3.2-5.0 [facility] Serum or plasma albumin/glob ulin mass ratioOrdered By: Mariah Esteban on 09-26-2023 Albumin/Globulin [Mass ratio] 1.2 {ratio} 0.9-2.4 [facility] Serum or plasma beta globuli n measurement by electrophoresis (mass/volume)Ordered By: Mariah Esteban on 09-26-2023 Beta globulin Elph [Mass/Vol] 0.9 g/dL 0.7-1.3 [facility] Serum or plasma calcium kiet urement (mass/volume)Ordered By: Mariah Esteban on 09-26-2023 Calcium [Mass/Vol] 8.8 mg/dL 8.5-10.1 [facility] Serum or plasma creatinine m easurement (mass/volume)Ordered By: Mariah Esteban on 09-26-2023 Creatinine [Mass/Vol] 1.07 mg/dL 0.70-1.30 [facility] Comment on above: The validity of the calculated GFR & GFRAA in patients over 70 years has not been determined. Clinical correlation is essential. Serum or plasma gamma globul in measurement by electrophoresis (mass/volume)Ordered By: Mariah Esetban on 09-26-2023 Gamma globulin Elph [Mass/Vol] 0.9 g/dL 0.4-1.8 [facility] Serum or plasma immunoelectr ophoresis interpretation (nominal result)Ordered By: Mariah Esteban on 09-26-2023 Interpretation IEP [Interp] Comment . [facility] Comment on above: No monoclonality det ected. Serum or plasma urea nitroge n measurement (mass/volume)Ordered By: Mariah Esteban on 09-26-2023 Urea nitrogen [Mass/Vol] 14 mg/dL 7-18 [facility] Thin prep Papanicolaou smear with manual screeningOrdered By: Mariahdenzel Esteban on 09-26-2023 Thin prep Papanicolaou smear with manual screening 17 U/L 15-37 [facility] Thin prep Papanicolaou smear with manual screening 3 5-15 [facility] Thin prep Papanicolaou smear with manual screening 1.6 0.7-1.7 [facility] Total protein bloodOrdered B y: Mariah Esteban on 09-26-2023 Protein [Mass/Vol] 6.5 g/dL 6.0-8.5 [facility] Urine albumin/total protein mass ratio by electrophoresisOrdered By: Mariah Esteban on 09-26-2023 Albumin Elph (U) [Mass fraction] 37.5 % . [facility] Urine alpha 1 globulin/total protein ratio by electrophoresis (mass fraction)Ordered By: Mariah Esteban on 09-26-2023 Alpha 1 globulin Elph (U) [Mass fraction] 10.3 % . [facility] Urine monoclonal protein/tot al protein mass ratio by electrophoresisOrdered By: Mariah Esteban on 09-26-2023 Protein.monoclonal Elph (U) [Mass fraction] See comment [facility] Comment on above: Result: Not Observed Urine protein measurement (m ass/volume)Ordered By: Mariah Esteban on 09-26-2023 Protein (U) [Mass/Vol] 10.1 mg/dL Not Estab. [facility] CALCIFIDIOL (58414) VIT D 25 Ordered By: Data Reporting Analyst on 01-29-2023 25-hydroxyvitamin D [Mass/Vol] 88.3 ng/mL Normal 30.0-100.0 [facility]; [facility] Work Phone: Comment on above: Vitamin D deficiency has been defined by the [place] ofMedicine and an Endocrine Society practice guideline as alevel of serum 25-OH vitamin D less than 20 ng/mL (1,2).The Endocrine Society went on to further define vitamin Dinsufficiency as a level between 21 and 29 ng/mL (2).1. IOM ([place] of Medicine). 2010. Dietary reference intakes for calcium and D. [place]: The National Academies Press.2. Abraham MF, Robert MOREIRA, Seamus JOYNER, et al. Evaluation, treatment, and prevention of vitamin D deficiency: an Endocrine Society clinical practice guideline. JCEM. 2010; 96(7):1911-30. PATIENT WAS FASTINGP ERFORMED BY: [employer] [place] [id number] CBC W/AUTO DIFF WBC (23722)O rdered By: Data Reporting Analyst on 01-29-2023 Basophils (Bld) [#/Vol] 0.1 10*3/uL Normal 0.0-0.2 [facility]; [facility] Work Phone: Comment on above: PATIENT WAS FASTINGP ERFORMED BY: [employer] [place] [id number] Basophils/100 WBC (Bld) 2 % Normal C omprehensive [facility]; [facility] Work Phone: Comment on above: PATIENT WAS FASTINGP ERFORMED BY: [employer] [place] [id number] Eosinophils (Bld) [#/Vol] 0.3 10*3/uL Normal 0.0-0.4 [facility]; [facility] Work Phone: Comment on above: PATIENT WAS FASTINGP ERFORMED BY: [id number] [facility] [id number] Eosinophils/100 WBC (Bld) 6 % Normal [facility]; [facility] Work Phone: Comment on above: PATIENT WAS FASTINGP ERFORMED BY: BIANCA Rocío Sequeira6370 [facility] [id number] Erythrocyte distribution width (RBC) [Ratio] 12.5 % Normal 11.6-15.4 [facility]; [facility] Work Phone: Comment on above: PATIENT WAS FASTINGP ERFORMED BY: [facility] Jwvbij9431 [facility] [id number] Hematocrit (Bld) [Volume fraction] 42.9 % Normal 37.5-51.0 [facility]; [facility] Work Phone: Comment on above: PATIENT WAS FASTINGP ERFORMED BY: [facility] Wnynoa6767 [facility] [id number] Hemoglobin (Bld) [Mass/Vol] 13.6 g/dL Normal 13.0-17.7 [facility]; [facility] Work Phone: Comment on above: PATIENT WAS FASTINGP ERFORMED BY: Effie Zcjkmy8171 [facility] [id number] Immature granulocytes (Bld) [#/Vol] 0.0 10*3/uL Normal 0.0-0.1 [facility]; [facility] Work Phone: Comment on above: PATIENT WAS FASTINGP ERFORMED BY: [facility] Blpmdk5337 [facility] [id number] Immature granulocytes/100 WBC (Bld) 0 % Normal [facility]; [facility] Work Phone: Comment on above: PATIENT WAS FASTINGP ERFORMED BY: [facility] Wxrvuy4063 [facility] [id number] Lymphocytes (Bld) [#/Vol] 1.0 10*3/uL Normal 0.7-3.1 [facility]; [facility] Work Phone: Comment on above: PATIENT WAS FASTINGP ERFORMED BY: [facility] [facility] [id number] Lymphocytes/100 WBC (Bld) 20 % Normal [facility]; [facility] Work Phone: Comment on above: PATIENT WAS FASTINGP ERFORMED BY: [facility] Jckhzi2372 [address] [facility] [id number] MCH (RBC) [Entitic mass] 28.2 pg Normal 26.6-33.0 [facility]; [facility] Work Phone: Comment on above: PATIENT WAS FASTINGP ERFORMED BY: [facility]6370 [facility] [id number] MCHC (RBC) [Mass/Vol] 31.7 g/dL Normal 31.5-35.7 [facility] prehensive Internal Medicine; [facility] Work Phone: Comment on above: PATIENT WAS FASTINGP ERFORMED BY: [place] [id number] [facility] [id number] MCV (RBC) [Entitic vol] 89 fL Normal 79-97 C omprehens[facility]; [facility] Work Phone: Comment on above: PATIENT WAS FASTINGP ERFORMED BY: [facility]6370 [facility] [id number] Monocytes (Bld) [#/Vol] 0.3 10*3/uL Normal 0.1-0.9 [facility]; [facility] Work Phone: Comment on above: PATIENT WAS FASTINGP ERFORMED BY: [facility]6370 [facility] [id number] Monocytes/100 WBC (Bld) 6 % Normal C [facility]; [facility] Work Phone: Comment on above: PATIENT WAS FASTINGP ERFORMED BY: [facility]6370 [facility]in [place] [id number] Neutrophils (Bld) [#/Vol] 3.2 10*3/uL Normal 1.4-7.0 [facility]; [facility] Work Phone: Comment on above: PATIENT WAS FASTINGP ERFORMED BY: BIANCA [facility] Dwwgbs5784 [address] [place] [id number] Neutrophils/100 WBC (Bld) 66 % Normal [facility]; [facility] Work Phone: Comment on above: PATIENT WAS FASTINGP ERFORMED BY: CB [facility] Xizmlu2102 [address]Dublin [place] [id number] Platelets (Bld) [#/Vol] 250 10*3/uL Normal 150-450 [facility]; [facility] Work Phone: Comment on above: PATIENT WAS FASTINGP ERFORMED BY: CB [facility] Zilvwj8199 [address]Dublin [place] [id number] RBC (Bld) [#/Vol] 4.82 10*6/uL Normal 4.14-5.80 [facility]; [facility] Work Phone: Comment on above: PATIENT WAS FASTINGP ERFORMED BY: CB [facility] Sluass5473 [address] [place] [id number] WBC (Bld) [#/Vol] 4.9 10*3/uL Normal 3.4-10.8 [facility]; [facility] Work Phone: Comment on above: PATIENT WAS FASTINGP ERFORMED BY: BIANCA [facility] Hdpqnn3656 [address] RoadDublin [place] [id number] HGB A1C (13784)Ordered By: S ystem Asphalt Dauber on 01-29-2023 HbA1c (Bld) [Mass fraction] 5.6 % Normal 4.8-5.6 [facility]; [facility] Work Phone: Comment on above: . Prediabetes: 5.7 - 6.4 Diabetes: >6.4 Glycemic control for adults with diabetes: <7.0 PATIENT WAS FASTINGP ERFORMED BY: CB [facility] Hqnqlo3079 [address]Dublin [place] [id number] LIPID PANEL (52597)Ordered B y: Data Reporting Analyst on 01-29-2023 Cholesterol [Mass/Vol] 197 mg/dL Normal 100-199 Co mprehensive [facility]; [facility] Work Phone: Comment on above: PATIENT WAS FASTINGP ERFORMED BY: BIANCA [facility] Fljyuw8[address] [facility] [id number] Cholesterol in HDL [Mass/Vol] 65 mg/dL Normal [facility]; [facility] Work Phone: Comment on above: PATIENT WAS FASTINGP ERFORMED BY: BIANCA [facility] Sayvsy8824 [address] [facility] [id number] Triglyceride [Mass/Vol] 75 mg/dL Normal 0-149 C [facility]; [facility] Work Phone: Comment on above: PATIENT WAS FASTINGP ERFORMED BY: BIANCA [facility] Tonefg7895 [facility] [id number] LIPID PANEL (78642) 14 mg/dL Normal 5-40 [facility]; [facility] Work Phone: Comment on above: PATIENT WAS FASTINGP ERFORMED BY: BIANCA [facility] Lazojl1084 [facility] [id number] LIPID PANEL (18004) 118 mg/dL Abnormal 0-99 [facility]; [facility] Work Phone: Comment on above: PATIENT WAS FASTINGP ERFORMED BY: BIANCA [facility] Thrpwu9326 [facility] [id number] LIPID PANEL (03999) 1.8 {ratio} Normal 0.0-3.6 [facility]; [facility] Work Phone: Comment on above: LDL/HDL Ratio Men Wo men 1/2 Avg.Risk 1.0 1.5 Avg.Risk 3.6 3.2 2X Avg.Risk 6.2 5.0 3X Avg.Risk 8.0 6.1 PATIENT WAS FASTINGP ERFORMED BY: BIANCA [facility] Zthiap[address] [facility] [place] [id number] METABOLIC PANEL, COMPREHENSI VE (12559)Ordered By: Data Reporting Analyst on 01-29-2023 Albumin [Mass/Vol] 4.4 g/dL Normal 3.8-4.8 [facility]; [facility] Work Phone: Comment on above: PATIENT WAS FASTINGP ERFORMED BY: CB [facility] Tsepnc4394 [address]Dublin [place] [id number] Albumin/Globulin [Mass ratio] 2.0 {ratio} Normal 1.2-2.2 [facility]; [facility] Work Phone: Comment on above: PATIENT WAS FASTINGP ERFORMED BY: CB [facility] Wrxzyq5269 [address] [place] [id number] ALP [Catalytic activity/Vol] 59 U/L Normal 44-121 [facility]; [facility] Work Phone: Comment on above: PATIENT WAS FASTINGP ERFORMED BY: CB [facility] Kbkboh3233 [address]Dublin [place] [id number] ALT [Catalytic activity/Vol] 24 U/L Normal 0-44 [facility]; [facility] Work Phone: Comment on above: PATIENT WAS FASTINGP ERFORMED BY: CB [facility] Qgjnax9821 [address]Dublin [place] [id number] AST [Catalytic activity/Vol] 17 U/L Normal 0-40 [facility]; [facility] Work Phone: Comment on above: PATIENT WAS FASTINGP ERFORMED BY: CB [facility] Nwfrps5424 [address]Dublin [place] [id number] Bilirubin [Mass/Vol] 0.4 mg/dL Normal 0.0-1.2 [facility]; [facility] Work Phone: Comment on above: PATIENT WAS FASTINGP ERFORMED BY: CB [facility] Tonlwj5729 [address]Dublin [place] [id number] Calcium [Mass/Vol] 9.3 mg/dL Normal 8.6-10.2 [facility]; [facility] Work Phone: Comment on above: PATIENT WAS FASTINGP ERFORMED BY: CB [facility] Efvxud5343 [address]Dublin [place] [id number] Chloride [Moles/Vol] 104 mmol/L Normal 96-106 Comp rehensive [facility]; [facility] Work Phone: Comment on above: PATIENT WAS FASTINGP ERFORMED BY: BIANCA [facility] Ylncdz[address] [facility] [place] [id number] CO2 [Moles/Vol] 26 mmol/L Normal 20-29 [facility]; [facility] Work Phone: Comment on above: PATIENT WAS FASTINGP ERFORMED BY: BIANCA [facility] Rqrxlj9507 [address] [facility] [id number] Creatinine [Mass/Vol] 0.84 mg/dL Normal 0.76-1.27 Com prehensive [facility]; [facility] Work Phone: Comment on above: PATIENT WAS FASTINGP ERFORMED BY: BIANCA [facility] Dwuwox5985 [facility] [id number] GFR/1.73 sq M.predicted among non-blacks MDRD (S/P/Bld) [Vol rate/Area] 99 mL/min/{1.73_m2} Normal Comprehensiv e [facility]; [facility] Work Phone: Comment on above: PATIENT WAS FASTINGP ERFORMED BY: BIANCA [facility] Tcshzk4773 [facility] [id number] Globulin (S) [Mass/Vol] 2.2 g/dL Normal 1.5-4.5 C omprehensive [facility]; [facility] Work Phone: Comment on above: PATIENT WAS FASTINGP ERFORMED BY: BIANCA [facility] Rjkvhj3346 [address] [facility] [id number] Glucose [Mass/Vol] 90 mg/dL Normal 70-99 Com[facility]; [facility] Work Phone: Comment on above: PATIENT WAS FASTINGP ERFORMED BY: BIANCA [facility] Lcpkys6253 [address] [facility] [id number] Potassium [Moles/Vol] 4.6 mmol/L Normal 3.5-5.2 Com prehensive [facility]; [facility] Work Phone: Comment on above: PATIENT WAS FASTINGP ERFORMED BY: BIANCA [facility] Pfbvyl7892 [address]Dublin [place] [id number] Protein [Mass/Vol] 6.6 g/dL Normal 6.0-8.5 [facility]; [facility] Work Phone: Comment on above: PATIENT WAS FASTINGP ERFORMED BY: BIANCA [facility] Bgbwvh0065 [address]Dublin [place] [id number] Sodium [Moles/Vol] 140 mmol/L Normal 134-144 [facility]; [facility] Work Phone: Comment on above: PATIENT WAS FASTINGP ERFORMED BY: BIANCA [facility] Cmcrcg9383 [address] [place] [id number] Urea nitrogen [Mass/Vol] 17 mg/dL Normal 8-27 [facility]; [facility] Work Phone: Comment on above: PATIENT WAS FASTINGP ERFORMED BY: BIANCA Lablee MorganLyhaeb1933 [address]Dublin [place] [id number] Urea nitrogen/Creatinine [Mass ratio] 20 mg/mg Normal 10-24 [facility]; [facility] Work Phone: Comment on above: PATIENT WAS FASTINGP ERFORMED BY: BIANCA Lablee MorganOevbop3342 [address]Dublin [place] [id number] MICROALBUMINOrdered By: Syst em Asphalt Dauber on 01-29-2023 Albumin DL <= 20 mg/L (U) [Mass/Vol] mg/dL Normal [facility]; [facility] Work Phone: Comment on above: Verified by repeat analysis PATIENT WAS FASTINGP ERFORMED BY: BIANCA [facility] Szorny1944 [address] [place] [id number] Albumin/Creatinine (U) [Mass ratio] <11 Normal 0-29 [facility]; [facility] Work Phone: Comment on above: Normal: 0 - 29 Moder ately increased: 30 - 300 Severely increased: >300 PATIENT WAS FASTINGP ERFORMED BY: BIANCA [facility] Ddkxtn2232 [address] [place] [id number] Creatinine (U) [Mass/Vol] 27.2 mg/dL Normal [facility]; [facility] Work Phone: Comment on above: PATIENT WAS FASTINGP ERFORMED BY: BIANCA Effiepaolo MorganTbmcyx9817 [address] [place] [id number] TSH ([id number])Ordered By: [employer] m Asphalt Dauber on 01-29-2023 TSH Qn 1.360 {uIU/mL} Normal 0.450-4.50 0 [facility]; [facility] Work Phone: Comment on above: PATIENT WAS FASTINGP ERFORMED BY: BIANCA Morganlin6[address] [place] [id number] URINALYSIS, W/ MICRO ([id number]) Ordered By: Data Reporting Analyst on 01-29-2023 Appearance (U) Clear Normal Comprehens linh [facility]; [facility] Work Phone: Comment on above: PATIENT WAS FASTINGP ERFORMED BY: BIANCA Morganlin6[address] [place] [id number] Bilirubin Ql (U) Negative Normal Comprehe nsive Internal Medicine; [facility] Work Phone: Comment on above: PATIENT WAS FASTINGP ERFORMED BY: BIANCA Lablee MorganYlqbzx4932 [address] [place] [id number] Color (U) Yellow Normal [facility]; [facility] Work Phone: Comment on above: PATIENT WAS FASTINGP ERFORMED BY: BIANCA Lablee MorganJaldmr7203 [address] [place] [id number] Glucose Ql (U) Negative Normal Comprehens linh [facility]; [facility] Work Phone: Comment on above: PATIENT WAS FASTINGP ERFORMED BY: BIANCA [facility] Hvvwus4182 [address] [place] [id number] Hemoglobin Ql (U) Negative Normal Compreh ensive [facility]; [facility] Work Phone: Comment on above: PATIENT WAS FASTINGP ERFORMED BY: BIANCA Lablee MorganIepgfh5653 [address] [place] [id number] Ketones Ql (U) Negative Normal Comprehens linh [facility]; [facility] Work Phone: Comment on above: PATIENT WAS FASTINGP ERFORMED BY: BIANCA Sequeira6370 [facility] [facility] [id number] Leukocyte esterase Test strip Ql (U) Negative Normal [facility]; [facility] Work Phone: Comment on above: PATIENT WAS FASTINGP ERFORMED BY: BIANCA Sequeira6[address] [facility] [id number] Microscopic observation LM Nom (Urine sed) MICRON Normal [facility]; [facility] Work Phone: Comment on above: Microscopic follows if indicated. PATIENT WAS FASTINGP ERFORMED BY: BIANCA Sequeira6370 [facility] [id number] Microscopic observation LM Nom (Urine sed) See below: Normal [facility]; [facility] Work Phone: Comment on above: Microscopic was nathaniel cated and was performed. PATIENT WAS FASTINGP ERFORMED BY: BIANCA Sequeira6370 [facility] [id number] Nitrite Ql (U) Negative Normal Comprehens linh [facility]; [facility] Work Phone: Comment on above: PATIENT WAS FASTINGP ERFORMED BY: BIANCA Sequeira6370 [facility] [id number] pH (U) 7.5 [pH] Normal 5.0-7.5 [facility]; [facility] Work Phone: Comment on above: PATIENT WAS FASTINGP ERFORMED BY: BIANCA Morganlin6370 [facility] [id number] Protein Ql (U) Negative Normal Comprehens linh [facility]; [facility] Work Phone: Comment on above: PATIENT WAS FASTINGP ERFORMED BY: BIANCA Sequeira6370 [facility] [id number] Specific gravity (U) [Rel density] 1.010 1 Normal 1.005-1.03 0 [facility]; [facility] Work Phone: Comment on above: PATIENT WAS FASTINGP ERFORMED BY: [facility] Twfnrt4768 [facility] [id number] Urobilinogen (U) [Mass/Vol] 0.2 mg/dL Normal 0.2-1.0 [facility]; [facility] Work Phone: Comment on above: PATIENT WAS FASTINGP ERFORMED BY: [facility] Xgswzp4197 [facility] [id number] Basophil percentageOrdered B y: Dr. Santo on 11-02-2022 Chloride [Moles/Vol] 105 mmol/L 98-107 [facility] Glucose [Mass/Vol] 113 mg/dL 74-106 [facility] Comment on above: Fasting Glucose resu lt from 100 to 125 mg/dL suggests IMPAIRED HOMEOSTASIS per A.D.A. criteria. Potassium [Moles/Vol] 4.5 mmol/L 3.5-5.1 [facility] Sodium [Moles/Vol] 138 mmol/L 136-145 [facility] - Chemistry and C hemistry - challengeOrdered By: Dr. Santo on 11-02-2022 CO2 [Moles/Vol] 28.0 mmol/L 21.0-32.0 [facility] Urea nitrogen/Creatinine [Mass ratio] 14.9 mg/mg 10-20 [facility] No Panel InformationOrdered By: Dr. Santo on 11-02-2022 Estimated GFR (MDRD) Amer 70 mL/min >60 [facility] Comment on above: GFR Calc Estimated GFR (MDRD) Non-Af Amer 57 mL/min >60 [facility] Comment on above: Non- GFR Calc Serum or plasma calcium kiet urement (mass/volume)Ordered By: Dr. Santo on 11-02-2022 Calcium [Mass/Vol] 9.1 mg/dL 8.5-10.1 [facility] Serum or plasma creatinine m easurement (mass/volume)Ordered By: Dr. Santo on 11-02-2022 Creatinine [Mass/Vol] 1.34 mg/dL 0.70-1.30 [facility] Comment on above: The validity of the calculated GFR & GFRAA in patients over 70 years has not been determined. Clinical correlation is essential. Serum or plasma urea nitroge n measurement (mass/volume)Ordered By: Dr. Santo on 11-02-2022 Urea nitrogen [Mass/Vol] 20 mg/dL 7-18 [facility] Thin prep Papanicolaou smear with manual screeningOrdered By: Dr. Santo on 11-02-2022 Thin prep Papanicolaou smear with manual screening 5 5-15 [facility] CALCIFIDIOL (01917) VIT D 25 Ordered By: Data Reporting Analyst on 04-21-2022 25-hydroxyvitamin D [Mass/Vol] 81.2 ng/mL Normal 30.0-100.0 [facility]; [facility] Work Phone: Comment on above: Vitamin D deficiency has been defined by the [place] ofMedicine and an Endocrine Society practice guideline as alevel of serum 25-OH vitamin D less than 20 ng/mL (1,2).The Endocrine Society went on to further define vitamin Dinsufficiency as a level between 21 and 29 ng/mL (2).1. IOM ([place] of Medicine). 2010. Dietary reference intakes for calcium and D. [place]: The National Academies Press.2. Abraham MF, Robert NC, Seamus JOYNER, et al. Evaluation, treatment, and prevention of vitamin D deficiency: an Endocrine Society clinical practice guideline. JCEM. 2010; 96(7):1911-30. PATIENT WAS FASTINGP ERFORMED BY: [employer] [place] [id number] LIPID PANEL (41268)Ordered B y: Data Reporting Analyst on 04-21-2022 Cholesterol [Mass/Vol] 226 mg/dL Abnormal 100-199 Co [facility]; [facility] Work Phone: Comment on above: PATIENT WAS FASTINGP ERFORMED BY: [id number] [address] [place] [id number] Cholesterol in HDL [Mass/Vol] 67 mg/dL Normal [facility]; [facility] Work Phone: Comment on above: PATIENT WAS FASTINGP ERFORMED BY: MMIT70 [facility] [id number] Triglyceride [Mass/Vol] 78 mg/dL Normal 0-149 [facility]; [facility] Work Phone: Comment on above: PATIENT WAS FASTINGP ERFORMED BY: BIANCA [facility] Vthqyk0949 [facility] [id number] LIPID PANEL (28843) 14 mg/dL Normal 5-40 Compr ensive Internal Medicine; [facility] Work Phone: Comment on above: PATIENT WAS FASTINGP ERFORMED BY: [facility] Zrffze4429 [address] [facility] [id number] LIPID PANEL (46183) 145 mg/dL Abnormal 0-99 Compr ensive [facility] Medicine; [facility] Work Phone: Comment on above: PATIENT WAS FASTINGP ERFORMED BY: [facility] Dmjgvw7047 [facility] [id number] LIPID PANEL (83941) 2.2 {ratio} Normal 0.0-3.6 Comp [facility]; [facility] Work Phone: Comment on above: LDL/HDL Ratio Men Wo men 1/2 Avg.Risk 1.0 1.5 Avg.Risk 3.6 3.2 2X Avg.Risk 6.2 5.0 3X Avg.Risk 8.0 6.1 PATIENT WAS FASTINGP ERFORMED BY: [facility] Gzqtif6712 [facility] [id number] PSA (PROSTATE SPECIFIC ANTIG EN) (V76.44)Ordered By: Data Reporting Analyst on 04-21-2022 Prostate specific Ag [Mass/Vol] 0.9 ng/mL Normal 0.0-4.0 [facility]; [facility] Work Phone: Comment on above: Rupinder ECLIA methodol ogy. .According to the [place] [employer], Serum PSA shoulddecrease and remain [...] malignant disease. PATIENT WAS FASTINGP ERFORMED BY: [facility] Sbisdu5853 [address] [facility] [id number] Blood Glucose , Office ([phone])Ordered By: Licha Nur on 01-23-2022 Glucose Glucometer (BldC) [Moles/Vol] 98 1 Normal [facility]; [facility] Work Phone: HgA1C , Office ([phone])Ordere d By: Licha Nur on 01-23-2022 HbA1c (Bld) [Mass fraction] 5.3 % Normal 4.6 - 7.1 [facility]; [facility] Work Phone: Blood Glucose , Office ([phone])on 04-06-2021 Glucose Glucometer (BldC) [Moles/Vol] 88 1 Normal [facility]; [facility] Work Phone: CALCIFIDIOL (85726) VIT D 25 Ordered By: Data Reporting Analyst on 04-06-2021 25-hydroxyvitamin D [Mass/Vol] 69.7 ng/mL Normal 30.0-100.0 [facility]; [facility] Work Phone: Comment on above: Vitamin D deficiency has been defined by the [place] of[place]icine and an Endocrine Society practice guideline as alevel of serum 25-OH vitamin D less than 20 ng/mL (1,2).The Endocrine Society went on to further define vitamin Dinsufficiency as a level between 21 and 29 ng/mL (2).1. IOM ([place] of [place]). 2010. Dietary reference intakes for calcium and D. [place]: The National Academies Press.2. Abraham MF, Robert NC, Seamus JOYNER, et al. Evaluation, treatment, and prevention of vitamin D deficiency: an Endocrine Society clinical practice guideline. JCEM. 2010; 96(7):1911-30. PATIENT WAS FASTINGP ERFORMED BY: Sayah [facility] Irpkup7171 [address] [place] [id number] CBC W/AUTO DIFF WBC (82564)O rdered By: Data Reporting Analyst on 04-06-2021 Basophils (Bld) [#/Vol] 0.1 10*3/uL Normal 0.0-0.2 [facility]; [facility] Work Phone: Comment on above: PATIENT WAS FASTINGP ERFORMED BY: CB [facility] Agfkvm4194 [address] RoadDublin [place] [id number] Basophils/100 WBC (Bld) 1 % Normal C omprehensive Internal Medicine; [facility] Work Phone: Comment on above: PATIENT WAS FASTINGP ERFORMED BY: CB [facility] Dcnvbe5135 [address] RoadDublin [place] [id number] Eosinophils (Bld) [#/Vol] 0.2 10*3/uL Normal 0.0-0.4 [facility]; [facility] Work Phone: Comment on above: PATIENT WAS FASTINGP ERFORMED BY: BIANCA [facility] Ubvtmp1331 [address] RoadDublin [place] [id number] Eosinophils/100 WBC (Bld) 3 % Normal [facility]; [facility] Work Phone: Comment on above: PATIENT WAS FASTINGP ERFORMED BY: BIANCA [facility] Grcmuk7026 [address] RoadDublin [place] [id number] Erythrocyte distribution width (RBC) [Ratio] 12.8 % Normal 11.6-15.4 [facility]; [facility] Work Phone: Comment on above: PATIENT WAS FASTINGP ERFORMED BY: CB [facility] Vrvpue6348 [address] RoadDublin [place] [id number] Hematocrit (Bld) [Volume fraction] 44.5 % Normal 37.5-51.0 [facility]; [facility] Work Phone: Comment on above: PATIENT WAS FASTINGP ERFORMED BY: CB [facility] Omnfvj1820 [address] RoadDublin [place] [id number] Hemoglobin (Bld) [Mass/Vol] 14.5 g/dL Normal 13.0-17.7 [facility]; [facility] Work Phone: Comment on above: PATIENT WAS FASTINGP ERFORMED BY: CB [facility] Hengzl2181 [address] RoadDublin [place] [id number] Immature granulocytes (Bld) [#/Vol] 0.0 10*3/uL Normal 0.0-0.1 [facility]; [facility] Work Phone: Comment on above: PATIENT WAS FASTINGP ERFORMED BY: BIANCA MaximinoLee MorganGejbel[address] [facility] [place] [id number] Immature granulocytes/100 WBC (Bld) 1 % Normal [facility]; [facility] Work Phone: Comment on above: PATIENT WAS FASTINGP ERFORMED BY: BIANCA LabLee MorganFbqfeb8882 [facility] [id number] Lymphocytes (Bld) [#/Vol] 1.1 10*3/uL Normal 0.7-3.1 [facility]; [facility] Work Phone: Comment on above: PATIENT WAS FASTINGP ERFORMED BY: BIANCA Morganlin6370 [facility] [id number] Lymphocytes/100 WBC (Bld) 19 % Normal [facility]; [facility] Work Phone: Comment on above: PATIENT WAS FASTINGP ERFORMED BY: BIANCA Morganlin6370 [facility] [id number] MCH (RBC) [Entitic mass] 29.5 pg Normal 26.6-33.0 [facility]; [facility] Work Phone: Comment on above: PATIENT WAS FASTINGP ERFORMED BY: BIANCA LabF[facility]6370 [facility] [id number] MCHC (RBC) [Mass/Vol] 32.6 g/dL Normal 31.5-35.7 [facility] prehensive Internal Medicine; [facility] Work Phone: Comment on above: PATIENT WAS FASTINGP ERFORMED BY: BIANCA LabCopa[facility] Zrrjen4222 [facility] [id number] MCV (RBC) [Entitic vol] 91 fL Normal 79-97 C omprehensive Internal Medicine; [facility] Work Phone: Comment on above: PATIENT WAS FASTINGP ERFORMED BY: BIANCA Sequeira6[address]Dublin [place] [id number] Monocytes (Bld) [#/Vol] 0.5 10*3/uL Normal 0.1-0.9 [facility]; [facility] Work Phone: Comment on above: PATIENT WAS FASTINGP ERFORMED BY: BIANCA Morganlin6370 [address] [place] [id number] Monocytes/100 WBC (Bld) 7 % Normal C omprehensive [facility]; [facility] Work Phone: Comment on above: PATIENT WAS FASTINGP ERFORMED BY: BIANCA LabCopaolo MorganPfjdnp4785 [address] RoadDublin [place] [id number] Neutrophils (Bld) [#/Vol] 4.2 10*3/uL Normal 1.4-7.0 [facility]; [facility] Work Phone: Comment on above: PATIENT WAS FASTINGP ERFORMED BY: BIANCA Rocío Sequeira6[address] [place] [id number] Neutrophils/100 WBC (Bld) 69 % Normal [facility]; [facility] Work Phone: Comment on above: PATIENT WAS FASTINGP ERFORMED BY: BIANCA LabLee Sequeira6[address] [place] [id number] Platelets (Bld) [#/Vol] 252 10*3/uL Normal 150-450 [facility]; [facility] Work Phone: Comment on above: PATIENT WAS FASTINGP ERFORMED BY: BIANCA LabCopa[facility] Ucesac0890 [address]Dublin [place] [id number] RBC (Bld) [#/Vol] 4.91 10*6/uL Normal 4.14-5.80 Compr ehensive Internal Medicine; [facility] Work Phone: Comment on above: PATIENT WAS FASTINGP ERFORMED BY: BIANCA LabCopaolo MorganRmxhdn2292 [address] RoadDublin [place] [id number] WBC (Bld) [#/Vol] 6.1 10*3/uL Normal 3.4-10.8 Compre [facility]; [facility] Work Phone: Comment on above: PATIENT WAS FASTINGP ERFORMED BY: CB [facility] Kfcfik0099 [address]Dublin [place] [id number] HgA1C , Office ([id number])Ordere d By: Charlie Dhillon on 04-06-2021 HbA1c (Bld) [Mass fraction] 5.2 % Normal 4.6 - 7.1 [facility]; [facility] Work Phone: LIPID PANEL (11659)Ordered B y: Data Reporting Analyst on 04-06-2021 Cholesterol [Mass/Vol] 255 mg/dL Abnormal 100-199 Co mprensive Internal Medicine; [facility] Work Phone: Comment on above: PATIENT WAS FASTINGP ERFORMED BY: CB [facility] Gwozcb6615 [address] RoadDublin [place] [id number] Cholesterol in HDL [Mass/Vol] 70 mg/dL Normal [facility]; [facility] Work Phone: Comment on above: PATIENT WAS FASTINGP ERFORMED BY: CB [facility] Bapajr4586 [address] RoadDublin [place] [id number] Triglyceride [Mass/Vol] 93 mg/dL Normal 0-149 C omprehensive Internal Medicine; [facility] Work Phone: Comment on above: PATIENT WAS FASTINGP ERFORMED BY: CB [facility] Pceail2161 [address]Dublin [place] [id number] LIPID PANEL (95851) 16 mg/dL Normal 5-40 Compr ehensive Internal Medicine; [facility] Work Phone: Comment on above: PATIENT WAS FASTINGP ERFORMED BY: CB [facility] Oprekt1099 [address]Dublin [place] [id number] LIPID PANEL (86924) 169 mg/dL Abnormal 0-99 Compr ehensive Internal Medicine; [facility] Work Phone: Comment on above: PATIENT WAS FASTINGP ERFORMED BY: CB [facility] Rqsjad9633 [address] RoadDublin [place] [id number] LIPID PANEL (93442) 2.4 {ratio} Normal 0.0-3.6 Comp rehensive Internal Medicine; [facility] Work Phone: Comment on above: LDL/HDL Ratio Men Wo men 1/2 Avg.Risk 1.0 1.5 Avg.Risk 3.6 3.2 2X Avg.Risk 6.2 5.0 3X Avg.Risk 8.0 6.1 PATIENT WAS FASTINGP ERFORMED BY: BIANCA LabCopa[facility] Bdpgbt65[address] [facility] [place] [id number] MAGNESIUM (00400)Ordered By: Data Reporting Analyst on 04-06-2021 Magnesium [Mass/Vol] 2.1 mg/dL Normal 1.6-2.3 [facility] Internal [facility]; [facility] Work Phone: Comment on above: PATIENT WAS FASTINGP ERFORMED BY: BIANCA [facility] Fxtrrd4675 [address] [facility] [place] [id number] METABOLIC PANEL, COMPREHENSI VE (84300)Ordered By: Data Reporting Analyst on 04-06-2021 Albumin [Mass/Vol] 3.9 g/dL Normal 3.8-4.9 [facility] Internal Medicine; [facility] Work Phone: Comment on above: PATIENT WAS FASTINGP ERFORMED BY: BIANCA LabSt[facility] Bdgbfg5620 [address] [facility]in [place] [id number] Albumin/Globulin [Mass ratio] 1.3 {ratio} Normal 1.2-2.2 [facility]; [facility] Work Phone: Comment on above: PATIENT WAS FASTINGP ERFORMED BY: BIANCA [facility] Dweyff5413 [facility] [id number] ALP [Catalytic activity/Vol] 64 U/L Normal 48-121 [facility]; [facility] Work Phone: Comment on above: PATIENT WAS FASTINGP ERFORMED BY: BIANCA [facility] Kfzsdh6437 [address] [facility] [place] [id number] ALT [Catalytic activity/Vol] 27 U/L Normal 0-44 [facility]; [facility] Work Phone: Comment on above: PATIENT WAS FASTINGP ERFORMED BY: BIANCA [facility] Cevxyh65[address] [facility] [place] [id number] AST [Catalytic activity/Vol] 17 U/L Normal 0-40 [facility]; [facility] Work Phone: Comment on above: PATIENT WAS FASTINGP ERFORMED BY: BIANAC MaximinoSt. [facility] Awezhf7387 [address] [facility] [id number] Bilirubin [Mass/Vol] 0.4 mg/dL Normal 0.0-1.2 [facility] rehensive Internal Medicine; [facility] Work Phone: Comment on above: PATIENT WAS FASTINGP ERFORMED BY: [facility]6[address]Stan[address] [place] [id number] Calcium [Mass/Vol] 9.7 mg/dL Normal 8.6-10.2 [facility] Internal Medicine; [facility] Work Phone: Comment on above: PATIENT WAS FASTINGP ERFORMED BY: [facility] Nsteun5059 [facility] [id number] Chloride [Moles/Vol] 102 mmol/L Normal 96-106 [facility]; [facility] Work Phone: Comment on above: PATIENT WAS FASTINGP ERFORMED BY: [facility]6370 [facility]in [place] [id number] CO2 [Moles/Vol] 26 mmol/L Normal 20-29 [facility]; [facility] Work Phone: Comment on above: PATIENT WAS FASTINGP ERFORMED BY: [facility]6370 [facility] [id number] Creatinine [Mass/Vol] 0.89 mg/dL Normal 0.76-1.27 [facility]; [facility] Work Phone: Comment on above: PATIENT WAS FASTINGP ERFORMED BY: [facility]6370 [facility] [id number] GFR/1.73 sq M.predicted among blacks CKD-EPI (S/P/Bld) [Vol rate/Area] 107 mL/min/1.73 Normal [facility]; [facility] Work Phone: Comment on above: [facility] currently reports eGFR in compliance with the current recommendations of the National Kidney Foundation. [facility] will update reporting as new guidelines are published from the NKF-ASN Task force. PATIENT WAS FASTINGP ERFORMED BY: [facility] Wnhmuv1384 [facility] [id number] GFR/1.73 sq M.predicted among non-blacks CKD-EPI (S/P/Bld) [Vol rate/Area] 93 mL/min/1.73 Normal [facility]; [facility] Work Phone: Comment on above: PATIENT WAS FASTINGP ERFORMED BY: [facility]6370 [facility] [id number] Globulin (S) [Mass/Vol] 2.9 g/dL Normal 1.5-4.5 C omprehensive Internal Medicine; [facility] Work Phone: Comment on above: PATIENT WAS FASTINGP ERFORMED BY: [facility]6370 [facility] [id number] Glucose [Mass/Vol] 92 mg/dL Normal 65-99 [facility] hensive [facility]; [facility] Work Phone: Comment on above: PATIENT WAS FASTINGP ERFORMED BY: [facility]6370 [facility] [id number] Potassium [Moles/Vol] 4.6 mmol/L Normal 3.5-5.2 [facility] prehensive Internal Medicine; [facility] Work Phone: Comment on above: PATIENT WAS FASTINGP ERFORMED BY: [facility]6370 [facility] [id number] Protein [Mass/Vol] 6.8 g/dL Normal 6.0-8.5 [facility] hensive [facility]; [facility] Work Phone: Comment on above: PATIENT WAS FASTINGP ERFORMED BY: [facility]6370 [facility] [id number] Sodium [Moles/Vol] 140 mmol/L Normal 134-144 [facility] hensive [facility]; [facility] Work Phone: Comment on above: PATIENT WAS FASTINGP ERFORMED BY: [employer] Wcajkl[address] [facility]in [place] [id number] Urea nitrogen [Mass/Vol] 17 mg/dL Normal 8-27 [facility]; [facility] Work Phone: Comment on above: PATIENT WAS FASTINGP ERFORMED BY: [facility] Kpdtkr1400 [address] [facility] [id number] Urea nitrogen/Creatinine [Mass ratio] 19 mg/mg Normal 10-24 [facility]; [facility] Work Phone: Comment on above: PATIENT WAS FASTINGP ERFORMED BY: [facility] Rpcmpu2079 [address] [facility] [id number] PSA (PROSTATE SPECIFIC ANTIG EN) (V76.44)Ordered By: Data Reporting Analyst on 04-06-2021 Prostate specific Ag [Mass/Vol] 0.7 ng/mL Normal 0.0-4.0 [facility]; [facility] Work Phone: Comment on above: Rupinder ECLIA methodol ogy. .According to the [place] [employer], Serum PSA shoulddecrease and remain [...] malignant disease. PATIENT WAS FASTINGP ERFORMED BY: [employer] Qrdgnw1895 [facility] [id number] TSH ([id number])Ordered By: [employer] m Asphalt Dauber on 04-06-2021 TSH Qn 1.420 {uIU/mL} Normal 0.450-4.50 0 [facility]; [facility] Work Phone: Comment on above: PATIENT WAS FASTINGP ERFORMED BY: [facility] Ixcjfd6[address] [facility] [place] [id number] URINALYSIS ([id number])Ordered By : Data Reporting Analyst on 04-06-2021 Appearance (U) Clear Normal Comprehens linh Internal Medicine; [facility] Work Phone: Comment on above: PATIENT WAS FASTINGP ERFORMED BY: BIANCA [facility] Tbslho0066 [address] RoadDublin [place] [id number] Bilirubin Ql (U) Negative Normal Comprehe nsive Internal Medicine; [facility] Work Phone: Comment on above: PATIENT WAS FASTINGP ERFORMED BY: BIANCA [facility] Npsmjp4721 [address] RoadDublin [place] [id number] Color (U) Yellow Normal [facility]; [facility] Work Phone: Comment on above: PATIENT WAS FASTINGP ERFORMED BY: BIANCA [facility] Apzjcq1152 [address] RoadDublin [place] [id number] Glucose Ql (U) Negative Normal Comprehens linh Internal Medicine; [facility] Work Phone: Comment on above: PATIENT WAS FASTINGP ERFORMED BY: BIANCA [facility] Awbcpf8705 [address] RoadDublin [place] [id number] Hemoglobin Ql (U) Negative Normal Compreh ensive Internal Medicine; [facility] Work Phone: Comment on above: PATIENT WAS FASTINGP ERFORMED BY: BIANCA [facility] Bqnexo4932 [address] RoadDublin [place] [id number] Ketones Ql (U) Negative Normal Comprehens linh Internal Medicine; [facility] Work Phone: Comment on above: PATIENT WAS FASTINGP ERFORMED BY: BIANCA [facility] Ctynda7715 [address] RoadDublin [place] [id number] Leukocyte esterase Test strip Ql (U) Negative Normal [facility]; [facility] Work Phone: Comment on above: PATIENT WAS FASTINGP ERFORMED BY: BIANCA [facility] Wtoomi0991 [address] RoadDublin [place] [id number] Microscopic observation LM Nom (Urine sed) MICNIP Normal [facility]; [facility] Work Phone: Comment on above: Microscopic not nathaniel cated and not performed. PATIENT WAS FASTINGP ERFORMED BY: BIANCA [facility] Ipqihg2397 [address] RoadDublin [place] [id number] Nitrite Ql (U) Negative Normal Comprehens linh Internal Medicine; [facility] Work Phone: Comment on above: PATIENT WAS FASTINGP ERFORMED BY: BIANCA LabLee Sequeira6[address]Dublin [place] [id number] pH (U) 6.5 [pH] Normal 5.0-7.5 [facility]; [facility] Work Phone: Comment on above: PATIENT WAS FASTINGP ERFORMED BY: BIANCA [facility] Khmody1171 [address] RoadDublin [place] [id number] Protein Ql (U) Negative Normal Comprehens linh Internal Medicine; [facility] Work Phone: Comment on above: PATIENT WAS FASTINGP ERFORMED BY: BIANCA [facility] Hhocrs7164 [address] RoadDublin [place] [id number] Specific gravity (U) [Rel density] 1.022 1 Normal 1.005-1.03 0 [facility]; [facility] Work Phone: Comment on above: PATIENT WAS FASTINGP ERFORMED BY: BIANCA LabYurirp Jcpcpu6132 [address]Dublin [place] [id number] Urobilinogen (U) [Mass/Vol] 0.2 mg/dL Normal 0.2-1.0 [facility]; [facility] Work Phone: Comment on above: PATIENT WAS FASTINGP ERFORMED BY: BIANCA [facility] Glnaey6520 [address] RoadDublin [place] [id number] CALCIFEDIOL (48792)Ordered B y: Data Reporting Analyst on 11-22-2020 25-Hydroxyvitamin D2+25-Hydroxyvitamin D3 [Mass/Vol] 64.8 ng/mL Normal 30.0-100.0 [facility]; [facility] Work Phone: Comment on above: Vitamin D deficiency has been defined by the [place] of[place]icine and an Endocrine Society practice guideline as alevel of serum 25-OH vitamin D less than 20 ng/mL (1,2).The Endocrine Society went on to further define vitamin Dinsufficiency as a level between 21 and 29 ng/mL (2).1. IOM ([place] of [employer]). 2010. Dietary reference intakes for calcium and D. [place]: The National Academies Press.2. Abraham MF, Robert MOREIRA, Seamus JOYNER, et al. Evaluation, treatment, and prevention of vitamin D deficiency: an Endocrine Society clinical practice guideline. JCEM. 2010; 96(7):1911-30. Test(s) 254747-IGH-X ; 005555-SYK-S; 835148-Kiufznpiznwdc; 110088-Kkmtaalsxko, Total; 631039-AOP-F (Total); 511037-Dlgkw LDL-P; 785186-SSW Size; 611372-IH-CM Scorewas developed and its performance characteristics determinedby [employer]. It has not been cleared or approved by the Foodand Drug Administration.PATIENT WAS FASTINGPERFORMED BY: [employer] [place] [address] [id number] BY: [employer] [place] [id number] CBC with auto diff (24620)Or dered By: Data Reporting Analyst on 11-22-2020 Basophils (Bld) [#/Vol] 0.1 {x10E3/uL} Normal 0.0-0.2 [facility]; [facility] Work Phone: Comment on above: Test(s) 930165-XTB-W ; 301822-YZW-N; 849584-Jjkddfgtcfwha; 595244-Orzywbmwsks, Total; 730552-QUO-H (Total); 676008-Gitnp LDL-P; 602492-KHG Size; 533835-VU-QT Scorewas developed and its performance characteristics determinedby [employer]. It has not been cleared or approved by the Foodand Drug Administration.PATIENT WAS FASTINGPERFORMED BY: MoveEZ[address] [id number] BY: [facility] [id number] Basophils (Bld) [#/Vol] 0.1 10*3/uL Normal 0.0-0.2 [facility]; [facility] Work Phone: Comment on above: Test(s) 626869-CIU-L ; 764413-XZA-B; 094346-Ibphqbbkzgaem; 003882-Okrjwrebvab, Total; 860852-CIE-B (Total); 474968-Tkvpe LDL-P; 161180-KAH Size; 098720-GL-AH Scorewas developed and its performance characteristics determinedby [employer]. It has not been cleared or approved by the Foodand Drug Administration.PATIENT WAS FASTINGPERFORMED BY: [facility] [address] [id number] BY: [employer]70 [facility] [id number] Basophils/100 WBC (Bld) 2 % Normal C omprehensive [facility]; [facility] Work Phone: Comment on above: Test(s) 696670-ENG-S ; 864614-PFT-B; 746736-Lyaopcakuupwl; 423608-Exbeovqtaxh, Total; 696421-VEJ-O (Total); 642987-Lhthd LDL-P; 984376-HMO Size; 966496-GA-TF Scorewas developed and its performance characteristics determinedby [employer]. It has not been cleared or approved by the Foodand Drug Administration.PATIENT WAS FASTINGPERFORMED BY: [facility] [address] [id number] BY: Zidisha6370 [facility] [id number] Eosinophils (Bld) [#/Vol] 0.4 {x10E3/uL} Normal 0.0-0.4 [facility]; [facility] Work Phone: Comment on above: Test(s) 212170-SUR-T ; 056517-IWQ-C; 085321-Mnlytxfaxlqyi; 987176-Wnkebjerapj, Total; 943691-OSR-W (Total); 970141-Nzpgm LDL-P; 710275-SMY Size; 678152-KZ-LJ Scorewas developed and its performance characteristics determinedby [employer]. It has not been cleared or approved by the Foodand Drug Administration.PATIENT WAS FASTINGPERFORMED BY: [facility] [address] [id number] BY: [place] SevenMatheny Medical and Educational CenterFasxqe1935 [facility] [id number] Eosinophils (Bld) [#/Vol] 0.4 10*3/uL Normal 0.0-0.4 [facility]; [facility] Work Phone: Comment on above: Test(s) 429402-ZDX-J ; 394389-MQK-W; 140653-Mrlezcobqwcfm; 825708-Srdbfqkcflq, Total; 233530-WWA-G (Total); 782375-Ltcdw LDL-P; 630535-MOH Size; 895704-RD-HJ Scorewas developed and its performance characteristics determinedby [employer]. It has not been cleared or approved by the Foodand Drug Administration.PATIENT WAS FASTINGPERFORMED BY: [facility] [address] [id number] BY: Zidisha6370 [facility] [id number] Eosinophils/100 WBC (Bld) 9 % Normal [facility]; [facility] Work Phone: Comment on above: Test(s) 628826-WJW-W ; 814278-XRC-M; 257519-Kihfuhrbhlayi; 271576-Zxpszavmmdq, Total; 063295-VBK-H (Total); 233953-Lqofm LDL-P; 006384-RQS Size; 807101-TD-KP Scorewas developed and its performance characteristics determinedby [employer]. It has not been cleared or approved by the Foodand Drug Administration.PATIENT WAS FASTINGPERFORMED BY: Blackwood Seven[address] [id number] BY: [facility] SevenMatheny Medical and Educational CenterPkstdn5401 [facility] [id number] Erythrocyte distribution width (RBC) [Ratio] 12.4 % Normal 11.6-15.4 [facility]; [facility] Work Phone: Comment on above: Test(s) 961033-SJL-F ; 144492-GRO-S; 116767-Bgkmvlgqppfiu; 322761-Pcvsqmmmndh, Total; 336577-QKS-W (Total); 325148-Kgtky LDL-P; 995791-ZIG Size; 666626-MZ-MY Scorewas developed and its performance characteristics determinedby [employer]. It has not been cleared or approved by the Foodand Drug Administration.PATIENT WAS FASTINGPERFORMED BY: Blackwood Seven[address] [id number] BY: Blackwood Seven Bkeolr1264 [facility] abcdexpertsAlleghany Health [id number] Hematocrit (Bld) [Volume fraction] 43.3 % Normal 37.5-51.0 [facility]; [facility] Work Phone: Comment on above: Test(s) 529650-AJM-O ; 598161-VEQ-R; 259152-Sqpdlxdzxxafa; 857080-Slvjkqodfqn, Total; 440598-IEF-Y (Total); 223544-Vjcve LDL-P; 308386-MOE Size; 746742-KJ-XS Scorewas developed and its performance characteristics determinedby [employer]. It has not been cleared or approved by the Foodand Drug Administration.PATIENT WAS FASTINGPERFORMED BY: [facility] [address] [id number] BY: Krugle Toxxwp4090 [facility] [id number] Hemoglobin (Bld) [Mass/Vol] 14.4 g/dL Normal 13.0-17.7 [facility]; [facility] Work Phone: Comment on above: Test(s) 937548-RCA-L ; 263403-ANR-Z; 230307-Jzdqrdaexnwqh; 573567-Zfmwjqrehpd, Total; 970801-UOH-M (Total); 173238-Gmvuj LDL-P; 337062-RVT Size; 377304-OV-MA Scorewas developed and its performance characteristics determinedby [employer]. It has not been cleared or approved by the Foodand Drug Administration.PATIENT WAS FASTINGPERFORMED BY: 36Kr [address] [id number] BY: Krugle Fshsls2455 [facility] [id number] Immature granulocytes (Bld) [#/Vol] 0.0 {x10E3/uL} Normal 0.0-0.1 [facility]; [facility] Work Phone: Comment on above: Test(s) 975928-EUB-O ; 226334-WMV-E; 162969-Dunrijbhlkuhb; 587740-Cnrfnazfcfm, Total; 206647-WLN-S (Total); 616419-Rrrwo LDL-P; 237553-FJL Size; 259331-RB-RL Scorewas developed and its performance characteristics determinedby [employer]. It has not been cleared or approved by the Foodand Drug Administration.PATIENT WAS FASTINGPERFORMED BY: [facility] [address] [id number] BY: [employer]70 ncycloAlleghany Health [id number] Immature granulocytes (Bld) [#/Vol] 0.0 10*3/uL Normal 0.0-0.1 [facility]; [facility] Work Phone: Comment on above: Test(s) 337531-KTU-K ; 490166-JQG-B; 031834-Iesvtveofvzin; 371965-Tjfzwtbpbcj, Total; 256514-CWW-F (Total); 153697-Xizqj LDL-P; 529319-UHX Size; 947126-GF-DS Scorewas developed and its performance characteristics determinedby [employer]. It has not been cleared or approved by the Foodand Drug Administration.PATIENT WAS FASTINGPERFORMED BY: [facility] [address] [id number] BY: Zidisha6370 [facility] [id number] Immature granulocytes/100 WBC (Bld) 0 % Normal [facility]; [facility] Work Phone: Comment on above: Test(s) 226837-UQD-G ; 864194-JMU-X; 054138-Xqbrnnkpdmtpf; 414621-Xylibjfplgz, Total; 564198-NRP-L (Total); 248638-Qrtxv LDL-P; 903896-XIP Size; 538948-MH-ZW Scorewas developed and its performance characteristics determinedby [employer]. It has not been cleared or approved by the Foodand Drug Administration.PATIENT WAS FASTINGPERFORMED BY: Blackwood Seven[address] [id number] BY: [place] SevenCarlsbad Medical CenterUcsryg0206 [facility] [id number] Lymphocytes (Bld) [#/Vol] 1.3 {x10E3/uL} Normal 0.7-3.1 [facility]; [facility] Work Phone: Comment on above: Test(s) 592019-SWS-O ; 383411-WUX-F; 783053-Urdjcaceogxtm; 569138-Xtuviimoziz, Total; 997143-APO-P (Total); 115588-Oaxcn LDL-P; 527050-UID Size; 840651-QY-YR Scorewas developed and its performance characteristics determinedby [employer]. It has not been cleared or approved by the Foodand Drug Administration.PATIENT WAS FASTINGPERFORMED BY: [facility] [address] [id number] BY: Blackwood Seven Mfataq8297 [facility] [id number] Lymphocytes (Bld) [#/Vol] 1.3 10*3/uL Normal 0.7-3.1 [facility]; [facility] Work Phone: Comment on above: Test(s) 595181-JEF-E ; 273667-DTB-L; 740084-Fjhstvloyryez; 290670-Xpgnufncquu, Total; 852194-IWQ-U (Total); 621501-Ybjso LDL-P; 610019-URZ Size; 871899-OA-AX Scorewas developed and its performance characteristics determinedby [employer]. It has not been cleared or approved by the Foodand Drug Administration.PATIENT WAS FASTINGPERFORMED BY: Blackwood Seven[address] [id number] BY: Earlier [employer]6370 [facility] [id number] Lymphocytes/100 WBC (Bld) 30 % Normal [facility]; [facility] Work Phone: Comment on above: Test(s) 022168-QIP-N ; 894824-IJS-U; 297898-Axlyditapaopl; 381383-Aqhjknilypn, Total; 431886-GBK-B (Total); 206899-Ditoc LDL-P; 113870-FZQ Size; 104389-IC-SI Scorewas developed and its performance characteristics determinedby [facility]. It has not been cleared or approved by the Foodand Drug Administration.PATIENT WAS FASTINGPERFORMED BY: MoveEZ[address] [id number] BY: [employer]70 [facility] [id number] MCH (RBC) [Entitic mass] 29.3 pg Normal 26.6-33.0 [facility]; [facility] Work Phone: Comment on above: Test(s) 297446-VAN-A ; 718525-MFH-R; 010298-Rqglsvubcjghu; 768638-Toigquxlgkx, Total; 627886-QNE-H (Total); 809007-Wwema LDL-P; 491870-KEQ Size; 207311-QL-IV Scorewas developed and its performance characteristics determinedby [employer]. It has not been cleared or approved by the Foodand Drug Administration.PATIENT WAS FASTINGPERFORMED BY: [facility] [address] [id number] BY: Zidisha6370 [facility] [id number] MCHC (RBC) [Mass/Vol] 33.3 g/dL Normal 31.5-35.7 [facility] prehensive Internal Medicine; [facility] Work Phone: Comment on above: Test(s) 065748-HLI-B ; 807610-MDW-E; 895797-Enisbdwmavmhl; 232459-Ynptsucejxt, Total; 008134-JHA-N (Total); 244383-Cvazi LDL-P; 681904-EDG Size; 095109-KV-LB Scorewas developed and its performance characteristics determinedby [employer]. It has not been cleared or approved by the Foodand Drug Administration.PATIENT WAS FASTINGPERFORMED BY: [facility] [address] [id number] BY: Blackwood Seven Ohwxna5200 [facility] [id number] MCV (RBC) [Entitic vol] 88 fL Normal 79-97 C o[facility]rehens[facility]; [facility] Work Phone: Comment on above: Test(s) 386334-NQA-I ; 282579-LWQ-K; 154519-Awxfluruflfas; 773744-Rdirlietdzr, Total; 924294-IKF-J (Total); 828664-Druar LDL-P; 877799-EIH Size; 891333-NA-ZT Scorewas developed and its performance characteristics determinedby [employer]. It has not been cleared or approved by the Foodand Drug Administration.PATIENT WAS FASTINGPERFORMED BY: [facility] [address] [id number] BY: Zidisha6370 [facility] [id number] Monocytes (Bld) [#/Vol] 0.3 {x10E3/uL} Normal 0.1-0.9 [facility]; [facility] Work Phone: Comment on above: Test(s) 390597-TRX-D ; 317440-UWI-V; 354019-Mwkblhkemncoq; 085747-Qafrycxzkss, Total; 066081-BPJ-T (Total); 098251-Qgvfa LDL-P; 750647-FKD Size; 310801-IK-PD Scorewas developed and its performance characteristics determinedby [employer]. It has not been cleared or approved by the Foodand Drug Administration.PATIENT WAS FASTINGPERFORMED BY: 36Kr [address] [id number] BY: [place] SevenMatheny Medical and Educational CenterRobjpg5827 [facility] [id number] Monocytes (Bld) [#/Vol] 0.3 10*3/uL Normal 0.1-0.9 [facility]; [facility] Internal Medicine Work Phone: Comment on above: Test(s) 305504-XYE-W ; 472451-EIF-T; 467103-Yrzifgjdxvwxk; 654379-Gehqiahwqvi, Total; 051722-NHI-G (Total); 290280-Tjogv LDL-P; 992066-WBX Size; 717726-ZA-YJ Scorewas developed and its performance characteristics determinedby [employer]. It has not been cleared or approved by the Foodand Drug Administration.PATIENT WAS FASTINGPERFORMED BY: [facility] [address] [id number] BY: [employer]70 eMarCritical access hospital [id number] Monocytes/100 WBC (Bld) 7 % Normal [facility] Internal [facility]; [facility] Work Phone: Comment on above: Test(s) 306010-NOU-Q ; 999260-OOZ-P; 957580-Gdqmmxwzbicbv; 650311-Ajzevqhgopw, Total; 994147-CKP-F (Total); 532135-Yrkbp LDL-P; 944006-PBM Size; 418835-TL-UK Scorewas developed and its performance characteristics determinedby [employer]. It has not been cleared or approved by the Foodand Drug Administration.PATIENT WAS FASTINGPERFORMED BY: [facility] [address] [id number] BY: Zidisha6370 [facility] [id number] Neutrophils (Bld) [#/Vol] 2.4 {x10E3/uL} Normal 1.4-7.0 [facility]; [facility] Work Phone: Comment on above: Test(s) 632398-ITR-U ; 251431-ITN-Q; 388565-Zhnppcyvzvmog; 093602-Vvhozupieir, Total; 784541-JTP-M (Total); 085605-Bqufh LDL-P; 878708-XUG Size; 015174-EZ-YQ Scorewas developed and its performance characteristics determinedby [employer]. It has not been cleared or approved by the Foodand Drug Administration.PATIENT WAS FASTINGPERFORMED BY: [facility] [address] [id number] BY: Krugle Plhfkj0332 eMarCritical access hospital [id number] Neutrophils (Bld) [#/Vol] 2.4 10*3/uL Normal 1.4-7.0 [facility]; [facility] Work Phone: Comment on above: Test(s) 760845-FMY-B ; 924008-AJC-D; 297268-Edvzsxiewkyqo; 342563-Rrpenrkvpml, Total; 442145-MUI-C (Total); 901352-Dmvck LDL-P; 257755-NHF Size; 253734-GE-OW Scorewas developed and its performance characteristics determinedby [employer]. It has not been cleared or approved by the Foodand Drug Administration.PATIENT WAS FASTINGPERFORMED BY: MoveEZ[address] [id number] BY: Zidisha6370 [place] abcdexpertsAlleghany Health [id number] Neutrophils/100 WBC (Bld) 52 % Normal [facility]; [facility] Work Phone: Comment on above: Test(s) 845879-RCT-M ; 753595-KLD-U; 433214-Ixkegpqkvffzi; 690268-Gfrzvbozexh, Total; 385599-FAQ-C (Total); 706237-Exwkn LDL-P; 910288-ETV Size; 053027-XE-VJ Scorewas developed and its performance characteristics determinedby [facility]. It has not been cleared or approved by the Foodand Drug Administration.PATIENT WAS FASTINGPERFORMED BY: [facility] [address] [id number] BY: coRanklin6370 [facility] [id number] Platelets (Bld) [#/Vol] 263 {x10E3/uL} Normal 150-450 [facility]; [facility] Work Phone: Comment on above: Test(s) 920474-ZTW-E ; 093414-CIF-F; 840683-Gsnmumnxbcjyh; 246634-Srclhunhtqm, Total; 276072-NET-Z (Total); 775037-Nwrxb LDL-P; 698840-WFD Size; 605820-WE-RB Scorewas developed and its performance characteristics determinedby [employer]. It has not been cleared or approved by the Foodand Drug Administration.PATIENT WAS FASTINGPERFORMED BY: [facility] [address] [id number] BY: GOQii70 [facility] [id number] Platelets (Bld) [#/Vol] 263 10*3/uL Normal 150-450 [facility]; [facility] Work Phone: Comment on above: Test(s) 314453-VXU-L ; 231963-DQR-Q; 336156-Kpesehmjbxkjp; 687138-Ucxmdhtwpsc, Total; 252451-KRI-S (Total); 579230-Gfsfp LDL-P; 783433-PVM Size; 540570-RJ-ZA Scorewas developed and its performance characteristics determinedby [employer]. It has not been cleared or approved by the Foodand Drug Administration.PATIENT WAS FASTINGPERFORMED BY: [facility] [address] [id number] BY: Zidisha6370 [facility] [id number] RBC (Bld) [#/Vol] 4.92 {x10E6/uL} Normal 4.14-5.80 [facility] Internal Medicine; [facility] Work Phone: Comment on above: Test(s) 832060-YGE-Q ; 415488-BLU-J; 374258-Ahqmbzopsaykb; 976296-Tmfmyljoooc, Total; 679796-IZW-N (Total); 848062-Cpccx LDL-P; 943572-RIF Size; 359666-RO-KD Scorewas developed and its performance characteristics determinedby [employer]. It has not been cleared or approved by the Foodand Drug Administration.PATIENT WAS FASTINGPERFORMED BY: BN [facility] Ugkigcyskr3731 [facility] [id number] BY: Blackwood SevenMatheny Medical and Educational CenterDutsjw8442 [facility] [id number] RBC (Bld) [#/Vol] 4.92 10*6/uL Normal 4.14-5.80 [facility] ehensive Internal Medicine; [facility] Work Phone: Comment on above: Test(s) 452985-NZM-E ; 167444-DAC-H; 325792-Tdufyzmamxpbu; 760952-Enbhilpybup, Total; 396569-PYZ-V (Total); 066578-Gufcm LDL-P; 033731-DRA Size; 577790-VW-GY Scorewas developed and its performance characteristics determinedby [employer]. It has not been cleared or approved by the Foodand Drug Administration.PATIENT WAS FASTINGPERFORMED BY: [facility] [address] [id number] BY: Zidisha6370 [facility] [id number] WBC (Bld) [#/Vol] 4.5 {x10E3/uL} Normal 3.4-10.8 [facility]; [facility] Work Phone: Comment on above: Test(s) 798185-HXG-X ; 072697-EMK-A; 637694-Vsytwjnstmtpq; 879829-Pxsbfggwgtz, Total; 654018-JYN-I (Total); 703970-Asgug LDL-P; 886136-ZIN Size; 316321-VH-LP Scorewas developed and its performance characteristics determinedby [employer]. It has not been cleared or approved by the Foodand Drug Administration.PATIENT WAS FASTINGPERFORMED BY: [facility] [address] [id number] BY: [employer] Xoprva7992 [facility] [id number] WBC (Bld) [#/Vol] 4.5 10*3/uL Normal 3.4-10.8 [facility]; [facility] Work Phone: Comment on above: Test(s) 555447-SBB-C ; 751755-PMW-S; 763726-Baepyhljgbjmd; 837509-Zzrwznxbbeb, Total; 907812-ZUB-L (Total); 975522-Linld LDL-P; 354905-TVR Size; 649153-IO-ZH Scorewas developed and its performance characteristics determinedby [employer]. It has not been cleared or approved by the Foodand Drug Administration.PATIENT WAS FASTINGPERFORMED BY: MoveEZ[address] [id number] BY: Zidisha6370 [facility] [id number] HGB A1C (84476)Ordered By: S ystem Asphalt Dauber on 11-22-2020 HbA1c (Bld) [Mass fraction] 5.7 % Abnormal 4.8-5.6 [facility]; [facility] Work Phone: Comment on above: . Prediabetes: 5.7 - 6.4 Diabetes: >6.4 Glycemic control for adults with diabetes: <7.0 Test(s) 217779-PPP-H ; 132925-KNO-V; 189472-Uvapvxmspuhlo; 943732-Pnaxglmkniw, Total; 095987-JAZ-Z (Total); 963532-Vwwtn LDL-P; 463107-DQN Size; 119936-NK-QX Scorewas developed and its performance characteristics determinedby [employer]. It has not been cleared or approved by the Foodand Drug Administration.PATIENT WAS FASTINGPERFORMED BY: [facility] [address] [id number] BY: [employer] Uakyka8854 [facility] [id number] METABOLIC PANEL, COMPREHENSI VE (41313)Ordered By: Data Reporting Analyst on 11-22-2020 Albumin [Mass/Vol] 4.4 g/dL Normal 3.8-4.9 [facility] Internal Medicine; [facility] Work Phone: Comment on above: Test(s) 600627-BLZ-G ; 642426-WFI-Z; 516832-Ovjyefdznyhhb; 167567-Lgsellokzzk, Total; 898984-MDJ-R (Total); 025904-Lauas LDL-P; 092869-ZSX Size; 199398-BT-HR Scorewas developed and its performance characteristics determinedby [employer]. It has not been cleared or approved by the Foodand Drug Administration.PATIENT WAS FASTINGPERFORMED BY: Protein Bar[address] [id number] BY: Krugle Qsqmpq7574 eMarCritical access hospital [id number] Albumin/Globulin [Mass ratio] 1.8 {ratio} Normal 1.2-2.2 [facility]; [facility] Work Phone: Comment on above: Test(s) 043595-UEU-E ; 492767-SQJ-F; 626507-Vavpnyytocwji; 595006-Mxvsnfhpnhg, Total; 855811-PNJ-B (Total); 984024-Miyjj LDL-P; 030210-JOO Size; 077827-QG-HZ Scorewas developed and its performance characteristics determinedby [employer]. It has not been cleared or approved by the Foodand Drug Administration.PATIENT WAS FASTINGPERFORMED BY: [facility] [address] [id number] BY: Zidisha6370 eMarCritical access hospital [id number] ALP [Catalytic activity/Vol] 64 [iU]/L Normal 39-117 [facility]; [facility] Work Phone: Comment on above: Test(s) 707268-IHE-F ; 404113-HVD-X; 872969-Gquxxhcawuqnk; 597795-Votnjehacky, Total; 315787-JYY-O (Total); 920237-Eldln LDL-P; 119187-VBU Size; 211185-YP-RL Scorewas developed and its performance characteristics determinedby [employer]. It has not been cleared or approved by the Foodand Drug Administration.PATIENT WAS FASTINGPERFORMED BY: Blackwood Seven[address] [id number] BY: Krugle Dxuofp2937 Valero RoadAlleghany Health [id number] ALP [Catalytic activity/Vol] 64 U/L Normal 39-117 [facility]; [facility] Work Phone: Comment on above: Test(s) 195097-NPF-W ; 015119-CUV-W; 675396-Davxssirjpijg; 981577-Hxiswnopdlv, Total; 978077-XWD-F (Total); 047586-Ucgyj LDL-P; 137963-DPS Size; 057578-UK-ZN Scorewas developed and its performance characteristics determinedby [employer]. It has not been cleared or approved by the Foodand Drug Administration.PATIENT WAS FASTINGPERFORMED BY: Blackwood Seven[address] [id number] BY: KrugleCarlsbad Medical CenterLafbdx[address] [place] [address] [id number] ALT [Catalytic activity/Vol] 26 [iU]/L Normal 0-44 [facility]; [facility] Work Phone: Comment on above: Test(s) 145931-TKU-H ; 126190-HVY-I; 973233-Habhenmluqoen; 737310-Unczdcxbaol, Total; 323456-GEV-C (Total); 842535-Cdqwd LDL-P; 042430-CES Size; 496025-NO-IB Scorewas developed and its performance characteristics determinedby [employer]. It has not been cleared or approved by the Foodand Drug Administration.PATIENT WAS FASTINGPERFORMED BY: Blackwood Seven[address] [id number] BY: Blackwood SevenMatheny Medical and Educational CenterQosljo2764 [facility] [id number] ALT [Catalytic activity/Vol] 26 U/L Normal 0-44 [facility]; [facility] Work Phone: Comment on above: Test(s) 880988-BNI-F ; 222394-NCQ-Y; 464141-Qqnlzuwtsttao; 092476-Amwpcnmxkwq, Total; 561773-KMM-K (Total); 788129-Asspx LDL-P; 840412-OZC Size; 196259-KP-ML Scorewas developed and its performance characteristics determinedby [employer]. It has not been cleared or approved by the Foodand Drug Administration.PATIENT WAS FASTINGPERFORMED BY: Blackwood Seven[address] [id number] BY: Blackwood SevenMatheny Medical and Educational CenterCviyze6273 [facility] [id number] AST [Catalytic activity/Vol] 19 [iU]/L Normal 0-40 [facility]; [facility] Work Phone: Comment on above: Test(s) 801506-TII-P ; 537103-JYK-U; 899649-Tmfsjwmxntfxb; 435817-Gpikomfxljn, Total; 238243-MEP-F (Total); 349881-Ujorq LDL-P; 547639-PNE Size; 123867-AX-TR Scorewas developed and its performance characteristics determinedby [employer]. It has not been cleared or approved by the Foodand Drug Administration.PATIENT WAS FASTINGPERFORMED BY: [facility] [address] [id number] BY: Blackwood SevenRyan [place] [id number] [facility] [id number] AST [Catalytic activity/Vol] 19 U/L Normal 0-40 [facility]; [facility] Work Phone: Comment on above: Test(s) 861311-GVI-L ; 018109-CBK-Y; 344414-Lkklzfzbtfylz; 783688-Inarksxzmsp, Total; 983517-TUF-E (Total); 242263-Uzjkq LDL-P; 164124-SSO Size; 781337-PV-MG Scorewas developed and its performance characteristics determinedby [employer]. It has not been cleared or approved by the Foodand Drug Administration.PATIENT WAS FASTINGPERFORMED BY: Blackwood Seven[address] [id number] BY: Blackwood SevenMatheny Medical and Educational CenterWrytsp6205 [facility] [id number] Bilirubin [Mass/Vol] 0.4 mg/dL Normal 0.0-1.2 Comp rehensive Internal Medicine; [facility] Work Phone: Comment on above: Test(s) 665166-BXI-N ; 500605-HXG-V; 686679-Omwvryvknqkbg; 683365-Xzymmywcasu, Total; 338967-ETN-G (Total); 169272-Eviuq LDL-P; 135185-JYV Size; 830747-PV-AG Scorewas developed and its performance characteristics determinedby [employer]. It has not been cleared or approved by the Foodand Drug Administration.PATIENT WAS FASTINGPERFORMED BY: [facility] [address] [id number] BY: [employer]70 [facility] [id number] Calcium [Mass/Vol] 9.5 mg/dL Normal 8.6-10.2 [facility] Internal Medicine; [facility] Work Phone: Comment on above: Test(s) 901431-UKY-J ; 567880-DPU-E; 671874-Gyseirngbdqvq; 522940-Axeowckqrwa, Total; 859414-LDZ-P (Total); 301160-Xdvcz LDL-P; 768118-TUS Size; 343030-CW-HR Scorewas developed and its performance characteristics determinedby [employer]. It has not been cleared or approved by the Foodand Drug Administration.PATIENT WAS FASTINGPERFORMED BY: [facility] [address] [id number] BY: Zidisha6370 [facility] [id number] Chloride [Moles/Vol] 103 mmol/L Normal 96-106 [facility] Internal Medicine; [facility] Work Phone: Comment on above: Test(s) 494867-DZK-W ; 833840-WMS-D; 167696-Vrihwonizhbbx; 647796-Mbuoimimyqe, Total; 091495-VGU-R (Total); 306911-Abaao LDL-P; 314176-TYS Size; 648620-SA-NZ Scorewas developed and its performance characteristics determinedby [employer]. It has not been cleared or approved by the Foodand Drug Administration.PATIENT WAS FASTINGPERFORMED BY: [facility] [address] [id number] BY: Zidisha6370 [facility] [id number] CO2 [Moles/Vol] 27 mmol/L Normal 20-29 [facility]; [facility] Work Phone: Comment on above: Test(s) 228068-KSF-A ; 718686-LLE-Z; 532247-Dkmxwjrxsozrz; 916852-Mgbtturwrgg, Total; 770174-AFH-F (Total); 652256-Dzckn LDL-P; 718980-XQP Size; 089659-XK-OD Scorewas developed and its performance characteristics determinedby [employer]. It has not been cleared or approved by the Foodand Drug Administration.PATIENT WAS FASTINGPERFORMED BY: [facility] [address] [id number] BY: Zidisha6370 [facility] [id number] Creatinine [Mass/Vol] 0.92 mg/dL Normal 0.76-1.27 [facility] prehensive Internal Medicine; [facility] Work Phone: Comment on above: Test(s) 468819-FKP-S ; 440169-SXZ-Z; 721374-Ygrflxxkrrosw; 119418-Xcdwekhhfss, Total; 524885-NWK-G (Total); 021707-Pavuo LDL-P; 861462-NJK Size; 039185-UJ-HA Scorewas developed and its performance characteristics determinedby [employer]. It has not been cleared or approved by the Foodand Drug Administration.PATIENT WAS FASTINGPERFORMED BY: [facility] [address] [id number] BY: Zidisha6370 [facility] [id number] GFR/1.73 sq M predicted among blacks CKD-EPI (S/P/Bld) [Vol rate/Area] 104 mL/min/1.73 Normal [facility]; [facility] Work Phone: Comment on above: Test(s) 965520-YAV-V ; 794056-QCV-D; 505864-Oxidbrayjwibd; 777414-Njrzxgcqclo, Total; 503427-XIC-R (Total); 091053-Bqyoc LDL-P; 961128-SRC Size; 069735-BD-TL Scorewas developed and its performance characteristics determinedby [employer]. It has not been cleared or approved by the Foodand Drug Administration.PATIENT WAS FASTINGPERFORMED BY: [facility] [address] [id number] BY: [employer] [id number] [facility] [id number] GFR/1.73 sq M predicted among non-blacks CKD-EPI (S/P/Bld) [Vol rate/Area] 90 mL/min/1.73 Normal [facility]; [facility] Work Phone: Comment on above: Test(s) 549886-RWA-U ; 788523-FUG-J; 741378-Xeagzznnccese; 407890-Dbcsoebejbc, Total; 416280-MPF-L (Total); 024906-Bsqmf LDL-P; 938628-GLM Size; 311610-NA-GU Scorewas developed and its performance characteristics determinedby [employer]. It has not been cleared or approved by the Foodand Drug Administration.PATIENT WAS FASTINGPERFORMED BY: [facility] [address] [id number] BY: 36Kr Wrrzjv4473 [facility] [id number] Globulin (S) [Mass/Vol] 2.4 g/dL Normal 1.5-4.5 C omprehensive Internal Medicine; [facility] Work Phone: Comment on above: Test(s) 067509-AXK-H ; 140228-GVT-S; 186075-Hxheeinfrpoxp; 208783-Eohloedwsot, Total; 746704-CIT-M (Total); 385176-Dmxao LDL-P; 056370-AWL Size; 788693-OP-JY Scorewas developed and its performance characteristics determinedby [employer]. It has not been cleared or approved by the Foodand Drug Administration.PATIENT WAS FASTINGPERFORMED BY: [facility] [address] [id number] BY: Krugle Yxgzwt8974 eMarCritical access hospital [id number] Glucose [Mass/Vol] 96 mg/dL Normal 65-99 [facility] Internal Medicine; [facility] Work Phone: Comment on above: Test(s) 151393-YUZ-P ; 838181-YJN-F; 286335-Bhnpfbkfxbgqa; 497346-Xxzbgcpovgs, Total; 743556-NVQ-I (Total); 562596-Pslpd LDL-P; 671233-CKF Size; 900890-RU-XH Scorewas developed and its performance characteristics determinedby [employer]. It has not been cleared or approved by the Foodand Drug Administration.PATIENT WAS FASTINGPERFORMED BY: [facility] [address] [id number] BY: Zidisha6370 eMarCritical access hospital [id number] Potassium [Moles/Vol] 4.6 mmol/L Normal 3.5-5.2 [facility] Internal Medicine; [facility] Work Phone: Comment on above: Test(s) 587348-LGT-A ; 847991-KAV-R; 919584-Dxxsednobxphr; 795313-Ndxzavmhgmh, Total; 219714-EPV-I (Total); 330291-Mfaze LDL-P; 527149-LHY Size; 178565-KA-GM Scorewas developed and its performance characteristics determinedby [employer]. It has not been cleared or approved by the Foodand Drug Administration.PATIENT WAS FASTINGPERFORMED BY: [facility] [address] [id number] BY: Krugle Pcbdju8173 [facility] [id number] Protein [Mass/Vol] 6.8 g/dL Normal 6.0-8.5 [facility] Internal Medicine; [facility] Work Phone: Comment on above: Test(s) 573801-BRM-A ; 601920-XXH-E; 812709-Kwziauxzzdurk; 032402-Tkxvbzsestl, Total; 078512-MGD-H (Total); 299752-Toyas LDL-P; 201580-HAD Size; 708577-DY-TB Scorewas developed and its performance characteristics determinedby [employer]. It has not been cleared or approved by the Foodand Drug Administration.PATIENT WAS FASTINGPERFORMED BY: [facility] [address] [id number] BY: [employer]70 [facility] [id number] Sodium [Moles/Vol] 140 mmol/L Normal 134-144 [facility] Internal Medicine; [facility] Work Phone: Comment on above: Test(s) 944935-WFR-G ; 898171-MQE-U; 164475-Ejxzvxmuzmxgt; 658349-Dpnaxlgftnh, Total; 199980-AEI-O (Total); 095805-Shmcr LDL-P; 726716-TGP Size; 264526-PL-VO Scorewas developed and its performance characteristics determinedby [employer]. It has not been cleared or approved by the Foodand Drug Administration.PATIENT WAS FASTINGPERFORMED BY: [facility] [address] [id number] BY: [employer]70 [facility] [id number] Urea nitrogen [Mass/Vol] 16 mg/dL Normal 8-27 [facility] Internal Medicine; [facility] Work Phone: Comment on above: Test(s) 305220-SIK-P ; 319307-DBS-I; 114692-Ioponmyhyhofb; 392106-Ffvgcquecqf, Total; 490876-QBA-Q (Total); 117500-Ekosd LDL-P; 782675-PBN Size; 270122-UH-DY Scorewas developed and its performance characteristics determinedby [employer]. It has not been cleared or approved by the Foodand Drug Administration.PATIENT WAS FASTINGPERFORMED BY: [facility] [address] [id number] BY: [employer]70 [facility] [id number] Urea nitrogen/Creatinine [Mass ratio] 17 mg/mg Normal 10-24 [facility]; [facility] Work Phone: Comment on above: Test(s) 843364-KFO-N ; 765907-MQH-P; 881389-Odjyxqjaukarl; 067957-Ojtceqsilfo, Total; 633717-GYA-M (Total); 617633-Enenz LDL-P; 717193-VZH Size; 933732-QG-ZN Scorewas developed and its performance characteristics determinedby [employer]. It has not been cleared or approved by the Foodand Drug Administration.PATIENT WAS FASTINGPERFORMED BY: MoveEZ[address] [id number] BY: [employer]70 [facility] [id number] MICROALBUMINOrdered By: Syst em Asphalt Dauber on 11-22-2020 Albumin DL <= 20 mg/L (U) [Mass/Vol] mg/dL Normal [facility]; [facility] Work Phone: Comment on above: Test(s) 467143-WQA-I ; 210373-MVH-S; 753992-Iodaqpgjoomqm; 276255-Kbodqichiof, Total; 205898-MPU-O (Total); 712100-Mazcz LDL-P; 363048-PDI Size; 005847-ZR-UZ Scorewas developed and its performance characteristics determinedby [employer]. It has not been cleared or approved by the Foodand Drug Administration.PATIENT WAS FASTINGPERFORMED BY: [facility] [address] [id number] BY: Blackwood SevenMatheny Medical and Educational CenterBlgcjz2169 [facility] [id number] Albumin DL <= 20 mg/L (U) [Mass/Vol] mg/dL Normal [facility]; [facility] Work Phone: Comment on above: Test(s) 431123-IIL-E ; 866096-ZQP-S; 731662-Ahzksjedgkwzj; 333556-Lyailafnbln, Total; 990204-SYD-J (Total); 208217-Fxbtm LDL-P; 468821-FMO Size; 446151-JY-ZW Scorewas developed and its performance characteristics determinedby [employer]. It has not been cleared or approved by the Foodand Drug Administration.PATIENT WAS FASTINGPERFORMED BY: [facility] [address] [id number] BY: Blackwood Seven Xunfcd3504 [facility] [id number] Albumin/Creatinine (U) [Mass ratio] <6 Normal 0-29 [facility]; [facility] Work Phone: Comment on above: Normal: 0 - 29 Moder ately increased: 30 - 300 Severely increased: >300 Test(s) 321860-SNE-R ; 035339-ITW-E; 011609-Gnfwvuxknhary; 076516-Cxrwllwyakl, Total; 790267-FKZ-R (Total); 714674-Qqckj LDL-P; 068650-JTG Size; 501383-MJ-ZR Scorewas developed and its performance characteristics determinedby [employer]. It has not been cleared or approved by the Foodand Drug Administration.PATIENT WAS FASTINGPERFORMED BY: [facility] [address] [id number] BY: [employer]70 [facility] [id number] Creatinine (U) [Mass/Vol] 47.2 mg/dL Normal [facility]; [facility] Work Phone: Comment on above: Test(s) 655191-HVY-E ; 318193-IQH-J; 528276-Nflqsrvtnoayt; 617416-Uoosbrsihkr, Total; 033957-BXF-A (Total); 672073-Tuect LDL-P; 895001-UNC Size; 552707-SL-BG Scorewas developed and its performance characteristics determinedby [employer]. It has not been cleared or approved by the Foodand Drug Administration.PATIENT WAS FASTINGPERFORMED BY: [facility] [address] [id number] BY: [employer]70 [facility] [id number] NMR Profile (66294)Ordered B y: Data Reporting Analyst on 11-22-2020 Cholesterol [Mass/Vol] 235 mg/dL Abnormal 100-199 [facility]; [facility] Work Phone: Comment on above: Test(s) 492334-EWU-M ; 990726-NOC-Y; 004621-Yuryrwbqtovya; 544820-Amvmtyceser, Total; 743728-YUI-V (Total); 019578-Rcilo LDL-P; 162930-XBH Size; 884759-CQ-DB Scorewas developed and its performance characteristics determinedby [employer]. It has not been cleared or approved by the Foodand Drug Administration.PATIENT WAS FASTINGPERFORMED BY: [employer]1447 [facility] [id number] BY: [employer]70 [facility] [id number] Lipoprotein.alpha [Moles/Vol] 37.5 umol/L Normal [facility] Internal Medicine; [facility] Work Phone: Comment on above: Test(s) 197902-ZTF-E ; 277144-AHP-P; 933681-Ixedblzkecoyz; 003565-Xwcjkdbltbt, Total; 693485-ZIB-R (Total); 303758-Wzhlc LDL-P; 760393-QRF Size; 070665-WL-FX Scorewas developed and its performance characteristics determinedby [employer]. It has not been cleared or approved by the Foodand Drug Administration.PATIENT WAS FASTINGPERFORMED BY: MoveEZ[address] [id number] BY: Zidisha6370 [place] abcdexpertsAlleghany Health [id number] Lipoprotein.beta.subpar ticle [Entitic length] 21.3 nm Normal [facility]; [facility] Work Phone: [...] not afterLDL-P is taken into account. Test(s) 547448-NKB-N ; 261264-OEM-V; 182274-Wvwsjicstvfyt; 273605-Qxrbbluvsaa, Total; 691704-CLV-B (Total); 517268-Zuvgt LDL-P; 655966-DSZ Size; 511717-VR-ND Scorewas developed and its performance characteristics determinedby [employer]. It has not been cleared or approved by the Foodand Drug Administration.PATIENT WAS FASTINGPERFORMED BY: 36Kr [address] [id number] BY: 36Kr [address] [id number] Lipoprotein.beta.subpar ticle [Moles/Vol] 1803 nmol/L Abnormal [facility]; [facility] Work Phone: Comment on above: Low < 1000 Moderate 1000 - 1299 Borderline-High 1300 - 1599 High 1600 - 2000 Very High > 2000 Test(s) 531462-ZBV-X ; 077157-VQM-R; 708781-Wzbqnygktgcxq; 374284-Heerwmhfbye, Total; 823185-JLJ-W (Total); 204755-Ipjjb LDL-P; 921809-PKN Size; 606202-UQ-BH Scorewas developed and its performance characteristics determinedby [employer]. It has not been cleared or approved by the Foodand Drug Administration.PATIENT WAS FASTINGPERFORMED BY: [facility] [address] [id number] BY: Blackwood Seven Qbauad5425 [place] abcdexpertsAlleghany Health [id number] Lipoprotein.beta.subpar ticle.small [Moles/Vol] 534 nmol/L Abnormal Comprehe nsive Internal Medicine; [facility] Work Phone: Comment on above: Test(s) 974422-UBU-S ; 060309-RQZ-A; 059402-Axnuqkwwpjoud; 411149-Uwxrngzmkrm, Total; 793702-NHJ-R (Total); 689442-Yjxha LDL-P; 666632-OXO Size; 581378-WP-QP Scorewas developed and its performance characteristics determinedby [employer]. It has not been cleared or approved by the Foodand Drug Administration.PATIENT WAS FASTINGPERFORMED BY: [facility] [address] [id number] BY: Zidisha6370 [facility] [id number] Triglyceride [Mass/Vol] 92 mg/dL Normal 0-149 [facility]clevel[facility] hospitalensive Internal [facility]; [facility] Work Phone: Comment on above: Test(s) 338018-GNP-U ; 487127-WRR-L; 827350-Agannpjdpnlls; 368238-Whkpkeyjvso, Total; 736072-MEH-Y (Total); 764963-Tocto LDL-P; 631941-EMU Size; 844623-LD-JB Scorewas developed and its performance characteristics determinedby [employer]. It has not been cleared or approved by the Foodand Drug Administration.PATIENT WAS FASTINGPERFORMED BY: Protein Bar[address] [id number] BY: KrugleMatheny Medical and Educational CenterIxyzdj6133 [facility] [id number] NMR Profile (63025) 59 mg/dL Normal Compr ehensive Internal Medicine; [facility] Work Phone: Comment on above: Test(s) 760110-NEE-I ; 153893-OUH-K; 669675-Zjdefgbvmdwqa; 293502-Uhfkixxxhtr, Total; 704255-MOA-P (Total); 842977-Genlt LDL-P; 643305-UWI Size; 518568-QV-XQ Scorewas developed and its performance characteristics determinedby [employer]. It has not been cleared or approved by the Foodand Drug Administration.PATIENT WAS FASTINGPERFORMED BY: Blackwood Seven[address] [id number] BY: Blackwood SevenMatheny Medical and Educational CenterFomgqo6646 [facility] [id number] NMR Profile (40820) 160 mg/dL Abnormal 0-99 Compr ehensive Internal Medicine; [facility] Work Phone: Comment on above: . Optimal < 100 Abov e optimal 100 - 129 Borderline 130 - 159 High 160 - 189 Very high > 189 . Test(s) 788590-TRT-B ; 606952-CCZ-A; 140346-Fkjdfrmytuigu; 849530-Afvbfljvwuc, Total; 889791-JDO-U (Total); 241978-Fondx LDL-P; 123284-RFG Size; 117700-VU-JF Scorewas developed and its performance characteristics determinedby [employer]. It has not been cleared or approved by the Foodand Drug Administration.PATIENT WAS FASTINGPERFORMED BY: Blackwood Seven[address] [id number] BY: Blackwood SevenMatheny Medical and Educational CenterFqjjll1874 [facility] [id number] 2018 Novel Coronavirus (COVI D-19), TRISTAN ([id number])Ordered By: Data Reporting Analyst on 08-25-2020 2019 Novel Coronavirus (COVID-19), TRISTAN ([id number]) Detected Abnormal Comprehe nsive Internal Medicine; [facility] Work Phone: Comment on above: Client Requested Fla gThis nucleic acid amplification test was developed and its performancecharacteristics determined by [employer]. Nucleic acidamplification tests include PCR and TMA. [...] assay. PATIENT NOT FASTINGP ERFORMED BY: ALEX 36Kr [id number] [facility] [id number] 2018 Novel Coronavirus (COVID-19), TRISTAN ([id number]) Detected Abnormal Comprehe nsive Internal Medicine; [facility] Work Phone: Comment on above: Client Requested Fla gThis nucleic acid amplification test was developed and its performancecharacteristics determined by [employer]. Nucleic acidamplification tests include PCR and TMA. [...] this assay. PATIENT NOT FASTINGP ERFORMED BY: Blackwood Seven [id number] TAMI Head [facility] [id number] Inhouse FLU A+B DIRECT AG, ( RAPID) ([id number])on 08-25-2020 FLUAV+FLUBV Ag Ql (Unsp spec) Negative Normal [facility] Work Phone: Inhouse FLU A+B DIRECT AG, ( RAPID) ([id number])Ordered By: Bethanie Watson on 08-25-2020 FLUAV+FLUBV Ag Ql (Unsp spec) Negative Normal [facility]; [facility] Work Phone: NMR Profile (05775)Ordered B y: Data Reporting Analyst on 02-27-2020 Cholesterol [Mass/Vol] 157 mg/dL Normal 100-199 Co mprehensive Internal Medicine Work Phone: Comment on above: Test(s) 771026-NJM-W ; 341397-UYF-P; 136328-MBW-C; 490642-Dlvvngzsctbop; 208313-Cwxpeckydrp, Total; 578918-FPZ-S (Total);748584-Hyyay LDL-P; 321879-YLW Size; 289176-KW-MK Scorewas developed and its performance characteristics determinedby 36Kr. It has not been cleared or approved by the Foodand Drug Administration.PATIENT WAS FASTINGPERFORMED BY: 36Kr [address] [id number] Lipoprotein.alpha [Moles/Vol] 33.0 umol/L Normal [facility] Work Phone: Comment on above: Test(s) 845789-ROK-U ; 303682-ZPF-G; 905710-WLC-M; 740586-Ovcmgxcnckzcp; 729822-Xnsulhiuwyw, Total; 316093-VNR-Q (Total);388182-Gqbeh LDL-P; 776993-AMA Size; 391161-NO-TO Scorewas developed and its performance characteristics determinedby 36Kr. It has not been cleared or approved by the Foodand Drug Administration.PATIENT WAS FASTINGPERFORMED BY: 36Kr [address] [id number] Lipoprotein.beta.subpar ticle [Entitic length] 20.9 nm Normal [facility] Work Phone: Comment on above: [...] not afterLDL-P is taken into account. Test(s) 102660-KXF-N ; 295938-CET-L; 109256-FLU-Y; 206831-Mqricblagyxyj; 613882-Qqdfufzfpwz, Total; 774144-QXB-B (Total);548005-Rhfta LDL-P; 050677-MZC Size; 051480-VJ-ND Scorewas developed and its performance characteristics determinedby Blackwood Seven. It has not been cleared or approved by the Foodand Drug Administration.PATIENT WAS FASTINGPERFORMED BY: [facility] [id number] Lipoprotein.beta.subpar ticle [Moles/Vol] 912 nmol/L Normal [facility] Internal Medicine Work Phone: Comment on above: Low < 1000 Moderate 1000 - 1299 Borderline-High 1300 - 1599 High 1600 - 2000 Very High > 2000 Test(s) 929690-FMG-I ; 784088-IJB-N; 247121-VRM-L; 616841-Pztoxzwesihxj; 449648-Xtcdsunsnkm, Total; 745449-ZHN-O (Total);961396-Uxcuq LDL-P; 014906-KQK Size; 313875-GD-LX Scorewas developed and its performance characteristics determinedby 36Kr. It has not been cleared or approved by the Foodand Drug Administration.PATIENT WAS FASTINGPERFORMED BY: MoveEZ[address] [id number] Lipoprotein.beta.subpar ticle.small [Moles/Vol] 337 nmol/L Normal Comprehe nsive Internal Medicine Work Phone: Comment on above: Test(s) 998499-OBO-N ; 506363-NYD-I; 064215-XTT-I; 997855-Emziqztgruchi; 168320-Jiyjkctsrcz, Total; 061860-PVT-G (Total);451378-Brvxh LDL-P; 999602-NYU Size; 564822-PO-TN Scorewas developed and its performance characteristics determinedby 36Kr. It has not been cleared or approved by the Foodand Drug Administration.PATIENT WAS FASTINGPERFORMED BY: MoveEZ[address] [id number] Triglyceride [Mass/Vol] 85 mg/dL Normal 0-149 [facility]cle[facility]ensive Internal [facility] Work Phone: Comment on above: Test(s) 008028-XOQ-A ; 908502-UXD-U; 561795-LVS-D; 544528-Nkkeakgicbjrq; 257528-Rfqwjsyyoxr, Total; 521482-BFY-G (Total);194251-Dnwmb LDL-P; 751974-CDB Size; 670725-HO-YW Scorewas developed and its performance characteristics determinedby 36Kr. It has not been cleared or approved by the Foodand Drug Administration.PATIENT WAS FASTINGPERFORMED BY: [facility] [address] [id number] NMR Profile (69035) 82 mg/dL Normal 0-99 Compr ehensive Internal Medicine Work Phone: Comment on above: . Optimal < 100 Abov e optimal 100 - 129 Borderline 130 - 159 High 160 - 189 Very high > 189 .LDL-C is inaccurate if patient is non-fasting. Test(s) 750612-DLC-D ; 355365-HBF-K; 745150-QDH-U; 660600-Pcqcnedvnmhhc; 982145-Gasnfmelsws, Total; 813679-TPF-O (Total);927697-Kcgcg LDL-P; 005340-NJK Size; 489198-SD-DF Scorewas developed and its performance characteristics determinedby 36Kr. It has not been cleared or approved by the Foodand Drug Administration.PATIENT WAS FASTINGPERFORMED BY: [facility] [address] [id number] NMR Profile (89788) 58 mg/dL Normal [facility] Internal Medicine Work Phone: Comment on above: Test(s) 203543-KRW-G ; 681441-QAY-E; 606271-GFY-Z; 318558-Qhuopwxadrqqt; 157005-Isdkmehtege, Total; 783237-SIO-J (Total);987055-Wokbr LDL-P; 862909-SYG Size; 939678-FP-KQ Scorewas developed and its performance characteristics determinedby 36Kr. It has not been cleared or approved by the Foodand Drug Administration.PATIENT WAS FASTINGPERFORMED BY: [facility] [address] [id number] CALCIFIDIOL (27050) VIT D 25 Ordered By: Data Reporting Analyst on 11-12-2019 25-Hydroxyvitamin D2+25-Hydroxyvitamin D3 [Mass/Vol] 72.8 ng/mL Normal 30.0-100.0 [facility] Internal Medicine Work Phone: Comment on above: Vitamin D deficiency has been defined by the [place] of[facility] and an Endocrine Society practice guideline as alevel of serum 25-OH vitamin D less than 20 ng/mL (1,2).The Endocrine Society went on to further define vitamin Dinsufficiency as a level between 21 and 29 ng/mL (2).1. IOM ([place] [employer]). 2010. Dietary reference intakes for calcium and D. [place]: The National Academies Press.2. Abraham MF, Robert MOREIRA, Seamus JOYNER, et al. Evaluation, treatment, and prevention of vitamin D deficiency: an Endocrine Society clinical practice guideline. JCEM. 2010; 96(7):1911-30. Test(s) 181621-ZWT-B ; 249366-VQK-G; 060466-ZWZ-G; 311667-Vrsnmaozgbuti; 909944-Aqysavjgjtj, Total; 381354-HJK-U (Total);288756-Wyqfo LDL-P; 954416-BJT Size; 599240-UK-ST Scorewas developed and its performance characteristics determinedby 36Kr. It has not been cleared or approved by the Foodand Drug Administration.PATIENT WAS FASTINGPERFORMED BY: MoveEZ[address] [id number] BY: Quill ContentSaint [facility] [id number] CBC with auto diff (27502)Or dered By: Data Reporting Analyst on 11-12-2019 Basophils (Bld) [#/Vol] 0.1 {x10E3/uL} Normal 0.0-0.2 [facility] Work Phone: Comment on above: Test(s) 657994-ZTQ-J ; 298077-XUJ-U; 802658-LEU-S; 335512-Cxublsjrulsfc; 693390-Lhkmlzmnepf, Total; 621871-REM-T (Total);941539-Krxvn LDL-P; 385723-ISZ Size; 090362-PF-UI Scorewas developed and its performance characteristics determinedby 36Kr. It has not been cleared or approved by the Foodand Drug Administration.PATIENT WAS FASTINGPERFORMED BY: [facility] [address] [id number] BY: [employer]70 [facility]Saint [facility] [id number] Basophils (Bld) [#/Vol] 0.1 10*3/uL Normal 0.0-0.2 [facility]; [facility] Work Phone: Comment on above: Test(s) 552005-LCV-Y ; 730922-KFX-E; 321725-HDK-N; 460881-Emybcjivmfcum; 903101-Audzteixnik, Total; 790646-LQI-Z (Total);985254-Oymeu LDL-P; 594722-SSS Size; 985656-UI-GF Scorewas developed and its performance characteristics determinedby 36Kr. It has not been cleared or approved by the Foodand Drug Administration.PATIENT WAS FASTINGPERFORMED BY: [facility] [address] [id number] BY: [employer]70 [facility] [id number] Basophils/100 WBC (Bld) 1 % Normal [facility] Internal Medicine Work Phone: Comment on above: Test(s) 678994-ZJT-Y ; 663448-XGL-Q; 405124-AXJ-Y; 103110-Hogyoiqyqdvtw; 507857-Jzvfdiuwyhy, Total; 960509-RHH-G (Total);704523-Vumfl LDL-P; 348356-HQG Size; 756619-CG-DN Scorewas developed and its performance characteristics determinedby 36Kr. It has not been cleared or approved by the Foodand Drug Administration.PATIENT WAS FASTINGPERFORMED BY: [facility] [address] [id number] BY: Zidisha6370 [facility] [id number] Eosinophils (Bld) [#/Vol] 0.3 {x10E3/uL} Normal 0.0-0.4 [facility] Work Phone: Comment on above: Test(s) 826842-LHG-P ; 898065-YIW-U; 829880-XLK-J; 516878-Lciucyogkdnal; 016740-Ffoxheywwle, Total; 269053-BNV-E (Total);745349-Sonjm LDL-P; 795916-DVD Size; 527417-TH-XW Scorewas developed and its performance characteristics determinedby 36Kr. It has not been cleared or approved by the Foodand Drug Administration.PATIENT WAS FASTINGPERFORMED BY: BN LabCo[address] [id number] BY: Blackwood Seven Qccsmz7510 [facility] [id number] Eosinophils (Bld) [#/Vol] 0.3 10*3/uL Normal 0.0-0.4 [facility]; [facility] Work Phone: Comment on above: Test(s) 225467-HDA-X ; 092848-EMG-E; 528280-OBX-M; 164458-Hazcbphtmepiy; 538737-Rjbdsqqqyzx, Total; 325931-FZI-G (Total);928440-Myycm LDL-P; 202855-HQJ Size; 105493-DI-YW Scorewas developed and its performance characteristics determinedby 36Kr. It has not been cleared or approved by the Foodand Drug Administration.PATIENT WAS FASTINGPERFORMED BY: [facility] [address] [id number] BY: Zidisha6370 [facility] [id number] Eosinophils/100 WBC (Bld) 5 % Normal [facility] Work Phone: Comment on above: Test(s) 520951-INT-G ; 448166-DAC-C; 250662-OTI-B; 679614-Zhecfgmidxlrn; 229856-Qwibliowtpe, Total; 581671-JVN-X (Total);766513-Yinji LDL-P; 863014-VZF Size; 991709-TG-RN Scorewas developed and its performance characteristics determinedby 36Kr. It has not been cleared or approved by the Foodand Drug Administration.PATIENT WAS FASTINGPERFORMED BY: [facility] [address] [id number] BY: Krugle Xxkkdg1032 [facility] [id number] Erythrocyte distribution width (RBC) [Ratio] 12.2 % Normal 11.6-15.4 [facility] Work Phone: Comment on above: Test(s) 091723-NVB-U ; 399252-GGB-J; 260053-AVF-S; 653202-Kdcvflrzbwbjj; 277352-Ofejhyphxdb, Total; 311874-YPP-T (Total);433677-Jrrwx LDL-P; 421250-NSJ Size; 266194-XH-TR Scorewas developed and its performance characteristics determinedby 36Kr. It has not been cleared or approved by the Foodand Drug Administration.PATIENT WAS FASTINGPERFORMED BY: [facility] [address] [id number] BY: [employer] [id number] [facility] [id number] Hematocrit (Bld) [Volume fraction] 45.4 % Normal 37.5-51.0 [facility] Work Phone: Comment on above: Test(s) 281943-IXE-C ; 111314-LHU-W; 447442-LSG-K; 910545-Onpooigyevhzj; 434797-Vmxamxvpasl, Total; 184123-EPY-M (Total);334423-Ihvzc LDL-P; 066611-FXA Size; 145096-BR-TZ Scorewas developed and its performance characteristics determinedby 36Kr. It has not been cleared or approved by the Foodand Drug Administration.PATIENT WAS FASTINGPERFORMED BY: [facility] [address] [id number] BY: [employer] Jvhxir7071 [facility] [id number] Hemoglobin (Bld) [Mass/Vol] 14.6 g/dL Normal 13.0-17.7 [facility] Work Phone: Comment on above: Test(s) 947440-KOC-I ; 457518-XNG-R; 133925-LMX-Z; 590807-Vwfiyztdjakxe; 857711-Dxsfywxzmih, Total; 943444-HZK-F (Total);642436-Uowhg LDL-P; 375218-GCW Size; 377801-VO-TJ Scorewas developed and its performance characteristics determinedby 36Kr. It has not been cleared or approved by the Foodand Drug Administration.PATIENT WAS FASTINGPERFORMED BY: [facility] [address] [id number] BY: Blackwood SevenCarlsbad Medical CenterRjgucf3306 [facility] [id number] Immature granulocytes (Bld) [#/Vol] 0.0 {x10E3/uL} Normal 0.0-0.1 [facility] Work Phone: Comment on above: Test(s) 625089-UUU-R ; 229551-QCT-F; 104236-HSI-R; 247695-Thnnhlhlnyold; 866950-Ipzmldirkao, Total; 854333-CBZ-T (Total);812335-Oyxbi LDL-P; 257844-VMT Size; 616253-PK-RS Scorewas developed and its performance characteristics determinedby 36Kr. It has not been cleared or approved by the Foodand Drug Administration.PATIENT WAS FASTINGPERFORMED BY: [employer]Kr [address] [id number] BY: Zidisha6370 [facility] [id number] Immature granulocytes (Bld) [#/Vol] 0.0 10*3/uL Normal 0.0-0.1 [facility]; [facility] Work Phone: Comment on above: Test(s) 891356-QPR-C ; 907712-ZVZ-V; 695598-PSD-Q; 139417-Hmeraiqeipubo; 419167-Btzbyyspoug, Total; 729081-NRN-Y (Total);346328-Mzbxd LDL-P; 295635-XLW Size; 676211-BR-GU Scorewas developed and its performance characteristics determinedby 36Kr. It has not been cleared or approved by the Foodand Drug Administration.PATIENT WAS FASTINGPERFORMED BY: Blackwood Seven[address] [id number] BY: Blackwood SevenRyan [place] [id number] [facility] [id number] Immature granulocytes/100 WBC (Bld) 0 % Normal [facility] Work Phone: Comment on above: Test(s) 557570-UQX-H ; 365955-XQE-U; 074039-MSW-A; 624302-Trjnjiqawxylo; 519057-Brbnarinhpu, Total; 618023-XOU-X (Total);193599-Rihzk LDL-P; 050580-ILG Size; 401446-DT-EJ Scorewas developed and its performance characteristics determinedby 36Kr. It has not been cleared or approved by the Foodand Drug Administration.PATIENT WAS FASTINGPERFORMED BY: Blackwood Seven[address] [id number] BY: Blackwood SevenRyan [place] [id number] [facility] [id number] Lymphocytes (Bld) [#/Vol] 1.3 {x10E3/uL} Normal 0.7-3.1 [facility] Work Phone: Comment on above: Test(s) 097812-ENM-P ; 153437-CYO-O; 603387-ZXA-B; 272202-Khcggorbukxpe; 023617-Lrqqhdbscxf, Total; 564874-RWT-V (Total);827581-Kbyqs LDL-P; 942912-KGZ Size; 416255-TE-WT Scorewas developed and its performance characteristics determinedby 36Kr. It has not been cleared or approved by the Foodand Drug Administration.PATIENT WAS FASTINGPERFORMED BY: Blackwood Seven[address] [id number] BY: Blackwood SevenMatheny Medical and Educational CenterVmfjkg4968 [facility] [id number] Lymphocytes (Bld) [#/Vol] 1.3 10*3/uL Normal 0.7-3.1 [facility]; [facility] Work Phone: Comment on above: Test(s) 772383-DQM-X ; 890873-PSY-W; 622292-PKV-N; 877896-Bvcognoswvifo; 979909-Qytlvtwoabk, Total; 542326-DOG-T (Total);468585-Ozdzx LDL-P; 678377-JHR Size; 209152-YI-JI Scorewas developed and its performance characteristics determinedby 36Kr. It has not been cleared or approved by the Foodand Drug Administration.PATIENT WAS FASTINGPERFORMED BY: [facility] [address] [id number] BY: [employer]70 [address] abcdexpertsAlleghany Health [id number] Lymphocytes/100 WBC (Bld) 23 % Normal [facility] Work Phone: Comment on above: Test(s) 264371-QNK-F ; 520319-DGN-E; 100313-MBH-P; 816861-Dvluiufllflmk; 765545-Hzqgchgbncd, Total; 617044-LXE-E (Total);759761-Ugspj LDL-P; 577498-PTB Size; 073602-WI-NJ Scorewas developed and its performance characteristics determinedby 36Kr. It has not been cleared or approved by the EpiVax Drug Administration.PATIENT WAS FASTINGPERFORMED BY: [facility] [address] [id number] BY: [employer]70 [facility] [id number] MCH (RBC) [Entitic mass] 28.2 pg Normal 26.6-33.0 [facility] Internal Medicine Work Phone: Comment on above: Test(s) 506587-XMR-E ; 554150-YJY-W; 664480-DZP-L; 375608-Lbueiroblbnvl; 022966-Aajlorfhrrd, Total; 905956-TWI-C (Total);425101-Gmqjj LDL-P; 010851-IRV Size; 522438-GJ-HA Scorewas developed and its performance characteristics determinedby 36Kr. It has not been cleared or approved by the Foodand Drug Administration.PATIENT WAS FASTINGPERFORMED BY: [facility] [address] [id number] BY: coRanklin6370 [facility] [id number] MCHC (RBC) [Mass/Vol] 32.2 g/dL Normal 31.5-35.7 [facility] Internal Medicine Work Phone: Comment on above: Test(s) 286364-XRD-X ; 663466-PFI-U; 606074-LMZ-W; 490695-Branoagxhekgb; 322062-Ufyctbqxubw, Total; 271094-LDI-Y (Total);499988-Syian LDL-P; 823040-SPY Size; 150570-GG-MM Scorewas developed and its performance characteristics determinedby 36Kr. It has not been cleared or approved by the Foodand Drug Administration.PATIENT WAS FASTINGPERFORMED BY: [facility] [address] [id number] BY: [employer]70 [facility] [id number] MCV (RBC) [Entitic vol] 88 fL Normal 79-97 [facility] Internal Medicine Work Phone: Comment on above: Test(s) 521880-AYG-T ; 617972-RXL-V; 415906-UTK-I; 584105-Fxwtebquikctm; 540749-Dlesftvzoct, Total; 861903-JRK-G (Total);398213-Cbmcy LDL-P; 579519-ERI Size; 556300-GF-MT Scorewas developed and its performance characteristics determinedby 36Kr. It has not been cleared or approved by the Foodand Drug Administration.PATIENT WAS FASTINGPERFORMED BY: [facility] [address] [id number] BY: Zidisha6370 ValeroMineral Area Regional Medical CenterSkyfiberCritical access hospital [id number] Monocytes (Bld) [#/Vol] 0.4 {x10E3/uL} Normal 0.1-0.9 [facility] Work Phone: Comment on above: Test(s) 824268-IND-R ; 510373-LTX-J; 099522-HFC-A; 196965-Owkwigjijdwkk; 546754-Cxrxpmkyvpb, Total; 487280-AUE-T (Total);764211-Momhu LDL-P; 485853-YZK Size; 987453-HS-XS Scorewas developed and its performance characteristics determinedby 36Kr. It has not been cleared or approved by the Foodand Drug Administration.PATIENT WAS FASTINGPERFORMED BY: BN LabCo[address] [id number] BY: Blackwood SevenMatheny Medical and Educational CenterHzqras8832 [facility] [id number] Monocytes (Bld) [#/Vol] 0.4 10*3/uL Normal 0.1-0.9 [facility]; [facility] Internal Medicine Work Phone: Comment on above: Test(s) 532044-VWO-V ; 407263-PGZ-O; 015584-KPC-Q; 928878-Ehcfcymkebpog; 420188-Iqebeqsyvfg, Total; 587781-HEF-T (Total);378401-Lgsjl LDL-P; 188853-SAO Size; 236118-NZ-IW Scorewas developed and its performance characteristics determinedby 36Kr. It has not been cleared or approved by the Foodand Drug Administration.PATIENT WAS FASTINGPERFORMED BY: [facility] [address] [id number] BY: [email or web address] [facility] [id number] Monocytes/100 WBC (Bld) 7 % Normal [facility] Internal [facility] Work Phone: Comment on above: Test(s) 991730-WHQ-H ; 769852-TOQ-P; 331170-HRF-N; 924315-Wfaodqyfdzrpj; 373117-Tzubmdlqovs, Total; 316926-PYX-E (Total);257423-Juvoo LDL-P; 890431-IZT Size; 981853-PS-GB Scorewas developed and its performance characteristics determinedby 36Kr. It has not been cleared or approved by the Foodand Drug Administration.PATIENT WAS FASTINGPERFORMED BY: Protein Bar[address] [id number] BY: KrugleMatheny Medical and Educational CenterEqxufa8896 [facility] [id number] Neutrophils (Bld) [#/Vol] 3.5 {x10E3/uL} Normal 1.4-7.0 [facility] Internal Medicine Work Phone: Comment on above: Test(s) 895393-RKG-W ; 869660-KZW-K; 984747-BHY-M; 454956-Ixewppktgiiqm; 845200-Ukjhuuqvvfo, Total; 405711-CVP-O (Total);699365-Vbsgk LDL-P; 680132-BFA Size; 447081-HV-LA Scorewas developed and its performance characteristics determinedby 36Kr. It has not been cleared or approved by the Foodand Drug Administration.PATIENT WAS FASTINGPERFORMED BY: [facility] [address] [id number] BY: Blackwood SevenMatheny Medical and Educational CenterGsuhfy1396 [facility] [id number] Neutrophils (Bld) [#/Vol] 3.5 10*3/uL Normal 1.4-7.0 [facility]; [facility] Work Phone: Comment on above: Test(s) 413785-SQD-F ; 792157-PCS-N; 617673-HZL-B; 733228-Hzxmsuatvwqwg; 087548-Hqltpgjfagk, Total; 530175-MWV-C (Total);656005-Rwyur LDL-P; 346838-CDM Size; 588872-PG-TN Scorewas developed and its performance characteristics determinedby 36Kr. It has not been cleared or approved by the Foodand Drug Administration.PATIENT WAS FASTINGPERFORMED BY: [facility] [address] [id number] BY: [employer] Olzwxa6943 [facility] [id number] Neutrophils/100 WBC (Bld) 64 % Normal [facility] Work Phone: Comment on above: Test(s) 909403-YOM-L ; 553579-WAG-X; 464933-JVP-X; 286665-Phpppfrvxbjjv; 370846-Wqojnxjjwcy, Total; 161670-IQE-K (Total);472585-Kpglr LDL-P; 285886-MKK Size; 104595-IV-DC Scorewas developed and its performance characteristics determinedby 36Kr. It has not been cleared or approved by the Foodand Drug Administration.PATIENT WAS FASTINGPERFORMED BY: BN LabCo[address] [id number] BY: Krugle Awaywo8092 eMarCritical access hospital [id number] Platelets (Bld) [#/Vol] 281 {x10E3/uL} Normal 150-450 [facility] Internal Medicine Work Phone: Comment on above: Test(s) 909126-CCP-V ; 025788-PAV-E; 232156-PZF-K; 653184-Cufyvmawybjhs; 398528-Qvsfrkyssfo, Total; 975512-WWU-Z (Total);014296-Rjvnq LDL-P; 669015-DZG Size; 606988-LK-QY Scorewas developed and its performance characteristics determinedby 36Kr. It has not been cleared or approved by the Foodand Drug Administration.PATIENT WAS FASTINGPERFORMED BY: MoveEZ[address] [id number] BY: Zidisha6370 eMarCritical access hospital [id number] Platelets (Bld) [#/Vol] 281 10*3/uL Normal 150-450 [facility] Internal [facility]; [facility] Internal [facility] Work Phone: Comment on above: Test(s) 956925-HDY-R ; 274825-ODP-W; 540258-GMB-C; 603895-Nxzurjeywiyfw; 799372-Unsooievinq, Total; 036189-EYJ-W (Total);373472-Pkupn LDL-P; 626592-YMH Size; 019254-HI-NA Scorewas developed and its performance characteristics determinedby 36Kr. It has not been cleared or approved by the Foodand Drug Administration.PATIENT WAS FASTINGPERFORMED BY: [facility] [address] [id number] BY: Zidisha6370 eMarCritical access hospital [id number] RBC (Bld) [#/Vol] 5.18 {x10E6/uL} Normal 4.14-5.80 [facility] Internal Medicine Work Phone: Comment on above: Test(s) 292784-NNO-Q ; 739740-SHI-L; 551860-RGM-M; 297704-Psgnmtlviemzr; 990550-Ajgfrqbmtuk, Total; 104459-BBM-L (Total);724552-Brwms LDL-P; 173609-EHF Size; 721991-QC-GQ Scorewas developed and its performance characteristics determinedby 36Kr. It has not been cleared or approved by the Foodand Drug Administration.PATIENT WAS FASTINGPERFORMED BY: [facility] [address] [id number] BY: 36Kr Cyaamb0180 [facility] [id number] RBC (Bld) [#/Vol] 5.18 10*6/uL Normal 4.14-5.80 [facility] ehensive Internal Medicine; [facility] Work Phone: Comment on above: Test(s) 973556-BQG-Z ; 150627-VBD-F; 647480-PSV-Q; 326786-Zdzfoggeosmgi; 570998-Yqepeuyefyr, Total; 406484-XMP-C (Total);211700-Jyhqk LDL-P; 322261-FVG Size; 134905-OH-EI Scorewas developed and its performance characteristics determinedby 36Kr. It has not been cleared or approved by the Foodand Drug Administration.PATIENT WAS FASTINGPERFORMED BY: [facility] [address] [id number] BY: 36Kr Mureoe1455 [facility] [id number] WBC (Bld) [#/Vol] 5.5 {x10E3/uL} Normal 3.4-10.8 [facility] Work Phone: Comment on above: Test(s) 265573-YMS-U ; 039882-GWF-I; 498339-MVC-N; 907265-Tzaeeylfohdvc; 150510-Gojupkbguud, Total; 031468-OJJ-I (Total);320003-Yfswn LDL-P; 004307-QEV Size; 927255-QB-ZA Scorewas developed and its performance characteristics determinedby 36Kr. It has not been cleared or approved by the Foodand Drug Administration.PATIENT WAS FASTINGPERFORMED BY: Blackwood SevenSteven Ville 751307 [facility] [id number] BY: Blackwood SevenMatheny Medical and Educational CenterVxsywl9886 [facility] [id number] WBC (Bld) [#/Vol] 5.5 10*3/uL Normal 3.4-10.8 [facility] Internal Medicine; [facility] Work Phone: Comment on above: Test(s) 254799-NFS-S ; 370829-UKG-X; 702584-ZGO-A; 215896-Dazejftzvogsx; 952627-Iuajudzojyk, Total; 723804-UMQ-B (Total);749341-Ctrpq LDL-P; 246442-VFD Size; 900807-JN-DM Scorewas developed and its performance characteristics determinedby 36Kr. It has not been cleared or approved by the Foodand Drug Administration.PATIENT WAS FASTINGPERFORMED BY: 36Kr [address] [id number] BY: Blackwood SevenMatheny Medical and Educational CenterMnwavm6032 [facility] [id number] HgA1C , Office ([phone])Ordere d By: Licha Nur on 11-12-2019 HbA1c (Bld) [Mass fraction] 5.3 % Normal 4.6 - 7.1 [facility] Work Phone: METABOLIC PANEL, COMPREHENSI VE ([phone])Ordered By: Data Reporting Analyst on 11-12-2019 Albumin [Mass/Vol] 4.7 g/dL Normal 3.8-4.9 [facility] Internal Medicine Work Phone: Comment on above: Please note refere nce interval change Test(s) 751781-DTA-Y ; 544810-GKG-V; 273887-MMJ-Q; 688947-Ietczqgcdbmmn; 644213-Pkpanwxkgux, Total; 062487-DKS-X (Total);972793-Ozcxo LDL-P; 798097-RCO Size; 220672-KG-EZ Scorewas developed and its performance characteristics determinedby 36Kr. It has not been cleared or approved by the Foodand Drug Administration.PATIENT WAS FASTINGPERFORMED BY: Blackwood Seven[address] [id number] BY: Blackwood SevenCarlsbad Medical CenterAahzhc9681 [facility] [id number] Albumin/Globulin [Mass ratio] 2.1 {ratio} Normal 1.2-2.2 [facility] Work Phone: Comment on above: Test(s) 667386-EDM-U ; 020302-XCW-E; 489003-ZPI-I; 809031-Fwjtgieodqzyk; 781909-Hskpzbpwnte, Total; 031389-KAL-T (Total);234073-Ooozq LDL-P; 949127-SLZ Size; 293513-WH-YX Scorewas developed and its performance characteristics determinedby 36Kr. It has not been cleared or approved by the Foodand Drug Administration.PATIENT WAS FASTINGPERFORMED BY: [facility] [address] [id number] BY: KrugleMatheny Medical and Educational CenterAwbrdu5420 [facility] [id number] ALP [Catalytic activity/Vol] 51 [iU]/L Normal 39-117 [facility] Work Phone: Comment on above: Test(s) 143442-PIH-E ; 197347-YRT-D; 740566-YCW-T; 223166-Nnickxohytzfr; 201529-Nsuptcvwumu, Total; 000628-GXX-C (Total);012473-Odljf LDL-P; 414581-BQG Size; 466819-MR-GK Scorewas developed and its performance characteristics determinedby 36Kr. It has not been cleared or approved by the Foodand Drug Administration.PATIENT WAS FASTINGPERFORMED BY: Protein Bar[address] [id number] BY: Blackwood SevenMatheny Medical and Educational CenterZvjzny2623 [facility] [id number] ALP [Catalytic activity/Vol] 51 U/L Normal 39-117 [facility]; [facility] Work Phone: Comment on above: Test(s) 347937-VCT-D ; 045159-QVK-P; 952898-HLF-Y; 884314-Lqmnfjarctpjt; 148952-Mcqpuvblkfr, Total; 365211-HEO-G (Total);558404-Wxcsu LDL-P; 738868-CXH Size; 394947-VG-ES Scorewas developed and its performance characteristics determinedby 36Kr. It has not been cleared or approved by the Foodand Drug Administration.PATIENT WAS FASTINGPERFORMED BY: Blackwood Seven[address] [id number] BY: Blackwood SevenMatheny Medical and Educational CenterQwjgzb1555 [facility] [id number] ALT [Catalytic activity/Vol] 24 [iU]/L Normal 0-44 [facility] Internal Medicine Work Phone: Comment on above: Test(s) 153271-MNA-G ; 683226-BZJ-H; 399764-EIN-Z; 388776-Eigmcqcfslolo; 736532-Udolrzxgxqf, Total; 536688-QAN-Z (Total);170645-Xotbi LDL-P; 876686-BIY Size; 833608-BI-LL Scorewas developed and its performance characteristics determinedby 36Kr. It has not been cleared or approved by the Foodand Drug Administration.PATIENT WAS FASTINGPERFORMED BY: Blackwood Seven[address] [id number] BY: Blackwood SevenRyan [place] [id number] [facility] [id number] ALT [Catalytic activity/Vol] 24 U/L Normal 0-44 [facility]; [facility] Work Phone: Comment on above: Test(s) 187332-HES-O ; 059587-SAV-W; 195279-MTD-C; 849013-Japkntsqvnjfx; 863085-Sggloycamcq, Total; 447662-MOL-B (Total);866253-Puads LDL-P; 516509-OAM Size; 856932-HZ-AS Scorewas developed and its performance characteristics determinedby 36Kr. It has not been cleared or approved by the Foodand Drug Administration.PATIENT WAS FASTINGPERFORMED BY: Protein Bar[address] [id number] BY: Blackwood Seven Aatipn3479 [facility] [id number] AST [Catalytic activity/Vol] 15 [iU]/L Normal 0-40 [facility] Work Phone: Comment on above: Test(s) 641313-CMQ-C ; 888317-FXD-P; 073184-MYR-S; 301872-Ybmpupnsafybp; 515220-Qnysrlgzuzw, Total; 266442-LFE-A (Total);609826-Nrzor LDL-P; 957625-HSW Size; 736379-IL-OR Scorewas developed and its performance characteristics determinedby 36Kr. It has not been cleared or approved by the Foodand Drug Administration.PATIENT WAS FASTINGPERFORMED BY: [facility] [address] [id number] BY: Zidisha6370 [facility] [id number] AST [Catalytic activity/Vol] 15 U/L Normal 0-40 [facility]; [facility] Work Phone: Comment on above: Test(s) 131467-GTG-O ; 842899-TCP-P; 169735-HMP-M; 676654-Ejnlqasczdhaf; 033925-Grjcmwjjwql, Total; 112323-AZQ-N (Total);580737-Pvrqn LDL-P; 144591-FFL Size; 791639-YX-ZS Scorewas developed and its performance characteristics determinedby 36Kr. It has not been cleared or approved by the Foodand Drug Administration.PATIENT WAS FASTINGPERFORMED BY: Protein Bar[address] [id number] BY: Krugle Hzdpcp1565 [facility] [id number] Bilirubin [Mass/Vol] 0.5 mg/dL Normal 0.0-1.2 [facility] Work Phone: Comment on above: Test(s) 155069-VWA-C ; 478155-DDC-W; 644053-IMY-C; 667092-Vgnisgpdgupqy; 893939-Vxvwxpnpoyw, Total; 161465-CVX-M (Total);896389-Ypwbf LDL-P; 678894-TGV Size; 402838-MX-BK Scorewas developed and its performance characteristics determinedby 36Kr. It has not been cleared or approved by the Foodand Drug Administration.PATIENT WAS FASTINGPERFORMED BY: [facility] [address] [id number] BY: [employer] Tuwsge1350 [facility] [id number] Calcium [Mass/Vol] 9.8 mg/dL Normal 8.7-10.2 [facility] Internal Medicine Work Phone: Comment on above: Test(s) 488479-WTJ-S ; 692219-AYK-B; 312878-OAX-G; 426779-Clgfqihukdazt; 990363-Nhqslyhnuir, Total; 127487-GAG-F (Total);961046-Oyybf LDL-P; 590814-ATN Size; 465292-FW-JG Scorewas developed and its performance characteristics determinedby 36Kr. It has not been cleared or approved by the Foodand Drug Administration.PATIENT WAS FASTINGPERFORMED BY: [facility] [address] [id number] BY: [employer] Fcgtkl4115 [facility] [id number] Chloride [Moles/Vol] 104 mmol/L Normal 96-106 [facility] Internal Medicine Work Phone: Comment on above: Test(s) 687402-VWB-K ; 694199-CUD-L; 107991-KXC-F; 997118-Wzuwhlsltrrtm; 011508-Norhgiylqtt, Total; 658485-EDH-A (Total);583199-Bdpvw LDL-P; 461732-FQY Size; 573376-XO-XG Scorewas developed and its performance characteristics determinedby 36Kr. It has not been cleared or approved by the Foodand Drug Administration.PATIENT WAS FASTINGPERFORMED BY: [facility] [address] [id number] BY: Zidisha6370 [facility] [id number] CO2 [Moles/Vol] 24 mmol/L Normal 20-29 [facility] Work Phone: Comment on above: Test(s) 027691-WYZ-E ; 531692-RLF-L; 165372-IWL-Y; 476913-Akscyajagymzl; 837849-Erdrjsuejbn, Total; 087528-ZVC-T (Total);117871-Wtreq LDL-P; 062480-PBE Size; 243099-ST-KE Scorewas developed and its performance characteristics determinedby 36Kr. It has not been cleared or approved by the Foodand Drug Administration.PATIENT WAS FASTINGPERFORMED BY: MoveEZ[address] [id number] BY: [employer]70 [facility] [id number] Creatinine [Mass/Vol] 0.95 mg/dL Normal 0.76-1.27 [facility] Internal Medicine Work Phone: Comment on above: Test(s) 959172-SKM-R ; 615248-OYR-L; 336048-THI-K; 393918-Dbyfnnfbrhskm; 956750-Txaifcmhbuc, Total; 533387-LKM-O (Total);740882-Lnyiz LDL-P; 976018-YBC Size; 292848-EX-ZB Scorewas developed and its performance characteristics determinedby 36Kr. It has not been cleared or approved by the Foodand Drug Administration.PATIENT WAS FASTINGPERFORMED BY: [facility] [address] [id number] BY: Zidisha6370 [facility] [id number] GFR/1.73 sq M predicted among blacks CKD-EPI (S/P/Bld) [Vol rate/Area] 101 mL/min/1.73 Normal [facility] Internal Medicine Work Phone: Comment on above: Test(s) 410443-UWM-I ; 202436-NOX-D; 976151-ALM-J; 567290-Mykmuexxyvuai; 667956-Ykzykxstfcs, Total; 366215-OYH-V (Total);619237-Yfkpx LDL-P; 714431-JIB Size; 209904-YF-VO Scorewas developed and its performance characteristics determinedby 36Kr. It has not been cleared or approved by the Foodand Drug Administration.PATIENT WAS FASTINGPERFORMED BY: [employer] [address] [id number] BY: [employer] Ykxxvl1919 [facility] [id number] GFR/1.73 sq M predicted among non-blacks CKD-EPI (S/P/Bld) [Vol rate/Area] 87 mL/min/1.73 Normal [facility] Work Phone: Comment on above: Test(s) 818054-ESC-B ; 596562-KYS-S; 231529-TGA-S; 108249-Tfmponieuedpq; 847566-Evgczojhfjh, Total; 330337-MRF-I (Total);595121-Ilytb LDL-P; 844549-QFK Size; 426583-HA-UI Scorewas developed and its performance characteristics determinedby 36Kr. It has not been cleared or approved by the Foodand Drug Administration.PATIENT WAS FASTINGPERFORMED BY: Blackwood Seven[address] [id number] BY: Blackwood SevenMatheny Medical and Educational CenterOuuqwa9835 [facility] [id number] Globulin (S) [Mass/Vol] 2.2 g/dL Normal 1.5-4.5 [facility] Work Phone: Comment on above: Test(s) 052408-EFM-K ; 919840-VCH-Q; 899544-EIF-V; 669474-Hfadpgknsutzj; 865338-Tcsbpkqaczk, Total; 195413-CZM-F (Total);849224-Mwyuj LDL-P; 665897-INR Size; 194915-BJ-GI Scorewas developed and its performance characteristics determinedby 36Kr. It has not been cleared or approved by the Foodand Drug Administration.PATIENT WAS FASTINGPERFORMED BY: [facility] [address] [id number] BY: Krugle Ziuevw9018 [address] [facility] [id number] Glucose [Mass/Vol] 86 mg/dL Normal 65-99 [facility] Internal Medicine Work Phone: Comment on above: Test(s) 060685-WSA-V ; 228895-CCS-Q; 205617-LGA-W; 283853-Tmkplpvfhvgpf; 916008-Yxwbdmrmxjt, Total; 717398-NUK-H (Total);322928-Pnroi LDL-P; 444418-IVE Size; 321705-XZ-LS Scorewas developed and its performance characteristics determinedby 36Kr. It has not been cleared or approved by the Foodand Drug Administration.PATIENT WAS FASTINGPERFORMED BY: MoveEZ[address] [id number] BY: [employer] [facility] [id number] Potassium [Moles/Vol] 4.6 mmol/L Normal 3.5-5.2 [facility] Internal Medicine Work Phone: Comment on above: Test(s) 131347-GAV-N ; 690864-IVH-E; 476558-FCA-L; 604051-Fstuwmbrmkwqt; 287506-Syqxvwqavgj, Total; 190874-ZCU-C (Total);967983-Thhea LDL-P; 183906-KIS Size; 514414-OD-MT Scorewas developed and its performance characteristics determinedby 36Kr. It has not been cleared or approved by the Foodand Drug Administration.PATIENT WAS FASTINGPERFORMED BY: [facility] [address] [id number] BY: Zidisha6370 [facility] [id number] Protein [Mass/Vol] 6.9 g/dL Normal 6.0-8.5 [facility] Internal Medicine Work Phone: Comment on above: Test(s) 312631-FMD-Q ; 003517-DTQ-T; 003701-GHB-C; 680902-Lfxaxxryjjuqr; 928124-Xobdmamprvz, Total; 116872-TFP-K (Total);376416-Xjaqj LDL-P; 790579-AEO Size; 602223-GE-GV Scorewas developed and its performance characteristics determinedby 36Kr. It has not been cleared or approved by the Foodand Drug Administration.PATIENT WAS FASTINGPERFORMED BY: [facility] [address] [id number] BY: [employer] Uthoby1724 [facility] [id number] Sodium [Moles/Vol] 144 mmol/L Normal 134-144 [facility] Internal Medicine Work Phone: Comment on above: Test(s) 976468-FJA-B ; 395728-QAM-Q; 629888-MDC-U; 845577-Xojmfuurxqvaw; 443461-Ctwrljzbgad, Total; 084238-FVQ-V (Total);056339-Gdqpi LDL-P; 343393-XZZ Size; 127106-GL-SM Scorewas developed and its performance characteristics determinedby 36Kr. It has not been cleared or approved by the Foodand Drug Administration.PATIENT WAS FASTINGPERFORMED BY: [facility] [address] [id number] BY: Zidisha6370 [facility] [id number] Urea nitrogen [Mass/Vol] 12 mg/dL Normal 6-24 [facility] Internal Medicine Work Phone: Comment on above: Test(s) 574362-KJI-W ; 927326-MIN-N; 114501-BLM-B; 692513-Tvhufbnppiror; 920068-Qghacieouem, Total; 928487-CGB-U (Total);968480-Lqetn LDL-P; 473475-GVE Size; 337224-CI-US Scorewas developed and its performance characteristics determinedby 36Kr. It has not been cleared or approved by the Foodand Drug Administration.PATIENT WAS FASTINGPERFORMED BY: [facility] [address] [id number] BY: Zidisha6370 [facility]cycloAlleghany Health [id number] Urea nitrogen/Creatinine [Mass ratio] 13 mg/mg Normal 9-20 [facility] Work Phone: Comment on above: Test(s) 584659-ILT-F ; 584565-URG-L; 327471-ABK-C; 356187-Jolvlporzkxjm; 556056-Eqmzmcgiunh, Total; 969359-ZUT-Z (Total);234737-Nctde LDL-P; 513472-VWY Size; 146627-LH-GU Scorewas developed and its performance characteristics determinedby 36Kr. It has not been cleared or approved by the Foodand Drug Administration.PATIENT WAS FASTINGPERFORMED BY: [facility] [address] [id number] BY: Zidisha6370 ncycloAlleghany Health [id number] MICROALBUMINOrdered By: Syst em Asphalt Dauber on 11-12-2019 Albumin DL <= 20 mg/L (U) [Mass/Vol] mg/dL Normal [facility] Work Phone: Comment on above: Test(s) 739384-EVC-U ; 543393-PXJ-S; 798798-BWY-F; 118434-Pebwojbjgdlkd; 489722-Ajzwquzipje, Total; 876325-VVM-O (Total);299027-Ahyve LDL-P; 839255-VLR Size; 940224-SU-TG Scorewas developed and its performance characteristics determinedby 36Kr. It has not been cleared or approved by the Foodand Drug Administration.PATIENT WAS FASTINGPERFORMED BY: [facility] [address] [id number] BY: Zidisha6370 ValeroDelverAlleghany Health [id number] Albumin DL <= 20 mg/L (U) [Mass/Vol] mg/dL Normal [facility]; [facility] Work Phone: Comment on above: Test(s) 125241-MJV-F ; 851290-BWA-V; 936350-INR-V; 707510-Sybgupqixyyri; 638281-Qrqcvdehvuf, Total; 426028-AQE-X (Total);903535-Vjkir LDL-P; 120687-OZA Size; 015976-FE-MJ Scorewas developed and its performance characteristics determinedby 36Kr. It has not been cleared or approved by the Foodand Drug Administration.PATIENT WAS FASTINGPERFORMED BY: [facility] [address] [id number] BY: [employer]70 [facility] [id number] Albumin/Creatinine (U) [Mass ratio] <2 Normal 0-29 [facility] Work Phone: Comment on above: Normal: 0 - 29 Moder ately increased: 30 - 300 Severely increased: >300 Please note reference interval change Test(s) 780326-MXB-C ; 237751-DJL-E; 545534-OJU-S; 848906-Fyirylrtovcsz; 100670-Hfjdkuvpwlr, Total; 985168-MYN-A (Total);262340-Vejfi LDL-P; 317875-WSQ Size; 838263-HJ-EQ Scorewas developed and its performance characteristics determinedby 36Kr. It has not been cleared or approved by the FoodTDI [place] Drug Administration.PATIENT WAS FASTINGPERFORMED BY: [facility] [address] [id number] BY: Zidisha6370 [facility] [id number] Creatinine (U) [Mass/Vol] 135.6 mg/dL Normal [facility] Work Phone: Comment on above: Test(s) 264567-CSO-P ; 278193-BAW-J; 736723-CAX-G; 079184-Vlgukwgdicqgu; 822667-Gxhbhvxptng, Total; 232384-VED-W (Total);244333-Urznc LDL-P; 780777-NOV Size; 702675-YB-JS Scorewas developed and its performance characteristics determinedby 36Kr. It has not been cleared or approved by the Foodand Drug Administration.PATIENT WAS FASTINGPERFORMED BY: MoveEZ[address] [id number] BY: Krugle Pcmfvj3563 [place] abcdexpertsAlleghany Health [id number] NMR Profile (22912)Ordered B y: Data Reporting Analyst on 11-12-2019 Cholesterol [Mass/Vol] 233 mg/dL Abnormal 100-199 [facility] Work Phone: Comment on above: Test(s) 065770-ARB-R ; 407431-YWP-J; 388220-MXR-E; 737619-Zltbylgrqejgx; 483809-Cnvheicovno, Total; 111339-VOL-L (Total);734167-Znbmb LDL-P; 429314-AIA Size; 399043-DF-XH Scorewas developed and its performance characteristics determinedby 36Kr. It has not been cleared or approved by the Foodand Drug Administration.PATIENT WAS FASTINGPERFORMED BY: MoveEZ[address] [id number] BY: [employer]70 [facility] [id number] Lipoprotein.alpha [Moles/Vol] 33.1 umol/L Normal [facility] Internal Medicine Work Phone: Comment on above: Test(s) 855616-IRS-G ; 487011-BJU-V; 436672-FEN-M; 140752-Migjiqtyksbgg; 657102-Mwxlsvozrvl, Total; 789805-MZW-S (Total);447935-Pvyhf LDL-P; 813647-USR Size; 447312-GB-WX Scorewas developed and its performance characteristics determinedby 36Kr. It has not been cleared or approved by the Foodand Drug Administration.PATIENT WAS FASTINGPERFORMED BY: MoveEZ[address] [id number] BY: coRanklin6370 [facility] [id number] Lipoprotein.beta.subpar ticle [Entitic length] 20.9 nm Normal [facility] Work Phone: Comment on above: [...] not afterLDL-P is taken into account. Test(s) 176229-ULX-R ; 129950-PRR-U; 037588-XQS-U; 079048-Ahzmoclpgmsje; 522507-Yhcirbfmjiu, Total; 434606-ADB-W (Total);785067-Oaqcm LDL-P; 676639-GUC Size; 682248-RE-XV Scorewas developed and its performance characteristics determinedby 36Kr. It has not been cleared or approved by the Foodand Drug Administration.PATIENT WAS FASTINGPERFORMED BY: LabCo[address] [id number] BY: LabCoMatheny Medical and Educational CenterShpmwe7723 [facility] [id number] Lipoprotein.beta.subpar ticle [Moles/Vol] 1809 nmol/L Abnormal [facility] Work Phone: Comment on above: Low < 1000 Moderate 1000 - 1299 Borderline-High 1300 - 1599 High 1600 - 2000 Very High > 2000 Test(s) 601143-HWM-L ; 427550-KNQ-K; 528489-USV-R; 564438-Nbbjdujfldpim; 018960-Txdctaldyhw, Total; 463369-HAM-I (Total);354470-Kmaxh LDL-P; 988413-WKR Size; 767210-AC-OU Scorewas developed and its performance characteristics determinedby 36Kr. It has not been cleared or approved by the Foodand Drug Administration.PATIENT WAS FASTINGPERFORMED BY: [facility] [address] [id number] BY: Zidisha6370 [facility] [id number] Lipoprotein.beta.subpar ticle.small [Moles/Vol] 737 nmol/L Abnormal Comprehe nsive Internal Medicine Work Phone: Comment on above: Test(s) 592861-XIW-H ; 268826-PHV-V; 885975-ZOD-A; 987608-Uzgrdiksjevza; 785176-Ahrsypsjnml, Total; 726710-SUF-G (Total);770996-Bsxpn LDL-P; 147175-NXW Size; 124917-CK-OM Scorewas developed and its performance characteristics determinedby 36Kr. It has not been cleared or approved by the Foodand Drug Administration.PATIENT WAS FASTINGPERFORMED BY: [facility] [address] [id number] BY: [employer] Cmtvea2457 [facility] [id number] Triglyceride [Mass/Vol] 114 mg/dL Normal 0-149 C omprehensive Internal Medicine Work Phone: Comment on above: Test(s) 330430-WLU-I ; 992594-XYK-Q; 800296-HMZ-A; 985993-Jogmasvrbwzvg; 672050-Zpbwbkmkukd, Total; 426141-BCO-T (Total);305678-Dtwqi LDL-P; 553856-VOB Size; 092961-CE-KU Scorewas developed and its performance characteristics determinedby 36Kr. It has not been cleared or approved by the Foodand Drug Administration.PATIENT WAS FASTINGPERFORMED BY: [facility] [address] [id number] BY: Zidisha6370 [facility] [id number] NMR Profile (22442) 158 mg/dL Abnormal 0-99 [facility] Internal Medicine Work Phone: Comment on above: . Optimal < 100 Abov e optimal 100 - 129 Borderline 130 - 159 High 160 - 189 Very high > 189 .LDL-C is inaccurate if patient is non-fasting. Test(s) 921991-FLY-D ; 248356-LFU-R; 332219-BLQ-M; 604131-Jhyggbxfpxckf; 120191-Ukgozhkceyy, Total; 703170-TUW-M (Total);597842-Bhywo LDL-P; 283576-CWT Size; 580989-EZ-FM Scorewas developed and its performance characteristics determinedby 36Kr. It has not been cleared or approved by the Foodand Drug Administration.PATIENT WAS FASTINGPERFORMED BY: [employer] [place] [address] [id number] BY: Zidisha6370 [facility] [id number] NMR Profile (40807) 52 mg/dL Normal [facility] Internal Medicine Work Phone: Comment on above: Test(s) 075626-NZJ-W ; 329514-DEI-D; 536163-RCI-X; 078462-Hswzwqjlpnabk; 644638-Vhfrtkrdpkq, Total; 177104-DGA-U (Total);284562-Ullqd LDL-P; 935193-DIP Size; 234622-XU-SM Scorewas developed and its performance characteristics determinedby 36Kr. It has not been cleared or approved by the Foodand Drug Administration.PATIENT WAS FASTINGPERFORMED BY: MoveEZ[address] [id number] BY: Zidisha6370 [facility] [id number] TSH (THYROID STIMULATING HOR LEATHA) (93517)Ordered By: Data Reporting Analyst on 11-12-2019 TSH Qn 0.805 {uIU/mL} Normal 0.450-4.50 0 [facility] Work Phone: Comment on above: Test(s) 329246-BWL-U ; 293884-LOB-H; 974786-QKA-J; 136033-Sxfxowxqutofy; 112336-Hgsoexmxdkp, Total; 274801-KVT-N (Total);157832-Vljvz LDL-P; 562210-SDE Size; 108118-YI-RP Scorewas developed and its performance characteristics determinedby [facility] MedicalSt. [facility]. It has not been cleared or approved by the Foodand Drug Administration.PATIENT WAS FASTINGPERFORMED BY: Blackwood Seven[address] [id number] BY: Blackwood SevenCarlsbad Medical CenterTmgkbi4483 ncycloAlleghany Health [id number] ESTEPHANIE (ANTINUCLEAR ANTIBODY) ( 47142)Ordered By: Data Reporting Analyst on 10-04-2018 Nuclear Ab Ql (S) Negative Normal Compreh ensive Internal Medicine Work Phone: Comment on above: PATIENT WAS FASTINGP ERFORMED BY: Blackwood Seven[address] [id number] BY: Blackwood SevenCarlsbad Medical CenterMjfyjl1956 [address] abcdexpertsAlleghany Health [id number] Nuclear Ab Ql (S) Negative Normal Compreh ensive Internal Medicine; [facility] Work Phone: Comment on above: PATIENT WAS FASTINGP ERFORMED BY: Blackwood Seven[address] [id number] BY: Blackwood SevenCarlsbad Medical CenterRaixbs6557 [address] abcdexpertsAlleghany Health [id number] C-REACTIVE PROTEIN (11612)Or dered By: Data Reporting Analyst on 10-04-2018 CRP [Mass/Vol] 0.6 mg/L Normal 0.0-4.9 Comprehens linh Internal Medicine Work Phone: Comment on above: PATIENT WAS FASTINGP ERFORMED BY: [employer] [id number] BY: [place]wood SevenCarlsbad Medical CenterJoyofy0459 [address] abcdexpertsAlleghany Health [id number] CALCIFIDIOL (64870) VIT D 25 Ordered By: Data Reporting Analyst on 10-04-2018 25-Hydroxyvitamin D2+25-Hydroxyvitamin D3 [Mass/Vol] 29.6 ng/mL Abnormal 30.0-100.0 [facility] Work Phone: Comment on above: Vitamin D deficiency has been defined by the [place] ofMedicine and an Endocrine Society practice guideline as alevel of serum 25-OH vitamin D less than 20 ng/mL (1,2).The Endocrine Society went on to further define vitamin Dinsufficiency as a level between 21 and 29 ng/mL (2).1. IOM ([place] of Medicine). 2010. Dietary reference intakes for calcium and D. [place]: The National Academies Press.2. Abraham MF, Robert MOREIRA, Seamus JOYNER, et al. Evaluation, treatment, and prevention of vitamin D deficiency: an Endocrine Society clinical practice guideline. JCEM. 2010; 96(7):1911-30. PATIENT WAS FASTINGP ERFORMED BY: [facility] [id number] BY: [employer] [facility] [id number] CBC (AUTO) (57888)Ordered By : Data Reporting Analyst on 10-04-2018 Erythrocyte distribution width (RBC) [Ratio] 12.9 % Normal 12.3-15.4 [facility] Work Phone: Comment on above: PATIENT WAS FASTINGP ERFORMED BY: [facility] [id number] BY: [employer]70 [facility] [id number] Hematocrit (Bld) [Volume fraction] 45.0 % Normal 37.5-51.0 [facility] Work Phone: Comment on above: PATIENT WAS FASTINGP ERFORMED BY: [facility] [id number] BY: Zidisha6370 [address] [facility] [id number] Hemoglobin (Bld) [Mass/Vol] 14.8 g/dL Normal 13.0-17.7 [facility] Work Phone: Comment on above: PATIENT WAS FASTINGP ERFORMED BY: [facility] [address] [id number] BY: BIANCA [facility] Dfohck6219 Valero RoadDublin [place] [id number] MCH (RBC) [Entitic mass] 29.1 pg Normal 26.6-33.0 [facility] Work Phone: Comment on above: PATIENT WAS FASTINGP ERFORMED BY: [facility] [address] [id number] BY: BIANCA [facility] Hfehvq94[address] [facility] HospitalDublin [place] [id number] MCHC (RBC) [Mass/Vol] 32.9 g/dL Normal 31.5-35.7 [facility] Internal Medicine Work Phone: Comment on above: PATIENT WAS FASTINGP ERFORMED BY: [facility] [address] [id number] BY: BIANCA [facility] Nmnkyx6844 [address]ero RoadDublin [place] [id number] MCV (RBC) [Entitic vol] 89 fL Normal 79-97 [facility] Internal Medicine Work Phone: Comment on above: PATIENT WAS FASTINGP ERFORMED BY: [facility] [address] [id number] BY: BIANCA [facility] Hjmbrk1273 [address]ero RoadDublin [place] [id number] Platelets (Bld) [#/Vol] 277 {x10E3/uL} Normal 150-379 [facility] Work Phone: Comment on above: PATIENT WAS FASTINGP ERFORMED BY: [facility] [id number] BY: [facility] Vbgaio3231 [address]ero RoadDublin [place] [id number] Platelets (Bld) [#/Vol] 277 10*3/uL Normal 150-379 [facility]; [facility] Work Phone: Comment on above: PATIENT WAS FASTINGP ERFORMED BY: [facility] Vsouqwsgpa8367 [facility] [id number] BY: CB [facility] Gsqddt1598 [address] RoadDublin [place] [id number] RBC (Bld) [#/Vol] 5.08 {x10E6/uL} Normal 4.14-5.80 [facility] Internal Medicine Work Phone: Comment on above: PATIENT WAS FASTINGP ERFORMED BY: [facility] [address] [id number] BY: CB [facility] Spfztt2804 [address]ero RoadDublin [place] [id number] RBC (Bld) [#/Vol] 5.08 10*6/uL Normal 4.14-5.80 [facility]; [facility] Work Phone: Comment on above: PATIENT WAS FASTINGP ERFORMED BY: [facility] [address] [id number] BY: [facility] Wwqdob9651 [address]ero RoadDublin [place] [id number] WBC (Bld) [#/Vol] 4.6 {x10E3/uL} Normal 3.4-10.8 [facility] Internal Medicine Work Phone: Comment on above: PATIENT WAS FASTINGP ERFORMED BY: [facility] [address] [id number] BY: [facility] Sjlmmu1952 [address]ero RoadDublin [place] [id number] WBC (Bld) [#/Vol] 4.6 10*3/uL Normal 3.4-10.8 [facility] Internal Medicine; [facility] Work Phone: Comment on above: PATIENT WAS FASTINGP ERFORMED BY: [facility] [address] [id number] BY: CB [facility] Rsewkj8399 Valero RoadDublin [place] [id number] LIPOPROTEIN, BLD, BY NMR (83 704)Ordered By: Data Reporting Analyst on 10-04-2018 Cholesterol [Mass/Vol] 250 mg/dL Abnormal 100-199 Co rust Internal Medicine Work Phone: Comment on above: PATIENT WAS FASTINGP ERFORMED BY: Protein Bar[address] [id number] BY: [place] [employer] Scmsve3213 [facility] [id number] Cholesterol in HDL [Mass/Vol] 54 mg/dL Normal [facility] Work Phone: Comment on above: PATIENT WAS FASTINGP ERFORMED BY: MoveEZ[address] [id number] BY: [employer]70 [facility] [id number] Cholesterol in LDL [Mass/Vol] 177 mg/dL Abnormal 0-99 [facility] Work Phone: Comment on above: . Optimal < 100 Abov e optimal 100 - 129 Borderline 130 - 159 High 160 - 189 Very high > 189 .LDL-C is inaccurate if patient is non-fasting. PATIENT WAS FASTINGP ERFORMED BY: MoveEZ[address] [id number] BY: Krugle Qyotix8067 [facility] [id number] Lipoprotein.alpha [Moles/Vol] 33.0 umol/L Normal [facility] Work Phone: Comment on above: PATIENT WAS FASTINGP ERFORMED BY: [facility] [address] [id number] BY: [place] [employer] Vhhfee3942 [facility] [id number] Lipoprotein.beta.subpar ticle [Entitic length] 21.2 nm Normal [facility] Internal [facility] Work Phone: Comment on above: [...] were developed and their performance characteristicsdetermined by [employer]. These assays have not been cleared by uJan Food and Drug Administration. The clinical utility of theselaboratory values have not been fully established. PATIENT WAS FASTINGP ERFORMED BY: MoveEZ[address] [id number] BY: [employer]70 [facility] [id number] Lipoprotein.beta.subpar ticle [Moles/Vol] 2113 nmol/L Abnormal [facility] Work Phone: Comment on above: Low < 1000 Moderate 1000 - 1299 Borderline-High 1300 - 1599 High 1600 - 2000 Very High > 2000 PATIENT WAS FASTINGP ERFORMED BY: MoveEZ[address] [id number] BY: Zidisha6370 [facility] [id number] Lipoprotein.beta.subpar ticle.small [Moles/Vol] 818 nmol/L Abnormal Comprehe nsive Internal Medicine Work Phone: Comment on above: PATIENT WAS FASTINGP ERFORMED BY: MoveEZ[address] [id number] BY: BIANCA [facility] Bsvqpz8074 [address] RoadDublin [place] [id number] Triglyceride [Mass/Vol] 97 mg/dL Normal 0-149 C omprehensive Internal Medicine Work Phone: Comment on above: PATIENT WAS FASTINGP ERFORMED BY: [facility] [address] [id number] BY: BIANCA [facility] Xzjfds1193 [address] RoadDublin [place] [id number] METABOLIC PANEL, COMPREHENSI VE (62598)Ordered By: Data Reporting Analyst on 10-04-2018 Albumin [Mass/Vol] 4.6 g/dL Normal 3.5-5.5 [facility] Internal Medicine Work Phone: Comment on above: PATIENT WAS FASTINGP ERFORMED BY: [facility] [address] [id number] BY: BIANCA [facility] Juezbm1212 [address]ero RoadDublin [place] [id number] Albumin/Globulin [Mass ratio] 1.9 {ratio} Normal 1.2-2.2 [facility] Work Phone: Comment on above: PATIENT WAS FASTINGP ERFORMED BY: [facility] [address] [id number] BY: BIANCA [facility] Cthljm7177 [address] RoadDublin [place] [id number] ALP [Catalytic activity/Vol] 54 [iU]/L Normal 39-117 [facility] Work Phone: Comment on above: PATIENT WAS FASTINGP ERFORMED BY: [facility] [address] [id number] BY: BIANCA [facility] Zcscke7831 [address] RoadDublin [place] [id number] ALP [Catalytic activity/Vol] 54 U/L Normal 39-117 [facility]; [facility] Work Phone: Comment on above: PATIENT WAS FASTINGP ERFORMED BY: [facility] [address] [id number] BY: BIANCA StantonCo Gmuqvu3685 [address]ero RoadDublin [place] [id number] ALT [Catalytic activity/Vol] 24 [iU]/L Normal 0-44 [facility] Work Phone: Comment on above: PATIENT WAS FASTINGP ERFORMED BY: Lab[address] [id number] BY: BIANCA [facility] Flevny3157 [address] RoadDublin [place] [id number] ALT [Catalytic activity/Vol] 24 U/L Normal 0-44 [facility]; [facility] Work Phone: Comment on above: PATIENT WAS FASTINGP ERFORMED BY: [address] [id number] BY: [facility] Umjaln6637 [address] RoadDublin [place] [id number] AST [Catalytic activity/Vol] 16 [iU]/L Normal 0-40 [facility] Work Phone: Comment on above: PATIENT WAS FASTINGP ERFORMED BY: [address] [id number] BY: [facility] Bspboe5727 [address] RoadDublin [place] [id number] AST [Catalytic activity/Vol] 16 U/L Normal 0-40 [facility]; [facility] Work Phone: Comment on above: PATIENT WAS FASTINGP ERFORMED BY: Lab[address] [id number] BY: [facility] Edqhvy1117 [address] RoadDublin [place] [id number] Bilirubin [Mass/Vol] 0.3 mg/dL Normal 0.0-1.2 Comp [facility] Internal Medicine Work Phone: Comment on above: PATIENT WAS FASTINGP ERFORMED BY: [address] [id number] BY: [facility] Ojnukv6192 [address] RoadDublin [place] [id number] Calcium [Mass/Vol] 9.9 mg/dL Normal 8.7-10.2 [facility] Internal Medicine Work Phone: Comment on above: PATIENT WAS FASTINGP ERFORMED BY: BN [facility] [address] [id number] BY: CB [facility] Kwzkqp3809 [address] RoadDublin [place] [id number] Chloride [Moles/Vol] 102 mmol/L Normal 96-106 [facility] Work Phone: Comment on above: PATIENT WAS FASTINGP ERFORMED BY: BN [facility] Bxfhpowhzz[address] [id number] BY: CB [facility] Fdaoir8537 [address] RoadDublin [place] [id number] CO2 [Moles/Vol] 24 mmol/L Normal 20-29 [facility] Work Phone: Comment on above: PATIENT WAS FASTINGP ERFORMED BY: BN [facility] [address] [id number] BY: CB [facility] Fmwdrp2716 [address] RoadDublin [place] [id number] Creatinine [Mass/Vol] 1.01 mg/dL Normal 0.76-1.27 [facility] Internal Medicine Work Phone: Comment on above: PATIENT WAS FASTINGP ERFORMED BY: BN LabLikeMe.Netrp [address] [id number] BY: CB [facility] Aruofl0138 [address] RoadDublin [place] [id number] GFR/1.73 sq M predicted among blacks CKD-EPI (S/P/Bld) [Vol rate/Area] 95 mL/min/1.73 Normal [facility] Work Phone: Comment on above: PATIENT WAS FASTINGP ERFORMED BY: BN [facility] Kicbpsvrvs[address] [id number] BY: CB [facility] Ufvarv1472 [address] RoadDublin [place] [id number] GFR/1.73 sq M predicted among non-blacks CKD-EPI (S/P/Bld) [Vol rate/Area] 82 mL/min/1.73 Normal [facility] Work Phone: Comment on above: PATIENT WAS FASTINGP ERFORMED BY: Lab[address] [id number] BY: BIANCA [facility] Ipzngk6932 [address] RoadDublin [place] [id number] Globulin (S) [Mass/Vol] 2.4 g/dL Normal 1.5-4.5 C [facility]ensive Internal [facility] Work Phone: Comment on above: PATIENT WAS FASTINGP ERFORMED BY: Lab[address] [id number] BY: BIANCA LabCoMatheny Medical and Educational CenterKecuzx8218 [address] RoadDublin [place] [id number] Glucose [Mass/Vol] 99 mg/dL Normal 65-99 [facility] Internal Medicine Work Phone: Comment on above: PATIENT WAS FASTINGP ERFORMED BY: Lab[address] [id number] BY: LabCoCarlsbad Medical CenterOamqgb2963 [address] RoadDublin [place] [id number] Potassium [Moles/Vol] 4.8 mmol/L Normal 3.5-5.2 [facility] Internal Medicine Work Phone: Comment on above: PATIENT WAS FASTINGP ERFORMED BY: Lab[address] [id number] BY: LabFresenius [facility]6370 [address] RoadDublin [place] [id number] Protein [Mass/Vol] 7.0 g/dL Normal 6.0-8.5 [facility] Internal Medicine Work Phone: Comment on above: PATIENT WAS FASTINGP ERFORMED BY: Lab[address] [id number] BY: [facility] Qvtrwp5209 [address] RoadDublin [place] [id number] Sodium [Moles/Vol] 143 mmol/L Normal 134-144 Compre hensive Internal Medicine Work Phone: Comment on above: PATIENT WAS FASTINGP ERFORMED BY: [facility] [address] [id number] BY: CB [facility] Pcevvx6482 [address] RoadDublin [place] [id number] Urea nitrogen [Mass/Vol] 12 mg/dL Normal 6-24 [facility] Work Phone: Comment on above: PATIENT WAS FASTINGP ERFORMED BY: [facility] [address] [id number] BY: CB [facility] Wwpxoe1259 [address] RoadDublin [place] [id number] Urea nitrogen/Creatinine [Mass ratio] 12 mg/mg Normal 9-20 [facility] Work Phone: Comment on above: PATIENT WAS FASTINGP ERFORMED BY: [facility] [address] [id number] BY: CB [facility] Cylgmk4833 [address] RoadDublin [place] [id number] SED RATE ERYTHROCYTE ([id number]) Ordered By: Data Reporting Analyst on 10-04-2018 ESR (Bld) [Velocity] 2 mm/h Normal 0-30 [facility] Work Phone: Comment on above: PATIENT WAS FASTINGP ERFORMED BY: LabCo[address] [id number] BY: [facility] Thejpz2496 [address] RoadDublin [place] [id number] TSH (58556)Ordered By: Kiromice m Asphalt Dauber on 10-04-2018 TSH Qn 1.330 {uIU/mL} Normal 0.450-4.50 0 [facility] Work Phone: Comment on above: PATIENT WAS FASTINGP ERFORMED BY: [facility] [address] [id number] BY: CB [facility] Jwdaox3742 [address] RoadDublin [place] [id number] VITAMIN B-12 (CYANOCOBALAMIN ) (39953)Ordered By: Data Reporting Analyst on 10-04-2018 Cobalamin (Vitamin B12) [Mass/Vol] 499 pg/mL Normal 232-1245 [facility] Work Phone: Comment on above: PATIENT WAS FASTINGP ERFORMED BY: [facility] [place]1447 [facility] [id number] BY: Allux MedicalFresenius [facility]6370 [facility] [id number] Blood Glucose , Office ([phone])Ordered By: Josefa Reinoso on 10-01-2018 Glucose Glucometer molar conc (BldC) 84 1 Normal [facility] Work Phone: HgA1C , Office ([phone])Ordere d By: Josefa Reinoso on 10-01-2018 Hemoglobin A1c/Hemoglobin.total mass fraction (Bld) 5.5 % Normal 4.6 - 7.1 Comprehensiv e Internal Medicine Work Phone: Blood Glucose , Office ([phone])Ordered By: Nadia Valerio on 08-01-2017 Glucose Glucometer molar conc (BldC) 88 1 Normal [facility] Work Phone: CBC W/AUTO DIFF WBC (83928)O rdered By: Data Reporting Analyst on 08-01-2017 Basophils (Bld) [#/Vol] 0.1 {x10E3/uL} Normal 0.0-0.2 [facility] Work Phone: Comment on above: PATIENT WAS FASTINGP ERFORMED BY: [place] SevenMatheny Medical and Educational CenterZrpqis7243 [facility] [id number] Basophils (Bld) [#/Vol] 0.1 10*3/uL Normal 0.0-0.2 [facility]; [facility] Work Phone: Comment on above: PATIENT WAS FASTINGP ERFORMED BY: [place] SevenMatheny Medical and Educational CenterHkkuge7805 [facility] [id number] Basophils Auto #/vol (Bld) 0.1 {x10E3/uL} Normal 0.0-0.2 [facility] Work Phone: Basophils/100 WBC (Bld) 2 % Normal C omprehensive Internal Medicine Work Phone: Comment on above: PATIENT WAS FASTINGP ERFORMED BY: BIANCA LabF[facility]6370 [facility] [id number] Basophils/100 WBC Auto (Bld) 2 % Normal [facility] Work Phone: Eosinophils (Bld) [#/Vol] 0.3 {x10E3/uL} Normal 0.0-0.4 [facility] Work Phone: Comment on above: PATIENT WAS FASTINGP ERFORMED BY: LabF[facility]6370 [facility] [id number] Eosinophils (Bld) [#/Vol] 0.3 10*3/uL Normal 0.0-0.4 [facility]; [facility] Work Phone: Comment on above: PATIENT WAS FASTINGP ERFORMED BY: [facility]6370 [facility] [id number] Eosinophils Auto #/vol (Bld) 0.3 {x10E3/uL} Normal 0.0-0.4 [facility] Work Phone: Eosinophils/100 WBC (Bld) 6 % Normal [facility] Work Phone: Comment on above: PATIENT WAS FASTINGP ERFORMED BY: LabF[facility]6370 [facility] [id number] Eosinophils/100 WBC Auto (Bld) 6 % Normal [facility] Work Phone: Erythrocyte distribution width (RBC) [Ratio] 13.2 % Normal 12.3-15.4 [facility] Work Phone: Comment on above: PATIENT WAS FASTINGP ERFORMED BY: LabFresen[facility]6370 [facility] [id number] Erythrocyte distribution width Auto Ratio (RBC) 13.2 % Normal 12.3-15.4 [facility] Work Phone: Hematocrit (Bld) [Volume fraction] 43.8 % Normal 37.5-51.0 [facility] Work Phone: Comment on above: PATIENT WAS FASTINGP ERFORMED BY: BIANCA MaximinoCo Wklalf7[address] [facility] [id number] Hematocrit Auto Volume Fraction (Bld) 43.8 % Normal 37.5-51.0 [facility] Work Phone: Hemoglobin mass conc (Bld) 14.9 g/dL Normal 12.6-17.7 [facility] Work Phone: Comment on above: PATIENT WAS FASTINGP ERFORMED BY: BIANCA LabF[facility]6[address] [facility] [id number] Immature granulocytes #/vol (Bld) 0.0 {x10E3/uL} Normal 0.0-0.1 [facility] Work Phone: Comment on above: PATIENT WAS FASTINGP ERFORMED BY: BIANCA [facility]St[facility] Jzrvsq5069 [address] [facility] [id number] Immature granulocytes (Bld) [#/Vol] 0.0 10*3/uL Normal 0.0-0.1 [facility]; [facility] Work Phone: Comment on above: PATIENT WAS FASTINGP ERFORMED BY: BIANCA [facility]St[facility] Ujydgd9481 [address] [facility] [id number] Immature granulocytes/100 WBC (Bld) 0 % Normal [facility] Work Phone: Comment on above: PATIENT WAS FASTINGP ERFORMED BY: [facility] Syqiez6910 [address] [facility] [id number] Lymphocytes (Bld) [#/Vol] 1.4 {x10E3/uL} Normal 0.7-3.1 [facility] Work Phone: Comment on above: PATIENT WAS FASTINGP ERFORMED BY: [facility] Bldpdr1420 [address] [facility]in [place] [id number] Lymphocytes (Bld) [#/Vol] 1.4 10*3/uL Normal 0.7-3.1 [facility]; [facility] Work Phone: Comment on above: PATIENT WAS FASTINGP ERFORMED BY: LabCoCarlsbad Medical CenterXqtyys7285 [facility] [id number] Lymphocytes Auto #/vol (Bld) 1.4 {x10E3/uL} Normal 0.7-3.1 [facility] Work Phone: Lymphocytes/100 WBC (Bld) 31 % Normal [facility] Work Phone: Comment on above: PATIENT WAS FASTINGP ERFORMED BY: BIANCA [facility]6370 [facility] [id number] Lymphocytes/100 WBC Auto (Bld) 31 % Normal [facility] Work Phone: MCH (RBC) [Entitic mass] 29.0 pg Normal 26.6-33.0 [facility] Work Phone: Comment on above: PATIENT WAS FASTINGP ERFORMED BY: BIANCA [facility] HospitalLikeMe.Net Nnppod2552 [facility] [id number] MCH Auto Entitic mass (RBC) 29.0 pg Normal 26.6-33.0 [facility] Work Phone: MCHC (RBC) [Mass/Vol] 34.0 g/dL Normal 31.5-35.7 [facility] Internal Medicine Work Phone: Comment on above: PATIENT WAS FASTINGP ERFORMED BY: BIANCA StantonSt. [facility] Ffzqbi5457 [facility] [id number] MCHC Auto mass conc (RBC) 34.0 g/dL Normal 31.5-35.7 [facility] Work Phone: MCV (RBC) [Entitic vol] 85 fL Normal 79-97 C [facility] Internal Medicine Work Phone: Comment on above: PATIENT WAS FASTINGP ERFORMED BY: [facility]6370 [facility] [id number] MCV Auto Entitic volume (RBC) 85 fL Normal 79-97 [facility] Internal Medicine Work Phone: Monocytes (Bld) [#/Vol] 0.3 {x10E3/uL} Normal 0.1-0.9 [facility] Work Phone: Comment on above: PATIENT WAS FASTINGP ERFORMED BY: [facility] [facility] [place] [id number] Monocytes (Bld) [#/Vol] 0.3 10*3/uL Normal 0.1-0.9 [facility]; [facility] Work Phone: Comment on above: PATIENT WAS FASTINGP ERFORMED BY: [facility] Tdbhsi4443 [address] Roadblin [place] [id number] Monocytes Auto #/vol (Bld) 0.3 {x10E3/uL} Normal 0.1-0.9 [facility] Work Phone: Monocytes/100 WBC (Bld) 6 % Normal C omprehensive Internal Medicine Work Phone: Comment on above: PATIENT WAS FASTINGP ERFORMED BY: [facility] Uxmzmv4[address] [facility] [place] [id number] Monocytes/100 WBC Auto (Bld) 6 % Normal [facility] Work Phone: Neutrophils (Bld) [#/Vol] 2.5 {x10E3/uL} Normal 1.4-7.0 [facility] Work Phone: Comment on above: PATIENT WAS FASTINGP ERFORMED BY: [place] 1570470 [facility] [id number] Neutrophils (Bld) [#/Vol] 2.5 10*3/uL Normal 1.4-7.0 [facility]; [facility] Work Phone: Comment on above: PATIENT WAS FASTINGP ERFORMED BY: [facility]6[address] [facility] [id number] Neutrophils Auto #/vol (Bld) 2.5 {x10E3/uL} Normal 1.4-7.0 [facility] Work Phone: Neutrophils/100 WBC (Bld) 55 % Normal [facility] Work Phone: Comment on above: PATIENT WAS FASTINGP ERFORMED BY: [facility] [facility] HospitalDuin [place] [id number] Neutrophils/100 WBC Auto (Bld) 55 % Normal [facility] Work Phone: Platelets (Bld) [#/Vol] 241 {x10E3/uL} Normal 150-379 [facility] Work Phone: Comment on above: PATIENT WAS FASTINGP ERFORMED BY: BIANCA [facility] Lsbjte7117 [address] RoadDublin [place] [id number] Platelets (Bld) [#/Vol] 241 10*3/uL Normal 150-379 [facility]; [facility] Work Phone: Comment on above: PATIENT WAS FASTINGP ERFORMED BY: BIANCA [facility] Nbgyiq8774 [address] RoadDublin [place] [id number] Platelets Auto #/vol (Bld) 241 {x10E3/uL} Normal 150-379 [facility] Work Phone: RBC (Bld) [#/Vol] 5.13 {x10E6/uL} Normal 4.14-5.80 [facility] Internal Medicine Work Phone: Comment on above: PATIENT WAS FASTINGP ERFORMED BY: BIANCA [facility] Ccfrnj1619 [address] RoadAtrium Health Lincolnin [place] [id number] RBC (Bld) [#/Vol] 5.13 10*6/uL Normal 4.14-5.80 [facility] Internal Medicine; [facility] Work Phone: Comment on above: PATIENT WAS FASTINGP ERFORMED BY: [facility] Utsind8391 [address] RoadDuin [place] [id number] RBC Auto #/vol (Bld) 5.13 {x10E6/uL} Normal 4.14-5.80 [facility] Internal Medicine Work Phone: WBC (Bld) [#/Vol] 4.5 {x10E3/uL} Normal 3.4-10.8 [facility] Internal Medicine Work Phone: Comment on above: PATIENT WAS FASTINGP ERFORMED BY: BIANCA [facility] Ijnsqt2525 [address] RoadDublin [place] [id number] WBC (Bld) [#/Vol] 4.5 10*3/uL Normal 3.4-10.8 [facility] Internal Medicine; [facility] Work Phone: Comment on above: PATIENT WAS FASTINGP ERFORMED BY: BIANCA Sequeira6370 eMarCritical access hospital [id number] WBC Auto #/vol (Bld) 4.5 {x10E3/uL} Normal 3.4-10.8 [facility] Work Phone: HgA1C , Office (08513)Ordere d By: Nadia Valerio on 08-01-2017 Hemoglobin A1c/Hemoglobin.total mass fraction (Bld) 5.4 % Normal 4.6 - 7.1 Comprehensiv e Internal Medicine Work Phone: LIPID PANEL (56997)Ordered B y: Data Reporting Analyst on 08-01-2017 Cholesterol in HDL mass conc 58 mg/dL Normal [facility] Work Phone: Comment on above: PATIENT WAS FASTINGP ERFORMED BY: BIANCA Morganlin6370 eMarCritical access hospital [id number] Cholesterol in LDL mass conc 150 mg/dL Abnormal 0-99 [facility] Work Phone: Comment on above: PATIENT WAS FASTINGP ERFORMED BY: BIANCA Morganlin6370 eMarCritical access hospital [id number] Cholesterol in LDL/Cholesterol in HDL mass ratio 2.6 {ratio_units} Normal 0.0-3.6 [facility] Work Phone: Comment on above: LDL/HDL Ratio Men Wo men 1/2 Avg.Risk 1.0 1.5 Avg.Risk 3.6 3.2 2X Avg.Risk 6.2 5.0 3X Avg.Risk 8.0 6.1 PATIENT WAS FASTINGP ERFORMED BY: BIANCA Allux MedicalLee MorganHhrgxf0014 eMarCritical access hospital [id number] Cholesterol in VLDL mass conc 18 mg/dL Normal 5-40 [facility] Work Phone: Comment on above: PATIENT WAS FASTINGP ERFORMED BY: BIANCA StantonLikeMe.Netpaolo MorganNueakn[address] TrunkbowCritical access hospital [id number] Cholesterol mass conc 226 mg/dL Abnormal 100-199 Com prehensive Internal Medicine Work Phone: Comment on above: PATIENT WAS FASTINGP ERFORMED BY: BIANCA [facility] Zrhzod7866 [address] RoadDublin [place] [id number] Triglyceride mass conc 89 mg/dL Normal 0-149 Co [facility] centerehensive Internal Medicine Work Phone: Comment on above: PATIENT WAS FASTINGP ERFORMED BY: CB [facility] Djxizg9474 [address] RoadDublin [place] [id number] METABOLIC PANEL, COMPREHENSI VE (87508)Ordered By: Data Reporting Analyst on 08-01-2017 Albumin mass conc 4.4 g/dL Normal 3.5-5.5 Compreh ensive Internal Medicine Work Phone: Comment on above: PATIENT WAS FASTINGP ERFORMED BY: BIANCA [facility] Vgebho8185 [address] RoadDublin [place] [id number] Albumin/Globulin mass ratio 1.8 {ratio} Normal 1.2-2.2 [facility] Work Phone: Comment on above: PATIENT WAS FASTINGP ERFORMED BY: BIANCA [facility] Syewwi8086 [address] RoadDublin [place] [id number] ALP [Catalytic activity/Vol] 60 U/L Normal 39-117 [facility]; [facility] Work Phone: Comment on above: PATIENT WAS FASTINGP ERFORMED BY: BIANCA [facility] Ztadyo2721 [address] RoadDublin [place] [id number] ALP enzyme act/vol 60 [iU]/L Normal 39-117 [facility] Internal Medicine Work Phone: Comment on above: PATIENT WAS FASTINGP ERFORMED BY: CB [facility] Nbmdce6850 [address] RoadDublin [place] [id number] ALT [Catalytic activity/Vol] 21 U/L Normal 0-44 [facility]; [facility] Work Phone: Comment on above: PATIENT WAS FASTINGP ERFORMED BY: CB [facility] Wnalgd0275 [address] RoadDublin [place] [id number] ALT enzyme act/vol 21 [iU]/L Normal 0-44 [facility] Internal Medicine Work Phone: Comment on above: PATIENT WAS FASTINGP ERFORMED BY: BIANCA LabCopaolo MorganDnvhsb1217 [address] RoadDublin [place] [id number] AST [Catalytic activity/Vol] 18 U/L Normal 0-40 [facility]; [facility] Work Phone: Comment on above: PATIENT WAS FASTINGP ERFORMED BY: BIANCA LabCopaolo MorganFguujr5368 [address] Roadblin [place] [id number] AST enzyme act/vol 18 [iU]/L Normal 0-40 [facility] Internal Medicine Work Phone: Comment on above: PATIENT WAS FASTINGP ERFORMED BY: BIANCA LabCopaolo MorganVzqrhs0497 Valero RoadAtrium Health Lincolnin [place] [id number] Bilirubin mass conc 0.3 mg/dL Normal 0.0-1.2 Compr ensive Internal Medicine Work Phone: Comment on above: PATIENT WAS FASTINGP ERFORMED BY: BIANCA LabLee MorganVuzsef6121 [address] [facility] [place] [id number] Calcium mass conc 9.4 mg/dL Normal 8.7-10.2 Compreh ensive Internal Medicine Work Phone: Comment on above: PATIENT WAS FASTINGP ERFORMED BY: BIANCA LabLee MorganEnqegp0788 [address] [facility] [place] [id number] Chloride molar conc 100 mmol/L Normal 96-106 Compr ensive Internal Medicine Work Phone: Comment on above: PATIENT WAS FASTINGP ERFORMED BY: BIANCA LabLee MorganXzohov6763 [address] [facility] [place] [id number] CO2 molar conc 24 mmol/L Normal 18-29 Comprehens linh Internal Medicine Work Phone: Comment on above: PATIENT WAS FASTINGP ERFORMED BY: BIANCA [facility] Sffeuv2878 Val[address] Roadblin [place] [id number] Creatinine mass conc 0.97 mg/dL Normal 0.76-1.27 Comp rehensive Internal Medicine Work Phone: Comment on above: PATIENT WAS FASTINGP ERFORMED BY: BIANCA LabCopaolo Wrkgdz5864 [address] [facility] [place] [id number] GFR/1.73 sq M predicted among blacks CKD-EPI vol rate/area (S/P/Bld) 100 mL/min/1.73 Normal Comprehe nsive Internal Medicine Work Phone: Comment on above: PATIENT WAS FASTINGP ERFORMED BY: [facility] Vqkcvi8662 [address] [facility] [place] [id number] GFR/1.73 sq M predicted among non-blacks CKD-EPI vol rate/area (S/P/Bld) 87 mL/min/1.73 Normal [facility] Work Phone: Comment on above: PATIENT WAS FASTINGP ERFORMED BY: [facility] Hlfqte5383 [facility] [id number] Globulin (S) [Mass/Vol] 2.5 g/dL Normal 1.5-4.5 C omprehensive Internal Medicine Work Phone: Comment on above: PATIENT WAS FASTINGP ERFORMED BY: [facility] Eatjng8737 [address] [facility] [id number] Globulin Calculated mass conc (S) 2.5 g/dL Normal 1.5-4.5 [facility] Work Phone: Glucose mass conc 93 mg/dL Normal 65-99 Compreh ensive Internal Medicine Work Phone: Comment on above: PATIENT WAS FASTINGP ERFORMED BY: [facility] Istwnb0711 [facility] [id number] Potassium molar conc 4.5 mmol/L Normal 3.5-5.2 Comp rehensive Internal Medicine Work Phone: Comment on above: PATIENT WAS FASTINGP ERFORMED BY: [facility] Mjoqdw0616 [address] [facility] [place] [id number] Protein mass conc 6.9 g/dL Normal 6.0-8.5 Compreh ensive Internal Medicine Work Phone: Comment on above: PATIENT WAS FASTINGP ERFORMED BY: [facility] Snhsqp7402 [address] [facility] [id number] Sodium molar conc 141 mmol/L Normal 134-144 Compreh ensive Internal Medicine Work Phone: Comment on above: PATIENT WAS FASTINGP ERFORMED BY: BIANCA LabCopaolo Ilvsax4129 [address] abcdexpertsDublin [place] [id number] Urea nitrogen mass conc 11 mg/dL Normal 6-24 C omprehensive Internal Medicine Work Phone: Comment on above: PATIENT WAS FASTINGP ERFORMED BY: BIANCA [facility] Bvgoab8826 [address] abcdexpertsDublin [place] [id number] Urea nitrogen/Creatinine mass ratio 11 mg/mg Normal 9-20 [facility] Work Phone: Comment on above: PATIENT WAS FASTINGP ERFORMED BY: BIANCA LabCopaolo MorganKdzqpd8455 [address] Trunk[place]bl[place] [id number] MICROALBUMINOrdered By: Syst em Asphalt Dauber on 08-01-2017 Albumin DL <= 20 mg/L (U) [Mass/Vol] mg/dL Normal [facility]; [facility] Work Phone: Comment on above: PATIENT WAS FASTINGP ERFORMED BY: BIANCA [facility] Ybjqpj3836 [address] abcdexpertsAtrium Health Lincolnin [place] [id number] Albumin DL <= 20 mg/L mass conc (U) mg/dL Normal [facility] Work Phone: Comment on above: PATIENT WAS FASTINGP ERFORMED BY: BIANCA [facility] Uzzcex4679 [address] abcdexpertsDuin [place] [id number] Albumin/Creatinine mass ratio (U) MALD Abnormal 0.0-30.0 [facility] Work Phone: Comment on above: This result is below the assay's limit of quantitation indicating adilute specimen, potentially due to diurnal variation. Considerrecollection at a time likely to provide a more concentrated urine. PATIENT WAS FASTINGP ERFORMED BY: BIANCA [facility] Rizkwv6987 [address] abcdexpertsDublin [place] [id number] Creatinine mass conc (U) 100.7 mg/dL Normal [facility] Work Phone: Comment on above: PATIENT WAS FASTINGP ERFORMED BY: BIANCA [facility] Ulqpve1724 [address] abcdexpertsDublin [place] [id number] Microscopic ExaminationOrder ed By: Data Reporting Analyst on 08-01-2017 Bacteria LM.HPF #/area (Urine sed) [...] PSA (PROSTATE SPECIFIC ANTIG EN) (V76.44)Ordered By: Data Reporting Analyst on 08-01-2017 Prostate specific Ag mass conc 0.6 ng/mL Normal 0.0-4.0 [facility] Work Phone: Comment on above: [employer] ECLIA methodol ogy. .According to the [place] [employer] [employer], Serum PSA shoulddecrease and remain [...] malignant disease. PATIENT WAS FASTINGP ERFORMED BY: [employer]70 [facility] [id number] TSH ([id number])Ordered By: Kiromice m Asphalt Dauber on 08-01-2017 Thyrotropin Qn 1.870 {uIU/mL} Normal 0.450-4.50 0 [facility] Work Phone: Comment on above: PATIENT WAS FASTINGP ERFORMED BY: Zidisha6370 [facility] [id number] URINALYSIS, W/ MICRO ([id number]) Ordered By: Data Reporting Analyst on 08-01-2017 Appearance Nom (U) Clear Normal Compre hensive Internal Medicine Work Phone: Comment on above: PATIENT WAS FASTINGP ERFORMED BY: BIANCA [facility] Corfsh4763 [address]ero RoadDublin [place] [id number] Bilirubin Ql (U) Negative Normal Comprehe nsive Internal Medicine Work Phone: Comment on above: PATIENT WAS FASTINGP ERFORMED BY: BIANCA [facility] Tfnkux1722 [address] RoadDublin [place] [id number] Bilirubin Ql (U) Negative Normal Comprehe nsive Internal Medicine; [facility] Work Phone: Comment on above: PATIENT WAS FASTINGP ERFORMED BY: BIANCA [facility] Fjurlx7594 [address]ero RoadDublin [place] [id number] Color Nom (U) Yellow Normal Comprehensi ve Internal Medicine Work Phone: Comment on above: PATIENT WAS FASTINGP ERFORMED BY: BIANCA LabCopaolo MorganRvvuss3687 [address]ero RoadDublin [place] [id number] Glucose Ql (U) Negative Normal Comprehens linh Internal Medicine Work Phone: Comment on above: PATIENT WAS FASTINGP ERFORMED BY: BIANCA LabCopaolo MorganPodwzh1328 [address] RoadDublin [place] [id number] Glucose Ql (U) Negative Normal Comprehens linh Internal Medicine; [facility] Work Phone: Comment on above: PATIENT WAS FASTINGP ERFORMED BY: BIANCA [facility] Ooilhv9777 [address] RoadDublin [place] [id number] Hemoglobin Ql (U) Negative Normal Compreh ensive Internal Medicine Work Phone: Comment on above: PATIENT WAS FASTINGP ERFORMED BY: BIANCA [facility] Pugmkv5094 [address] RoadDublin [place] [id number] Hemoglobin Ql (U) Negative Normal Compreh ensive Internal Medicine; [facility] Work Phone: Comment on above: PATIENT WAS FASTINGP ERFORMED BY: BIANCA [facility] Gmxhhv2795 [address] RoadDublin [place] [id number] Hemoglobin Test strip Ql (U) Negative Normal [facility] Work Phone: Ketones Ql (U) Negative Normal Comprehens linh Internal Medicine Work Phone: Comment on above: PATIENT WAS FASTINGP ERFORMED BY: BIANCA [facility] Hdkcvc4707 [address] RoadDublin [place] [id number] Ketones Ql (U) Negative Normal Comprehens linh Internal Medicine; [facility] Work Phone: Comment on above: PATIENT WAS FASTINGP ERFORMED BY: BIANCA [facility] Lmgjnj2501 [address] RoadDublin [place] [id number] Leukocyte esterase Test strip Ql (U) Negative Normal [facility] Work Phone: Comment on above: PATIENT WAS FASTINGP ERFORMED BY: BIANCA [facility] Xhstov6325 [address] RoadDublin [place] [id number] Leukocyte esterase Test strip Ql (U) Negative Normal [facility]; [facility] Work Phone: Comment on above: PATIENT WAS FASTINGP ERFORMED BY: BIANCA [facility] Qvfikq4486 [address]ero RoadDublin [place] [id number] Microscopic observation LM Nom (Urine sed) See below: Normal [facility] Work Phone: Comment on above: Microscopic was nathaniel cated and was performed. PATIENT WAS FASTINGP ERFORMED BY: BIANCA [facility] Vymouy6782 [address]ero RoadDublin [place] [id number] Microscopic observation LM Nom (Urine sed) MICRON Normal [facility] Work Phone: Comment on above: Microscopic follows if indicated. PATIENT WAS FASTINGP ERFORMED BY: BIANCA [facility] Vrbsbb1020 [address]ero RoadDublin [place] [id number] Nitrite Ql (U) Negative Normal Comprehens linh Internal Medicine Work Phone: Comment on above: PATIENT WAS FASTINGP ERFORMED BY: BIANCA [facility] Mzdnkk1243 [address] RoadDublin [place] [id number] Nitrite Ql (U) Negative Normal Comprehens linh Internal Medicine; [facility] Work Phone: Comment on above: PATIENT WAS FASTINGP ERFORMED BY: BIANCA [facility] Uroddl4331 [address] RoadDublin [place] [id number] Nitrite Test strip Ql (U) Negative Normal [facility] Work Phone: pH (U) 6.5 [pH] Normal 5.0-7.5 [facility] Work Phone: Comment on above: PATIENT WAS FASTINGP ERFORMED BY: BIANCA [facility] Ancrau1419 [address] RoadDublin [place] [id number] pH Test strip (U) 6.5 [pH] Normal 5.0-7.5 Compreh ensive Internal Medicine Work Phone: Protein Ql (U) Negative Normal Comprehens linh Internal Medicine Work Phone: Comment on above: PATIENT WAS FASTINGP ERFORMED BY: BIANCA [facility] Vvpyxw4650 [address] RoadDublin [place] [id number] Protein Ql (U) Negative Normal Comprehens linh Internal Medicine; [facility] Work Phone: Comment on above: PATIENT WAS FASTINGP ERFORMED BY: BIANCA [facility] Jegfhd2073 [address] RoadDublin [place] [id number] Protein Test strip Ql (U) Negative Normal [facility] Work Phone: Specific gravity Relative Density (U) 1.017 1 Normal 1.005-1.03 0 [facility] Work Phone: Comment on above: PATIENT WAS FASTINGP ERFORMED BY: BIANCA [facility] Iquhaq3588 [address] RoadDublin [place] [id number] Urobilinogen (U) [Mass/Vol] 0.2 mg/dL Normal 0.2-1.0 [facility]; [facility] Work Phone: Comment on above: PATIENT WAS FASTINGP ERFORMED BY: CB [facility] Nklkbu1611 [address] RoadDublin [place] [id number] Urobilinogen Test strip mass conc (U) 0.2 mg/dL Normal 0.2-1.0 [facility] Work Phone: Comment on above: PATIENT WAS FASTINGP ERFORMED BY: BIANCA [facility] Tmeisn3213 [address] RoadDublin [place] [id number] Blood Glucose , Office ([phone])Ordered By: Josefa Reinoso on 03-27-2016 Glucose Glucometer molar conc (BldC) 108 1 Normal [facility] Work Phone: CBC W/AUTO DIFF WBC (75617)O rdered By: Data Reporting Analyst on 03-27-2016 Basophils (Bld) [#/Vol] 0.0 {x10E3/uL} Normal 0.0-0.2 [facility] Work Phone: Comment on above: PATIENT WAS FASTINGP ERFORMED BY: [address] [id number] Information: [id number] Basophils (Bld) [#/Vol] 0.0 10*3/uL Normal 0.0-0.2 [facility]; [facility] Work Phone: Comment on above: PATIENT WAS FASTINGP ERFORMED BY: [address] [id number] Information: [id number] Basophils Auto #/vol (Bld) 0.0 {x10E3/uL} Normal 0.0-0.2 [facility] Work Phone: Basophils/100 WBC (Bld) 1 % Normal C omprehensive Internal Medicine Work Phone: Comment on above: PATIENT WAS FASTINGP ERFORMED BY: [address] [id number] Information: [id number] Basophils/100 WBC Auto (Bld) 1 % Normal [facility] Work Phone: Eosinophils (Bld) [#/Vol] 0.2 {x10E3/uL} Normal 0.0-0.4 [facility] Work Phone: Comment on above: PATIENT WAS FASTINGP ERFORMED BY: [address] [id number] Information: [id number] Eosinophils (Bld) [#/Vol] 0.2 10*3/uL Normal 0.0-0.4 [facility]; [facility] Work Phone: Comment on above: PATIENT WAS FASTINGP ERFORMED BY: [facility]6370 [facility] [id number] Information: [id number] Eosinophils Auto #/vol (Bld) 0.2 {x10E3/uL} Normal 0.0-0.4 [facility] Work Phone: Eosinophils/100 WBC (Bld) 3 % Normal [facility] Work Phone: Comment on above: PATIENT WAS FASTINGP ERFORMED BY: [address] [id number] Information: [id number] Eosinophils/100 WBC Auto (Bld) 3 % Normal [facility] Work Phone: Erythrocyte distribution width (RBC) [Ratio] 13.1 % Normal 12.3-15.4 [facility] Work Phone: Comment on above: PATIENT WAS FASTINGP ERFORMED BY: [address] [id number] Information: [id number] Erythrocyte distribution width Auto Ratio (RBC) 13.1 % Normal 12.3-15.4 [facility] Work Phone: Hematocrit (Bld) [Volume fraction] 43.9 % Normal 37.5-51.0 [facility] Work Phone: Comment on above: PATIENT WAS FASTINGP ERFORMED BY: [address] [id number] Information: [id number] Hematocrit Auto Volume Fraction (Bld) 43.9 % Normal 37.5-51.0 [facility] Work Phone: Hemoglobin mass conc (Bld) 14.4 g/dL Normal 12.6-17.7 [facility] Work Phone: Comment on above: PATIENT WAS FASTINGP ERFORMED BY: [place] [address]70470 [facility] [id number] Information: [id number] Immature granulocytes #/vol (Bld) 0.0 {x10E3/uL} Normal 0.0-0.1 [facility] Work Phone: Comment on above: PATIENT WAS FASTINGP ERFORMED BY: [place] 1570470 [facility] [id number] Information: [id number] Immature granulocytes (Bld) [#/Vol] 0.0 10*3/uL Normal 0.0-0.1 [facility]; [facility] Work Phone: Comment on above: PATIENT WAS FASTINGP ERFORMED BY: [address] [id number] Information: [id number] Immature granulocytes/100 WBC (Bld) 0 % Normal [facility] Work Phone: Comment on above: PATIENT WAS FASTINGP ERFORMED BY: [address] [id number] Information: [id number] Lymphocytes (Bld) [#/Vol] 1.2 {x10E3/uL} Normal 0.7-3.1 [facility] Work Phone: Comment on above: PATIENT WAS FASTINGP ERFORMED BY: [address] [id number] Information: [id number] Lymphocytes (Bld) [#/Vol] 1.2 10*3/uL Normal 0.7-3.1 [facility]; [facility] Work Phone: Comment on above: PATIENT WAS FASTINGP ERFORMED BY: [address] [id number] Information: [id number] Lymphocytes Auto #/vol (Bld) 1.2 {x10E3/uL} Normal 0.7-3.1 [facility] Work Phone: Lymphocytes/100 WBC (Bld) 20 % Normal [facility] Work Phone: Comment on above: PATIENT WAS FASTINGP ERFORMED BY: [facility]6370 [facility] [id number] Information: [id number] Lymphocytes/100 WBC Auto (Bld) 20 % Normal [facility] Work Phone: MCH (RBC) [Entitic mass] 28.6 pg Normal 26.6-33.0 [facility] Work Phone: Comment on above: PATIENT WAS FASTINGP ERFORMED BY: [place] 1570470 [facility] [id number] Information: [id number] MCH Auto Entitic mass (RBC) 28.6 pg Normal 26.6-33.0 [facility] Work Phone: MCHC (RBC) [Mass/Vol] 32.8 g/dL Normal 31.5-35.7 [facility] Internal Medicine Work Phone: Comment on above: PATIENT WAS FASTINGP ERFORMED BY: [place] 1570470 [facility] [id number] Information: [id number] MCHC Auto mass conc (RBC) 32.8 g/dL Normal 31.5-35.7 [facility] Work Phone: MCV (RBC) [Entitic vol] 87 fL Normal 79-97 [facility] Internal Medicine Work Phone: Comment on above: PATIENT WAS FASTINGP ERFORMED BY: [address] [id number] Information: [id number] MCV Auto Entitic volume (RBC) 87 fL Normal 79-97 [facility] Internal Medicine Work Phone: Monocytes (Bld) [#/Vol] 0.4 {x10E3/uL} Normal 0.1-0.9 [facility] Work Phone: Comment on above: PATIENT WAS FASTINGP ERFORMED BY: [place] 1570470 [facility] [id number] Information: [id number] Monocytes (Bld) [#/Vol] 0.4 10*3/uL Normal 0.1-0.9 [facility]; [facility] Work Phone: Comment on above: PATIENT WAS FASTINGP ERFORMED BY: BIANCA [facility] Eesaww7863 [facility] [id number] Information: [id number] Monocytes Auto #/vol (Bld) 0.4 {x10E3/uL} Normal 0.1-0.9 [facility] Work Phone: Monocytes/100 WBC (Bld) 7 % Normal C omprehensive Internal Medicine Work Phone: Comment on above: PATIENT WAS FASTINGP ERFORMED BY: BIANCA [facility] Hzboei5394 [facility] [id number] Information: [id number] Monocytes/100 WBC Auto (Bld) 7 % Normal [facility] Work Phone: Neutrophils (Bld) [#/Vol] 4.3 {x10E3/uL} Normal 1.4-7.0 [facility] Work Phone: Comment on above: PATIENT WAS FASTINGP ERFORMED BY: BIANCA Morganlin6370 [facility] [id number] Information: [id number] Neutrophils (Bld) [#/Vol] 4.3 10*3/uL Normal 1.4-7.0 [facility]; [facility] Work Phone: Comment on above: PATIENT WAS FASTINGP ERFORMED BY: BIANCA [facility]6370 [facility] [id number] Information: [id number] Neutrophils Auto #/vol (Bld) 4.3 {x10E3/uL} Normal 1.4-7.0 [facility] Work Phone: Neutrophils/100 WBC (Bld) 69 % Normal [facility] Work Phone: Comment on above: PATIENT WAS FASTINGP ERFORMED BY: BIANCA [place] [id number] [facility] [id number] Information: [id number] Neutrophils/100 WBC Auto (Bld) 69 % Normal [facility] Work Phone: Platelets (Bld) [#/Vol] 252 {x10E3/uL} Normal 150-379 [facility] Work Phone: Comment on above: PATIENT WAS FASTINGP ERFORMED BY: BIANCA [address] [id number] Information: [id number] Platelets (Bld) [#/Vol] 252 10*3/uL Normal 150-379 [facility] Internal Medicine; [facility] Work Phone: Comment on above: PATIENT WAS FASTINGP ERFORMED BY: BIANCA [facility] Cxtjcl1844 [facility] [id number] Information: [id number] Platelets Auto #/vol (Bld) 252 {x10E3/uL} Normal 150-379 [facility] Work Phone: RBC (Bld) [#/Vol] 5.04 {x10E6/uL} Normal 4.14-5.80 [facility] Internal Medicine Work Phone: Comment on above: PATIENT WAS FASTINGP ERFORMED BY: BIANCA [facility] HospitalYuri Lyvwoh1857 [facility] [id number] Information: [id number] RBC (Bld) [#/Vol] 5.04 10*6/uL Normal 4.14-5.80 [facility] Internal Medicine; [facility] Work Phone: Comment on above: PATIENT WAS FASTINGP ERFORMED BY: [place] 1570470 [facility] [id number] Information: [id number] RBC Auto #/vol (Bld) 5.04 {x10E6/uL} Normal 4.14-5.80 [facility] Internal Medicine Work Phone: WBC (Bld) [#/Vol] 6.2 {x10E3/uL} Normal 3.4-10.8 [facility] prehensive Internal Medicine Work Phone: Comment on above: PATIENT WAS FASTINGP ERFORMED BY: BIANCA LabLee Sequeira6370 [facility] [id number] Information: [id number] WBC (Bld) [#/Vol] 6.2 10*3/uL Normal 3.4-10.8 [facility]pre [facility] Internal Medicine; [facility] Work Phone: Comment on above: PATIENT WAS FASTINGP ERFORMED BY: BIANCA LabCoMatheny Medical and Educational CenterSvdixi7517 [facility] [id number] Information: [id number] WBC Auto #/vol (Bld) 6.2 {x10E3/uL} Normal 3.4-10.8 [facility] Work Phone: HgA1C , Office ([phone])Ordere d By: Josefa Reinoso on 03-27-2016 Hemoglobin A1c/Hemoglobin.total mass fraction (Bld) 5.5 % Normal 4.6 - 7.1 Comprehensiv e Internal Medicine Work Phone: LIPID PANEL ([phone])Ordered B y: Data Reporting Analyst on 03-27-2016 Cholesterol in HDL mass conc 61 mg/dL Normal [facility] Work Phone: Comment on above: According to ATP-III Guidelines, HDL-C >59 mg/dL is considered anegative risk factor for CHD. PATIENT WAS FASTINGP ERFORMED BY: BIANCA [place] Nephcd6377 [facility] [id number] Cholesterol in LDL mass conc 133 mg/dL Abnormal 0-99 [facility] Work Phone: Comment on above: PATIENT WAS FASTINGP ERFORMED BY: [place] SevenMatheny Medical and Educational CenterFpvrvq0267 [facility] [id number] Cholesterol in LDL/Cholesterol in HDL mass ratio 2.2 {ratio_units} Normal 0.0-3.6 [facility] Work Phone: Comment on above: LDL/HDL Ratio Men Wo men 1/2 Avg.Risk 1.0 1.5 Avg.Risk 3.6 3.2 2X Avg.Risk 6.2 5.0 3X Avg.Risk 8.0 6.1 PATIENT WAS FASTINGP ERFORMED BY: BIANCA MaximinoLee MorganLardib7311 [facility] [id number] Cholesterol in VLDL mass conc 20 mg/dL Normal 5-40 [facility] Work Phone: Comment on above: PATIENT WAS FASTINGP ERFORMED BY: BIANCA Morganlin6370 [facility] [id number] Cholesterol mass conc 214 mg/dL Abnormal 100-199 Com prehensive Internal Medicine Work Phone: Comment on above: PATIENT WAS FASTINGP ERFORMED BY: BIANCA Morganlin6370 [facility] [id number] Triglyceride mass conc 99 mg/dL Normal 0-149 Co mprehensive Internal Medicine Work Phone: Comment on above: PATIENT WAS FASTINGP ERFORMED BY: BIANCA Morganlin6370 [facility] [id number] METABOLIC PANEL, COMPREHENSI VE (00001)Ordered By: Data Reporting Analyst on 03-27-2016 Albumin mass conc 4.2 g/dL Normal 3.5-5.5 Compreh ensive Internal Medicine Work Phone: Comment on above: PATIENT WAS FASTINGP ERFORMED BY: BIANCA Alvarez Gfleqd5891 [facility] [id number] Albumin/Globulin mass ratio 1.8 {ratio} Normal 1.1-2.5 [facility] Work Phone: Comment on above: PATIENT WAS FASTINGP ERFORMED BY: BIANCA LabLee MorganSrfsjk2309 [facility] [id number] ALP [Catalytic activity/Vol] 55 U/L Normal 39-117 [facility]; [facility] Work Phone: Comment on above: PATIENT WAS FASTINGP ERFORMED BY: BIANCA LabLee MorganWuqudv5269 [facility] [id number] ALP enzyme act/vol 55 [iU]/L Normal 39-117 Compre [facility] Internal Medicine Work Phone: Comment on above: PATIENT WAS FASTINGP ERFORMED BY: BIANCA LabCopaolo MorganKdylws7[address] [facility] [place] [id number] ALT [Catalytic activity/Vol] 21 U/L Normal 0-44 [facility]; [facility] Internal Medicine Work Phone: Comment on above: PATIENT WAS FASTINGP ERFORMED BY: BIANCA LabCopaolo MorganRotxwc7428 [address] [facility] [place] [id number] ALT enzyme act/vol 21 [iU]/L Normal 0-44 [facility] Internal Medicine Work Phone: Comment on above: PATIENT WAS FASTINGP ERFORMED BY: BIANCA LabCopaolo MorganMebxgq3322 [address] [facility] [id number] AST [Catalytic activity/Vol] 19 U/L Normal 0-40 [facility] Internal Medicine; [facility] Internal Medicine Work Phone: Comment on above: PATIENT WAS FASTINGP ERFORMED BY: BIANCA Morganlin6370 [facility] [id number] AST enzyme act/vol 19 [iU]/L Normal 0-40 [facility] Internal Medicine Work Phone: Comment on above: PATIENT WAS FASTINGP ERFORMED BY: BIANCA LabLee MorganAjdgwr8547 [facility] [id number] Bilirubin mass conc 0.5 mg/dL Normal 0.0-1.2 [facility] Internal Medicine Work Phone: Comment on above: PATIENT WAS FASTINGP ERFORMED BY: BIANCA LabCopaolo MorganGeavhn9234 [facility] [id number] Calcium mass conc 9.2 mg/dL Normal 8.7-10.2 [facility] Internal Medicine Work Phone: Comment on above: PATIENT WAS FASTINGP ERFORMED BY: BIANCA LabCopaolo Tymxsa1536 [facility] [id number] Chloride molar conc 103 mmol/L Normal 97-108 [facility] Internal Medicine Work Phone: Comment on above: PATIENT WAS FASTINGP ERFORMED BY: BIANCA [facility]6370 [facility] [id number] CO2 molar conc 25 mmol/L Normal 18-29 Comprehens linh Internal Medicine Work Phone: Comment on above: PATIENT WAS FASTINGP ERFORMED BY: [facility] Bgxzqr0815 [facility] [id number] Creatinine mass conc 0.83 mg/dL Normal 0.76-1.27 Comp rehensive Internal Medicine Work Phone: Comment on above: PATIENT WAS FASTINGP ERFORMED BY: [facility]6370 [facility] [id number] GFR/1.73 sq M predicted among blacks CKD-EPI vol rate/area (S/P/Bld) 115 mL/min/1.73 Normal Comprehe nsive Internal Medicine Work Phone: Comment on above: PATIENT WAS FASTINGP ERFORMED BY: [facility]6370 [facility] [id number] GFR/1.73 sq M predicted among non-blacks CKD-EPI vol rate/area (S/P/Bld) 99 mL/min/1.73 Normal [facility] Work Phone: Comment on above: PATIENT WAS FASTINGP ERFORMED BY: [facility]6370 [facility] [id number] Globulin (S) [Mass/Vol] 2.4 g/dL Normal 1.5-4.5 C omprehensive Internal Medicine Work Phone: Comment on above: PATIENT WAS FASTINGP ERFORMED BY: [facility]Co Whvupd7537 [facility] [id number] Globulin Calculated mass conc (S) 2.4 g/dL Normal 1.5-4.5 [facility] Work Phone: Glucose mass conc 94 mg/dL Normal 65-99 Compreh ensive Internal Medicine Work Phone: Comment on above: PATIENT WAS FASTINGP ERFORMED BY: [facility] Axworo6237 [facility] [id number] Potassium molar conc 4.5 mmol/L Normal 3.5-5.2 Comp rehensive Internal Medicine Work Phone: Comment on above: PATIENT WAS FASTINGP ERFORMED BY: BIANCA Rocío Cetmyg9454 [facility] [place] [id number] Protein mass conc 6.6 g/dL Normal 6.0-8.5 Compreh ensive Internal Medicine Work Phone: Comment on above: PATIENT WAS FASTINGP ERFORMED BY: BIANCA Effiepaolo MorganObjznz9111 [facility] [id number] Sodium molar conc 143 mmol/L Normal 134-144 Compreh ensive Internal Medicine Work Phone: Comment on above: PATIENT WAS FASTINGP ERFORMED BY: BIANCA MaximinoLee MorganIvupgn4228 [facility] [id number] Urea nitrogen mass conc 14 mg/dL Normal 6-24 C omprehensive Internal Medicine Work Phone: Comment on above: PATIENT WAS FASTINGP ERFORMED BY: BIANCA Morganlin6370 [facility] [id number] Urea nitrogen/Creatinine mass ratio 17 mg/mg Normal 9-20 [facility] Work Phone: Comment on above: PATIENT WAS FASTINGP ERFORMED BY: BIANCA Morganlin6370 [facility] [id number] MICROALBUMINOrdered By: Syst em Asphalt Dauber on 03-27-2016 Albumin DL <= 20 mg/L (U) [Mass/Vol] mg/dL Normal [facility]; [facility] Work Phone: Comment on above: PATIENT WAS FASTINGP ERFORMED BY: BIANCA MaximinoLee MorganJwqoxd1910 [address] [facility] [place] [id number] Albumin DL <= 20 mg/L mass conc (U) mg/dL Normal [facility] Work Phone: Comment on above: PATIENT WAS FASTINGP ERFORMED BY: BIANCA MaximinoLee MorganBytcxb0062 [facility] [id number] Albumin/Creatinine mass ratio (U) <3.1 Normal 0.0-30.0 [facility] Work Phone: Comment on above: PATIENT WAS FASTINGP ERFORMED BY: [employer] Asbjle7292 [facility] [id number] Creatinine mass conc (U) 96.2 mg/dL Normal [facility] Work Phone: Comment on above: PATIENT WAS FASTINGP ERFORMED BY: [employer] Kpquye0561 [facility] [id number] Microscopic ExaminationOrder ed By: Data Reporting Analyst on 03-27-2016 Bacteria LM.HPF #/area (Urine sed) [...] Work Phone: PSA (PROSTATE SPECIFIC ANTIG EN) ([id number])Ordered By: Data Reporting Analyst on 03-27-2016 Prostate specific Ag mass conc 0.7 ng/mL Normal 0.0-4.0 [facility] Work Phone: Comment on above: Rupinder ECLIA methodol ogy. .According to the [place] [employer], Serum PSA shoulddecrease and remain [...] malignant disease. PATIENT WAS FASTINGP ERFORMED BY: [place] SevenMatheny Medical and Educational CenterSapart1619 [facility] [id number] TSH ([id number])Ordered By: Kiromice m Asphalt Dauber on 03-27-2016 Thyrotropin Qn 0.867 {uIU/mL} Normal 0.450-4.50 0 [facility] Work Phone: Comment on above: PATIENT WAS FASTINGP ERFORMED BY: BIANCA MaximinoLee MorganMkgxum5720 [address] RoadDublin [place] [id number] URINALYSIS, W/ MICRO ([id number]) Ordered By: Data Reporting Analyst on 03-27-2016 Appearance Nom (U) Clear Normal Compre hensive Internal Medicine Work Phone: Comment on above: PATIENT WAS FASTINGP ERFORMED BY: BIANCA MaximinoLee MorganZcsmcy0830 [address] RoadDublin [place] [id number] Bilirubin Ql (U) Negative Normal Comprehe nsive Internal Medicine Work Phone: Comment on above: PATIENT WAS FASTINGP ERFORMED BY: BIANCA MaximinoLee MorganMggxsn9521 [address] RoadDublin [place] [id number] Bilirubin Ql (U) Negative Normal Comprehe nsive Internal Medicine; [facility] Work Phone: Comment on above: PATIENT WAS FASTINGP ERFORMED BY: BIANCA Morganlin6370 [address]ublin [place] [id number] Color Nom (U) Yellow Normal Comprehensi ve Internal Medicine Work Phone: Comment on above: PATIENT WAS FASTINGP ERFORMED BY: BIANCA Morganlin6370 [address]ublin [place] [id number] Glucose Ql (U) Negative Normal Comprehens linh Internal Medicine Work Phone: Comment on above: PATIENT WAS FASTINGP ERFORMED BY: BIANCA Morganlin6370 [address] [place] [id number] Glucose Ql (U) Negative Normal Comprehens linh Internal Medicine; [facility] Work Phone: Comment on above: PATIENT WAS FASTINGP ERFORMED BY: BIANCA MaximinoLee MorganEhprzt4788 [address] RoadDublin [place] [id number] Hemoglobin Ql (U) Negative Normal Compreh ensive Internal Medicine Work Phone: Comment on above: PATIENT WAS FASTINGP ERFORMED BY: BIANCA Morganlin6370 [address]ublin [place] [id number] Hemoglobin Ql (U) Negative Normal Compreh ensive Internal Medicine; [facility] Work Phone: Comment on above: PATIENT WAS FASTINGP ERFORMED BY: BIANCA Sequeira6370 [facility] [id number] Hemoglobin Test strip Ql (U) Negative Normal [facility] Work Phone: Ketones Ql (U) Negative Normal Comprehens linh Internal Medicine Work Phone: Comment on above: PATIENT WAS FASTINGP ERFORMED BY: BIANCA Morganlin6370 [facility] [id number] Ketones Ql (U) Negative Normal Comprehens linh Internal Medicine; [facility] Work Phone: Comment on above: PATIENT WAS FASTINGP ERFORMED BY: BIANCA Morganlin6370 [facility] [id number] Leukocyte esterase Test strip Ql (U) Negative Normal [facility] Work Phone: Comment on above: PATIENT WAS FASTINGP ERFORMED BY: BIANCA Morganlin6370 [facility] [id number] Leukocyte esterase Test strip Ql (U) Negative Normal [facility]; [facility] Work Phone: Comment on above: PATIENT WAS FASTINGP ERFORMED BY: BIANCA Morganlin6370 [facility] [id number] Microscopic observation LM Nom (Urine sed) MICRON Normal [facility] Work Phone: Comment on above: Microscopic follows if indicated. PATIENT WAS FASTINGP ERFORMED BY: BIANCA Morganlin6370 [facility] [id number] Microscopic observation LM Nom (Urine sed) See below: Normal [facility] Work Phone: Comment on above: Microscopic was nathaniel cated and was performed. PATIENT WAS FASTINGP ERFORMED BY: BIANCA Morganlin6370 [facility] [id number] Nitrite Ql (U) Negative Normal Comprehens linh Internal Medicine Work Phone: Comment on above: PATIENT WAS FASTINGP ERFORMED BY: BIANCA Morganlin6370 [address] [place] [id number] Nitrite Ql (U) Negative Normal Comprehens linh Internal Medicine; [facility] Work Phone: Comment on above: PATIENT WAS FASTINGP ERFORMED BY: BIANCA Rocío Sequeira6370 [address]ublin [place] [id number] Nitrite Test strip Ql (U) Negative Normal [facility] Work Phone: pH (U) 7.0 [pH] Normal 5.0-7.5 [facility] Work Phone: Comment on above: PATIENT WAS FASTINGP ERFORMED BY: BIANCA LabYuri Lsmwnu6163 [address] RoadDublin [place] [id number] pH Test strip (U) 7.0 [pH] Normal 5.0-7.5 Compreh ensive Internal Medicine Work Phone: Protein Ql (U) Negative Normal Comprehens linh Internal Medicine Work Phone: Comment on above: PATIENT WAS FASTINGP ERFORMED BY: BIANCA Effie Orjccr1562 [address] RoadDublin [place] [id number] Protein Ql (U) Negative Normal Comprehens linh Internal Medicine; [facility] Work Phone: Comment on above: PATIENT WAS FASTINGP ERFORMED BY: BIANCA Rocío Fijhfd1393 [address] [facility] [place] [id number] Protein Test strip Ql (U) Negative Normal [facility] Work Phone: Specific gravity Relative Density (U) 1.019 1 Normal 1.005-1.03 0 [facility] Work Phone: Comment on above: PATIENT WAS FASTINGP ERFORMED BY: BIANCA LabSt[facility] Bjgxrj8404 [address] RoadDublin [place] [id number] Urobilinogen (U) [Mass/Vol] 0.2 mg/dL Normal 0.2-1.0 [facility]; [facility] Work Phone: Comment on above: PATIENT WAS FASTINGP ERFORMED BY: BIANCA LabSt. [facility] Gisnos0599 [address] RoadDublin [place] [id number] Urobilinogen Test strip mass conc (U) 0.2 mg/dL Normal 0.2-1.0 [facility] Internal Medicine Work Phone: Comment on above: PATIENT WAS FASTINGP ERFORMED BY: [facility] Mxifrn2295 [facility] [id number] Comp. Metabolic Panel (14)Or dered By: Data Reporting Analyst on 03-04-2015 Albumin mass conc 4.2 g/dL Normal 3.5-5.5 Compreh ensive Internal Medicine Work Phone: Albumin/Globulin mass ratio 2.0 {ratio} Normal 1.1-2.5 [facility] Internal Medicine Work Phone: ALP enzyme act/vol 51 [iU]/L Normal 39-117 Compre [facility] Internal Medicine Work Phone: ALT enzyme act/vol 26 [iU]/L Normal 0-44 Compre [facility] Internal Medicine Work Phone: AST enzyme act/vol 25 [iU]/L Normal 0-40 Compre [facility] Internal Medicine Work Phone: Bilirubin mass conc 0.2 mg/dL Normal 0.0-1.2 Compr ensive Internal Medicine Work Phone: Calcium mass conc 9.4 mg/dL Normal 8.7-10.2 Compreh ensive Internal Medicine Work Phone: Chloride molar conc 102 mmol/L Normal 97-108 Compr [facility] Internal Medicine Work Phone: CO2 molar conc 26 mmol/L Normal 18-29 Comprehens linh Internal Medicine Work Phone: Creatinine mass conc 1.10 mg/dL Normal 0.76-1.27 Comp [facility] Work Phone: GFR/1.73 sq M [...] 9-20 [facility] Work Phone: Hemoglobin [id number] By: Sy stem Asphalt Dauber on 03-04-2015 Hemoglobin A1c/Hemoglobin.total mass fraction (Bld) 5.4 % Normal 4.8-5.6 Comprehensiv e Internal Medicine Work Phone: Comment on above: . Increased risk for diabetes: 5.7 - 6.4 Diabetes: >6.4 Glycemic control for adults with diabetes: <7.0 Lipid Panel With LDL/HDL Rat ioOrdered By: Data Reporting Analyst on 03-04-2015 Cholesterol in HDL mass conc [...] Internal Medicine Work Phone: HgA1C , Office ([id number])Ordere d By: Laure Faith on 11-11-2014 Hemoglobin A1c/Hemoglobin.total mass fraction (Bld) 5.7 % Normal 4.6 - 7.1 Comprehensiv e Internal Medicine Work Phone: ESTEPHANIE (ANTINUCLEAR ANTIBODY) ( [id number])Ordered By: Data Reporting Analyst on 07-06-2014 Nuclear Ab Ql (S) Negative Normal Compreh ensive Internal Medicine Work Phone: Comment on above: PATIENT WAS FASTINGP ERFORMED BY: [employer] [place] [id number] Nuclear Ab Ql (S) Negative Normal Compreh ensive Internal Medicine; [facility] Work Phone: Comment on above: PATIENT WAS FASTINGP ERFORMED BY: [employer] [place] [id number] C-REACTIVE PROTEIN ([id number])Or dered By: Data Reporting Analyst on 07-06-2014 CRP mass conc 0.3 mg/L Normal 0.0-4.9 Comprehensi ve Internal Medicine Work Phone: Comment on above: PATIENT WAS FASTINGP ERFORMED BY: [employer] [place] [id number] CBC W/AUTO DIFF WBC (74035)O rdered By: Data Reporting Analyst on 07-06-2014 Basophils (Bld) [#/Vol] 0.1 {x10E3/uL} Normal 0.0-0.2 [facility] Work Phone: Comment on above: PATIENT WAS FASTINGP ERFORMED BY: [employer] [place] [id number] Information: [id number] Basophils (Bld) [#/Vol] 0.1 10*3/uL Normal 0.0-0.2 [facility]; [facility] Work Phone: Comment on above: PATIENT WAS FASTINGP ERFORMED BY: BIANCA [address] [id number] Information: [id number] Basophils Auto #/vol (Bld) 0.1 {x10E3/uL} Normal 0.0-0.2 [facility] Work Phone: Basophils/100 WBC (Bld) 1 % Normal C omprehensive Internal Medicine Work Phone: Comment on above: PATIENT WAS FASTINGP ERFORMED BY: BIANCA [address] [id number] Information: [id number] Basophils/100 WBC Auto (Bld) 1 % Normal [facility] Work Phone: Eosinophils (Bld) [#/Vol] 0.1 {x10E3/uL} Normal 0.0-0.4 [facility] Work Phone: Comment on above: PATIENT WAS FASTINGP ERFORMED BY: BIANCA [address] [id number] Information: [id number] Eosinophils (Bld) [#/Vol] 0.1 10*3/uL Normal 0.0-0.4 [facility]; [facility] Work Phone: Comment on above: PATIENT WAS FASTINGP ERFORMED BY: [address] [id number] Information: [id number] Eosinophils Auto #/vol (Bld) 0.1 {x10E3/uL} Normal 0.0-0.4 [facility] Work Phone: Eosinophils/100 WBC (Bld) 2 % Normal [facility] Work Phone: Comment on above: PATIENT WAS FASTINGP ERFORMED BY: BIANCA [address] [place] [id number] Information: [id number] Eosinophils/100 WBC Auto (Bld) 2 % Normal [facility] Work Phone: Erythrocyte distribution width (RBC) [Ratio] 13.4 % Normal 12.3-15.4 [facility] Work Phone: Comment on above: PATIENT WAS FASTINGP ERFORMED BY: [address] [id number] Information: [id number] Erythrocyte distribution width Auto Ratio (RBC) 13.4 % Normal 12.3-15.4 [facility] Work Phone: Hematocrit (Bld) [Volume fraction] 45.8 % Normal 37.5-51.0 [facility] Work Phone: Comment on above: PATIENT WAS FASTINGP ERFORMED BY: [address] [id number] Information: [id number] Hematocrit Auto Volume Fraction (Bld) 45.8 % Normal 37.5-51.0 [facility] Work Phone: Hemoglobin mass conc (Bld) 14.7 g/dL Normal 12.6-17.7 [facility] Work Phone: Comment on above: PATIENT WAS FASTINGP ERFORMED BY: [place] 1570470 [facility] [id number] Information: [id number] Immature granulocytes #/vol (Bld) 0.0 {x10E3/uL} Normal 0.0-0.1 [facility] Work Phone: Comment on above: PATIENT WAS FASTINGP ERFORMED BY: [place] 1570470 [facility] [id number] Information: [id number] Immature granulocytes (Bld) [#/Vol] 0.0 10*3/uL Normal 0.0-0.1 [facility]; [facility] Work Phone: Comment on above: PATIENT WAS FASTINGP ERFORMED BY: [facility]6370 [facility] [id number] Information: [id number] Immature granulocytes/100 WBC (Bld) 0 % Normal [facility] Work Phone: Comment on above: PATIENT WAS FASTINGP ERFORMED BY: [facility]6370 [facility] [id number] Information: [id number] Lymphocytes (Bld) [#/Vol] 1.2 {x10E3/uL} Normal 0.7-3.1 [facility] Work Phone: Comment on above: PATIENT WAS FASTINGP ERFORMED BY: [facility]6370 [facility] [id number] Information: [id number] Lymphocytes (Bld) [#/Vol] 1.2 10*3/uL Normal 0.7-3.1 [facility]; [facility] Work Phone: Comment on above: PATIENT WAS FASTINGP ERFORMED BY: [facility]6370 [facility] [id number] Information: [id number] Lymphocytes Auto #/vol (Bld) 1.2 {x10E3/uL} Normal 0.7-3.1 [facility] Work Phone: Lymphocytes/100 WBC (Bld) 21 % Normal [facility] Work Phone: Comment on above: PATIENT WAS FASTINGP ERFORMED BY: [facility]6370 [facility] [id number] Information: [id number] Lymphocytes/100 WBC Auto (Bld) 21 % Normal [facility] Work Phone: MCH (RBC) [Entitic mass] 27.4 pg Normal 26.6-33.0 [facility] Work Phone: Comment on above: PATIENT WAS FASTINGP ERFORMED BY: LabErica Ville 2688870 [facility] [id number] Information: [id number] MCH Auto Entitic mass (RBC) 27.4 pg Normal 26.6-33.0 [facility] Work Phone: MCHC (RBC) [Mass/Vol] 32.1 g/dL Normal 31.5-35.7 [facility] Work Phone: Comment on above: PATIENT WAS FASTINGP ERFORMED BY: BIANCA [place] 9825770 [facility] [id number] Information: [id number] MCHC Auto mass conc (RBC) 32.1 g/dL Normal 31.5-35.7 [facility] Work Phone: MCV (RBC) [Entitic vol] 85 fL Normal 79-97 C [facility] Internal Medicine Work Phone: Comment on above: PATIENT WAS FASTINGP ERFORMED BY: BIANCA [place] 9825770 [facility] [id number] Information: [id number] MCV Auto Entitic volume (RBC) 85 fL Normal 79-97 [facility] Work Phone: Monocytes (Bld) [#/Vol] 0.3 {x10E3/uL} Normal 0.1-0.9 [facility] Work Phone: Comment on above: PATIENT WAS FASTINGP ERFORMED BY: BIANCA [facility]6370 [facility] [id number] Information: [id number] Monocytes (Bld) [#/Vol] 0.3 10*3/uL Normal 0.1-0.9 [facility]; [facility] Work Phone: Comment on above: PATIENT WAS FASTINGP ERFORMED BY: BIANCA [facility]6370 [facility] [id number] Information: [id number] Monocytes Auto #/vol (Bld) 0.3 {x10E3/uL} Normal 0.1-0.9 [facility] Work Phone: Monocytes/100 WBC (Bld) 6 % Normal C omprehensive Internal Medicine Work Phone: Comment on above: PATIENT WAS FASTINGP ERFORMED BY: BIANCA MaximinoLee MorganUforcb6993 [facility] [id number] Information: [id number] Monocytes/100 WBC Auto (Bld) 6 % Normal [facility] Work Phone: Neutrophils (Bld) [#/Vol] 4.0 {x10E3/uL} Normal 1.4-7.0 [facility] Work Phone: Comment on above: PATIENT WAS FASTINGP ERFORMED BY: BIANCA Morganlin6370 [facility] [id number] Information: [id number] Neutrophils (Bld) [#/Vol] 4.0 10*3/uL Normal 1.4-7.0 [facility]; [facility] Work Phone: Comment on above: PATIENT WAS FASTINGP ERFORMED BY: BIANCA Morganlin6370 [facility] [id number] Information: [id number] Neutrophils Auto #/vol (Bld) 4.0 {x10E3/uL} Normal 1.4-7.0 [facility] Work Phone: Neutrophils/100 WBC (Bld) 70 % Normal [facility] Work Phone: Comment on above: PATIENT WAS FASTINGP ERFORMED BY: BIANCA [place] 9825770 [facility] [id number] Information: [id number] Neutrophils/100 WBC Auto (Bld) 70 % Normal [facility] Work Phone: Platelets (Bld) [#/Vol] 285 {x10E3/uL} Normal 150-379 [facility] Work Phone: Comment on above: PATIENT WAS FASTINGP ERFORMED BY: BIANCA [facility] Zekswd9308 [facility] [id number] Information: [id number] Platelets (Bld) [#/Vol] 285 10*3/uL Normal 150-379 [facility] Internal Medicine; [facility] Work Phone: Comment on above: PATIENT WAS FASTINGP ERFORMED BY: [facility]6370 [facility] [id number] Information: [id number] Platelets Auto #/vol (Bld) 285 {x10E3/uL} Normal 150-379 [facility] Internal Medicine Work Phone: RBC (Bld) [#/Vol] 5.37 {x10E6/uL} Normal 4.14-5.80 [facility] Internal Medicine Work Phone: Comment on above: PATIENT WAS FASTINGP ERFORMED BY: [place] 1570470 [facility] [id number] Information: [id number] RBC (Bld) [#/Vol] 5.37 10*6/uL Normal 4.14-5.80 [facility] Internal Medicine; [facility] Work Phone: Comment on above: PATIENT WAS FASTINGP ERFORMED BY: [place] 1570470 [facility] [id number] Information: [id number] RBC Auto #/vol (Bld) 5.37 {x10E6/uL} Normal 4.14-5.80 [facility] Internal Medicine Work Phone: WBC (Bld) [#/Vol] 5.7 {x10E3/uL} Normal 3.4-10.8 [facility] Internal Medicine Work Phone: Comment on above: PATIENT WAS FASTINGP ERFORMED BY: [place] 1570470 [facility] [id number] Information: [id number] WBC (Bld) [#/Vol] 5.7 10*3/uL Normal 3.4-10.8 [facility] Internal Medicine; [facility] Work Phone: Comment on above: PATIENT WAS FASTINGP ERFORMED BY: BIANCA Rocío Morganlin[address] [facility] [place] [id number] Information: [id number] WBC Auto #/vol (Bld) 5.7 {x10E3/uL} Normal 3.4-10.8 [facility] Work Phone: LIPID PANEL ([id number])Ordered B y: Data Reporting Analyst on 07-06-2014 Cholesterol in HDL mass conc 60 mg/dL Normal [facility] Work Phone: Comment on above: According to ATP-III Guidelines, HDL-C >59 mg/dL is considered anegative risk factor for CHD. PATIENT WAS FASTINGP ERFORMED BY: BIANCA Rocío Sequeira[address] [facility] [place] [id number] Cholesterol in LDL mass conc 118 mg/dL Abnormal 0-99 [facility] Work Phone: Comment on above: PATIENT WAS FASTINGP ERFORMED BY: BIANCA Effiepaolo Fgzyuw4784 [address] abcdexpertsAtrium Health Lincolnin [place] [id number] Cholesterol in LDL/Cholesterol in HDL mass ratio 2.0 {ratio_units} Normal 0.0-3.6 [facility] Work Phone: Comment on above: PATIENT WAS FASTINGP ERFORMED BY: BIANCA Effiepaolo Jfjege[address] [facility] [place] [id number] Cholesterol in VLDL mass conc 13 mg/dL Normal 5-40 [facility] Work Phone: Comment on above: PATIENT WAS FASTINGP ERFORMED BY: BIANCA [facility] Hipotv6623 [address] [facility] [place] [id number] Cholesterol mass conc 191 mg/dL Normal 100-199 Com prehensive Internal Medicine Work Phone: Comment on above: PATIENT WAS FASTINGP ERFORMED BY: BIANCA [facility] Wgkpub3[address] [facility] HospitalDublin [place] [id number] Triglyceride mass conc 66 mg/dL Normal 0-149 Co mprehensive [facility] Medicine Work Phone: Comment on above: PATIENT WAS FASTINGP ERFORMED BY: BIANCA [facility] Nxincs2740 [address] RoadDublin [place] [id number] METABOLIC PANEL, COMPREHENSI VE ([id number])Ordered By: Data Reporting Analyst on 07-06-2014 Albumin mass conc 4.5 g/dL Normal 3.5-5.5 Compreh [facility] Internal Medicine Work Phone: Comment on above: PATIENT WAS FASTINGP ERFORMED BY: BIANCA LabLee MorganNlywtx0872 [address] RoadDublin [place] [id number] Albumin/Globulin mass ratio 2.1 {ratio} Normal 1.1-2.5 [facility] Work Phone: Comment on above: PATIENT WAS FASTINGP ERFORMED BY: BIANCA [facility] Vwskqm3075 [address]ero RoadDublin [place] [id number] ALP [Catalytic activity/Vol] 57 U/L Normal 39-117 [facility]; [facility] Work Phone: Comment on above: PATIENT WAS FASTINGP ERFORMED BY: BIANCA LabLee MorganDahvzx9273 [address] RoadDublin [place] [id number] ALP enzyme act/vol 57 [iU]/L Normal 39-117 [facility] Internal Medicine Work Phone: Comment on above: PATIENT WAS FASTINGP ERFORMED BY: BIANCA LabCopaolo MorganEcnelv1182 [address] RoadDublin [place] [id number] ALT [Catalytic activity/Vol] 24 U/L Normal 0-44 [facility]; [facility] Work Phone: Comment on above: PATIENT WAS FASTINGP ERFORMED BY: BIANCA [facility] Veosub9485 [address] RoadDublin [place] [id number] ALT enzyme act/vol 24 [iU]/L Normal 0-44 [facility] Internal Medicine Work Phone: Comment on above: PATIENT WAS FASTINGP ERFORMED BY: BIANCA [facility] Jgloat7156 [address] RoadDublin [place] [id number] AST [Catalytic activity/Vol] 18 U/L Normal 0-40 [facility]; [facility] Work Phone: Comment on above: PATIENT WAS FASTINGP ERFORMED BY: BIANCA [facility] Wxmnnn3416 [address] RoadDublin [place] [id number] AST enzyme act/vol 18 [iU]/L Normal 0-40 Compre [facility] Internal Medicine Work Phone: Comment on above: PATIENT WAS FASTINGP ERFORMED BY: BIANCA [facility] Xsqpmv9758 [address] Roadblin [place] [id number] Bilirubin mass conc 0.3 mg/dL Normal 0.0-1.2 Compr ensive Internal Medicine Work Phone: Comment on above: PATIENT WAS FASTINGP ERFORMED BY: CB [facility] Mhlibj8629 [address] [facility] [place] [id number] Calcium mass conc 9.9 mg/dL Normal 8.7-10.2 Compreh bannerive Internal Medicine Work Phone: Comment on above: PATIENT WAS FASTINGP ERFORMED BY: [facility] Cejosd3555 [address] [facility] [id number] Chloride molar conc 99 mmol/L Normal 97-108 Compr [facility] Internal Medicine Work Phone: Comment on above: PATIENT WAS FASTINGP ERFORMED BY: [facility] Tznnrm[address]99 [address] [facility]in [place] [id number] CO2 molar conc 26 mmol/L Normal 18-29 Comprehens [facility] Internal Medicine Work Phone: Comment on above: PATIENT WAS FASTINGP ERFORMED BY: [facility] Lyzolf6[address] [facility] [id number] Creatinine mass conc 0.97 mg/dL Normal 0.76-1.27 Comp [facility] Internal Medicine Work Phone: Comment on above: PATIENT WAS FASTINGP ERFORMED BY: [facility] Bxatbq9331 [address] RoadAtrium Health Lincolnin [place] [id number] GFR/1.73 sq M predicted among blacks CKD-EPI vol rate/area (S/P/Bld) 103 mL/min/1.73 Normal Comprehe [facility] Internal Medicine Work Phone: Comment on above: PATIENT WAS FASTINGP ERFORMED BY: [facility] Lacoqq0814 [address] RoadAtrium Health Lincolnin [place] [id number] GFR/1.73 sq M predicted among non-blacks CKD-EPI vol rate/area (S/P/Bld) 89 mL/min/1.73 Normal [facility] Work Phone: Comment on above: PATIENT WAS FASTINGP ERFORMED BY: BIANCA Effiepaolo Detwvp7146 [facility] [id number] Globulin (S) [Mass/Vol] 2.1 g/dL Normal 1.5-4.5 C omprehensive Internal Medicine Work Phone: Comment on above: PATIENT WAS FASTINGP ERFORMED BY: BIANCA [facility]St[facility] Ozvagj4440 [facility] [id number] Globulin Calculated mass conc (S) 2.1 g/dL Normal 1.5-4.5 [facility] Work Phone: Glucose mass conc 100 mg/dL Abnormal 65-99 Compreh ensive Internal Medicine Work Phone: Comment on above: PATIENT WAS FASTINGP ERFORMED BY: BIANCA MaximinoSt. [facility] Iygalg0990 [facility] [id number] Potassium molar conc 5.0 mmol/L Normal 3.5-5.2 Comp rehensive Internal Medicine Work Phone: Comment on above: PATIENT WAS FASTINGP ERFORMED BY: BIANCA MaximinoSt. [facility] Zpvptd1876 [facility] [id number] Protein mass conc 6.6 g/dL Normal 6.0-8.5 Compreh ensive Internal Medicine Work Phone: Comment on above: PATIENT WAS FASTINGP ERFORMED BY: BIANCA LabSt. [facility] Yavzof3790 [facility] [id number] Sodium molar conc 140 mmol/L Normal 134-144 Compreh ensive Internal Medicine Work Phone: Comment on above: PATIENT WAS FASTINGP ERFORMED BY: BIANCA LabCo Kcvkqk8219 [facility] [id number] Urea nitrogen mass conc 12 mg/dL Normal 6-24 C omprehensive Internal Medicine Work Phone: Comment on above: PATIENT WAS FASTINGP ERFORMED BY: BIANCA LabSt. [facility] Ecspmo0227 [facility] [id number] Urea nitrogen/Creatinine mass ratio 12 mg/mg Normal 9-20 [facility] Work Phone: Comment on above: PATIENT WAS FASTINGP ERFORMED BY: Zidisha6370 [address] abcdexpertsAlleghany Health [id number] PSA (PROSTATE SPECIFIC ANTIG EN) (V76.44)Ordered By: Data Reporting Analyst on 07-06-2014 Prostate specific Ag mass conc 0.7 ng/mL Normal 0.0-4.0 [facility] Internal Medicine Work Phone: Comment on above: [employer] ECLIA methodol ogy. .According to the [place] [employer], Serum PSA shoulddecrease and remain [...] malignant disease. PATIENT WAS FASTINGP ERFORMED BY: Zidisha6370 ncycloAlleghany Health [id number] RHEUMATOID FACTOR-QUANT (708 81)Ordered By: Data Reporting Analyst on 07-06-2014 Rheumatoid factor Qn 9.5 {IU/mL} Normal 0.0-13.9 [facility] Work Phone: Comment on above: PATIENT WAS FASTINGP ERFORMED BY: Zidisha6370 ValeroDelverAlleghany Health [id number] Rheumatoid factor Qn 9.5 [IU]/mL Normal 0.0-13.9 [facility] prehensive Internal Medicine; [facility] Work Phone: Comment on above: PATIENT WAS FASTINGP ERFORMED BY: [employer]70 [facility]ero[facility] [id number] SED RATE ERYTHROCYTE ([id number]) Ordered By: Data Reporting Analyst on 07-06-2014 ESR Velocity (Bld) 2 mm/h Normal 0-30 [facility] Internal Medicine Work Phone: Comment on above: PATIENT WAS FASTINGP ERFORMED BY: Bills KhakisDublin [place] [id number] TSH ([id number])Ordered By: Syste m Asphalt Dauber on 07-06-2014 Thyrotropin Qn 1.120 {uIU/mL} Normal 0.450-4.50 0 [facility] Work Phone: Comment on above: PATIENT WAS FASTINGP ERFORMED BY: [facility]6370 [facility] [id number] VITAMIN B-12 (CYANOCOBALAMIN ) (18129)Ordered By: Data Reporting Analyst on 07-06-2014 Cobalamin (Vitamin B12) mass conc 522 pg/mL Normal 211-946 [facility] Work Phone: Comment on above: PATIENT WAS FASTINGP ERFORMED BY: [facility]6370 [facility] [id number] CBC WITH MANUAL DIFF ([id number]) Ordered By: Data Reporting Analyst on 06-24-2013 Basophils (Bld) [#/Vol] 0.1 {x10E3/uL} Normal 0.0-0.2 [facility] Work Phone: Comment on above: PATIENT WAS FASTINGP ERFORMED BY: [facility]6370 [facility] [id number] Information: [id number] Basophils (Bld) [#/Vol] 0.1 10*3/uL Normal 0.0-0.2 [facility]; [facility] Work Phone: Comment on above: PATIENT WAS FASTINGP ERFORMED BY: [facility]6370 [facility] [id number] Information: [id number] Basophils Auto #/vol (Bld) 0.1 {x10E3/uL} Normal 0.0-0.2 [facility] Work Phone: Basophils/100 WBC (Bld) 1 % Normal 0-3 C omprehensive Internal Medicine Work Phone: Comment on above: PATIENT WAS FASTINGP ERFORMED BY: LabFresen[facility]6370 [facility] [id number] Information: [id number] Basophils/100 WBC Auto (Bld) 1 % Normal 0-3 [facility] Work Phone: Eosinophils (Bld) [#/Vol] 0.2 {x10E3/uL} Normal 0.0-0.4 [facility] Work Phone: Comment on above: Please note refere nce interval change PATIENT WAS FASTINGP ERFORMED BY: [address] [id number] Information: [id number] Eosinophils (Bld) [#/Vol] 0.2 10*3/uL Normal 0.0-0.4 [facility]; [facility] Work Phone: Comment on above: Please note refere nce interval change PATIENT WAS FASTINGP ERFORMED BY: [place] [address]70470 [facility] [id number] Information: [id number] Eosinophils Auto #/vol (Bld) 0.2 {x10E3/uL} Normal 0.0-0.4 [facility] Work Phone: Comment on above: Please note refere nce interval change Eosinophils/100 WBC (Bld) 4 % Normal 0-5 [facility] Work Phone: Comment on above: Please note refere nce interval change PATIENT WAS FASTINGP ERFORMED BY: [place] 1570470 [facility] [id number] Information: [id number] Eosinophils/100 WBC Auto (Bld) 4 % Normal 0-5 [facility] Work Phone: Comment on above: Please note refere nce interval change Erythrocyte distribution width (RBC) [Ratio] 13.2 % Normal 12.3-15.4 [facility] Work Phone: Comment on above: PATIENT WAS FASTINGP ERFORMED BY: [address] [id number] Information: [id number] Erythrocyte distribution width Auto Ratio (RBC) 13.2 % Normal 12.3-15.4 [facility] Work Phone: Hematocrit (Bld) [Volume fraction] 44.2 % Normal 37.5-51.0 [facility] Work Phone: Comment on above: PATIENT WAS FASTINGP ERFORMED BY: [address] [id number] Information: [id number] Hematocrit Auto Volume Fraction (Bld) 44.2 % Normal 37.5-51.0 [facility] Work Phone: Hemoglobin mass conc (Bld) 15.2 g/dL Normal 12.6-17.7 [facility] Work Phone: Comment on above: PATIENT WAS FASTINGP ERFORMED BY: [address] [id number] Information: [id number] Immature granulocytes #/vol (Bld) 0.0 {x10E3/uL} Normal 0.0-0.1 [facility] Work Phone: Comment on above: PATIENT WAS FASTINGP ERFORMED BY: [place] [address]70470 [facility] [id number] Information: [id number] Immature granulocytes (Bld) [#/Vol] 0.0 10*3/uL Normal 0.0-0.1 [facility]; [facility] Work Phone: Comment on above: PATIENT WAS FASTINGP ERFORMED BY: [place] 1570470 [facility] [id number] Information: [id number] Immature granulocytes/100 WBC (Bld) 0 % Normal 0-2 [facility] Work Phone: Comment on above: PATIENT WAS FASTINGP ERFORMED BY: [place] 1570470 [facility] [id number] Information: [id number] Lymphocytes (Bld) [#/Vol] 1.2 {x10E3/uL} Normal 0.7-3.1 [facility] Work Phone: Comment on above: Please note refere nce interval change PATIENT WAS FASTINGP ERFORMED BY: [place] 1570470 [facility] [id number] Information: [id number] Lymphocytes (Bld) [#/Vol] 1.2 10*3/uL Normal 0.7-3.1 [facility]; [facility] Work Phone: Comment on above: Please note refere nce interval change PATIENT WAS FASTINGP ERFORMED BY: [address] [id number] Information: [id number] Lymphocytes Auto #/vol (Bld) 1.2 {x10E3/uL} Normal 0.7-3.1 [facility] Work Phone: Comment on above: Please note refere nce interval change Lymphocytes/100 WBC (Bld) 20 % Normal -46 [facility] Work Phone: Comment on above: Please note refere nce interval change PATIENT WAS FASTINGP ERFORMED BY: [place] [address]70470 [facility] [id number] Information: [id number] Lymphocytes/100 WBC Auto (Bld) 20 % Normal 14-46 [facility] Work Phone: Comment on above: Please note refere nce interval change MCH (RBC) [Entitic mass] 29.5 pg Normal 26.6-33.0 [facility] Work Phone: Comment on above: PATIENT WAS FASTINGP ERFORMED BY: [place] [address]70470 [facility] [id number] Information: [id number] MCH Auto Entitic mass (RBC) 29.5 pg Normal 26.6-33.0 [facility] Work Phone: MCHC (RBC) [Mass/Vol] 34.4 g/dL Normal 31.5-35.7 [facility] Internal Medicine Work Phone: Comment on above: PATIENT WAS FASTINGP ERFORMED BY: [address] [id number] Information: [id number] MCHC Auto mass conc (RBC) 34.4 g/dL Normal 31.5-35.7 [facility] Internal Medicine Work Phone: MCV (RBC) [Entitic vol] 86 fL Normal 79-97 C [facility] Internal Medicine Work Phone: Comment on above: PATIENT WAS FASTINGP ERFORMED BY: [address] [id number] Information: [id number] MCV Auto Entitic volume (RBC) 86 fL Normal 79-97 [facility] Internal Medicine Work Phone: Monocytes (Bld) [#/Vol] 0.4 {x10E3/uL} Normal 0.1-0.9 [facility] Work Phone: Comment on above: Please note refere nce interval change PATIENT WAS FASTINGP ERFORMED BY: [facility] [place] [address] [id number] Information: [id number] Monocytes (Bld) [#/Vol] 0.4 10*3/uL Normal 0.1-0.9 [facility]; [facility] Work Phone: Comment on above: Please note refere nce interval change PATIENT WAS FASTINGP ERFORMED BY: [place] 1570470 [facility] [id number] Information: [id number] Monocytes Auto #/vol (Bld) 0.4 {x10E3/uL} Normal 0.1-0.9 [facility] Work Phone: Comment on above: Please note refere nce interval change Monocytes/100 WBC (Bld) 6 % Normal 4-12 [facility] Internal Medicine Work Phone: Comment on above: Please note refere nce interval change PATIENT WAS FASTINGP ERFORMED BY: BIANCA [facility] Upwwra5543 [facility] [id number] Information: [id number] Monocytes/100 WBC Auto (Bld) 6 % Normal 4-12 [facility] Work Phone: Comment on above: Please note refere nce interval change Neutrophils (Bld) [#/Vol] 4.2 {x10E3/uL} Normal 1.4-7.0 [facility] Work Phone: Comment on above: Please note refere nce interval change PATIENT WAS FASTINGP ERFORMED BY: [place] [address]70470 [facility] [id number] Information: [id number] Neutrophils (Bld) [#/Vol] 4.2 10*3/uL Normal 1.4-7.0 [facility]; [facility] Work Phone: Comment on above: Please note refere nce interval change PATIENT WAS FASTINGP ERFORMED BY: [facility] Lvzico2205 [facility] [id number] Information: [id number] Neutrophils Auto #/vol (Bld) 4.2 {x10E3/uL} Normal 1.4-7.0 [facility] Work Phone: Comment on above: Please note refere nce interval change Neutrophils/100 WBC (Bld) 69 % Normal 40-74 [facility] Work Phone: Comment on above: Please note refere nce interval change PATIENT WAS FASTINGP ERFORMED BY: LabF[facility]6370 [facility] [id number] Information: [id number] Neutrophils/100 WBC Auto (Bld) 69 % Normal 40-74 [facility] Work Phone: Comment on above: Please note refere nce interval change Platelets (Bld) [#/Vol] 263 {x10E3/uL} Normal 155-379 [facility] Work Phone: Comment on above: Please note refere nce interval change PATIENT WAS FASTINGP ERFORMED BY: BIANCA [address] [id number] Information: [id number] Platelets (Bld) [#/Vol] 263 10*3/uL Normal 155-379 [facility] Internal Medicine; [facility] Internal Medicine Work Phone: Comment on above: Please note refere nce interval change PATIENT WAS FASTINGP ERFORMED BY: BIANCA [address] [id number] Information: [id number] Platelets Auto #/vol (Bld) 263 {x10E3/uL} Normal 155-379 [facility] Internal Medicine Work Phone: Comment on above: Please note refere nce interval change RBC (Bld) [#/Vol] 5.16 {x10E6/uL} Normal 4.14-5.80 [facility] Internal Medicine Work Phone: Comment on above: PATIENT WAS FASTINGP ERFORMED BY: BIANCA [place] [id number] [facility] [id number] Information: [id number] RBC (Bld) [#/Vol] 5.16 10*6/uL Normal 4.14-5.80 [facility] Internal Medicine; [facility] Internal Medicine Work Phone: Comment on above: PATIENT WAS FASTINGP ERFORMED BY: BIANCA [place] 9825770 [facility] [id number] Information: [id number] RBC Auto #/vol (Bld) 5.16 {x10E6/uL} Normal 4.14-5.80 [facility] Work Phone: WBC (Bld) [#/Vol] 6.0 {x10E3/uL} Normal 3.4-10.8 [facility] Internal Medicine Work Phone: Comment on above: Please note refere nce interval change PATIENT WAS FASTINGP ERFORMED BY: BIANCA [facility] Eobxay5936 [facility] [id number] Information: [id number] WBC (Bld) [#/Vol] 6.0 10*3/uL Normal 3.4-10.8 [facility] Internal Medicine; [facility] Work Phone: Comment on above: Please note refere nce interval change PATIENT WAS FASTINGP ERFORMED BY: BIANCA MaximinoCo Ustmez4587 [facility] [id number] Information: [id number] WBC Auto #/vol (Bld) 6.0 {x10E3/uL} Normal 3.4-10.8 [facility] Work Phone: Comment on above: Please note refere nce interval change LIPID PANEL ([id number])Ordered B y: Data Reporting Analyst on 06-24-2013 Cholesterol in HDL mass conc 67 mg/dL Normal [facility] Work Phone: Comment on above: According to ATP-III Guidelines, HDL-C >59 mg/dL is considered anegative risk factor for CHD. PATIENT WAS FASTINGP ERFORMED BY: BIANCA [facility] Nesail5768 [facility] [id number] Cholesterol in LDL mass conc 128 mg/dL Abnormal 0-99 [facility] Work Phone: Comment on above: PATIENT WAS FASTINGP ERFORMED BY: BIANCA [facility] Kqgjbw1198 [facility] [id number] Cholesterol in LDL/Cholesterol in HDL mass ratio 1.9 {ratio_units} Normal 0.0-3.6 [facility] Work Phone: Comment on above: PATIENT WAS FASTINGP ERFORMED BY: [facility] Kszwxh4739 [facility] [id number] Cholesterol in VLDL mass conc 25 mg/dL Normal 5-40 [facility] Work Phone: Comment on above: PATIENT WAS FASTINGP ERFORMED BY: BIANCA MaximinoLee MorganEbcmgg8695 [address] [facility] [id number] Cholesterol mass conc 220 mg/dL Abnormal 100-199 Com prehensive Internal Medicine Work Phone: Comment on above: PATIENT WAS FASTINGP ERFORMED BY: BIANCA LabLee MorganQvmrfn3589 [address] [facility] [id number] Triglyceride mass conc 124 mg/dL Normal 0-149 Co mprehensive Internal Medicine Work Phone: Comment on above: PATIENT WAS FASTINGP ERFORMED BY: BIANCA Morganlin6370 [facility] [id number] METABOLIC PANEL, COMPREHENSI VE (20942)Ordered By: Data Reporting Analyst on 06-24-2013 Albumin mass conc 4.5 g/dL Normal 3.5-5.5 Compreh ensive Internal Medicine Work Phone: Comment on above: PATIENT WAS FASTINGP ERFORMED BY: BIANCA Morganlin6[address] [facility] [place] [id number] Albumin/Globulin mass ratio 1.7 {ratio} Normal 1.1-2.5 [facility] Work Phone: Comment on above: PATIENT WAS FASTINGP ERFORMED BY: BIANCA Morganlin6370 [facility] [id number] ALP [Catalytic activity/Vol] 61 U/L Normal 44-102 [facility]; [facility] Work Phone: Comment on above: PATIENT WAS FASTINGP ERFORMED BY: BIANCA LabLee MorganDogliq3889 [address] [facility] [place] [id number] ALP enzyme act/vol 61 [iU]/L Normal 44-102 Compre [facility] Internal Medicine Work Phone: Comment on above: PATIENT WAS FASTINGP ERFORMED BY: BIANCA LabLee MorganVlkzvz5780 [address] [facility] [place] [id number] ALT [Catalytic activity/Vol] 27 U/L Normal 0-44 [facility]; [facility] Work Phone: Comment on above: PATIENT WAS FASTINGP ERFORMED BY: BIANCA LabLee Sequeira6370 [address] RoadDublin [place] [id number] ALT enzyme act/vol 27 [iU]/L Normal 0-44 Compre [facility] Internal Medicine Work Phone: Comment on above: PATIENT WAS FASTINGP ERFORMED BY: LabCo Qhxoip4557 [address] RoadDublin [place] [id number] AST [Catalytic activity/Vol] 22 U/L Normal 0-40 [facility]; [facility] Internal Medicine Work Phone: Comment on above: PATIENT WAS FASTINGP ERFORMED BY: BIANCA MaximinoYuri Wxrbhq0346 [address] RoadDublin [place] [id number] AST enzyme act/vol 22 [iU]/L Normal 0-40 [facility] Internal Medicine Work Phone: Comment on above: PATIENT WAS FASTINGP ERFORMED BY: BIANCA StantonSt[facility] Tfusfk0384 [address] Roadblin [place] [id number] Bilirubin mass conc 0.5 mg/dL Normal 0.0-1.2 Compr ensive Internal Medicine Work Phone: Comment on above: PATIENT WAS FASTINGP ERFORMED BY: BIANCA StantonSt. [facility] Kmykfq0629 [address] RoadDublin [place] [id number] Calcium mass conc 9.4 mg/dL Normal 8.7-10.2 Compreh ensive Internal Medicine Work Phone: Comment on above: PATIENT WAS FASTINGP ERFORMED BY: BIANCA LabSt. [facility] Wnvpij6675 [address] RoadDublin [place] [id number] Chloride molar conc 100 mmol/L Normal 97-108 Compr ehensive Internal Medicine Work Phone: Comment on above: PATIENT WAS FASTINGP ERFORMED BY: BIANCA [facility] Affwkq6909 [address] RoadDublin [place] [id number] CO2 molar conc 24 mmol/L Normal 19-28 Comprehens linh Internal Medicine Work Phone: Comment on above: PATIENT WAS FASTINGP ERFORMED BY: BIANCA [facility] Ryrmuu9870 [address] RoadAtrium Health Lincolnin [place] [id number] Creatinine mass conc 0.93 mg/dL Normal 0.76-1.27 Comp rehensive Internal Medicine Work Phone: Comment on above: PATIENT WAS FASTINGP ERFORMED BY: [facility] Lmttoo[address] [facility] [place] [id number] GFR/1.73 sq M predicted among blacks CKD-EPI vol rate/area (S/P/Bld) 109 mL/min/1.73 Normal Comprehe nsive Internal Medicine Work Phone: Comment on above: PATIENT WAS FASTINGP ERFORMED BY: LabF[facility] [facility] [place] [id number] GFR/1.73 sq M predicted among non-blacks CKD-EPI vol rate/area (S/P/Bld) 94 mL/min/1.73 Normal [facility] Work Phone: Comment on above: PATIENT WAS FASTINGP ERFORMED BY: LabMercy Mccune-Brooks HospitalLztpst4[address] [facility] [id number] Globulin (S) [Mass/Vol] 2.6 g/dL Normal 1.5-4.5 C omprehensive Internal Medicine Work Phone: Comment on above: PATIENT WAS FASTINGP ERFORMED BY: [facility] Hyveho5361 [facility] [id number] Globulin Calculated mass conc (S) 2.6 g/dL Normal 1.5-4.5 [facility] Work Phone: Glucose mass conc 88 mg/dL Normal 65-99 Compreh ensive Internal Medicine Work Phone: Comment on above: PATIENT WAS FASTINGP ERFORMED BY: [facility] Kecejb[address] [facility] [place] [id number] Potassium molar conc 4.4 mmol/L Normal 3.5-5.2 Comp rehensive Internal Medicine Work Phone: Comment on above: PATIENT WAS FASTINGP ERFORMED BY: [facility] Lhovna[address] [facility] [id number] Protein mass conc 7.1 g/dL Normal 6.0-8.5 Compreh ensive Internal Medicine Work Phone: Comment on above: PATIENT WAS FASTINGP ERFORMED BY: Allux MedicalFresen[facility]6370 [facility] [id number] Sodium molar conc 139 mmol/L Normal 134-144 Compreh ensive Internal Medicine Work Phone: Comment on above: PATIENT WAS FASTINGP ERFORMED BY: [facility]ux MedicalFresen[facility]6370 [facility] [id number] Urea nitrogen mass conc 11 mg/dL Normal 6-24 C omprehensive Internal Medicine Work Phone: Comment on above: PATIENT WAS FASTINGP ERFORMED BY: [place] SevenMatheny Medical and Educational CenterLrnlgu8029 [facility] [id number] Urea nitrogen/Creatinine mass ratio 12 mg/mg Normal 9-20 [facility] Work Phone: Comment on above: PATIENT WAS FASTINGP ERFORMED BY: [place] SevenMatheny Medical and Educational CenterCfyqgp2304 [facility] [id number] Microscopic ExaminationOrder ed By: Data Reporting Analyst on 06-24-2013 Bacteria LM.HPF #/area (Urine sed) [...] PSA (PROSTATE SPECIFIC ANTIG EN) (V76.44)Ordered By: Data Reporting Analyst on 06-24-2013 Prostate specific Ag mass conc 0.6 ng/mL Normal 0.0-4.0 [facility] Work Phone: Comment on above: Rupinder ECLIA methodol ogy. .According to the [place] [employer] [employer], Serum PSA shoulddecrease and remain [...] PATIENT WAS FASTINGP ERFORMED BY: BIANCA [facility] Hvydcx0395 [address] RoadDublin [place] [id number] URINALYSIS, W/ MICRO ([id number]) Ordered By: Data Reporting Analyst on 06-24-2013 Appearance Nom (U) Clear Normal Compre hensive Internal Medicine Work Phone: Comment on above: PATIENT WAS FASTINGP ERFORMED BY: BIANCA [facility] Nrwfwq5185 [address] RoadDublin [place] [id number] Bilirubin Ql (U) Negative Normal Comprehe nsive Internal Medicine Work Phone: Comment on above: PATIENT WAS FASTINGP ERFORMED BY: CB [facility] Xctpgg3658 [address] RoadDublin [place] [id number] Bilirubin Ql (U) Negative Normal Comprehe nsive Internal Medicine; [facility] Work Phone: Comment on above: PATIENT WAS FASTINGP ERFORMED BY: BIANCA [facility] Frepnk7037 [address] RoadDublin [place] [id number] Color Nom (U) Yellow Normal Comprehensi ve Internal Medicine Work Phone: Comment on above: PATIENT WAS FASTINGP ERFORMED BY: CB [facility] Kfbxmm0750 [address] RoadDublin [place] [id number] Glucose Ql (U) Negative Normal Comprehens linh Internal Medicine Work Phone: Comment on above: PATIENT WAS FASTINGP ERFORMED BY: CB [facility] Ypfdhy5705 [address] RoadDublin [place] [id number] Glucose Ql (U) Negative Normal Comprehens linh Internal Medicine; [facility] Work Phone: Comment on above: PATIENT WAS FASTINGP ERFORMED BY: CB [facility] Fhxrek6230 [address] RoadDublin [place] [id number] Hemoglobin Ql (U) Negative Normal Compreh ensive Internal Medicine Work Phone: Comment on above: PATIENT WAS FASTINGP ERFORMED BY: BIANCA [facility] Iwmpzd0881 [address] RoadDublin [place] [id number] Hemoglobin Ql (U) Negative Normal Compreh ensive Internal Medicine; [facility] Work Phone: Comment on above: PATIENT WAS FASTINGP ERFORMED BY: BIANCA [facility] Vcuwro2229 [address] RoadDublin [place] [id number] Hemoglobin Test strip Ql (U) Negative Normal [facility] Work Phone: Ketones Ql (U) Negative Normal Comprehens linh Internal Medicine Work Phone: Comment on above: PATIENT WAS FASTINGP ERFORMED BY: BIANCA LabCopa[facility] Ueyivm1954 [address] RoadDublin [place] [id number] Ketones Ql (U) Negative Normal Comprehens linh Internal Medicine; [facility] Work Phone: Comment on above: PATIENT WAS FASTINGP ERFORMED BY: BIANCA [facility] Vvbpzm5308 [address] RoadDublin [place] [id number] Leukocyte esterase Test strip Ql (U) Negative Normal [facility] Work Phone: Comment on above: PATIENT WAS FASTINGP ERFORMED BY: BIANCA LabCopaolo Joiohc7200 [address] RoadDublin [place] [id number] Leukocyte esterase Test strip Ql (U) Negative Normal [facility]; [facility] Work Phone: Comment on above: PATIENT WAS FASTINGP ERFORMED BY: BIANCA [facility] Mknihf8239 [address] RoadDublin [place] [id number] Microscopic observation LM Nom (Urine sed) See below: Normal [facility] Work Phone: Comment on above: PATIENT WAS FASTINGP ERFORMED BY: BIANCA [facility] Abfrmi6500 [address] RoadDublin [place] [id number] Microscopic observation LM Nom (Urine sed) MICRON Normal [facility] Work Phone: Comment on above: Microscopic follows if indicated. PATIENT WAS FASTINGP ERFORMED BY: BIANCA [facility] Thxrbr7862 [address] RoadAtrium Health [facility]in [place] [id number] Nitrite Ql (U) Negative Normal Comprehens linh Internal Medicine Work Phone: Comment on above: PATIENT WAS FASTINGP ERFORMED BY: BIANCA Morganlin[address] [facility] [place] [id number] Nitrite Ql (U) Negative Normal Comprehens linh Internal Medicine; [facility] Work Phone: Comment on above: PATIENT WAS FASTINGP ERFORMED BY: BIANCA Morganlin[address] [facility] [place] [id number] Nitrite Test strip Ql (U) Negative Normal [facility] Work Phone: pH (U) 7.0 [pH] Normal 5.0-7.5 [facility] Work Phone: Comment on above: PATIENT WAS FASTINGP ERFORMED BY: BIANCA Sequeira6[address] [facility] [id number] pH Test strip (U) 7.0 [pH] Normal 5.0-7.5 Compreh ensive Internal Medicine Work Phone: Protein Ql (U) Negative Normal Comprehens linh Internal Medicine Work Phone: Comment on above: PATIENT WAS FASTINGP ERFORMED BY: BIANCA Morganlin6370 [facility] [id number] Protein Ql (U) Negative Normal Comprehens linh Internal Medicine; [facility] Work Phone: Comment on above: PATIENT WAS FASTINGP ERFORMED BY: BIANCA Morganlin6[address] [facility] [id number] Protein Test strip Ql (U) Negative Normal [facility] Work Phone: Specific gravity Relative Density (U) 1.022 1 Normal 1.005-1.03 0 [facility] Work Phone: Comment on above: PATIENT WAS FASTINGP ERFORMED BY: BIANCA Morganlin[address] [facility] [place] [id number] Urobilinogen (U) [Mass/Vol] 0.2 mg/dL Normal 0.0-1.9 [facility]; [facility] Work Phone: Comment on above: PATIENT WAS FASTINGP ERFORMED BY: BIANCA Sequeira6370 Anjum ChoiCritical access hospital [id number] Urobilinogen Test strip mass conc (U) 0.2 mg/dL Normal 0.0-1.9 [facility] Work Phone: Comment on above: PATIENT WAS FASTINGP ERFORMED BY: BIANCA Sequeira6370 Anjum ChoiCritical access hospital [id number] MYOCARD PERF STRESS/REST MUL TOrdered By: Data Reporting Analyst on 02-28-2011 MYOCARD PERF STRESS/REST MULT See [...] Blu Casiano MDTranscribed on 02/28/11 1046 by JEANNE LEWSign by Oh FONSECA,Blu on 02/28/11 1302 Sign by: Blu Casiano MD C-REACTIVE PROTEIN ([id number])Or dered By: Data Reporting Analyst on 02-17-2011 CRP mass conc 1.4 mg/L Normal 0.0-4.9 Comprehensi Internal Medicine Work Phone: Comment on above: PATIENT WAS FASTINGP ERFORMED BY: Zidisha6370 eMarCritical access hospital [id number] CBC WITH MANUAL DIFF ([id number]) Ordered By: Data Reporting Analyst on 02-17-2011 Basophils (Bld) [#/Vol] 0.1 {x10E3/uL} Normal 0.0-0.2 [facility] Internal Medicine Work Phone: Comment on above: PATIENT WAS FASTINGP ERFORMED BY: Zidisha6370 eMarCritical access hospital [id number] Information: [id number] Basophils (Bld) [#/Vol] 0.1 10*3/uL Normal 0.0-0.2 [facility]; [facility] Internal Medicine Work Phone: Comment on above: PATIENT WAS FASTINGP ERFORMED BY: Zidisha6370 eMarCritical access hospital [id number] Information: [id number] Basophils Auto #/vol (Bld) 0.1 {x10E3/uL} Normal 0.0-0.2 [facility] Work Phone: Basophils/100 WBC (Bld) 1 % Normal 0-3 C omprehensive Internal Medicine Work Phone: Comment on above: PATIENT WAS FASTINGP ERFORMED BY: BIANCA [place] [address]25770 [facility] [id number] Information: [id number] Basophils/100 WBC Auto (Bld) 1 % Normal 0-3 [facility] Work Phone: Eosinophils (Bld) [#/Vol] 0.2 {x10E3/uL} Normal 0.0-0.4 [facility] Work Phone: Comment on above: PATIENT WAS FASTINGP ERFORMED BY: BIANCA [place] 9825770 [facility] [id number] Information: [id number] Eosinophils (Bld) [#/Vol] 0.2 10*3/uL Normal 0.0-0.4 [facility]; [facility] Work Phone: Comment on above: PATIENT WAS FASTINGP ERFORMED BY: BIANCA [place] 9825770 [facility] [id number] Information: [id number] Eosinophils Auto #/vol (Bld) 0.2 {x10E3/uL} Normal 0.0-0.4 [facility] Work Phone: Eosinophils/100 WBC (Bld) 4 % Normal 0-7 [facility] Work Phone: Comment on above: PATIENT WAS FASTINGP ERFORMED BY: BIANCA [place] [address]25770 [facility] [id number] Information: [id number] Eosinophils/100 WBC Auto (Bld) 4 % Normal 0-7 [facility] Work Phone: Erythrocyte distribution width (RBC) [Ratio] 13.3 % Normal 11.7-15.0 [facility] Work Phone: Comment on above: PATIENT WAS FASTINGP ERFORMED BY: BIANCA [place] [address] [facility] [id number] Information: [id number] Erythrocyte distribution width Auto Ratio (RBC) 13.3 % Normal 11.7-15.0 [facility] Work Phone: Hematocrit (Bld) [Volume fraction] 43.2 % Normal 36.0-50.0 [facility] Work Phone: Comment on above: PATIENT WAS FASTINGP ERFORMED BY: BIANCA [facility]inoSt[facility] Cgirxh5056 [facility] [id number] Information: [id number] Hematocrit Auto Volume Fraction (Bld) 43.2 % Normal 36.0-50.0 [facility] Work Phone: Hemoglobin mass conc (Bld) 14.4 g/dL Normal 12.5-17.0 [facility] Work Phone: Comment on above: PATIENT WAS FASTINGP ERFORMED BY: BIANCA [place] 9825770 [facility] [id number] Information: [id number] Immature granulocytes #/vol (Bld) 0.0 {x10E3/uL} Normal 0.0-0.1 [facility] Work Phone: Comment on above: PATIENT WAS FASTINGP ERFORMED BY: BIANCA [facility]6370 [facility] [id number] Information: [id number] Immature granulocytes (Bld) [#/Vol] 0.0 10*3/uL Normal 0.0-0.1 [facility]; [facility] Work Phone: Comment on above: PATIENT WAS FASTINGP ERFORMED BY: BIANCA [place] [address]25770 [facility] [id number] Information: [id number] Immature granulocytes/100 WBC (Bld) 0 % Normal 0-1 [facility] Work Phone: Comment on above: PATIENT WAS FASTINGP ERFORMED BY: BIANCA [place] 9825770 [facility] [id number] Information: [id number] Lymphocytes (Bld) [#/Vol] 1.2 {x10E3/uL} Normal 0.7-4.5 [facility] Work Phone: Comment on above: PATIENT WAS FASTINGP ERFORMED BY: BIANCA [place] [address]25770 [facility] [id number] Information: [id number] Lymphocytes (Bld) [#/Vol] 1.2 10*3/uL Normal 0.7-4.5 [facility]; [facility] Work Phone: Comment on above: PATIENT WAS FASTINGP ERFORMED BY: BIANCA [place] [address]25770 [facility] [id number] Information: [id number] Lymphocytes Auto #/vol (Bld) 1.2 {x10E3/uL} Normal 0.7-4.5 [facility] Work Phone: Lymphocytes/100 WBC (Bld) 24 % Normal 14-46 [facility] Work Phone: Comment on above: PATIENT WAS FASTINGP ERFORMED BY: BIANCA [place] [address]25770 [facility] [id number] Information: [id number] Lymphocytes/100 WBC Auto (Bld) 24 % Normal 14-46 [facility] Work Phone: MCH (RBC) [Entitic mass] 28.5 pg Normal 27.0-34.0 [facility] Work Phone: Comment on above: PATIENT WAS FASTINGP ERFORMED BY: [facility]6370 [facility] [id number] Information: [id number] MCH Auto Entitic mass (RBC) 28.5 pg Normal 27.0-34.0 [facility] Work Phone: MCHC (RBC) [Mass/Vol] 33.3 g/dL Normal 32.0-36.0 [facility] prehensive Internal Medicine Work Phone: Comment on above: PATIENT WAS FASTINGP ERFORMED BY: [facility]6370 [facility] [id number] Information: [id number] MCHC Auto mass conc (RBC) 33.3 g/dL Normal 32.0-36.0 [facility] Work Phone: MCV (RBC) [Entitic vol] 86 fL Normal 80-98 C omprehensive Internal Medicine Work Phone: Comment on above: PATIENT WAS FASTINGP ERFORMED BY: [place] 1570470 [facility] [id number] Information: [id number] MCV Auto Entitic volume (RBC) 86 fL Normal 80-98 [facility] Work Phone: Monocytes (Bld) [#/Vol] 0.4 {x10E3/uL} Normal 0.1-1.0 [facility] Work Phone: Comment on above: PATIENT WAS FASTINGP ERFORMED BY: [place] 1570470 [facility] [id number] Information: [id number] Monocytes (Bld) [#/Vol] 0.4 10*3/uL Normal 0.1-1.0 [facility]; [facility] Work Phone: Comment on above: PATIENT WAS FASTINGP ERFORMED BY: [place] 1570470 [facility] [id number] Information: [id number] Monocytes Auto #/vol (Bld) 0.4 {x10E3/uL} Normal 0.1-1.0 [facility] Work Phone: Monocytes/100 WBC (Bld) 7 % Normal 4-13 C omprehensive Internal Medicine Work Phone: Comment on above: PATIENT WAS FASTINGP ERFORMED BY: [place] 1570470 [facility] [id number] Information: [id number] Monocytes/100 WBC Auto (Bld) 7 % Normal 4-13 [facility] Work Phone: Neutrophils (Bld) [#/Vol] 3.3 {x10E3/uL} Normal 1.8-7.8 [facility] Work Phone: Comment on above: PATIENT WAS FASTINGP ERFORMED BY: BIANCA Sequeira[address] [facility] [id number] Information: [id number] Neutrophils (Bld) [#/Vol] 3.3 10*3/uL Normal 1.8-7.8 [facility]; [facility] Work Phone: Comment on above: PATIENT WAS FASTINGP ERFORMED BY: BIANCA Morganlin6370 [facility] [id number] Information: [id number] Neutrophils Auto #/vol (Bld) 3.3 {x10E3/uL} Normal 1.8-7.8 [facility] Work Phone: Neutrophils/100 WBC (Bld) 64 % Normal 40-74 [facility] Work Phone: Comment on above: PATIENT WAS FASTINGP ERFORMED BY: BIANCA Sequeira6370 [facility] [id number] Information: [id number] Neutrophils/100 WBC Auto (Bld) 64 % Normal 40-74 [facility] Work Phone: Platelets (Bld) [#/Vol] 244 {x10E3/uL} Normal 140-415 [facility] Work Phone: Comment on above: PATIENT WAS FASTINGP ERFORMED BY: BIANCA Perry Wsaigx7342 [facility] [id number] Information: [id number] Platelets (Bld) [#/Vol] 244 10*3/uL Normal 140-415 [facility]; [facility] Work Phone: Comment on above: PATIENT WAS FASTINGP ERFORMED BY: BIANCA Morganlin6370 [facility] [id number] Information: [id number] Platelets Auto #/vol (Bld) 244 {x10E3/uL} Normal 140-415 [facility] Work Phone: RBC (Bld) [#/Vol] 5.05 {x10E6/uL} Normal 4.10-5.60 [facility] Internal Medicine Work Phone: Comment on above: PATIENT WAS FASTINGP ERFORMED BY: [place] 1570470 [facility] [id number] Information: [id number] RBC (Bld) [#/Vol] 5.05 10*6/uL Normal 4.10-5.60 [facility] Internal Medicine; [facility] Work Phone: Comment on above: PATIENT WAS FASTINGP ERFORMED BY: BIANCA [place] 9825770 [facility] [id number] Information: [id number] RBC Auto #/vol (Bld) 5.05 {x10E6/uL} Normal 4.10-5.60 [facility] Work Phone: WBC (Bld) [#/Vol] 5.2 {x10E3/uL} Normal 4.0-10.5 [facility] Internal Medicine Work Phone: Comment on above: PATIENT WAS FASTINGP ERFORMED BY: [facility]6370 [facility] [id number] Information: [id number] WBC (Bld) [#/Vol] 5.2 10*3/uL Normal 4.0-10.5 [facility] Internal Medicine; [facility] Work Phone: Comment on above: PATIENT WAS FASTINGP ERFORMED BY: [facility]6370 [facility] [id number] Information: [id number] WBC Auto #/vol (Bld) 5.2 {x10E3/uL} Normal 4.0-10.5 [facility] Work Phone: CHEST, PA AND LATERALOrdered By: Data Reporting Analyst on 02-17-2011 CHEST, PA AND LATERAL See [...] Sign by: BETTIE GOODWIN MD LIPID PANEL ([id number])Ordered B y: Data Reporting Analyst on 02-17-2011 Cholesterol in HDL mass conc 56 mg/dL Normal [facility] Work Phone: Comment on above: According to ATP-III Guidelines, HDL-C >59 mg/dL is considered anegative risk factor for CHD. PATIENT WAS FASTINGP ERFORMED BY: Zidisha6370 eMarCritical access hospital [id number] Cholesterol in LDL mass conc 123 mg/dL Abnormal 0-99 [facility] Work Phone: Comment on above: PATIENT WAS FASTINGP ERFORMED BY: Zidisha6370 [address] [place] [id number] Cholesterol in LDL/Cholesterol in HDL mass ratio 2.2 {ratio_units} Normal 0.0-3.6 [facility] Work Phone: Comment on above: PATIENT WAS FASTINGP ERFORMED BY: BIANCA LabCopaolo MorganKxhjrp9506 [facility] [id number] Cholesterol in VLDL mass conc 16 mg/dL Normal 5-40 [facility] Work Phone: Comment on above: PATIENT WAS FASTINGP ERFORMED BY: BIANCA Morganlin6370 [facility] [id number] Cholesterol mass conc 195 mg/dL Normal 100-199 Com prehensive Internal Medicine Work Phone: Comment on above: PATIENT WAS FASTINGP ERFORMED BY: BIANCA LabLee MorganUxidox6145 [facility] [id number] Triglyceride mass conc 80 mg/dL Normal 0-149 [facility]erehens[facility] Internal [facility] Work Phone: Comment on above: PATIENT WAS FASTINGP ERFORMED BY: BIANCA Morganlin6370 [facility] [id number] METABOLIC PANEL, COMPREHENSI VE ([id number])Ordered By: Data Reporting Analyst on 02-17-2011 Albumin mass conc 4.2 g/dL Normal 3.5-5.5 Compreh ensive Internal Medicine Work Phone: Comment on above: PATIENT WAS FASTINGP ERFORMED BY: BIANCA Morganlin6370 [facility] [id number] Albumin/Globulin mass ratio 1.8 {ratio} Normal 1.1-2.5 [facility] Work Phone: Comment on above: PATIENT WAS FASTINGP ERFORMED BY: BIANCA LabCopaolo MorganIpaloe0211 [facility] [id number] ALP [Catalytic activity/Vol] 59 U/L Normal 25-150 [facility]; [facility] Work Phone: Comment on above: PATIENT WAS FASTINGP ERFORMED BY: BIANCA LabLee MorganSrvcsx3855 [facility] [id number] ALP enzyme act/vol 59 [iU]/L Normal 25-150 Compre hensive Internal Medicine Work Phone: Comment on above: PATIENT WAS FASTINGP ERFORMED BY: BIANCA LabLee MorganCcqluh9819 [address] RoadDublin [place] [id number] ALT [Catalytic activity/Vol] 23 U/L Normal 0-55 [facility]; [facility] Internal Medicine Work Phone: Comment on above: PATIENT WAS FASTINGP ERFORMED BY: CB [facility] Tfisxd7203 [address] RoadDublin [place] [id number] ALT enzyme act/vol 23 [iU]/L Normal 0-55 [facility] Internal Medicine Work Phone: Comment on above: PATIENT WAS FASTINGP ERFORMED BY: CB [facility] Agpaik5256 [address] RoadDublin [place] [id number] AST [Catalytic activity/Vol] 20 U/L Normal 0-40 [facility]; [facility] Internal Medicine Work Phone: Comment on above: PATIENT WAS FASTINGP ERFORMED BY: [facility] Hjgzbd7816 [address] RoadDublin [place] [id number] AST enzyme act/vol 20 [iU]/L Normal 0-40 [facility] Internal Medicine Work Phone: Comment on above: PATIENT WAS FASTINGP ERFORMED BY: [facility] Qedusg3213 [address] RoadDublin [place] [id number] Bilirubin mass conc 0.5 mg/dL Normal 0.0-1.2 [facility] Internal Medicine Work Phone: Comment on above: PATIENT WAS FASTINGP ERFORMED BY: [facility] Zhleko5730 [address] RoadDublin [place] [id number] Calcium mass conc 9.3 mg/dL Normal 8.7-10.2 Compreh bannerive Internal Medicine Work Phone: Comment on above: PATIENT WAS FASTINGP ERFORMED BY: CB [facility] Ztjtsy2523 [address] RoadDublin [place] [id number] Chloride molar conc 101 mmol/L Normal 97-108 Compr ensive Internal Medicine Work Phone: Comment on above: PATIENT WAS FASTINGP ERFORMED BY: CB [facility] Vybltw9773 [address]aelro RoadDublin [place] [id number] CO2 molar conc 25 mmol/L Normal 20-32 Comprehens linh Internal Medicine Work Phone: Comment on above: PATIENT WAS FASTINGP ERFORMED BY: BIANCA [facility] Uxkgec5644 [facility] [id number] Creatinine mass conc 1.11 mg/dL Normal 0.76-1.27 Comp rehensive Internal Medicine Work Phone: Comment on above: PATIENT WAS FASTINGP ERFORMED BY: CB [facility] [id number] [facility] [id number] GFR/1.73 sq M predicted among blacks MDRD vol rate/area (S/P/Bld) 89 mL/min/{1.73_m2} Normal Comprehe nsive Internal Medicine Work Phone: Comment on above: Note: A persistent e GFR <60 mL/min/1.73 m2 (3 months or more) mayindicate chronic kidney disease. An eGFR >59 mL/min/1.73 m2 with anelevated urine protein also may indicate chronic kidney disease.Calculated using CKD-EPI formula. PATIENT WAS FASTINGP ERFORMED BY: BIANCA [facility] [id number] [facility] [id number] GFR/1.73 sq M predicted among non-blacks CKD-EPI vol rate/area (S/P/Bld) 77 mL/min/1.73 Normal [facility] Work Phone: Comment on above: PATIENT WAS FASTINGP ERFORMED BY: BIANCA [facility] [id number] [facility] [id number] Globulin (S) [Mass/Vol] 2.4 g/dL Normal 1.5-4.5 C omprehensive Internal Medicine Work Phone: Comment on above: PATIENT WAS FASTINGP ERFORMED BY: [facility] [id number] [facility] [id number] Globulin Calculated mass conc (S) 2.4 g/dL Normal 1.5-4.5 [facility] Work Phone: Glucose mass conc 93 mg/dL Normal 65-99 Compreh ensive Internal Medicine Work Phone: Comment on above: PATIENT WAS FASTINGP ERFORMED BY: [facility] [id number] [facility] [id number] Potassium molar conc 4.2 mmol/L Normal 3.5-5.2 Comp rehensive Internal Medicine Work Phone: Comment on above: PATIENT WAS FASTINGP ERFORMED BY: [facility] [id number] [facility] [id number] Protein mass conc 6.6 g/dL Normal 6.0-8.5 Compreh ensive Internal Medicine Work Phone: Comment on above: PATIENT WAS FASTINGP ERFORMED BY: [facility] [id number] [facility] [id number] Sodium molar conc 137 mmol/L Normal 135-145 Compreh ensive Internal Medicine Work Phone: Comment on above: PATIENT WAS FASTINGP ERFORMED BY: [facility] [id number] [facility] [id number] Urea nitrogen mass conc 14 mg/dL Normal 6-24 C omprehensive Internal Medicine Work Phone: Comment on above: PATIENT WAS FASTINGP ERFORMED BY: [facility] [id number] [facility] [id number] Urea nitrogen/Creatinine mass ratio 13 mg/mg Normal 9-20 [facility] Work Phone: Comment on above: PATIENT WAS FASTINGP ERFORMED BY: [facility] [id number] [facility] [id number] Microscopic ExaminationOrder ed By: Data Reporting Analyst on 02-17-2011 Bacteria LM.HPF #/area (Urine sed) [...] PSA (PROSTATE SPECIFIC ANTIG EN) (V76.44)Ordered By: Data Reporting Analyst on 02-17-2011 Prostate specific Ag mass conc 0.5 ng/mL Normal 0.0-4.0 [facility] Work Phone: Comment on above: Rupinder ECLIA methodol ogy. .According to the [place] [employer], Serum PSA shoulddecrease and remain [...] PATIENT WAS FASTINGP ERFORMED BY: CB [facility] [id number] [address] [place] [id number] SED RATE ERYTHROCYTE ([id number]) Ordered By: Data Reporting Analyst on 02-17-2011 ESR Velocity (Bld) 2 mm/h Normal 0-20 [facility] Work Phone: Comment on above: PATIENT WAS FASTINGP ERFORMED BY: CB [facility] [id number] [address] [place] [id number] URINALYSIS, W/ MICRO ([id number]) Ordered By: Data Reporting Analyst on 02-17-2011 Appearance Nom (U) Clear Normal Compre [facility] Internal Medicine Work Phone: Comment on above: PATIENT WAS FASTINGP ERFORMED BY: CB [facility] [id number] [address] [place] [id number] Bilirubin Ql (U) Negative Normal Comprehe nsive Internal Medicine Work Phone: Comment on above: PATIENT WAS FASTINGP ERFORMED BY: CB [facility] [id number] [address] RoadD[address] [place] [id number] Bilirubin Ql (U) Negative Normal Comprehe nsive Internal Medicine; [facility] Work Phone: Comment on above: PATIENT WAS FASTINGP ERFORMED BY: CB [facility] [id number] [address] [place] [id number] Color Nom (U) Yellow Normal Comprehensi ve Internal Medicine Work Phone: Comment on above: PATIENT WAS FASTINGP ERFORMED BY: BIANCA Peterson70 [address] [place] [id number] Glucose Ql (U) Negative Normal Comprehens linh Internal Medicine Work Phone: Comment on above: PATIENT WAS FASTINGP ERFORMED BY: BIANCA Teran [address] RoadDublin [place] [id number] Glucose Ql (U) Negative Normal Comprehens linh Internal Medicine; [facility] Work Phone: Comment on above: PATIENT WAS FASTINGP ERFORMED BY: BIANCA Teran [address] Road[address] [place] [id number] Hemoglobin Ql (U) Negative Normal Compreh ensive Internal Medicine Work Phone: Comment on above: PATIENT WAS FASTINGP ERFORMED BY: BIANCA Teran [address] [place] [id number] Hemoglobin Ql (U) Negative Normal Compreh ensive Internal Medicine; [facility] Work Phone: Comment on above: PATIENT WAS FASTINGP ERFORMED BY: BIANCA Teran [facility] [place] [id number] Hemoglobin Test strip Ql (U) Negative Normal [facility] Work Phone: Ketones Ql (U) Negative Normal Comprehens linh Internal Medicine Work Phone: Comment on above: PATIENT WAS FASTINGP ERFORMED BY: BIANCA Sequeira6370 [address] [place] [id number] Ketones Ql (U) Negative Normal Comprehens linh Internal Medicine; [facility] Work Phone: Comment on above: PATIENT WAS FASTINGP ERFORMED BY: BIANCA Sequeira6370 [address] [place] [id number] Leukocyte esterase Test strip Ql (U) Negative Normal [facility] Work Phone: Comment on above: PATIENT WAS FASTINGP ERFORMED BY: BIANCA Sequeira6370 [address] [place] [id number] Leukocyte esterase Test strip Ql (U) Negative Normal [facility]; [facility] Work Phone: Comment on above: PATIENT WAS FASTINGP ERFORMED BY: BIANCA Sequeira6370 [facility] [id number] Microscopic observation LM Nom (Urine sed) MICRON Normal [facility] Work Phone: Comment on above: Microscopic follows if indicated. PATIENT WAS FASTINGP ERFORMED BY: BIANCA Peterson70 [facility] [id number] Microscopic observation LM Nom (Urine sed) See below: Normal [facility] Work Phone: Comment on above: PATIENT WAS FASTINGP ERFORMED BY: BIANCA Sequeira6370 [facility] [id number] Nitrite Ql (U) Negative Normal Comprehens linh Internal Medicine Work Phone: Comment on above: PATIENT WAS FASTINGP ERFORMED BY: BIANCA Sequeira6370 [facility] [id number] Nitrite Ql (U) Negative Normal Comprehens linh Internal Medicine; [facility] Work Phone: Comment on above: PATIENT WAS FASTINGP ERFORMED BY: BIANCA Sequeira6370 [facility] [id number] Nitrite Test strip Ql (U) Negative Normal [facility] Work Phone: pH (U) 7.0 [pH] Normal 5.0-7.5 [facility] Work Phone: Comment on above: PATIENT WAS FASTINGP ERFORMED BY: BIANCA Sequeira6370 [facility] [id number] pH Test strip (U) 7.0 [pH] Normal 5.0-7.5 Compreh ensive Internal Medicine Work Phone: Protein Ql (U) Negative Normal Comprehens linh Internal Medicine Work Phone: Comment on above: PATIENT WAS FASTINGP ERFORMED BY: BIANCA [id number] [facility] [id number] Protein Ql (U) Negative Normal Comprehens linh Internal Medicine; [facility] Work Phone: Comment on above: PATIENT WAS FASTINGP ERFORMED BY: CB [facility] [id number] [address] [place] [id number] Protein Test strip Ql (U) Negative Normal [facility] Work Phone: Specific gravity Relative Density (U) 1.026 1 Normal 1.005-1.03 0 [facility] Work Phone: Comment on above: PATIENT WAS FASTINGP ERFORMED BY: CB [facility] [id number] [address] [place] [id number] Urobilinogen (U) [Mass/Vol] 0.2 mg/dL Normal 0.0-1.9 [facility]; [facility] Work Phone: Comment on above: PATIENT WAS FASTINGP ERFORMED BY: CB [facility] [id number] [address] [place] [id number] Urobilinogen Test strip mass conc (U) 0.2 mg/dL Normal 0.0-1.9 [facility] Work Phone: Comment on above: PATIENT WAS FASTINGP ERFORMED BY: CB [facility] [id number] [address] [place] [id number] Vital Signs Date Time Vital Sign Value Performing Clinician Facility 05-04-2025 08:50-0400 Body temperature 97.5 [degF] Dr. Heather Howe DO Work Phone: [facility] 05-04-2025 08:50-0400 Diastolic blood pressure 80 mm[Hg] Dr. Heather Howe DO Work Phone: [facility] 05-04-2025 08:50-0400 Heart rate 60 /min Dr. Heather Howe DO Work Phone: [facility] 05-04-2025 08:50-0400 Respiratory rate 16 /min Dr. Heather Howe DO Work Phone: [facility] 05-04-2025 08:50-0400 SaO2% (BldA) [Mass fraction] 98 % Dr. Heather Howe DO Work Phone: [facility] 05-04-2025 08:50-0400 Systolic blood pressure 119 mm[Hg] Dr. Heather Howe DO Work Phone: [facility] 05-04-2025 07:20-0400 Body height 180.[address] Heather Howe DO Work Phone: [facility] 05-04-2025 07:20-0400 Body mass index (BMI) [Ratio] 27.6 kg/m2 Dr. Heather Howe DO Work Phone: [facility] 05-04-2025 07:20-0400 Body weight 89.[address] Heather Howe DO Work Phone: [facility] 12-29-2024 08:41-0400 Body temperature 97.1 [degF] Dr. Heather Howe DO Work Phone: [facility] 12-29-2024 08:41-0400 Diastolic blood pressure 89 mm[Hg] Dr. Heather Howe DO Work Phone: [facility] 12-29-2024 08:41-0400 Heart rate 73 /min Dr. Heather Howe DO Work Phone: [facility] 12-29-2024 08:41-0400 Respiratory rate 16 /min Dr. Heather Howe DO Work Phone: [facility] 12-29-2024 08:41-0400 SaO2% (BldA) [Mass fraction] 98 % Dr. Heather Howe DO Work Phone: [facility] 12-29-2024 08:41-0400 Systolic blood pressure 124 mm[Hg] Dr. Heather Howe DO Work Phone: [facility] 12-29-2024 07:02-0400 Body height 180.[address] Heather Howe DO Work Phone: [facility] 12-29-2024 07:02-0400 Body mass index (BMI) [Ratio] 27.5 kg/m2 Dr. Heather Howe DO Work Phone: [facility] 12-29-2024 07:02-0400 Body weight 89.[address] Heather Howe DO Work Phone: [facility] 09-23-2024 09:01-0500 Body height 177.8 cm Mariah Larkint PALLIATIVE NURSE Work Phone: [facility] 09-23-2024 09:01-0500 Body mass index (BMI) [Ratio] 27.62 kg/m2 Mariah Weluluandt PALLIATIVE NURSE Work Phone: [facility] 09-23-2024 09:01-0500 Body weight 87.32 kg Mariah Carolinandt PALLIATIVE NURSE Work Phone: [facility] 09-23-2024 09:01-0500 Diastolic blood pressure 78 mm[Hg] Mariah Weluluandt PALLIATIVE NURSE Work Phone: [facility] 09-23-2024 09:01-0500 Heart rate 70 /min Mariah Weluluandt PALLIATIVE NURSE Work Phone: [facility] 09-23-2024 09:01-0500 SaO2% (BldA) [Mass fraction] 98 % Mariah Carolinandt PALLIATIVE NURSE Work Phone: [facility] 09-23-2024 09:01-0500 Systolic blood pressure 120 mm[Hg] Mariah Weluluandt PALLIATIVE NURSE Work Phone: [facility] 01-29-2023 09:43-0400 Body height 175.9 cm [facility]; [facility] Work Phone: 01-29-2023 09:43-0400 Body mass index (BMI) [Ratio] 28.04 kg/m2 [facility] Internal Medicine; [facility] Work Phone: 01-29-2023 09:43-0400 Body surface area Derived from formula 2.[address] [facility]; [facility] Work Phone: 01-29-2023 09:43-0400 Body temperature 97.6 [degF] Jayant Mason [facility] Comprehensiv e Internal Medicine; [facility] Work Phone: 01-29-2023 09:43-0400 Body weight 86.[address] [facility]; [facility] Work Phone: 01-29-2023 09:43-0400 Diastolic blood pressure 70 mm[Hg] Jayant Mason [facility]; [facility] Work Phone: Comment on above: Patient Position: Sitting; Cuff Location : Left Arm; Cuff Size: Standard 01-29-2023 09:43-0400 Heart rate 63 /min Jayant Mason [facility]; [facility] Work Phone: Comment on above: Pattern: Regular 01-29-2023 09:43-0400 Respiratory rate 16 /min Jayant Mason [facility] Comprehensiv e Internal Medicine; [facility] Work Phone: Comment on above: Pattern: Unlabored 01-29-2023 09:43-0400 SaO2% (BldA) [Mass fraction] 99 % Jayant Mason [facility]; [facility] Work Phone: Comment on above: Room air 01-29-2023 09:43-0400 Systolic blood pressure 120 mm[Hg] Jayant Mason [facility]; [facility] Work Phone: Comment on above: Patient Position: Sitting; Cuff Location : Left Arm; Cuff Size: Standard 01-23-2022 11:51-0400 Body height 175.[address] [facility]; [facility] Work Phone: 01-23-2022 11:51-0400 Body mass index (BMI) [Ratio] 28.66 kg/m2 [facility]; [facility] Work Phone: 01-23-2022 11:51-0400 Body surface area Derived from formula 2.05 m2 Licha Nur CMA [facility]; [facility] Work Phone: 01-23-2022 11:51-0400 Body temperature 97.3 [degF] Licha Nur CMA Comprehensiv e Internal Medicine; [facility] Work Phone: Comment on above: Method: Infrared 01-23-2022 11:51-0400 Body weight 88.[address] [facility]; [facility] Work Phone: 01-23-2022 11:51-0400 Diastolic blood pressure 80 mm[Hg] Licha Nur BEAM MACHINE OPERATOR [facility]; [facility] Work Phone: Comment on above: Patient Position: Sitting; Cuff Location : Left Arm; Cuff Size: Standard 01-23-2022 11:51-0400 Heart rate 64 /min Licha Nur [facility]; [facility] Work Phone: Comment on above: Pattern: Regular 01-23-2022 11:51-0400 Respiratory rate 16 /min Licha Nur CMA Comprehensiv e Internal Medicine; [facility] Work Phone: Comment on above: Pattern: Unlabored 01-23-2022 11:51-0400 SaO2% (BldA) [Mass fraction] 99 % Licha Nur [facility]; [facility] Work Phone: Comment on above: Room air 01-23-2022 11:51-0400 Systolic blood pressure 118 mm[Hg] Licha Nur CMA [facility]; [facility] Work Phone: Comment on above: Patient Position: Sitting; Cuff Location : Left Arm; Cuff Size: Standard 04-06-2021 08:00-0400 Body height 175.9 cm Heather Howe DO Work Phone: [facility]; [facility] Work Phone: 04-06-2021 08:00-0400 Body mass index (BMI) [Ratio] 27.64 kg/m2 Heather Shyam DO Work Phone: [facility]; [facility] Work Phone: 04-06-2021 08:00-0400 Body surface area Derived from formula 2.02 m2 Heather Shyam DO Work Phone: [facility]; [facility] Work Phone: 04-06-2021 08:00-0400 Body temperature 97.2 [degF] Heather Shyam DO Work Phone: [facility]; [facility] Work Phone: Comment on above: Method: Infrared 04-06-2021 08:00-0400 Body weight 85.5 kg Heather Howe DO Work Phone: [facility]; [facility] Work Phone: 04-06-2021 08:00-0400 Diastolic blood pressure 78 mm[Hg] Heather Shyam DO Work Phone: [facility] [...] SaO2% (BldA) [Mass fraction] 99 % Heather Locketton DO Work Phone: [facility]; [facility] Work Phone: Comment on above: Room air 04-06-2021 08:00-0400 Systolic blood pressure 138 mm[Hg] Heather Shyam DO Work Phone: [facility]; [facility] Work Phone: Comment on above: Patient Position: Sitting; Cuff Location : Left Arm; Cuff Size: Standard 01-31-2021 09:29-0400 Body height 175.9 cm Licha Nur CMA [facility]; [facility] Work Phone: 01-31-2021 09:29-0400 Body mass index (BMI) [Ratio] 28.08 kg/m2 Licha Nur [facility]; [facility] Work Phone: 01-31-2021 09:29-0400 Body surface area Derived from formula 2.[address] [facility]; [facility] Work Phone: 01-31-2021 09:29-0400 Body temperature 97.1 [degF] Licha Nur CMA Comprehensiv e Internal Medicine; [facility] Work Phone: Comment on above: Method: Infrared 01-31-2021 09:29-0400 Body weight 86.[address] [facility]; [facility] Work Phone: 01-31-2021 09:29-0400 Diastolic blood pressure 88 mm[Hg] Licha Nur [facility]; [facility] Work Phone: Comment on above: Patient Position: Sitting; Cuff Location : Left Arm; Cuff Size: Standard 01-31-2021 09:29-0400 Heart rate 72 /min Licha Nur [facility]; [facility] Work Phone: Comment on above: Pattern: Regular 01-31-2021 09:29-0400 Respiratory rate 16 /min Licha Nur BEAM MACHINE OPERATOR Comprehensiv e Internal Medicine; [facility] Work Phone: Comment on above: Pattern: Unlabored 01-31-2021 09:29-0400 SaO2% (BldA) [Mass fraction] 96 % Licha Nur [facility]; [facility] Work Phone: Comment on above: Room air 01-31-2021 09:29-0400 Systolic blood pressure 122 mm[Hg] Lichashelly Hubbardedgardo [facility]; [facility] Work Phone: Comment on above: Patient Position: Sitting; Cuff Location : Left Arm; Cuff Size: Standard 11-25-2020 06:56-0500 BMI (Body Mass Index) 28.08 kg/m2 [facility]; [facility] Work Phone: 11-25-2020 06:56-0500 Body weight 86.[address]; [facility] Work Phone: 11-25-2020 06:56-0500 BSA (Body Surface Area) 2.03 m2 [facility]; [facility] Work Phone: 11-25-2020 06:56-[address]; [facility] Work Phone: 11-22-2020 08:29-0500 BMI (Body Mass Index) 28.08 kg/m2 [facility]; [facility] Work Phone: 11-22-2020 08:29-0500 Body Temperature 97.1 [degF] [facility]; [facility] Work Phone: Comment on above: Method: Thermal Scan 11-22-2020 08:29-0500 Body weight 86.[address]; [facility] Work Phone: 11-22-2020 08:29-0500 BP Diastolic 70 mm[Hg] [facility]; [facility] Work Phone: Comment on above: Patient Position: Sitting; Cuff Location : Left Arm; Cuff Size: Standard 11-22-2020 08:29-0500 BP Systolic 116 mm[Hg] [facility]; [facility] Work Phone: Comment on above: Patient Position: Sitting; Cuff Location : Left Arm; Cuff Size: Standard 11-22-2020 08:29-0500 BSA (Body Surface Area) 2.[address]; [facility] Work Phone: 11-22-2020 08:29-[address]; [facility] Work Phone: 11-22-2020 08:29-0500 Pulse (Heart Rate) 62 /min [facility] Comprehensiv e Internal Medicine; [facility] Work Phone: Comment on above: Pattern: Regular 11-22-2020 08:29-0500 Pulse Oximetry 100 % Heather Howe [facility]; [facility] Work Phone: Comment on above: Room air 11-22-2020 08:29-0500 Respiratory Rate 16 /min [facility]; [facility] Work Phone: Comment on above: Pattern: Unlabored 11-22-2020 08:29-0500 SaO2% (BldA) [Mass fraction] 100 % [facility]; [facility] Work Phone: Comment on above: Room air 11-17-2020 08:04-0500 BMI (Body Mass Index) 28.08 kg/m2 Licha Nur [facility]; [facility] Work Phone: Comment on above: no vs taken as this is phone encounter d ue to covid 11-17-2020 08:04-0500 Body weight 86.[address] [facility]; [facility] Work Phone: Comment on above: no vs taken as this is phone encounter d ue to covid 11-17-2020 08:04-0500 BSA (Body Surface Area) 2.[address] [facility]; [facility] Work Phone: Comment on above: no vs taken as this is phone encounter d ue to covid 11-17-2020 08:04-0500 Height 175.[address] [facility]; [facility] Work Phone: Comment on above: no vs taken as this is phone encounter d ue to covid 08-24-2020 15:51-0500 BMI (Body Mass Index) 28.08 kg/m2 Josefina Meraz CNP Work Phone: [facility] Work Phone: 08-24-2020 15:51-0500 Body Temperature 98.4 [degF] Josefina Meraz GOLF STUD RIVETER Work Phone: [facility] Work Phone: 08-24-2020 15:51-0500 Body weight 86.86 kg Josefina Meraz CNP Work Phone: [facility] Work Phone: 08-24-2020 15:51-0500 BP Diastolic 79 mm[Hg] Josefina Meraz GOLF STUD RIVETER Work Phone: [facility] Work Phone: Comment on above: Patient Position: Supine; Cuff Location: Right Arm; Cuff Size: Standard 08-24-2020 15:51-0500 BP Systolic 122 mm[Hg] Josefina Meraz CNP Work Phone: [facility] Work Phone: Comment on above: Patient Position: Supine; Cuff Location: Right Arm; Cuff Size: Standard 08-24-2020 15:51-0500 BSA (Body Surface Area) 2.03 m2 Josefina Meraz CNP Work Phone: [facility] Work Phone: 08-24-2020 15:51-0500 Height 175.9 cm Josefina Meraz CNP Work Phone: [facility] Work Phone: 08-24-2020 15:51-0500 Pulse (Heart Rate) 75 /min Josefina Meraz GOLF STUD RIVETER Work Phone: [facility] Work Phone: Comment on above: Pattern: Regular 08-24-2020 15:51-0500 Pulse Oximetry 96 % Heather Howe [facility] Work Phone: Comment on above: Room air 08-24-2020 15:51-0500 SaO2% (BldA) [Mass fraction] 96 % Josefina Meraz CNP Work Phone: [facility]; [facility] Work Phone: Comment on above: Room air 11-12-2019 10:05-0500 BMI (Body Mass Index) 28.08 kg/m2 Licha Nur CMA [facility] Work Phone: 11-12-2019 10:05-0500 Body Temperature 97 [degF] Licha Nur CMA [facility] Work Phone: Comment on above: Method: Temporal 11-12-2019 10:05-0500 Body weight 86.86 kg Licha Nur CMA [facility] Work Phone: 11-12-2019 10:05-0500 BP Diastolic 74 mm[Hg] Licha Nur [facility] Work Phone: Comment on above: Patient Position: Sitting; Cuff Location : Left Arm; Cuff Size: Standard 11-12-2019 10:05-0500 BP Systolic 120 mm[Hg] Licha Nur BEAM MACHINE OPERATOR [facility] Work Phone: Comment on above: Patient Position: Sitting; Cuff Location : Left Arm; Cuff Size: Standard 11-12-2019 10:05-0500 BSA (Body Surface Area) 2.[address] [facility] Work Phone: 11-12-2019 10:05-0500 Height 175.9 cm Licha Nur BEAM MACHINE OPERATOR [facility] Work Phone: 11-12-2019 10:05-0500 Pulse (Heart Rate) 69 /min Licha Nur CMA Comprehens lin[facility] Medicine Work Phone: Comment on above: Pattern: Regular 11-12-2019 10:05-0500 Pulse Oximetry 99 % Heather Howe [facility] Work Phone: Comment on above: Room air 11-12-2019 10:05-0500 Respiratory Rate 16 /min Licha Nur CMA [facility] Work Phone: Comment on above: Pattern: Unlabored 11-12-2019 10:05-0500 SaO2% (BldA) [Mass fraction] 99 % Licha Nur CMA [facility]; [facility] Work [...] 11:52-0500 Pulse Oximetry 97 % Heather Howe [facility] Work Phone: Comment on above: Room air 10-01-2018 11:52-0500 Respiratory Rate 18 /min Lciha Nur CMA [facility] Work Phone: Comment on above: Pattern: Unlabored 10-01-2018 11:52-0500 SaO2% (BldA) [Mass fraction] 97 % Licha Nur [facility]; [facility] Work Phone: Comment on above: Room air 10-01-2018 11:52-0500 Weight 87.32 kg Heather Howe [facility] Work Phone: 08-01-2017 08:02-0400 BMI (Body Mass Index) 28.22 kg/m2 Nadia Valerio [facility] Internal Medicine Work Phone: 08-01-2017 08:02-0400 Body Temperature 98.1 [degF] Nadia Valerio [facility] Internal Medicine Work Phone: Comment on above: Method: Temporal 08-01-2017 08:02-0400 Body weight 87.32 kg Nadia Valerio [facility] Internal Medicine Work Phone: 08-01-2017 08:02-0400 BP Diastolic 74 mm[Hg] Nadia Valerio [facility] Medicine Work Phone: Comment on above: Patient Position: Sitting; Cuff Location : Left Arm; Cuff Size: Standard 08-01-2017 08:02-0400 BP Systolic 124 mm[Hg] Nadia Valerio [facility] Medicine Work Phone: Comment on above: Patient Position: Sitting; Cuff Location : Left Arm; Cuff Size: Standard 08-01-2017 08:02-0400 BSA (Body Surface Area) 2.04 m2 Nadia Valerio [facility] Internal Medicine Work Phone: 08-01-2017 08:02-0400 Height 175.9 cm [facility] Work Phone: 08-01-2017 08:02-0400 Pulse (Heart Rate) 77 /min Nadia Valerio [facility] Internal Medicine Work Phone: Comment on above: Pattern: Regular 08-01-2017 08:02-0400 Pulse Oximetry 98 % Heather Howe [facility] Internal Medicine Work Phone: Comment on above: Room air 08-01-2017 08:02-0400 Respiratory Rate 16 /min Nadia Wickcedrickcindy BEAM MACHINE OPERATOR [facility] Work Phone: Comment on above: Pattern: Unlabored 08-01-2017 08:02-0400 SaO2% (BldA) [Mass fraction] 98 % Nadia Valerio [facility]; [facility] Work Phone: Comment on above: Room air 08-01-2017 08:02-0400 Weight 87.32 kg Heather Howe [facility] Internal [facility] Work Phone: 03-27-2016 08:54-0400 BMI [...] (Heart Rate) 74 /min Josefa Reinoso RN [facility] Internal Medicine Work Phone: Comment on above: Pattern: Regular 03-27-2016 08:54-0400 Pulse Oximetry 98 % Heather Howe [facility] Work Phone: Comment on above: Room air 03-27-2016 08:54-0400 Respiratory Rate 18 /min Josefa Reinoso RN [facility] Work Phone: Comment on above: Pattern: Unlabored 03-27-2016 08:54-0400 SaO2% (BldA) [Mass fraction] 98 % Josefa Reinoso RN [facility]; [facility] Work Phone: Comment on above: Room air 03-27-2016 08:54-0400 Weight 88.23 kg Heather Shyam [facility] Work Phone: 02-07-2016 13:20-0400 BMI (Body Mass Index) 28.44 kg/m2 Iliana Slarb BOXER OPERATOR [facility] Work Phone: 02-07-2016 13:20-0400 Body Temperature 98.2 [degF] Iliana Slarb BOXER OPERATOR [facility] Work Phone: 02-07-2016 13:20-0400 Body weight 88 kg Iliana Slarb BOXER OPERATOR [facility] Work Phone: 02-07-2016 13:20-0400 BP Diastolic 80 mm[Hg] Iliana Slarb BOXER OPERATOR [facility] Work Phone: Comment on above: Patient Position: Sitting; Cuff Location : Left Arm; Cuff Size: Standard 02-07-2016 13:20-0400 BP Systolic 118 mm[Hg] Iliana Slarb BOXER OPERATOR [facility] Work Phone: Comment on above: Patient Position: Sitting; Cuff Location : Left Arm; Cuff Size: Standard 02-07-2016 13:20-0400 BSA (Body Surface Area) 2.04 m2 Iliana Slarb BOXER OPERATOR [facility] Work Phone: 02-07-2016 13:20-0400 Height 175.9 cm Iliana Slarb BOXER OPERATOR [facility] Work Phone: 02-07-2016 13:20-0400 Pulse (Heart Rate) 67 /min Iliana Slarb BOXER OPERATOR [facility] Work Phone: Comment on above: Pattern: Regular 02-07-2016 13:20-0400 Pulse Oximetry 99 % Heather Howe [facility] Work Phone: Comment on above: Room air 02-07-2016 13:20-0400 Respiratory Rate 17 /min Iliana Sheridan MCDUFFIE [facility] Internal Medicine Work Phone: Comment on above: Pattern: Unlabored 02-07-2016 13:20-0400 SaO2% (BldA) [Mass fraction] 99 % Iliana Sheridan MCDFUFIE [facility]; [facility] Work Phone: Comment on above: Room air 02-07-2016 13:20-0400 Weight 88 kg Heather Howe [facility] Work Phone: 11-17-2015 11:03-0500 BMI (Body Mass Index) 28 kg/m2 Laure Faith [facility] Work Phone: 11-17-2015 11:03-0500 Body Temperature 99 [degF] Laure Faith [facility] Work Phone: Comment on above: Method: Temporal 11-17-2015 11:03-0500 Body weight 86.64 kg Laure Faith [facility] Work Phone: 11-17-2015 11:03-0500 BP Diastolic 74 mm[Hg] Laure Faith [facility] Work Phone: Comment on above: Patient Position: Sitting; Cuff Location : Left Arm; Cuff Size: Standard 11-17-2015 11:03-0500 BP Systolic 116 mm[Hg] Laure Faith [facility] Work Phone: Comment on above: Patient Position: Sitting; Cuff Location : Left Arm; Cuff Size: Standard 11-17-2015 11:03-0500 BSA (Body Surface Area) 2.03 m2 Laure Faith [facility] Work Phone: 11-17-2015 11:03-0500 Height 175.9 cm Laure Faith [facility] Work Phone: 11-17-2015 11:03-0500 Pulse (Heart Rate) 72 /min [facility] Work Phone: Comment on above: Pattern: Regular 11-17-2015 11:03-0500 Pulse Oximetry 98 % Heather Howe [facility] Work Phone: Comment on above: Room air 11-17-2015 11:03-0500 Respiratory Rate 16 /min Laure Forbesralph [facility] Work Phone: Comment on above: Pattern: Unlabored 11-17-2015 11:03-0500 SaO2% (BldA) [Mass fraction] 98 % Laure Faith [facility]; [facility] Work Phone: Comment on above: Room air 11-17-2015 11:03-0500 Weight 86.64 kg Heather Howe [facility] Work Phone: 03-12-2015 08:25-0400 BMI (Body Mass Index) 27.71 kg/m2 Laure Marcell [facility] Work Phone: 03-12-2015 08:25-0400 Body Temperature 98.1 [degF] Laure Marcell [facility] Work Phone: Comment on above: Method: Oral 03-12-2015 08:25-0400 Body weight 85.73 kg Laure Marcell [facility] Work Phone: 03-12-2015 08:25-0400 BP Diastolic 68 mm[Hg] Laure Faith [facility] Work Phone: Comment on above: Patient Position: Sitting; Cuff Location : Left Arm; Cuff Size: Standard 03-12-2015 08:25-0400 BP Systolic 100 mm[Hg] Laure Marcell [facility] Work Phone: Comment on above: Patient Position: Sitting; Cuff Location : Left Arm; Cuff Size: Standard 03-12-2015 08:25-0400 BSA (Body Surface Area) 2.02 m2 Laure Faith [facility] Work Phone: 03-12-2015 08:25-0400 Height 175.9 cm Laure Faith [facility] Work Phone: 03-12-2015 08:25-0400 Pulse (Heart Rate) 74 /min Laure Faith [facility] Work Phone: Comment on above: Pattern: Regular 03-12-2015 08:25-0400 Respiratory Rate 16 /min Laure Faith [facility] Work Phone: Comment on above: Pattern: Unlabored 03-12-2015 08:25-0400 Weight 85.73 kg Heather Howe [facility] Work Phone: 11-11-2014 14:13-0500 BMI (Body Mass Index) 27.12 kg/m2 Laure Faith [facility] Work Phone: 11-11-2014 14:13-0500 Body Temperature 99.7 [degF] Laure Faith [facility] Work Phone: 11-11-2014 14:13-0500 Body weight 83.92 kg Laure Faith [facility] Work Phone: 11-11-2014 14:13-0500 BP Diastolic 62 mm[Hg] Laure Faith [facility] Work Phone: Comment on above: Patient Position: Sitting; Cuff Location : Left Arm; Cuff Size: Standard 11-11-2014 14:13-0500 BP Systolic 122 mm[Hg] Laure Faith [facility] Work Phone: Comment on above: Patient Position: Sitting; Cuff Location : Left Arm; Cuff Size: Standard 11-11-2014 14:13-0500 BSA (Body Surface Area) 2 m2 Laure Faith [facility] Work Phone: 11-11-2014 14:13-0500 Height 175.9 cm Laure Faith [facility] Work Phone: 11-11-2014 14:13-0500 Pulse (Heart Rate) 96 /min Laure Valdezensiv e Internal Medicine Work Phone: Comment on above: Pattern: Regular 11-11-2014 14:13-0500 Respiratory Rate 16 /min Laure Faith [facility] Work Phone: Comment on above: Pattern: Unlabored 11-11-2014 14:13-0500 Weight 83.92 kg Heather Howe [facility] Work Phone: 08-24-2014 10:50-0500 BMI (Body Mass Index) 26.98 kg/m2 Laure Faith [facility] Work Phone: 08-24-2014 10:50-0500 Body Temperature 98.5 [degF] Laure Faith [facility] Work Phone: 08-24-2014 10:50-0500 Body weight 83.46 kg Laure Faith [facility] Work Phone: 08-24-2014 10:50-0500 BP Diastolic 70 mm[Hg] Laure Faith [facility] Work Phone: Comment on above: Patient Position: Sitting; Cuff Location : Left Arm; Cuff Size: Standard 08-24-2014 10:50-0500 BP Systolic 104 mm[Hg] Laure Faith [facility] Work Phone: Comment on above: Patient Position: Sitting; Cuff Location : Left Arm; Cuff Size: Standard 08-24-2014 10:50-0500 BSA (Body Surface Area) 2 m2 Laure Allenlucas [facility] Internal Medicine Work Phone: 08-24-2014 10:50-0500 Height 175.9 cm Laure Forbesralph [facility] Medicine Work Phone: 08-24-2014 10:50-0500 Pulse (Heart Rate) 72 /min Laure Faith [facility] Internal Medicine Work Phone: Comment on above: Pattern: Regular 08-24-2014 10:50-0500 Respiratory Rate 16 /min Laure Allenlucas [facility] Work Phone: Comment on above: Pattern: Unlabored 08-24-2014 10:50-0500 Weight 83.46 kg Heather Howe [facility] Work Phone: 07-09-2014 09:03-0400 BMI (Body Mass Index) 26.68 kg/m2 Janny North LPN [facility] Work Phone: 07-09-2014 09:03-0400 Body weight 82.56 kg Janny North LPN [facility] Work Phone: 07-09-2014 09:03-0400 BP Diastolic 78 mm[Hg] Janny North RETA [facility] Work Phone: Comment on above: Patient Position: Sitting; Cuff Location : Left Arm; Cuff Size: Standard 07-09-2014 09:03-0400 BP Systolic 110 mm[Hg] Janny North LPN [facility] Work Phone: Comment on above: Patient Position: Sitting; Cuff Location : Left Arm; Cuff Size: Standard 07-09-2014 09:03-0400 BSA (Body Surface Area) 1.99 m2 Janny North RETA [facility] Work Phone: 07-09-2014 09:03-0400 Height 175.9 cm Janny North RETA [facility] Work Phone: 07-09-2014 09:03-0400 Pulse (Heart Rate) 80 /min Janny North LPN Comprehens lin[facility] Internal Medicine Work Phone: Comment on above: Pattern: Regular 07-09-2014 09:03-0400 Pulse Oximetry 98 % Heather Shyam [facility] Work Phone: Comment on above: Room air 07-09-2014 09:03-0400 Respiratory Rate 16 /min Janny North LPN Com[facility] Work Phone: 07-09-2014 09:03-0400 SaO2% (BldA) [Mass fraction] 98 % Janny North RETA [facility]; [facility] Work Phone: Comment on above: Room air 07-09-2014 09:03-0400 Weight 82.56 kg Heather Howe [facility] Work Phone: 07-06-2014 08:55-0400 BMI (Body Mass Index) 26.68 kg/m2 Laure Faith [facility] Work Phone: 07-06-2014 08:55-0400 Body Temperature 97.6 [degF] Laure Faith [facility] Work Phone: 07-06-2014 08:55-0400 Body weight 82.56 kg Laure Faith [facility] Work Phone: 07-06-2014 08:55-0400 BP Diastolic 76 mm[Hg] Laure Faith [facility] Work Phone: Comment on above: Patient Position: Sitting; Cuff Location : Left Arm; Cuff Size: Large 07-06-2014 08:55-0400 BP Systolic 114 mm[Hg] Laure Faith [facility] Work Phone: Comment on above: Patient Position: Sitting; Cuff Location : Left Arm; Cuff Size: Large 07-06-2014 08:55-0400 BSA (Body Surface Area) 1.99 m2 Laure Faith [facility] Work Phone: 07-06-2014 08:55-0400 Height 175.9 cm Laure Faith [facility] Work Phone: 07-06-2014 08:55-0400 Pulse (Heart Rate) 74 /min Laure Faith [facility] Internal Medicine Work Phone: Comment on above: Pattern: Regular 07-06-2014 08:55-0400 Respiratory Rate 16 /min Laure Allenlucas [facility] Work Phone: Comment on above: Pattern: Unlabored 07-06-2014 08:55-0400 Weight 82.56 kg Heather Howe [facility] Work Phone: 06-24-2013 10:30-0400 BMI (Body Mass Index) 28.44 kg/m2 Laure Allenlucas [facility] Work Phone: 06-24-2013 10:30-0400 Body Temperature 97.5 [degF] Laure Faith [facility] Work Phone: 06-24-2013 10:30-0400 Body weight 88 kg Laure Faith [facility] Work Phone: 06-24-2013 10:30-0400 BP Diastolic 82 mm[Hg] Laure Faith [facility] Work Phone: Comment on above: Patient Position: Sitting; Cuff Location : Left Arm; Cuff Size: Large 06-24-2013 10:30-0400 BP Systolic 110 mm[Hg] Laure Faith [facility] Work Phone: Comment on above: Patient Position: Sitting; Cuff Location : Left Arm; Cuff Size: Large 06-24-2013 10:30-0400 BSA (Body Surface Area) 2.04 m2 Laure Faith [facility] Work Phone: 06-24-2013 10:30-0400 Height 175.9 cm Laure Faith [facility] Work Phone: 06-24-2013 10:30-0400 Pulse (Heart Rate) 76 /min Laure Faith [facility] Work Phone: Comment on above: Pattern: Regular 06-24-2013 10:30-0400 Respiratory Rate 16 /min Laure Faith [facility] Work Phone: Comment on above: Pattern: Unlabored 06-24-2013 10:30-0400 Weight 88 kg Heather Howe [facility] Work Phone: 12-22-2011 07:50-0500 BMI (Body Mass Index) 27.71 kg/m2 Janny North LPN [facility] Work Phone: 12-22-2011 07:50-0500 Body Temperature 98 [degF] Janny North LPN [facility] Work Phone: Comment on above: Method: Oral 12-22-2011 07:50-0500 Body weight 85.73 kg Janny North LPN [facility] Work Phone: 12-22-2011 07:50-0500 BP Diastolic 72 mm[Hg] Janny Can MCDUFFIE [facility] Work Phone: Comment on above: Patient Position: Sitting; Cuff Location : Left Arm; Cuff Size: Standard 12-22-2011 07:50-0500 BP Systolic 122 mm[Hg] Janny Can MCDUFFIE [facility] Work Phone: Comment on above: Patient Position: Sitting; Cuff Location : Left Arm; Cuff Size: Standard 12-22-2011 07:50-0500 BSA (Body Surface Area) 2.02 m2 Janny Can MCDUFFIE [facility] Work Phone: 12-22-2011 07:50-0500 Height 175.9 cm Janny Can MCDUFFIE [facility] Work Phone: 12-22-2011 07:50-0500 Pulse (Heart Rate) 72 /min Janny Can MCDUFFIE [facility] Medicine Work Phone: Comment on above: Pattern: Regular 12-22-2011 07:50-0500 Respiratory Rate 17 /min Janny Can MCDUFFIE [facility] Work Phone: 12-22-2011 07:50-0500 Weight 85.73 kg Heather Howe [facility] Work Phone: 12-01-2011 07:46-0500 BMI (Body Mass Index) 27.71 kg/m2 Aida Holland RN [facility] Work Phone: 12-01-2011 07:46-0500 Body Temperature 98.6 [degF] Aida Hloland RN [facility] Work Phone: Comment [...] 12-01-2011 07:46-0500 Weight 85.73 kg Heather Howe [facility] Work Phone: 03-07-2011 11:47-0400 BMI (Body Mass Index) 27.71 kg/m2 Laure Faith [facility] Work Phone: 03-07-2011 11:47-0400 Body Temperature 97.4 [degF] Laure Faith [facility] Work Phone: 03-07-2011 11:47-0400 Body weight 85.73 kg Laure Faith [facility] Work Phone: 03-07-2011 11:47-0400 BP Diastolic 76 mm[Hg] Laure Faith [facility] Work Phone: Comment on above: Patient Position: Sitting; Cuff Location : Left Arm; Cuff Size: Standard 03-07-2011 11:47-0400 BP Systolic 116 mm[Hg] Laure Faith [facility] Work Phone: Comment on above: Patient Position: Sitting; Cuff Location : Left Arm; Cuff Size: Standard 03-07-2011 11:47-0400 BSA (Body Surface Area) 2.02 m2 Laure Faith [facility] Work Phone: 03-07-2011 11:47-0400 Height 175.9 cm Laure Faith [facility] Work Phone: 03-07-2011 11:47-0400 Pulse (Heart Rate) 64 /min Laure Faith [facility] Internal Medicine Work Phone: Comment on above: Pattern: Regular 03-07-2011 11:47-0400 Respiratory Rate 16 /min Laure Faith [facility] Work Phone: Comment on above: Pattern: Unlabored 03-07-2011 11:47-0400 Weight 85.73 kg Heather Howe [facility] Work Phone: 02-14-2011 15:23-0400 BMI (Body Mass Index) 27.27 kg/m2 Laure Allenlucas [facility] Work Phone: 02-14-2011 15:23-0400 Body Temperature 98.1 [degF] Laure Faith [facility] Work Phone: 02-14-2011 15:23-0400 Body weight 84.37 kg Laure Faith [facility] Work Phone: 02-14-2011 15:23-0400 BP Diastolic 70 mm[Hg] Laure Allenlucas [facility] Work Phone: Comment on above: Patient Position: Sitting; Cuff Location : Left Arm; Cuff Size: Large 02-14-2011 15:23-0400 BP Systolic 104 mm[Hg] Laure Allenlucas [facility] Work Phone: Comment on above: Patient Position: Sitting; Cuff Location : Left Arm; Cuff Size: Large 02-14-2011 15:23-0400 BSA (Body Surface Area) 2.01 m2 Laure Allenlucas [facility] Work Phone: 02-14-2011 15:23-0400 Height 175.9 cm Laure Marcell [facility] Work Phone: 02-14-2011 15:23-0400 Pulse (Heart Rate) 60 /min Laure Marcell [facility] Work Phone: Comment on above: Pattern: Regular 02-14-2011 15:23-0400 Respiratory Rate 16 /min Laure Marcell [facility] Work Phone: Comment on above: Pattern: Unlabored 02-14-2011 15:23-0400 Weight 84.37 kg Heather Howe [facility] Work Phone: Encounters Encounter Date Encounter Type Care Provider Facility Start: 07-20-2025 ambulatory Carlos Stone y:[facility] Start: 05-04-2025 End: 05-04-2025 Admission to same day surgery center Dr. Carlos Santo MD -[facility] Start: 05-04-2025 End: 05-04-[address] Heather Howe DO Work Phone: -[facility] Start: 01-05-2025 End: 01-05-[address] Heather Howe DO Work Phone: [facility] Work Phone: Start: 01-05-2025 End: 01-05-2025 Patient encounter procedure Laura Dineroing -Laboratory Work Phone: Start: 01-05-2025 End: 01-05-2025 ambulatory Heather Howe Facility:[facility] Start: 12-29-2024 End: 12-29-2024 Admission to same day surgery center Dr. Carlos Santo MD -Surgical Day Care Start: 12-29-2024 End: 12-29-[address] Heather Howe DO Work Phone: [facility] Work Phone: Start: 09-23-2024 End: 09-23-2024 Bamboo flowsheet Mariah Esteban PALLIATIVE NURSE Work Phone: [facility] Start: 09-23-2024 End: 09-23-2024 Bamboo flowsheet Mariah Gonzalesandt PALLIATIVE NURSE Work Phone: [facility] Start: 09-23-2024 End: 09-23-2024 Office outpatient visit 25 minutes Mariah Larkint PALLIATIVE NURSE Work Phone: [facility] Comment on above: Neuropathy (Primary Dx); RLS (restless legs syndrome) Start: 09-23-2024 End: 09-23-2024 ambulatory MARIAH GONZALESANDT Not Available Start: 06-24-2024 End: 06-25-2024 Refill Kwaku Singleton MD Work Phone: [facility] Comment on above: RLS (restless legs s yndrome) (Primary Dx) Start: 06-24-2024 End: 06-25-2024 Refill Mariah S Carolinandt PALLIATIVE NURSE Work Phone: [facility] Comment on above: RLS (restless legs s yndrome) Start: 12-18-2023 End: 12-18-2023 ambulatory [facility] Work Phone: Start: 12-18-2023 End: 12-18-2023 Patient encounter procedure [facility] Work Phone: Start: 11-06-2023 End: 11-06-2023 ambulatory KWAKU SINGLETON Not Available Start: 10-24-2023 End: 10-24-2023 ambulatory KWAKU SINGLETON Not Available Start: 09-26-2023 End: 09-26-2023 ambulatory [facility] Work Phone: Start: 09-26-2023 End: 09-26-2023 Patient encounter procedure [facility], [place] Work Phone: Start: 01-29-2023 End: 01-29-2023 Office outpatient visit 25 minutes Heather Howe DO Work Phone: [facility] Start: 12-19-2022 ambulatory Heather Howe DO [facility] rehensive Internal Med Start: 11-02-2022 End: 11-02-2022 ambulatory [facility] Work Phone: Start: 11-02-2022 End: 11-02-2022 Patient encounter procedure [facility], [place] Start: 03-28-2022 End: 03-28-2022 Patient encounter procedure [facility]Radiology, [facility] Start: 01-23-2022 End: 01-23-2022 Office outpatient visit 25 minutes Heather Shyam DO Work Phone: [facility] Start: 04-07-2021 End: 04-07-2021 Annotation/Addendum Heather Shyam DO Work Phone: [facility] Start: 04-06-2021 End: 04-06-2021 Office outpatient visit 40 minutes Heather Shyam DO Work Phone: [facility] Start: 04-06-2021 Review Heather Locketto n DO Work Phone: [facility] Start: 01-31-2021 End: 01-31-2021 Office outpatient visit 10 minutes Heather Shyam DO Work Phone: [facility] Start: 11-25-2020 End: 11-25-2020 Office outpatient visit 15 minutes Heather Howe [facility] Start: 11-22-2020 End: 11-22-2020 Office outpatient visit 10 minutes Heather Howe [facility] Start: 11-17-2020 End: 11-18-2020 Office outpatient visit 25 minutes Heather Howe [facility] Start: 08-25-2020 End: 08-25-2020 Annotation/Addendum Heather Howe [facility] Start: 08-25-2020 End: 08-25-2020 Office outpatient visit 15 minutes Heather Howe [facility] Start: 11-17-2019 End: 11-17-2019 Phone Encounter Heather Howe [facility] Start: 11-12-2019 End: 11-12-2019 Office outpatient visit 25 minutes Heather Howe [facility] Start: 10-01-2018 End: 10-02-2018 Office outpatient visit 25 minutes Heather Howe [facility] Start: 10-01-2018 Review Heather Howe [facility] Start: 08-01-2017 End: 08-01-2017 Office outpatient visit 25 minutes Heather Theodore [facility] Start: 07-16-2017 End: 07-16-2017 Phone Encounter Heather Theodore [facility] Start: 03-27-2016 End: 03-27-2016 Office outpatient visit 25 minutes Heather Theodore [facility] Start: 02-07-2016 End: 02-07-2016 Office outpatient visit 15 minutes Heather Theodore [facility] Start: 01-12-2016 End: 01-12-2016 Phone Encounter Heather Theodore [facility] Start: 11-19-2015 End: 11-19-2015 Phone Encounter Heather Theodore [facility] Start: 11-17-2015 End: 11-18-2015 Office outpatient visit 15 minutes Heather Theodore [facility] Start: 03-12-2015 End: 03-12-2015 Office outpatient visit 25 minutes Heather Theodore [facility] Start: 11-11-2014 End: 11-12-2014 Office outpatient visit 15 minutes Heather Theodore [facility] Start: 08-24-2014 End: 08-24-2014 Office outpatient visit 15 minutes Heather Howe [facility] Internal Medicine Start: 07-09-2014 End: 07-09-2014 Office outpatient visit 5 minutes Heather Theodore [facility] Start: 07-06-2014 End: 07-06-2014 Office outpatient visit 25 minutes Heather Howe [facility] Internal Medicine Start: 06-08-2014 End: 06-08-2014 Office outpatient visit 5 minutes Heather Hwoe [facility] Internal Medicine Start: 06-24-2013 End: 06-24-2013 Patient encounter Heather Theodore [facility] Start: 12-22-2011 End: 12-22-2011 Office outpatient visit 15 minutes Heather Theodore [facility] Start: 12-01-2011 End: 12-01-2011 Patient encounter Heather Theodore [facility] Start: 03-07-2011 End: 03-07-2011 Patient encounter Heather Theodore [facility] Start: 02-14-2011 End: 02-14-2011 Patient encounter Heather Theodore [facility] Procedures Date Procedure Procedure Detail Performing Clinician Start: 05-04-2025 Arline procedsandi e of nerve Dr. Heather Howe DO Work Phone: Start: 05-04-2025 Fluoroscopic guidance Arleen Howe DO Work Phone: Start: 01-05-2025 Prostate specific antigen measurement Dr. Heather Howe DO Work Phone: Comment on above: This test was perfor med using the [employer] tPSA method. Measured values of a patient sample can vary depending on the testing procedure used. PSA values determined on patient samples by different testing procedures cannot be used interchangeably. If there is a change in PSA assays while monitoring therapy, sequential testing should be performed to confirm baseline values. Start: 12-29-2024 Fluoroscopic guidance Arleen Howe DO Work Phone: Start: 12-29-2024 X-ray of lumbosacral spine Dr. Heather Howe DO Work Phone: Start: 12-29-2024 Destructive procedur e of nerve Dr. Heather Howe DO Work Phone: Start: 03-28-2022 End: 03-28-2022 Esophagus Dual Contrast Procedure Note: See Note; NOTES: [facility] Imaging Services [address] [place] [address] Esophagus Dual Contrast MR#: [id number] Acct: [id number] Name: ITA EMERY Rep #: [id number] : 1960 M 61 From: Vaibhav shafer MD PCP: Dr. Heather Howe, DO Status: REG CLI Study: Esophagus Dual Contrast Date of Exam: 03/28/22 Exam# [id number] Ordering Dr: Crescencio Tyler MD STUDY: X-RAY [...] Heather Howe DO; Dr. Crescencio Tyler MD Agricultural Research Director: Signed Shira Bragg MD Work Phone: Start: 03-28-2022 Radiography of esophagus Start: 05-18-2021 End: 05-19-2021 12 Lead EKG Comments: See Note; NOTES: [facility] Cardiovascular Services [address] [place] [address] 12 Lead EKG 05/18/21 0907 MR#: [id number] Acct: [id number] Name: ITA EMERY Rep #: [id number] : 1960 60 From: Blu Casiano MD Attending Dr: Mohan Pagan PA-C Status: REG CL I Ordering Dr: Mohan Pagan PA-C Date: 05/18/21 Location: [facility] Sex: M C Admitted: Test Reason : REOP Blood Pressure : / mmHG Vent. Rate : 057 BPM Atrial Rate : 057 BPM P-R Int : 164 ms QRS Dur : 102 ms QT Int : 396 ms P-R-T Axes : 065 087 048 degrees QTc Int : 385 ms Sinus bradycardia Otherwise normal ECG Confirmed by [place] FONSECA, BLU ([id number]), assignment desk editor JUDY WOOTEN ([id number]) on 05/19/2021 1:35:25 PM Referred By: Mohan Pgaan Confirmed By:BLU CASIANO MD 05/19/21 1335 Date Blu Casiano MD CC: GIANNA Pagan; Dr. Heather Howe DO Signed Heather Howe DO Work Phone: Start: 04-13-2021 End: 04-13-2021 Pulmonary Function Test Comments: See Note; NOTES: [facility] Pulmonary Services/Neurology [address] [place] [address] MR#: [id number] Acct: [id number] Name: ITA EMERY Rep #: [id number] : 1960 60 From: Abdulaziz Huizar DO Referring Dr: Heather Howe DO Status: REG CL I Location: [facility] Date: 04/12/21 Sex: M C INTRODUCTION: [...] DO Date Dictated: 04/13/21934 Date Transcribed: 04/13/21934 Agricultural Research Director: HYUN Signed Heather Howe DO Work Phone: Start: 04-06-2021 End: 04-06-2021 Chest PA and Lateral Comments: See Note; NOTES: [facility] Radiology [address] [place] [address] Chest PA and Lateral MR#: [id number] Acct: [id number] Name: ITA EMERY Rep #: [id number] : 1960 M 60 From: Kathy Adrian MD PCP: Dr. Heather Howe DO Status: DEP AMB Study: Chest PA and Lateral Date of Exam: 04/06/21 Exam# [id number] Ordering Dr: Heather Howe DO STUDY: X-RAY [...] support , CC: Dr. Heather Howe DO Agricultural Research Director: Signed Heather Howe DO Work Phone: Start: 02-14-2021 End: 02-14-2021 Inj/Asp Augustin Jt Should/Hip/Knee Comments: See Note; NOTES: [facility] Imaging Services [address] [place] [address] Inj/Asp Augustin Jt Should/Hip/Knee MR#: [id number] Acct: [id number] Name: CARLOS EMERY Rep #: [id number] : 1960 M 60 From: Vaibhav shafer MD PCP: Dr. Heather Howe DO Status: REG CLI Study: Inj/Asp Augustin Jt Should/Hip/Knee Date of Exam: 0 02/14/21 Exam# [id number] Ordering Dr: Eze Mckeon MD PROCEDURE: Fluoroscopic [...] Heather Howe DO; Dr. Eze Mckeon MD Agricultural Research Director: Signed Eze Mckeon Work Phone: Start: 12-04-2017 End: 12-04-2017 Inj/Asp Augustin Jt Should/Hip/Knee Comments: See Note; NOTES: [facility] Imaging Services [address] [place] [address] Inj/Asp Augustin Jt Should/Hip/Knee MR#: [id number] Acct: [id number] Name: CARLOS EMERY Rep #: [id number] : 1960 M 57 From: Vaibhav Archer MD PCP: Heather Howe DO Status: REG CLI Study: Inj/Asp Augustin Jt Should/Hip/Knee Date of Exam: 12/04/17 Exam# [id number] Ordering Dr: Eze Mckeon MD PROCEDURE: Fluoroscopic [...] Vaibhav Archer MD at 10:38 EST Tel [phone], Service support , CC: Heather Howe DO; Eze Mckeon MD Agricultural Research Director: Signed Eze Mckeon Work Phone: Start: 03-15-2016 End: 03-15-2016 PT D/C Summary (1) Comments: See Note; NOTES: [facility] Physical Therapy [facility] [address] [place] [address] Fax REHABILITATION SERVICES DISCHARGE SUMMARY MR#: [id number] Acct: [id number] Name: CARLOS EMERY Rep #: [id number] : 1960 55 From: Jamshid Veras PT, ATC Referring DrDianne: Bonnie Torres DO Status: REG RCR Insurance: [employer] - PT D/C Summary It has [...] please feel free to call me at [phone]. Thank you for the referral of this patient. Sincerely, Jamshid Veras <Electronically signed by Jamshid Veras PT, ATC> 03/15/16 1510 CC: Bonnie Torres DO [facility] Signed Heather Howe Start: 02-07-2016 End: 02-07-2016 Forearm 2 Views Comments: See Note; NOTES: [facility] Imaging Services [address] [place] [address] Verdana 4d Forearm 2 Views MR#: [id number] Acct: [id number] Name: CARLOS EMERY Rep #: [id number] : 1960 M 55 From: Jamshid Liriano MD PCP: Bonnie Torres DO Status: REG CLI Study: Forearm 2 Views Date of Exam: 02/07/16 Exam# [id number] Ordering Dr: Bonnie Torres DO STUDY: X-RAY [...] MD at 16:49 EDT , Service support [phone], RAD/Forearm 2 Views IMPRESSION: Normal x-ray examination of the radius and ulna. Electronically Signed: Jamshid Liriano MD at 16:49 EDT , Service support [phone], CC: Bonnie Torres DO Agricultural Research Director: Jef Torres Work Phone: Start: 02-07-2016 End: 02-07-2016 Wrist min 3 Views Comments: See Note; NOTES: [facility] Imaging Services [address] [place] [address] Verdana 4d Wrist min 3 Views MR#: [id number] Acct: [id number] Name: CARLOS EMERY Rep #: [id number] : 1960 M 55 From: Jamshid Liriano MD PCP: Bonnie Torres DO Status: REG CLI Study: Wrist min 3 Views Date of Exam: 02/07/16 Exam# [id number] Ordering Dr: Bonnie Torres DO STUDY: X-RAY [...] MD at 16:53 EDT , Service support [phone], RAD/Wrist min 3 Views IMPRESSION: Normal x-ray examination of the wrist. Electronically Signed: Jamshid Liriano MD at 16:53 EDT , Service support [phone], CC: Bonnie Torres DO Agricultural Research Director: Signed Bonnie Torres Work Phone: Start: 02-04-2016 End: 02-04-2016 Upper Ext Joint Only(Routine) Comments: See Note; NOTES: [facility] Imaging Services [address] [place] [address] Verdana 4d Upper Ext Joint Only(Routine) MR#: [id number] Acct: [id number] Name: CARLOS EMERY Rep #: [id number] : 1960 M 55 From: Osman Stover MD PCP: Bonnie Torres DO Status: REG CLI Study: Upper Ext Joint Only(Routine) Date of Exam: 02/04/16 Exam# [id number] Ordering Dr: Bonnie Torres DO STUDY: MRI [...] FACR at 10:15 EDT , Service support [phone], CC: Bonnie Torres DO Agricultural Research Director: Signed Bonnie Torres Work Phone: Start: 11-24-2015 End: 11-25-2015 Chest PA and Lateral Comments: See Note; NOTES: [facility] Imaging Services [address] [place] [address] Shaguftadana 4d Chest PA and Lateral MR#: [id number] Acct: [id number] Name: CARLOS EMERY Rep #: [id number] : 1960 M 55 From: Osman Stover MD PCP: Bonnie Torres DO Status: REG CLI Study: Chest PA and Lateral Date of Exam: 11/24/15 Exam# [id number] Ordering Dr: Bonnie Torres DO STUDY: X-RAY [...] FACR at 11:39 EST , Service support [phone], RAD/Chest PA and Lateral IMPRESSION: No signs of acute cardiopulmonary disease. Minimal right pleural apical thickening. Electronically Signed: Osman Stover MD, FACR at 11:39 EST , Service support [phone], CC: Bonnie Torres DO Agricultural Research Director: Signed Bonnie Torres Work Phone: Start: 11-17-2015 End: 11-18-2015 A/C Jts Wilfrid w or w/o Wts Comments: See Note; NOTES: [facility] Imaging Services [address] [address] Verdana 4d A/C Jts Wilfrid w or w/o Wts MR#: [id number] Acct: [id number] Name: CARLOS EMERY Rep #: [id number] : 1960 M 55 From: Omar Glez MD PCP: Bonnie Torres DO Status: REG CLI Study: A/C Jts Wilfrid w or w/o Wts Date of Exam: 11/17/15 Exam# [id number] Ordering Dr: Bonnie Torres DO Study: Bilateral [...] MD at 23:53 EST , Service support [phone], RAD/A/C Jts Wilfrid w or w/o Wts IMPRESSION: Minimal degenerative changes of the left and right acromioclavicular joints. Right apical pleural thickening. Electronically Signed: Omar Glez MD at 23:53 EST , Service support [phone], CC: Bonnie Torres DO Agricultural Research Director: Signed Bonnie Torres Work Phone: Start: 09-29-2014 End: 10-01-2014 Sleep Study Report Comments: See Note; NOTES: [facility] SLEEP DISORDER CENTER [address] [place] [address] Polysomnography with NCPAP MR#: [id number] Acct: [id number] Name: CARLOS EMERY Rep #: [id number] : 1960 53 From: Kwaku Singleton MD PCP: Bonnie Torres DO Status: REG CLI Ordering Dr.: Bonnie Torres DO Date: 09/16/14 Sex: M C REFERRING PHYSICIAN: Dr. Torres. SLEEP HISTORY: This is a CPAP titration study performed on this 53-year-old male with a body mass index of 26.1 and an Monroe Sleepiness Scale score of 14. There is [...] version). Please note that a reference to [facility] AHI in this report is consistent with the current Hypopnea definition according to Medicare Criteria and an AASM AHI reference is consistent with the current Hypopnea definition according to the AASM criteria. PROCEDURE: The study was attended continuously by a endoscope technician. Monitored parameters included left and right [...] Co-signature (if applicable) Date Signed Bonnie Cotter [employer] Work Phone: Start: 08-08-2014 End: 08-08-2014 Sleep Study Report Comments: See Note; NOTES: [facility] SLEEP DISORDER CENTER [address] [place] [address] Polysomnography MR#: [id number] Acct: [id number] Name: CARLOS EMERY Rep #: [id number] : 1960 53 From: Kwaku Singleton MD [...] version). Please note that a reference to [facility] AHI in this report is consistent with the current Hypopnea definition according to Medicare Criteria and an AASM AHI reference is consistent with the current Hypopnea definition according to the AASM criteria. PROCEDURE: The study was attended continuously by a endoscope technician. Monitored parameters included left and right [...] min 3 Views Comments: See Note; NOTES: [facility] Imaging Services [address] [place] [address] Radiology Report MR#: [id number] Acct: [id number] Name: ALBINACARLOS W Rep #: [id number] : 1960 M 53 From: Vaibhav Archer MD PCP: Bonnie Torres DO Status: REG CLI Study: Foot min 3 Views Date of Exam: 07/06/14 Exam# [id number] Ordering Dr: Bonnie Torres DO STUDY: X-RAY [...] Vaibhav Archer MD at 16:11 EDT Tel [phone], Service support [phone], CC: Bonnie Torres DO Agricultural Research Director: Signed Bonnie Torres Work Phone: Start: 07-06-2014 End: 07-07-2014 L/S Spine Min 4 Views Comments: See Note; NOTES: [facility] Imaging Services [address] [place] [address] Radiology Report MR#: [id number] Acct: [id number] Name: CARLOS EMERY Rep #: [id number] : 1960 53 From: Ghazal Espinal MD PCP: Bonnie Torres DO Status: REG CLI Study: L/S Spine Min 4 Views Date of Exam: 07/06/14 Exam# [id number] Ordering Dr: Bonnie Torres DO STUDY: X-RAY [...] at 6:01 EDT Tel , Service support [phone], CC: Bonnie Torres DO Agricultural Research Director: Signed Bonnie Torres Work Phone: Start: 07-06-2014 End: 07-06-2014 Thoracic Spine 3 Views Comments: See Note; NOTES: [facility] Imaging Services [address] [place] [address] Radiology Report MR#: [id number] Acct: [id number] Name: CARLOS EMERY Rep #: [id number] : 1960 53 From: Ghazal Espinal MD PCP: Bonnie Torres DO Status: REG CLI Study: Thoracic Spine 3 Views Date of Exam: 07/06/14 Exam# [id number] Ordering Dr: Bonnie Torres DO STUDY: X-RAY [...] at 22:26 EDT Tel , Service support [phone], CC: Bonnie Torres DO Agricultural Research Director: Signed Bonnie Bear Phone: Start: 05-05-2014 End: 05-05-2014 Operative Report Comments: See Note; NOTES: [facility] Medical Records Department [address] [place] [address] Operative Report MR#: [id number] Acct: [id number] Name: CARLOS EMERY Rep #: [id number] : 1960 53 From: Crescencio Tyler MD [...] Savage Carlos C: Bonnie Torres DO T: [facility] JOB: [id number] 05/05/14 0827 <Electronically signed by Crescencio Tyler MD> Date Crescencio Tyler MD CC: Bonnie Torres DO; Crescencio Tyler Date Dictated: 05/04/142150 Date Transcribed: 05/04/142150 Agricultural Research Director: Signed Dr. Crescencio Tyler Work Phone: Start: 05-04-2014 End: 05-05-2014 Emergency Department Summary Comments: See Note; NOTES: [facility] Medical Records Department [address] [place] [address] Emergency Department Summary MR#: [id number] Acct: [id number] Name: CARLOS EMERY Rep #: [id number] : 1960 53 From: Carlos Sagastume MD [...] IMPRESSION: Esophageal obstruction secondary to meat bolus. Carlos Sagastume MD C C: Bonnie Tyler MD T: [facility] JOB: [id number] 05/04/142226 <Electronically signed by Carlos Sagastume MD> Date Carlos Sagastume MD CC: Bonnie Torres DO; Blu Casiano MD Date Dictated: 05/04/142038 Date Transcribed: 05/04/142038 Agricultural Research Director: Signed Heather Howe Start: 05-05-2011 Colonoscopy Kwaku novoa MD Work Phone: Left shoulder re attachment with orthopedics -- dr paco Nur BEAM MACHINE OPERATOR Left shoulder re attachment with orthopedics -- dr paco Mason CMA no signifcant surgeries Nadia Wickalanna no signifcant surgeries Licha Gravius no signifcant surgeries Charlie Dhillon no signifcant surgeries Bethanie Watson no signifcant surgeries Licha Gravius BEAM MACHINE OPERATOR no signifcant surgeries Charlie Dhillon LPN no signifcant surgeries Licha Gravedgardo DAMICO no signifcant surgeries Jayant Mason CMA Plan of Treatment Date Care Activity Detail Author Start: 09-22-2025 End: 09-22-2025 Patient encounter procedure 09/22/2025 9:00 AM EST Office Visit [facility] [address] [place] [phone] Mariah Esteban NP [address] [place] [address] [facility] Start: 05-04-2025 X-ray of lumbar spin e, two or three views Lumbar Spine 2 or 3 Views [facility] Start: 05-04-2025 XR Lumbar spine 2 or 3 Views [facility] Start: 05-04-[facility]25 [facility] Start: 12-29-2024 Anes dx/ther nerve block/injection prone pos ANESTH N BLOCK/INJ PRONE [facility] Start: 12-29-2024 Dstr nrolytc agnt parverteb fct addl lmbr/sacral DESTROY L/S FACET JNT ADDL [facility] Start: 12-29-2024 Dstr nrolytc agnt parverteb fct sngl lmbr/sacral DESTROY LUMB/SAC FACET JNT [facility] Start: 12-29-2024 X-ray of lumbosacral spine L/S Spine Min 4 Views [facility] Start: 12-29-2024 XR Spine Lumbar and Sacrum GE 4 Views [facility] Start: 12-29-2024 [facility] Start: 09-23-2024 End: 09-23-2024 Patient encounter procedure [facility] Comment on above: Arrived Start: 06-15-2024 Influenza vaccination Influenza Vacc ine (#1) [facility] Start: 09-26-2023 Heavy metals measurement [facility] Start: 09-26-2023 Serum immunofixation [facility] Start: 09-26-2023 Urine protein electrophoresis [facility] Start: 01-29-2023 Procedure Education Eprescribe d prescriptions (G8553) [facility]; [facility] Work Phone: Start: 01-29-2023 Provider Instruction s for Treatment Reviewed Vest Busheler Letter [facility]; [facility] Work Phone: Start: 01-29-2023 Hemoglobin glycosyla satnam a1c HGB A1C (80448) [facility]; [facility] Work Phone: Start: 01-29-2023 25 hydroxy includes fractions if performed CALCIFIDIOL (56060) VIT D 25 [facility]; [facility] Work Phone: Start: 01-29-2023 Assay of thyroid stimulating hormone tsh TSH (76264) [facility]; [facility] Work Phone: Start: 01-29-2023 Urnls dip stick/tabl et reagent auto microscopy URINALYSIS, W/ MICRO (74223) [facility]; [facility] Work Phone: Start: 01-29-2023 Urine albumin quantitative MICROALBUMIN: CREATININE RATIO (03537) AND (26319) [facility]; [facility] Work Phone: Start: 01-29-2023 Comprehensive metabo lic panel METABOLIC PANEL, COMPREHENSIVE (04085) [facility]; [facility] Work Phone: Start: 01-29-2023 Lipid panel LIPID PANEL (62926) [facility] prehensive Internal Medicine; [facility] Work Phone: Start: 01-29-2023 Blood count complete auto&auto difrntl wbc CBC W/AUTO DIFF WBC (27531) [facility]; [facility] Work [...] 25 hydroxy includes fractions if performed CALCIFIDIOL (50945) VIT D 25 [facility]; [facility] Work Phone: Start: 01-23-2022 Lipid panel LIPID PANEL (87760) [facility] prehensive Internal Medicine; [facility] Work Phone: Start: 05-05-2021 Screening for malign ant neoplasm of colon [facility] Start: 04-06-2021 Procedure Education Eprescribe d prescriptions (G8553) [facility] Work Phone: Start: 04-06-2021 Provider Instruction s for Treatment [facility]; [facility] Work Phone: Start: 04-06-2021 Assay of prostate specific antigen total PSA (PROSTATE SPECIFIC ANTIGEN) (V76.44) [facility]; [facility] Work Phone: Start: 04-06-2021 Assay of thyroid stimulating hormone tsh TSH (12806) [facility]; [facility] Work Phone: Start: 04-06-2021 Lipid panel LIPID PANEL (09536) [facility]; [facility] Work Phone: Start: 04-06-2021 Blood count complete auto&auto difrntl wbc CBC W/AUTO DIFF WBC (09088) [facility]; [facility] Work Phone: Start: 04-06-2021 25 hydroxy includes fractions if performed CALCIFIDIOL (30061) VIT D 25 [facility]; [facility] Work Phone: Start: 04-06-2021 Assay of magnesium MAGNESIUM (41781) [facility]; [facility] Work Phone: Start: 04-06-2021 Comprehensive metabo lic panel METABOLIC PANEL, COMPREHENSIVE (79545) [facility]; [facility] Work Phone: Start: 04-06-2021 Urinalysis qual/semiquant except immunoassays URINALYSIS (05864) [facility]; [facility] Work Phone: Start: 01-31-2021 Procedure Education Eprescribe d prescriptions (G8553) [facility]; [facility] Work Phone: Start: 11-25-2020 Procedure Education Eprescribe d prescriptions (G8553) [facility]; [facility] Work Phone: Start: 11-25-2020 Provider Instruction s for Treatment [facility]; [facility] Work Phone: Start: 11-25-2020 Lipid panel LIPID PANEL (87170) [facility]; [facility] Work Phone: Start: 11-25-2020 HbA1c (Bld) [Mass fraction] HGB A1C (15735) [facility]; [facility] Work Phone: Start: 11-25-2020 Hemoglobin glycosyla satnam a1c HGB A1C (09029) [facility]; [facility] Work [...] Protein mass conc LIPOPROTEIN, BLD, BY NMR (03250) [facility] Work Phone: Start: 10-01-2018 25 hydroxy includes fractions if performed CALCIFIDIOL (92748) VIT D 25 [facility] Work Phone: Start: 10-01-2018 Cobalamin (Vitamin B 12) mass conc VITAMIN B-12 (CYANOCOBALAMIN) (42017) [facility] Work Phone: Start: 10-01-2018 Thyrotropin Qn TSH (00448) [facility] Work Phone: Start: 10-01-2018 Sedimentation rate r bc non-automated SED RATE ERYTHROCYTE (02411) [facility] Work Phone: Start: 10-01-2018 Comprehensive metabo lic panel METABOLIC PANEL, COMPREHENSIVE (64720) [facility] Work Phone: Start: 10-01-2018 CRP mass conc C-REACTIVE PRO TEIN (67238) [facility] Work Phone: Start: 10-01-2018 Blood count complete automated CBC (AUTO) (92972) [facility] Work Phone: Start: 10-01-2018 Nuclear Ab IF titer (S) ESTEPHANIE (A NTINUCLEAR ANTIBODY) (45819) [facility] Work Phone: Start: 08-01-2017 [...] Comprehensive metabo lic panel METABOLIC PANEL, COMPREHENSIVE (80293) [facility] Work Phone: Start: 11-11-2014 Hemoglobin A1c/Hemoglobin.total mass fraction (Bld) Hemoglobin Glyclated (HGB A1C) (37742) [facility] Work Phone: Start: 11-11-2014 Hemoglobin glycosyla satnam a1c Hemoglobin Glyclated (HGB A1C) (50171) [facility]; [facility] Work Phone: Start: 11-11-2014 Lipid panel LIPID PANEL (52224) Com [facility] Work Phone: Start: [...] Screening for malign ant neoplasm of colon [facility] Albumin [Moles/volum e] in Serum or Plasma [facility] Albumin/Globulin ratio [facility] Arsenic measurement [facility] Electrophoresis: [id number] [facility] Electrophoresis: jolene ma globulin [facility] Fluid sample globuli n level [facility] Globulin measurement [facility] IgA [Mass/volume] in Serum or Plasma [facility] IgG [Mass/volume] in Serum or Plasma [facility] IgM [Mass/volume] in Serum or Plasma [facility] Lead measurement [facility] Measurement of monoclonal protein concentration [facility] Mercury measurement, blood [facility] Patient referral [facility] Work Phone: Protein [Mass/volume ] in Urine [facility] Protein electrophore sis panel - Serum or Plasma [facility] Protein measurement, urine [facility] Urine albumin measurement [facility] Work Phone: [...] nternal Medicine; [facility] Work Phone: [facility] Immunizations Immunization Date Immunization Notes Care Provider [facility] 10-03-2022 influenza virus vaccine, unspecified formulation Kwaku Singleton MD Work Phone: [facility] 01-14-2021 COVID-19 (Moderna) Heather Shyam DO Work Phone: [facility]; [facility] Work Phone: 01-13-2021 COVID-Moderna (100 MCG/0.5 ML) Heather Shyam DO Work Phone: [facility]; [facility] Work Phone: 01-01-2021 COVID-Moderna (100 MCG/0.5 ML) Heather Howe DO Work Phone: [facility]; [facility] Work Phone: Payers Date Payer Category Payer Department [facility] ( and others) [id number] 2024 Self-pay [id number] 2019 Department [facility] ( and others) FOR LIFE [id number] 2019-Present [address] [place] [id number] 2019 () [id number] 2019 Department [facility] ( and others) [id number] 1960 Unknown [id number] 1960 Unknown [id number] 1960 Unknown [id number] 1960 Unknown [id number] Unknown Unknown [id number] Unknown [id number] Unknown [id number] Unknown [id number] Social History Date Type Detail Facility Alcohol Use: Former smoker [facility] Work Phone: Comment on above: very rarely Start: 11-06-2023 End: 09-23-2024 Caffeine Use [facility] Work Phone: Comment on above: [...] Start: 05-04-2014 End: 05-04-2014 Tobacco smoking status [facility] Unknown if ever smoked [facility] Start: 1960 Sex Assigned At Male W [facility] Start: 11-06-2023 End: 04-29-2025 Tobacco smoking status MAIS Ex-smoker [facility] Start: 08-24-1986 End: 08-24-2001 History of tobacco use Current smoker [facility] Start: 08-24-1986 End: 08-24-2001 History of tobacco use Cigarette Smoker [facility] Start: 11-06-2023 End: 09-23-2024 Tobacco use and exposure Smokeless tobacco non-user [facility] Start: 11-06-2023 End: 09-23-2024 Alcoholic beverage intake Current drinker of alcohol (finding) [facility] Start: 09-11-2023 End: 09-23-2024 Alcohol Use Disorder Identification Test - Consumption [AUDIT-C] [facility] How often to you hav e [...] Start: 12-29-2024 End: 01-10-2025 Sex Male (finding) [facility] Goals Date Patient Goal Desired Activity [...] component of a physician's clinical assessment. Test(s) 303058-JMF-D ; 170595-NEV-Z; 421832-Hqqaoewfnxnvb; 274085-Yawaxafmybq, Total; 758858-CQV-W (Total); 537713-Phrjn LDL-P; 990492-VWO Size; 126685-VS-YV Scorewas developed and its performance characteristics determinedby [employer]. It has not been cleared or approved by the Foodand Drug Administration.PATIENT WAS FASTINGPERFORMED BY: BN [facility] [address] [id number] BY: LabCo[facility] Medical and Educational CenterLarytm6877 [facility] [id number] 02-27-2020 LP-IR Score LP-IR Score 36 [facility] Work Phone: Comment on above: INSULIN RESISTANCE M ARNADINE <--Insulin Sensitive Insulin Resistant--> Percentile in Reference PopulationInsulin Resistance ScoreLP-IR Score Low 25th 50th 75th High <27 27 45 63 >63LP-IR Score is inaccurate if patient is non-fasting. .The LP-IR score is a laboratory developed index that has beenassociated with insulin resistance and diabetes risk and should beused as one component of a physician's clinical assessment. Test(s) 823127-DXQ-P ; 855797-XQQ-R; 958081-BYZ-H; 967408-Zvptebqzepiaa; 354021-Nxvdypilnzw, Total; 353081-URF-C (Total);153373-Vrfwr LDL-P; 629508-PXS Size; 446072-XC-DE Scorewas developed and its performance characteristics determinedby [employer]. It has not been cleared or approved by the Foodand Drug Administration.PATIENT WAS FASTINGPERFORMED BY: [facility] [address] [id number] 11-12-2019 LP-IR Score LP-IR Score 33 Comprehensive [...] component of a physician's clinical assessment. Test(s) 086442-MTB-H ; 496306-GKO-Y; 570447-QFL-C; 611727-Lrsgzoucgyevx; 125386-Akqpprmaipi, Total; 891608-QIN-E (Total);866993-Wfvkg LDL-P; 802480-WXY Size; 503911-QG-VR Scorewas developed and its performance characteristics determinedby [employer]. It has not been cleared or approved by the Foodand Drug Administration.PATIENT WAS FASTINGPERFORMED BY: [facility] [id number] [facility] [id number] BY: [employer] [id number] [facility] [id number] 10-04-2018 LP-IR Score LP-IR Score 27 [facility] Work Phone: Comment on [...] andDrug Administration. PATIENT WAS FASTINGP ERFORMED BY: BN [facility] [id number] [facility] [id number] BY: CB [facility] [id number] [facility] [id number] Mental Status Date Assessment Result Facility 05-04-2025 Cognitive function Level Of Consciousness Drowsy [facility] Work Phone: 05-04-2025 Cognitive function Voice/Name [facility] Work Phone: 12-29-2024 Cognitive function Voice/Name [facility] Work Phone: Clinical Notes 06-25-2024 to 05-04-2025 Mariah Esteban, LINH - 09/23/2024 9:00 AM ESTTelephone Encounter - Josefina Guerra - 06/25/2024 1:35 PM EDTTelephone Encounter - Josefina Guerra - 06/25/2024 1:35 PM EDT Note Date & Type Note Facility 05-04-2025 Consult note [facility] 05-04-2025 Consult note [facility] 12-29-2024 Consult note [facility] 12-29-2024 Procedure note [facility] 12-29-2024 Consult note [facility] 09-23-2024 History of Presen t illness [...] and return instructions. documented in this encounter [facility] 06-25-2024 Telephone encount er Note The following refill is being requested Medication: Gabapentin Dosage: 300mg Frequency: 4 tablets at night Day supply requested: Pharmacy: [facility] Next scheduled appt: 09/23/2024 Is pt out of medication? Not yet Patient's [facility] closed, this is a new pharmacy [facility] 06-25-2024 Miscellaneous Notes Formattin g of this note might be different from the original. The following refill is being requested Medication: Gabapentin Dosage: 300mg Frequency: 4 tablets at night Day supply requested: Pharmacy: [facility] Next scheduled appt: 09/23/2024 Is pt out of medication? Not yet Patient[facility] closed, this is a new pharmacy documented in this encounter [facility] Consult note Note Date/Time December 29, 2024 7:47am [facility] Medical Records Department [address] [place] [address] Pre-Anesthesia Evaluation 12/29/24 0740 MR#: [id number] Acct: [id number] Name: ITA EMERY Rep #:[id number] : 1960 64 From: Hunter Guevara MD PCP: Dr. Heather Howe, DO Status:RE G SDC Y Race: C Location: [place] [address] ASA Classification* ASA Classification ASA Classification: 2 [...] RFA AT MEDIAL BRANCH OF L4-L5 AND [id number] FLUOROSCOPY Anesthesia History Anesthesia History - burn nurse: Anesthesia History - burn nurse Hx Hospitalization No 12/17/24 13:55 Any Problems [...] take am of surgery PONV PONV - burn nurse: PONV - burn nurse Female No 12/17/24 13:55 HX of Motion [...] 12/29/24 07:02 Respiratory Assessment Respiratory Assessment - burn nurse: Respiratory Tract Infection Hx - burn nurse Hx Respiratory Tract Infection No 12/17/24 13:55 STOP Sleep Apnea STOP Sleep Apnea - burn nurse: STOP Sleep Apnea - burn nurse Hx Hypertension No 12/17/24 13:55 Hx Sleep [...] Tobacco Use History Tobacco Use History - burn nurse: Tobacco Use History - burn nurse Tobacco Use Smoking Status Former smoker 12/17/24 13:55 Hx Tobacco Use No 12/17/24 13:55 Years Smoking Packs Smoked per Day Smoking Cessation Date was No - quit smoking greater 12/17/24 13:55 within the last 15 years than 15 years ago Hx Smoking Cessation Date Hx Smoking Cessation Counseling Hematologic Medial History Hematologic Hx - burn nurse: 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 12/29/24 07 <Electronically signed by Hunter kraus MD> Date _ Hunter Guevara MD Cosigner Signature: Date CC: ~ Signed [facility] Work Phone: Consult note Author Latanya Day [facility] Note Date/Time December 29, 2024 8:2 7am [facility] Medical Records Department [address] [place] [address] Anesthesia Postop Eval I 12/29/24825 MR#: [id number] Acct: [id number] Name: ITA EMERY Rep #:[id number] : 1960 64 From: Latanya Granda CRNA PCP: Dr. Heather Howe, DO Status:RE G SDC Y Race: C Location: [place] [address] Anesthesia: Postop Eval I Current Vital Signs [...] completed: Yes 12/29/24826 <Electronically signed by Latanya Milosevi c FERRY OPERATOR> Date _ Latanya Granda FERRY OPERATOR Cosigner Signature: Date CC: ~ Signed [facility] Work Phone: Consult note Author Hunter Guevara [facility] Note Date/Time May 04, 2025 7:48 am [facility] Medical Records Department [address] [place] [address] [place] [address] Pre-Anesthesia Evaluation 05/04/25 0743 MR#: [id number] Acct: [id number] Name: ITA EMERY Rep #:[id number] : 1960 64 From: Hunter Guevara MD PCP: Dr. Heather Howe, DO Status: G SD Y Race: C Location: [place] [address] ASA Classification* ASA Classification ASA Classification: 2 [...] Patient and Chart Anesthesia Focused Assessment* Temperature: 97.3 F Pulse Rate: 64 Blood Pressure: 111/87 Respiratory Rate: 16 Pulse Ox: 100 Oxygen Delivery Method: Room Air Airway Assessment Mouth opens: >3 cm Mallampati Score: IV Teeth Condition: Caps/Crowns ([place] left lower molar. It is tight.) Neck Range of motion (ROM): Limited ROM (Somewhat Decreased) Labs Anesthesia Preop lab: CBC WBC 5.9 [...] COAG Pre-Assessment Diagnosis/Proposed Procedure Planned Operative Procedure(s): (R) RIGHT LUMBAR RADIOFREQUENCY ABLATION AT MEDIAL BRANCH AT L4 L5 S1 UNDER FLUOROSCOPY Anesthesia History Anesthesia History - burn nurse: Anesthesia History - burn nurse Hx Hospitalization No 04/29/25 10:14 Any Problems With Anesthesia No 04/29/25 10:14 Cholinesterase deficiency No 04/29/25 10:14 You/Your Family Experience No 04/29/25 10:14 fever (hyperthermia) with Relationship Recent Exposure to Contagious No 05/04/25 07:20 Disease Does patient have nerve No 04/29/25 10:14 stimulator Patient instructed to have device shut off --Does patient have Pacemaker No 05/04/25 07:20 or ICD? When Was Last Pacemaker Check QUESTION #4 FULL TEXT: You/Your Family Experience fever (hyperthermia) with Anesthesia Last Oral Intake Last Oral intake: Last Oral Intake NPO since 21:00 05/04/25 07:20 Meds taken in AM with sips of Yes 05/04/25 07:20 water? 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 - burn nurse: PONV - burn nurse Female No 04/29/25 10:14 HX of Motion Sickness No 04/29/25 10:14 HX of N/V After Surgery No 04/29/25 10:14 Non-Smoker Yes 04/29/25 10:14 Duration of Surgery greater No 04/29/25 10:14 than 60 minutes Number of Risk Factors 1 04/29/25 10:14 PONV Score Low Risk 04/29/25 10:14 Height & Weight Height & Weight: Anesthesia: Height & Weight Height 5 ft 11 in 05/04/25 07:20 Weight: 89.8 kg 05/04/25 07:20 Body Mass Index (BMI) 27.6 05/04/25 07:20 Respiratory Assessment Respiratory Assessment - burn nurse: Respiratory Tract Infection Hx - burn nurse Hx Respiratory Tract Infection No 04/29/25 10:14 STOP Sleep Apnea STOP Sleep Apnea - burn nurse: STOP Sleep Apnea - burn nurse Hx Hypertension No 04/29/25 10:14 Hx Sleep Apnea Yes 04/29/25 10:14 CPAP Yes 04/29/25 10:14 BIPAP No 04/29/25 10:14 Do you snore loudly (louder than talking or can be heard Do you often feel tired/ fatigued/ sleepy during daytime? Has anyone observed you stop breathing during sleep? STOP Results Positive 04/29/25 10:14 QUESTION #5 FULL TEXT : Do you snore loudly (louder than talking or can be heard through closed doors)? 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 Specify any problems Hx of Preganancy in last 3 N/A 04/29/25 10:14 Months Nurse Filling Out Transfusion [facility] 04/29/25 10:14 & Questions: Date: 04/29/25 04/29/25 10:14 Time: 10:16 04/29/25 10:14 Patient unable to answer at this time (ie. confused, unrespo /Reproduction History /Reproductive History - burn nurse: /Reproductive Hx- burn nurse Hx Now No 04/29/25 10:14 Gestational Age (in weeks): EDC: Hx Hx Para Hx Section SAB No 04/29/25 10:14 Active Medications Active Medications: Current Medications Generic Name Dose Route Start Last Admin Trade Name Freq PRN Reason Stop Dose Admin Lactated Ringer's 1,000 mls @ 15 mls/hr 05/04/25 07:15 05/04/25 07:20 IV 15 mls/hr .Q48H ATTILA Administration PFSH Medical History CPAP (continuous positive airway pressure) dependence Sleep apnea Wears glasses History of steroid therapy Prostate [...] 40 mg tablet,delayed 40 mg PO DAILY 12/1705/04/25 History release pravastatin 20 mg tablet 20 mg PO DAILY 12/17/2412/13 History tamsulosin 0.4 mg capsule (Flomax) 0.4 mg PO DAILY 03/0812/28/24 History Allergy/AdvReac Type Severity Reaction Status Date / Time No Known Allergies Allergy Verified 05/04/25 07:14 Surgical History H/O radiofrequency ablation (RFA) of nerve of lumbar spine Trigger finger, right middle finger S/P left rotator cuff repair Social History Smoking Status: Former smoker Review of Systems (Anesthesia) ROS Narrative System reviewed and no additional complaints, except as documented. 05/04/25 0748 <Electronically signed by Hunter kraus MD> Date _ Hunter Guevara MD Cosigner Signature: Date CC: ~ Signed [facility] Work Phone: Consult note Author [facility] Note Date/Time May 04, 2025 8:41 am [facility] Medical Records Department [address] [place] [address] Anesthesia Postop Eval I 05/04/25 0840 MR#: [id number] Acct: [id number] Name: ITA EMERY Rep #:[id number] : 1960 64 From: Sonido dwyer CRNA PCP: Dr. Heather Howe, DO Status:RE G SDC Y Race: C Location: [place] [address] Anesthesia: Postop Eval I Current Vital Signs Temperature: 98.3 F Pulse Rate: 83 Blood Pressure: 119/71 Respiratory Rate: 15 Pulse Ox: 98 Oxygen Delivery Method: Room Air Assessment Airway patent: Yes Spontaneous unlabored respirations: Yes Mental status: Awake and Calm nausea: No Vomiting: No Anesthesia Complication: No Fluid Hydration Crystalloid volume administer (ml): 300 Total IV fluid infused: 300 Progress Note Anesthesia document: Postop Eval 1 completed: Yes 05/04/25 0841 <Electronically signed by Sonido Navarro lorelei FERRY OPERATOR> Date _ Sonido [place] FERRY OPERATOR Cosigner Signature: Date CC: ~ Signed [facility] Work Phone: Evaluation noteNo assessment information available [facility] Work Phone: Evaluation note* Diagnosis RLS (restless legs syndrome)- Primary Restless legs syndrome (RLS) [facility] Diagnosis RLS (restless legs syndrome) Restless legs syndrome (RLS) documented in this encounter [facility]* Diagnosis Neuropathy- Primary Mononeuritis of unspecified site RLS (restless legs syndrome) Restless legs syndrome (RLS) [facility]* Name Dates Details Patient Instructions Indication:Nonsmoker Start:31-Jan-2021 Instruction Type:Provider Instructions for Treatment How to Access Health Informa tion Online using Patient Portal and 3rd [employer] Apps Indication:Nonsmoker Start:31-Jan-2021 Instruction Type:Patient Education How to Access Health Informa tion Online using Patient Portal and 3rd [employer] Apps Indication:Nonsmoker Start:25-Nov-2020 Instruction Type:Patient Education Patient Instructions Indication:Nonsmoker Start:25-Nov-2020 Instruction Type:Provider Instructions for Treatment How to Access Health Informa tion Online using Patient Portal and [employer]rd [employer] Apps Indication:Nonsmoker Start:22-Nov-2020 Instruction Type:Patient Education Patient Instructions Indication:Nonsmoker Start:22-Nov-2020 Instruction Type:Provider Instructions for Treatment Patient Instructions Indication:Nonsmoker Start:17-Nov-2020 Instruction Type:Provider Instructions for Treatment How to Access Health Informa tion Online using Patient Portal and 3rd [employer] Apps Indication:Nonsmoker Start:17-Nov-2020 Instruction Type:Patient Education How [...] tion Online using Patient Portal and [employer]rd [employer] Apps Indication:Nonsmoker Start:31-Jan-2021 Instruction Type:Patient Education How to Access Health Informa tion Online using Patient Portal and [employer]rd [employer] Apps Indication:Nonsmoker Start:25-Nov-2020 Instruction Type:Patient Education Patient Instructions Indication:Nonsmoker Start:25-Nov-2020 Instruction Type:Provider Instructions for Treatment How to Access Health Informa tion Online using Patient Portal and [employer] Indication:Nonsmoker Start:22-Nov-2020 Instruction Type:Patient Education Patient Instructions Indication:Nonsmoker Start:22-Nov-2020 Instruction Type:Provider Instructions for Treatment Patient Instructions Indication:Nonsmoker Start:17-Nov-2020 Instruction Type:Provider Instructions for Treatment How to Access Health Informa tion Online using Patient Portal and [employer] Apps Indication:Nonsmoker Start:17-Nov-2020 Instruction Type:Patient Education How [...] tion Online using Patient Portal and [employer] Apps Indication:Impaired Fasting Glucose (Renamed from Elevated fasting blood sugar) Start:06-Apr-2021 Instruction Type:Patient Education Patient Instructions Indication:Nonsmoker Start:31-Jan-2021 Instruction Type:Provider Instructions for Treatment How to Access Health Informa tion Online using Patient Portal and [employer] Apps Indication:Nonsmoker Start:31-Jan-2021 Instruction Type:Patient Education How to Access Health Informa tion Online using Patient Portal and [employer] Apps Indication:Nonsmoker Start:25-Nov-2020 Instruction Type:Patient Education Patient Instructions Indication:Nonsmoker Start:25-Nov-2020 Instruction Type:Provider Instructions for Treatment How to Access Health Informa tion Online using Patient Portal and [employer] Apps Indication:Nonsmoker Start:22-Nov-2020 Instruction Type:Patient Education Patient Instructions Indication:Nonsmoker Start:22-Nov-2020 Instruction Type:Provider Instructions for Treatment Patient Instructions Indication:Nonsmoker Start:17-Nov-2020 Instruction Type:Provider Instructions for Treatment How to Access Health Informa tion Online using Patient Portal and [employer] Apps Indication:Nonsmoker Start:17-Nov-2020 Instruction Type:Patient Education How [...] tion Online using Patient Portal and [employer] Apps Indication:Impaired Fasting Glucose (Renamed from Elevated fasting blood sugar) Start:06-Apr-2021 Instruction Type:Patient Education Patient Instructions Indication:Nonsmoker Start:31-Jan-2021 Instruction Type:Provider Instructions for Treatment How to Access Health Informa tion Online using Patient Portal and [employer]rd [employer] Apps Indication:Nonsmoker Start:31-Jan-2021 Instruction Type:Patient Education How to Access Health Informa tion Online using Patient Portal and [employer] Apps Indication:Nonsmoker Start:25-Nov-2020 Instruction Type:Patient Education Patient Instructions Indication:Nonsmoker Start:25-Nov-2020 Instruction Type:Provider Instructions for Treatment How to Access Health Informa tion Online using Patient Portal and [employer] Apps Indication:Nonsmoker Start:22-Nov-2020 Instruction Type:Patient Education Patient Instructions Indication:Nonsmoker Start:22-Nov-2020 Instruction Type:Provider Instructions for Treatment Patient Instructions Indication:Nonsmoker Start:17-Nov-2020 Instruction Type:Provider Instructions for Treatment How to Access Health Informa tion Online using Patient Portal and [employer] Apps Indication:Nonsmoker Start:17-Nov-2020 Instruction Type:Patient Education How [...] tion Online using Patient Portal and [employer] Apps Indication:Impaired Fasting Glucose (Renamed from Elevated fasting blood sugar) Start:06-Apr-2021 Instruction Type:Patient Education Patient Instructions Indication:Nonsmoker Start:31-Jan-2021 Instruction Type:Provider Instructions for Treatment How to Access Health Informa tion Online using Patient Portal and [employer]rd [employer] Apps Indication:Nonsmoker Start:31-Jan-2021 Instruction Type:Patient Education How to Access Health Informa tion Online using Patient Portal and [employer] Apps Indication:Nonsmoker Start:25-Nov-2020 Instruction Type:Patient Education Patient Instructions Indication:Nonsmoker Start:25-Nov-2020 Instruction Type:Provider Instructions for Treatment How to Access Health Informa tion Online using Patient Portal and [employer] Apps Indication:Nonsmoker Start:22-Nov-2020 Instruction Type:Patient Education Patient Instructions Indication:Nonsmoker Start:22-Nov-2020 Instruction Type:Provider Instructions for Treatment Patient Instructions Indication:Nonsmoker Start:17-Nov-2020 Instruction Type:Provider Instructions for Treatment How to Access Health Informa tion Online using Patient Portal and [employer]rd [employer] Apps Indication:Nonsmoker Start:17-Nov-2020 Instruction Type:Patient Education How [...] Informa tion Online using Patient Portal and [employer] Apps Indication:Impaired Fasting Glucose (Renamed from Elevated fasting blood sugar) Start:06-Apr-2021 Instruction Type:Patient Education Patient Instructions Indication:Nonsmoker Start:31-Jan-2021 Instruction Type:Provider Instructions for Treatment How to Access Health Informa tion Online using Patient Portal and [employer]rd [employer] Apps Indication:Nonsmoker Start:31-Jan-2021 Instruction Type:Patient Education How to Access Health Informa tion Online using Patient Portal and [employer] Apps Indication:Nonsmoker Start:25-Nov-2020 Instruction Type:Patient Education Patient Instructions Indication:Nonsmoker Start:25-Nov-2020 Instruction Type:Provider Instructions for Treatment How to Access Health Informa tion Online using Patient Portal and [employer] Apps Indication:Nonsmoker Start:22-Nov-2020 Instruction Type:Patient Education Patient Instructions Indication:Nonsmoker Start:22-Nov-2020 Instruction Type:Provider Instructions for Treatment Patient Instructions Indication:Nonsmoker Start:17-Nov-2020 Instruction Type:Provider Instructions for Treatment How to Access Health Informa tion Online using Patient Portal and [employer]rd [employer] Apps Indication:Nonsmoker Start:17-Nov-2020 Instruction Type:Patient Education How [...] Informa tion Online using Patient Portal and [email or web address] Apps Indication:Impaired Fasting Glucose (Renamed from Elevated fasting blood sugar) Start:06-Apr-2021 Instruction Type:Patient Education Patient Instructions Indication:Nonsmoker Start:31-Jan-2021 Instruction Type:Provider Instructions for Treatment How to Access Health Informa tion Online using Patient Portal and [employer] Apps Indication:Nonsmoker Start:31-Jan-2021 Instruction Type:Patient Education How to Access Health Informa tion Online using Patient Portal and [employer] Apps Indication:Nonsmoker Start:25-Nov-2020 Instruction Type:Patient Education Patient Instructions Indication:Nonsmoker Start:25-Nov-2020 Instruction Type:Provider Instructions for Treatment How to Access Health Informa tion Online using Patient Portal and [employer] Apps Indication:Nonsmoker Start:22-Nov-2020 Instruction Type:Patient Education Patient Instructions Indication:Nonsmoker Start:22-Nov-2020 Instruction Type:Provider Instructions for Treatment Patient Instructions Indication:Nonsmoker Start:17-Nov-2020 Instruction Type:Provider Instructions for Treatment How to Access Health Informa tion Online using Patient Portal and [employer] Apps Indication:Nonsmoker Start:17-Nov-2020 Instruction Type:Patient Education How [...] tion Online using Patient Portal and [employer] Apps Indication:Impaired Fasting Glucose (Renamed from Elevated fasting blood sugar) Start:06-Apr-2021 Instruction Type:Patient Education Patient Instructions Indication:Nonsmoker Start:31-Jan-2021 Instruction Type:Provider Instructions for Treatment How to Access Health Informa tion Online using Patient Portal and [employer] Apps Indication:Nonsmoker Start:31-Jan-2021 Instruction Type:Patient Education How to Access Health Informa tion Online using Patient Portal and [employer] Apps Indication:Nonsmoker Start:25-Nov-2020 Instruction Type:Patient Education Patient Instructions Indication:Nonsmoker Start:25-Nov-2020 Instruction Type:Provider Instructions for Treatment How to Access Health Informa tion Online using Patient Portal and [employer] Apps Indication:Nonsmoker Start:22-Nov-2020 Instruction Type:Patient Education Patient Instructions Indication:Nonsmoker Start:22-Nov-2020 Instruction Type:Provider Instructions for Treatment Patient Instructions Indication:Nonsmoker Start:17-Nov-2020 Instruction Type:Provider Instructions for Treatment How to Access Health Informa tion Online using Patient Portal and [employer] Apps Indication:Nonsmoker Start:17-Nov-2020 Instruction Type:Patient Education How [...] tion Online using Patient Portal and [employer] Apps Indication:BMI 28.0-28.9,adult Start:23-Jan-2022 Instruction Type:Patient Education Patient Instructions Indication:Impaired Fasting Glucose (Renamed from Elevated fasting blood sugar) Start:06-Apr-2021 Instruction Type:Provider Instructions for Treatment How to Access Health Informa tion Online using Patient Portal and [employer] Apps Indication:Impaired Fasting Glucose (Renamed from Elevated fasting blood sugar) Start:06-Apr-2021 Instruction Type:Patient Education Patient Instructions Indication:Nonsmoker Start:31-Jan-2021 Instruction Type:Provider Instructions for Treatment How to Access Health Informa tion Online using Patient Portal and [employer] Apps Indication:Nonsmoker Start:31-Jan-2021 Instruction Type:Patient Education How to Access Health Informa tion Online using Patient Portal and [employer] Apps Indication:Nonsmoker Start:25-Nov-2020 Instruction Type:Patient Education Patient Instructions Indication:Nonsmoker Start:25-Nov-2020 Instruction Type:Provider Instructions for Treatment How to Access Health Informa tion Online using Patient Portal and [employer] Apps Indication:Nonsmoker Start:22-Nov-2020 Instruction Type:Patient Education Patient Instructions Indication:Nonsmoker Start:22-Nov-2020 Instruction Type:Provider Instructions for Treatment Patient Instructions Indication:Nonsmoker Start:17-Nov-2020 Instruction Type:Provider Instructions for Treatment How to Access Health Informa tion Online using Patient Portal and [employer] Apps Indication:Nonsmoker Start:17-Nov-2020 Instruction Type:Patient Education How [...] Informa tion Online using Patient Portal and [email or web address] Apps Indication:BMI 28.0-28.9,adult Start:23-Jan-2022 Instruction Type:Patient Education Patient Instructions Indication:Impaired Fasting Glucose (Renamed from Elevated fasting blood sugar) Start:06-Apr-2021 Instruction Type:Provider Instructions for Treatment How to Access Health Informa tion Online using Patient Portal and [email or web address] Apps Indication:Impaired Fasting Glucose (Renamed from Elevated fasting blood sugar) Start:06-Apr-2021 Instruction Type:Patient Education Patient Instructions Indication:Nonsmoker Start:31-Jan-2021 Instruction Type:Provider Instructions for Treatment How to Access Health Informa tion Online using Patient Portal and [employer] Apps Indication:Nonsmoker Start:31-Jan-2021 Instruction Type:Patient Education How to Access Health Informa tion Online using Patient Portal and [employer] Apps Indication:Nonsmoker Start:25-Nov-2020 Instruction Type:Patient Education Patient Instructions Indication:Nonsmoker Start:25-Nov-2020 Instruction Type:Provider Instructions for Treatment How to Access Health Informa tion Online using Patient Portal and [employer] Apps Indication:Nonsmoker Start:22-Nov-2020 Instruction Type:Patient Education Patient Instructions Indication:Nonsmoker Start:22-Nov-2020 Instruction Type:Provider Instructions for Treatment Patient Instructions Indication:Nonsmoker Start:17-Nov-2020 Instruction Type:Provider Instructions for Treatment How to Access Health Informa tion Online using Patient Portal and [employer] Apps Indication:Nonsmoker Start:17-Nov-2020 Instruction Type:Patient Education How [...] Informa tion Online using Patient Portal and [employer] Apps Indication:BMI 28.0-28.9,adult Start:23-Jan-2022 Instruction Type:Patient Education Patient Instructions Indication:Impaired Fasting Glucose (Renamed from Elevated fasting blood sugar) Start:06-Apr-2021 Instruction Type:Provider Instructions for Treatment How to Access Health Informa tion Online using Patient Portal and [employer] Apps Indication:Impaired Fasting Glucose (Renamed from Elevated fasting blood sugar) Start:06-Apr-2021 Instruction Type:Patient Education Patient Instructions Indication:Nonsmoker Start:31-Jan-2021 Instruction Type:Provider Instructions for Treatment How to Access Health Informa tion Online using Patient Portal and [employer] Apps Indication:Nonsmoker Start:31-Jan-2021 Instruction Type:Patient Education How to Access Health Informa tion Online using Patient Portal and [employer] Apps Indication:Nonsmoker Start:25-Nov-2020 Instruction Type:Patient Education Patient Instructions Indication:Nonsmoker Start:25-Nov-2020 Instruction Type:Provider Instructions for Treatment How to Access Health Informa tion Online using Patient Portal and [employer] Apps Indication:Nonsmoker Start:22-Nov-2020 Instruction Type:Patient Education Patient Instructions Indication:Nonsmoker Start:22-Nov-2020 Instruction Type:Provider Instructions for Treatment Patient Instructions Indication:Nonsmoker Start:17-Nov-2020 Instruction Type:Provider Instructions for Treatment How to Access Health Informa tion Online using Patient Portal and [employer] Apps Indication:Nonsmoker Start:17-Nov-2020 Instruction Type:Patient Education How [...] Informa tion Online using Patient Portal and [email or web address] Apps Indication:BMI 28.0-28.9,adult Start:23-Jan-2022 Instruction Type:Patient Education Patient Instructions Indication:Impaired Fasting Glucose (Renamed from Elevated fasting blood sugar) Start:06-Apr-2021 Instruction Type:Provider Instructions for Treatment How to Access Health Informa tion Online using Patient Portal and [email or web address] Apps Indication:Impaired Fasting Glucose (Renamed from Elevated fasting blood sugar) Start:06-Apr-2021 Instruction Type:Patient Education Patient Instructions Indication:Nonsmoker Start:31-Jan-2021 Instruction Type:Provider Instructions for Treatment How to Access Health Informa tion Online using Patient Portal and [employer] Apps Indication:Nonsmoker Start:31-Jan-2021 Instruction Type:Patient Education How to Access Health Informa tion Online using Patient Portal and [employer] Apps Indication:Nonsmoker Start:25-Nov-2020 Instruction Type:Patient Education Patient Instructions Indication:Nonsmoker Start:25-Nov-2020 Instruction Type:Provider Instructions for Treatment How to Access Health Informa tion Online using Patient Portal and [employer] Apps Indication:Nonsmoker Start:22-Nov-2020 Instruction Type:Patient Education Patient Instructions Indication:Nonsmoker Start:22-Nov-2020 Instruction Type:Provider Instructions for Treatment Patient Instructions Indication:Nonsmoker Start:17-Nov-2020 Instruction Type:Provider Instructions for Treatment How to Access Health Informa tion Online using Patient Portal and [employer] Apps Indication:Nonsmoker Start:17-Nov-2020 Instruction Type:Patient Education How [...] Informa tion Online using Patient Portal and [employer] Apps Indication:BMI 28.0-28.9,adult Start:23-Jan-2022 Instruction Type:Patient Education Patient Instructions Indication:Impaired Fasting Glucose (Renamed from Elevated fasting blood sugar) Start:06-Apr-2021 Instruction Type:Provider Instructions for Treatment How to Access Health Informa tion Online using Patient Portal and [employer] Apps Indication:Impaired Fasting Glucose (Renamed from Elevated fasting blood sugar) Start:06-Apr-2021 Instruction Type:Patient Education Patient Instructions Indication:Nonsmoker Start:31-Jan-2021 Instruction Type:Provider Instructions for Treatment How to Access Health Informa tion Online using Patient Portal and [employer] Apps Indication:Nonsmoker Start:31-Jan-2021 Instruction Type:Patient Education How to Access Health Informa tion Online using Patient Portal and [employer] Apps Indication:Nonsmoker Start:25-Nov-2020 Instruction Type:Patient Education Patient Instructions Indication:Nonsmoker Start:25-Nov-2020 Instruction Type:Provider Instructions for Treatment How to Access Health Informa tion Online using Patient Portal and [employer] Apps Indication:Nonsmoker Start:22-Nov-2020 Instruction Type:Patient Education Patient Instructions Indication:Nonsmoker Start:22-Nov-2020 Instruction Type:Provider Instructions for Treatment Patient Instructions Indication:Nonsmoker Start:17-Nov-2020 Instruction Type:Provider Instructions for Treatment How to Access Health Informa tion Online using Patient Portal and [employer] Apps Indication:Nonsmoker Start:17-Nov-2020 Instruction Type:Patient Education How [...] tion Online using Patient Portal and [employer] Apps Indication:BMI 28.0-28.9,adult Start:29-Jan-2023 Instruction Type:Patient Education Patient Instructions Indication:BMI 28.0-28.9,adult Start:23-Jan-2022 Instruction Type:Provider Instructions for Treatment How to Access Health Informa tion Online using Patient Portal and [employer] Apps Indication:BMI 28.0-28.9,adult Start:23-Jan-2022 Instruction Type:Patient Education Patient Instructions Indication:Impaired Fasting Glucose (Renamed from Elevated fasting blood sugar) Start:06-Apr-2021 Instruction Type:Provider Instructions for Treatment How to Access Health Informa tion Online using Patient Portal and [employer] Apps Indication:Impaired Fasting Glucose (Renamed from Elevated fasting blood sugar) Start:06-Apr-2021 Instruction Type:Patient Education Patient Instructions Indication:Nonsmoker Start:31-Jan-2021 Instruction Type:Provider Instructions for Treatment How to Access Health Informa tion Online using Patient Portal and [employer] Apps Indication:Nonsmoker Start:31-Jan-2021 Instruction Type:Patient Education How to Access Health Informa tion Online using Patient Portal and [employer] Apps Indication:Nonsmoker Start:25-Nov-2020 Instruction Type:Patient Education Patient Instructions Indication:Nonsmoker Start:25-Nov-2020 Instruction Type:Provider Instructions for Treatment How to Access Health Informa tion Online using Patient Portal and [employer] Apps Indication:Nonsmoker Start:22-Nov-2020 Instruction Type:Patient Education Patient Instructions Indication:Nonsmoker Start:22-Nov-2020 Instruction Type:Provider Instructions for Treatment Patient Instructions Indication:Nonsmoker Start:17-Nov-2020 Instruction Type:Provider Instructions for Treatment How to Access Health Informa tion Online using Patient Portal and [employer] Apps Indication:Nonsmoker Start:17-Nov-2020 Instruction Type:Patient Education How [...] tion Online using Patient Portal and [employer] Apps Indication:BMI 28.0-28.9,adult Start:29-Jan-2023 Instruction Type:Patient Education Patient Instructions Indication:BMI 28.0-28.9,adult Start:23-Jan-2022 Instruction Type:Provider Instructions for Treatment How to Access Health Informa tion Online using Patient Portal and [employer] Apps Indication:BMI 28.0-28.9,adult Start:23-Jan-2022 Instruction Type:Patient Education Patient Instructions Indication:Impaired Fasting Glucose (Renamed from Elevated fasting blood sugar) Start:06-Apr-2021 Instruction Type:Provider Instructions for Treatment How to Access Health Informa tion Online using Patient Portal and [employer] Apps Indication:Impaired Fasting Glucose (Renamed from Elevated fasting blood sugar) Start:06-Apr-2021 Instruction Type:Patient Education Patient Instructions Indication:Nonsmoker Start:31-Jan-2021 Instruction Type:Provider Instructions for Treatment How to Access Health Informa tion Online using Patient Portal and [employer] Apps Indication:Nonsmoker Start:31-Jan-2021 Instruction Type:Patient Education How to Access Health Informa tion Online using Patient Portal and [employer] Apps Indication:Nonsmoker Start:25-Nov-2020 Instruction Type:Patient Education Patient Instructions Indication:Nonsmoker Start:25-Nov-2020 Instruction Type:Provider Instructions for Treatment How to Access Health Informa tion Online using Patient Portal and [employer] Apps Indication:Nonsmoker Start:22-Nov-2020 Instruction Type:Patient Education Patient Instructions Indication:Nonsmoker Start:22-Nov-2020 Instruction Type:Provider Instructions for Treatment Patient Instructions Indication:Nonsmoker Start:17-Nov-2020 Instruction Type:Provider Instructions for Treatment How to Access Health Informa tion Online using Patient Portal and [employer] Apps Indication:Nonsmoker Start:17-Nov-2020 Instruction Type:Patient Education How [...] tion Online using Patient Portal and [employer] Apps Indication:BMI 28.0-28.9,adult Start:29-Jan-2023 Instruction Type:Patient Education Patient Instructions Indication:BMI 28.0-28.9,adult Start:23-Jan-2022 Instruction Type:Provider Instructions for Treatment How to Access Health Informa tion Online using Patient Portal and [employer] Apps Indication:BMI 28.0-28.9,adult Start:23-Jan-2022 Instruction Type:Patient Education Patient Instructions Indication:Impaired Fasting Glucose (Renamed from Elevated fasting blood sugar) Start:06-Apr-2021 Instruction Type:Provider Instructions for Treatment How to Access Health Informa tion Online using Patient Portal and [employer] Apps Indication:Impaired Fasting Glucose (Renamed from Elevated fasting blood sugar) Start:06-Apr-2021 Instruction Type:Patient Education Patient Instructions Indication:Nonsmoker Start:31-Jan-2021 Instruction Type:Provider Instructions for Treatment How to Access Health Informa tion Online using Patient Portal and [employer] Apps Indication:Nonsmoker Start:31-Jan-2021 Instruction Type:Patient Education How to Access Health Informa tion Online using Patient Portal and [employer] Apps Indication:Nonsmoker Start:25-Nov-2020 Instruction Type:Patient Education Patient Instructions Indication:Nonsmoker Start:25-Nov-2020 Instruction Type:Provider Instructions for Treatment How to Access Health Informa tion Online using Patient Portal and [employer] Apps Indication:Nonsmoker Start:22-Nov-2020 Instruction Type:Patient Education Patient Instructions Indication:Nonsmoker Start:22-Nov-2020 Instruction Type:Provider Instructions for Treatment Patient Instructions Indication:Nonsmoker Start:17-Nov-2020 Instruction Type:Provider Instructions for Treatment How to Access Health Informa tion Online using Patient Portal and [employer] Apps Indication:Nonsmoker Start:17-Nov-2020 Instruction Type:Patient Education How [...] Start:17-Nov-2015 Instruction Type:Patient Education How to access [employer] online - Detail Indication:Chronic right shoulder pain [...] for referral (narrative)No reason for [facility]: Family History No Family [...] tion Online using Patient Portal and [employer] Apps Indication:Nonsmoker Start:25-Nov-2020 Instruction Type:Patient Education Patient Instructions Indication:Nonsmoker Start:25-Nov-2020 Instruction Type:Provider Instructions for Treatment How to Access Health Informa tion Online using Patient Portal and [employer] Apps Indication:Nonsmoker Start:22-Nov-2020 Instruction Type:Patient Education Patient Instructions Indication:Nonsmoker Start:22-Nov-2020 Instruction Type:Provider Instructions for Treatment Patient Instructions Indication:Nonsmoker Start:17-Nov-2020 Instruction Type:Provider Instructions for Treatment How to Access Health Informa tion Online using Patient Portal and 3rd [employer] Party Apps Indication:Nonsmoker Start:17-Nov-2020 Instruction Type:Patient Education How [...] Records Found Name Dates Details Immunization Registry [place] - Effective on 01/17/2021. Expiration date unspecified Effective:17-Jan-2021 Name Dates Details Immunization Registry [place] - Effective on 01/17/2021. Expiration date unspecified Effective:17-Jan-2021 Name Dates Details Immunization Registry [place] - Effective on 01/17/2021. Expiration date unspecified Effective:17-Jan-2021 Name Dates Details Immunization Registry [place] - Effective on 01/17/2021. Expiration date unspecified Effective:17-Jan-2021 Name Dates Details Immunization Registry [place] - Effective on 01/17/2021. Expiration date unspecified Effective:17-Jan-2021 Name Dates Details Immunization Registry [place] - Effective on 01/17/2021. Expiration date unspecified Effective:17-Jan-2021 Name Dates Details Immunization Registry [place] - Effective on 01/17/2021. Expiration date unspecified Effective:17-Jan-2021 Name Dates Details Immunization Registry [place] - Effective on 01/17/2021. Expiration date unspecified Effective:17-Jan-2021 Name Dates Details Immunization Registry [place] - Effective on 01/17/2021. Expiration date unspecified Effective:17-Jan-2021 Name Dates Details Immunization Registry [place] - Effective on 01/17/2021. Expiration date unspecified Effective:17-Jan-2021 Name Dates Details Immunization Registry [place] - Effective on 01/17/2021. Expiration date unspecified Effective:17-Jan-2021 Name Dates Details Immunization Registry [place] - Effective on 01/17/2021. Expiration date unspecified Effective:17-Jan-2021 Name Dates Details Immunization Registry [place] - Effective on 01/17/2021. Expiration date unspecified Effective:17-Jan-2021 Advance Directive Response Recorded Date/ Time Living Will No December 17, 2024 2:55pm Power of Life Insurance Actuary No December 17 2:55pm Advance Directive Response Recorded Date/ Time Living Will No December 17, 2024 2:55pm Do you have a Healthcare Power of Life Insurance Actuary? No December 17, 2024 2:55pm Advance Directive Response Recorded Date/ Time Do you have a Healthcare Power of Life Insurance Actuary? No April 29, 2025 10:14am Chief Complaint and Reason for Visit Chief Complaint DYSPHAGIA 12 MM TABL ET Chief Complaint BMP Chief Complaint Admit Date RIGHT LUMBAR RADIOFREQUENCY ABLATION AT [facility] May 04, 2025 6:58am Summary Purpose Additional Source Comments Goals (unrecognized section and content) Goals may be documented in a n alternate sectionGoals may be documented in an alternate sectionGoals may be documented in an alternate sectionGoals may be documented in an alternate section Care Teams (unrecognized sec tion and content) Team Status: Active Member Role Status Dates Dr. Bonnie Torres , DO Family Provider Active Dr. Heather Howe , DO Primary Care Provider Active Team Status: Inactive Member Role Status Dates Dr. Heather Howe , DO Primary Care Provider Active Dr. Carlos Santo MD Attending Provider, Referring Provider Active Team Status: Inactive Member Role Status Dates Dr. Heather Howe , DO Primary Care Provider Active Mariah Esteban PALLIATIVE NURSE, PALLIATIVE NURSE-C Attending Provider, Referr ing Provider Active Team Status: Inactive Member Role Status Dates Dr. Heather Howe , DO Primary Care Provider Active Dr. Johann Meyers MD Attending Provider, Referr ing Provider Active Room Service Manager Relationship Specialty Start Date End Date Heather Howe DO [address] [place] [address] PCP - General Internal Medicine 09/25/23 Room Service Manager Relationship Specialty Start Date End Date Shyam Heather [address] [place] [address] PCP - General Internal Medicine 09/25/23 Room Service Manager Relationship Specialty Start Date End Date Shyam Heather [address] [place] [address] PCP - General Internal Medicine 09/25/23 Room Service Manager Relationship Specialty Start Date End Date Heather Howe DO [address] [place] [id number] PCP - General Internal Medicine 09/25/23 Team [...] 05, 2025 End: January 05, 2025 Laura Ha Attending Provider Active Start : January 05, 2025 End: January 05, 2025 Laura Ha Referring Provider Active Start : January 05, 2025 End: January 05, 2025 Team Status: Active Member Role/Relationship Status Dates Dr. Heather Howe DO Primary Care Provider Active Team Status: Inactive Member Role/Relationship Status Dates Dr. Heather Howe DO Primary Care Provider Active Start: January 05, 2025 End: January 05, 2025 Laura Ha Attending Provider Active Start : January 05, 2025 End: January 05, 2025 Laura Ha Referring Provider Active Start : January 05, 2025 End: January 05, 2025 Team Status: Inactive Member Role/Relationship Status Dates Dr. Heather Howe DO Primary Care Provider Active Start: May 04, 2025 End: May 04, 2025 Dr. Carlos Santo MD Attending Provider Active Start: May 04, 2025 End: May 04, 2025 Dr. Carlos Santo MD Referring Provider Active Start: May 04, 2025 End: May 04, 2025 (unrecognized sect ion and content) No Status Records FoundNo Status Records FoundNo Status Records Found INFORMATION SOURCE (unrecogn ized section and content) DATE CREATED AUTHOR 12/21/2022 [facility] DATE CREATED AUTHOR AUTHOR'S ORGANIZ ATION 09/26/2024 [facility] EPIC DATE CREATED AUTHOR AUTHOR'S ORGANIZ ATION 07/19/2025 [facility] Reason for Visit (unrecogniz ed section and [...] BE BASED ON THE PRIMARY CLINICAL RECORDS. Shareholder [employer] provides no warranty or guarantee of the accuracy or completeness of information in this document.
[2025-07-20] MEDS: Lactated Ringers 1,000 ML 15 ML IV (07:11)
--- NOTE | 2025-07-20 07:42 | PRE.ANES_ITS ---
ASA Classification* ASA Classification ASA Classification: 2 Assessment & Plan Anesthesia* Anesthesia Assessment Anesthesia Assessment: Discussed sedation and/or anesthesia options, risks, benefits, and alternatives with patient/parents/legal guardian/POA. Questions invited. The patient/parents/legal guardian/POA seems to understand and agrees to proceed with anesthesia plan. Reviewed the physical assessment, medical history, allergy history and patient home medications list prior to surgery/procedure/anesthetic and documented any changes. Performed airway and anesthesia risk assessments. Anesthesia Type Anesthesia Type: MAC History Source History Obtained from:: Patient and Chart Anesthesia Focused Assessment* Temperature: 97.7 F Pulse Rate: 69 Blood Pressure: 124/89 Respiratory Rate: 16 Pulse Ox: 100 Oxygen Delivery Method: Room Air Airway Assessment Mouth opens: >3 cm Mallampati Score: IV Teeth Condition: Caps/Crowns (Patient has a crown. It is tight.) Neck Range of motion (ROM): Limited ROM (Somewhat Decreased) Labs Anesthesia Preop lab: CBC WBC, (4.4-11.0) 5.9 K/mm3 09/26/23, 08:24 RBC, (4.6-6.2) 5.16 M/mm3 09/26/23, 08:24 Hgb, (13.0-16.5) 14.8 g/dL 09/26/23, 08:24 Hct, (40-54) 46.3 % 09/26/23, 08:24 Plt Count, (150-450) 302 K/mm3 09/26/23, 08:24 CHEMISTRY Potassium, (3.5-5.1) 4.0 mmol/L 09/26/23, 08:24 Sodium, (136-145) 138 mmol/L 09/26/23, 08:24 BUN, (7-18) 14 mg/dL 09/26/23, 08:24 Creatinine, (0.70-1.30) 1.07 mg/dL 09/26/23, 08:24 Glucose, (74-106) 96 mg/dL 09/26/23, 08:24 TSH, (0.358-3.74) 1.23 uIU/mL 09/26/23, 08:24 COAG Pre-Assessment Diagnosis/Proposed Procedure Planned Operative Procedure(s): Radiofrequency ablation lumbar L4-L5 and S1. 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 When Was Last Pacemaker Check QUESTION #4 FULL TEXT: You/Your Family Experience fever (hyperthermia) with Anesthesia Last Oral Intake Last Oral intake: Last Oral Intake NPO since 21:15 07/20/25 06:59 Meds taken in AM with sips of Yes 07/20/25 06:59 water? Meds patient instructed to see med list 07/20/25 06:59 take am of surgery Any additional information?: Yes Meds taken in AM with sips of water?: Yes PONV PONV - psych sales specialist: PONV - psych sales specialist Female No 07/13/25 15:13 HX of Motion Sickness No 07/13/25 15:13 HX of N/V After Surgery No 07/13/25 15:13 Non-Smoker Yes 07/13/25 15:13 Duration of Surgery greater No 07/13/25 15:13 than 60 minutes Number of Risk Factors 1 07/13/25 15:13 PONV Score Low Risk 07/13/25 15:13 Height & Weight Height & Weight: Anesthesia: Height & Weight Height 5 ft 11 in 07/20/25 06:59 Weight: 86 kg 07/20/25 06:59 Body Mass Index (BMI) 26.4 07/20/25 06:59 Respiratory Assessment Respiratory Assessment - psych sales specialist: Respiratory Tract Infection Hx - psych sales specialist Hx Respiratory Tract Infection No 07/13/25 15:13 STOP Sleep Apnea STOP Sleep Apnea - psych sales specialist: STOP Sleep Apnea - psych sales specialist Hx Hypertension No 07/13/25 15:13 Hx Sleep Apnea Yes 07/13/25 15:13 CPAP Yes 07/13/25 15:13 BIPAP No 07/13/25 15:13 Do you snore loudly (louder than talking or can be heard Do you often feel tired/ fatigued/ sleepy during daytime? Has anyone observed you stop breathing during sleep? STOP Results Positive 07/13/25 15:13 QUESTION #5 FULL TEXT : Do you snore loudly (louder than talking or can be heard through closed doors)? Tobacco Use History Tobacco Use History - psych sales specialist: Tobacco Use History - psych sales specialist Tobacco Use Smoking Status Former smoker 07/13/25 15:13 Hx Tobacco Use No 07/13/25 15:13 Years Smoking Packs Smoked per Day Smoking Cessation Date was No - quit smoking greater 07/13/25 15:13 within the last 15 years than 15 years ago Hx Smoking Cessation Date Hx Smoking Cessation No 07/13/25 15:13 Counseling Hematologic Medial History Hematologic Hx - psych sales specialist: Hematologic Medical Hx - fish icer Hx of Blood Transfusion No 07/13/25 15:13 Hx of Transfusion in last 3 No 07/13/25 15:13 Months Date of Last Transfusion (if within last 3 months) Ever experience any problems No 07/13/25 15:13 with transfusion(s)? Specify any problems Hx of Preganancy in last 3 N/A 07/13/25 15:13 Months Nurse Filling Out Transfusion DSCHRIBER 07/13/25 15:13 & Questions: Date: 07/13/25 07/13/25 15:13 Time: 15:14 07/13/25 15:13 Patient unable to answer at this time (ie. confused, unrespo /Reproduction History /Reproductive History - psych sales specialist: /Reproductive Hx- psych sales specialist Hx Now No 07/13/25 15:13 Gestational Age (in weeks): EDC: Hx Hx Para Hx Section SAB No 07/13/25 15:13 Active Medications Active Medications: Current Medications Generic Name Dose Route Start Last Admin Trade Name Freq PRN Reason Stop Dose Admin Lactated Ringer's 1,000 mls @ 15 mls/hr 07/20/25 06:45 07/20/25 07:11 IV 15 mls/hr .Q48H ATTILA Administration PFSH Medical History Asthma CPAP (continuous positive airway pressure) dependence Wears glasses Prostate disease Back pain Trigger middle finger Rotator cuff arthropathy of left shoulder Gastric reflux COPD (chronic obstructive pulmonary disease) Home Medications ?Medication ?Instructions ?Recorded ?Last Taken ?Type cholecalciferol (vitamin D3) 125 125 mcg PO DAILY 03/0812/28/24 History mcg (5,000 unit) tablet (Vitamin D3) finasteride 5 mg tablet 5 mg PO DAILY 12/17/2412/28 History gabapentin 300 mg capsule 300 mg PO QHS 12/17/2412/28 History glucosamine sulfate 500 mg tablet 1,000 mg PO QDAY 03/0812/28/24 History (Glucosamine) pantoprazole 40 mg tablet,delayed 40 mg PO DAILY 12/1707/20/25 04:30 History release pravastatin 20 mg tablet 20 mg PO QHS 12/17/24 History tamsulosin 0.4 mg capsule (Flomax) 0.4 mg PO QHS 12/1712/28/24 History Allergy/AdvReac Type Severity Reaction Status Date / Time No Known Allergies Allergy Verified 07/20/25 06:58 Surgical History H/O radiofrequency ablation (RFA) of nerve of lumbar spine Trigger finger, right middle finger S/P left rotator cuff repair Social History Smoking Status: Former smoker Review of Systems (Anesthesia) ROS Narrative System reviewed and no additional complaints, except as documented. Physical Exam Resp clear to auscultation bilaterally
--- NOTE | 2025-07-20 07:45 | RAD_ITS ---
PROCEDURE: LUMBAR SPINE 2 OR 3 VIEWS 07/20/2025 REASON FOR EXAM: RADIOFREQUENCY ABLATION L4 L5 S1 TECHNIQUE: Procedure Code: RADSPLL Modality: DX Procedure: LUMBAR SPINE 2 OR 3 VIEWS FINDINGS: Intraoperative fluoroscopy was performed. 17.3 seconds of fluoroscopic time. 4.31 mGy. 5 images. See procedure report for full details. RAD/Lumbar Spine 2 or 3 Views IMPRESSION: As above. Reading Location: [id number]
[2025-07-20] MEDS: Lidocaine 1% (30 ml sdv) 30 ML Vial (07:56)
--- NOTE | 2025-07-20 08:08 | OP.PCM_ITS ---
Operative Report (Standard) Operative Information Date of Procedure: 07/20/25 Pre-Operative Diagnosis: Lumbosacral spondylosis, lumbosacral degenerative disc disease, lumbar facet arthropathy Post-Operative Diagnosis: Lumbosacral spondylosis, lumbosacral degenerative disc disease, lumbar facet arthropathy Surgery/Procedure Performed: Left-sided lumbar radiofrequency ablation of the medial branch at L4 L5-S1 under fluoroscopic guidance composite science teacher: No Type of Anesthesia: Local MAC RN Documented Start/Stop Times: Operation Date: 07/20/25 08:00 Case Time Into Pre-Op 07/20/25 06:41 Anesthesia Start 07/20/25 07:49 Into Room 07/20/25 07:49 Procedure Start 07/20/25 07:55 Procedure End 07/20/25 08:06 Procedure Start Time: 08:08 Procedure Stop Time: 08:08 Select all DRAINS/GRAFTS/IMPLANTS that apply: None Estimated Blood Loss: 1 Specimen collected: No Description of surgery: ANESTHESIA: MAC. BLOOD LOSS: Minimal. COMPLICATIONS: None. DESCRIPTION OF PROCEDURE: History and physical of today was reviewed. Risks and benefits of the procedure were explained. The patient understood and agreed to proceed. Informed consent was obtained. IV inserted per routine protocol. The patient was taken to the operating room and placed in the prone position with a pillow positioned underneath the abdomen. The left side of her lower back was prepped and draped in a sterile fashion using iodine x3. Under fluoroscopy guidance in an oblique view, the L3 through S1 vertebral bodies were visualized. The skin and subcutaneous tissue was anesthetized with approximately 10 mL of 1% lidocaine using a 25-gauge regular needle. Under direct visualization on fluoroscopy at approximately 25-degree angle, starting on the left L3, ending on the left S1, passing through the L4 and L5, using a 20-gauge 15-cm with a 10-mm curved active-tip radiofrequency ablation needle, the needle was passed through the skin. The tip of the needle was maneuvered and directed towards the superior medial gutter of the transverse process at the vicinity of the medial branch. Once the tip of the needle was in contact with the bone, the needle was pulled approximately 2 mm off the bone. The stylette of each needle was then removed. After negative aspiration of blood or CSF and confirmation on AP, oblique as well as lateral view, the radiofrequency ablation probe was then inserted at each level. Impedance was then recorded at L3 to vtl483 ohm, at L4 to be 251 ohm, at L5 to be 243 ohm, and at S1 to be 266 ohm. Motor evoked potential was then initiated to 2 Hz and 1.5 volt without any motor response at each corresponding level. The probe was then removed intact and a total of 6 mL of preservative-free 1% lidocaine was injected in divided doses between those four levels after negative aspiration of blood or CSF. The radiofrequency ablation probe was then reinserted. After confirmation on AP, oblique as well as lateral view, radiofrequency ablation was then initiated to 80 degree Celsius for 90 second at each level. Once concluded, the probe was then removed intact. A total of 6 mL of preservative-free 0.25% Marcaine with 40 mg of Depo-Medrol was injected in divided doses between those four levels. The needles were then removed intact. The patient experienced no sign or symptoms of intrathecal or intravascular injection. The patient experienced no paresthesia. The procedure was completed without any apparent difficulty or any complications. The patient appeared to tolerate it well. Sensory as well as motor exam was unchanged from prior to the procedure. ASSESSMENT AND PLAN: This is a 64-year-old male with lumbosacral spondylosis, lumbosacral degenerative disc disease, lumbar facet arthropathy, status post left-sided lumbar radiofrequency ablation of the medial branch at L4-S1, patient will continue his current medications, patient will follow-up in approximately 2 weeks for reevaluation. Surgical Findings: 0 Complications Complications: No Admit VTE Documentation VTE Present on Admission: No VTE Mechan Device Prophylaxis: None VTE Pharm Prophylaxis ordered?: No
--- NOTE | 2025-07-20 08:08 | PCM.POST.ANE ---
Anesthesia: Postop Eval I Current Vital Signs Temperature: 97.4 F Pulse Rate: 67 Blood Pressure: 120/72 Respiratory Rate: 18 Pulse Ox: 98 Assessment Airway patent: Yes Spontaneous unlabored respirations: Yes nausea: No Vomiting: No Anesthesia Complication: No Fluid Hydration Crystalloid volume administer (ml): 300 Total IV fluid infused: 300 Progress Note Anesthesia document: Postop Eval 1 completed: Yes
--- NOTE | 2025-07-20 11:58 | POSTOPAN2_ITS ---
Anesthesia Postop Eval I Sum Postop Eval Completion status Anesthesia document: Postop Eval 1 completed: Yes Anesthesia Postop Eval I Summary Anesthesia Postop Eval I Summary: Anesthesia Postop Eval I: Assessment Summary Airway patent Yes 07/20/25 08:15 [email or web address] Spontaneous unlabored Yes 07/20/25 08:15 [email or web address].CSIR respirations Mental status nausea No 07/20/25 08:15 [email or web address].CSIR Vomiting No 07/20/25 08:15 [email or web address] Anesthesia Postop Eval I: Fluid Summary Crystalloid volume administer 300 07/20/25 08:15 [email or web address] (ml) Colloids volume administered ( ml) Blood Product volume administered (ml) Total IV fluid infused 300 07/20/25 08:15 [email or web address] Anesthesia Postop Eval I: Summary Notes Anesthesia Complication No 07/20/25 08:15 [email or web address] [email or web address] Anesthesia Complication Comment: Post-operative progress note Anesthesia: Postop Eval II Evaluation Mental status: Awake and Calm Pain Level: 1 nausea: No Vomiting: No Complications Anesthesia Complication: No
--- NOTE | 2025-07-20 11:58 | PCM.POSTANE2 ---
Anesthesia Postop Eval I Sum Postop Eval Completion status Anesthesia document: Postop Eval 1 completed: Yes Anesthesia Postop Eval I Summary Anesthesia Postop Eval I Summary: Anesthesia Postop Eval I: Assessment Summary Airway patent Yes 07/20/25 08:15 [email or web address] [email or web address] Spontaneous unlabored Yes 07/20/25 08:15 GAMEWELL OPERATOR.CSIR respirations Mental status nausea No 07/20/25 08:15 GAMEWELL OPERATOR.CSIR Vomiting No 07/20/25 08:15 GAMEWELL OPERATOR.CSIR Anesthesia Postop Eval I: Fluid Summary Crystalloid volume administer 300 07/20/25 08:15 GAMEWELL OPERATOR.CSIR (ml) Colloids volume administered ( ml) Blood Product volume administered (ml) Total IV fluid infused 300 07/20/25 08:15 GAMEWELL OPERATOR.CSIR Anesthesia Postop Eval I: Summary Notes Anesthesia Complication No 07/20/25 08:15 GAMEWELL OPERATOR.CSIR Anesthesia Complication Comment: Post-operative progress note Anesthesia: Postop Eval II Evaluation Mental status: Awake and Calm Pain Level: 1 nausea: No Vomiting: No Complications Anesthesia Complication: No
== END 2025-07-20 08:44 | disposition home or self-care (01) ==
LOC: SDC 06:40 → AC 06:42
PROVIDERS: PCP Internal Medicine; Referring Provider Anesthesiology Pain Medicine; Visit Provider Anesthesiology Pain Medicine
PROC: (CPT 64635; principal; 2025-07-20 07:55)
DX: M51.379 Other intervertebral disc degeneration, lumbosacral region without mention of lumbar back pain or lower extremity pain (principal); J44.9 Chronic obstructive pulmonary disease, unspecified; M47.817 Spondylosis without myelopathy or radiculopathy, lumbosacral region; M46.96 Unspecified inflammatory spondylopathy, lumbar region; G47.30 Sleep apnea, unspecified; K21.9 Gastro-esophageal reflux disease without esophagitis; Z79.899 Other long term (current) drug therapy; Z87.891 Personal history of nicotine dependence
CPT/HCPCS: 64635; 64636; 01992; 72100; 76000; J2405